=== PATIENT | female | born 1945 | race African-American/Black ===

== ENCOUNTER 2016-12-17 15:52 | Inpatient (IN) | payer OTHER ==
--- NOTE | 2016-12-17 16:46 | PDOC ---
[id number] Illness Initial Comments: 12/17/16 18:00 Ms. Valentine is a 71-year-old female with a PMH of RA, TIA, COPD, right kidney cyst, hypertension, ascending aortic aneruysm (4.5cm)and depression presenting to the ED today with altered mental status 1 week. Patient is a poor historian information from this exam is given by her daughter. Daughter states patient fell on her right hip/side. She was not examined at the time of the fall as daughter believes she did not hit her head or lose consciousness. Fall was unwitnessed. It is unclear as to why she fell. Daughter states that since the fall the patients mental status has been declining. She is unable to give an accurate account of events over the past week. Pt. has no history of dementia. According to the daughter, pt has been vomiting the past two days and is unable to keep solids or fluids down. She also appears to be more short of breath than usual. Daughter reports the patient has an unexplained 30 pound weight loss and is currently being followed by GI. Denies diarrhea or constipation. Denies fever chills, chest pain, palpitations, abdominal pain, dyspnea, and cough. Daughter believes that pt. had a flu shot this year. 12/17/16 18:13 12/17/16 18:39 <Sarita Shields - Last Filed: 12/17/16 18:58> <Neela Burns - Last Filed: 12/17/16 21:29> <Esmer Hyde - Last Filed: 12/20/16 09:51> - General Chief Complaint: Altered Mental Status Stated Complaint: ALTERED MENTAL STATUS Time Seen by Provider: 12/17/16 16:39 Past History - Travel Traveled outside of the country in the last 30 days: No - Past Medical History Cardiac Disorders: No CVA: Yes (TIAs) COPD: Yes (PNEUMONIA) CHF: No Dementia: No Diabetes: Yes (NIDDM) GI Disorders: Yes (Rectal bleed 2013) Disorders: No HTN: Yes Hypercholesterolemia: Yes Liver Disease: No Seizures: No Thyroid Disease: No Other medical history: thoracic aneurysm - Surgical History Abdominal Surgery: Yes Appendectomy: No Cardiac Surgery: No Cholecystectomy: Yes GI Surgery: Yes (bleeding ulcers) Lung Surgery: No Neurologic Surgery: No Orthopedic Surgery: Yes (ACL repair) - Psycho/Social/Smoking Cessation Hx Anxiety: No Suicidal Ideation: No Smoking Status: Yes Smoking History: Current every day smoker Have you smoked in the past 12 months: Yes Number of Cigarettes Smoked Daily: 10 If you are a former smoker, when did you quit?: 6 months Information on smoking cessation initiated: Yes 'Breaking Loose' booklet given: 12/17/14 Hx Alcohol Use: No Drug/Substance Use Hx: No Substance Use Type: None Hx Substance Use Treatment: No <Sarita Shields - Last Filed: 12/17/16 18:58> <Neela Burns - Last Filed: 12/17/16 21:29> <Esmer Hyde - Last Filed: 12/20/16 09:51> - Past Medical History Allergies/Adverse Reactions: Allergies Allergy/AdvReac Type Severity Reaction Status Date / Time No Known Allergies Allergy Verified 12/17/16 15:54 Home Medications: Ambulatory Orders Amlodipine Besylate [Norvasc -] 10 mg PO HS 04/30/15 Aspirin [ASA -] 81 mg PO Q2D 04/30/15 Glipizide [Glipizide ER] 5 mg PO DAILY 04/30/15 Metformin HCl [Metformin HCl ER] 500 mg PO DAILY 04/30/15 Metoprolol Tartrate 100 mg PO DAILY 04/30/15 Morphine Sulfate 30 mg PO DAILY 04/30/15 Multivitamins [Multivit ([facility] Formulary)] 1 tab PO DAILY 04/30/15 Omeprazole [Prilosec (RX)] 40 mg PO DAILY 04/30/15 Oxycodone HCl/Acetaminophen [Percocet 7.5-325 mg Tablet] 1 tab PO Q6H PRN Losartan/Hydrochlorothiazide [Hyzaar 50-12.5 Tablet] 1 each PO DAILY #0 tablet 05/05/15 Albuterol Sulfate Inhaler - [Ventolin Hfa Inhaler -] 2 inh PO Q6H 04/01/16 Fluticasone Prop 0.05% Nasal [Flonase -] 1 - 2 spray NS DAILY 04/01/16 Ipratropium/Albuterol Sulfate [Combivent Respimat Inhal [place]] 4 gm IH BID 04/01 Paroxetine HCl [Paxil] 10 mg PO HS 04/01/16 Ranolazine [Ranexa -] 500 mg PO DAILY 04/01/16 Salmeterol/Fluticasone [Advair 100Mcg/50Mcg -] 1 inh PO BID 04/01/16 Simethicone [Mylicon -] 80 mg PO DAILY PRN 04/01/16 Lipase/Protease/Amylase [[place] 36,000 Units Capsule] 1 each PO TID 12/17/16 *Physical Exam - Vital Signs Last Vital Signs Temp Pulse Resp BP Pulse Ox 98.0 F 100 H 20 130/64 90 L 12/17/16 15:57 12/17/16 15:57 12/17/16 15:57 12/17/16 15:57 12/17/16 15:57 - Physical Exam Comments: 12/17/16 18:39 Head: Normocephalic, atraumatic. No step offs or crepitic felt. Neuro: Pt. is AAOx2. Cannot remember day or month. Aware of person and place. Failed 3 word recall test, 0/3. Sensation and motor is grossly intact b/l. Arm strength B/L 5/5, Leg strength 5/5. no obvious focal neurologic defects. Cranial nerves II-XII grossly intact. HEENT: positive: EOMI, MEHUL, Normal ENT Inspection Neck: positive: Supple. negative: Lymphadenopathy (R), Lymphadenopathy (L) Respiratory/Chest: positive: Wheezing (Expiratory wheeze biliaterally). negative: Respiratory Distress, Accessory Muscle Use Cardiovascular: positive: Regular Rhythm, Regular Rate, S1, S2. negative: Murmur Gastrointestinal/Abdominal: positive: Normal Bowel Sounds, Flat, Soft Integumentary: positive: Bruising (Right hip s/p hfall) Neurologic: positive: preparer samples and repairs II-XII NML intact, Responsive, Disoriented (AAOx2 unaware of date and month) <Sarita Shields - Last Filed: 12/17/16 18:58> - Vital Signs Last Vital Signs Temp Pulse Resp BP Pulse Ox 98.0 F 100 H 20 130/64 90 L 12/17/16 15:57 12/17/16 15:57 12/17/16 15:57 12/17/16 15:57 12/17/16 15:57 <Neela Burns - Last Filed: 12/17/16 21:29> - Vital Signs Last Vital Signs Temp Pulse Resp BP Pulse Ox 98.2 F 99 H 20 138/71 95 12/20/16 06:05 12/20/16 06:05 12/20/16 06:05 12/20/16 06:05 12/20/16 01:00 <Esmer Hyde - Last Filed: 12/20/16 09:51> ED Treatment Course - LABORATORY CBC & Chemistry Diagram: 12/17/16 17:50 12/17/16 17:50 <Sarita Shields - Last Filed: 12/17/16 18:58> - LABORATORY CBC & Chemistry Diagram: 12/17/16 17:50 12/17/16 17:50 - ADDITIONAL ORDERS Additional order review: Laboratory Results 12/17/16 12/17/16 12/17/16 17:50 17:50 17:50 Sodium 145 Potassium 4.3 D Chloride 100 Carbon Dioxide 31 Anion Gap 14 BUN 18 D Creatinine 0.9 Creat Clearance w eGFR > 60 Random Glucose 124 H Lactic Acid 1.446 Calcium 10.7 H Total Bilirubin 0.6 D AST 17 D ALT 21 D Alkaline Phosphatase 65 Creatine Kinase 56 Troponin I < 0.02 Total Protein 7.7 Albumin 3.7 12/17/16 17:50 RBC 5.18 MCV 92.5 MCHC 33.0 RDW 14.1 MPV 8.0 Neutrophils % 46.8 D Lymphocytes % 41.7 H D Monocytes % 8.1 Eosinophils % 1.0 D Basophils % 2.4 H D - Medications Given in the ED: ED Medications Discontinued Medications Generic Name Dose Route Start Last Admin Trade Name Freq PRN Reason Stop Dose Admin Sodium Chloride 500 mls @ 500 mls/hr 12/17/16 17:24 12/17/16 18:01 Normal Saline - IV 12/17/16 18:23 500 mls/hr ASDIR STA Administration Ondansetron HCl 4 mg 12/17/16 20:01 12/17/16 20:08 Zofran Injection IVPUSH 12/17/16 20:02 4 mg ONCE ONE Administration - Consult/PCP Time Called: 09:30 (Dr. Hill/admit to hospitalist) <Neela Burns - Last Filed: 12/17/16 21:29> - LABORATORY CBC & Chemistry Diagram: 12/17/16 17:50 12/18/16 06:00 - ADDITIONAL ORDERS Additional order review: 12/17/16 17:50 RBC 5.18 MCV 92.5 MCHC 33.0 RDW 14.1 MPV 8.0 Neutrophils % 46.8 D Lymphocytes % 41.7 H D Monocytes % 8.1 Eosinophils % 1.0 D Basophils % 2.4 H D - Medications Given in the ED: ED Medications Discontinued Medications Generic Name Dose Route Start Last Admin Trade Name Dylan PRN Reason Stop Dose Admin Sodium Chloride 500 mls @ 500 mls/hr 12/17/16 17:24 12/17/16 18:01 Normal Saline - IV 12/17/16 18:23 500 mls/hr ASDIR STA Administration Sodium Chloride 1,000 mls @ 75 mls/hr 12/17/16 23:45 12/18/16 01:31 Normal Saline - IV 75 mls/hr ASDIR IVANIA Administration Sodium Chloride 1,000 mls @ 75 mls/hr 12/18/16 20:30 12/18/16 21:00 1/2 Normal Saline IV 12/19/16 09:49 75 mls/hr ASDIR IVANIA Administration Ondansetron HCl 4 mg 12/17/16 20:01 12/17/16 20:08 Zofran Injection IVPUSH 12/17/16 20:02 4 mg ONCE ONE Administration <Esmer Hyde - Last Filed: 12/20/16 09:51> Medical Decision Making - Medical Decision Making 12/17/16 18:43 Pt. is a 71 y/o female with a complex medical hx presenting to the ED with altered mental status x1 week. Because of unwitnessed fall with no treatment, we will obtain a head CT to r/o any trauma. EKG, Cardiac labs ordered to r/o a cardiac origin CBC, CMP, lactic acid, CXR ordered to r/o infection as source Will gently hydrate. Re-evaluate. EKG appears unchanged from last visit on Apr [address]-T changes. <Sarita Shields - Last Filed: 12/17/16 18:58> *DC/Admit/Observation/Transfer <Sarita Shields - Last Filed: 12/17/16 18:58> - Discharge Dispostion Admit: Yes <Neela Burns - Last Filed: 12/17/16 21:29> - Attestations Physician Attestion: I reviewed the case with the mid-level practitioner and agree with the mid- level practitioner's assessment, diagnosis and disposition. <Esmer Hyde - Last Filed: 12/20/16 09:51> Diagnosis at time of Disposition: Altered mental state Qualifiers: Altered mental status type: unspecified Qualified Code(s): R41.82 - Altered mental status, unspecified - Discharge Dispostion Condition at time of disposition: Guarded - Referrals
[2016-12-17] MEDS ORDERED: SODIUM CHLORIDE 500 ML IV STA (17:24)
[2016-12-17 18:24] LABS: BASOPHIL 2.4 % (0-2.0); MCH 30.6 pg (25.7-33.7); MEAN CELL VOLUME 92.5 fl (80-96); NEUTROPHILS 46.8 % (42.8-82.8); PLATELET COUNT 325 K/MM3 (134-434); RDW 14.1 % (11.6-15.6); WHITE BLOOD COUNT 4.2 K/mm3 (4.0-10.0)
[2016-12-17 18:49] LABS: ALBUMIN 3.7 g/dl (3.4-5.0); ANION GAP 14 (8-16); CALCIUM 10.7 mg/dL (8.5-10.1); CO2 31 mmol/L (21-32); CREATININE 0.9 mg/dL (0.55-1.02); GLUCOSE,RANDOM 124 mg/dL (74-106); SGOT/AST 17 U/L (15-37); SGPT/ALT 21 U/L (12-78)
[2016-12-17 18:51] LABS: ALK PHOS 65 U/L (45-117); BILIRUBIN,TOTAL 0.6 mg/dL (0.2-1.0); TOT PROT 7.7 g/dl (6.4-8.2)
[2016-12-17 18:53] LABS: TROPONIN I < 0.02 ng/ml (0.00-0.05)
[2016-12-17] MEDS ORDERED: ONDANSETRON 4 MG/2 ML VIAL IVPUSH ONE (20:01)
[2016-12-17] MEDS ORDERED: ONDANSETRON 4 MG/2 ML VIAL ONE (20:05)
--- NOTE | 2016-12-17 23:29 | HP ---
<Nena Manzano - Last Filed: 12/18/16 00:04> CHIEF COMPLAINT: AMS PCP: N/A HISTORY OF PRESENT ILLNESS: The patient is a 71 yo F, with daughter at bedside with a PMHx of depression with AMS for the past 3 days. The patients daughter states that 2 days ago, she was found outside her apartment unaware where her apartment was. Neighbors contacted the daughter and since then has noticed altered mental status, confusion and unsteady gait. The patients daughter also reports decreased appetite and unexplained weight loss and excessive vomiting. It is also noted that, the patient fell a week ago however denies any current pain. The patient was recently treated for URI and finished course of Augmentin. Recent Travel: None PAST MEDICAL HISTORY: RA TIA R Kidney cyst HTN Infarct (head) Ascending aortic aneurysm (4.5 cm) NIDD Type 2 Depression GI Bleed PAST SURGICAL HISTORY: Cardiac Catheterization L knee Arthroscopic Surgery Social History: Smoking: Current everyday tobacco smoker Alcohol: None Drugs: None Family History: Father- [place] Allergies No Known Allergies Allergy (Verified 12/17/16 15:54) HOME MEDICATIONS: Medication Instructions Recorded Amlodipine Besylate [Norvasc -] 10 mg PO HS 04/30/15 Aspirin [ASA -] 81 mg PO Q2D 04/30/15 Glipizide [Glipizide ER] 5 mg PO DAILY 04/30/15 Metformin HCl [Metformin HCl ER] 500 mg PO DAILY 04/30/15 Metoprolol Tartrate 100 mg PO DAILY 04/30/15 Morphine Sulfate 30 mg PO DAILY 04/30/15 Multivitamins [Multivit ([facility] 1 tab PO DAILY 04/30/15 Formulary)] Omeprazole [Prilosec (RX)] 40 mg PO DAILY 04/30/15 Oxycodone HCl/Acetaminophen 1 tab PO Q6H PRN 04/30/15 [Percocet 7.5-325 mg Tablet] Losartan/Hydrochlorothiazide 1 each PO DAILY #0 tablet 05/05/15 [Hyzaar 50-12.5 Tablet] Albuterol Sulfate Inhaler - 2 inh PO Q6H 04/01/16 [Ventolin Hfa Inhaler -] Fluticasone Prop 0.05% Nasal 1 - 2 spray NS DAILY 04/01/16 [Flonase -] Ipratropium/Albuterol Sulfate 4 gm IH BID 04/01/16 [Combivent Respimat Inhal [place]] Paroxetine HCl [Paxil] 10 mg PO HS 04/01/16 Ranolazine [Ranexa -] 500 mg PO DAILY 04/01/16 Salmeterol/Fluticasone [Advair 1 inh PO BID 04/01/16 100Mcg/50Mcg -] Simethicone [Mylicon -] 80 mg PO DAILY PRN 04/01/16 Lipase/Protease/Amylase [Creon Dr 1 each PO TID 12/17/16 36,000 Units Capsule] REVIEW OF SYSTEMS CONSTITUTIONAL: Absent: fever, chills, diaphoresis, generalized weakness, malaise, loss of appetite, weight change HEENT: Absent: rhinorrhea, nasal congestion, throat pain, throat swelling, difficulty swallowing, mouth swelling, ear pain, eye pain, visual changes CARDIOVASCULAR: Absent: chest pain, syncope, palpitations, irregular heart rate, lightheadedness , peripheral edema RESPIRATORY: Absent: cough, shortness of breath, dyspnea with exertion, orthopnea, wheezing, stridor, hemoptysis GASTROINTESTINAL: Absent: abdominal pain, abdominal distension, nausea, vomiting, diarrhea, constipation, melena, hematochezia GENITOURINARY: Absent: dysuria, frequency, urgency, hesitancy, hematuria, flank pain, genital pain MUSCULOSKELETAL: Absent: myalgia, arthralgia, joint swelling, back pain, neck pain SKIN: Absent: rash, itching, pallor HEMATOLOGIC/IMMUNOLOGIC: Absent: easy bleeding, easy bruising, lymphadenopathy, frequent infections ENDOCRINE: Absent: unexplained weight gain, unexplained weight loss, heat intolerance, cold intolerance NEUROLOGIC: +mental status change. + unsteady gait. Absent: headache, focal weakness or paresthesias, dizziness, seizure, bladder or bowel incontinence PSYCHIATRIC: Absent: anxiety, depression, suicidal or homicidal ideation, hallucinations. PHYSICAL EXAMINATION Vital Signs - 24 hr 12/17/16 23:17 Pulse Rate [ 88 Right Radial] Respiratory 20 Rate Blood Pressure 126/65 [Left Arm] O2 Sat by Pulse 97 Oximetry (%) GENERAL: +Confusion. +Disoriented to time. Awake, alert and in no acute distress. HEAD: Normal with no signs of trauma. EYES: Pupils equal, round and reactive to light, extraocular movements intact, sclera anicteric, conjunctiva clear. No lid lag. EARS, NOSE, THROAT: Ears normal, nares patent, oropharynx clear without exudates. Moist mucous membranes. NECK: Normal range of motion, supple without lymphadenopathy, JVD, or masses. LUNGS: + Bilateral bibasilar scattered wheezing. Breath sounds equal. No crackles. No accessory muscle use. HEART: Regular rate and rhythm, normal S1 and S2 without murmur, rub or gallop. ABDOMEN: Soft, nontender, not distended, normoactive bowel sounds, no guarding, no rebound, no masses. No hepatomegaly or splenomegaly. MUSCULOSKELETAL: Normal range of motion at all joints. No bony deformities or tenderness. No CVA tenderness. UPPER EXTREMITIES: 2+ pulses, warm, well-perfused. No cyanosis. No clubbing. Cap refill <2 seconds. No peripheral edema. LOWER EXTREMITIES: 2+ pulses, warm, well-perfused. No calf tenderness. No peripheral edema. NEUROLOGICAL: Cranial nerves II-XII intact. Normal speech. PSYCHIATRIC: Cooperative. Good eye contact. Appropriate mood and affect. SKIN: Warm, dry, normal turgor, no rashes or lesions noted. Imaging: Cranial CT without contrast Chronic left basal ganglia infarct (involving the head of the caudate nucleus). Mild to moderate periventricular and subcortical chronic microvascular ischemic changes. No gross mass lesion is identified. No extra axial fluid collections. The ventricles and cisterns appear unremarkable. Impression: No CT evidence of acute intracranial pathology. Chronic findings as discussed. ASSESSMENT/PLAN: 1.) AMS- acute metabolic encephalopathy vs CVA vs new onset dementia. As per daughter, abrupt onset of symptoms. Nonfocal exam however is confused and disoriented. CT Scan suggestive of chronic microvascular ischemic changes and L basal ganglia infarct. Patient noted to have decreased PO intake. - r/o infectious processes - Obtain urine analysis - IVF hydration - Avoid narcotics (taking percocet at home) - B12 Levels - Neurology Evaluation - Physical therapy assessment 2.) HTN stable - Continue home meds 3.) Hx of vomiting, decreased oral intake and unexplained weight loss over the past year. - Nutritional consult - Zofran PRN - IVF hydration 4.) COPD- Stable( no signs of exacerbation) Chronic smoker - Nebulizers PRN 5.) Diabetes Management - Continue current medications and Accuchecks with Sliding scale coverage 6.) DVT PPx - SCDs Admit to observation. Documentation prepared by Nena Manzano, acting as medical transport specialist for Otoniel Trujillo MD. <Otoniel Trujillo - Last Filed: 12/18/16 00:36> Visit type - Emergency Visit Emergency Visit: Yes ED Registration Date: 12/17/16 Care time: The patient presented to the Emergency Department on the above date and was hospitalized for further evaluation of their emergent condition. - New Patient This patient is new to me today: Yes Date on this admission: 12/17/16 - Critical Care Critical Care patient: No
[2016-12-17] MEDS ORDERED: SODIUM CHLORIDE 1,000 ML IV SCH (23:45)
[2016-12-17] MEDS ORDERED: ALBUTEROL SO4 6.7 GM HFA INHALER IH PRN (23:45)
[2016-12-18 02:27] VITALS: BMI 23.3
[2016-12-18] MEDS: glipiZIDE-XL 5 MG TAB.ER.24 PO SCH (06:10)
[2016-12-18] MEDS: INSULIN SLIDING SCALE (NOVOLOG) 1 VIAL SQ SCH ×4 (06:11→22:13)
[2016-12-18 07:54] LABS: CALCIUM 9.9 mg/dL (8.5-10.1); CREATININE 0.8 mg/dL (0.55-1.02)
[2016-12-18 09:15] LABS: URINE APPEARANCE CLEAR; URINE BILIRUBIN NEGATIVE (NEGATIVE); URINE BLOOD NEGATIVE (NEGATIVE); URINE COLOR AMBER; URINE GLUCOSE (UA) NEGATIVE (NEGATIVE); URINE KETONE NEGATIVE (NEGATIVE); URINE LEUK ESTERASE NEGATIVE (NEGATIVE); URINE NITRITE NEGATIVE (NEGATIVE); URINE UROBILINOGEN NEGATIVE E.U./dl (0.2-1.0)
[2016-12-18 09:21] LABS: URINE PROTEIN 1+ (NEGATIVE)
[2016-12-18 09:23] LABS: GRANULAR CASTS 17 /lpf; URINE BACTERIA MODERATE /hpf (NONE SEEN); URINE HYALINE CAST 8 /lpf; URINE MUCUS MANY; URINE RBC 1 /hpf (0-3); URINE WBC 9 /hpf (3-5)
[2016-12-18] MEDS ORDERED: FLUTICASONE PROP 0.05% 16 GM NASAL SPRAY NS SCH (10:00)
[2016-12-18] MEDS ORDERED: PATIENT'S OWN MEDICATION (NON-FORMULARY) (Ipratropium/Albuterol Sulfate [Combivent Respima IH SCH (10:00)
[2016-12-18] MEDS: PANTOPRAZOLE 40 MG TABLET (FP) PO SCH (12:37)
[2016-12-18] MEDS: SIMETHICONE 80 MG TAB.CHEW (FP) PO PRN (12:38)
[2016-12-18] MEDS: RANOLAZINE E.R. 500 MG TABLET (FP) PO SCH (12:38)
[2016-12-18] MEDS: FLUTICASONE PROP 0.05% 16 GM NASAL SPRAY NS SCH ×2 (12:38→12:39)
[2016-12-18] MEDS: FLUTICASONE/SALMETEROL 100 MCG/50 MCG DISKUS IH SCH ×2 (12:38→22:08)
--- NOTE | 2016-12-18 13:40 | CON.NEURO ---
Consult Consult Specialty:: Aisha neurology Referred by:: ER Reason for Consultation:: AMS - History of Present Illness History of Present Illness: 71 man with ams Seen on the floor Head Ct reviewed I saw the patient on the floor patient was confused agitated patient was in the cord or Exam was limited basically to the nursing report of any seizure like activity Patient's on IV fluid confused combative at time PAST MEDICAL HISTORY: RA TIA R Kidney cyst HTN Infarct (head) Ascending aortic aneurysm (4.5 cm) NIDD Type 2 Depression GI Bleed - History Source History Provided By: Patient Limitations to Obtaining History: Clinical Condition - Past Medical History Cardio/Vascular: Yes: HTN Pulmonary: Yes: COPD Rheumatology: Yes: Rheumatoid Arthritis Endocrine: Yes: Diabetes Mellitus - Past Surgical History Past Surgical History: Yes: Hysterectomy, Appendectomy, Cholecystectomy - Alcohol/Substance Use Hx Alcohol Use: No - Smoking History Smoking history: Current every day smoker Have you smoked in the past 12 months: Yes Aproximately how many cigarettes per day: 10 If you are a former smoker, when did you quit?: 6 months Home Medications - Allergies Allergies/Adverse Reactions: Allergies Allergy/AdvReac Type Severity Reaction Status Date / Time No Known Allergies Allergy Verified 12/17/16 15:54 - Home Medications Home Medications: Ambulatory Orders Amlodipine Besylate [Norvasc -] 10 mg PO HS 04/30/15 Aspirin [ASA -] 81 mg PO Q2D 04/30/15 Glipizide [Glipizide ER] 5 mg PO DAILY 04/30/15 Metformin HCl [Metformin HCl ER] 500 mg PO DAILY 04/30/15 Metoprolol Tartrate 100 mg PO DAILY 04/30/15 Morphine Sulfate 30 mg PO DAILY 04/30/15 Multivitamins [Multivit ([facility] Formulary)] 1 tab PO DAILY 04/30/15 Omeprazole [Prilosec (RX)] 40 mg PO DAILY 04/30/15 Oxycodone HCl/Acetaminophen [Percocet 7.5-325 mg Tablet] 1 tab PO Q6H PRN Losartan/Hydrochlorothiazide [Hyzaar 50-12.5 Tablet] 1 each PO DAILY #0 tablet 05/05/15 Albuterol Sulfate Inhaler - [Ventolin Hfa Inhaler -] 2 inh PO Q6H 04/01/16 Fluticasone Prop 0.05% Nasal [Flonase -] 1 - 2 spray NS DAILY 04/01/16 Ipratropium/Albuterol Sulfate [Combivent Respimat Inhal [place]] 4 gm IH BID 04/01 Paroxetine HCl [Paxil] 10 mg PO HS 04/01/16 Ranolazine [Ranexa -] 500 mg PO DAILY 04/01/16 Salmeterol/Fluticasone [Advair 100Mcg/50Mcg -] 1 inh PO BID 04/01/16 Simethicone [Mylicon -] 80 mg PO DAILY PRN 04/01/16 Lipase/Protease/Amylase [[place] 36,000 Units Capsule] 1 each PO TID 12/17/16 Family Disease History - Family Disease History Family History: Unable to Obtain Family Disease History: Heart Disease: Father, Brother, Sister Review of Systems - Review of Systems Constitutional: reports: No Symptoms Eyes: reports: No Symptoms Physical Exam-Neuro Vital Signs: Vital Signs Temperature 98.8 F 12/18/16 06:00 Pulse Rate 107 H 12/18/16 06:00 Respiratory Rate 18 12/18/16 06:00 Blood Pressure 135/86 12/18/16 06:00 O2 Sat by Pulse Oximetry (%) 97 12/17/16 23:17 Constitutional: Yes: Well Nourished Neck: Yes: WNL Labs: CBC, BMP 12/18/16 06:00 - Neuro Exam Level Of Consciousness: Yes: Oriented to Person, Oriented to Place Eyes: Yes: PERRLA Speech: WNL Dominant Hand: Right Mini Mental Exam: 22 Gag: Present DTR's: 1+ Left Bicep, 1+ Right Bicep, 1+ Right Tricep, 1+ Left Brachioradialis, 1+ Left Achilles, 1+ Right Achilles Response to light touch: Abnormal Response to pain prick: Abnormal Response to temperature: Abnormal Motor Strength: 3/5: Left Arm, Right Arm, Left Leg, Right Leg Imaging - Results Cat Scan: Image Reviewed Problem List - Problems (1) Altered mental state Code(s): R41.82 - ALTERED MENTAL STATUS, UNSPECIFIED Qualifiers: Altered mental status type: unspecified Qualified Code(s): R41.82 - Altered mental status, unspecified (2) CVA (cerebral vascular accident) Code(s): I63.9 - CEREBRAL INFARCTION, UNSPECIFIED Assessment/Plan Head Ct with ?? age caudate left CVA 1. Neuro checks' 2. MRI brain with no Rohan 3. EEG 4. Blood work 5. Two baby ASA Thank you fro [facility] referral
[2016-12-18] MEDS: LOSARTAN 50MG/HCTZ 12.5MG 1 TAB (FP) PO SCH (17:46)
--- NOTE | 2016-12-18 19:09 | PN ---
Physical Exam: SUBJECTIVE: Patient seen and examined This patient is a 71 yo female with a PMHx of depression with AMS for the past 3 days. As per daughter patient has dementia for the past one year with worsening dementia for the past 4 days, also patient was found in her neighbor' s house as per Daughter .Patient is confused , disoriented x2, except oriented to her daughter. Patient lives with her daughter who is a nurse. It is also noted that, the patient fell a week ago however denies any current pain. The patient was recently treated for URI and finished course of Augmentin. OBJECTIVE: Vital Signs Period Temp Pulse Resp BP Sys/Cox Pulse Ox Last 24 Hr 98.0 F-99 F 88-107 18-20 125-136/65-86 97-97 GENERAL: The patient is awake, alert, and disoriented x 2 , place and time but in no acute distress. HEAD: Normal with no signs of trauma. EYES: PERRL, extraocular movements intact, sclera anicteric, conjunctiva clear. ENT: Ears normal, nares patent, oropharynx clear without exudates, moist mucous membranes. NECK: Trachea midline, full range of motion, supple. LUNGS: Breath sounds equal, clear to auscultation bilaterally, no wheezes, no crackles, no accessory muscle use. HEART: Regular rate and rhythm, S1, S2 positive, DARCIE 2/6 , no rub or gallop. ABDOMEN: Soft, nontender, nondistended, normoactive bowel sounds, no guarding, no rebound, no hepatosplenomegaly, no masses. EXTREMITIES: 2+ pulses, warm, well-perfused, no edema. NEUROLOGICAL: Cranial nerves II through XII grossly intact. Normal speech, gait is normal PSYCH: Normal mood, normal affect. SKIN: Warm, dry, normal turgor, no rashes or lesions noted Laboratory Results - last 24 hr 12/18/16 12/18/16 12/18/16 05:57 06:00 06:00 Sodium 141 Potassium 3.8 Chloride 101 Carbon Dioxide 30 Anion Gap 10 BUN 16 Creatinine 0.8 POC Glucometer 115 Random Glucose 128 H Calcium 9.9 Ammonia Vitamin B12 Urine Color Wendy Urine Appearance Clear Urine pH 5.0 Ur Specific [place] 1.023 Urine Protein 1+ H Urine Glucose (UA) Negative Urine Ketones Negative Urine Blood Negative Urine Nitrite Negative Urine Bilirubin Negative Urine Urobilinogen Negative Ur Leukocyte Esterase Negative Urine RBC 1 Urine WBC 9 Ur Epithelial Cells Rare Urine Bacteria Moderate Hyaline Casts 8 Granular Casts 17 Urine Mucus Many 12/18/16 12/18/16 12/18/16 11:44 13:45 13:45 Sodium Potassium Chloride Carbon Dioxide Anion Gap BUN Creatinine POC Glucometer 67 Random Glucose Calcium Ammonia 23.3 Vitamin B12 1508 H Urine Color Urine Appearance Urine pH Ur Specific [place] Urine Protein Urine Glucose (UA) Urine Ketones Urine Blood Urine Nitrite Urine Bilirubin Urine Urobilinogen Ur Leukocyte Esterase Urine RBC Urine WBC Ur Epithelial Cells Urine Bacteria Hyaline Casts Granular Casts Urine Mucus 12/18/16 17:51 Sodium Potassium Chloride Carbon Dioxide Anion Gap BUN Creatinine POC Glucometer 141 Random Glucose Calcium Ammonia Vitamin B12 Urine Color Urine Appearance Urine pH Ur Specific [place] Urine Protein Urine Glucose (UA) Urine Ketones Urine Blood Urine Nitrite Urine Bilirubin Urine Urobilinogen Ur Leukocyte Esterase Urine RBC Urine WBC Ur Epithelial Cells Urine Bacteria Hyaline Casts Granular Casts Urine Mucus Active Medications Generic Name Dose Route Start Last Admin Trade Name Freq PRN Reason Stop Dose Admin Acetaminophen 650 mg 12/18/16 18:34 Tylenol - PO Q4H PRN FEVER OR PAIN Albuterol Sulfate 2 puff 12/17/16 23:45 Ventolin Hfa Inhaler - IH Q6H PRN Amlodipine Besylate 10 mg 12/18/16 22:00 Norvasc - PO HS IVANIA Aspirin 81 mg 12/19/16 10:00 Asa - PO Q2D IVANIA Fluticasone Propionate 1 spray 12/18/16 10:00 12/18/16 12:39 Flonase - NS 1 spray DAILY IVANIA Administration Fluticasone Propionate 2 spray 12/18/16 10:00 12/18/16 12:38 Flonase - NS 2 spray DAILY IVANIA Administration Glipizide 5 mg 12/18/16 07:00 12/18/16 06:10 Glucotrol Xl - PO 5 mg DAILY@0700 IVANIA Administration HCTZ/Losartan Potassium 1 tab 12/18/16 10:00 12/18/16 17:46 Hyzaar - PO Not Given DAILY IVANIA Sodium Chloride 1,000 mls @ 75 mls/hr 12/17/16 23:45 12/18/16 01:31 Normal Saline - IV 75 mls/hr ASDIR IVANIA Administration Insulin Aspart 1 vial 12/18/16 07:00 12/18/16 17:52 Novolog Vial Sliding Scale - SQ Not Given ACHS IVANIA Protocol Metformin HCl 500 mg 12/18/16 07:00 12/18/16 06:10 Glucophage Xr - PO 500 mg AM IVANIA Administration Non-Formulary Medication 4 gm 12/18/16 10:00 Ipratropium/Albuterol Sulfate [Combivent Respimat Inhal [place]] IH BID IVANIA Pantoprazole Sodium 40 mg 12/18/16 10:00 12/18/16 12:37 Protonix - PO 40 mg DAILY IVANIA Administration Paroxetine HCl 10 mg 12/18/16 22:00 Paxil Oral Suspension - PO HS IVANIA Ranolazine 500 mg 12/18/16 10:00 12/18/16 12:38 Ranexa - PO 500 mg DAILY IVANIA Administration Fluticasone/Salmeterol 1 puff 12/18/16 10:00 12/18/16 12:38 Advair 100mcg/50mcg - IH 1 puff BID IVANIA Administration Simethicone 80 mg 12/17/16 23:36 12/18/16 12:38 Mylicon - PO 80 mg DAILY PRN Administration DYSPEPSIA Cranial CT without contrast Chronic left basal ganglia infarct (involving the head of the caudate nucleus). Mild to moderate periventricular and subcortical chronic microvascular ischemic changes. No gross mass lesion is identified. No extra axial fluid collections. The ventricles and cisterns appear unremarkable. Impression: No CT evidence of acute intracranial pathology. Chronic findings as discussed. ASSESSMENT/PLAN: This patient is a 71 yo female with a PMHx of depression with AMS for the past 3 days. was brought in for further w/u by her daughter. # AMS- acute metabolic encephalopathy vs CVA vs progressive dementia. CT Scan suggestive of chronic microvascular ischemic changes and L basal ganglia infarct. Patient noted to have decreased PO intake. Avoid narcotics (taking percocet at home), IVF, B12 Levels ordered pending, Neurology Evaluation appreciated, MRI of the brain ordered - Physical therapy assessment # HTN stable Continue home meds # Hx of COPD- Stable, Chronic smoker , Nebulizers PRN # T2DM , continue metformin, Diabetic Management, SS with coverage with Sliding scale DVT PPx SCDs Visit type - Emergency Visit Emergency Visit: Yes ED Registration Date: 12/17/16 Care time: The patient presented to the Emergency Department on the above date and was hospitalized for further evaluation of their emergent condition. - New Patient This patient is new to me today: Yes Date on this admission: 12/18/16 - Critical Care Critical Care patient: No
[2016-12-18] MEDS ORDERED: SODIUM CHLORIDE 0.45% 1,000 ML IV SCH ×2 (20:30)
[2016-12-18] MEDS ORDERED: PT OWN MED DRAWER 7, Y5N ONE ×2 (21:00→22:30)
[2016-12-18] MEDS: amLODIPine BESYLATE 10 MG TABLET (FP) PO SCH (22:08)
[2016-12-18] MEDS: PAROXETINE HCL PO SCH (22:08)
[2016-12-19] MEDS: glipiZIDE-XL 5 MG TAB.ER.24 PO SCH (06:42)
[2016-12-19] MEDS: INSULIN SLIDING SCALE (NOVOLOG) 1 VIAL SQ SCH ×4 (06:46→22:19)
[2016-12-19] MEDS: ASPIRIN 81 MG CHEWABLE TABLETS PO SCH (10:00)
[2016-12-19] MEDS: LOSARTAN 50MG/HCTZ 12.5MG 1 TAB (FP) PO SCH (10:00)
[2016-12-19] MEDS: FLUTICASONE PROP 0.05% 16 GM NASAL SPRAY NS SCH ×2 (15:38→15:39)
[2016-12-19] MEDS: FLUTICASONE/SALMETEROL 100 MCG/50 MCG DISKUS IH SCH ×2 (15:38→22:57)
[2016-12-19] MEDS: PANTOPRAZOLE 40 MG TABLET (FP) PO SCH (15:40)
[2016-12-19] MEDS: RANOLAZINE E.R. 500 MG TABLET (FP) PO SCH (15:40)
[2016-12-19] MEDS: ACETAMINOPHEN 325 MG TABLET (FP) PO PRN (18:04)
--- NOTE | 2016-12-19 19:15 | PN ---
Physical Exam: SUBJECTIVE: Patient seen and examined Patient is slightly better but still confused, daughter at bedside. OBJECTIVE: Vital Signs Period Temp Pulse Resp BP Sys/Cox Pulse Ox Last 24 Hr 97.2 F-98.1 F 82-93 18-20 121-145/59-97 97 GENERAL: The patient is awake, alert, and disoriented x 2 , place and time but in no acute distress. HEAD: Normal with no signs of trauma. EYES: PERRL, extraocular movements intact, sclera anicteric, conjunctiva clear. ENT: Ears normal, nares patent, oropharynx clear without exudates, moist mucous membranes. NECK: Trachea midline, full range of motion, supple. LUNGS: Breath sounds equal, clear to auscultation bilaterally, no wheezes, no crackles, no accessory muscle use. HEART: Regular rate and rhythm, S1, S2 positive, DARCIE 2/6 , no rub or gallop. ABDOMEN: Soft, nontender, nondistended, normoactive bowel sounds, no guarding, no rebound, no hepatosplenomegaly, no masses. EXTREMITIES: 2+ pulses, warm, well-perfused, no edema. NEUROLOGICAL: Cranial nerves II through XII grossly intact. Normal speech, gait is normal PSYCH: Normal mood, normal affect. SKIN: Warm, dry, normal turgor, no rashes or lesions noted Laboratory Results - last 24 hr 12/18/16 12/19/16 12/19/16 22:12 06:00 06:00 ESR > 130 H POC Glucometer 103 RPR Titer Nonreactive 12/19/16 12/19/16 06:44 11:57 ESR POC Glucometer 116 119 RPR Titer Active Medications Generic Name Dose Route Start Last Admin Trade Name Freq PRN Reason Stop Dose Admin Acetaminophen 650 mg 12/18/16 18:34 12/19/16 18:04 Tylenol - PO 650 mg Q4H PRN Administration FEVER OR PAIN Albuterol Sulfate 2 puff 12/17/16 23:45 Ventolin Hfa Inhaler - IH Q6H PRN Amlodipine Besylate 10 mg 12/18/16 22:00 12/18/16 22:08 Norvasc - PO 10 mg HS IVANIA Administration Aspirin 81 mg 12/19/16 10:00 12/19/16 10:00 Asa - PO 81 mg Q2D IVANIA Administration Fluticasone Propionate 1 spray 12/18/16 10:00 12/19/16 15:38 Flonase - NS 1 spray DAILY VIANIA Administration Fluticasone Propionate 2 spray 12/18/16 10:00 12/19/16 15:39 Flonase - NS 2 spray DAILY IVANIA Administration Glipizide 5 mg 12/18/16 07:00 12/19/16 06:42 Glucotrol Xl - PO 5 mg DAILY@0700 IVANIA Administration HCTZ/Losartan Potassium 1 tab 12/18/16 10:00 12/19/16 10:00 Hyzaar - PO 1 tab DAILY IVANIA Administration Insulin Aspart 1 vial 12/18/16 07:00 12/19/16 18:01 Novolog Vial Sliding Scale - SQ Not Given ACHS [facility] Protocol Metformin HCl 500 mg 12/18/16 07:00 12/19/16 06:42 Glucophage Xr - PO 500 mg AM IVANIA Administration Non-Formulary Medication 4 gm 12/18/16 10:00 Ipratropium/Albuterol Sulfate [Combivent Respimat Inhal [place]] IH BID IVANIA Pantoprazole Sodium 40 mg 12/18/16 10:00 12/19/16 15:40 Protonix - PO 40 mg DAILY IVANIA Administration Paroxetine HCl 10 mg 12/18/16 22:00 12/18/16 22:08 Paxil Oral Suspension - PO 10 mg HS [facility] Administration Ranolazine 500 mg 12/18/16 10:00 12/19/16 15:40 Ranexa - PO 500 mg DAILY IVANIA Administration Fluticasone/Salmeterol 1 puff 12/18/16 10:00 12/19/16 15:38 Advair 100mcg/50mcg - IH 1 puff BID IVANIA Administration Simethicone 80 mg 12/17/16 23:36 12/18/16 12:38 Mylicon - PO 80 mg DAILY PRN Administration DYSPEPSIA Medication Instructions Recorded Amlodipine Besylate [Norvasc -] 10 mg PO HS 04/30/15 Aspirin [ASA -] 81 mg PO Q2D 04/30/15 Glipizide [Glipizide ER] 5 mg PO DAILY 04/30/15 Metformin HCl [Metformin HCl ER] 500 mg PO DAILY 04/30/15 Metoprolol Tartrate 100 mg PO DAILY 04/30/15 Morphine Sulfate 30 mg PO DAILY 04/30/15 Multivitamins [Multivit ([facility] 1 tab PO DAILY 04/30/15 Formulary)] Omeprazole [Prilosec (RX)] 40 mg PO DAILY 04/30/15 Oxycodone HCl/Acetaminophen 1 tab PO Q6H PRN 04/30/15 [Percocet 7.5-325 mg Tablet] Losartan/Hydrochlorothiazide 1 each PO DAILY #0 tablet 05/05/15 [Hyzaar 50-12.5 Tablet] Albuterol Sulfate Inhaler - 2 inh PO Q6H 04/01/16 [Ventolin Hfa Inhaler -] Fluticasone Prop 0.05% Nasal 1 - 2 spray NS DAILY 04/01/16 [Flonase -] Ipratropium/Albuterol Sulfate 4 gm IH BID 04/01/16 [Combivent Respimat Inhal [place]] Paroxetine HCl [Paxil] 10 mg PO HS 04/01/16 Ranolazine [Ranexa -] 500 mg PO DAILY 04/01/16 Salmeterol/Fluticasone [Advair 1 inh PO BID 04/01/16 100Mcg/50Mcg -] Simethicone [Mylicon -] 80 mg PO DAILY PRN 04/01/16 Lipase/Protease/Amylase [Creon Dr 1 each PO TID 12/17/16 36,000 Units Capsule] Cranial CT without contrast :Chronic left basal ganglia infarct (involving the head of the caudate nucleus). Mild to moderate periventricular and subcortical chronic microvascular ischemic changes. No gross mass lesion is identified. No extra axial fluid collections. The ventricles and cisterns appear unremarkable. Impression: No CT evidence of acute intracranial pathology. Chronic findings as discussed. ASSESSMENT/PLAN: This patient is a 71 yo female with a PMHx of depression with AMS for the past 3 days. was brought in for further w/u by her daughter. # AMS- most likely due to progressive , worsening dementia. MRI attempted yesterday, patient unable to tolerate. Avoid narcotics (taking percocet at home), IVF, B12 Levels within normal limits , Neurology Evaluation appreciated. Discussed with neurologist regarding MRI of brain without constrast not done yet ,Neurologist will add mild dose of ativan for the patient to tolerate the test. EEG as per neurology , Dementia w/u, will get Psych to evaluate the patient. # HTN stable Continue home meds # Hx of COPD- Stable, Chronic smoker , Nebulizers PRN # T2DM , continue metformin, Diabetic Management, SS with coverage with Sliding scale DVT PPx SCDs Visit type - Emergency Visit Emergency Visit: Yes ED Registration Date: 12/17/16 Care time: The patient presented to the Emergency Department on the above date and was hospitalized for further evaluation of their emergent condition. - New Patient This patient is new to me today: No - Critical Care Critical Care patient: No
[2016-12-19] MEDS: PAROXETINE HCL PO SCH (22:23)
[2016-12-19] MEDS: amLODIPine BESYLATE 10 MG TABLET (FP) PO SCH (22:23)
[2016-12-19] MEDS ORDERED: INSULIN (NOVOLOG) ASPART 100 UNITS/ML 10ML VIAL ONE (23:09)
[2016-12-20] MEDS: SIMETHICONE 80 MG TAB.CHEW (FP) PO PRN (04:11)
[2016-12-20] MEDS: INSULIN SLIDING SCALE (NOVOLOG) 1 VIAL SQ SCH ×4 (06:41→22:30)
[2016-12-20] MEDS: glipiZIDE-XL 5 MG TAB.ER.24 PO SCH (06:43)
[2016-12-20] MEDS: FLUTICASONE PROP 0.05% 16 GM NASAL SPRAY NS SCH ×2 (10:00→11:10)
[2016-12-20] MEDS ORDERED: LORAZEPAM CARPU-JECT 2 MG/ML DISP.SYRIN IM ONE (10:58)
[2016-12-20] MEDS ORDERED: PT OWN MED DRAWER 7, Y5N ONE (11:00)
[2016-12-20] MEDS: FLUTICASONE/SALMETEROL 100 MCG/50 MCG DISKUS IH SCH ×2 (11:07→22:56)
[2016-12-20] MEDS: PANTOPRAZOLE 40 MG TABLET (FP) PO SCH (11:08)
[2016-12-20] MEDS: RANOLAZINE E.R. 500 MG TABLET (FP) PO SCH (11:09)
[2016-12-20] MEDS: LOSARTAN 50MG/HCTZ 12.5MG 1 TAB (FP) PO SCH (11:09)
[2016-12-20] MEDS: ACETAMINOPHEN 325 MG TABLET (FP) PO PRN (11:10)
--- NOTE | 2016-12-20 12:26 | PN ---
Progress Note, Physician History of Present Illness: 71 year old woman, history of depression, presents to hospital with increasing confusion. The patient's daughter is at bedside and provides history. She reports several weeks of confusion and two days ago was unaware of where her apartment is. Her daughter also reports decreased appetite and vomiting prior to admission. Since admission slight improvement but still remains confused MRI attempted yesterday, patient unable to tolerate. - Current Medication List Current Medications: Active Medications Acetaminophen (Tylenol -) 650 mg PO Q4H PRN PRN Reason: FEVER OR PAIN Last Admin: 12/20/16 11:10 Dose: 650 mg Albuterol Sulfate (Ventolin Hfa Inhaler -) 2 puff IH Q6H PRN Amlodipine Besylate (Norvasc -) 10 mg PO HS [facility] Last Admin: 12/19/16 22:23 Dose: 10 mg Aspirin (Asa -) 81 mg PO Q2D [facility] Last Admin: 12/19/16 10:00 Dose: 81 mg Fluticasone Propionate (Flonase -) 1 spray NS DAILY [facility] Last Admin: 12/20/16 11:10 Dose: 1 spray Fluticasone Propionate (Flonase -) 2 spray NS DAILY [facility] Last Admin: 12/19/16 15:39 Dose: 2 spray Glipizide (Glucotrol Xl -) 5 mg PO DAILY@0700 [facility] Last Admin: 12/20/16 06:43 Dose: 5 mg HCTZ/Losartan Potassium (Hyzaar -) 1 tab PO DAILY [facility] Last Admin: 12/20/16 11:09 Dose: 1 tab Insulin Aspart (Novolog Vial Sliding Scale -) 1 vial SQ ACHS [facility] PRN Reason: Protocol Last Admin: 12/20/16 06:41 Dose: 2 units Lorazepam (Ativan -) 0.5 mg PO ONCE ONE Stop: 12/20/16 11:02 Metformin HCl (Glucophage Xr -) 500 mg PO AM [facility] Last Admin: 12/20/16 06:43 Dose: 500 mg Non-Formulary Medication (Ipratropium/Albuterol Sulfate [Combivent Respimat Inhal [place]]) 4 gm IH BID [facility] Pantoprazole Sodium (Protonix -) 40 mg PO DAILY [facility] Last Admin: 12/20/16 11:08 Dose: 40 mg Paroxetine HCl (Paxil Oral Suspension -) 10 mg PO HS [facility] Last Admin: 12/19/16 22:23 Dose: 10 mg Ranolazine (Ranexa -) 500 mg PO DAILY [facility] Last Admin: 12/20/16 11:09 Dose: 500 mg Fluticasone/Salmeterol (Advair 100mcg/50mcg -) 1 puff IH BID IVANIA Last Admin: 12/20/16 11:07 Dose: 1 puff Simethicone (Mylicon -) 80 mg PO DAILY PRN PRN Reason: DYSPEPSIA Last Admin: 12/20/16 04:11 Dose: 80 mg - Objective Vital Signs: Vital Signs Temperature 98.8 F 12/20/16 10:00 Pulse Rate 94 H 12/20/16 10:00 Respiratory Rate 20 12/20/16 10:00 Blood Pressure 132/71 12/20/16 10:00 O2 Sat by Pulse Oximetry (%) 95 12/20/16 01:00 Constitutional: Yes: Well Nourished Eyes: Yes: WNL HENT: Yes: Atraumatic, Normocephalic Neck: Yes: WNL Respiratory: Yes: Regular Musculoskeletal: Yes: WNL Extremities: Yes: WNL Neurological: Yes: Alert (knows name, month, place, does not know year), Cran Nerves II-XII Intact ...Motor Strength: WNL Labs: CBC, BMP 12/18/16 06:00 Problem List - Problems (1) Altered mental state Code(s): R41.82 - ALTERED MENTAL STATUS, UNSPECIFIED Qualifiers: Altered mental status type: unspecified Qualified Code(s): R41.82 - Altered mental status, unspecified Assessment/Plan 71 year old woman, history of depression, presents to hospital with increasing confusion. The patient's daughter is at bedside and provides history. She reports several weeks of confusion and two days ago was unaware of where her apartment is. Her daughter also reports decreased appetite and vomiting prior to admission. Since admission slight improvement but still remains confused MRI attempted yesterday, patient unable to tolerate. Mental status awake, alert, oriented to name, place, month, not year can follow two step commands Recommend MRI brain without contrast EEG Dementia lab workup Will follow
--- NOTE | 2016-12-20 12:47 | EKG ---
Test Reason : Blood Pressure : / mmHG Vent. Rate : 097 BPM Atrial Rate : 097 BPM P-R Int : 134 ms QRS Dur : 136 ms QT Int : 378 ms P-R-T Axes : 000 -33 008 degrees QTc Int : 480 ms NORMAL SINUS RHYTHM LEFT AXIS DEVIATION RIGHT BUNDLE BRANCH BLOCK MODERATE VOLTAGE CRITERIA FOR LVH, MAY BE NORMAL VARIANT ABNORMAL ECG WHEN COMPARED WITH ECG OF 01-APR-2016 22:28, NO SIGNIFICANT CHANGE WAS FOUND Confirmed by AMY KRISHNAMURTHY, MANDA ([id number]) on 12/20/2016 12:46:57 PM Referred By: Confirmed By:MANDA REYES MD
[2016-12-20] MEDS ORDERED: LORazepam 0.5 MG TABLET PO ONE (14:30)
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
--- NOTE | 2016-12-20 16:07 | PN ---
Teaching Attending Note Name of Resident: Dano Clark ATTENDING PHYSICIAN STATEMENT I saw and evaluated the patient. I reviewed the resident's note and discussed the case with the resident. I agree with the resident's findings and plan as documented. SUBJECTIVE: Patient continues to be confused, daughter at bedside, would like to go home. OBJECTIVE: Vital Signs Temperature 98.8 F 12/20/16 10:00 Pulse Rate 94 H 12/20/16 10:00 Respiratory Rate 20 12/20/16 10:00 Blood Pressure 132/71 12/20/16 10:00 O2 Sat by Pulse Oximetry (%) 96 12/20/16 09:00 GENERAL: The patient is awake, alert, and disoriented x 2 , place and time but in no acute distress. HEAD: Normal with no signs of trauma. EYES: PERRL, extraocular movements intact, sclera anicteric, conjunctiva clear. ENT: Ears normal, nares patent, oropharynx clear without exudates, moist mucous membranes. NECK: Trachea midline, full range of motion, supple. LUNGS: Breath sounds equal, clear to auscultation bilaterally, no wheezes, no crackles, no accessory muscle use. HEART: Regular rate and rhythm, S1, S2 positive, DARCIE 2/6 , no rub or gallop. ABDOMEN: Soft, nontender, nondistended, normoactive bowel sounds, no guarding, no rebound, no hepatosplenomegaly, no masses. EXTREMITIES: 2+ pulses, warm, well-perfused, no edema. NEUROLOGICAL: Cranial nerves II through XII grossly intact. Normal speech, gait is normal PSYCH: Normal mood, normal affect. SKIN: Warm, dry, normal turgor, no rashes or lesions noted CBCD WBC 4.2 K/mm3 (4.0-10.0) D 12/17/16 17:50 RBC 5.18 M/mm3 (3.60-5.2) 12/17/16 17:50 Hgb 15.8 GM/dL (10.7-15.3) H 12/17/16 17:50 Hct 47.9 % (32.4-45.2) H 12/17/16 17:50 MCV 92.5 fl (80-96) 12/17/16 17:50 MCHC 33.0 g/dl (32.0-36.0) 12/17/16 17:50 RDW 14.1 % (11.6-15.6) 12/17/16 17:50 Plt Count 325 K/MM3 (134-434) 12/17/16 17:50 MPV 8.0 fl (7.5-11.1) 12/17/16 17:50 CMP Sodium 141 mmol/L (136-145) 12/18/16 06:00 Potassium 3.8 mmol/L (3.5-5.1) 12/18/16 06:00 Chloride 101 mmol/L (98-107) 12/18/16 06:00 Carbon Dioxide 30 mmol/L (21-32) 12/18/16 06:00 Anion Gap 10 (8-16) 12/18/16 06:00 BUN 16 mg/dL (7-18) 12/18/16 06:00 Creatinine 0.8 mg/dL (0.55-1.02) 12/18/16 06:00 Creat Clearance w eGFR > 60 (>60) 12/17/16 17:50 Random Glucose 128 mg/dL (74-106) H 12/18/16 06:00 Calcium 9.9 mg/dL (8.5-10.1) 12/18/16 06:00 Total Bilirubin 0.6 mg/dL (0.2-1.0) D 12/17/16 17:50 AST 17 U/L (15-37) D 12/17/16 17:50 ALT 21 U/L (12-78) D 12/17/16 17:50 Alkaline Phosphatase 65 U/L (45-117) 12/17/16 17:50 Total Protein 7.7 g/dl (6.4-8.2) 12/17/16 17:50 Albumin 3.7 g/dl (3.4-5.0) 12/17/16 17:50 CARDIAC ENZYMES Creatine Kinase 56 IU/L (26-192) 12/17/16 17:50 Troponin I < 0.02 ng/ml (0.00-0.05) 12/17/16 17:50 Current Medications Generic Name Dose Route Start Last Admin Trade Name Freq PRN Reason Stop Dose Admin Acetaminophen 650 mg 12/18/16 18:34 12/20/16 11:10 Tylenol - PO 650 mg Q4H PRN Administration FEVER OR PAIN Albuterol Sulfate 2 puff 12/17/16 23:45 Ventolin Hfa Inhaler - IH Q6H PRN Amlodipine Besylate 10 mg 12/18/16 22:00 12/19/16 22:23 Norvasc - PO 10 mg HS IVANIA Administration Aspirin 81 mg 12/19/16 10:00 12/19/16 10:00 Asa - PO 81 mg Q2D IVANIA Administration Fluticasone Propionate 1 spray 12/18/16 10:00 12/20/16 11:10 Flonase - NS 1 spray DAILY IVANIA Administration Fluticasone Propionate 2 spray 12/18/16 10:00 12/20/16 10:00 Flonase - NS 2 spray DAILY IVANIA Administration Glipizide 5 mg 12/18/16 07:00 12/20/16 06:43 Glucotrol Xl - PO 5 mg DAILY@0700 IVANIA Administration HCTZ/Losartan Potassium 1 tab 12/18/16 10:00 12/20/16 11:09 Hyzaar - PO 1 tab DAILY IVANIA Administration Insulin Aspart 1 vial 12/18/16 07:00 12/20/16 12:00 Novolog Vial Sliding Scale - SQ Not Given ACHS [facility] Protocol Metformin HCl 500 mg 12/18/16 07:00 12/20/16 06:43 Glucophage Xr - PO 500 mg AM IVANIA Administration Non-Formulary Medication 4 gm 12/18/16 10:00 Ipratropium/Albuterol Sulfate [Combivent Respimat Inhal [place]] IH BID [facility] Pantoprazole Sodium 40 mg 12/18/16 10:00 12/20/16 11:08 Protonix - PO 40 mg DAILY IVANIA Administration Paroxetine HCl 10 mg 12/18/16 22:00 12/19/16 22:23 Paxil Oral Suspension - PO 10 mg HS IVANIA Administration Ranolazine 500 mg 12/18/16 10:00 12/20/16 11:09 Ranexa - PO 500 mg DAILY IVANIA Administration Fluticasone/Salmeterol 1 puff 12/18/16 10:00 12/20/16 11:07 Advair 100mcg/50mcg - IH 1 puff BID IVANIA Administration Simethicone 80 mg 12/17/16 23:36 12/20/16 04:11 Mylicon - PO 80 mg DAILY PRN Administration DYSPEPSIA Medication Instructions Recorded Amlodipine Besylate [Norvasc -] 10 mg PO HS 04/30/15 Aspirin [ASA -] 81 mg PO Q2D 04/30/15 Glipizide [Glipizide ER] 5 mg PO DAILY 04/30/15 Metformin HCl [Metformin HCl ER] 500 mg PO DAILY 04/30/15 Metoprolol Tartrate 100 mg PO DAILY 04/30/15 Morphine Sulfate 30 mg PO DAILY 04/30/15 Multivitamins [Multivit ([facility] 1 tab PO DAILY 04/30/15 Formulary)] Omeprazole [Prilosec (RX)] 40 mg PO DAILY 04/30/15 Oxycodone HCl/Acetaminophen 1 tab PO Q6H PRN 04/30/15 [Percocet 7.5-325 mg Tablet] Losartan/Hydrochlorothiazide 1 each PO DAILY #0 tablet 05/05/15 [Hyzaar 50-12.5 Tablet] Albuterol Sulfate Inhaler - 2 inh PO Q6H 04/01/16 [Ventolin Hfa Inhaler -] Fluticasone Prop 0.05% Nasal 1 - 2 spray NS DAILY 04/01/16 [Flonase -] Ipratropium/Albuterol Sulfate 4 gm IH BID 04/01/16 [Combivent Respimat Inhal [place]] Paroxetine HCl [Paxil] 10 mg PO HS 04/01/16 Ranolazine [Ranexa -] 500 mg PO DAILY 04/01/16 Salmeterol/Fluticasone [Advair 1 inh PO BID 04/01/16 100Mcg/50Mcg -] Simethicone [Mylicon -] 80 mg PO DAILY PRN 04/01/16 Lipase/Protease/Amylase [Creon Dr 1 each PO TID 12/17/16 36,000 Units Capsule] MRI of the brain without intravenous contrast A noncontrast MRI of the brain was performed with multiplanar T1 and T2-weighted images obtained. Compared to prior CT scan of the head dated 12/17/2016 Motion artifacts are limiting this exam. There remains moderate atrophy, ventricular dilatation and periventricular chronic microvascular ischemic changes. A left anterior periventricular small focal old infarct that appears to be involving superior aspect of the left caudate head. Another tiny left periventricular likely late subacute lacunar infarct is present. No mass lesion, acute infarct or intracranial hemorrhage is seen. There is no shift of the midline structures. The craniocervical junction appears unremarkable. Flow voids are present within the central intracranial arterial circulation. Mild mucosal thickening in the ethmoid air cells. No suspicious bone marrow abnormal signal is identified. IMPRESSION: Moderate atrophy and chronic microvascular ischemic changes. Left anterior periventricular old focal infarct likely involving the left caudate head. Another tiny left periventricular likely late subacute/chronic lacunar infarct is present. No mass lesion, gross acute infarct or intracranial hemorrhage is seen. Correlate clinically for follow-up. Cranial CT without contrast :Chronic left basal ganglia infarct (involving the head of the caudate nucleus). Mild to moderate periventricular and subcortical chronic microvascular ischemic changes. No gross mass lesion is identified. No extra axial fluid collections. The ventricles and cisterns appear unremarkable. Impression: No CT evidence of acute intracranial pathology. Chronic findings as discussed. ASSESSMENT/PLAN: This patient is a 71 yo female with a PMHx of depression with AMS for the past 3 days. was brought in for further w/u by her daughter. # AMS- due to most likely to progressive/worsening dementia. Carotid doppler negative. MRI result as above; Moderate atrophy with microvascular ischemic changes. Left anterior periventricular old focal infarct likely involving left caudate head. No mass lesion or hemorrhage. continue to Avoid narcotics (taking percocet at home), B12 Levels within normal limits , Neurology Evaluation ppreciated. Discussed with neurologist regarding MRI of brain without contrast not done yet ,Neurologist will add mild dose of ativan for the patient to tolerate the test. EEG as per neurology , Dementia w/u so far negative, Psych appreciated . # HTN stable Continue home meds # Hx of COPD- Stable, Chronic smoker , Nebulizers PRN # T2DM , continue metformin, Diabetic Management, SS with coverage with Sliding scale DVT PPx SCDs
--- NOTE | 2016-12-20 17:38 | CONSULT ---
Consult - text type - Consultation Consultation Note: 71 year old lady admitted with memory impairment t and visual hallucinations. Patient is a poor historian. Sp[ford to patients SOn. She apparantly has been developing cognitive impairment over the past several months. He also reports on going decline of ADLs. No history of any ongoing psych illness or treatment. MS: Alert, oriented to time appears to be aware of her surroundings but confused. She is not displaying any acute agitation or delf damaging behaviour. Visual hallucinations present. NO auditory hallucinations. Cognition Impaired.
[2016-12-20] MEDS ORDERED: risperiDONE 0.5 MG TABLET (FP) PO SCH (22:00)
[2016-12-20] MEDS: amLODIPine BESYLATE 10 MG TABLET (FP) PO SCH (22:33)
[2016-12-21 00:09] LABS: ALDOLASE 12.9 U/L (3.3-10.3)
[2016-12-21] MEDS: SIMETHICONE 80 MG TAB.CHEW (FP) PO PRN (03:08)
[2016-12-21] MEDS: ACETAMINOPHEN 325 MG TABLET (FP) PO PRN ×2 (03:25→16:37)
[2016-12-21 06:35] VITALS: TEMP 98
[2016-12-21] MEDS: INSULIN SLIDING SCALE (NOVOLOG) 1 VIAL SQ SCH ×3 (06:47→17:52)
--- NOTE | 2016-12-21 07:06 | PN ---
Physical Exam: SUBJECTIVE: Patient seen and examined. no complaints. confused, thinks that she is at home. oriented to person and place not time, thinks it is 1920's or 1989's. unsure of month and date. Discussed smoking cessation, able to give hx about her smoking and said she quit few months ago and does not want NRT. denies SOB, chest pain, abdominal pain, headache. OBJECTIVE: Vital Signs Period Temp Pulse Resp BP Sys/Cox Pulse Ox Last 24 Hr 98 F-99 F 93-99 18-20 131-143/71-87 96-98 GENERAL: The patient is awake, alert, in no acute distress. tired appearing. HEAD: Normal with no signs of trauma. EYES: extraocular movements intact, sclera anicteric, conjunctiva clear. No ptosis. NECK: Trachea midline, full range of motion, supple. LUNGS: Breath sounds quiet, poor inspiratory effort. not in respiratory distress , no accessory muscle use. HEART: Regular rate and rhythm, S1, S2 without murmur, rub or gallop. ABDOMEN: Soft, nontender, nondistended EXTREMITIES: warm, well-perfused, no edema. NEUROLOGICAL: Normal speech, gait not observed. PSYCH: Normal mood, normal affect. calm, cooperative. Laboratory Results - last 24 hr 12/19/16 12/19/16 12/19/16 06:00 18:00 18:07 POC Glucometer 100 245 Aldolase 12.9 H BRI Screen Negative 12/20/16 12/20/16 12/20/16 06:39 12:05 17:06 POC Glucometer 152 138 68 Aldolase BRI Screen 12/20/16 22:30 POC Glucometer 122 Aldolase BRI Screen Active Medications Generic Name Dose Route Start Last Admin Trade Name Freq PRN Reason Stop Dose Admin Acetaminophen 650 mg 12/18/16 18:34 12/21/16 03:25 Tylenol - PO 650 mg Q4H PRN Administration FEVER OR PAIN Albuterol Sulfate 2 puff 12/17/16 23:45 Ventolin Hfa Inhaler - IH Q6H PRN Amlodipine Besylate 10 mg 12/18/16 22:00 12/20/16 22:33 Norvasc - PO 10 mg HS IVANIA Administration Aspirin 81 mg 12/19/16 10:00 12/19/16 10:00 Asa - PO 81 mg Q2D IVANIA Administration Fluticasone Propionate 1 spray 12/18/16 10:00 12/20/16 11:10 Flonase - NS 1 spray DAILY IVANIA Administration Fluticasone Propionate 2 spray 12/18/16 10:00 12/20/16 10:00 Flonase - NS 2 spray DAILY IVANIA Administration Glipizide 5 mg 12/18/16 07:00 12/20/16 06:43 Glucotrol Xl - PO 5 mg DAILY@0700 IVANIA Administration HCTZ/Losartan Potassium 1 tab 12/18/16 10:00 12/20/16 11:09 Hyzaar - PO 1 tab DAILY IVANIA Administration Insulin Aspart 1 vial 12/18/16 07:00 12/21/16 06:47 Novolog Vial Sliding Scale - SQ Not Given ACHS [facility] Protocol Metformin HCl 500 mg 12/18/16 07:00 12/21/16 06:47 Glucophage Xr - PO 500 mg AM IVANIA Administration Non-Formulary Medication 4 gm 12/18/16 10:00 Ipratropium/Albuterol Sulfate [Combivent Respimat Inhal [place]] IH BID IVANIA Pantoprazole Sodium 40 mg 12/18/16 10:00 12/20/16 11:08 Protonix - PO 40 mg DAILY IVANIA Administration Ranolazine 500 mg 12/18/16 10:00 12/20/16 11:09 Ranexa - PO 500 mg DAILY IVANIA Administration Risperidone 0.5 mg 12/20/16 22:00 12/20/16 22:33 Risperdal - PO 0.5 mg HS IVANIA Administration Fluticasone/Salmeterol 1 puff 12/18/16 10:00 12/20/16 22:56 Advair 100mcg/50mcg - IH 1 puff BID IVANIA Administration Simethicone 80 mg 12/17/16 23:36 12/21/16 03:08 Mylicon - PO 80 mg DAILY PRN Administration DYSPEPSIA ASSESSMENT/PLAN: 71 yr old woman with RA, hx of TIA, HTN, Ascending aortic aneurysm (4.5 cm), NIDD Type 2, Depression, GI Bleed brought in by daughter for AMS and confusion. Discussed MRI and lab findings with daughter, she will take her mother home and f/u with PCP and Dr. Leonard as outpatient for furthre evaluation. #Memory impairment, likley dementia from chronic microvascular ischemic changes and left basal ganglia infarct seen on CT - r/o reversible causes: RPR neg, vit B wnl, u/a without signs of infection - Avoid narcotics (taking percocet at home) - MRI without sana showing moderate atrophy, chronic microvascular changes and old infarcts, no acute infarct or hemorrhage - patient will need further evaluation of memory impairment and ability to complete ADLs as outpatient #DM - controlled - NISS - metformin xr 500mg po AM - glipizide 5mg daily #HTN - controlled - continue home medications #COPD/Chronic smoker - Nebulizers PRN - will provide cessation information upon discharge, currently does not want NRT #Depression - paxil 10mg po - dc'ed y Dr. Wills, started on risperdal 0.5mg HS #DVT - SCDs Visit type - Emergency Visit Emergency Visit: No - New Patient This patient is new to me today: No - Critical Care Critical Care patient: No - Discharge Referral Referred to [facility] Med P.C.: No
[2016-12-21] MEDS ORDERED: PT OWN MED DRAWER 7, Y5N ONE (11:23)
[2016-12-21] MEDS: FLUTICASONE/SALMETEROL 100 MCG/50 MCG DISKUS IH SCH (11:51)
[2016-12-21] MEDS: ASPIRIN 81 MG CHEWABLE TABLETS PO SCH (11:51)
[2016-12-21] MEDS: glipiZIDE-XL 5 MG TAB.ER.24 PO SCH (11:51)
[2016-12-21] MEDS: FLUTICASONE PROP 0.05% 16 GM NASAL SPRAY NS SCH ×2 (11:52)
[2016-12-21] MEDS: LOSARTAN 50MG/HCTZ 12.5MG 1 TAB (FP) PO SCH (11:52)
[2016-12-21] MEDS: RANOLAZINE E.R. 500 MG TABLET (FP) PO SCH (11:53)
[2016-12-21] MEDS: PANTOPRAZOLE 40 MG TABLET (FP) PO SCH (11:53)
--- NOTE | 2016-12-21 14:08 | PN ---
Progress Note, Physician History of Present Illness: 71 year old woman, history of depression, presents to hospital with increasing confusion. The patient's daughter is at bedside and provides history. She reports several weeks of confusion and two days ago was unaware of where her apartment is. Her daughter also reports decreased appetite and vomiting prior to admission. Since admission slight improvement but still remains confused MRI brain moderate atrophy no acute changes EEG slowing - Current Medication List Current Medications: Active Medications Acetaminophen (Tylenol -) 650 mg PO Q4H PRN PRN Reason: FEVER OR PAIN Last Admin: 12/21/16 03:25 Dose: 650 mg Albuterol Sulfate (Ventolin Hfa Inhaler -) 2 puff IH Q6H PRN Amlodipine Besylate (Norvasc -) 10 mg PO HS [facility] Last Admin: 12/20/16 22:33 Dose: 10 mg Aspirin (Asa -) 81 mg PO Q2D [facility] Last Admin: 12/21/16 11:51 Dose: 81 mg Fluticasone Propionate (Flonase -) 1 spray NS DAILY [facility] Last Admin: 12/21/16 11:52 Dose: 1 spray Fluticasone Propionate (Flonase -) 2 spray NS DAILY [facility] Last Admin: 12/21/16 11:52 Dose: Not Given Glipizide (Glucotrol Xl -) 5 mg PO DAILY@0700 [facility] Last Admin: 12/21/16 11:51 Dose: 5 mg HCTZ/Losartan Potassium (Hyzaar -) 1 tab PO DAILY [facility] Last Admin: 12/21/16 11:52 Dose: 1 tab Insulin Aspart (Novolog Vial Sliding Scale -) 1 vial SQ ACHS [facility] PRN Reason: Protocol Last Admin: 12/21/16 14:04 Dose: Not Given Metformin HCl (Glucophage Xr -) 500 mg PO AM [facility] Last Admin: 12/21/16 06:47 Dose: 500 mg Non-Formulary Medication (Ipratropium/Albuterol Sulfate [Combivent Respimat Inhal [place]]) 4 gm IH BID [facility] Pantoprazole Sodium (Protonix -) 40 mg PO DAILY [facility] Last Admin: 12/21/16 11:53 Dose: 40 mg Ranolazine (Ranexa -) 500 mg PO DAILY [facility] Last Admin: 12/21/16 11:53 Dose: 500 mg Risperidone (Risperdal -) 0.5 mg PO HS [facility] Last Admin: 12/20/16 22:33 Dose: 0.5 mg Fluticasone/Salmeterol (Advair 100mcg/50mcg -) 1 puff IH BID IVANIA Last Admin: 12/21/16 11:51 Dose: 1 puff Simethicone (Mylicon -) 80 mg PO DAILY PRN PRN Reason: DYSPEPSIA Last Admin: 12/21/16 03:08 Dose: 80 mg - Objective Vital Signs: Vital Signs Temperature 98 F 12/21/16 06:00 Pulse Rate 96 H 12/21/16 06:00 Respiratory Rate 20 12/21/16 06:00 Blood Pressure 131/76 12/21/16 06:00 O2 Sat by Pulse Oximetry (%) 98 12/20/16 21:00 Constitutional: Yes: No Distress Eyes: Yes: EOM Intact HENT: Yes: Atraumatic, Normocephalic Neurological: Yes: Other (Ms awake, alert, knows name and age [id number] EOMI, visua louie full, face symmetric Motor 5/5x4) Labs: CBC, BMP 12/18/16 06:00 Problem List - Problems (1) Altered mental state Code(s): R41.82 - ALTERED MENTAL STATUS, UNSPECIFIED Qualifiers: Altered mental status type: unspecified Qualified Code(s): R41.82 - Altered mental status, unspecified Assessment/Plan 71 year old woman, history of depression, presents to hospital with increasing confusion. The patient's daughter is at bedside and provides history. She reports several weeks of confusion and two days ago was unaware of where her apartment is. Her daughter also reports decreased appetite and vomiting prior to admission. Since admission slight improvement but still remains confused Mental status awake, alert, oriented to name, place, month, not year can follow two step commands MRI brain without contrast- generalized atrophy EEG- slowing Follow up with neuro as outpatient for continued dementia assessment
[2016-12-21 14:24] VITALS: BP 134/74; PULSE 100
--- NOTE | 2016-12-21 15:12 | PN ---
Teaching Attending Note Name of Resident: Dano Clark ATTENDING PHYSICIAN STATEMENT I saw and evaluated the patient. I reviewed the resident's note and discussed the case with the resident. I agree with the resident's findings and plan as documented. SUBJECTIVE: Patient is still confused with no acute distress, would like to go home. OBJECTIVE: Vital Signs Temperature 98 F 12/21/16 14:21 Pulse Rate 100 H 12/21/16 14:21 Respiratory Rate 20 12/21/16 14:21 Blood Pressure 134/74 12/21/16 14:21 O2 Sat by Pulse Oximetry (%) 98 12/20/16 21:00 GENERAL: The patient is awake, alert, and disoriented x 2 , place and time but in no acute distress. HEAD: Normal with no signs of trauma. EYES: PERRL, extraocular movements intact, sclera anicteric, conjunctiva clear. ENT: Ears normal, nares patent, oropharynx clear without exudates, moist mucous membranes. NECK: Trachea midline, full range of motion, supple. LUNGS: Breath sounds equal, clear to auscultation bilaterally, no wheezes, no crackles, no accessory muscle use. HEART: Regular rate and rhythm, S1, S2 positive, DARCIE 2/6 , no rub or gallop. ABDOMEN: Soft, nontender, nondistended, normoactive bowel sounds, no guarding, no rebound, no hepatosplenomegaly, no masses. EXTREMITIES: 2+ pulses, warm, well-perfused, no edema. NEUROLOGICAL: Cranial nerves II through XII grossly intact. Normal speech, gait is normal PSYCH: Normal mood, normal affect. SKIN: Warm, dry, normal turgor, no rashes or lesions noted CBCD WBC 4.2 K/mm3 (4.0-10.0) D 12/17/16 17:50 RBC 5.18 M/mm3 (3.60-5.2) 12/17/16 17:50 Hgb 15.8 GM/dL (10.7-15.3) H 12/17/16 17:50 Hct 47.9 % (32.4-45.2) H 12/17/16 17:50 MCV 92.5 fl (80-96) 12/17/16 17:50 MCHC 33.0 g/dl (32.0-36.0) 12/17/16 17:50 RDW 14.1 % (11.6-15.6) 12/17/16 17:50 Plt Count 325 K/MM3 (134-434) 12/17/16 17:50 MPV 8.0 fl (7.5-11.1) 12/17/16 17:50 CMP Sodium 141 mmol/L (136-145) 12/18/16 06:00 Potassium 3.8 mmol/L (3.5-5.1) 12/18/16 06:00 Chloride 101 mmol/L (98-107) 12/18/16 06:00 Carbon Dioxide 30 mmol/L (21-32) 12/18/16 06:00 Anion Gap 10 (8-16) 12/18/16 06:00 BUN 16 mg/dL (7-18) 12/18/16 06:00 Creatinine 0.8 mg/dL (0.55-1.02) 12/18/16 06:00 Creat Clearance w eGFR > 60 (>60) 12/17/16 17:50 Random Glucose 128 mg/dL (74-106) H 12/18/16 06:00 Calcium 9.9 mg/dL (8.5-10.1) 12/18/16 06:00 Total Bilirubin 0.6 mg/dL (0.2-1.0) D 12/17/16 17:50 AST 17 U/L (15-37) D 12/17/16 17:50 ALT 21 U/L (12-78) D 12/17/16 17:50 Alkaline Phosphatase 65 U/L (45-117) 12/17/16 17:50 Total Protein 7.7 g/dl (6.4-8.2) 12/17/16 17:50 Albumin 3.7 g/dl (3.4-5.0) 12/17/16 17:50 CARDIAC ENZYMES Creatine Kinase 56 IU/L (26-192) 12/17/16 17:50 Troponin I < 0.02 ng/ml (0.00-0.05) 12/17/16 17:50 Medication Instructions Recorded Amlodipine Besylate [Norvasc -] 10 mg PO HS 04/30/15 Aspirin [ASA -] 81 mg PO Q2D 04/30/15 Glipizide [Glipizide ER] 5 mg PO DAILY 04/30/15 Metformin HCl [Metformin HCl ER] 500 mg PO DAILY 04/30/15 Metoprolol Tartrate 100 mg PO DAILY 04/30/15 Morphine Sulfate 30 mg PO DAILY 04/30/15 Multivitamins [Multivit ([facility] 1 tab PO DAILY 04/30/15 Formulary)] Omeprazole [Prilosec (RX)] 40 mg PO DAILY 04/30/15 Oxycodone HCl/Acetaminophen 1 tab PO Q6H PRN 04/30/15 [Percocet 7.5-325 mg Tablet] Losartan/Hydrochlorothiazide 1 each PO DAILY #0 tablet 05/05/15 [Hyzaar 50-12.5 Tablet] Albuterol Sulfate Inhaler - 2 inh PO Q6H 04/01/16 [Ventolin Hfa Inhaler -] Fluticasone Prop 0.05% Nasal 1 - 2 spray NS DAILY 04/01/16 [Flonase -] Ipratropium/Albuterol Sulfate 4 gm IH BID 04/01/16 [Combivent Respimat Inhal [place]] Paroxetine HCl [Paxil] 10 mg PO HS 04/01/16 Ranolazine [Ranexa -] 500 mg PO DAILY 04/01/16 Salmeterol/Fluticasone [Advair 1 inh PO BID 04/01/16 100Mcg/50Mcg -] Simethicone [Mylicon -] 80 mg PO DAILY PRN 04/01/16 Lipase/Protease/Amylase [Creon Dr 1 each PO TID 12/17/16 36,000 Units Capsule] MRI of the brain without intravenous contrast A noncontrast MRI of the brain was performed with multiplanar T1 and T2-weighted images obtained. Compared to prior CT scan of the head dated 12/17/2016 Motion artifacts are limiting this exam. There remains moderate atrophy, ventricular dilatation and periventricular chronic microvascular ischemic changes. A left anterior periventricular small focal old infarct that appears to be involving superior aspect of the left caudate head. Another tiny left periventricular likely late subacute lacunar infarct is present. No mass lesion, acute infarct or intracranial hemorrhage is seen. There is no shift of the midline structures. The craniocervical junction appears unremarkable. Flow voids are present within the central intracranial arterial circulation. Mild mucosal thickening in the ethmoid air cells. No suspicious bone marrow abnormal signal is identified. IMPRESSION: Moderate atrophy and chronic microvascular ischemic changes. Left anterior periventricular old focal infarct likely involving the left caudate head. Another tiny left periventricular likely late subacute/chronic lacunar infarct is present. No mass lesion, gross acute infarct or intracranial hemorrhage is seen. Correlate clinically for follow-up. Cranial CT without contrast :Chronic left basal ganglia infarct (involving the head of the caudate nucleus). Mild to moderate periventricular and subcortical chronic microvascular ischemic changes. No gross mass lesion is identified. No extra axial fluid collections. The ventricles and cisterns appear unremarkable. Impression: No CT evidence of acute intracranial pathology. Chronic findings as discussed. ASSESSMENT/PLAN: This patient is a 71 yo female with a PMHx of depression with AMS for the past 3 days. was brought in for further w/u by her daughter. # AMS- due to most likely to progressive/worsening dementia. Further w/u as an outpatient with . Carotid doppler negative. MRI result as above; Moderate atrophy with microvascular ischemic changes. Left anterior periventricular old focal infarct likely involving left caudate head. No mass lesion or hemorrhage. continue to Avoid narcotics (taking percocet at home), B12 Levels within normal limits , Neurology Evaluation ppreciated. Discussed with neurologist regarding MRI of brain without contrast not done yet , Neurologist will add mild dose of ativan for the patient to tolerate the test. EEG as per neurology , Dementia w/u so far negative, Psych appreciated added respiradone for dementia # HTN stable Continue home meds # Hx of COPD- Stable, Chronic smoker , Nebulizers PRN # T2DM , continue metformin, Diabetic Management, SS with coverage with Sliding scale DVT PPx SCDs will discharge patient home
--- NOTE | 2016-12-21 15:33 | DS ---
Physical Exam: SUBJECTIVE: Patient seen and examined. Patient is confused, oriented to person and place. No complaints. Daughter will follow-up as outpatient with PCP and Dr. Leonard for further assessment. OBJECTIVE: Vital Signs Period Temp Pulse Resp BP Sys/Cox Pulse Ox Last 24 Hr 98 F-99 F 93-100 18-20 131-143/74-87 98 PHYSICAL EXAM GENERAL: The patient is awake, alert, in no acute distress. tired appearing. HEAD: Normal with no signs of trauma. EYES: extraocular movements intact, sclera anicteric, conjunctiva clear. No ptosis. NECK: Trachea midline, full range of motion, supple. LUNGS: Breath sounds quiet, poor inspiratory effort. not in respiratory distress , no accessory muscle use. HEART: Regular rate and rhythm, S1, S2 without murmur, rub or gallop. ABDOMEN: Soft, nontender, nondistended EXTREMITIES: warm, well-perfused, no edema. NEUROLOGICAL: Normal speech, gait not observed. PSYCH: Normal mood, normal affect. calm, cooperative. LABS Microbiology 12/18/16 06:00 Urine - Urine Clean Catch Urine Culture - Final NO GROWTH OBTAINED Laboratory Tests 12/18/16 12/18/16 12/19/16 06:00 13:45 06:00 ESR > 130 H Vitamin B12 1508 H Urine Appearance Clear Urine Nitrite Negative Ur Leukocyte Esterase Negative Urine WBC 9 Ur Epithelial Cells Rare Urine Bacteria Moderate Hyaline Casts 8 Granular Casts 17 12/19/16 12/19/16 06:00 06:00 Prot Electrophoresis Pending Serum Total Protein Pending Albumin Pending Globulin Pending Albumin/Globulin Ratio Pending [id number] Pending [id number] Pending Beta Globulins Pending Gamma Globulins Pending Aldolase 12.9 H Homocysteine Pending ERIBERTO M-Chano Pending BRI Screen Negative RPR Titer Nonreactive Laboratory Results - last 24 hr 12/19/16 06:00 Aldolase 12.9 H BRI Screen Negative 12/21/16 12/21/16 06:46 12:12 POC Glucometer 112 109 IMAGING EEG: This EEG is abnormal due to generalized diffuse slowing of the background, which is suggestive of a diffuse encephalopathy of metabolic, toxic, degenerative or vascular origin. Brain MRI without Rohan: Moderate atrophy and chronic microvascular ischemic changes. Left anterior periventricular old focal infarct likely involving the left caudate head. Another tiny left periventricular likely late subacute/ chronic lacunar infarct is present. No mass lesion, gross acute infarct or intracranial hemorrhage is seen. Correlate clinically for follow-up. Carotid dopplers: Minimal atherosclerotic disease with no evidence of hemodynamically significant stenoses. Hip and pelvis xray: An AP view the pelvis and images of the right hip reveal no sign of fracture, subluxation or bone destruction. The hips appear symmetrical. If symptoms persist or there is decreased range of motion then further imaging and orthopedic consultation may be of help. Head CT without contrast: No definite interval change is identified in comparison to a previous CT exam of 04/30/2015. Chronic left basal ganglia infarct (involving the head of the caudate nucleus). Mild to moderate periventricular and subcortical chronic microvascular ischemic changes. No gross mass lesion is identified. No extra axial fluid collections. The ventricles and cisterns appear unremarkable Chest xray: Since 10/14/2016 at 1649 hours, there is some new increased markings at the right base which could represent some atelectasis or early infiltrate. Again noted is a large heart, unfolded aorta and prominent nicole. Follow-up recommended HOSPITAL COURSE: Date of Admission:12/17/16 - Date of Discharge: 12/21/16 71 yr old woman with RA, TIA, right kidney cyst, HTN, ascending aortic aneurysm (4.5cm), NIDD type 2, depression, and hx of GI bleed was was brought in by her daughter for AMS for past three days. Patient had been experiencing problems with her memory for the past year but acutely in the past three days she appeared more confused, attempting to enter her neighbor's apartment and as noted by her neighbor's she was unsteady on her feet. She was evaluated by Dr. Leonadr and Dr. Jj. Imaging did not reveal any acute pathology, dementia lab work for syphilis, vitamin B12 deficiency, or UTI was unremarkable and listed above. Her agitation and confusion improved during this admission and she was stable for follow-up as outpatient for continued dementia assessment. She was afebrile, without leucocytosis and asymptomatic for UTI and urine culture was negative for growth. During assessment with psychiatrist Dr. Wills , she was aware of her surroundings but confused, not displaying any acute agitations or self-damaging behavior. Visual hallucinations were present but no auditory hallucinations. She was started on risperdal 0.5 mg daily. Follow up is recommended for pending labs, elevated ESR and further evaluation of cognitive impairment. Home medications were resumed expect for paxil. Minutes to complete discharge: 45 Discharge Summary Reason For Visit: AMS Current Active Problems Altered mental state (Acute) CVA (cerebral vascular accident) (Acute) Chest pain (Acute) Headache (Acute) Condition: Stable - Instructions Diet, Activity, Other Instructions: Resume your home medications. Dr. Wills started you on Risperdal 0.5mg, take one tablet every night until you see him in his office. Follow-up with Dr. Leonard and Dr. Sosa in one week for further evaluation and management of your care. If you develop chest pain, headache, difficulty breathing or develop any new symptoms return to the hospital. Referrals: Ramona Hill MD [Primary Care Provider] - Rashaun Leonard MD [Staff Physician] - 1 Week Nick Wills MD [Staff Physician] - Disposition: HOME - Home Medications Comprehensive Discharge Medication List: Ambulatory Orders Amlodipine Besylate [Norvasc -] 10 mg PO HS 04/30/15 Aspirin [ASA -] 81 mg PO Q2D 04/30/15 Glipizide [Glipizide ER] 5 mg PO DAILY 04/30/15 Metformin HCl [Metformin HCl ER] 500 mg PO DAILY 04/30/15 Metoprolol Tartrate 100 mg PO DAILY 04/30/15 Morphine Sulfate 30 mg PO DAILY 04/30/15 Multivitamins [Multivit ([facility] Formulary)] 1 tab PO DAILY 04/30/15 Omeprazole [Prilosec (RX)] 40 mg PO DAILY 04/30/15 Oxycodone HCl/Acetaminophen [Percocet 7.5-325 mg Tablet] 1 tab PO Q6H PRN Losartan/Hydrochlorothiazide [Hyzaar 50-12.5 Tablet] 1 each PO DAILY #0 tablet 05/05/15 Albuterol Sulfate Inhaler - [Ventolin HFA Inhaler -] 2 inh PO Q6H 04/01/16 Fluticasone Prop 0.05% Nasal [Flonase -] 1 - 2 spray NS DAILY 04/01/16 Ipratropium/Albuterol Sulfate [Combivent Respimat Inhal [place]] 4 gm IH BID 04/01 Paroxetine HCl [Paxil] 10 mg PO HS 04/01/16 Ranolazine [Ranexa -] 500 mg PO DAILY 04/01/16 Salmeterol/Fluticasone [Advair 100Mcg/50Mcg -] 1 inh PO BID 04/01/16 Simethicone [Mylicon -] 80 mg PO DAILY PRN 04/01/16 Lipase/Protease/Amylase [[place] 36,000 Units Capsule] 1 each PO TID 12/17/16 Risperidone [Risperdal -] 0.5 mg PO HS #20 tablet 12/21/16 This patient is new to me today: No Emergency Visit: No Critical Care patient: No - Discharge Referral Referred to [facility] No
[2016-12-22 00:07] LABS: A/G RATIO 0.9 (0.7-1.7); GLOBULIN, TOTAL 3.2 g/dL (2.2-3.9); HOMOCYSTEINE (CARDIO) 8.4 umol/L (0.0-15.0); M-SPIKE Not Observed g/dL (Not Observed); TOTAL PROTEIN 6.2 g/dL (6.0-8.5)
== END 2016-12-21 18:56 | disposition home or self-care (01) | DRG 884 ==
LOC: JER 15:52 → JERBED 22:27 → J7W 12-18 00:53
PROVIDERS: ADMIT Internal Medicine; ATTEND Internal Medicine
PROC: 4A00X4Z Measurement of Central Nervous Electrical Activity, External Approach (ICD-10-PCS; principal; 2016-12-20)
DX: F01.51 Vascular dementia, unspecified severity, with behavioral disturbance (principal); G93.40 Encephalopathy, unspecified; R41.82 Altered mental status, unspecified; M06.9 Rheumatoid arthritis, unspecified; J44.9 Chronic obstructive pulmonary disease, unspecified; I10 Essential (primary) hypertension; I71.4 Abdominal aortic aneurysm, without rupture; R44.1 Visual hallucinations; Z72.0 Tobacco use; E11.9 Type 2 diabetes mellitus without complications; Z86.73 Personal history of transient ischemic attack (TIA), and cerebral infarction without residual deficits; F32.9 Major depressive disorder, single episode, unspecified; R63.4 Abnormal weight loss; Z68.23 Body mass index [BMI] 23.0-23.9, adult; Z79.84 Long term (current) use of oral hypoglycemic drugs
CPT/HCPCS: 36415; 70450-TC; 70551-TC; 71010-TC; 73523-TC; 80048; 80053; 81003; 81015; 82085; 82140; 82550; 82607; 83090; 83605; 84155; 84165; 84484; 85025; 85651; 86038; 86593; 87086; 93005; 93010; 93880-TC; 95816; 97116-GP; 97161-GP; 99284-25

== ENCOUNTER 2017-06-13 16:54 | Inpatient (IN) | payer OTHER ==
[2017-06-13 17:15] VITALS: BMI 25.2
[2017-06-13] MEDS ORDERED: ALBUTEROL SO4 2.5/IPRATROPIUM 0.5 INH SOL 3 ML VIAL.NEB. NEB SCH (18:00)
[2017-06-13] MEDS ORDERED: ALBUTEROL SO4 2.5/IPRATROPIUM 0.5 INH SOL 3 ML VIAL.NEB. NEB ONE (18:03)
[2017-06-13] MEDS ORDERED: methylPREDNISolone NA SUCC 125 MG/2 ML VIAL IVPB ONE (18:21)
--- NOTE | 2017-06-13 18:25 | PDOC ---
Attending Attestation - Resident Resident Name: Lawrence Herrera - HPI HPI: 06/13/17 18:24 71-year-old female comes in respiratory distress. Pulse ox of 71%, using accessory muscles with a junky productive cough. According to the family she's had several days of this. PCPs Dr. Hill, entry analyst, Dr. Key and language assistant is Dr. Neto Valdez. Patient complains of chest pain, shortness of breath. - Physicial Exam PE: 06/13/17 18:25 71-year-old female, slightly diaphoretic. Productive cough, using accessory muscles with scattered wheezing. HEENT within normal limits Neck minimal JVD Lungs diffuse wheezing bilaterally cvs [id number] Abdomen protuberant, soft, nontender, no guarding Extremities b/l extremity pitting edema neuro alert,conversant - Medical Decision Making 06/13/17 18:28 71-year-old female with history of COPD, NIDDM, TIAs, hypertension, AAA 4.5 cm and COPD presents in moderate respiratory distress plan resp tx,steroids,cardiac ,ekg,admission,cbc,comp IMp copd excaerbation, r/o heart failure,pneumonia
[2017-06-13 18:33] LABS: EOSINOPHIL 2.6 % (0-4.5); MCH 31.1 pg (25.7-33.7); MCHC 32.2 g/dl (32.0-36.0); MEAN CELL VOLUME 96.4 fl (80-96); MEAN PLT VOLUME 8.3 fl (7.5-11.1); NEUTROPHILS 65.4 % (42.8-82.8); PLATELET COUNT 226 K/MM3 (134-434); RDW 15.3 % (11.6-15.6); WHITE BLOOD COUNT 4.9 K/mm3 (4.0-10.0)
[2017-06-13 19:08] LABS: ALBUMIN 3.4 g/dl (3.4-5.0); ALK PHOS 74 U/L (45-117); ANION GAP 5 (8-16); BILIRUBIN,TOTAL 0.4 mg/dL (0.2-1.0); CALCIUM 10.6 mg/dL (8.5-10.1); CO2 33 mmol/L (21-32); CREATININE 0.9 mg/dL (0.55-1.02); GLUCOSE,RANDOM 58 mg/dL (74-106); SGOT/AST 16 U/L (15-37); SGPT/ALT 13 U/L (12-78); TOT PROT 6.9 g/dl (6.4-8.2)
[2017-06-13 19:09] LABS: TROPONIN I < 0.02 ng/ml (0.00-0.05)
[2017-06-13 19:20] LABS: VENOUS BLOOD GAS HCO3 32.4 meq/L (19-25); VENOUS PH 7.33 (7.32-7.42)
[2017-06-13] MEDS ORDERED: methylPREDNISolone NA SUCC 125 MG/2 ML VIAL ONE (19:27)
[2017-06-13 19:30] LABS: ARTERIAL BLOOD GAS BASE EXCESS 3.9 meq/l (-2-2); ARTERIAL BLOOD GAS HCO3 30.9 meq/L (22-26); ARTERIAL BLOOD GAS PO2 52.4 mmHg (70-100); ARTERIAL BLOOD GAS pH 7.34 (7.35-7.45)
[2017-06-13 19:33] LABS: ALLENS TEST POSITIVE; ART PUNCT SITE LEFT RADIAL; ARTERIAL BLD GAS O2 SATURATION 83.8 % (90-98.9); LPM/O2% 2L; PT. ON O2? YES; TYPE OF O2 NASAL
--- NOTE | 2017-06-13 19:38 | PN ---
Teaching Attending Note Name of Resident: Kayla Romo ATTENDING PHYSICIAN STATEMENT I saw and evaluated the patient. I reviewed the resident's note and discussed the case with the resident. I agree with the resident's findings and plan as documented. SUBJECTIVE: 71 yo F with pmhx of TIA, HTN, R. Kidney Cyst, Ascending AA-4.5cm, depression, GIB, DM II, COPD who presented with shortness of breath. States that this is happening one day in duration. Also notes chest pain with deep inspiration only. Notes no chest pressure. Notes increased sputum production. OBJECTIVE: Physical: VS: Vital Signs Period Temp Pulse Resp BP Sys/Cox Pulse Ox Last 24 Hr 99.2 F 85 18 128/76 71 Pulse ox 95% on 2L GEN: NAD, Resting in bed HEENT: NCAT, PERRL CARD: RRR S1, S2 RESP: Diffuse bilateral expiratory wheezing, crackles ABD: BS X4, NTD to palpation EXT: Trace pitting edema, bilateral LE CBCD WBC 4.9 K/mm3 (4.0-10.0) 06/13/17 17:59 RBC 4.47 M/mm3 (3.60-5.2) 06/13/17 17:59 Hgb 13.9 GM/dL (10.7-15.3) D 06/13/17 17:59 Hct 43.1 % (32.4-45.2) 06/13/17 17:59 MCV 96.4 fl (80-96) H 06/13/17 17:59 MCHC 32.2 g/dl (32.0-36.0) 06/13/17 17:59 RDW 15.3 % (11.6-15.6) 06/13/17 17:59 Plt Count 226 K/MM3 (134-434) D 06/13/17 17:59 MPV 8.3 fl (7.5-11.1) 06/13/17 17:59 CMP Sodium 140 mmol/L (136-145) 06/13/17 17:59 Potassium 4.4 mmol/L (3.5-5.1) 06/13/17 17:59 Chloride 102 mmol/L (98-107) 06/13/17 17:59 Carbon Dioxide 33 mmol/L (21-32) H 06/13/17 17:59 Anion Gap 5 (8-16) L 06/13/17 17:59 BUN 17 mg/dL (7-18) 06/13/17 17:59 Creatinine 0.9 mg/dL (0.55-1.02) 06/13/17 17:59 Creat Clearance w eGFR > 60 (>60) 06/13/17 17:59 Random Glucose 58 mg/dL (74-106) L D 06/13/17 17:59 Calcium 10.6 mg/dL (8.5-10.1) H 06/13/17 17:59 Total Bilirubin 0.4 mg/dL (0.2-1.0) D 06/13/17 17:59 AST 16 U/L (15-37) 06/13/17 17:59 ALT 13 U/L (12-78) D 06/13/17 17:59 Alkaline Phosphatase 74 U/L (45-117) 06/13/17 17:59 Total Protein 6.9 g/dl (6.4-8.2) 06/13/17 17:59 Albumin 3.4 g/dl (3.4-5.0) 06/13/17 17:59 CARDIAC ENZYMES Creatine Kinase 50 IU/L (26-192) 06/13/17 18:20 Troponin I ng/ml (0.00-0.05) 06/13/17 18:20 CXR: Vascular congestion EKG: Home Medications Medication Instructions Recorded Amlodipine Besylate [Norvasc -] 10 mg PO HS 04/30/15 Aspirin [ASA -] 81 mg PO Q2D 04/30/15 Glipizide [Glipizide ER] 5 mg PO DAILY 04/30/15 Metformin HCl [Metformin HCl ER] 500 mg PO DAILY 04/30/15 Metoprolol Tartrate 100 mg PO DAILY 04/30/15 Multivitamins [Multivit ([facility] 1 tab PO DAILY 04/30/15 Formulary)] Omeprazole [Prilosec (RX)] 40 mg PO DAILY 04/30/15 Losartan/Hydrochlorothiazide 1 each PO DAILY #0 tablet 05/05/15 [Hyzaar 50-12.5 Tablet] Albuterol Sulfate Inhaler - 2 inh PO Q6H 04/01/16 [Ventolin HFA Inhaler -] Fluticasone Prop 0.05% Nasal 1 - 2 spray NS DAILY 04/01/16 [Flonase -] Ipratropium/Albuterol Sulfate 4 gm IH BID 04/01/16 [Combivent Respimat Inhal [place]] Ranolazine [Ranexa -] 500 mg PO DAILY 04/01/16 Lipase/Protease/Amylase [Creon Dr 1 each PO TID 12/17/16 36,000 Units Capsule] Acetaminophen [Tylenol] 650 mg PO TID PRN 06/13/17 Gabapentin [Neurontin] 300 mg PO DAILY 06/13/17 Polyethylene Glycol 3350 [Miralax 17 gm PO DAILY 06/13/17 (For Daily Use) -] Risperidone [Risperdal] 1 mg PO HS 06/13/17 ASSESSMENT AND PLAN: 71 yo M pmhx of COPD, HTN, HLD, DM II, with shortness of breath who presents with acute exacerbation of COPD 1.) Acute Exacerbation of COPD - Duonebs ATC/PRN - Solumedrol - levaquin - Keep 02 >90% - Can c/w Combivent in am - Pulm. Consult 2.) CHF? - Echo - Trop/EKG - lasix - Strict I/O - Daily Weight - Fluid/Na restrict 3.) DM II - FS Q4H - RAISS 4.) HTN - C/W home meds 5.) Rheumatoid Arthritis - C/W Home meds 5.) Dvt Ppx - Mod risk - Heparin [address] in Med- Sx
--- NOTE | 2017-06-13 19:38 | PDOC ---
History of Present Illness - General Chief Complaint: Chest Pain Stated Complaint: CHEST PAIN Time Seen by Provider: 06/13/17 17:21 - History of Present Illness Initial Comments: 06/13/17 19:24 71 yo F with h/o TIA, HTN, DMII, AAA, and COPD who presents with SOB. Pt. reports increased SOB and wheezing over the last 24 hours. SOB is accompanied with chest pain, and palpatations. Chest pain is pleuritic in nature and aggravated with deep inhalation. Also complains of productive cough with yellow- green sputum, sore throat, and bilateral leg swelling. Per pt. daughter she reports increased confusion. Denies fevers/chills, abdominal pain or GI complaints, urinary complaints, flank pain, or back pain. Currently not on home oxygen, but daughter states that pt. has been sent home with oxygen in the past and she refuses to use home O2 d/t discomfort. Pt. has increased duoneb use over past 24 hours. Continues tobacco use of 1/2 ppd over past 50 years. Currently lives in senior citizen housing alone in apartment. Past History - Past Medical History Allergies/Adverse Reactions: Allergies Allergy/AdvReac Type Severity Reaction Status Date / Time No Known Allergies Allergy Verified 12/17/16 15:54 Home Medications: Ambulatory Orders Amlodipine Besylate [Norvasc -] 10 mg PO HS 04/30/15 Aspirin [ASA -] 81 mg PO Q2D 04/30/15 Glipizide [Glipizide ER] 5 mg PO DAILY 04/30/15 Metformin HCl [Metformin HCl ER] 500 mg PO DAILY 04/30/15 Metoprolol Tartrate 100 mg PO DAILY 04/30/15 Multivitamins [Multivit ([facility] Formulary)] 1 tab PO DAILY 04/30/15 Omeprazole [Prilosec (RX)] 40 mg PO DAILY 04/30/15 Losartan/Hydrochlorothiazide [Hyzaar 50-12.5 Tablet] 1 each PO DAILY #0 tablet 05/05/15 Albuterol Sulfate Inhaler - [Ventolin HFA Inhaler -] 2 inh PO Q6H 04/01/16 Fluticasone Prop 0.05% Nasal [Flonase -] 1 - 2 spray NS DAILY 04/01/16 Ipratropium/Albuterol Sulfate [Combivent Respimat Inhal [place]] 4 gm IH BID 04/01 Ranolazine [Ranexa -] 500 mg PO DAILY 04/01/16 Lipase/Protease/Amylase [Creon Dr 36,000 Units Capsule] 1 each PO TID 12/17/16 Acetaminophen [Tylenol] 650 mg PO TID PRN 06/13/17 Gabapentin [Neurontin] 300 mg PO DAILY 06/13/17 Polyethylene Glycol 3350 [Miralax (For Daily Use) -] 17 gm PO DAILY 06/13/17 Risperidone [Risperdal] 1 mg PO HS 06/13/17 Anemia: No Cardiac Disorders: No CVA: Yes (TIAs) COPD: Yes (PNEUMONIA) CHF: No Dementia: No Diabetes: Yes (NIDDM) GI Disorders: Yes (Rectal bleed 2013) Disorders: No HTN: Yes Hypercholesterolemia: Yes Liver Disease: No Seizures: No Thyroid Disease: No - Surgical History Abdominal Surgery: Yes Appendectomy: No Cardiac Surgery: No Cholecystectomy: Yes GI Surgery: Yes (bleeding ulcers) Lung Surgery: No Neurologic Surgery: No Orthopedic Surgery: Yes (ACL repair) - Psycho/Social/Smoking Cessation Hx Anxiety: No Suicidal Ideation: No Smoking Status: Yes Smoking History: Current every day smoker Have you smoked in the past 12 months: Yes Number of Cigarettes Smoked Daily: 10 If you are a former smoker, when did you quit?: 6 months Information on smoking cessation initiated: No 'Breaking Loose' booklet given: 12/17/14 Hx Alcohol Use: No Drug/Substance Use Hx: No Substance Use Type: None Hx Substance Use Treatment: No Review of Systems - Review of Systems Comments:: 06/13/17 20:14 GENERAL/CONSTITUTIONAL: No fever or chills. No weakness. HEAD, EYES, EARS, NOSE AND THROAT: + sore throat. No change in vision. No ear pain or discharge. CARDIOVASCULAR: + chest pain and shortness of breath RESPIRATORY: + cough, +wheezing. No hemoptysis. GASTROINTESTINAL: No nausea, vomiting, diarrhea or constipation. GENITOURINARY: No dysuria, frequency, or change in urination. MUSCULOSKELETAL: No joint or muscle swelling or pain. No neck or back pain. SKIN: No rash NEUROLOGIC: No headache, vertigo, loss of consciousness, or change in strength/ sensation. ENDOCRINE: No increased thirst. No abnormal weight change HEMATOLOGIC/LYMPHATIC: No anemia, easy bleeding, or history of blood clots. ALLERGIC/IMMUNOLOGIC: No hives or skin allergy. *Physical Exam - Vital Signs Last Vital Signs Temp Pulse Resp BP Pulse Ox 99.2 F 85 18 128/76 71 L 06/13/17 17:12 06/13/17 17:12 06/13/17 17:12 06/13/17 17:12 06/13/17 17:12 - Physical Exam Comments: 06/13/17 20:15 GENERAL: Awake, alert, and fully oriented, in no acute distress HEAD: No signs of trauma, normocephalic, atraumatic EYES: PERRLA, EOMI, sclera anicteric, conjunctiva clear ENT: Auricles normal inspection, hearing grossly normal, nares patent, oropharynx clear without exudates. Moist mucosa NECK: Normal ROM, supple, no lymphadenopathy, JVD, or masses LUNGS: + distress,+ accessory muscle use. Diffuse rales and rhonic present over upper and lower lung louie. HEART: Regular rate and rhythm, normal S1 and S2, no murmurs, rubs or gallops, peripheral pulses normal and equal bilaterally. ABDOMEN: Soft, nontender, normoactive bowel sounds. No guarding, no rebound. No masses EXTREMITIES:+ Pitting edema in BL LE. Normal inspection, Normal range of motion. No clubbing or cyanosis. NEUROLOGICAL: Cranial nerves II through XII grossly intact. Normal speech, normal gait, no focal sensorimotor deficits SKIN: Warm, Dry, normal turgor, no rashes or lesions noted. ED Treatment Course - LABORATORY CBC & Chemistry Diagram: 06/13/17 17:59 06/13/17 17:59 - ADDITIONAL ORDERS Additional order review: Laboratory Results 06/13/17 06/13/17 19:11 17:59 VBG pH 7.33 POC VBG pCO2 63.1 H* POC VBG pO2 37.0 Mixed VBG HCO3 32.4 H Sodium 140 Potassium 4.4 Chloride 102 Carbon Dioxide 33 H Anion Gap 5 L BUN 17 Creatinine 0.9 Creat Clearance w eGFR > 60 Random Glucose 58 L D Calcium 10.6 H Total Bilirubin 0.4 D AST 16 ALT 13 D Alkaline Phosphatase 74 Troponin I < 0.02 Total Protein 6.9 Albumin 3.4 06/13/17 17:59 RBC 4.47 MCV 96.4 H MCHC 32.2 RDW 15.3 MPV 8.3 Neutrophils % 65.4 D Lymphocytes % 26.4 D Monocytes % 4.6 Eosinophils % 2.6 D Basophils % 1.0 - RADIOLOGY Radiology Studies Ordered: Category Date Time Status CHEST X-RAY PORTABLE* [RAD] Stat Radiology 06/13/17 17:51 Taken Medical Decision Making - Medical Decision Making 06/13/17 20:17 71 yo female with h/o TIA, HTN, DMII, AAA, and COPD who presents in respiratory distress with with pleuritic chest pain and O2 saturation 71 % RA and accessory muscle use. Pt. afebrile with 0/4 SIRS criteria on presentation. Pt. with productive cough and increased confusion over 24 hours. Most likely 2/2 acute COPD exacerbation vs. acute CHF exacerbation. Pt. with BL LE edema, cough, and crackles concerning for fluid overload. ED course: CBC,CMP, BNP, Trop UA CXR EKG Albuterol/Ipratropium Methylprednisolone *DC/Admit/Observation/Transfer Diagnosis at time of Disposition: COPD exacerbation - Discharge Dispostion Condition at time of disposition: Improved Admit: Yes - Referrals Referrals: Ramona Hill MD [Primary Care Provider] - - Attestations Physician Attestion: 06/13/17 19:39 I, Dr. Lawrence Herrera, attest that this document has been prepared under my direction and personally reviewed by me in its entirety. I further attest, that it accurately reflects all work, treatment, procedures and medical decision -making performed by me.
--- NOTE | 2017-06-13 20:13 | HP ---
History obtained from Pt, daughter Roque, and chart CHIEF COMPLAINT: SOB PCP: Dr. Hill Paver: Dr. Key fish roe processor: Dr. Neto Valdez HISTORY OF PRESENT ILLNESS: 71yo actively smoking woman with PMH of TIA, NIDDM, HTN, HLD, COPD, ascending AA (4.5cm), GI bleed (2013), and rheumatoid arthritis who presents today with increasing shortness of breath for the past 3 days. According to the patient, and endorsed by daughter (Roque) who is at bedside , she was at her USOH approximately 3 days ago when she started noticing increasing shortness of breath while walking short distances around her house. The patient lives independently in a [facility], is independent in her ADLs, but reports becoming dyspneic when walking a few feet between her bed and bathroom. She endorses non-radiating chest pain on deep inhalation, but no palpitations, chest pressure or tightness. Patient states she's been having increased productive cough for the last day. The daughter (who works in [employer]) also notes that pt has had increased L>R pedal edema for the past day. No fever, chills, n/v, changes in BM, including melena or hematochezia. No dysuria, frequency, or urgency. ER course was notable for: (1) received Duonebs 1amp (2) received stress dose steroids - methylprednisolone 120mg IV Recent Travel: none PAST MEDICAL HISTORY: #COPD #Ascending aortic aneurysm (4.5 cm) #NIDDM #HTN #HLD #GI bleed in 2013 PAST SURGICAL HISTORY: #cardiac cath in 06/2015 #cholecystectomy #appendectomy #hysterectomy #ACL repair Social History: Smoking: current smoker, approx 10/day for 50y Alcohol: no Drugs: no Family History: Heart disease: father, brother, sister Allergies: NKDA HOME MEDICATIONS: Home Medications Medication Instructions Recorded Amlodipine Besylate [Norvasc -] 10 mg PO HS 04/30/15 Aspirin [ASA -] 81 mg PO Q2D 04/30/15 Glipizide [Glipizide ER] 5 mg PO DAILY 04/30/15 Metformin HCl [Metformin HCl ER] 500 mg PO DAILY 04/30/15 Metoprolol Tartrate 100 mg PO DAILY 04/30/15 Multivitamins [Multivit ([facility] 1 tab PO DAILY 04/30/15 Formulary)] Omeprazole [Prilosec (RX)] 40 mg PO DAILY 04/30/15 Losartan/Hydrochlorothiazide 1 each PO DAILY #0 tablet 05/05/15 [Hyzaar 50-12.5 Tablet] Albuterol Sulfate Inhaler - 2 inh PO Q6H 04/01/16 [Ventolin HFA Inhaler -] Fluticasone Prop 0.05% Nasal 1 - 2 spray NS DAILY 04/01/16 [Flonase -] Ipratropium/Albuterol Sulfate 4 gm IH BID 04/01/16 [Combivent Respimat Inhal [place]] Ranolazine [Ranexa -] 500 mg PO DAILY 04/01/16 Lipase/Protease/Amylase [Creon Dr 1 each PO TID 12/17/16 36,000 Units Capsule] Acetaminophen [Tylenol] 650 mg PO TID PRN 06/13/17 Gabapentin [Neurontin] 300 mg PO DAILY 06/13/17 Polyethylene Glycol 3350 [Miralax 17 gm PO DAILY 06/13/17 (For Daily Use) -] Risperidone [Risperdal] 1 mg PO HS 06/13/17 REVIEW OF SYSTEMS CONSTITUTIONAL: +chills (5-6 days ago, BGM at that time was in 40's), ~70lb weight loss over past 6mo (pt says intentional, daughter reports unintentional) Absent: fever, diaphoresis, generalized weakness, malaise, loss of appetite HEENT: Absent: rhinorrhea, nasal congestion, throat pain, throat swelling, difficulty swallowing, mouth swelling, ear pain, eye pain, visual changes CARDIOVASCULAR: +pedal edema (L>R) Absent: chest pain, syncope, palpitations, irregular heart rate, lightheadedness , peripheral edema RESPIRATORY: +SOB, cough, dyspnea with exertion, wheezing, orthopnea GASTROINTESTINAL: Absent: abdominal pain, abdominal distension, nausea, vomiting , diarrhea, constipation, melena, hematochezia GENITOURINARY: Absent: dysuria, frequency, urgency, hesitancy, hematuria, flank pain, genital pain MUSCULOSKELETAL: +arthralgia (h/o RA) SKIN: Absent: rash, itching, pallor HEMATOLOGIC/IMMUNOLOGIC: Absent: easy bleeding, easy bruising, lymphadenopathy, frequent infections ENDOCRINE: Absent: unexplained weight gain, unexplained weight loss, heat intolerance, cold intolerance NEUROLOGIC: Absent: headache, focal weakness or paresthesias, dizziness, unsteady gait, seizure, mental status changes, bladder or bowel incontinence PSYCHIATRIC: Absent: anxiety, depression, suicidal or homicidal ideation, hallucinations. PHYSICAL EXAMINATION GENERAL: Awake, alert, and fully oriented, in no acute distress. Speaking in full sentences. HEAD: Normal with no signs of trauma. EYES: Arcus senilis, PERRLA, EOMI, sclera anicteric, conjunctiva clear EARS, NOSE, THROAT: Oropharynx clear without exudates. moist mucous membranes NECK: supple, no cervical LAD LUNGS: bibasilar rhonchi and crackles, b/l inspiratory wheezing. no accessory muscle use. HEART: Regular rate and rhythm, normal S1 and S2 without murmur, rub or gallop. ABDOMEN: Soft, obese, nontender, not distended, normoactive bowel sounds, no guarding, no rebound, no masses. No hepatomegaly or splenomegaly. LOWER EXTREMITIES: 2+ pulses, warm, well-perfused. 1+ pedal edema. NEUROLOGICAL: Grossly intact, not formally tested PSYCHIATRIC: Cooperative. Good eye contact. Appropriate mood and affect. SKIN: Warm, dry, normal turgor, no rashes or lesions noted Laboratory Results - last 24 hr 06/13/17 06/13/17 06/13/17 17:59 17:59 18:20 WBC 4.9 RBC 4.47 Hgb 13.9 D Hct 43.1 MCV 96.4 H MCH 31.1 MCHC 32.2 RDW 15.3 Plt Count 226 D MPV 8.3 Neutrophils % 65.4 D Lymphocytes % 26.4 D Monocytes % 4.6 Eosinophils % 2.6 D Basophils % 1.0 Puncture Site ABG pH ABG pCO2 at Pt Temp ABG pO2 at Pt Temp ABG HCO3 ABG O2 Sat (Measured) ABG O2 Content ABG Base Excess Reji Test VBG pH POC VBG pCO2 POC VBG pO2 Mixed VBG HCO3 O2 Delivery Device Oxygen Flow Rate PEEP Sodium 140 Potassium 4.4 Chloride 102 Carbon Dioxide 33 H Anion Gap 5 L BUN 17 Creatinine 0.9 Creat Clearance w eGFR > 60 POC Glucometer Random Glucose 58 L D Calcium 10.6 H Total Bilirubin 0.4 D AST 16 ALT 13 D Alkaline Phosphatase 74 Creatine Kinase 50 Troponin I < 0.02 B-Natriuretic Peptide Total Protein 6.9 Albumin 3.4 06/13/17 06/13/17 06/13/17 18:21 19:11 19:25 WBC RBC Hgb Hct MCV MCH MCHC RDW Plt Count MPV Neutrophils % Lymphocytes % Monocytes % Eosinophils % Basophils % Puncture Site Left radial ABG pH 7.34 L ABG pCO2 at Pt Temp 59.3 H D ABG pO2 at Pt Temp 52.4 L ABG HCO3 30.9 H ABG O2 Sat (Measured) 83.8 L ABG O2 Content 15.6 ABG Base Excess 3.9 H Reji Test Positive VBG pH 7.33 POC VBG pCO2 63.1 H* POC VBG pO2 37.0 Mixed VBG HCO3 32.4 H O2 Delivery Device Nasal Oxygen Flow Rate 2l PEEP 0.0 Sodium Potassium Chloride Carbon Dioxide Anion Gap BUN Creatinine Creat Clearance w eGFR POC Glucometer Random Glucose Calcium Total Bilirubin AST ALT Alkaline Phosphatase Creatine Kinase Troponin I B-Natriuretic Peptide 482.61 H Total Protein Albumin 06/13/17 06/14/17 06/14/17 21:57 01:58 02:45 WBC RBC Hgb Hct MCV MCH MCHC RDW Plt Count MPV Neutrophils % Lymphocytes % Monocytes % Eosinophils % Basophils % Puncture Site ABG pH ABG pCO2 at Pt Temp ABG pO2 at Pt Temp ABG HCO3 ABG O2 Sat (Measured) ABG O2 Content ABG Base Excess Reji Test VBG pH POC VBG pCO2 POC VBG pO2 Mixed VBG HCO3 O2 Delivery Device Oxygen Flow Rate PEEP Sodium Potassium Chloride Carbon Dioxide Anion Gap BUN Creatinine Creat Clearance w eGFR POC Glucometer 126 173 Random Glucose Calcium Total Bilirubin AST ALT Alkaline Phosphatase Creatine Kinase Troponin I < 0.02 B-Natriuretic Peptide Total Protein Albumin EKG 06/13/17: NSR, VR 87 bpm, QTc 478, possible LAE, RBBB CXR 06/13/17: cardiomegaly, bibasilar atelectasis, no pneumothorax or focal consolidations ASSESSMENT/PLAN: 71yo woman who is an active smoker with PMH of COPD, HTN, HLD, TIA, GI Bleed, NIDDM, presents today with moderate hypoxic respiratory distress who is admitted for acute COPD exacerbation monitoring and management. #COPD exacerbation -Continue O2 therapy, SpO2 goal >90% -Standing Duoneb 1 amp NEB Q6h -PRN Duoneb 1 amp NEB Q4H -Methylprednisolone 40mg IV Q8H -Levofloxacin 750mg PO daily -Pulmonology (Dr. Benz) consulted #CHF r/o: last TTE in 2013 (EF 72%, mild concentric LVH); BNP elevated (482.61) -ECHO ordered for tomorrow -Trend troponin: 1st negative -Strict I&Os -Daily weights -Lasix 40mg IVPUSH ONCE for diuresis -Continue home Ranexa 500mg PO BID #NIDDM -Hold home diabetes medications -BGM Q4h -ISS Q4h -Continue home Gabapentin 300mg PO HS for diabetic foot neuropathy #HTN -Continue home medications: Amlodipine 10mg PO daily Metoprolol 100mg PO daily Losartan/HCTZ 50/12.5mg 1 tab PO daily #F/E/N -No IVF needed -Electrolytes wnl -Diabetic and Na controlled diet #DVT prophylaxis: moderate risk -b/l SCD's -Heparin 5000U SQ TIB #GI prophylaxis -Continue home Omeprazole 40mg PO daily #Dispo -Admit to Med/Surg -FULL code d/w team Kayla Romo MD PGY1 Visit type - Emergency Visit Emergency Visit: Yes ED Registration Date: 06/13/17 Care time: The patient presented to the Emergency Department on the above date and was hospitalized for further evaluation of their emergent condition. - New Patient This patient is new to me today: Yes Date on this admission: 06/15/17 - Critical Care Critical Care patient: No
--- NOTE | 2017-06-13 21:21 | HP ---
HISTORY OF PRESENT ILLNESS: Patient is a 71 year old female with a PMHx of HTN, NIDDMII, TIA, COPD, depression who presented for increasing shortness of breath for the last 24 hours associated with wheezing and productive cough with green sputum. She has been using her nebulizer more frequently in the last 24 hours and as per daughter, patient is more confused, which prompted this ED visit. Patient was prescribed home oxygen but has refused to take it due to discomfort, as per daughter. Otherwise, patient denies fever, chills, nausea, vomiting, abdominal pain, dysuria, hematuria, frequency. PHYSICAL EXAMINATION Vital Signs - 24 hr 06/13/17 20:15 Temperature 98.2 F Pulse Rate [ 86 Right Radial] Respiratory 28 H Rate Blood Pressure 164/112 [Right Arm] O2 Sat by Pulse 94 L Oximetry (%) GENERAL: Awake, alert, and fully oriented, in no acute distress. NECK: (-) JVD LUNGS: Bibasilar rhonchi and crackles throughout lung louie bilaterally with inspiratory and expiratory wheezing throughout lung bases and anteriorly. HEART: Regular rate and rhythm, normal S1 and S2 without murmur, rub or gallop. ABDOMEN: Soft, nontender, not distended, normoactive bowel sounds, no guarding, no rebound, no masses. LOWER EXTREMITIES: 1+ Pitting edema bilaterally with no calf tenderness. Abnormal Lab Results 06/13/17 06/13/17 06/13/17 17:59 17:59 18:21 MCV 96.4 H ABG pH ABG pCO2 at Pt Temp ABG pO2 at Pt Temp ABG HCO3 ABG O2 Sat (Measured) ABG Base Excess POC VBG pCO2 Mixed VBG HCO3 Carbon Dioxide 33 H Anion Gap 5 L Random Glucose 58 L D Calcium 10.6 H B-Natriuretic Peptide 482.61 H 06/13/17 06/13/17 19:11 19:25 MCV ABG pH 7.34 L ABG pCO2 at Pt Temp 59.3 H D ABG pO2 at Pt Temp 52.4 L ABG HCO3 30.9 H ABG O2 Sat (Measured) 83.8 L ABG Base Excess 3.9 H POC VBG pCO2 63.1 H* Mixed VBG HCO3 32.4 H Carbon Dioxide Anion Gap Random Glucose Calcium B-Natriuretic Peptide ASSESSMENT/PLAN: Patient is a 71 year old female with a PMHx of HTN, NIDDMII, TIA, COPD, depression who presented for shortness of breath associated with a productive cough. Patient was found to have COPD exacerbation and admitted for further monitoring and management. COPD Exacerbation -DuoNeb standing Q4H and PRN Q2H -Continue home med Ventolin -Levaquin IV started -Solumedrol 60mg Q12H -Continue 02 and maintain >90% saturation -Pulmonology consult placed -Continue to monitor 02 saturation Possible CHF -Patient history shows she is on Ranexa? -Last ECHO in 2013 shows LV hypertrophy. Will repeat -BNP >400 -Lasix one dose, Strict I&O's and daily weight -Continue home medication Ranexa HTN-Continue home medications Norvasc, Losartan, Metoprolol NIDDMII- BGM and ISS Depression- Continue home medication Risperidone Rheumatoid Arthritis- Patient's daughter reports she takes 1 percocet at night. One dose ordered Prophylaxis- Heparin SQ Disposition- Full code. Admit to med/surg Visit type - Emergency Visit Emergency Visit: Yes ED Registration Date: 06/13/17 Care time: The patient presented to the Emergency Department on the above date and was hospitalized for further evaluation of their emergent condition. - New Patient This patient is new to me today: Yes Date on this admission: 06/14/17 - Critical Care Critical Care patient: No
[2017-06-13] MEDS ORDERED: FUROSEMIDE 40 MG/4 ML INJECTABLE VIAL IVPUSH ONE (21:59)
[2017-06-13] MEDS ORDERED: HEPARIN NA (PORCINE) 5,000 UNITS/ML 1ML VIAL SQ SCH (22:00)
[2017-06-13] MEDS ORDERED: ALBUTEROL SO4 2.5/IPRATROPIUM 0.5 INH SOL 3 ML VIAL.NEB. NEB PRN (22:05)
[2017-06-13] MEDS: INSULIN SLIDING SCALE (NOVOLOG) 1 VIAL SQ SCH (22:07)
[2017-06-13] MEDS ORDERED: OXYCODONE/APAP 5/325MG COMBO TABLET PO ONE (22:07)
[2017-06-13] MEDS ORDERED: LIPASE/PROTEASE/AMYLASE 36,000 UNIT CAPSULE PO SCH (22:15)
[2017-06-13] MEDS ORDERED: oxyCODONE HCL 5 MG TABLET PO ONE (22:15)
[2017-06-13] MEDS: HEPARIN NA (PORCINE) 5,000 UNITS/ML 1ML VIAL SQ SCH (22:24)
[2017-06-13] MEDS: ACETAMINOPHEN 325 MG TABLET (FP) PO ONE ×2 (22:42→22:43)
[2017-06-13] MEDS: amLODIPine BESYLATE 10 MG TABLET (FP) PO SCH (22:44)
[2017-06-13] MEDS: risperiDONE 1 MG TABLET (FP) PO SCH (22:56)
[2017-06-13] MEDS: GABAPENTIN 300 MG CAPSULE (FP) PO SCH (23:23)
[2017-06-14] MEDS: MELATONIN 5 MG TABLETS PO SCH ×2 (00:04→21:09)
[2017-06-14] MEDS: ALBUTEROL SO4 2.5/IPRATROPIUM 0.5 INH SOL 3 ML VIAL.NEB. NEB SCH ×4 (00:09→17:41)
[2017-06-14] MEDS: INSULIN SLIDING SCALE (NOVOLOG) 1 VIAL SQ SCH ×6 (01:59→21:08)
[2017-06-14] MEDS ORDERED: methylPREDNISolone NA SUCC 40 MG/1 ML VIAL IVPB SCH (02:00)
[2017-06-14] MEDS: HEPARIN NA (PORCINE) 5,000 UNITS/ML 1ML VIAL SQ SCH ×3 (05:50→21:09)
[2017-06-14] MEDS ORDERED: LEVOFLOXACIN 750 MG TABLET PO SCH (06:00)
[2017-06-14 07:25] LABS: MCHC 32.6 g/dl (32.0-36.0); MEAN PLT VOLUME 8.2 fl (7.5-11.1); PLATELET COUNT 198 K/MM3 (134-434); WHITE BLOOD COUNT 2.9 K/mm3 (4.0-10.0)
[2017-06-14 07:50] LABS: ANION GAP 5 (8-16); CALCIUM 10.3 mg/dL (8.5-10.1); CO2 33 mmol/L (21-32); GLUCOSE,RANDOM 152 mg/dL (74-106)
[2017-06-14] MEDS: METOPROLOL TARTRATE 50 MG TABLET (FP) PO SCH (09:55)
[2017-06-14] MEDS: MULTIVITAMINS (DAILY MVI) TABLET (FP) PO SCH (09:55)
[2017-06-14] MEDS: RANOLAZINE E.R. 500 MG TABLET (FP) PO SCH (09:55)
[2017-06-14] MEDS: LOSARTAN 50MG/HCTZ 12.5MG 1 TAB (FP) PO SCH (09:55)
[2017-06-14] MEDS: PANTOPRAZOLE 40 MG TABLET (FP) PO SCH (09:55)
[2017-06-14] MEDS: methylPREDNISolone NA SUCC 40 MG/1 ML VIAL IVPB SCH ×2 (09:57→17:54)
[2017-06-14] MEDS: POLYETHYLENE GLYCOL 3350 119 GM BTL PO SCH (09:59)
[2017-06-14] MEDS ORDERED: GABAPENTIN 300 MG CAPSULE (FP) PO SCH ×2 (10:00→22:00)
--- NOTE | 2017-06-14 11:04 | CON.PULM ---
Consult Consult Specialty:: PULMONARY Referred by:: Dr. Barnett Reason for Consultation:: COPD exacerbation - History of Present Illness Chief Complaint: shortness of breath History of Present Illness: 71yo female with h/o HTN, DM, hyperlipidemia, COPD, rheumatoid arthritis, ascending aortic aneurysm who was admitted with worsening shortness of breath x 3 days. She reports cough productive of clear/white sputum and wheezing. No fevers or chills. No sick contacts or recent travel. Denies being on home O2. Per chart pt with some pedal edema but pt denies. Maintained on "asthma pump" but does not know which one. - History Source History Provided By: Patient, Medical Record Limitations to Obtaining History: Poor Historian - Past Medical History Cardio/Vascular: Yes: HTN Pulmonary: Yes: COPD ...: No Rheumatology: Yes: Rheumatoid Arthritis Endocrine: Yes: Diabetes Mellitus - Past Surgical History Past Surgical History: Yes: Hysterectomy, Appendectomy, Cholecystectomy - Alcohol/Substance Use Hx Alcohol Use: No - Smoking History Smoking history: Current every day smoker Have you smoked in the past 12 months: Yes Aproximately how many cigarettes per day: 10 If you are a former smoker, when did you quit?: 6 months Home Medications - Allergies Allergies/Adverse Reactions: Allergies Allergy/AdvReac Type Severity Reaction Status Date / Time No Known Allergies Allergy Verified 12/17/16 15:54 - Home Medications Home Medications: Ambulatory Orders Amlodipine Besylate [Norvasc -] 10 mg PO HS 04/30/15 Aspirin [ASA -] 81 mg PO Q2D 04/30/15 Glipizide [Glipizide ER] 5 mg PO DAILY 04/30/15 Metformin HCl [Metformin HCl ER] 500 mg PO DAILY 04/30/15 Metoprolol Tartrate 100 mg PO DAILY 04/30/15 Multivitamins [Multivit ([facility] Formulary)] 1 tab PO DAILY 04/30/15 Omeprazole [Prilosec (RX)] 40 mg PO DAILY 04/30/15 Losartan/Hydrochlorothiazide [Hyzaar 50-12.5 Tablet] 1 each PO DAILY #0 tablet 05/05/15 Albuterol Sulfate Inhaler - [Ventolin HFA Inhaler -] 2 inh PO Q6H 04/01/16 Fluticasone Prop 0.05% Nasal [Flonase -] 1 - 2 spray NS DAILY 04/01/16 Ipratropium/Albuterol Sulfate [Combivent Respimat Inhal [place]] 4 gm IH BID 04/01 Ranolazine [Ranexa -] 500 mg PO DAILY 04/01/16 Acetaminophen [Tylenol] 650 mg PO TID PRN 06/13/17 Gabapentin [Neurontin] 300 mg PO HS 06/13/17 Polyethylene Glycol 3350 [Miralax (For Daily Use) -] 17 gm PO DAILY 06/13/17 Risperidone [Risperdal] 1 mg PO HS 06/13/17 Melatonin 10 mg Tablet 10 mg PO HS 06/14/17 Family Disease History - Family Disease History Family Disease History: Heart Disease: Father, Brother, Sister Review of Systems - Review of Systems Constitutional: denies: Chills, Fever Eyes: denies: Recent Change in Vision HENT: denies: Nasal Congestion, Throat Pain Neck: denies: Stiffness, Tenderness Cardiovascular: reports: Shortness of Breath. denies: Chest Pain, Edema, Palpitations Respiratory: reports: Cough, SOB, Wheezing. denies: Hemoptysis Gastrointestinal: denies: Abdominal Pain, Nausea, Vomiting Genitourinary: denies: Dysuria, Hematuria Neurological: denies: Dizziness, Headache Endocrine: denies: Unexplained Weight Gain, Unexplained Weight Loss Physical Exam Vital Sings: Vital Signs Temperature 98.4 F 06/14/17 02:00 Pulse Rate 93 H 06/14/17 02:00 Respiratory Rate 20 06/14/17 02:00 Blood Pressure 127/73 06/14/17 02:00 O2 Sat by Pulse Oximetry (%) 98 06/14/17 00:22 Constitutional: Yes: Calm Eyes: Yes: Conjunctiva Clear, EOM Intact HENT: Yes: Atraumatic, Normocephalic Neck: Yes: Supple, Trachea Midline Cardiovascular: Yes: Regular Rate and Rhythm Respiratory: Yes: Rhonchi (scattered), Wheezes (scattered) ...Clubbing: No Gastrointestinal: Yes: Normal Bowel Sounds, Soft. No: Tenderness Edema: No Peripheral Pulses WNL: Yes Neurological: Yes: Alert, Oriented Labs: CBC, BMP 06/14/17 05:35 06/14/17 05:35 ABG Results ABG pH 7.34 (7.35-7.45) L 06/13/17 19:25 ABG pCO2 at Pt Temp 59.3 mmHg (35-45) H D 06/13/17 19:25 ABG pO2 at Pt Temp 52.4 mmHg (70-100) L 06/13/17 19:25 ABG HCO3 30.9 meq/L (22-26) H 06/13/17 19:25 ABG O2 Sat (Measured) 83.8 % (90-98.9) L 06/13/17 19:25 ABG O2 Content 15.6 % vol (15-22) 06/13/17 19:25 ABG Base Excess 3.9 meq/l (-2-2) H 06/13/17 19:25 Imaging - Results Chest X-ray: Report Reviewed, Image Reviewed (no infiltrates) Problem List - Problems (1) COPD exacerbation Code(s): J44.1 - CHRONIC OBSTRUCTIVE PULMONARY DISEASE W (ACUTE) EXACERBATION (2) Diabetes mellitus Code(s): E11.9 - TYPE 2 DIABETES MELLITUS WITHOUT COMPLICATIONS (3) Hypertension Code(s): I10 - ESSENTIAL (PRIMARY) HYPERTENSION Assessment/Plan Acute COPD Exacerbation Acute Hypoxic Respiratory Failure improving Likely Chronic Hypercapneic Respiratory Failure HTN DM - agree with IV medrol - inhaled bronchodilators standing and PRN - will change PRN nebs to albuterol to avoid overdosing anticholinergics - O2 to keep SpO2 >90%, room air SpO2 currently 85% likely due to V/Q mismatching from bronchospasm/obstructive airways - will need to check ambulatory SpO2 on room air when ready for discharge to assess for home O2 - on empiric antibiotics, can decrease dose of levaquin as no infiltrate seen - outpt PFTs and PSG to evaluate etiology of chronic hypercapnea - DVT prophylaxis Thank you for this consult Jayden James MD
[2017-06-14] MEDS ORDERED: ALBUTEROL SO4 0.083% IH SOL 2.5 MG/3 ML VIAL.NEB. NEB PRN (11:13)
[2017-06-14] MEDS ORDERED: guaiFENesin 200 MG/10 ML 10 ML UNIT-DOSE CUPS PO ONE (13:45)
--- NOTE | 2017-06-14 13:57 | PN ---
Teaching Attending Note Name of Resident: Enio Martinez ATTENDING PHYSICIAN STATEMENT I saw and evaluated the patient. I reviewed the resident's note and discussed the case with the resident. I agree with the resident's findings and plan as documented. SUBJECTIVE:currently improved. continues to have productive cough of yellow sputum. denies CP, fever, chills, night sweats. unclear if she has orthopnea as she states she sleeps on 1-7 pillows depedning on the night and can not ascertain if this is worsening. OBJECTIVE: Last Vital Signs Temp Pulse Resp BP Pulse Ox 97.9 F 94 H 24 123/66 89 L 06/14/17 10:00 06/14/17 10:00 06/14/17 10:00 06/14/17 10:00 06/14/17 09:00 General NAD CV S1 S2 RRR no murmur/rub/gallop no JVD lungs poor inspiratory effort. diffuse wheezing. extremities trace pitting edema ASSESSMENT AND PLAN: 71yo F wtih PMH TIA, HTN, AAA, DM, COPD presented to the ER with SOB and productive cough 1. Acute hypoxic respiratory failure due to COPD exacerbation- not much improvement since yesterday. will continue current medrol dosing. levaquin day 1. supplemental oxygen to maintain spO2>90%. nebs prn 2. concern for CHF- has some pedal edema, unable to appreciate crackles. echo pending. will f/u. received lasix yesterday. hold lasix at this time 3. DM-unclear if controlled. confirm home medications. A1c pending. hold oral agents. iss 4. HTN- controlled. cont current management 5. DVT ppx- start hep sq
--- NOTE | 2017-06-14 14:01 | MSN ---
Progress Note (short form) - Note Progress Note: Subjective: Patient is a 71 year old female smoker with a past medical history of COPD, HTN , HLD, TIA, GI bleed, and type II diabetes. The patient was at her assisted living facility three days prior when she began having SOB, pleuritic chest pain , productive cough with yellow sputum and leg swelling. Patient was seen by me today at the bedside. She stated that she felt better today than previous days. Patient is alert and oriented to place but has difficulty remembering current events. she stated that she still has cough but it is less frequent and she is no longer have sputum productions. Patient also stated that she has been feeling lightheaded when she uses the bathroom that subsides when she sits down. Patient is having regular bowels movements and is urinating without problem. Patient is tolerating her diet. Otherwise, the patient denies any chest pain, palpations, headache, fever, chills, abdominal pain, or diarrhea. Vital Signs Period Temp Pulse Resp BP Sys/Cox Pulse Ox Last 24 Hr 97.9 F-99.2 F 85-94 18-28 123-164/66-112 71-98 Exam: General: Patient was laying comfortably in her bed, alert and oriented in no acute distress. Neuro: No focal neurological deficit, CN III-XII were tested and intact. Patient had normal sensation on the face bilaterally, able to smile, winkles forehead and shrug shoulders against resistance. Eyes: PERRLA, sensitivity to light. Heart: Regular rate and rhythm with normal S1 and S2 with no murmurs rubs or gallops Lungs: wheezes auscultated bilaterally in all lung louie with bi-baslar crackles noted bilaterally in the posterior lower lung louie. Abdomen: No guarding, no distention, no rebounding. normoactive bowel sounds, no tenderness to palpation in any of the four quadrants to light or deep palpations. Extremities: 5/5 muscle strength, 2/4 pulses in all extremities with intact sensation. Non-pitting edema noted bilaterally in the feet with L>R. Skin: Warm and dry with normal turgor noted. Laboratory Results - last 24 hr 06/13/17 06/13/17 06/13/17 17:59 17:59 18:20 WBC 4.9 RBC 4.47 Hgb 13.9 D Hct 43.1 MCV 96.4 H MCH 31.1 MCHC 32.2 RDW 15.3 Plt Count 226 D MPV 8.3 Neutrophils % 65.4 D Lymphocytes % 26.4 D Monocytes % 4.6 Eosinophils % 2.6 D Basophils % 1.0 Puncture Site ABG pH ABG pCO2 at Pt Temp ABG pO2 at Pt Temp ABG HCO3 ABG O2 Sat (Measured) ABG O2 Content ABG Base Excess Reji Test VBG pH POC VBG pCO2 POC VBG pO2 Mixed VBG HCO3 O2 Delivery Device Oxygen Flow Rate PEEP Sodium 140 Potassium 4.4 Chloride 102 Carbon Dioxide 33 H Anion Gap 5 L BUN 17 Creatinine 0.9 Creat Clearance w eGFR > 60 POC Glucometer Random Glucose 58 L D Calcium 10.6 H Total Bilirubin 0.4 D AST 16 ALT 13 D Alkaline Phosphatase 74 Creatine Kinase 50 Troponin I < 0.02 B-Natriuretic Peptide Total Protein 6.9 Albumin 3.4 06/13/17 06/13/17 06/13/17 18:21 19:11 19:25 WBC RBC Hgb Hct MCV MCH MCHC RDW Plt Count MPV Neutrophils % Lymphocytes % Monocytes % Eosinophils % Basophils % Puncture Site Left radial ABG pH 7.34 L ABG pCO2 at Pt Temp 59.3 H D ABG pO2 at Pt Temp 52.4 L ABG HCO3 30.9 H ABG O2 Sat (Measured) 83.8 L ABG O2 Content 15.6 ABG Base Excess 3.9 H Reji Test Positive VBG pH 7.33 POC VBG pCO2 63.1 H* POC VBG pO2 37.0 Mixed VBG HCO3 32.4 H O2 Delivery Device Nasal Oxygen Flow Rate 2l PEEP 0.0 Sodium Potassium Chloride Carbon Dioxide Anion Gap BUN Creatinine Creat Clearance w eGFR POC Glucometer Random Glucose Calcium Total Bilirubin AST ALT Alkaline Phosphatase Creatine Kinase Troponin I B-Natriuretic Peptide 482.61 H Total Protein Albumin 06/13/17 06/14/17 06/14/17 21:57 01:58 02:45 WBC RBC Hgb Hct MCV MCH MCHC RDW Plt Count MPV Neutrophils % Lymphocytes % Monocytes % Eosinophils % Basophils % Puncture Site ABG pH ABG pCO2 at Pt Temp ABG pO2 at Pt Temp ABG HCO3 ABG O2 Sat (Measured) ABG O2 Content ABG Base Excess Reji Test VBG pH POC VBG pCO2 POC VBG pO2 Mixed VBG HCO3 O2 Delivery Device Oxygen Flow Rate PEEP Sodium Potassium Chloride Carbon Dioxide Anion Gap BUN Creatinine Creat Clearance w eGFR POC Glucometer 126 173 Random Glucose Calcium Total Bilirubin AST ALT Alkaline Phosphatase Creatine Kinase Troponin I < 0.02 B-Natriuretic Peptide Total Protein Albumin 06/14/17 06/14/17 06/14/17 05:35 05:35 05:48 WBC 2.9 L D RBC 4.23 Hgb 13.5 Hct 41.4 MCV 98.0 H MCH 32.0 MCHC 32.6 RDW 15.0 Plt Count 198 MPV 8.2 Neutrophils % Lymphocytes % Monocytes % Eosinophils % Basophils % Puncture Site ABG pH ABG pCO2 at Pt Temp ABG pO2 at Pt Temp ABG HCO3 ABG O2 Sat (Measured) ABG O2 Content ABG Base Excess Reji Test VBG pH POC VBG pCO2 POC VBG pO2 Mixed VBG HCO3 O2 Delivery Device Oxygen Flow Rate PEEP Sodium 139 Potassium 4.2 Chloride 101 Carbon Dioxide 33 H Anion Gap 5 L BUN 17 Creatinine 1.0 Creat Clearance w eGFR POC Glucometer 136 Random Glucose 152 H D Calcium 10.3 H Total Bilirubin AST ALT Alkaline Phosphatase Creatine Kinase Troponin I B-Natriuretic Peptide Total Protein Albumin 06/14/17 11:26 WBC RBC Hgb Hct MCV MCH MCHC RDW Plt Count MPV Neutrophils % Lymphocytes % Monocytes % Eosinophils % Basophils % Puncture Site ABG pH ABG pCO2 at Pt Temp ABG pO2 at Pt Temp ABG HCO3 ABG O2 Sat (Measured) ABG O2 Content ABG Base Excess Reji Test VBG pH POC VBG pCO2 POC VBG pO2 Mixed VBG HCO3 O2 Delivery Device Oxygen Flow Rate PEEP Sodium Potassium Chloride Carbon Dioxide Anion Gap BUN Creatinine Creat Clearance w eGFR POC Glucometer 243 Random Glucose Calcium Total Bilirubin AST ALT Alkaline Phosphatase Creatine Kinase Troponin I B-Natriuretic Peptide Total Protein Albumin Current Medications Generic Name Dose Route Start Last Admin Trade Name Freq PRN Reason Stop Dose Admin Acetaminophen 650 mg 06/14/17 13:39 Tylenol - PO Q6H PRN FEVER OR PAIN Albuterol Sulfate 1 amp 06/14/17 11:13 Ventolin 0.083% Nebulizer Soln - NEB Q4H PRN SHORT OF BREATH/WHEEZING Albuterol/Ipratropium 1 amp 06/14/17 00:00 06/14/17 11:00 Duoneb - NEB 1 amp QIDR IVANIA Administration Amlodipine Besylate 10 mg 06/13/17 22:45 06/13/17 22:44 Norvasc - PO 10 mg HS IVANIA Administration Aspirin 81 mg 06/15/17 10:00 Asa - PO Q2D@10 IVANIA Gabapentin 300 mg 06/13/17 23:30 06/13/17 23:23 Neurontin - PO 300 mg HS IVANIA Administration HCTZ/Losartan Potassium 1 tab 06/14/17 10:00 06/14/17 09:55 Hyzaar - PO 1 tab DAILY IVANIA Administration Heparin Sodium (Porcine) 5,000 unit 06/13/17 22:15 06/14/17 05:50 Heparin - SQ 5,000 unit TID IVANIA Administration Insulin Aspart 1 vial 06/13/17 22:00 06/14/17 05:50 Novolog Vial Sliding Scale - SQ Not Given Q4HPO PENDING SALE TO [facility] Protocol Levofloxacin 750 mg 06/14/17 06:00 06/14/17 06:06 Levaquin PO 750 mg DAILY@06 IVANIA Administration Melatonin 10 mg 06/13/17 23:30 06/14/17 00:04 Melatonin PO 10 mg HS IVANIA Administration Methylprednisolone Sodium Succinate 40 mg 06/14/17 10:00 06/14/17 09:57 Solu-Medrol - IVPB 40 mg Q8H-IV IVANIA Administration Metoprolol Tartrate 100 mg 06/14/17 10:00 06/14/17 09:55 Lopressor - PO 100 mg DAILY IVANIA Administration Multivitamins/Minerals/Vitamin C 1 tab 06/14/17 10:00 06/14/17 09:55 Tab-A-Vit - PO 1 tab DAILY IVANIA Administration Pantoprazole Sodium 40 mg 06/14/17 10:00 06/14/17 09:55 Protonix - PO 40 mg DAILY IVANIA Administration Polyethylene Glycol 17 gm 06/14/17 10:00 06/14/17 09:59 Miralax (For Daily Use) - PO 17 grams DAILY IVANIA Administration Ranolazine 500 mg 06/14/17 10:00 06/14/17 09:55 Ranexa - PO 500 mg DAILY IVANIA Administration Risperidone 1 mg 06/13/17 23:00 06/13/17 22:56 Risperdal - PO 1 mg HS IVANIA Administration Imaging: EKG (06/13/17)- Right bundle branch block, left ventricular enlargement noted. Chest X-ray (06/13/17)- No evidence of active pulmonary disease. Previous Echocardiogram (2013)- Left ventricular hypertrophy, Normal Ejection Fraction. Repeat Echocardiogram (06/14/17)- Awaiting interpretation. Comfirmed at home medication list: - Losartan/HTC 50/12.5 once daily - Toprolol 100mg once daily - Metformin 500mg once daily - Glipazide xl 5mg once per day - renexa 500mg twice a day - respiridone 1 mg once per day - omeprazole 40mg once per day - Gabapentin 300 mg at night *previously taking, ventolin 2 puffs q4, Incruse 1 per day, and flonase, is no longer being taken. Assessment and Plan: Patient is a 71 year old female smoker with a past medical history of COPD, HTN , HLD, TIA, GI bleed, Type II diabetes, who was admitted to the hospital for treatment for COPD exacerbation. # COPD exacerbation - improving - signs of fluid overload including lung crackles, and non pitting edema - continue oxygen through Nasal cannula at 3 L /m - Duenebs q6, and albuterol PRN. Changed from Duenebs PRN per Dr. James. - change Levofloxacin at 750 mg to a lower dose as per Dr. James - continue methylprednisone 40 mg IV q8 until resolution of symptoms then begin taper. - Dr. James consulted and on the case # Rule out CHF - Echo order awaiting completion - BNP elevated upon admission at 482 - Troponins negative X2 - Lasix 40 mg IV Push once was given in the ED - continuing at home renexa 500 mg PO BID - Dr. 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 - continue gabapentin 300 mg PO hs for prevention of diabetic foot ulcer. - HgA1C order not completed # HTN - continue at home medication - amlodipine 10 mg PO daily - Metoprolol 100mg PO daily - Losartan/ HTZ 50/12.5 mg 1 Tab PO daily # GI prophylaxis - omeprazole 40mg PO daily # DVT prophylaxis - continue heparin 5000 sq TID
--- NOTE | 2017-06-14 14:03 | CON.CARD ---
Consult Consult Specialty:: Cardiology Referred by:: Hospitalist Reason for Consultation:: Cardiac evaluation - History of Present Illness Chief Complaint: Shortness of breath History of Present Illness: Patient is a 71 year old female well known to me with underlying history of coronary artery disease, angina pectoris, hypertension, type 2 diabetes mellitus , COPD with history of exacerbation and rheumatoid arthritis, ascending aortic aneurysm who presents with worsening shortness of breath for past 3 days. She has had cardiac catheterization in 2014 after an abnormal nuclear perfusion imaging and it revealed moderately obstructed RCA (50%) and 80% RPDA. Patient was continued on medical therapy. She was seen in the office on 02/16/17. Last ascending aorta was measured at 4.3 cm. Currently she denies chest pain or palpitations. She complains of productive cough clear/white sputum and some wheezing. She denies fever or chills. She denies paroxysmal nocturnal dyspnea or orthopnea. She denies headache or lightheadedness. Cardiology consultation was called for further evaluation. - History Source History Provided By: Patient, Medical Record Limitations to Obtaining History: No Limitations - Past Medical History Cardio/Vascular: Yes: CAD, HTN Pulmonary: Yes: COPD ...: No Rheumatology: Yes: Rheumatoid Arthritis Endocrine: Yes: Diabetes Mellitus - Past Surgical History Past Surgical History: Yes: Hysterectomy, Appendectomy, Cholecystectomy - Alcohol/Substance Use Hx Alcohol Use: No - Smoking History Smoking history: Current every day smoker Have you smoked in the past 12 months: Yes Aproximately how many cigarettes per day: 10 If you are a former smoker, when did you quit?: 6 months Home Medications - Allergies Allergies/Adverse Reactions: Allergies Allergy/AdvReac Type Severity Reaction Status Date / Time No Known Allergies Allergy Verified 12/17/16 15:54 - Home Medications Home Medications: Ambulatory Orders Glipizide [Glipizide ER] 5 mg PO DAILY 04/30/15 Metformin HCl [Metformin HCl ER] 500 mg PO DAILY 04/30/15 Metoprolol Tartrate 100 mg PO DAILY 04/30/15 Omeprazole [Prilosec (RX)] 40 mg PO DAILY 04/30/15 Losartan/Hydrochlorothiazide [Hyzaar 50-12.5 Tablet] 1 each PO DAILY #0 tablet 05/05/15 Ranolazine [Ranexa -] 500 mg PO BID 04/01/16 Gabapentin [Neurontin] 300 mg PO HS 06/13/17 Risperidone [Risperdal] 1 mg PO HS 06/13/17 Family Disease History - Family Disease History Family Disease History: Heart Disease: Father, Brother, Sister Review of Systems - Review of Systems Constitutional: denies: Chills, Fever Cardiovascular: reports: Shortness of Breath. denies: Chest Pain, Palpitations Respiratory: reports: Cough, SOB. denies: Hemoptysis, Orthopnea, PND Gastrointestinal: denies: Abdominal Pain, Constipation, Diarrhea, Melena, Nausea , Rectal Bleeding, Vomiting Genitourinary: denies: Dysuria Musculoskeletal: denies: Joint Pain Neurological: denies: Dizziness, Headache, Seizure, Syncope, Weakness Vital Signs: Vital Signs Temperature 97.9 F 06/14/17 10:00 Pulse Rate 94 H 06/14/17 10:00 Respiratory Rate 24 06/14/17 10:00 Blood Pressure 123/66 06/14/17 10:00 O2 Sat by Pulse Oximetry (%) 89 L 06/14/17 09:00 Neck: Yes: Supple Respiratory: Yes: Cough, Diminished Gastrointestinal: Yes: Normal Bowel Sounds, Soft. No: Tenderness Cardiovascular: Yes: Regular Rate and Rhythm JVD: No Carotid Bruit: No PMI: Non-Displaced Heart Sounds: Yes: S1, S2 Murmur: No: Systolic Murmur Edema: No - Other Data Labs, Other Data: CBC, BMP 06/14/17 05:35 06/14/17 05:35 Troponin, BNP 06/14/17 02:45 Troponin I < 0.02 Laboratory Results - last 24 hr 06/13/17 06/13/17 06/13/17 17:59 17:59 18:20 WBC 4.9 RBC 4.47 Hgb 13.9 D Hct 43.1 MCV 96.4 H MCH 31.1 MCHC 32.2 RDW 15.3 Plt Count 226 D MPV 8.3 Neutrophils % 65.4 D Lymphocytes % 26.4 D Monocytes % 4.6 Eosinophils % 2.6 D Basophils % 1.0 Puncture Site ABG pH ABG pCO2 at Pt Temp ABG pO2 at Pt Temp ABG HCO3 ABG O2 Sat (Measured) ABG O2 Content ABG Base Excess Reji Test VBG pH POC VBG pCO2 POC VBG pO2 Mixed VBG HCO3 O2 Delivery Device Oxygen Flow Rate PEEP Sodium 140 Potassium 4.4 Chloride 102 Carbon Dioxide 33 H Anion Gap 5 L BUN 17 Creatinine 0.9 Creat Clearance w eGFR > 60 POC Glucometer Random Glucose 58 L D Calcium 10.6 H Total Bilirubin 0.4 D AST 16 ALT 13 D Alkaline Phosphatase 74 Creatine Kinase 50 Troponin I < 0.02 B-Natriuretic Peptide Total Protein 6.9 Albumin 3.4 06/13/17 06/13/17 06/13/17 18:21 19:11 19:25 WBC RBC Hgb Hct MCV MCH MCHC RDW Plt Count MPV Neutrophils % Lymphocytes % Monocytes % Eosinophils % Basophils % Puncture Site Left radial ABG pH 7.34 L ABG pCO2 at Pt Temp 59.3 H D ABG pO2 at Pt Temp 52.4 L ABG HCO3 30.9 H ABG O2 Sat (Measured) 83.8 L ABG O2 Content 15.6 ABG Base Excess 3.9 H Reji Test Positive VBG pH 7.33 POC VBG pCO2 63.1 H* POC VBG pO2 37.0 Mixed VBG HCO3 32.4 H O2 Delivery Device Nasal Oxygen Flow Rate 2l PEEP 0.0 Sodium Potassium Chloride Carbon Dioxide Anion Gap BUN Creatinine Creat Clearance w eGFR POC Glucometer Random Glucose Calcium Total Bilirubin AST ALT Alkaline Phosphatase Creatine Kinase Troponin I B-Natriuretic Peptide 482.61 H Total Protein Albumin 06/14/17 06/14/17 06/14/17 05:35 05:35 05:48 WBC 2.9 L D RBC 4.23 Hgb 13.5 Hct 41.4 MCV 98.0 H MCH 32.0 MCHC 32.6 RDW 15.0 Plt Count 198 MPV 8.2 Neutrophils % Lymphocytes % Monocytes % Eosinophils % Basophils % Puncture Site ABG pH ABG pCO2 at Pt Temp ABG pO2 at Pt Temp ABG HCO3 ABG O2 Sat (Measured) ABG O2 Content ABG Base Excess Reji Test VBG pH POC VBG pCO2 POC VBG pO2 Mixed VBG HCO3 O2 Delivery Device Oxygen Flow Rate PEEP Sodium 139 Potassium 4.2 Chloride 101 Carbon Dioxide 33 H Anion Gap 5 L BUN 17 Creatinine 1.0 Creat Clearance w eGFR POC Glucometer 136 Random Glucose 152 H D Calcium 10.3 H Total Bilirubin AST ALT Alkaline Phosphatase Creatine Kinase Troponin I B-Natriuretic Peptide Total Protein Albumin Sinus rhythm with RBBB and inferior infarct, old Echo: Pending Imaging - Results Chest X-ray: Report Reviewed (Unremarkable) EKG: Report Reviewed Problem List - Problems (1) COPD exacerbation Code(s): J44.1 - CHRONIC OBSTRUCTIVE PULMONARY DISEASE W (ACUTE) EXACERBATION (2) Chest pain Code(s): R07.9 - CHEST PAIN, UNSPECIFIED Qualifiers: Chest pain type: unspecified Qualified Code(s): R07.9 - Chest pain, unspecified (3) Diabetes mellitus Code(s): E11.9 - TYPE 2 DIABETES MELLITUS WITHOUT COMPLICATIONS Qualifiers: Diabetes mellitus type: type 2 Diabetes mellitus complication status: without complication Diabetes mellitus jail insulin use: without jail use Qualified Code(s): E11.9 - Type 2 diabetes mellitus without complications (4) Hypertension Code(s): I10 - ESSENTIAL (PRIMARY) HYPERTENSION Qualifiers: Hypertension type: essential hypertension Qualified Code(s): I10 - Essential (primary) hypertension (5) CAD (coronary artery disease) Code(s): I25.10 - ATHSCL HEART DISEASE OF [place] CORONARY ARTERY W/O ANG PCTRS Qualifiers: Coronary Disease-Associated Artery/Lesion type: [place] artery [place] vs. transplanted heart: [place] heart Associated angina: without angina Qualified Code(s): I25.10 - Atherosclerotic heart disease of [place] coronary artery without angina pectoris (6) Rheumatoid arthritis Code(s): M06.9 - RHEUMATOID ARTHRITIS, UNSPECIFIED Qualifiers: Rheumatoid arthritis location: unspecified site Rheumatoid factor presence: unspecified presence Qualified Code(s): M06.9 - Rheumatoid arthritis, unspecified (7) Right bundle branch block (RBBB) Code(s): I45.10 - UNSPECIFIED RIGHT BUNDLE-BRANCH BLOCK Assessment/Plan 1. Shortness of breath and productive cough suggests COPD exacerbation - no prior history of LV failure 2. Coronary artery disease with obstructive RCA and RPDA, angina pectoris 3. Hypertension/hypertensive cardiovascular disease 4. Type 2 diabetes mellitus 5. Ascending thoracic aortic aneurysm 6. History of rheumatoid arthritis 7. Right bundle branch block 8. Previous history of GI bleed 9. Neutropenia PLAN: 1. Continue empiric antibiotic coverage 2. Continue bronchodilator, nebulizer and steroid taper 3. Continue Metoprolol, Hyzaar, Amlodipine and Ranexa as tolerated 4. Continue ASA 5. Continue GI prophylaxis Further plans are to follow Neto Valdez MD
[2017-06-14] MEDS ORDERED: OXYCODONE/APAP 5/325MG COMBO TABLET PO PRN (15:13)
[2017-06-14] MEDS ORDERED: oxyCODONE HCL 5 MG TABLET PO PRN ×2 (15:22→16:47)
[2017-06-14] MEDS ORDERED: ACETAMINOPHEN 325 MG TABLET (FP) PO PRN (15:22)
--- NOTE | 2017-06-14 16:52 | PN ---
Physical Exam: SUBJECTIVE: Patient seen and examined OBJECTIVE: Vital Signs Period Temp Pulse Resp BP Sys/Cxo Pulse Ox Last 24 Hr 97.9 F-98.9 F 86-94 20-28 123-164/66-112 89-98 GENERAL: The patient is awake, alert, and fully oriented, in no acute distress. HEAD: Normal with no signs of trauma. EYES: PERRL, extraocular movements intact, sclera anicteric, conjunctiva clear. No ptosis. ENT: Ears normal, nares patent, oropharynx clear without exudates, moist mucous membranes. NECK: Trachea midline, full range of motion, supple. LUNGS: Breath sounds equal, clear to auscultation bilaterally, no wheezes, no crackles, no accessory muscle use. HEART: Regular rate and rhythm, S1, S2 without murmur, rub or gallop. ABDOMEN: Soft, nontender, nondistended, normoactive bowel sounds, no guarding, no rebound, no hepatosplenomegaly, no masses. EXTREMITIES: 2+ pulses, warm, well-perfused, no edema. NEUROLOGICAL: Cranial nerves II through XII grossly intact. Normal speech, gait not observed. PSYCH: Normal mood, normal affect. SKIN: Warm, dry, normal turgor, no rashes or lesions noted Laboratory Results - last 24 hr 06/13/17 06/14/17 06/14/17 21:57 01:58 02:45 WBC RBC Hgb Hct MCV MCH MCHC RDW Plt Count MPV Sodium Potassium Chloride Carbon Dioxide Anion Gap BUN Creatinine POC Glucometer 126 173 Random Glucose Calcium Troponin I < 0.02 06/14/17 06/14/17 06/14/17 05:35 05:35 05:48 WBC 2.9 L D RBC 4.23 Hgb 13.5 Hct 41.4 MCV 98.0 H MCH 32.0 MCHC 32.6 RDW 15.0 Plt Count 198 MPV 8.2 Sodium 139 Potassium 4.2 Chloride 101 Carbon Dioxide 33 H Anion Gap 5 L BUN 17 Creatinine 1.0 POC Glucometer 136 Random Glucose 152 H D Calcium 10.3 H Troponin I 06/14/17 06/14/17 11:26 13:40 WBC RBC Hgb Hct MCV MCH MCHC RDW Plt Count MPV Sodium Potassium Chloride Carbon Dioxide Anion Gap BUN Creatinine POC Glucometer 243 250 Random Glucose Calcium Troponin I Active Medications Generic Name Dose Route Start Last Admin Trade Name Freq PRN Reason Stop Dose Admin Acetaminophen 650 mg 06/14/17 13:39 Tylenol - PO Q6H PRN FEVER OR PAIN Acetaminophen 325 mg 06/14/17 15:22 Tylenol - PO Q6H PRN PAIN Albuterol Sulfate 1 amp 06/14/17 11:13 Ventolin 0.083% Nebulizer Soln - NEB Q4H PRN SHORT OF BREATH/WHEEZING Albuterol/Ipratropium 1 amp 06/14/17 00:00 06/14/17 11:00 Duoneb - NEB 1 amp QIDR IVANIA Administration Amlodipine Besylate 10 mg 06/13/17 22:45 06/13/17 22:44 Norvasc - PO 10 mg HS IVANIA Administration Aspirin 81 mg 06/15/17 10:00 Asa - PO Q2D@10 IVANIA Gabapentin 300 mg 06/13/17 23:30 06/13/17 23:23 Neurontin - PO 300 mg HS IVANIA Administration HCTZ/Losartan Potassium 1 tab 06/14/17 10:00 06/14/17 09:55 Hyzaar - PO 1 tab DAILY IVANIA Administration Heparin Sodium (Porcine) 5,000 unit 06/13/17 22:15 06/14/17 13:48 Heparin - SQ 5,000 unit TID IVANIA Administration Insulin Aspart 1 vial 06/14/17 16:30 Novolog Vial Sliding Scale - SQ ACHS [facility] Protocol Levofloxacin 750 mg 06/14/17 06:00 06/14/17 06:06 Levaquin PO 750 mg DAILY@06 IVANIA Administration Melatonin 10 mg 06/13/17 23:30 06/14/17 00:04 Melatonin PO 10 mg HS IVANIA Administration Methylprednisolone Sodium Succinate 40 mg 06/14/17 10:00 06/14/17 09:57 Solu-Medrol - IVPB 40 mg Q8H-IV IVANIA Administration Metoprolol Tartrate 100 mg 06/14/17 10:00 06/14/17 09:55 Lopressor - PO 100 mg DAILY IVANIA Administration Multivitamins/Minerals/Vitamin C 1 tab 06/14/17 10:00 06/14/17 09:55 Tab-A-Vit - PO 1 tab DAILY IVANIA Administration Oxycodone HCl 5 mg 06/14/17 15:22 Roxicodone - PO Q6H PRN PAIN Pantoprazole Sodium 40 mg 06/14/17 10:00 06/14/17 09:55 Protonix - PO 40 mg DAILY IVANIA Administration Polyethylene Glycol 17 gm 06/14/17 10:00 06/14/17 09:59 Miralax (For Daily Use) - PO 17 grams DAILY IVANIA Administration Ranolazine 500 mg 06/14/17 10:00 06/14/17 09:55 Ranexa - PO 500 mg DAILY IVANIA Administration Risperidone 1 mg 06/13/17 23:00 06/13/17 22:56 Risperdal - PO 1 mg HS IVANIA Administration ASSESSMENT/PLAN: 71yo woman who is an active smoker with PMH of COPD, HTN, HLD, TIA, GI Bleed, NIDDM, presents today with moderate hypoxic respiratory distress who is admitted for acute COPD exacerbation monitoring and management. #COPD exacerbation -O2, SpO2 goal >90% -Standing Duoneb 1 amp NEB Q6h -PRN Duoneb 1 amp NEB Q4H -Methylprednisolone 40mg IV Q8H -Levofloxacin decreased to 500mg PO daily -Pulmonology (Dr. Benz) consulted #CHF r/o: last TTE in 2013 (EF 72%, mild concentric LVH); BNP elevated (482.61) -Echo : report pending -troponin: neg X2 -Strict I&Os -Daily weights -Continue home Ranexa 500mg PO BID -Cardiology consult (Dr. Valdez) appreciated. f/u recs #NIDDM -Hold PO diabetes medications -BGM ACHS -ISS ACHS -Continue home Gabapentin 300mg PO HS for diabetic foot neuropathy #HTN -Continue home medications: Amlodipine 10mg PO daily Metoprolol 100mg PO daily Losartan/HCTZ 50/12.5mg 1 tab PO daily #Pain -Oxycodone 5mg PO daily -Acetaminophen 650 PO Q6H PRN #F/E/N -No IVF needed -Electrolytes wnl -Diabetic and Na controlled diet #DVT prophylaxis: moderate risk -b/l SCD's -Heparin 5000U SQ TIB #GI prophylaxis -Continue home Omeprazole 40mg PO daily #Dispo -Admit to Med/Surg -FULL code Comfirmed at home medication list: - Losartan/HTC 50/12.5 once daily - Toprolol 100mg once daily - Metformin 500mg once daily - Glipazide xl 5mg once per day - renexa 500mg twice a day - respiridone 1 mg once per day - omeprazole 40mg once per day - Gabapentin 300 mg at night *previously taking, ventolin 2 puffs q4, Incruse 1 per day, and flonase, is no longer being taken. Visit type - Emergency Visit Emergency Visit: No - New Patient This patient is new to me today: No - Critical Care Critical Care patient: No
[2017-06-14] MEDS: oxyCODONE HCL 5 MG TABLET PO PRN (17:00)
[2017-06-14] MEDS ORDERED: PT OWN MED DRAWER 7, Y5N ONE (21:02)
[2017-06-14] MEDS ORDERED: INSULIN (NOVOLOG) ASPART 100 UNITS/ML 10ML VIAL ONE (21:02)
[2017-06-14] MEDS: amLODIPine BESYLATE 10 MG TABLET (FP) PO SCH (21:09)
[2017-06-14] MEDS: GABAPENTIN 300 MG CAPSULE (FP) PO SCH (21:09)
[2017-06-14] MEDS: risperiDONE 1 MG TABLET (FP) PO SCH (21:09)
[2017-06-15] MEDS: oxyCODONE HCL 5 MG TABLET PO PRN (00:22)
[2017-06-15] MEDS: ALBUTEROL SO4 2.5/IPRATROPIUM 0.5 INH SOL 3 ML VIAL.NEB. NEB SCH ×5 (00:45→17:28)
[2017-06-15] MEDS: methylPREDNISolone NA SUCC 40 MG/1 ML VIAL IVPB SCH ×3 (00:59→17:56)
[2017-06-15] MEDS: HEPARIN NA (PORCINE) 5,000 UNITS/ML 1ML VIAL SQ SCH ×3 (05:23→21:03)
[2017-06-15] MEDS: LEVOFLOXACIN 500 MG TABLET (FP) PO SCH (05:23)
[2017-06-15] MEDS: INSULIN SLIDING SCALE (NOVOLOG) 1 VIAL SQ SCH ×4 (06:25→21:04)
[2017-06-15 07:13] LABS: ANION GAP 8 (8-16); CALCIUM 10.8 mg/dL (8.5-10.1); CO2 33 mmol/L (21-32); CREATININE 1.4 mg/dL (0.55-1.02); GLUCOSE,RANDOM 229 mg/dL (74-106)
[2017-06-15] MEDS ORDERED: PT OWN MED DRAWER 7, Y5N ONE ×2 (09:09→20:49)
--- NOTE | 2017-06-15 09:31 | PN ---
Teaching Attending Note Name of Resident: Enio Martinez ATTENDING PHYSICIAN STATEMENT I saw and evaluated the patient. I reviewed the resident's note and discussed the case with the resident. I agree with the resident's findings and plan as documented. SUBJECTIVE: Patient is comfortable, Alert awake, oriented to place and time. Daughter at bedside. As per daughter one episode of sun downing yesterday. OBJECTIVE: Vital Signs Temperature 98.6 F 06/15/17 08:53 Pulse Rate 110 H 06/15/17 08:53 Respiratory Rate 21 06/15/17 08:53 Blood Pressure 120/61 06/15/17 08:53 O2 Sat by Pulse Oximetry (%) 90 L 06/14/17 21:00 CBCD WBC 2.9 K/mm3 (4.0-10.0) L D 06/14/17 05:35 RBC 4.23 M/mm3 (3.60-5.2) 06/14/17 05:35 Hgb 13.5 GM/dL (10.7-15.3) 06/14/17 05:35 Hct 41.4 % (32.4-45.2) 06/14/17 05:35 MCV 98.0 fl (80-96) H 06/14/17 05:35 MCHC 32.6 g/dl (32.0-36.0) 06/14/17 05:35 RDW 15.0 % (11.6-15.6) 06/14/17 05:35 Plt Count 198 K/MM3 (134-434) 06/14/17 05:35 MPV 8.2 fl (7.5-11.1) 06/14/17 05:35 CMP Sodium 138 mmol/L (136-145) 06/15/17 05:45 Potassium 4.3 mmol/L (3.5-5.1) 06/15/17 05:45 Chloride 97 mmol/L (98-107) L 06/15/17 05:45 Carbon Dioxide 33 mmol/L (21-32) H 06/15/17 05:45 Anion Gap 8 (8-16) 06/15/17 05:45 BUN 35 mg/dL (7-18) H D 06/15/17 05:45 Creatinine 1.4 mg/dL (0.55-1.02) H D 06/15/17 05:45 Creat Clearance w eGFR > 60 (>60) 06/13/17 17:59 Random Glucose 229 mg/dL (74-106) H D 06/15/17 05:45 Calcium 10.8 mg/dL (8.5-10.1) H 06/15/17 05:45 Total Bilirubin 0.4 mg/dL (0.2-1.0) D 06/13/17 17:59 AST 16 U/L (15-37) 06/13/17 17:59 ALT 13 U/L (12-78) D 06/13/17 17:59 Alkaline Phosphatase 74 U/L (45-117) 06/13/17 17:59 Total Protein 6.9 g/dl (6.4-8.2) 06/13/17 17:59 Albumin 3.4 g/dl (3.4-5.0) 06/13/17 17:59 CARDIAC ENZYMES Creatine Kinase 50 IU/L (26-192) 06/13/17 18:20 Troponin I < 0.02 ng/ml (0.00-0.05) 06/14/17 02:45 Current Medications Generic Name Dose Route Start Last Admin Trade Name Freq PRN Reason Stop Dose Admin Acetaminophen 650 mg 06/14/17 13:39 Tylenol - PO Q6H PRN FEVER OR PAIN Acetaminophen 325 mg 06/14/17 15:22 06/15/17 00:22 Tylenol - PO 325 mg Q6H PRN Administration PAIN Albuterol Sulfate 1 amp 06/14/17 11:13 Ventolin 0.083% Nebulizer Soln - NEB Q4H PRN SHORT OF BREATH/WHEEZING Albuterol/Ipratropium 1 amp 06/14/17 00:00 06/15/17 06:42 Duoneb - NEB 1 amp QIDR IVANIA Administration Amlodipine Besylate 10 mg 06/13/17 22:45 06/14/17 21:09 Norvasc - PO 10 mg HS IVANIA Administration Aspirin 81 mg 06/15/17 10:00 Asa - PO Q2D@10 IVANIA Gabapentin 300 mg 06/13/17 23:30 06/14/17 21:09 Neurontin - PO 300 mg HS IVANIA Administration HCTZ/Losartan Potassium 1 tab 06/14/17 10:00 06/14/17 09:55 Hyzaar - PO 1 tab DAILY IVANIA Administration Heparin Sodium (Porcine) 5,000 unit 06/13/17 22:15 06/15/17 05:23 Heparin - SQ 5,000 unit TID IVANIA Administration Insulin Aspart 1 vial 06/14/17 16:30 06/15/17 06:25 Novolog Vial Sliding Scale - SQ 2 units ACHS IVANIA Administration Protocol Levofloxacin 500 mg 06/15/17 06:00 06/15/17 05:23 Levaquin - PO 500 mg DAILY@06 IVANIA Administration Melatonin 10 mg 06/13/17 23:30 06/14/17 21:09 Melatonin PO 10 mg HS IVANIA Administration Methylprednisolone Sodium Succinate 40 mg 06/14/17 10:00 06/15/17 00:59 Solu-Medrol - IVPB 40 mg Q8H-IV IVANIA Administration Metoprolol Tartrate 100 mg 06/14/17 10:00 06/14/17 09:55 Lopressor - PO 100 mg DAILY IVANIA Administration Multivitamins/Minerals/Vitamin C 1 tab 06/14/17 10:00 06/14/17 09:55 Tab-A-Vit - PO 1 tab DAILY IVANIA Administration Oxycodone HCl 5 mg 06/14/17 17:00 06/15/17 00:22 Roxicodone - PO 5 mg Q6HPO PRN Administration PAIN Pantoprazole Sodium 40 mg 06/14/17 10:00 06/14/17 09:55 Protonix - PO 40 mg DAILY IVANIA Administration Polyethylene Glycol 17 gm 06/14/17 10:00 06/14/17 09:59 Miralax (For Daily Use) - PO 17 grams DAILY IVANIA Administration Ranolazine 500 mg 06/14/17 10:00 06/14/17 09:55 Ranexa - PO 500 mg DAILY IVANIA Administration Risperidone 1 mg 06/13/17 23:00 06/14/17 21:09 Risperdal - PO 1 mg HS IVANIA Administration Home Medications Medication Instructions Recorded Glipizide [Glipizide ER] 5 mg PO DAILY 04/30/15 Metformin HCl [Metformin HCl ER] 500 mg PO DAILY 04/30/15 Metoprolol Tartrate 100 mg PO DAILY 04/30/15 Omeprazole [Prilosec (RX)] 40 mg PO DAILY 04/30/15 Losartan/Hydrochlorothiazide 1 each PO DAILY #0 tablet 05/05/15 [Hyzaar 50-12.5 Tablet] Ranolazine [Ranexa -] 500 mg PO BID 04/01/16 Gabapentin [Neurontin] 300 mg PO HS 06/13/17 Risperidone [Risperdal] 1 mg PO HS 06/13/17 PE: per resident's note ASSESSMENT AND PLAN: 71yo F wtih PMHx TIA, HTN, AAA, DM, COPD presented to the ER with SOB and productive cough. # s/p Acute hypoxic respiratory failure due to COPD exacerbation- ON Solu medrol IV, levaquin day 2 . supplemental oxygen to maintain spO2>90%. nebs prn # Possible CHF- has some pedal edema, unable to appreciate crackles. echo is pending. will f/u. received lasix yesterday. will continue lasix IV x total of 3 doses # T2DM on sliding scale continue # HTN- controlled. cont current management # Sun downing as per daughter, as per resident after taking a pain medication( Percocet) . therefore will discontinue Percocet for now. Will get Psych. consult DVT ppx- hep sq
[2017-06-15] MEDS: METOPROLOL TARTRATE 50 MG TABLET (FP) PO SCH (09:43)
[2017-06-15] MEDS: LOSARTAN 50MG/HCTZ 12.5MG 1 TAB (FP) PO SCH (09:43)
[2017-06-15] MEDS: MULTIVITAMINS (DAILY MVI) TABLET (FP) PO SCH (09:43)
[2017-06-15] MEDS: PANTOPRAZOLE 40 MG TABLET (FP) PO SCH (09:44)
[2017-06-15] MEDS: POLYETHYLENE GLYCOL 3350 119 GM BTL PO SCH (09:44)
[2017-06-15] MEDS: RANOLAZINE E.R. 500 MG TABLET (FP) PO SCH (09:44)
[2017-06-15] MEDS ORDERED: ASPIRIN 81 MG CHEWABLE TABLETS PO SCH (10:00)
[2017-06-15] MEDS ORDERED: SODIUM CHLORIDE 1,000 ML IV SCH (11:30)
[2017-06-15] MEDS: ACETAMINOPHEN 325 MG TABLET (FP) PO PRN (12:43)
--- NOTE | 2017-06-15 14:49 | EKG ---
Test Reason : Blood Pressure : / mmHG Vent. Rate : 087 BPM Atrial Rate : 087 BPM P-R Int : 166 ms QRS Dur : 136 ms QT Int : 398 ms P-R-T Axes : 067 -85 -10 degrees QTc Int : 478 ms NORMAL SINUS RHYTHM POSSIBLE LEFT ATRIAL ENLARGEMENT RIGHT BUNDLE BRANCH BLOCK LEFT ANTERIOR FASCICULAR BLOCK BIFASCICULAR BLOCK INFERIOR INFARCT , AGE UNDETERMINED ABNORMAL ECG WHEN COMPARED WITH ECG OF 17-DEC-2016 16:41, INFERIOR INFARCT IS NOW PRESENT Confirmed by MARISSA KRISHNAMURTHY, NEVIN ([id number]) on 06/15/2017 2:48:48 PM Referred By: Confirmed By:NEVIN ANN MD
--- NOTE | 2017-06-15 15:41 | PN ---
Progress Note, Physician History of Present Illness: Sundowned overnight, dyspnea and cough improving. - Current Medication List Current Medications: Active Medications Acetaminophen (Tylenol -) 650 mg PO Q6H PRN PRN Reason: FEVER OR PAIN Last Admin: 06/15/17 12:43 Dose: 650 mg Acetaminophen (Tylenol -) 325 mg PO Q6H PRN PRN Reason: PAIN Last Admin: 06/15/17 00:22 Dose: 325 mg Albuterol Sulfate (Ventolin 0.083% Nebulizer Soln -) 1 amp NEB Q4H PRN PRN Reason: SHORT OF BREATH/WHEEZING Albuterol/Ipratropium (Duoneb -) 1 amp NEB QIDR [facility] Last Admin: 06/15/17 11:01 Dose: 1 amp Amlodipine Besylate (Norvasc -) 10 mg PO [facility] Last Admin: 06/14/17 21:09 Dose: 10 mg Aspirin (Asa -) 81 mg PO Q2D@10 [facility] Last Admin: 06/15/17 09:44 Dose: 81 mg Gabapentin (Neurontin -) 300 mg PO [facility] Last Admin: 06/14/17 21:09 Dose: 300 mg HCTZ/Losartan Potassium (Hyzaar -) 1 tab PO DAILY [facility] Last Admin: 06/15/17 09:43 Dose: 1 tab Heparin Sodium (Porcine) (Heparin -) 5,000 unit SQ TID [facility] Last Admin: 06/15/17 05:23 Dose: 5,000 unit Sodium Chloride (Normal Saline -) 1,000 mls @ 75 mls/hr IV ASDIR [facility] Last Admin: 06/15/17 14:12 Dose: 75 mls/hr Insulin Aspart (Novolog Vial Sliding Scale -) 1 vial SQ ACHS [facility] PRN Reason: Protocol Last Admin: 06/15/17 11:30 Dose: 2 units Levofloxacin (Levaquin -) 500 mg PO DAILY@06 [facility] Last Admin: 06/15/17 05:23 Dose: 500 mg Melatonin (Melatonin) 10 mg PO [facility] Last Admin: 06/14/17 21:09 Dose: 10 mg Methylprednisolone Sodium Succinate (Solu-Medrol -) 40 mg IVPB Q8H-IV [facility] Last Admin: 06/15/17 09:43 Dose: 40 mg Metoprolol Tartrate (Lopressor -) 100 mg PO DAILY [facility] Last Admin: 06/15/17 09:43 Dose: 100 mg Multivitamins/Minerals/Vitamin C (Tab-A-Vit -) 1 tab PO DAILY [facility] Last Admin: 06/15/17 09:43 Dose: 1 tab Pantoprazole Sodium (Protonix -) 40 mg PO DAILY [facility] Last Admin: 06/15/17 09:44 Dose: 40 mg Polyethylene Glycol (Miralax (For Daily Use) -) 17 gm PO DAILY [facility] Last Admin: 06/15/17 09:44 Dose: 17 grams Ranolazine (Ranexa -) 500 mg PO DAILY [facility] Last Admin: 06/15/17 09:44 Dose: 500 mg Risperidone (Risperdal -) 1 mg PO HS [facility] Last Admin: 06/14/17 21:09 Dose: 1 mg - Objective Vital Signs: Vital Signs Temperature 97.9 F 06/15/17 14:36 Pulse Rate 86 06/15/17 14:36 Respiratory Rate 21 06/15/17 08:53 Blood Pressure 122/66 06/15/17 14:36 O2 Sat by Pulse Oximetry (%) 90 L 06/14/17 21:00 Constitutional: Yes: No Distress, Calm Neck: Yes: Supple Cardiovascular: Yes: Regular Rate and Rhythm Respiratory: Yes: Regular, Diminished, On Nasal O2 Gastrointestinal: Yes: Normal Bowel Sounds, Soft Edema: No Labs: CBC, BMP 06/14/17 05:35 06/15/17 05:45 Problem List - Problems (1) CAD (coronary artery disease) Code(s): I25.10 - ATHSCL HEART DISEASE OF [place] CORONARY ARTERY W/O ANG PCTRS Qualifiers: Coronary Disease-Associated Artery/Lesion type: [place] artery [place] vs. transplanted heart: [place] heart Associated angina: without angina Qualified Code(s): I25.10 - Atherosclerotic heart disease of [place] coronary artery without angina pectoris (2) COPD exacerbation Code(s): J44.1 - CHRONIC OBSTRUCTIVE PULMONARY DISEASE W (ACUTE) EXACERBATION (3) Rheumatoid arthritis Code(s): M06.9 - RHEUMATOID ARTHRITIS, UNSPECIFIED Qualifiers: Rheumatoid arthritis location: unspecified site Rheumatoid factor presence: unspecified presence Qualified Code(s): M06.9 - Rheumatoid arthritis, unspecified (4) Right bundle branch block (RBBB) Code(s): I45.10 - UNSPECIFIED RIGHT BUNDLE-BRANCH BLOCK (5) CVA (cerebral vascular accident) Code(s): I63.9 - CEREBRAL INFARCTION, UNSPECIFIED (6) Diabetes mellitus Code(s): E11.9 - TYPE 2 DIABETES MELLITUS WITHOUT COMPLICATIONS Qualifiers: Diabetes mellitus type: type 2 Diabetes mellitus complication status: without complication Diabetes mellitus correction insulin use: without correction use Qualified Code(s): E11.9 - Type 2 diabetes mellitus without complications (7) Hypertension Code(s): I10 - ESSENTIAL (PRIMARY) HYPERTENSION Qualifiers: Hypertension type: essential hypertension Qualified Code(s): I10 - Essential (primary) hypertension (8) Acute kidney injury Code(s): N17.9 - ACUTE KIDNEY FAILURE, UNSPECIFIED (9) Acute on chronic respiratory failure with hypoxia and hypercapnia Code(s): J96.21 - ACUTE AND CHRONIC RESPIRATORY FAILURE WITH HYPOXIA J96.22 - ACUTE AND CHRONIC RESPIRATORY FAILURE WITH HYPERCAPNIA Assessment/Plan 06/14/2017 Echo: Normal LV size and fxn, abnl LV compliance, mild ao dilatation, no sig valve abnl 1. Post acute on chronic hypercapneic, hypoxemic respiratory failure with improving COPD exacerbation 2. Coronary artery disease with obstructive RCA and RPDA, angina pectoris 3. Hypertension/hypertensive cardiovascular disease 4. Type 2 diabetes mellitus 5. Ascending thoracic aortic aneurysm 6. History of rheumatoid arthritis 7. Right bundle branch block 8. Previous history of GI bleed 9. Neutropenia 10 PLACIDO PLAN: 1. Continue empiric antibiotic coverage 2. Continue bronchodilator, nebulizer, IV steroid taper, O2 as needed 3. Continue ASA 81 qd, Metoprolol 100 qd, Hyzaar 1 qd, Amlodipine 10 qd and Ranexa 500 qd as tolerated 4. Continue DVT and GI prophylaxis
--- NOTE | 2017-06-15 16:06 | PN ---
Physical Exam: SUBJECTIVE: Patient seen and examined at bedside. Per the nurse, yesterday evening, pt was slightly disoriented. Pt states she vomited once overnight, but denies nausea at this time. There was no blood. No other complaints. Pt denies headache, cp, sob, abd pain, diarrhea, dysuria. OBJECTIVE: Vital Signs Period Temp Pulse Resp BP Sys/Cox Pulse Ox Last 24 Hr 97.7 F-99.1 F 86-110 20-22 120-154/61-82 90 GENERAL: The patient is awake, alert, and fully oriented, in no acute distress. AAOx3 HEAD: Normal with no signs of trauma. EYES: sclera anicteric, conjunctiva clear. No ptosis. ENT: oropharynx clear without exudates, moist mucous membranes. NECK: Trachea midline, full range of motion, supple. LUNGS: diffuse wheezes, no crackles, no accessory muscle use. HEART: Regular rate and rhythm, normal S1, S2 without murmur, rub or gallop. ABDOMEN: Soft, nontender, nondistended, normoactive bowel sounds, no guarding, no rebound, no hepatosplenomegaly, no masses. EXTREMITIES: 2+ pulses, warm, well-perfused, no edema. NEUROLOGICAL: Cranial nerves II through XII grossly intact. Normal speech, gait not observed. PSYCH: Normal mood, normal affect. SKIN: Warm, dry, normal turgor, no rashes or lesions noted Laboratory Results - last 24 hr 06/14/17 06/14/17 06/15/17 16:58 21:05 05:45 Sodium Potassium Chloride Carbon Dioxide Anion Gap BUN Creatinine POC Glucometer 181 244 Random Glucose Hemoglobin A1c % 5.5 Calcium 06/15/17 06/15/17 06/15/17 05:45 06:23 11:02 Sodium 138 Potassium 4.3 Chloride 97 L Carbon Dioxide 33 H Anion Gap 8 BUN 35 H D Creatinine 1.4 H D POC Glucometer 247 214 Random Glucose 229 H D Hemoglobin A1c % Calcium 10.8 H Active Medications Generic Name Dose Route Start Last Admin Trade Name Freq PRN Reason Stop Dose Admin Acetaminophen 650 mg 06/14/17 13:39 06/15/17 12:43 Tylenol - PO 650 mg Q6H PRN Administration FEVER OR PAIN Acetaminophen 325 mg 06/14/17 15:22 06/15/17 00:22 Tylenol - PO 325 mg Q6H PRN Administration PAIN Albuterol Sulfate 1 amp 06/14/17 11:13 Ventolin 0.083% Nebulizer Soln - NEB Q4H PRN SHORT OF BREATH/WHEEZING Albuterol/Ipratropium 1 amp 06/14/17 00:00 06/15/17 11:01 Duoneb - NEB 1 amp QIDR IVANIA Administration Amlodipine Besylate 10 mg 06/13/17 22:45 06/14/17 21:09 Norvasc - PO 10 mg HS IVANIA Administration Aspirin 81 mg 06/15/17 10:00 06/15/17 09:44 Asa - PO 81 mg Q2D@10 IVANIA Administration Gabapentin 300 mg 06/13/17 23:30 06/14/17 21:09 Neurontin - PO 300 mg HS IVANIA Administration HCTZ/Losartan Potassium 1 tab 06/14/17 10:00 06/15/17 09:43 Hyzaar - PO 1 tab DAILY IVANIA Administration Heparin Sodium (Porcine) 5,000 unit 06/13/17 22:15 06/15/17 05:23 Heparin - SQ 5,000 unit TID IVANIA Administration Sodium Chloride 1,000 mls @ 75 mls/hr 06/15/17 11:30 06/15/17 14:12 Normal Saline - IV 75 mls/hr ASDIR IVANIA Administration Insulin Aspart 1 vial 06/14/17 16:30 06/15/17 11:30 Novolog Vial Sliding Scale - SQ 2 units ACHS IVANIA Administration Protocol Levofloxacin 500 mg 06/15/17 06:00 06/15/17 05:23 Levaquin - PO 500 mg DAILY@06 IVANIA Administration Melatonin 10 mg 06/13/17 23:30 06/14/17 21:09 Melatonin PO 10 mg HS IVANIA Administration Methylprednisolone Sodium Succinate 40 mg 06/14/17 10:00 06/15/17 09:43 Solu-Medrol - IVPB 40 mg Q8H-IV IVANIA Administration Metoprolol Tartrate 100 mg 06/14/17 10:00 06/15/17 09:43 Lopressor - PO 100 mg DAILY IVANIA Administration Multivitamins/Minerals/Vitamin C 1 tab 06/14/17 10:00 06/15/17 09:43 Tab-A-Vit - PO 1 tab DAILY IVANIA Administration Pantoprazole Sodium 40 mg 06/14/17 10:00 06/15/17 09:44 Protonix - PO 40 mg DAILY IVANIA Administration Polyethylene Glycol 17 gm 06/14/17 10:00 06/15/17 09:44 Miralax (For Daily Use) - PO 17 grams DAILY IVANIA Administration Ranolazine 500 mg 06/14/17 10:00 06/15/17 09:44 Ranexa - PO 500 mg DAILY IVANIA Administration Risperidone 1 mg 06/13/17 23:00 06/14/17 21:09 Risperdal - PO 1 mg HS IVANIA Administration ASSESSMENT/PLAN: 71yo woman who is an active smoker with PMH of COPD, HTN, HLD, TIA, GI Bleed, NIDDM, presents today with moderate hypoxic respiratory distress who is admitted for acute COPD exacerbation monitoring and management. #COPD exacerbation -O2, SpO2 goal >90% -Standing Duoneb 1 amp NEB Q6h -PRN Duoneb 1 amp NEB Q4H -Methylprednisolone 40mg IV Q8H -Levofloxacin decreased to 500mg PO daily -Pulmonology (Dr. James) recs appreciated #CHF r/o: last TTE in 2013 (EF 72%, mild concentric LVH); BNP elevated (482.61) -Echo: impaired LV relaxation -troponin: neg X2 -Strict I&Os -Daily weights -Continue home Ranexa 500mg PO BID -Cardiology (Dr. Valdez) appreciated #PLACIDO -Sample Worker increased from 1.0 to 1.4 -NS @75 started #Confusion -Psych (Dr. Wills) consult appreciated #NIDDM -Hold PO diabetes medications -BGM ACHS -ISS ACHS -Continue home Gabapentin 300mg PO HS for diabetic foot neuropathy #HTN -Continue home medications: Amlodipine 10mg PO daily Metoprolol 100mg PO daily Losartan/HCTZ 50/12.5mg 1 tab PO daily #Pain -Acetaminophen 650 PO Q6H PRN -D/C'ed Oxycodone 5mg PO daily due to confusion #F/E/N -gentle hydration, NS @ 75 -Electrolytes wnl -Diabetic and Na controlled diet #DVT prophylaxis: moderate risk -b/l SCD's -Heparin 5000U SQ TIB #GI prophylaxis -Continue home Omeprazole 40mg PO daily #Dispo -Admit to Med/Surg -FULL code Visit type - Emergency Visit Emergency Visit: No - New Patient This patient is new to me today: No - Critical Care Critical Care patient: No - Discharge Referral Referred to [facility] Med P.C[facility] No
[2017-06-15] MEDS ORDERED: INSULIN (NOVOLOG) ASPART 100 UNITS/ML 10ML VIAL ONE ×2 (17:09→21:25)
[2017-06-15] MEDS ORDERED: traMADol HCL 50 MG TABLET PO ONE (17:40)
[2017-06-15] MEDS: risperiDONE 1 MG TABLET (FP) PO SCH (21:03)
[2017-06-15] MEDS: MELATONIN 5 MG TABLETS PO SCH (21:03)
[2017-06-15] MEDS: GABAPENTIN 300 MG CAPSULE (FP) PO SCH (21:03)
[2017-06-15] MEDS: amLODIPine BESYLATE 10 MG TABLET (FP) PO SCH (21:03)
[2017-06-16] MEDS: ALBUTEROL SO4 2.5/IPRATROPIUM 0.5 INH SOL 3 ML VIAL.NEB. NEB SCH ×3 (00:15→11:43)
[2017-06-16] MEDS: methylPREDNISolone NA SUCC 40 MG/1 ML VIAL IVPB SCH ×2 (01:32→09:16)
[2017-06-16] MEDS: ACETAMINOPHEN 325 MG TABLET (FP) PO PRN ×2 (01:39→07:43)
[2017-06-16] MEDS: HEPARIN NA (PORCINE) 5,000 UNITS/ML 1ML VIAL SQ SCH (05:59)
[2017-06-16] MEDS: LEVOFLOXACIN 500 MG TABLET (FP) PO SCH (06:00)
[2017-06-16] MEDS: INSULIN SLIDING SCALE (NOVOLOG) 1 VIAL SQ SCH ×2 (06:01→11:35)
[2017-06-16 07:16] LABS: ANION GAP 6 (8-16); CO2 32 mmol/L (21-32); CREATININE 0.9 mg/dL (0.55-1.02); GLUCOSE,RANDOM 172 mg/dL (74-106)
[2017-06-16 07:24] LABS: BASOPHIL 0.1 % (0-2.0); MCH 31.9 pg (25.7-33.7); MCHC 32.5 g/dl (32.0-36.0); MEAN PLT VOLUME 8.5 fl (7.5-11.1); NEUTROPHILS 92.2 % (42.8-82.8); PLATELET COUNT 211 K/MM3 (134-434); RDW 15.3 % (11.6-15.6); WHITE BLOOD COUNT 5.6 K/mm3 (4.0-10.0)
[2017-06-16 07:25] LABS: THYROID STIMULATING HORMONE 0.91 uIU/ml (0.358-3.74)
[2017-06-16 07:56] VITALS: BP 125/75; TEMP 97.7
[2017-06-16] MEDS: LOSARTAN 50MG/HCTZ 12.5MG 1 TAB (FP) PO SCH (09:15)
[2017-06-16] MEDS: METOPROLOL TARTRATE 50 MG TABLET (FP) PO SCH (09:15)
[2017-06-16] MEDS: PANTOPRAZOLE 40 MG TABLET (FP) PO SCH (09:15)
[2017-06-16] MEDS: MULTIVITAMINS (DAILY MVI) TABLET (FP) PO SCH (09:15)
[2017-06-16] MEDS: RANOLAZINE E.R. 500 MG TABLET (FP) PO SCH (09:15)
[2017-06-16] MEDS: POLYETHYLENE GLYCOL 3350 119 GM BTL PO SCH (09:16)
--- NOTE | 2017-06-16 10:24 | PN ---
Progress Note, Physician Chief Complaint: Not in distress Less SOB Ambulating History of Present Illness: Patient was seen and examined. Awake and alert. Chart was reviewed Denies chest pain or palpitations Receiving physical therapy and ambulating Intermittent cough but less SOB - Current Medication List Current Medications: Active Medications Acetaminophen (Tylenol -) 650 mg PO Q6H PRN PRN Reason: FEVER OR PAIN Last Admin: 06/16/17 07:43 Dose: 650 mg Acetaminophen (Tylenol -) 325 mg PO Q6H PRN PRN Reason: PAIN Last Admin: 06/15/17 00:22 Dose: 325 mg Albuterol Sulfate (Ventolin 0.083% Nebulizer Soln -) 1 amp NEB Q4H PRN PRN Reason: SHORT OF BREATH/WHEEZING Albuterol/Ipratropium (Duoneb -) 1 amp NEB QIDR [facility] Last Admin: 06/16/17 06:27 Dose: 1 amp Amlodipine Besylate (Norvasc -) 10 mg PO HS [facility] Last Admin: 06/15/17 21:03 Dose: 10 mg Aspirin (Asa -) 81 mg PO Q2D@10 [facility] Last Admin: 06/15/17 09:44 Dose: 81 mg Gabapentin (Neurontin -) 300 mg PO HS [facility] Last Admin: 06/15/17 21:03 Dose: 300 mg HCTZ/Losartan Potassium (Hyzaar -) 1 tab PO DAILY [facility] Last Admin: 06/16/17 09:15 Dose: 1 tab Heparin Sodium (Porcine) (Heparin -) 5,000 unit SQ TID [facility] Last Admin: 06/16/17 05:59 Dose: 5,000 unit Sodium Chloride (Normal Saline -) 1,000 mls @ 75 mls/hr IV ASDIR [facility] Last Admin: 06/15/17 14:12 Dose: 75 mls/hr Insulin Aspart (Novolog Vial Sliding Scale -) 1 vial SQ ACHS [facility] PRN Reason: Protocol Last Admin: 06/16/17 06:01 Dose: Not Given Levofloxacin (Levaquin -) 500 mg PO DAILY@06 [facility] Last Admin: 06/16/17 06:00 Dose: 500 mg Melatonin (Melatonin) 10 mg PO HS [facility] Last Admin: 06/15/17 21:03 Dose: 10 mg Methylprednisolone Sodium Succinate (Solu-Medrol -) 40 mg IVPB Q8H-IV [facility] Last Admin: 06/16/17 09:16 Dose: 40 mg Metoprolol Tartrate (Lopressor -) 100 mg PO DAILY [facility] Last Admin: 06/16/17 09:15 Dose: 100 mg Multivitamins/Minerals/Vitamin C (Tab-A-Vit -) 1 tab PO DAILY [facility] Last Admin: 06/16/17 09:15 Dose: 1 tab Pantoprazole Sodium (Protonix -) 40 mg PO DAILY [facility] Last Admin: 06/16/17 09:15 Dose: 40 mg Polyethylene Glycol (Miralax (For Daily Use) -) 17 gm PO DAILY [facility] Last Admin: 06/16/17 09:16 Dose: 17 grams Ranolazine (Ranexa -) 500 mg PO DAILY [facility] Last Admin: 06/16/17 09:15 Dose: 500 mg Risperidone (Risperdal -) 1 mg PO HS [facility] Last Admin: 06/15/17 21:03 Dose: 1 mg - Objective Vital Signs: Vital Signs Temperature 97.7 F 06/16/17 07:55 Pulse Rate 95 H 06/16/17 07:55 Respiratory Rate 20 06/16/17 07:55 Blood Pressure 125/75 06/16/17 07:55 O2 Sat by Pulse Oximetry (%) 100 06/15/17 21:00 Neck: Yes: Supple Cardiovascular: Yes: Regular Rate and Rhythm, S1, S2. No: Murmur Respiratory: Yes: Diminished Gastrointestinal: Yes: Normal Bowel Sounds, Soft. No: Tenderness Edema: No Additional Findings/Remarks: - Review of Systems Constitutional: denies: Chills, Fever Cardiovascular: reports: Shortness of Breath. denies: Chest Pain, Palpitations Respiratory: reports: Cough, SOB. denies: Hemoptysis, Orthopnea, PND Gastrointestinal: denies: Abdominal Pain, Constipation, Diarrhea, Melena, Nausea , Rectal Bleeding, Vomiting Genitourinary: denies: Dysuria Musculoskeletal: denies: Joint Pain Neurological: denies: Dizziness, Headache, Seizure, Syncope, Weakness Labs: CBC, BMP 06/16/17 06:05 06/16/17 06:05 Problem List - Problems (1) COPD exacerbation Code(s): J44.1 - CHRONIC OBSTRUCTIVE PULMONARY DISEASE W (ACUTE) EXACERBATION (2) Chest pain Code(s): R07.9 - CHEST PAIN, UNSPECIFIED Qualifiers: Chest pain type: unspecified Qualified Code(s): R07.9 - Chest pain, unspecified (3) Diabetes mellitus Code(s): E11.9 - TYPE 2 DIABETES MELLITUS WITHOUT COMPLICATIONS Qualifiers: Diabetes mellitus type: type 2 Diabetes mellitus complication status: without complication Diabetes mellitus intermission coordinator insulin use: without correction use Qualified Code(s): E11.9 - Type 2 diabetes mellitus without complications (4) Hypertension Code(s): I10 - ESSENTIAL (PRIMARY) HYPERTENSION Qualifiers: Hypertension type: essential hypertension Qualified Code(s): I10 - Essential (primary) hypertension (5) CAD (coronary artery disease) Code(s): I25.10 - ATHSCL HEART DISEASE OF [place] CORONARY ARTERY W/O ANG PCTRS Qualifiers: Coronary Disease-Associated Artery/Lesion type: [place] artery [place] vs. transplanted heart: [place] heart Associated angina: without angina Qualified Code(s): I25.10 - Atherosclerotic heart disease of [place] coronary artery without angina pectoris (6) Rheumatoid arthritis Code(s): M06.9 - RHEUMATOID ARTHRITIS, UNSPECIFIED Qualifiers: Rheumatoid arthritis location: unspecified site Rheumatoid factor presence: unspecified presence Qualified Code(s): M06.9 - Rheumatoid arthritis, unspecified (7) Right bundle branch block (RBBB) Code(s): I45.10 - UNSPECIFIED RIGHT BUNDLE-BRANCH BLOCK Assessment/Plan 1. Shortness of breath and productive cough suggests COPD exacerbation - no prior history of LV failure 2. Coronary artery disease with obstructive RCA and RPDA, angina pectoris 3. Hypertension/hypertensive cardiovascular disease 4. Type 2 diabetes mellitus 5. Ascending thoracic aortic aneurysm 6. History of rheumatoid arthritis 7. Right bundle branch block 8. Previous history of GI bleed 9. Neutropenia PLAN: 1. Continue empiric antibiotic coverage 2. Continue bronchodilator, nebulizer and steroid taper 3. Continue Metoprolol, Hyzaar, Amlodipine and Ranexa as tolerated 4. Continue ASA 5. Continue GI prophylaxis 6. Echocardiography revealed normal left ventricular systolic function, mild [place] , probable LV diastolic dysfunction with impaired relaxation Further plans are to follow Neto Valdez MD
--- NOTE | 2017-06-16 10:36 | PN ---
Progress Note (short form) - Note Progress Note: PULMONARY States breathing much improved. Denies cough or wheezing. Walking with physical therapy. Last Vital Signs Temp Pulse Resp BP Pulse Ox 97.7 F 95 H 20 125/75 100 06/16/17 07:55 06/16/17 07:55 06/16/17 07:55 06/16/17 07:55 06/15/17 21:00 Gen: NAD at rest Heart: RRR Lung: distant breath sounds but no wheezes appreciated Abd: soft, nontender Ext: no edema CBC, BMP 06/16/17 06:05 06/16/17 06:05 Active Medications Acetaminophen (Tylenol -) 650 mg PO Q6H PRN PRN Reason: FEVER OR PAIN Last Admin: 06/16/17 07:43 Dose: 650 mg Acetaminophen (Tylenol -) 325 mg PO Q6H PRN PRN Reason: PAIN Last Admin: 06/15/17 00:22 Dose: 325 mg Albuterol Sulfate (Ventolin 0.083% Nebulizer Soln -) 1 amp NEB Q4H PRN PRN Reason: SHORT OF BREATH/WHEEZING Albuterol/Ipratropium (Duoneb -) 1 amp NEB QIDR IVANIA Last Admin: 06/16/17 06:27 Dose: 1 amp Amlodipine Besylate (Norvasc -) 10 mg PO HS [facility] Last Admin: 06/15/17 21:03 Dose: 10 mg Aspirin (Asa -) 81 mg PO Q2D@10 IVANIA Last Admin: 06/15/17 09:44 Dose: 81 mg Gabapentin (Neurontin -) 300 mg PO HS [facility] Last Admin: 06/15/17 21:03 Dose: 300 mg HCTZ/Losartan Potassium (Hyzaar -) 1 tab PO DAILY [facility] Last Admin: 06/16/17 09:15 Dose: 1 tab Heparin Sodium (Porcine) (Heparin -) 5,000 unit SQ TID IVANIA Last Admin: 06/16/17 05:59 Dose: 5,000 unit Sodium Chloride (Normal Saline -) 1,000 mls @ 75 mls/hr IV ASDIR [facility] Last Admin: 06/15/17 14:12 Dose: 75 mls/hr Insulin Aspart (Novolog Vial Sliding Scale -) 1 vial SQ ACHS IVANIA PRN Reason: Protocol Last Admin: 06/16/17 06:01 Dose: Not Given Levofloxacin (Levaquin -) 500 mg PO DAILY@06 [facility] Last Admin: 06/16/17 06:00 Dose: 500 mg Melatonin (Melatonin) 10 mg PO HS [facility] Last Admin: 06/15/17 21:03 Dose: 10 mg Methylprednisolone Sodium Succinate (Solu-Medrol -) 40 mg IVPB Q8H-IV [facility] Last Admin: 06/16/17 09:16 Dose: 40 mg Metoprolol Tartrate (Lopressor -) 100 mg PO DAILY [facility] Last Admin: 06/16/17 09:15 Dose: 100 mg Multivitamins/Minerals/Vitamin C (Tab-A-Vit -) 1 tab PO DAILY [facility] Last Admin: 06/16/17 09:15 Dose: 1 tab Pantoprazole Sodium (Protonix -) 40 mg PO DAILY [facility] Last Admin: 06/16/17 09:15 Dose: 40 mg Polyethylene Glycol (Miralax (For Daily Use) -) 17 gm PO DAILY [facility] Last Admin: 06/16/17 09:16 Dose: 17 grams Ranolazine (Ranexa -) 500 mg PO DAILY [facility] Last Admin: 06/16/17 09:15 Dose: 500 mg Risperidone (Risperdal -) 1 mg PO HS [facility] Last Admin: 06/15/17 21:03 Dose: 1 mg A/P Acute COPD Exacerbation Acute Hypoxic Respiratory Failure improving Likely Chronic Hypercapneic Respiratory Failure HTN DM - can change steroids to PO and taper as outpt - inhaled bronchodilators standing and PRN - O2 to keep SpO2 >90% - ordered ambulatory SpO2 on room air to assess for home O2 - on empiric antibiotics - outpt PFTs and PSG to evaluate etiology of chronic hypercapnea - DVT prophylaxis - can be discharged from pulmonary standpoint, will need to check room air SpO2 prior to discharge Problem List - Problems (1) COPD exacerbation Code(s): J44.1 - CHRONIC OBSTRUCTIVE PULMONARY DISEASE W (ACUTE) EXACERBATION (2) Diabetes mellitus Code(s): E11.9 - TYPE 2 DIABETES MELLITUS WITHOUT COMPLICATIONS Qualifiers: Diabetes mellitus type: type 2 Diabetes mellitus complication status: without complication Diabetes mellitus intermediate manager insulin use: without intermediate manager use Qualified Code(s): E11.9 - Type 2 diabetes mellitus without complications (3) Hypertension Code(s): I10 - ESSENTIAL (PRIMARY) HYPERTENSION Qualifiers: Hypertension type: essential hypertension Qualified Code(s): I10 - Essential (primary) hypertension
[2017-06-16 11:44] VITALS: PULSE 102
--- NOTE | 2017-06-16 14:46 | PN ---
Teaching Attending Note Name of Resident: Enio Martinez ATTENDING PHYSICIAN STATEMENT I saw and evaluated the patient. I reviewed the resident's note and discussed the case with the resident. I agree with the resident's findings and plan as documented. SUBJECTIVE: Feeling better, no shortness of breath, patient stated that is not smoking anymore. Daughter at bedside. OBJECTIVE: Vital Signs Temperature 97.7 F 06/16/17 07:55 Pulse Rate 102 H 06/16/17 11:43 Respiratory Rate 06/16/17 07:55 Blood Pressure 125/75 06/16/17 07:55 O2 Sat by Pulse Oximetry (%) 90 L 06/16/17 11:43 CBCD WBC 5.6 K/mm3 (4.0-10.0) D 06/16/17 06:05 RBC 4.16 M/mm3 (3.60-5.2) 06/16/17 06:05 Hgb 13.3 GM/dL (10.7-15.3) 06/16/17 06:05 Hct 40.8 % (32.4-45.2) 06/16/17 06:05 MCV 98.0 fl (80-96) H 06/16/17 06:05 MCHC 32.5 g/dl (32.0-36.0) 06/16/17 06:05 RDW 15.3 % (11.6-15.6) 06/16/17 06:05 Plt Count 211 K/MM3 (134-434) 06/16/17 06:05 MPV 8.5 fl (7.5-11.1) 06/16/17 06:05 CMP Sodium 140 mmol/L (136-145) 06/16/17 06:05 Potassium 4.3 mmol/L (3.5-5.1) 06/16/17 06:05 Chloride 102 mmol/L (98-107) 06/16/17 06:05 Carbon Dioxide 32 mmol/L (21-32) 06/16/17 06:05 Anion Gap 6 (8-16) L 06/16/17 06:05 BUN 28 mg/dL (7-18) H 06/16/17 06:05 Creatinine 0.9 mg/dL (0.55-1.02) D 06/16/17 06:05 Creat Clearance w eGFR > 60 (>60) 06/13/17 17:59 Random Glucose 172 mg/dL (74-106) H D 06/16/17 06:05 Calcium 11.0 mg/dL (8.5-10.1) H 06/16/17 06:05 Total Bilirubin 0.4 mg/dL (0.2-1.0) D 06/13/17 17:59 AST 16 U/L (15-37) 06/13/17 17:59 ALT 13 U/L (12-78) D 06/13/17 17:59 Alkaline Phosphatase 74 U/L (45-117) 06/13/17 17:59 Total Protein 6.9 g/dl (6.4-8.2) 06/13/17 17:59 Albumin 3.4 g/dl (3.4-5.0) 06/13/17 17:59 CARDIAC ENZYMES Creatine Kinase 50 IU/L (26-192) 06/13/17 18:20 Troponin I < 0.02 ng/ml (0.00-0.05) 06/14/17 02:45 Home Medications Medication Instructions Recorded Glipizide [Glipizide ER] 5 mg PO DAILY 04/30/15 Metformin HCl [Metformin HCl ER] 500 mg PO DAILY 04/30/15 Metoprolol Tartrate 100 mg PO DAILY 04/30/15 Omeprazole [Prilosec (RX)] 40 mg PO DAILY 04/30/15 Losartan/Hydrochlorothiazide 1 each PO DAILY #0 tablet 05/05/15 [Hyzaar 50-12.5 Tablet] Ranolazine [Ranexa -] 500 mg PO BID 04/01/16 Gabapentin [Neurontin] 300 mg PO HS 06/13/17 Risperidone [Risperdal] 1 mg PO HS 06/13/17 Amlodipine Besylate [Norvasc -] 10 mg PO DAILY #20 tablet 06/16/17 Levofloxacin [Levaquin -] 500 mg PO DAILY #4 tablet 06/16/17 Prednisone [Deltasone] See Taper PO DAILY 12 Days 06/16/17 Tramadol HCl 25 mg PO DAILY 3 Days MDD 1 06/16/17 PE: per resident's note ASSESSMENT AND PLAN: 71yo F wtih PMHx TIA, HTN, AAA, DM, COPD presented to the ER with SOB and productive cough. # s/p Acute hypoxic respiratory failure due to COPD exacerbation improved , patient is being discharged home with home oxygen , prednisone tapered dose and levaquin for 4 more days. supplemental oxygen to maintain spO2>90%. Oxygen is being arranged by the medical social worker. # T2DM continue home meds # HTN- controlled. cont current management # Sun downing due to pain medication (percocet) most likely as reported by her daughter 2 days ago, but was ok with Tramadol so will give her 25mg po qhs for pain prn. DVT ppx- hep sq
--- NOTE | 2017-06-16 15:12 | DS ---
Physical Exam: SUBJECTIVE: Patient seen and examined at bedside. Pt is much improved. No complaints at this time. OBJECTIVE: Vital Signs Period Temp Pulse Resp BP Sys/Cox Pulse Ox Last 24 Hr 97.7 F-98.7 F 89-114 18-20 125-155/68-86 90-100 PHYSICAL EXAM GENERAL: The patient is awake, alert, and fully oriented, in no acute distress. HEAD: Normal with no signs of trauma. EYES: sclera anicteric, conjunctiva clear. ENT: oropharynx clear without exudates, moist mucous membranes. NECK: Trachea midline, full range of motion, supple. LUNGS: Breath sounds equal, clear to auscultation bilaterally, no wheezes, no crackles, no accessory muscle use. HEART: Regular rate and rhythm, normal S1, S2 without murmur, rub or gallop. ABDOMEN: Soft, nontender, nondistended, normoactive bowel sounds, no guarding, no rebound, no hepatosplenomegaly, no masses. EXTREMITIES: 2+ pulses, warm, well-perfused, no edema. NEUROLOGICAL: Cranial nerves II through XII grossly intact. Normal speech, gait not observed. PSYCH: Normal mood, normal affect. SKIN: Warm, dry, normal turgor, no rashes or lesions noted. LABS Laboratory Results - last 24 hr 06/15/17 06/15/17 06/16/17 16:31 21:02 05:38 WBC RBC Hgb Hct MCV MCH MCHC RDW Plt Count MPV Neutrophils % Lymphocytes % Monocytes % Eosinophils % Basophils % Sodium Potassium Chloride Carbon Dioxide Anion Gap BUN Creatinine POC Glucometer 264 171 167 Random Glucose Calcium TSH Free T4 06/16/17 06/16/17 06/16/17 06:05 06:05 11:35 WBC 5.6 D RBC 4.16 Hgb 13.3 Hct 40.8 MCV 98.0 H MCH 31.9 MCHC 32.5 RDW 15.3 Plt Count 211 MPV 8.5 Neutrophils % 92.2 H D Lymphocytes % 4.8 L D Monocytes % 2.9 L Eosinophils % 0.0 D Basophils % 0.1 Sodium 140 Potassium 4.3 Chloride 102 Carbon Dioxide 32 Anion Gap 6 L BUN 28 H Creatinine 0.9 D POC Glucometer 175 Random Glucose 172 H D Calcium 11.0 H TSH 0.91 Free T4 1.20 HOSPITAL COURSE: Date of Admission:06/13/17 Date of Discharge: 06/16/17 71yo woman who is an active smoker with PMH of COPD, HTN, HLD, TIA, GI Bleed, NIDDM, presents today with moderate hypoxic respiratory distress who is admitted for acute COPD exacerbation monitoring and management. The patient's COPD was treated with O2, Duonebs, Methylprednisolone, and Levofloxacin with the help of pulmonology. There was concern for CHF, so an echo was done, which revealed mild concentric LVH and impaired relaxation. Cardiology's recommendations were appreciated. During her stay, the patient had minor PLACIDO which resolved with gentle hydration. The patient had an episode of confusion one evening after receiving percocet. The medication was withdrawn, and symptoms resolved. Her DM was managed with ISS, and she received Gabapentin for foot neuropathy. Her HTN was effectively treated with home medications. The patient was counseled on smoking cessation. The patient is stable for discharge. Minutes to complete discharge: 45 Discharge Summary Reason For Visit: OBSTRUCTIVE CHRONIC BRONCHITIS W/EXACERBATION Current Active Problems Acute kidney injury (Acute) Acute on chronic respiratory failure with hypoxia and hypercapnia (Acute) COPD exacerbation (Acute) Headache (Chronic) Rheumatoid arthritis (Chronic) Right bundle branch block (RBBB) (Chronic) Condition: Improved - Instructions Diet, Activity, Other Instructions: You were admitted to the hospital for diagnosis and treatment of your difficulty breathing (COPD exacerbation). You were seen by the internal medicine team as well as the pulmonlogist. You had some imaging studies done, which aided in your treatment. You are being sent home with home oxygen therapy. You are being sent home with pain medication (Tramadol), which you should take: 25mg in the evening for 3 days. You have an appointment with your PCP in 1 week. It is very important that you take all your prescribed medications as directed. You cannot smoke with home oxygen. Please make sure you follow up with your out patient doctor. If you develop new symptoms or if your symptoms worsen, please come back to the emergency department. Referrals: Ramona Hill MD [Primary Care Provider] - 1 Week Dylan Arias MD [Staff Physician] - 1 Week (Optional appointment if you wish) Disposition: VNS/HOME HEALTH CARE - Home Medications Comprehensive Discharge Medication List: Ambulatory Orders Glipizide [Glipizide ER] 5 mg PO DAILY 04/30/15 Metformin HCl [Metformin HCl ER] 500 mg PO DAILY 04/30/15 Metoprolol Tartrate 100 mg PO DAILY 04/30/15 Omeprazole [Prilosec (RX)] 40 mg PO DAILY 04/30/15 Losartan/Hydrochlorothiazide [Hyzaar 50-12.5 Tablet] 1 each PO DAILY #0 tablet 05/05/15 Ranolazine [Ranexa -] 500 mg PO BID 04/01/16 Gabapentin [Neurontin] 300 mg PO HS 06/13/17 Risperidone [Risperdal] 1 mg PO HS 06/13/17 Amlodipine Besylate [Norvasc -] 10 mg PO DAILY #20 tablet 06/16/17 Levofloxacin [Levaquin -] 500 mg PO DAILY #4 tablet 06/16/17 Prednisone [Deltasone] See Taper PO DAILY 12 Days 06/16/17 Tramadol HCl 25 mg PO DAILY 3 Days MDD 1 06/16/17 This patient is new to me today: No Emergency Visit: No Critical Care patient: No - Discharge Referral Referred to [facility] No
== END 2017-06-16 13:34 | disposition home health service (06) | DRG 189 ==
LOC: JER 16:54 → JERBED 19:40 → J6S 21:51
PROVIDERS: ADMIT Internal Medicine; ATTEND Internal Medicine
PROC: 3E0F7GC Introduction of Other Therapeutic Substance into Respiratory Tract, Via Natural or Artificial Opening (ICD-10-PCS; principal; 2017-06-13)
DX: J96.01 Acute respiratory failure with hypoxia (principal); J44.1 Chronic obstructive pulmonary disease with (acute) exacerbation; N17.9 Acute kidney failure, unspecified; J98.11 Atelectasis; F17.210 Nicotine dependence, cigarettes, uncomplicated; N28.1 Cyst of kidney, acquired; F32.9 Major depressive disorder, single episode, unspecified; M06.9 Rheumatoid arthritis, unspecified; I71.4 Abdominal aortic aneurysm, without rupture; E11.40 Type 2 diabetes mellitus with diabetic neuropathy, unspecified; Z79.84 Long term (current) use of oral hypoglycemic drugs; Z99.81 Dependence on supplemental oxygen; J96.12 Chronic respiratory failure with hypercapnia; I45.10 Unspecified right bundle-branch block; I25.119 Atherosclerotic heart disease of native coronary artery with unspecified angina pectoris; I11.0 Hypertensive heart disease with heart failure; I50.9 Heart failure, unspecified; D70.9 Neutropenia, unspecified; R41.0 Disorientation, unspecified; T39.1X5A Adverse effect of 4-Aminophenol derivatives, initial encounter
CPT/HCPCS: 36415; 36600; 71010-TC; 80048; 80053; 82550; 82803; 83036; 83880; 84439; 84443; 84481; 84484; 85025; 85027; 93005; 93010; 93306-TC; 94640; 94761; 97116-GP; 97161-GP; 99285-25; J1644; J2794

== ENCOUNTER 2017-07-18 10:36 | Inpatient (IN) | payer OTHER ==
[2017-07-18 10:44] VITALS: BMI 25.8
--- NOTE | 2017-07-18 11:19 | PDOC ---
History of Present Illness - General Chief Complaint: Pain Stated Complaint: ABD PAIN/MASS AT CT Time Seen by Provider: 07/18/17 11:18 Past History - Past Medical History Allergies/Adverse Reactions: Allergies Allergy/AdvReac Type Severity Reaction Status Date / Time No Known Allergies Allergy Verified 07/18/17 10:38 Home Medications: Ambulatory Orders Albuterol Sulfate Inhaler - [Ventolin Hfa Inhaler -] 2 inh PO Q4H 07/18/17 Amlodipine Besylate 10 mg PO DAILY 07/18/17 Aspirin [Aspirin EC] 81 mg PO DAILY 07/18/17 Fluticasone Propionate [Flovent Diskus] 50 mcg IH BID 07/18/17 Gabapentin [Neurontin] 300 mg PO DAILY 07/18/17 Glipizide 5 mg PO DAILY 07/18/17 Ipratropium/Albuterol Sulfate [Combivent Respimat Inhal [place]] 4 gm IH BID 07/18 Losartan/Hydrochlorothiazide [Losartan-Hctz 50-12.5 mg Tab] 1 each PO DAILY Melatonin 10 mg PO HS 07/18/17 Metformin HCl 500 mg PO DAILY 07/18/17 Metoprolol Succinate [Toprol Xl -] 100 mg PO DAILY 07/18/17 Omeprazole 40 mg PO DAILY 07/18/17 Polyethylene Glycol 3350 [Miralax (For Daily Use) -] 17 gm PO DAILY 07/18/17 Ranolazine [Ranexa] 500 mg PO BID 07/18/17 Risperidone [Risperdal -] 1 mg PO HS 07/18/17 Anemia: No Cardiac Disorders: No CVA: Yes (TIAs) COPD: Yes (PNEUMONIA) CHF: No Dementia: No Diabetes: Yes (NIDDM) GI Disorders: Yes (Rectal bleed 2013) Disorders: No HTN: Yes Hypercholesterolemia: Yes Liver Disease: No Seizures: No Thyroid Disease: No - Surgical History Abdominal Surgery: Yes Appendectomy: No Cardiac Surgery: No Cholecystectomy: Yes GI Surgery: Yes (bleeding ulcers) Lung Surgery: No Neurologic Surgery: No Orthopedic Surgery: Yes (ACL repair) - Psycho/Social/Smoking Cessation Hx Anxiety: No Suicidal Ideation: No Smoking Status: Yes Smoking History: Former smoker Have you smoked in the past 12 months: Yes Number of Cigarettes Smoked Daily: 10 If you are a former smoker, when did you quit?: 6 months Information on smoking cessation initiated: No 'Breaking Loose' booklet given: 12/17/14 Hx Alcohol Use: No Drug/Substance Use Hx: No Substance Use Type: None Hx Substance Use Treatment: No *Physical Exam - Vital Signs Last Vital Signs Temp Pulse Resp BP Pulse Ox 97.9 F 89 18 138/88 100 07/18/17 10:39 07/18/17 10:39 07/18/17 10:39 07/18/17 10:39 07/18/17 10:39 ED Treatment Course - LABORATORY CBC & Chemistry Diagram: 07/18/17 13:35 07/18/17 13:35 *DC/Admit/Observation/Transfer Diagnosis at time of Disposition: Confusion - Discharge Dispostion Condition at time of disposition: Unchanged/Unknown Admit: Yes - Referrals Referrals: Ramona Hill MD [Primary Care Provider] - - Attestations Physician Attestion: 07/18/17 11:19 I, Dr. Trell Bell, attest that this document has been prepared under my direction and personally reviewed by me in its entirety. I further attest, that it accurately reflects all work, treatment, procedures and medical decision -making performed by me.
--- NOTE | 2017-07-18 12:25 | PDOC ---
History of Present Illness - General Chief Complaint: Pain Stated Complaint: ABD PAIN/MASS AT CT Time Seen by Provider: 07/18/17 11:18 History Source: Patient, Family (daughter) Exam Limitations: No Limitations - History of Present Illness Initial Comments: 07/18/17 12:13 Patient is a 71 yo female with history of COPD (on 2L O2), HTN, NIDDM, HLD, Aortic aneurysm, GI bleed (2013) and a recently diagnosed abdominal mass by CT presenting with 1 day of diffuse abdominal pain and 1-2 weeks of increasing fatigue and exertional dyspnea. Patient is a poor historian with constantly changing chief complaint that also includes, weight loss, constipation, blood in stool, increased urination. According to daughter, the patient has been reporting vague complaints since the abdominal mass was found on 06/29. Patient is scheduled to see her PCP tomorrow and a followup EGD next week but brought her to the emergency department for evaluation because she is not acting like her normal self. PCP: Jluis GI: Jarrod Past History - Past Medical History Allergies/Adverse Reactions: Allergies Allergy/AdvReac Type Severity Reaction Status Date / Time No Known Allergies Allergy Verified 07/18/17 22:34 Home Medications: Ambulatory Orders Albuterol Sulfate Inhaler - [Ventolin HFA Inhaler -] 2 inh PO Q4H 07/18/17 Amlodipine Besylate 10 mg PO DAILY 07/18/17 Aspirin [Aspirin EC] 81 mg PO DAILY 07/18/17 Fluticasone Propionate [Flovent Diskus] 50 mcg IH BID 07/18/17 Gabapentin [Neurontin] 300 mg PO DAILY 07/18/17 Glipizide 5 mg PO DAILY 07/18/17 Ipratropium/Albuterol Sulfate [Combivent Respimat Inhal [place]] 4 gm IH BID 07/18 Losartan/Hydrochlorothiazide [Losartan-Hctz 50-12.5 mg Tab] 1 each PO DAILY Melatonin 10 mg PO HS 07/18/17 Metformin HCl 500 mg PO DAILY 07/18/17 Metoprolol Succinate [Toprol XL -] 100 mg PO DAILY 07/18/17 Omeprazole 40 mg PO DAILY 07/18/17 Polyethylene Glycol 3350 [Miralax 119 gm Btl -] 17 gm PO DAILY 07/18/17 Ranolazine [Ranexa] 500 mg PO BID 07/18/17 Risperidone [Risperdal -] 1 mg PO HS 07/18/17 Acetaminophen [Tylenol .Regular Strength -] 650 mg PO Q6H PRN #0 tablet Anemia: No Cardiac Disorders: No CVA: Yes (TIAs) COPD: Yes (PNEUMONIA) CHF: No Dementia: No Diabetes: Yes (NIDDM) GI Disorders: Yes (Rectal bleed 2013) Disorders: No HTN: Yes Hypercholesterolemia: Yes Liver Disease: No Seizures: No Thyroid Disease: No - Surgical History Abdominal Surgery: Yes Appendectomy: No Cardiac Surgery: No Cholecystectomy: Yes GI Surgery: Yes (bleeding ulcers) Lung Surgery: No Neurologic Surgery: No Orthopedic Surgery: Yes (ACL repair) - Psycho/Social/Smoking Cessation Hx Anxiety: No Suicidal Ideation: No Smoking Status: Yes Smoking History: Former smoker Have you smoked in the past 12 months: Yes Number of Cigarettes Smoked Daily: 10 If you are a former smoker, when did you quit?: 6 months Information on smoking cessation initiated: No 'Breaking Loose' booklet given: 12/17/14 Hx Alcohol Use: No Drug/Substance Use Hx: No Substance Use Type: None Hx Substance Use Treatment: No Review of Systems - Review of Systems Able to Perform ROS?: Yes Comments:: GEN: Endorses a 60 lb unintentional weight over the last few months, fatigue, malaise HEENTM: Endorses Sore Throat; Denies Changes in Vision, Changes in Hearing Respiratory: Endorses Cough, Shortness of Breath Cardiac: Denies Chest Pain, Syncope ABD/GI: Endorses Abdominal Pain, Constipation; Denies Nausea, Vomiting, Diarrhea : Endorses Increased Urination; Denies Dysuria, Burning on urination, Hematuria, Vaginal bleeding Musculoskeletal: Endorses joint pain Integumentary: Denies diaphoresis, rashes, bruises Neurological: Endorses weakness; Denies OLIVO All Other Systems Reviewed and Negative Is the patient limited Indonesian proficient: Yes *Physical Exam - Vital Signs Last Vital Signs Temp Pulse Resp BP Pulse Ox 97.9 F 89 18 138/88 100 07/18/17 10:39 07/18/17 10:39 07/18/17 10:39 07/18/17 10:39 07/18/17 10:39 - Physical Exam Comments: GENERAL: AAOx3, morbidly obese, appropriately dressed, NAD HEAD: NCAT EYES: EOMI, PERRLA, sclera anicteric, conjunctiva clear ENT: hearing grossly normal, nares patent, no congestion NECK: Supple, Normal ROM, no LAD, no JVD, no masses RESP: Diffuse coarse rales in all lung louie, R>L, symmetrical chest expansion , speaking in full sentences, requiring 3L O2, no respiratory distress HEART: RRR, normal S1-S2, no MRG ABDOMEN: Soft, Protuberant, mildly tender diffusely, moderate LLQ tenderness, ND , no guarding, no rebound. EXTREMITIES: Normal inspection, Normal ROM NEUROLOGICAL: CN II-XII grossly intact. Normal speech, normal gait, no focal sensorimotor deficits SKIN: Warm, Dry, normal turgor, no rashes or lesions noted. ED Treatment Course - LABORATORY CBC & Chemistry Diagram: 07/21/17 06:50 07/21/17 06:50 Medical Decision Making - Medical Decision Making 07/18/17 13:21 71 yo obese female with extensive smoking history, copd, aortic aneurysm, GI bleed, NSAID use and abdominal mass with LLQ abdominal pain, increasing weakness , exertional dyspnea and vague associated symptoms. Ddx is broad and includes but not limited to Cancer, COPD exacerbation, CHF, PNA , Silent CA, GI bleed, anemia, UTI, PE, CVA Plan EKG CBC, CMP UA CXR Fecal Occult Blood ABG Cardiac enzymes US Chest/Abdomen Consider CT Abdomen Monitor and reassess 07/18/17 13:21 Abnormal EKG but no significant change from 13-Jun-201707/18/17 14:54 CBC WBC 5.9 K/mm3 (4.0-10.0) 07/18/17 13:35 RBC 4.64 M/mm3 (3.60-5.2) 07/18/17 13:35 Hgb 15.0 GM/dL (10.7-15.3) D 07/18/17 13:35 Hct 45.1 % (32.4-45.2) 07/18/17 13:35 MCV 97.2 fl (80-96) H 07/18/17 13:35 MCH 32.3 pg (25.7-33.7) 07/18/17 13:35 MCHC 33.2 g/dl (32.0-36.0) 07/18/17 13:35 RDW 14.4 % (11.6-15.6) 07/18/17 13:35 Plt Count 306 K/MM3 (134-434) D 07/18/17 13:35 MPV 8.5 fl (7.5-11.1) 07/18/17 13:35 Neutrophils % 62.6 % (42.8-82.8) D 07/18/17 13:35 Lymphocytes % 28.9 % (8-40) D 07/18/17 13:35 Monocytes % 6.6 % (3.8-10.2) D 07/18/17 13:35 Eosinophils % 1.2 % (0-4.5) D 07/18/17 13:35 Basophils % 0.7 % (0-2.0) D 07/18/17 13:35 Grossly within normal limits, no anemia, no leukocytosis CMP Sodium 140 mmol/L (136-145) 07/18/17 13:35 Potassium 4.5 mmol/L (3.5-5.1) 07/18/17 13:35 Chloride 101 mmol/L (98-107) 07/18/17 13:35 Carbon Dioxide 32 mmol/L (21-32) 07/18/17 13:35 Anion Gap 7 (8-16) L 07/18/17 13:35 BUN 13 mg/dL (7-18) D 07/18/17 13:35 Creatinine 0.7 mg/dL (0.55-1.02) D 07/18/17 13:35 Creat Clearance w eGFR > 60 (>60) 07/18/17 13:35 Random Glucose 83 mg/dL (74-106) D 07/18/17 13:35 Calcium 11.3 mg/dL (8.5-10.1) H 07/18/17 13:35 Total Bilirubin 0.6 mg/dL (0.2-1.0) D 07/18/17 13:35 AST 17 U/L (15-37) 07/18/17 13:35 ALT 18 U/L (12-78) D 07/18/17 13:35 Alkaline Phosphatase 85 U/L (45-117) 07/18/17 13:35 Creatine Kinase 86 IU/L (26-192) 07/18/17 13:35 Troponin I < 0.02 ng/ml (0.00-0.05) 07/18/17 13:35 Total Protein 7.5 g/dl (6.4-8.2) 07/18/17 13:35 Albumin 3.8 g/dl (3.4-5.0) 07/18/17 13:35 Grossly within normal limits Cardiac enzymes reassuring 07/18/17 15:04 ABG does not support CO2 retention, pH wnl 07/18/17 15:05 CXR shows no evidence of active pulmonary disease 07/18/17 15:17 Occult blood negative, reduced suspicion for GI bleed Workup shows no signs of any acute pathology Patient asking to go home. If results of UA negative, consider discharging patient Patient having a difficult time providing urine sample, twice she has gone to the bathroom to provide a sample and returned having urinated and stating she forgot to collect the sample. One time, she provided a colorless sample and, when asked, stated it was water because she didn't need to go and wanted to provide a sample so she could go home. Patient seems confused about the purpose of the urine sample. 07/18/17 17:23 Urine Test Results Urine Color Yellow 07/18/17 13:10 Urine Appearance Clear 07/18/17 13:10 Urine pH 6.0 (5.0-8.0) 07/18/17 13:10 Urine Protein Negative (NEGATIVE) 07/18/17 13:10 Urine Glucose (UA) Negative (NEGATIVE) 07/18/17 13:10 Urine Ketones Negative (NEGATIVE) 07/18/17 13:10 Urine Blood Negative (NEGATIVE) 07/18/17 13:10 Urine Nitrite Negative (NEGATIVE) 07/18/17 13:10 Urine Bilirubin Negative (NEGATIVE) 07/18/17 13:10 Ur Leukocyte Esterase Negative (NEGATIVE) 07/18/17 13:10 Within normal limits, non concerning 07/18/17 18:29 Spoke with the daughter who is expressing concern that, in her opinion, her mother is not at baseline neurologically despite the negative workup. She has an appointment with her PCP tomorrow but does not feel comfortable taking her mother home at this time. Dr. Bell discussed the possibility of having the patient admitted for observation and monitoring of her confusion with a neurological check in the morning. The daughter was in agreement with this course, if possible. Daughter requested that her mother not receive any narcotics due to her history of having an exaggerated reaction to them. In the past she become very confused and disoriented when given percocet. 07/18/17 18:53 Patient to be admitted to [facility] for confusion CT Head ordered *DC/Admit/Observation/Transfer Diagnosis at time of Disposition: Confusion - Discharge Dispostion Disposition: HOME Condition at time of disposition: Stable - Referrals - Attestations Physician Attestion: 07/18/17 18:48 I, Dr. Aron Avila, attest that this document has been prepared under my direction and personally reviewed by me in its entirety. I further attest, that it accurately reflects all work, treatment, procedures and medical decision -making performed by me.
[2017-07-18 13:29] LABS: STOOL FOR OCCULT BLOOD NEGATIVE (NEGATIVE)
[2017-07-18 13:46] LABS: BASOPHIL 0.7 % (0-2.0); EOSINOPHIL 1.2 % (0-4.5); MCH 32.3 pg (25.7-33.7); MCHC 33.2 g/dl (32.0-36.0); MEAN CELL VOLUME 97.2 fl (80-96); MEAN PLT VOLUME 8.5 fl (7.5-11.1); NEUTROPHILS 62.6 % (42.8-82.8); PLATELET COUNT 306 K/MM3 (134-434); RDW 14.4 % (11.6-15.6); WHITE BLOOD COUNT 5.9 K/mm3 (4.0-10.0)
[2017-07-18 14:04] LABS: ARTERIAL BLD GAS O2 SATURATION 88.6 % (90-98.9); ARTERIAL BLOOD GAS BASE EXCESS 4.1 meq/l (-2-2); ARTERIAL BLOOD GAS HCO3 28.8 meq/L (22-26); ARTERIAL BLOOD GAS pH 7.42 (7.35-7.45)
[2017-07-18 14:05] LABS: ALLENS TEST POSITIVE; ART PUNCT SITE RIGHT RADIAL; LPM/O2% 2L; PT. ON O2? YES; TYPE OF O2 N/C
[2017-07-18 14:19] LABS: ALBUMIN 3.8 g/dl (3.4-5.0); ALK PHOS 85 U/L (45-117); ANION GAP 7 (8-16); BILIRUBIN,TOTAL 0.6 mg/dL (0.2-1.0); CALCIUM 11.3 mg/dL (8.5-10.1); CO2 32 mmol/L (21-32); CREATININE 0.7 mg/dL (0.55-1.02); GLUCOSE,RANDOM 83 mg/dL (74-106); SGOT/AST 17 U/L (15-37); SGPT/ALT 18 U/L (12-78); TOT PROT 7.5 g/dl (6.4-8.2)
[2017-07-18 14:21] LABS: CPK 86 IU/L (26-192); TROPONIN I < 0.02 ng/ml (0.00-0.05)
--- NOTE | 2017-07-18 17:16 | EKG ---
Test Reason : Blood Pressure : / mmHG Vent. Rate : 088 BPM Atrial Rate : 088 BPM P-R Int : 156 ms QRS Dur : 140 ms QT Int : 388 ms P-R-T Axes : 059 268 005 degrees QTc Int : 469 ms NORMAL SINUS RHYTHM POSSIBLE LEFT ATRIAL ENLARGEMENT RIGHT BUNDLE BRANCH BLOCK ABNORMAL ECG WHEN COMPARED WITH ECG OF 18-JUL-2017 11:10, NO SIGNIFICANT CHANGE WAS FOUND Confirmed by MANDA REYES MD ([id number]) on 07/18/2017 5:16:00 PM Referred By: Confirmed By:MANDA REYES MD
[2017-07-18 17:40] LABS: URINE APPEARANCE CLEAR; URINE BILIRUBIN NEGATIVE (NEGATIVE); URINE BLOOD NEGATIVE (NEGATIVE); URINE COLOR YELLOW; URINE GLUCOSE (UA) NEGATIVE (NEGATIVE); URINE KETONE NEGATIVE (NEGATIVE); URINE LEUK ESTERASE NEGATIVE (NEGATIVE); URINE NITRITE NEGATIVE (NEGATIVE); URINE PROTEIN NEGATIVE (NEGATIVE); URINE UROBILINOGEN NEGATIVE mg/dL (0.2-1.0)
[2017-07-18] MEDS ORDERED: LORazepam 2 MG/ML SDV VIAL ONE (18:41)
--- NOTE | 2017-07-18 18:47 | HP ---
CHIEF COMPLAINT: AMS and lower abdominal pain PCP: Dr. Hill GI: Dr. Lemus Cardio: Pulm: Dr. Key HISTORY OF PRESENT ILLNESS: 71 yr old woman with COPD(2L o2 dependent), abdominal mass in the distal stomach , recently found to have elevated CEA, dementia brought to the ED by daughter for worsening AMS for past week and lower abdominal pain since last night. History was provided by daughter as patient was a poor historian and recently received ativan. Last tuesday pt was at a baby shower and as per daughter was calling long-time known family and friend by different names. She has been asking for her son (Deyanira) who 6-7 yrs ago. daugher says since then she has been having intermittent episodes of having a "distant gaze" and not responding for 5-10 minutes. she has not been her usual self all week, typically is alert, oriented x3. daughter notes abnormal b/l hand tremors with movement during the last week which is abnormal to the patient. Pt was told on that her CEA level was elevated by Dr. Malone and is planned to have an outpatient endoscopy next week. Abdominal started last night b/l lower abdominal quadrants, daughter attributed to constipation and gave her more miralax. This morning the [employer] said the patient had continued to c.o abdominal pain and was crying so daughter brought her in. she also complained of bitemporal pressure-like headache, nonradiating, intermitted for past 2 days, as per daughter. Patient was oriented to person, not birthday (said it was "august 20 1949"), not place, knows the president(Manuel). When asked what brought her to the ED/how her day was, she started to talk about "Peeky needing to come to the dining room table." Started talking about seeing a man, first it was her son , but then denied hallucinations. denies facial droop, difficulty swallowing. Pt finished her steriod taper as prescribed, has not had any new medications/ foods, exposures, travel, or new people recently. ER course was notable for: (1) Head CT (2) consulted Dr. Blount (3) as per ED, when asked for urine sample, pt went into the bathroom and brought back a cup of water Recent Travel: none Past Medical History Cardio/Vascular: cardiac cath 07/10/2015, CAD, HTN, ascending AA 4.5cm Pulmonary: COPD, 02 dependent on 2L, current everyday smoker Rheumatology: Rheumatoid Arthritis Endocrine: NIDDM II GI: hx of GI bleed, abdominal mass, Neuro: dementia, hx of infarct, TIA Psych: depression PAST SURGICAL HISTORY: arthoscopy left knee surgery 2x Years ago: - total abdominal hysterectomy - appendectomy - cholecystectomy Social History: Smoking: current everyday Alcohol: denies Drugs: denies Family History: NC Allergies No Known Allergies Allergy (Verified 07/18/17 10:38) HOME MEDICATIONS: Home Medications Medication Instructions Recorded Albuterol Sulfate Inhaler - 2 inh PO Q4H 07/18/17 [Ventolin Hfa Inhaler -] Amlodipine Besylate 10 mg PO DAILY 07/18/17 Aspirin [Aspirin EC] 81 mg PO DAILY 07/18/17 Fluticasone Propionate [Flovent 50 mcg IH BID 07/18/17 Diskus] Gabapentin [Neurontin] 300 mg PO DAILY 07/18/17 Glipizide 5 mg PO DAILY 07/18/17 Ipratropium/Albuterol Sulfate 4 gm IH BID 07/18/17 [Combivent Respimat Inhal [place]] Losartan/Hydrochlorothiazide 1 each PO DAILY 07/18/17 [Losartan-Hctz 50-12.5 mg Tab] Melatonin 10 mg PO HS 07/18/17 Metformin HCl 500 mg PO DAILY 07/18/17 Metoprolol Succinate [Toprol Xl -] 100 mg PO DAILY 07/18/17 Omeprazole 40 mg PO DAILY 07/18/17 Polyethylene Glycol 3350 [Miralax 17 gm PO DAILY 07/18/17 (For Daily Use) -] Ranolazine [Ranexa] 500 mg PO BID 07/18/17 Risperidone [Risperdal -] 1 mg PO HS 07/18/17 REVIEW OF SYSTEMS CONSTITUTIONAL: Absent: fever, chills, diaphoresis, generalized weakness, malaise, loss of appetite, weight change HEENT: Absent: rhinorrhea, nasal congestion, throat pain, throat swelling, difficulty swallowing, mouth swelling, visual changes CARDIOVASCULAR: Absent: chest pain, syncope, palpitations, irregular heart rate, lightheadedness , peripheral edema RESPIRATORY: Absent: cough, shortness of breath, dyspnea with exertion, orthopnea, wheezing, stridor, hemoptysis GASTROINTESTINAL: Present: abdominal pain,constipation Absent: abdominal distension, nausea, vomiting, diarrhea, melena, hematochezia GENITOURINARY: Absent: dysuria, frequency, urgency, hesitancy, hematuria, flank pain, genital pain MUSCULOSKELETAL: Absent: myalgia, arthralgia, joint swelling, back pain, neck pain SKIN: Absent: rash, itching, pallor ENDOCRINE: Absent: unexplained weight gain, unexplained weight loss, heat intolerance, cold intolerance NEUROLOGIC: Present: headache, unsteady gait, mental status changes, Absent: focal weakness or paresthesias, dizziness, seizure,bladder or bowel incontinence PHYSICAL EXAMINATION Vital Signs - 24 hr 07/18/17 07/18/17 10:39 12:32 Temperature 97.9 F Pulse Rate 89 Respiratory 18 Rate Blood Pressure 138/88 O2 Sat by Pulse 100 96 Oximetry (%) GENERAL: Awake, alert, and oriented to person and president, in no acute distress. HEAD: Normal with no signs of trauma. EYES: Pupils equal, round and reactive to light, extraocular movements intact, sclera anicteric, conjunctiva clear. No lid lag. EARS, NOSE, THROAT: upper palate with thrush, Moist mucous membranes. no erythema NECK: Normal range of motion, supple without lymphadenopathy, JVD, or masses. LUNGS: mild b/l wheezes, and no crackles. No accessory muscle use. HEART: Regular rate and rhythm, normal S1 and S2 without murmur, rub or gallop. ABDOMEN: Soft, nontender, not distended, normoactive bowel sounds, no guarding, no rebound, no masses. No hepatomegaly or splenomegaly. MUSCULOSKELETAL: Normal range of motion at all joints. No bony deformities or tenderness. No CVA tenderness. UPPER EXTREMITIES: 2+ radial pulses, warm, well-perfused. No cyanosis. No clubbing. No peripheral edema. LOWER EXTREMITIES:1+ DP pulses, warm, well-perfused. No calf tenderness. trace left ankle edema NEUROLOGICAL: Cranial nerves II-XII intact. Normal speech. 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 3/5 hip extension b/l. 4/5 dorsia/plantar flexion. sensation intact and equal b/l face, arms and legs. no limb drift. does not follow commands for [id number] testing or heel to noyola testing. no resting tremor or intention tremor noted. PSYCHIATRIC: Cooperative. Good eye contact. Appropriate mood and affect. SKIN: Warm, dry, normal turgor, no rashes or lesions noted, normal capillary refill. Laboratory Results - last 24 hr 07/18/17 07/18/17 07/18/17 13:10 13:35 13:35 WBC 5.9 RBC 4.64 Hgb 15.0 D Hct 45.1 MCV 97.2 H MCH 32.3 MCHC 33.2 RDW 14.4 Plt Count 306 D MPV 8.5 Neutrophils % 62.6 D Lymphocytes % 28.9 D Monocytes % 6.6 D Eosinophils % 1.2 D Basophils % 0.7 D Puncture Site ABG pH ABG pCO2 at Pt Temp ABG pO2 at Pt Temp ABG HCO3 ABG O2 Sat (Measured) ABG O2 Content ABG Base Excess Reji Test O2 Delivery Device Oxygen Flow Rate PEEP Sodium 140 Potassium 4.5 Chloride 101 Carbon Dioxide 32 Anion Gap 7 L BUN 13 D Creatinine 0.7 D Creat Clearance w eGFR > 60 Random Glucose 83 D Calcium 11.3 H Total Bilirubin 0.6 D AST 17 ALT 18 D Alkaline Phosphatase 85 Creatine Kinase Troponin I Total Protein 7.5 Albumin 3.8 Urine Color Yellow Urine Appearance Clear Urine pH 6.0 Urine Protein Negative Urine Glucose (UA) Negative Urine Ketones Negative Urine Blood Negative Urine Nitrite Negative Urine Bilirubin Negative Urine Urobilinogen Negative Ur Leukocyte Esterase Negative Stool Occult Blood Negative 07/18/17 07/18/17 13:35 14:05 WBC RBC Hgb Hct MCV MCH MCHC RDW Plt Count MPV Neutrophils % Lymphocytes % Monocytes % Eosinophils % Basophils % Puncture Site Right radial ABG pH 7.42 ABG pCO2 at Pt Temp 44.9 D ABG pO2 at Pt Temp 55.0 L ABG HCO3 28.8 H ABG O2 Sat (Measured) 88.6 L ABG O2 Content 17.1 ABG Base Excess 4.1 H Reji Test Positive O2 Delivery Device N/c Oxygen Flow Rate 2l PEEP 0.0 Sodium Potassium Chloride Carbon Dioxide Anion Gap BUN Creatinine Creat Clearance w eGFR Random Glucose Calcium Total Bilirubin AST ALT Alkaline Phosphatase Creatine Kinase 86 Troponin I < 0.02 Total Protein Albumin Urine Color Urine Appearance Urine pH Urine Protein Urine Glucose (UA) Urine Ketones Urine Blood Urine Nitrite Urine Bilirubin Urine Urobilinogen Ur Leukocyte Esterase Stool Occult Blood Active Medications Albuterol Sulfate (Ventolin Hfa Inhaler -) 2 puff IH Q4H PRN Albuterol/Ipratropium (Duoneb -) 1 amp NEB Q6H PRN PRN Reason: SHORTNESS OF BREATH Amlodipine Besylate (Norvasc -) 10 mg PO DAILY [facility] Enoxaparin Sodium (Lovenox -) 30 mg SQ DAILY IVANIA Gabapentin (Neurontin -) 300 mg PO HS IVANIA HCTZ/Losartan Potassium (Hyzaar -) 1 tab PO DAILY [facility] Insulin Aspart (Novolog Vial Sliding Scale -) 1 vial SQ ACHS IVANIA PRN Reason: Protocol Metoprolol Succinate (Toprol Xl -) 100 mg PO DAILY [facility] Non-Formulary Medication (Fluticasone Propionate [Flovent Diskus]) 50 mcg IH BID [facility] Non-Formulary Medication (Melatonin [Melatonin]) 10 mg PO HS [facility] Pantoprazole Sodium (Protonix -) 40 mg PO DAILY [facility] Polyethylene Glycol (Miralax (For Daily Use) -) 17 gm PO DAILY IVANIA Ranolazine (Ranexa -) 500 mg PO BID IVANIA Risperidone (Risperdal -) 1 mg PO HS IVANIA ASSESSMENT/PLAN: 71 yr old woman with dementia and abdominal mass placed on observation for AMS. - avoid any narcotics in the patient: no percocet, no morphine, she does not react well, becomes acutely delirious, use tylenol for pain #AMS - unclear etiology - no metabolic derangements, no hypercapnea, no infectious source(cxy clear, u/ a clear) - check TSH, vitamin b12, folate, ammonia for reversable causes - neuro consult - concern for mets given elevated CEA level, possible GI malignancy vs worsening dementia - will order CT scan to r/o hemorrhage and MRI w/contrast to eval for mass - pt consult for unsteady gait #NIDM II - hold metformin and glipizide - NISS, BGM ACHS #HTN - Metoprolol Succinate (Toprol Xl -) 100 mg PO DAILY - HCTZ/Losartan Potassium (Hyzaar) 50/12.5 po daily - ranexa 500mg po bid - norvasc 10mg po daily #Depression/dementia - risperdal 1mg po hs #RA - neurontin 300mg po HS #constipation - miralax daily #COPD - not in exacerbation -2L nasal cannula - ventolin, duonebs prn #Hx of GIB - omeprazole 40mg po daily #DVT: lovenox 30unis sq #diet: diabetic, low sodium #activity: OOB with assistance #F/E: none/no repletion needed currently Visit type - Emergency Visit Emergency Visit: Yes ED Registration Date: 07/18/17 Care time: The patient presented to the Emergency Department on the above date and was hospitalized for further evaluation of their emergent condition. - New Patient This patient is new to me today: Yes Date on this admission: 07/18/17 - Critical Care Critical Care patient: No
--- NOTE | 2017-07-18 19:32 | PN ---
Teaching Attending Note Name of Resident: Dano Clark ATTENDING PHYSICIAN STATEMENT I saw and evaluated the patient. I reviewed the resident's note and discussed the case with the resident. I agree with the resident's findings and plan as documented. SUBJECTIVE: 71 yo F with pmhx of TIA, HTN, R. Kidney cyst, Ascending AA 4.5 cm, depression, GIB, DM II, COPD who presented w. AMS and Abdominal pain, recently found tohave abdominal mass and increased CEA. No colonoscopy done yet, to be done out pt. with OBJECTIVE: Physical: VS: Vital Signs Period Temp Pulse Resp BP Sys/Cox Pulse Ox Last 24 Hr 97.9 F 89 18 138/88 96-100 GEN: NAD, Resting in bed, AAoX1 (person) HEENT: NCAT, PERRL, pt. refused to open mouth CARD: RRR S1, S2 RESP: Mild expiratory wheeze bilaterally ABD: BSX4, NTD to palpation EXT: - C/C/E CXR:No acute process EKG: CT HEAD: CBCD WBC 5.9 K/mm3 (4.0-10.0) 07/18/17 13:35 RBC 4.64 M/mm3 (3.60-5.2) 07/18/17 13:35 Hgb 15.0 GM/dL (10.7-15.3) D 07/18/17 13:35 Hct 45.1 % (32.4-45.2) 07/18/17 13:35 MCV 97.2 fl (80-96) H 07/18/17 13:35 MCHC 33.2 g/dl (32.0-36.0) 07/18/17 13:35 RDW 14.4 % (11.6-15.6) 07/18/17 13:35 Plt Count 306 K/MM3 (134-434) D 07/18/17 13:35 MPV 8.5 fl (7.5-11.1) 07/18/17 13:35 CMP Sodium 140 mmol/L (136-145) 07/18/17 13:35 Potassium 4.5 mmol/L (3.5-5.1) 07/18/17 13:35 Chloride 101 mmol/L (98-107) 07/18/17 13:35 Carbon Dioxide 32 mmol/L (21-32) 07/18/17 13:35 Anion Gap 7 (8-16) L 07/18/17 13:35 BUN 13 mg/dL (7-18) D 07/18/17 13:35 Creatinine 0.7 mg/dL (0.55-1.02) D 07/18/17 13:35 Creat Clearance w eGFR > 60 (>60) 07/18/17 13:35 Random Glucose 83 mg/dL (74-106) D 07/18/17 13:35 Calcium 11.3 mg/dL (8.5-10.1) H 07/18/17 13:35 Total Bilirubin 0.6 mg/dL (0.2-1.0) D 07/18/17 13:35 AST 17 U/L (15-37) 07/18/17 13:35 ALT 18 U/L (12-78) D 07/18/17 13:35 Alkaline Phosphatase 85 U/L (45-117) 07/18/17 13:35 Total Protein 7.5 g/dl (6.4-8.2) 07/18/17 13:35 Albumin 3.8 g/dl (3.4-5.0) 07/18/17 13:35 CARDIAC ENZYMES Creatine Kinase 86 IU/L (26-192) 07/18/17 13:35 Troponin I < 0.02 ng/ml (0.00-0.05) 07/18/17 13:35 Home Medications Medication Instructions Recorded Albuterol Sulfate Inhaler - 2 inh PO Q4H 07/18/17 [Ventolin Hfa Inhaler -] Amlodipine Besylate 10 mg PO DAILY 07/18/17 Aspirin [Aspirin EC] 81 mg PO DAILY 07/18/17 Fluticasone Propionate [Flovent 50 mcg IH BID 07/18/17 Diskus] Gabapentin [Neurontin] 300 mg PO DAILY 07/18/17 Glipizide 5 mg PO DAILY 07/18/17 Ipratropium/Albuterol Sulfate 4 gm IH BID 07/18/17 [Combivent Respimat Inhal Shubuta] Losartan/Hydrochlorothiazide 1 each PO DAILY 07/18/17 [Losartan-Hctz 50-12.5 mg Tab] Melatonin 10 mg PO HS 07/18/17 Metformin HCl 500 mg PO DAILY 07/18/17 Metoprolol Succinate [Toprol Xl -] 100 mg PO DAILY 07/18/17 Omeprazole 40 mg PO DAILY 07/18/17 Polyethylene Glycol 3350 [Miralax 17 gm PO DAILY 07/18/17 (For Daily Use) -] Ranolazine [Ranexa] 500 mg PO BID 07/18/17 Risperidone [Risperdal -] 1 mg PO HS 07/18/17 ASSESSMENT AND PLAN: 71 F with pmhx 1.) AMS DDX: Delerium acute vs. mass brain vs. less likely infection - UA, UCx, UA negative - MRI Brain W contrast - CT HEAD Pending - TSH - RPR- Negative last visti - B12/Folate - Ammonia Level - ABG reviewed - Neuro consult 2.) DMII - FS - RAISS - Hold Metformin/Glipizide 3.) Dementia/Depression -Risperadol 4.) COPD - Alb Nebs 5.) HTN - C/W Home meds Place in Med-Obs
[2017-07-18] MEDS ORDERED: ALBUTEROL SO4 6.7 GM HFA INHALER IH SCH (20:15)
[2017-07-18] MEDS ORDERED: ALBUTEROL SO4 6.7 GM HFA INHALER IH PRN (20:48)
[2017-07-18] MEDS ORDERED: MELATONIN 5 MG TABLETS PO PRN (22:37)
[2017-07-18] MEDS: INSULIN SLIDING SCALE (NOVOLOG) 1 VIAL SQ SCH (22:52)
[2017-07-18] MEDS: MOMETASONE FUROATE 220 MCG/IH INHALER IH SCH (22:52)
[2017-07-18] MEDS: RANOLAZINE E.R. 500 MG TABLET (FP) PO SCH (22:56)
[2017-07-18] MEDS: GABAPENTIN 300 MG CAPSULE (FP) PO SCH (22:56)
[2017-07-18] MEDS: risperiDONE 1 MG TABLET (FP) PO SCH (23:00)
[2017-07-19] MEDS: INSULIN SLIDING SCALE (NOVOLOG) 1 VIAL SQ SCH ×4 (06:08→23:19)
[2017-07-19] MEDS: ALBUTEROL SO4 2.5/IPRATROPIUM 0.5 INH SOL 3 ML VIAL.NEB. NEB PRN ×2 (06:35→21:40)
--- NOTE | 2017-07-19 07:54 | CON.NEURO ---
Consult - History of Present Illness History of Present Illness: 71 yr old woman with COPD(2L o2 dependent), abdominal mass in the distal stomach , recently found to have elevated CEA, dementia brought to the ED by daughter for worsening AMS for past week and lower abdominal pain since last night. Last week, was at a baby shower and as per daughter was calling long-time known family and friend by different names. She has been asking for her son (Deyanira) who 6-7 yrs ago. daughter says since then she has been having intermittent episodes of having a "distant gaze" and not responding for 5-10 minutes. he has not been her usual self all week, typically is alert, oriented x3. daughter notes abnormal b/l hand tremors with movement during the last week which is abnormal to the patient. Pt was told on that her CEA level was elevated by Dr. Malone and is planned to have an outpatient endoscopy next week. This AM, she is quite sleepy, wakes up then falls back to sleep; states yr 1972 , the corrects herself and states sorry 1973; talks about getting mangoes out of a tree. States R arm pain --very poor HX. denies ETOH. Studies: CT HD left caudate infarct and mod white matter changes - History Source History Provided By: Medical Record - Past Medical History Cardio/Vascular: Yes: CAD, HTN Pulmonary: Yes: COPD ...: No Rheumatology: Yes: Rheumatoid Arthritis Endocrine: Yes: Diabetes Mellitus - Past Surgical History Past Surgical History: Yes: Hysterectomy, Appendectomy, Cholecystectomy - Alcohol/Substance Use Hx Alcohol Use: No - Smoking History Smoking history: Former smoker Have you smoked in the past 12 months: Yes Aproximately how many cigarettes per day: 10 If you are a former smoker, when did you quit?: 6 months Home Medications - Allergies Allergies/Adverse Reactions: Allergies Allergy/AdvReac Type Severity Reaction Status Date / Time No Known Allergies Allergy Verified 07/18/17 22:34 - Home Medications Home Medications: Ambulatory Orders Albuterol Sulfate Inhaler - [Ventolin Hfa Inhaler -] 2 inh PO Q4H 07/18/17 Amlodipine Besylate 10 mg PO DAILY 07/18/17 Aspirin [Aspirin EC] 81 mg PO DAILY 07/18/17 Fluticasone Propionate [Flovent Diskus] 50 mcg IH BID 07/18/17 Gabapentin [Neurontin] 300 mg PO DAILY 07/18/17 Glipizide 5 mg PO DAILY 07/18/17 Ipratropium/Albuterol Sulfate [Combivent Respimat Inhal Deport] 4 gm IH BID 07/18 Losartan/Hydrochlorothiazide [Losartan-Hctz 50-12.5 mg Tab] 1 each PO DAILY Melatonin 10 mg PO HS 07/18/17 Metformin HCl 500 mg PO DAILY 07/18/17 Metoprolol Succinate [Toprol Xl -] 100 mg PO DAILY 07/18/17 Omeprazole 40 mg PO DAILY 07/18/17 Polyethylene Glycol 3350 [Miralax (For Daily Use) -] 17 gm PO DAILY 07/18/17 Ranolazine [Ranexa] 500 mg PO BID 07/18/17 Risperidone [Risperdal -] 1 mg PO HS 07/18/17 Family Disease History - Family Disease History Family Disease History: Heart Disease: Father, Brother, Sister Physical Exam-Neuro Vital Signs: Vital Signs Temperature 98.5 F 07/19/17 05:56 Pulse Rate 95 H 07/19/17 05:56 Respiratory Rate 20 07/19/17 05:56 Blood Pressure 149/87 07/19/17 05:56 O2 Sat by Pulse Oximetry (%) 95 07/19/17 03:09 Constitutional: Yes: Well Nourished (well kept, sleepy arpouasble but falls back asleep,+ confusion see HPI, no facial, ? R UE weakness though poorly complies with exam,no LE weakness distally, plantars dwon ) Labs: CBCD WBC 5.9 K/mm3 (4.0-10.0) 07/18/17 13:35 RBC 4.64 M/mm3 (3.60-5.2) 07/18/17 13:35 Hgb 15.0 GM/dL (10.7-15.3) D 07/18/17 13:35 Hct 45.1 % (32.4-45.2) 07/18/17 13:35 MCV 97.2 fl (80-96) H 07/18/17 13:35 MCHC 33.2 g/dl (32.0-36.0) 07/18/17 13:35 RDW 14.4 % (11.6-15.6) 07/18/17 13:35 Plt Count 306 K/MM3 (134-434) D 07/18/17 13:35 MPV 8.5 fl (7.5-11.1) 07/18/17 13:35 CMP Sodium 140 mmol/L (136-145) 07/18/17 13:35 Potassium 4.5 mmol/L (3.5-5.1) 07/18/17 13:35 Chloride 101 mmol/L (98-107) 07/18/17 13:35 Carbon Dioxide 32 mmol/L (21-32) 07/18/17 13:35 Anion Gap 7 (8-16) L 07/18/17 13:35 BUN 13 mg/dL (7-18) D 07/18/17 13:35 Creatinine 0.7 mg/dL (0.55-1.02) D 07/18/17 13:35 Creat Clearance w eGFR > 60 (>60) 07/18/17 13:35 Calcium 11.3 mg/dL (8.5-10.1) H 07/18/17 13:35 Total Bilirubin 0.6 mg/dL (0.2-1.0) D 07/18/17 13:35 AST 17 U/L (15-37) 07/18/17 13:35 ALT 18 U/L (12-78) D 07/18/17 13:35 Alkaline Phosphatase 85 U/L (45-117) 07/18/17 13:35 Total Protein 7.5 g/dl (6.4-8.2) 07/18/17 13:35 Albumin 3.8 g/dl (3.4-5.0) 07/18/17 13:35 Problem List - Problems (1) Abdominal pain Code(s): R10.9 - UNSPECIFIED ABDOMINAL PAIN Qualifiers: Abdominal location: left lower quadrant Qualified Code(s): R10.32 - Left lower quadrant pain (2) Altered mental state Code(s): R41.82 - ALTERED MENTAL STATUS, UNSPECIFIED Qualifiers: Altered mental status type: unspecified Qualified Code(s): R41.82 - Altered mental status, unspecified (3) COPD (chronic obstructive pulmonary disease) Code(s): J44.9 - CHRONIC OBSTRUCTIVE PULMONARY DISEASE, UNSPECIFIED Assessment/Plan 71 yr old woman with COPD(2L o2 dependent), abdominal mass in the distal stomach , recently found to have elevated CEA, dementia brought to the ED by daughter for worsening AMS for past week and lower abdominal pain since last night. Dementia at her age would be unusual and she appears to be fairly well kept and discordant with current confusion --suspect ? delirium-though cause unclear, underlying neoplasm; vascular events typically does not present like this either. meningitis less likely, though occult encephalitis is possible. paraneoplastic DAVIDSON is also in consideration. daughter not present during this exam. check MRI BRAIN FU TSH, B12, will consider LP arm pain -shoulder xray, consider further malignancy DAVIDSON. thanks Dr Blount [phone]
[2017-07-19 09:11] LABS: BASOPHIL 0.6 % (0-2.0); EOSINOPHIL 1.6 % (0-4.5); MCH 31.2 pg (25.7-33.7); MCHC 31.9 g/dl (32.0-36.0); MEAN CELL VOLUME 97.8 fl (80-96); MEAN PLT VOLUME 8.6 fl (7.5-11.1); PLATELET COUNT 243 K/MM3 (134-434); RDW 14.1 % (11.6-15.6); WHITE BLOOD COUNT 3.8 K/mm3 (4.0-10.0)
[2017-07-19 09:12] LABS: ALBUMIN 2.8 g/dl (3.4-5.0); ANION GAP 9 (8-16); BILIRUBIN,TOTAL 0.4 mg/dL (0.2-1.0); CALCIUM 10.2 mg/dL (8.5-10.1); CO2 30 mmol/L (21-32); CREATININE 0.7 mg/dL (0.55-1.02); GLUCOSE,RANDOM 84 mg/dL (74-106); SGOT/AST 9 U/L (15-37); SGPT/ALT 13 U/L (12-78); TOT PROT 5.8 g/dl (6.4-8.2)
[2017-07-19 09:21] LABS: ALK PHOS 66 U/L (45-117)
[2017-07-19] MEDS ORDERED: PATIENT'S OWN MEDICATION (NON-FORMULARY) (Omeprazole [Omeprazole] 40 MG) PO SCH (10:00)
[2017-07-19] MEDS ORDERED: ENOXAPARIN NA (PORCINE) 30 MG/0.3 ML DISP.SYRIN SQ ONE (10:00)
[2017-07-19] MEDS ORDERED: amLODIPine BESYLATE 10 MG TABLET (FP) PO SCH (10:00)
[2017-07-19] MEDS: METOPROLOL SUCCINATE 100 MG TAB.SR.24H (FP) PO SCH (11:22)
[2017-07-19] MEDS: POLYETHYLENE GLYCOL 3350 119 GM BTL PO SCH (11:22)
[2017-07-19] MEDS: PANTOPRAZOLE 40 MG TABLET (FP) PO SCH (11:22)
[2017-07-19] MEDS: RANOLAZINE E.R. 500 MG TABLET (FP) PO SCH ×2 (11:22→23:08)
[2017-07-19] MEDS: LOSARTAN 50MG/HCTZ 12.5MG 1 TAB (FP) PO SCH (13:14)
[2017-07-19] MEDS ORDERED: LORazepam 1 MG TABLET PO ONE (13:20)
--- NOTE | 2017-07-19 17:29 | PN ---
Teaching Attending Note Name of Resident: Malinda Camacho ATTENDING PHYSICIAN STATEMENT I saw and evaluated the patient. I reviewed the resident's note and discussed the case with the resident. I agree with the resident's findings and plan as documented. SUBJECTIVE:currently asymptomatic. states she came to the ER due to abdominal pain which has since resolved. states that her daughter has been dragging her to all these doctor appointments but that shes fine. was started on a medication for her abdominal pain recently which helped a lot. does not recall name. does not admit to having increasing confusion or forgetfulness. denies CP , SOB, fever, chills, photophobia, N/V/C/D, neck stiffness, hallucinations ( visual or tactile) OBJECTIVE: Last Vital Signs Temp Pulse Resp BP Pulse Ox 98.7 F 98 H 20 130/72 96 07/19/17 09:46 07/19/17 09:46 07/19/17 09:46 07/19/17 09:46 07/19/17 10:00 General NAD A&O x2 (self and location) did not know month or date but was aware of president PAULINE EOAK PERRL, no photophobia, neck supple, negative brudniki,kernig sign CV S1 S2 RRR no murmur/rub/gallop Lungs CTA B/L no wheezing or crackles ABodmen soft NT/ND no suprapubic tenderness or distention Extremities no pedal edema no asterixsis ASSESSMENT AND PLAN: 69yo F wtih PMH dementia, TIA, HTN, DM, COPD, GI bleed, and recently discovered stomach mass with elevated CEA presented for AMS 1. Acute metabolic encephalopathy- concern for brain mets vs seizure vs medication induced vs progression of dementia. pt appears to be more oriented then first presented. no reports of bowel/bladder incontinence or tonic/clonic movements for possible seizure like activity. MRI and EEG ordered. TSH, Vitb12, ammonia and folate wnl. Mg level pending. no signs of infection or hypercarbia to be contributing to mental status. no events of hypotension. reported that pt was recently started on risperdone although this is uncommon started for dementia. will call PMD for collateral information. Neuro on board. will cont to monitor 2. HTN- controlled. cont home medications 3. Macrocutic anemia- likely dilutional. no signs or reports of bleeding. will repeat in AM 4. abdominal pain- now resolved. likely due to mass vs intermittent constipation. last BM was 2 days ago. will monitor 5. DM- hold oral agents. bgm, iss 6. COPD- no signs of exacerbation. on home O2, saturating at 97% on 2L NC 7. DVT ppx- lovenox 8. PT eval. will need to d/w daughter baseline mental status
[2017-07-19] MEDS ORDERED: INSULIN (NOVOLOG) ASPART 100 UNITS/ML 10ML VIAL ONE (17:47)
--- NOTE | 2017-07-19 18:08 | PN ---
Physical Exam: SUBJECTIVE: Patient seen and examined at bedside. Pt AAOx2. Pt confused when spoken to. Spoke to daughter at length, stated that mother has become increasingly forgetful over the past few years. She has started to forget her words mid sentence and has called out for relatives who have . OBJECTIVE: Vital Signs Period Temp Pulse Resp BP Sys/Cox Pulse Ox Last 24 Hr 98.5 F-98.7 F 80-98 18-20 130-149/72-87 95-97 GENERAL: The patient is AAOx2, in no acute distress, on 2L NC 02 HEAD: Normal with no signs of trauma. EYES: PERRL, extraocular movements intact, sclera anicteric, conjunctiva clear. NECK: Trachea midline, full range of motion, supple. LUNGS: Breath sounds equal, clear to auscultation bilaterally, no wheezes, no crackles, no accessory muscle use. HEART: Regular rate and rhythm, S1, S2 without murmur, rub or gallop. ABDOMEN: Soft, nontender, nondistended, normoactive bowel sounds, no guarding, no rebound, no hepatosplenomegaly, no masses. EXTREMITIES: 2+ posterior tibial pulses, warm, well-perfused, no edema. NEUROLOGICAL: Cranial nerves difficult to assess d/t pt's confusion PSYCH: confused, AAOx2 Laboratory Results - last 24 hr 07/18/17 07/18/17 07/19/17 19:55 22:51 05:57 WBC RBC Hgb Hct MCV MCH MCHC RDW Plt Count MPV Neutrophils % Lymphocytes % Monocytes % Eosinophils % Basophils % Sodium Potassium Chloride Carbon Dioxide Anion Gap BUN Creatinine Creat Clearance w eGFR POC Glucometer [id number] 80 89 Random Glucose Calcium Total Bilirubin AST ALT Alkaline Phosphatase Ammonia Total Protein Albumin Vitamin B12 Serum Folate TSH 07/19/17 07/19/17 07/19/17 06:00 06:00 06:00 WBC 3.8 L D RBC 4.30 Hgb 13.4 D Hct 42.1 MCV 97.8 H MCH 31.2 MCHC 31.9 L RDW 14.1 Plt Count 243 D MPV 8.6 Neutrophils % 59.0 Lymphocytes % 29.2 Monocytes % 9.6 Eosinophils % 1.6 Basophils % 0.6 Sodium 142 Potassium 3.8 Chloride 103 Carbon Dioxide 30 Anion Gap 9 BUN 14 Creatinine 0.7 Creat Clearance w eGFR > 60 POC Glucometer Random Glucose 84 Calcium 10.2 H Total Bilirubin 0.4 D AST 9 L D ALT 13 D Alkaline Phosphatase 66 D Ammonia 19 Total Protein 5.8 L D Albumin 2.8 L D Vitamin B12 Serum Folate 40 H TSH 0.60 D 07/19/17 07/19/17 07/19/17 06:00 11:34 16:53 WBC RBC Hgb Hct MCV MCH MCHC RDW Plt Count MPV Neutrophils % Lymphocytes % Monocytes % Eosinophils % Basophils % Sodium Potassium Chloride Carbon Dioxide Anion Gap BUN Creatinine Creat Clearance w eGFR POC Glucometer 157 164 Random Glucose Calcium Total Bilirubin AST ALT Alkaline Phosphatase Ammonia Total Protein Albumin Vitamin B12 672 Serum Folate TSH Active Medications Generic Name Dose Route Start Last Admin Trade Name Freq PRN Reason Stop Dose Admin Acetaminophen 650 mg 07/18/17 21:39 Tylenol - PO Q6H PRN FEVER OR PAIN Albuterol Sulfate 2 puff 07/18/17 20:48 Ventolin Hfa Inhaler - IH Q4H PRN Albuterol/Ipratropium 1 amp 07/18/17 21:34 07/19/17 06:35 Duoneb - NEB 1 amp Q6H PRN Administration SHORTNESS OF BREATH Amlodipine Besylate 10 mg 07/19/17 22:00 Norvasc - PO HS IVANIA Enoxaparin Sodium 30 mg 07/19/17 10:00 Lovenox - SQ DAILY IVANIA Gabapentin 300 mg 07/18/17 22:00 07/18/17 22:56 Neurontin - PO 300 mg HS IVANIA Administration HCTZ/Losartan Potassium 1 tab 07/19/17 10:00 07/19/17 13:14 Hyzaar - PO 1 tab DAILY IVANIA Administration Insulin Aspart 1 vial 07/18/17 22:00 07/19/17 17:48 Novolog Vial Sliding Scale - SQ 2 units ACHS IVANIA Administration Protocol Melatonin 10 mg 07/18/17 22:37 Melatonin PO HS PRN Metoprolol Succinate 100 mg 07/19/17 10:00 07/19/17 11:22 Toprol Xl - PO 100 mg DAILY IVANIA Administration Mometasone Furoate 1 puff 07/18/17 22:45 07/18/17 22:52 Asmanex 220mcg - IH 1 puff HS IVANIA Administration Pantoprazole Sodium 40 mg 07/19/17 10:00 07/19/17 11:22 Protonix - PO 40 mg DAILY IVANIA Administration Polyethylene Glycol 17 gm 07/19/17 10:00 07/19/17 11:22 Miralax (For Daily Use) - PO 17 gm DAILY IVANIA Administration Ranolazine 500 mg 07/18/17 22:00 07/19/17 11:22 Ranexa - PO 500 mg BID IVANIA Administration Risperidone 1 mg 07/18/17 22:00 07/18/17 23:00 Risperdal - PO 1 mg HS IVANIA Administration ASSESSMENT/PLAN: 71 y/o F with PMH dementia, TIA, HTN, abdominal mass with recently elevated CEA level, who was placed in obs for AMS. #Metabolic encephalopathy possibly secondary to brain mets (from breast CA) vs. dementia/delirium -AAOx2 -As per daughter, mother has become increasingly forgetful and confused over past few yrs -Pt history breast CA, possible brain mets causing sx, altered mentation -CA spread also possible with Ca 11.5 (corrected value) -TSH, Vitamin B12, Folate, ammonia levels all WNL -F/u MRI -F/u EEG -F/u PT for pt's baseline activity status # HTN -Continue toprol xl 100mg PO daily Hyzaar 50/12.5mg PO daily Ranexa 500mg PO BID Norvasc 10mg PO daily #DM -holding glipizide and metformin -ISS, BGM #COPD -pt currently on 2L NC - sat 95% this AM #DVT prophylaxis -Lovenox 30 mg SQ daily F/E/N -monitor electrolytes -diabetic/low sodium diet Visit type - Emergency Visit Emergency Visit: No - New Patient This patient is new to me today: Yes Date on this admission: 07/19/17 - Critical Care Critical Care patient: No
[2017-07-19] MEDS ORDERED: LORazepam 2 MG/ML SDV VIAL IVPUSH ONE (20:00)
[2017-07-19] MEDS ORDERED: PT OWN MED DRAWER 7, Y5N ONE (23:05)
[2017-07-19] MEDS: amLODIPine BESYLATE 10 MG TABLET (FP) PO SCH (23:08)
[2017-07-19] MEDS: MOMETASONE FUROATE 220 MCG/IH INHALER IH SCH (23:08)
[2017-07-19] MEDS: risperiDONE 1 MG TABLET (FP) PO SCH (23:08)
[2017-07-19] MEDS: GABAPENTIN 300 MG CAPSULE (FP) PO SCH (23:08)
[2017-07-20 07:28] LABS: MCH 31.3 pg (25.7-33.7); MEAN CELL VOLUME 97.7 fl (80-96); MEAN PLT VOLUME 8.5 fl (7.5-11.1); PLATELET COUNT 252 K/MM3 (134-434); RDW 14.4 % (11.6-15.6); WHITE BLOOD COUNT 4.2 K/mm3 (4.0-10.0)
[2017-07-20 07:39] LABS: ANION GAP 7 (8-16); CALCIUM 10.2 mg/dL (8.5-10.1); CO2 33 mmol/L (21-32); CREATININE 0.7 mg/dL (0.55-1.02); GLUCOSE,RANDOM 122 mg/dL (74-106); MAGNESIUM 2.1 mg/dL (1.8-2.4)
[2017-07-20] MEDS: ACETAMINOPHEN 325 MG TABLET (FP) PO PRN ×3 (08:24→22:31)
[2017-07-20] MEDS ORDERED: PT OWN MED DRAWER 7, Y5N ONE ×3 (08:58→21:02)
[2017-07-20] MEDS: RANOLAZINE E.R. 500 MG TABLET (FP) PO SCH ×2 (09:06→21:34)
[2017-07-20] MEDS: METOPROLOL SUCCINATE 100 MG TAB.SR.24H (FP) PO SCH (09:06)
[2017-07-20] MEDS: LOSARTAN 50MG/HCTZ 12.5MG 1 TAB (FP) PO SCH (09:06)
[2017-07-20] MEDS: PANTOPRAZOLE 40 MG TABLET (FP) PO SCH (09:06)
[2017-07-20] MEDS: POLYETHYLENE GLYCOL 3350 119 GM BTL PO SCH (09:06)
[2017-07-20] MEDS: INSULIN SLIDING SCALE (NOVOLOG) 1 VIAL SQ SCH ×4 (11:40→21:47)
[2017-07-20] MEDS ORDERED: INSULIN (NOVOLOG) ASPART 100 UNITS/ML 10ML VIAL ONE (11:46)
[2017-07-20] MEDS: ENOXAPARIN NA (PORCINE) 30 MG/0.3 ML DISP.SYRIN SQ SCH (11:52)
[2017-07-20] MEDS: ALBUTEROL SO4 2.5/IPRATROPIUM 0.5 INH SOL 3 ML VIAL.NEB. NEB SCH ×4 (12:38→21:58)
--- NOTE | 2017-07-20 14:28 | PN ---
Teaching Attending Note Name of Resident: Malinda Camacho ATTENDING PHYSICIAN STATEMENT I saw and evaluated the patient. I reviewed the resident's note and discussed the case with the resident. I agree with the resident's findings and plan as documented. SUBJECTIVE:currently asymptomatic. denies Cp, SOB, fever, chills, N/V/C/D, confusion or agitation OBJECTIVE: Last Vital Signs Temp Pulse Resp BP Pulse Ox 98.7 F 85 20 104/59 97 07/20/17 13:57 07/20/17 13:57 07/20/17 13:57 07/20/17 13:57 07/20/17 10:00 General NAD A&O x2 (self and location) ASSESSMENT AND PLAN: 69yo F wtih PMH dementia, TIA, HTN, DM, COPD, GI bleed, and recently discovered stomach mass with elevated CEA presented for AMS 1. Acute metabolic encephalopathy- concern for brain mets vs seizure vs medication induced vs progression of dementia. as per daughter who is present at bedside she is at her baseline mental status. appears that this has been a stepwise progression over the past year of her increasing forgetfulness. concerned she is no longer able to live at home alone. MRI done yesterday however appears it was a poor study as pt was unable to lay still, even with ativan given. EEG done but not read. lab workup negative. evaluated by neuro. i do not think that repeating MRI is necessary at this time as pt is back to baseline mental status and this can be further pursued as outpatient if symptoms reoccur and/or after stomach mass bx. as per daughter was placed on risperdone in [facility] for agitation and that it has improved since starting this medication. no recent adjustment in medications 2. HTN- controlled. cont home medications 3. Macrocutic anemia- likely dilutional. no signs or reports of bleeding. Hgb stable. iron studies pending 4. abdominal pain- now resolved. likely due to mass vs intermittent constipation. last BM was 2 days ago. will monitor 5. DM- hold oral agents. bgm, iss 6. COPD- no signs of exacerbation. on home O2, saturating at 97% on 2L NC 7. DVT ppx- lovenox 8. PT eval to see if qualifies for [facility]. if not will need to d/w daughter about placement for [facility] vs home with [facility]. pt does not seem agreeable to placement at this time.
--- NOTE | 2017-07-20 19:54 | PN ---
Physical Exam: SUBJECTIVE: Patient seen and examined at bedside. Still AAOx2 (doesn't know the year), however seems less confused than yesterday. OBJECTIVE: Vital Signs Period Temp Pulse Resp BP Sys/Cox Pulse Ox Last 24 Hr 97.7 F-99.0 F 80-89 20-20 104-134/59-79 97-97 GENERAL: The patient is awake, alert, and AAOx2, in no acute distress. HEAD: Normal with no signs of trauma. EYES: PERRL, extraocular movements intact, sclera anicteric, conjunctiva clear. No ptosis. NECK: Trachea midline, supple. LUNGS: mild wheezing appreciated b/l HEART: Regular rate and rhythm, S1, S2 without murmur, rub or gallop. ABDOMEN: tender to palpation in LLQ, non-distended, normoactive bowel sounds, no guarding, no rebound, no hepatosplenomegaly, no masses. EXTREMITIES: 2+ posterior tibial pulses, warm, well-perfused, no edema. NEUROLOGICAL: Cranial nerves II through XII grossly intact. Laboratory Results - last 24 hr 07/19/17 07/20/17 07/20/17 23:18 06:00 06:00 WBC 4.2 RBC 4.27 Hgb 13.3 Hct 41.7 MCV 97.7 H MCH 31.3 MCHC 32.0 RDW 14.4 Plt Count 252 MPV 8.5 Sodium 143 Potassium 3.8 Chloride 103 Carbon Dioxide 33 H Anion Gap 7 L BUN 18 D Creatinine 0.7 POC Glucometer 150 Random Glucose 122 H D Calcium 10.2 H Magnesium 2.1 07/20/17 07/20/17 07/20/17 06:44 11:24 17:42 WBC RBC Hgb Hct MCV MCH MCHC RDW Plt Count MPV Sodium Potassium Chloride Carbon Dioxide Anion Gap BUN Creatinine POC Glucometer 126 270 158 Random Glucose Calcium Magnesium Active Medications Generic Name Dose Route Start Last Admin Trade Name Freq PRN Reason Stop Dose Admin Acetaminophen 650 mg 07/18/17 21:39 07/20/17 15:59 Tylenol - PO 650 mg Q6H PRN Administration FEVER OR PAIN Albuterol Sulfate 2 puff 07/18/17 20:48 Ventolin Hfa Inhaler - IH Q4H PRN Albuterol/Ipratropium 1 amp 07/20/17 10:00 07/20/17 14:43 Duoneb - NEB 1 amp Q4HWA IVANIA Administration Amlodipine Besylate 10 mg 07/19/17 22:00 07/19/17 23:08 Norvasc - PO 10 mg HS IVANIA Administration Enoxaparin Sodium 30 mg 07/20/17 11:00 07/20/17 11:52 Lovenox - SQ 30 mg DAILY IVANIA Administration Gabapentin 300 mg 07/18/17 22:00 07/19/17 23:08 Neurontin - PO 300 mg HS IVANIA Administration HCTZ/Losartan Potassium 1 tab 07/19/17 10:00 07/20/17 09:06 Hyzaar - PO 1 tab DAILY IVANIA Administration Insulin Aspart 1 vial 07/18/17 22:00 07/20/17 17:43 Novolog Vial Sliding Scale - SQ 2 units ACHS IVANIA Administration Protocol Melatonin 10 mg 07/18/17 22:37 Melatonin PO HS PRN Metoprolol Succinate 100 mg 07/19/17 10:00 07/20/17 09:06 Toprol Xl - PO 100 mg DAILY IVANIA Administration Mometasone Furoate 1 puff 07/18/17 22:45 07/19/17 23:08 Asmanex 220mcg - IH 1 puff HS IVANIA Administration Pantoprazole Sodium 40 mg 07/19/17 10:00 07/20/17 09:06 Protonix - PO 40 mg DAILY IVANIA Administration Polyethylene Glycol 17 gm 07/19/17 10:00 07/20/17 09:06 Miralax (For Daily Use) - PO 17 gm DAILY IVANIA Administration Ranolazine 500 mg 07/18/17 22:00 07/20/17 09:06 Ranexa - PO 500 mg BID IVANIA Administration Risperidone 1 mg 07/18/17 22:00 07/19/17 23:08 Risperdal - PO 1 mg HS IVANIA Administration ASSESSMENT/PLAN: 71 y/o F with PMH dementia, TIA, HTN, abdominal mass with recently elevated CEA level, who was placed in obs for AMS. #Metabolic encephalopathy possibly secondary to brain mets (from breast CA) vs. dementia/delirium -Pt back at baseline mentation as per daughter -MRI: moderate atrophy, ventricular dilation, chronic microvascular changes and old lacunar infarct, but poor study -F/u EEG -pending report -PT: full weight bearing with walker, 100 feet # HTN -Continue toprol xl 100mg PO daily Hyzaar 50/12.5mg PO daily Ranexa 500mg PO BID Norvasc 10mg PO daily #DM -holding glipizide and metformin -ISS, BGM #COPD -pt currently on 2L NC sat 97% this AM #DVT prophylaxis -Lovenox 30 mg SQ daily F/E/N -monitor electrolytes -diabetic/low sodium diet Disposition -pt does not want to go to a rehab facility, uses home [facility] services Visit type - Emergency Visit Emergency Visit: No - New Patient This patient is new to me today: No - Critical Care Critical Care patient: No
[2017-07-20] MEDS: GABAPENTIN 300 MG CAPSULE (FP) PO SCH (21:33)
[2017-07-20] MEDS: amLODIPine BESYLATE 10 MG TABLET (FP) PO SCH (21:33)
[2017-07-20] MEDS: risperiDONE 1 MG TABLET (FP) PO SCH (21:34)
[2017-07-20] MEDS: MOMETASONE FUROATE 220 MCG/IH INHALER IH SCH (21:35)
[2017-07-21] MEDS: ACETAMINOPHEN 325 MG TABLET (FP) PO PRN (05:49)
[2017-07-21] MEDS: INSULIN SLIDING SCALE (NOVOLOG) 1 VIAL SQ SCH ×2 (06:28→12:02)
[2017-07-21] MEDS: ALBUTEROL SO4 2.5/IPRATROPIUM 0.5 INH SOL 3 ML VIAL.NEB. NEB SCH ×3 (06:38→16:57)
[2017-07-21 07:35] LABS: MCH 31.5 pg (25.7-33.7); MCHC 32.1 g/dl (32.0-36.0); MEAN CELL VOLUME 98.1 fl (80-96); MEAN PLT VOLUME 8.2 fl (7.5-11.1); PLATELET COUNT 247 K/MM3 (134-434); RDW 14.1 % (11.6-15.6)
[2017-07-21 07:57] LABS: ANION GAP 5 (8-16); CALCIUM 10.4 mg/dL (8.5-10.1); CO2 31 mmol/L (21-32); CREATININE 0.9 mg/dL (0.55-1.02); GLUCOSE,RANDOM 129 mg/dL (74-106)
[2017-07-21 08:58] VITALS: BP 126/75; PULSE 85; TEMP 98.4
[2017-07-21] MEDS: METOPROLOL SUCCINATE 100 MG TAB.SR.24H (FP) PO SCH (10:29)
[2017-07-21] MEDS: RANOLAZINE E.R. 500 MG TABLET (FP) PO SCH (10:29)
[2017-07-21] MEDS: PANTOPRAZOLE 40 MG TABLET (FP) PO SCH (10:29)
[2017-07-21] MEDS: ENOXAPARIN NA (PORCINE) 30 MG/0.3 ML DISP.SYRIN SQ SCH (10:29)
[2017-07-21] MEDS: LOSARTAN 50MG/HCTZ 12.5MG 1 TAB (FP) PO SCH (10:29)
[2017-07-21] MEDS: POLYETHYLENE GLYCOL 3350 119 GM BTL PO SCH (10:32)
[2017-07-21] MEDS ORDERED: INSULIN (NOVOLOG) ASPART 100 UNITS/ML 10ML VIAL ONE (11:57)
[2017-07-21] MEDS ORDERED: guaiFENesin 200 MG/10 ML 10 ML UNIT-DOSE CUPS PO ONE (12:15)
--- NOTE | 2017-07-21 15:52 | DS ---
Physical Exam: SUBJECTIVE: Patient seen and examined at bedside. Pt still AAOx2 (does not know the year). Denies headache, fever, chills, dysuria. States that she does not want to attend subacute rehab, daughter in agreement. OBJECTIVE: Vital Signs Period Temp Pulse Resp BP Sys/Cox Pulse Ox Last 24 Hr 98.4 F-99.0 F 75-85 16-20 94-126/63-75 97-98 PHYSICAL EXAM GENERAL: The patient is awake, AAOx2, in no acute distress. Not on NC HEAD: Normal with no signs of trauma. EYES: PERRL, extraocular movements intact, sclera anicteric, conjunctiva clear. ENT: Ears normal, nares patent, oropharynx clear without exudates, moist mucous membranes. NECK: Trachea midline, supple. LUNGS: Breath sounds equal, clear to auscultation bilaterally, no wheezes, no crackles, no accessory muscle use. HEART: Regular rate and rhythm, S1, S2 without murmur, rub or gallop. ABDOMEN: Soft, nontender, nondistended, normoactive bowel sounds, no guarding, no rebound, no hepatosplenomegaly, no masses. EXTREMITIES: 2+ posterior tibial pulses, warm, well-perfused, no edema. NEUROLOGICAL: Cranial nerves II through XII grossly intact. VITALS TREND/LABS Vitals Trend 07/18/17 07/18/17 07/18/17 10:39 12:32 15:57 Temperature 97.9 F 98.7 F Pulse Rate 89 Blood Pressure 138/88 O2 Sat by Pulse 100 96 96 Oximetry (%) 07/18/17 07/19/17 07/19/17 19:58 03:00 03:09 Temperature 98.5 F Pulse Rate 97 H Blood Pressure 147/81 O2 Sat by Pulse 97 95 Oximetry (%) 07/19/17 07/19/17 07/19/17 05:56 09:46 10:00 Temperature 98.5 F 98.7 F Pulse Rate 95 H 98 H Blood Pressure 149/87 130/72 O2 Sat by Pulse 96 Oximetry (%) 07/19/17 07/19/17 07/19/17 13:45 18:00 18:41 Temperature 98.8 F Pulse Rate 92 H 86 Blood Pressure 143/76 O2 Sat by Pulse 95 95 Oximetry (%) 07/20/17 07/20/17 07/20/17 01:03 09:00 09:08 Temperature 97.7 F 98.2 F Pulse Rate 89 88 Blood Pressure 134/79 110/71 O2 Sat by Pulse 97 Oximetry (%) 07/20/17 07/20/17 07/20/17 10:00 13:57 18:00 Temperature 98.7 F Pulse Rate 85 Blood Pressure 104/59 O2 Sat by Pulse 97 97 Oximetry (%) 07/20/17 07/20/17 07/20/17 18:09 21:00 22:00 Temperature 99.0 F 98.4 F Pulse Rate 80 82 Blood Pressure 119/63 107/75 O2 Sat by Pulse 98 Oximetry (%) 07/21/17 07/21/17 07/21/17 01:29 06:08 08:57 Temperature 98.5 F 98.4 F Pulse Rate 75 85 Blood Pressure 94/66 126/75 O2 Sat by Pulse 98 Oximetry (%) 07/21/17 10:00 Temperature Pulse Rate Blood Pressure O2 Sat by Pulse 98 Oximetry (%) Laboratory Tests 07/18/17 07/18/17 07/18/17 13:35 13:35 14:05 WBC 5.9 Hgb 15.0 D Hct 45.1 Plt Count 306 D Puncture Site Right radial ABG pH 7.42 ABG pCO2 at Pt Temp 44.9 D ABG pO2 at Pt Temp 55.0 L ABG HCO3 28.8 H ABG O2 Sat (Measured) 88.6 L ABG O2 Content 17.1 ABG Base Excess 4.1 H Sodium 140 Potassium 4.5 Carbon Dioxide 32 BUN 13 D Creatinine 0.7 D Calcium 11.3 H Total Bilirubin 0.6 D AST 17 ALT 18 D Alkaline Phosphatase 85 Total Protein 7.5 Albumin 3.8 07/19/17 07/19/17 07/20/17 06:00 06:00 06:00 WBC 3.8 L D 4.2 Hgb 13.4 D 13.3 Hct 42.1 41.7 Plt Count 243 D 252 Puncture Site ABG pH ABG pCO2 at Pt Temp ABG pO2 at Pt Temp ABG HCO3 ABG O2 Sat (Measured) ABG O2 Content ABG Base Excess Sodium 142 Potassium 3.8 Carbon Dioxide 30 BUN 14 Creatinine 0.7 Calcium 10.2 H Total Bilirubin 0.4 D AST ALT 13 D Alkaline Phosphatase 66 D Total Protein 5.8 L D Albumin 2.8 L D 07/20/17 07/21/17 07/21/17 06:00 06:50 06:50 WBC 5.0 Hgb 12.6 Hct 39.3 Plt Count 247 Puncture Site ABG pH ABG pCO2 at Pt Temp ABG pO2 at Pt Temp ABG HCO3 ABG O2 Sat (Measured) ABG O2 Content ABG Base Excess Sodium 143 144 Potassium 3.8 4.0 Carbon Dioxide 33 H 31 BUN 18 D 25 H D Creatinine 0.7 0.9 D Calcium 10.2 H 10.4 H Total Bilirubin AST ALT Alkaline Phosphatase Total Protein Albumin IMAGING 07/18/17: CXR: no evidence of acute pulmonary disease 07/18/17: EKG: normal sinus rhythm, RBBB, possible LA enlargement 07/18/17: Head CT: mild volume loss, moderate chronic microvascular ischemic changes. L caudate head focal old infarct again seen. No gross acute intracranial pathology identified. 07/19/17: Brain MRI: poor study, confirmed L caudate old lacunar infarct, no mass lesion or gross acute infarct identified 07/19/17: EEG: within normal limits HOSPITAL COURSE: Date of Admission:07/18/17 Date of Discharge: 07/21/17 Admit diagnosis: altered mental status Pre-admission course 71 yr old F with COPD(2L O2 dependent), abdominal mass in the distal stomach ( with recent elevation in CEA), and dementia, who was brought to the ED by daughter for worsening AMS for past week and lower abdominal pain since last night. History was provided by daughter as patient was a poor historian. For the past week, daughter states that pt was calling long-time known family and friend by different names. Since then, she has had intermittent episodes of gazing into the distance, without responding for 5-10 minutes, as well as b/l upper extremity tremors. Pt is AAOx3 at baseline. She was also told that her CEA level was elevated by Dr. Malone and is planned to have an outpatient endoscopy next week. Pt's abdominal started last night b/l in RLQ and LLQ, which daughter attributed to constipation, and decided to give her more miralax. This morning, [employer] stated that the patient had continued to c/o severe abdominal pain so daughter brought her in. Pt also had a bitemporal pressure-like headache, non-radiating, which was intermittent for the past 2 days. Denied facial droop, dysphagia, use of any new medications, or sick contacts. ER course was notable for: (1) Head CT (2) Neuro consult, Dr. Blount Hospital course Pt managed for metabolic encephalopathy possibly secondary to dementia. Initial workup included TSH, Vitamin B12, folate, and ammonia, which all returned WNL. Head CT showed mild volume loss, moderate chronic microvascular ischemic changes , without any new result of an acute infarct. EEG also returned WNL. No further testing was recommended, as pt returned to her baseline mentation by end of her stay. Pt was also seen by PT and was recommended to follow with subacute rehab. She is to follow up with neurologist upon d/c. Minutes to complete discharge: 32 Discharge Summary Reason For Visit: CONFUSION Current Active Problems Headache (Chronic) Condition: Stable - Instructions Diet, Activity, Other Instructions: You were recently in the hospital for a change in your mental status. You may resume activity as tolerated. We recommend that you complete subacute rehab for your condition. Please follow up with your primary care physician, and a neurologist, Dr. Blount in 1 week. You can discuss the results of the EEG that was done at the hospital during this visit. He can also decide whether you will need another MRI. You may continue your home medications. If you develop shortness of breath, chest pain, or any new symptoms, please go to the hospital. We hope you feel better soon! Referrals: Ramona Hill MD [Primary Care Provider] - Evin Blount DO [Staff Physician] - Disposition: HOME - Home Medications Comprehensive Discharge Medication List: Ambulatory Orders Albuterol Sulfate Inhaler - [Ventolin HFA Inhaler -] 2 inh PO Q4H 07/18/17 Amlodipine Besylate 10 mg PO DAILY 07/18/17 Aspirin [Aspirin EC] 81 mg PO DAILY 07/18/17 Fluticasone Propionate [Flovent Diskus] 50 mcg IH BID 07/18/17 Gabapentin [Neurontin] 300 mg PO DAILY 07/18/17 Glipizide 5 mg PO DAILY 07/18/17 Ipratropium/Albuterol Sulfate [Combivent Respimat Inhal [place]] 4 gm IH BID 07/18 Losartan/Hydrochlorothiazide [Losartan-Hctz 50-12.5 mg Tab] 1 each PO DAILY Melatonin 10 mg PO HS 07/18/17 Metformin HCl 500 mg PO DAILY 07/18/17 Metoprolol Succinate [Toprol XL -] 100 mg PO DAILY 07/18/17 Omeprazole 40 mg PO DAILY 07/18/17 Polyethylene Glycol 3350 [Miralax 119 gm Btl -] 17 gm PO DAILY 07/18/17 Ranolazine [Ranexa] 500 mg PO BID 07/18/17 Risperidone [Risperdal -] 1 mg PO HS 07/18/17 Acetaminophen [Tylenol .Regular Strength -] 650 mg PO Q6H PRN #0 tablet This patient is new to me today: No Emergency Visit: No Critical Care patient: No - Discharge Referral Referred to [facility] No
--- NOTE | 2017-07-21 16:10 | PN ---
Teaching Attending Note Name of Resident: Malinda Camacho ATTENDING PHYSICIAN STATEMENT I saw and evaluated the patient. I reviewed the resident's note and discussed the case with the resident. I agree with the resident's findings and plan as documented. SUBJECTIVE:asymptomatic. denies CP, SOB, fever, chills, N/V/C/D OBJECTIVE: Last Vital Signs Temp Pulse Resp BP Pulse Ox 98.4 F 85 16 126/75 98 07/21/17 08:57 07/21/17 08:57 07/21/17 08:57 07/21/17 08:57 07/21/17 10:00 General NAD A&O x2 (self and location) ASSESSMENT AND PLAN: 69yo F wtih PMH dementia, TIA, HTN, DM, COPD, GI bleed, and recently discovered stomach mass with elevated CEA presented for AMS 1. Acute metabolic encephalopathy- concern for brain mets vs seizure vs medication induced vs progression of dementia. continues to be at baseline. no reports of agitation overnight. EEG not read. will need to f/u with neuro for results and further monitoring. consider repeating MRI if there is change in mental status. 2. HTN- controlled. cont home medications 3. Macrocutic anemia- likely dilutional. no signs or reports of bleeding. Hgb stable. iron studies pending 4. abdominal pain- now resolved. likely due to mass vs intermittent constipation. last BM was 2 days ago. will monitor 5. DM- hold oral agents. bgm, iss 6. COPD- no signs of exacerbation. on home O2, saturating at 97% on 2L NC 7. DVT ppx- lovenox 8. plan was for d/c to [facility] and possible transition to assisted living. daughter arrived today and changed her mind and decided wanted to take pt home.
--- NOTE | 2017-07-24 21:54 | EKG ---
Test Reason : Blood Pressure : / mmHG Vent. Rate : 087 BPM Atrial Rate : 087 BPM P-R Int : 122 ms QRS Dur : 148 ms QT Int : 408 ms P-R-T Axes : 048 -86 017 degrees QTc Int : 490 ms POOR DATA QUALITY, INTERPRETATION MAY BE ADVERSELY AFFECTED NORMAL SINUS RHYTHM POSSIBLE LEFT ATRIAL ENLARGEMENT LEFT AXIS DEVIATION RIGHT BUNDLE BRANCH BLOCK ABNORMAL ECG WHEN COMPARED WITH ECG OF 13-JUN-2017 17:12, NO SIGNIFICANT CHANGE WAS FOUND Confirmed by CECI CORDERO MD ([id number]) on 07/24/2017 9:53:43 PM Referred By: Confirmed By:CECI CORDERO MD
== END 2017-07-21 14:20 | disposition home or self-care (01) | DRG 884 ==
LOC: JER 10:36 → JERBED 18:30 → J7W 21:47
PROVIDERS: ADMIT Internal Medicine; ATTEND Internal Medicine
PROC: 4A00X4Z Measurement of Central Nervous Electrical Activity, External Approach (ICD-10-PCS; principal; 2017-07-19)
DX: F03.90 Unspecified dementia, unspecified severity, without behavioral disturbance, psychotic disturbance, mood disturbance, and anxiety (principal); G93.41 Metabolic encephalopathy; E78.5 Hyperlipidemia, unspecified; I10 Essential (primary) hypertension; J44.9 Chronic obstructive pulmonary disease, unspecified; E11.9 Type 2 diabetes mellitus without complications; I71.9 Aortic aneurysm of unspecified site, without rupture; R19.09 Other intra-abdominal and pelvic swelling, mass and lump; E66.8 Other obesity; Z68.25 Body mass index [BMI] 25.0-25.9, adult; R10.32 Left lower quadrant pain; F32.9 Major depressive disorder, single episode, unspecified; K59.09 Other constipation; M06.80 Other specified rheumatoid arthritis, unspecified site; N28.1 Cyst of kidney, acquired; R41.0 Disorientation, unspecified; I25.10 Atherosclerotic heart disease of native coronary artery without angina pectoris; D64.9 Anemia, unspecified; Z87.891 Personal history of nicotine dependence; Z86.73 Personal history of transient ischemic attack (TIA), and cerebral infarction without residual deficits; Z99.81 Dependence on supplemental oxygen
CPT/HCPCS: 36415; 36600; 70450-TC; 70551-TC; 71010-TC; 80048; 80053; 81003; 82140; 82272; 82607; 82746; 82803; 83735; 84443; 84484; 85025; 85027; 93005; 93010; 94640; 95816; 97116-GP; 97161-GP; 99284-25; J2794

== ENCOUNTER 2017-07-26 10:52 | Day surgery (SDC) | payer OTHER ==
[2017-07-25 12:41] VITALS: BMI 28.7
[2017-07-26] MEDS ORDERED: ALBUTEROL SO4 6.7 GM HFA INHALER IH ONE (13:10)
[2017-07-26] MEDS ORDERED: ALBUTEROL SO4 2.5/IPRATROPIUM 0.5 INH SOL 3 ML VIAL.NEB. NEB ONE (13:38)
[2017-07-26 15:02] VITALS: BP 148/97; PULSE 89; TEMP 98.2
--- NOTE | 2017-08-02 08:31 | PATH ---
Surgical Pathology Report Patient Name: CHARLY RIVAS [facility]. Rec. #: [id number] /Age/Gender: 1945 (Age: 71) / F Account: [id number] Location: U-ENDOSCOPY Taken: 07/26/2017 Received: 07/27/2017 Reported: 08/02/2017 Physicians: Armaan Lemus M.D. Specimen(s) Received BX SUBMUCOSAL MASS PYLORUS Clinical History Abnormal CT scan Undiagnosed submucosal mass pylorus Final Diagnosis PYLORUS, SUBMUCOSAL MASS, BIOPSY: GASTRIC ANTRAL MUCOSA WITH MODERATE CHRONIC GASTRITIS, REACTIVE GASTROPATHY AND FOCALLY PROMINENT BLAND APPEARING SMOOTH MUSCLE (SEE COMMENT). IMMUNOSTAIN FOR H. PYLORI IS NEGATIVE FOR ORGANISMS. Comment: Immunohistochemical stains performed and interpreted at [facility] show the following: SMM-HC immunostains highlight smooth muscle fibers, S100 shows weak non-specific reactivity. Additional immunohistochemical stains performed at [place], [place] ([id number]) and interpreted as [facility] show the following: DOG1 and CD117 (c-kit) immunostains and negative; CD34 shows nonspecific reactivity. The morphologic findings in the immunoprofile are consistent with prominent smooth muscle and may represent smooth muscle hyperplasia or leiomyoma in proper endoscopic settings. Endoscopic correlation and followup are suggested. Electronically Signed Gilbert Reynolds M.D. Gross Description Received in formalin, labeled "biopsy submucosal mass pylorus" are 2 myers, irregular portions of soft tissue measuring 0.2 and 0.3 cm. in greatest dimension. The specimens are submitted in toto in one cassette. 07/27/201707/27/2017
== END 2017-07-26 15:03 | disposition home or self-care (01) ==
LOC: JASU-ENDO 10:52
PROVIDERS: ATTEND Internal Medicine Gastroenterology
PROC: 0DJ08ZZ Inspection of Upper Intestinal Tract, Via Natural or Artificial Opening Endoscopic (ICD-10-PCS; principal; 2017-07-26 11:30)
DX: K29.50 Unspecified chronic gastritis without bleeding (principal); D13.1 Benign neoplasm of stomach
CPT/HCPCS: 88305-TC; 88341-TC; 88342-TC

== ENCOUNTER 2017-08-23 13:28 | Inpatient (IN) | payer OTHER ==
[2017-08-23] MEDS ORDERED: methylPREDNISolone NA SUCC 125 MG/2 ML VIAL ONE (14:15)
[2017-08-23] MEDS ORDERED: ALBUTEROL SO4 2.5/IPRATROPIUM 0.5 INH SOL 3 ML VIAL.NEB. NEB ONE ×3 (14:15→14:26)
[2017-08-23] MEDS ORDERED: MAGNESIUM SULF 50% (8.12 MEQ/2 ML-1 GM VIAL) ONE (14:15)
--- NOTE | 2017-08-23 14:17 | PDOC ---
History of Present Illness - General Chief Complaint: Shortness of Breath Stated Complaint: SOB Time Seen by Provider: 08/23/17 14:17 Past History - Past Medical History Allergies/Adverse Reactions: Allergies Allergy/AdvReac Type Severity Reaction Status Date / Time No Known Allergies Allergy Verified 07/18/17 22:34 Home Medications: Ambulatory Orders Albuterol Sulfate Inhaler - [Ventolin HFA Inhaler -] 2 inh PO Q4H PRN 07/18/17 Amlodipine Besylate 10 mg PO HS 07/18/17 Aspirin [Aspirin EC] 81 mg PO DAILY 07/18/17 Gabapentin [Neurontin] 300 mg PO HS 07/18/17 Glipizide 5 mg PO DAILY 07/18/17 Losartan/Hydrochlorothiazide [Losartan-Hctz 50-12.5 mg Tab] 1 each PO DAILY Metformin HCl 500 mg PO DAILY 07/18/17 Metoprolol Succinate [Toprol XL -] 100 mg PO DAILY 07/18/17 Omeprazole 40 mg PO DAILY 07/18/17 Polyethylene Glycol 3350 [Miralax 119 gm Btl -] 17 gm PO DAILY 07/18/17 Ranolazine [Ranexa] 500 mg PO BID 07/18/17 Risperidone [Risperdal -] 1 mg PO HS 07/18/17 Acetaminophen [Tylenol Arthritis] 650 mg PO DAILY 07/25/17 Melatonin 10 mg PO HS 07/25/17 Fluticasone Propionate [Flovent Diskus] 50 mcg IH DAILY 07/26/17 Naproxen Sodium [Aleve] 220 mg PO DAILY 07/26/17 Anemia: No Asthma: No Cancer: No Cardiac Disorders: No CVA: Yes (TIAs) COPD: Yes (PNEUMONIA) CHF: No Dementia: Yes (?? H[facility]PITALIZED FOR [facility] 07/14) Diabetes: Yes (NIDDM) GI Disorders: Yes (Rectal bleed 2013) Disorders: No HTN: Yes Hypercholesterolemia: Yes Liver Disease: Yes (FATTY) Seizures: No Thyroid Disease: No - Surgical History Abdominal Surgery: Yes (ASCENDING AORTIC ANEURYSM) Appendectomy: No Cardiac Surgery: No Cholecystectomy: Yes GI Surgery: Yes (bleeding ulcers) Lung Surgery: No Neurologic Surgery: No Orthopedic Surgery: Yes (ACL repair) - Suicide/Smoking/Psychosocial Hx Smoking Status: Yes Smoking History: Current some day smoker Have you smoked in the past 12 months: Yes Number of Cigarettes Smoked Daily: 3 If you are a former smoker, when did you quit?: 6 months Cigars Per Day: 0 'Breaking Loose' booklet given: 12/17/14 Hx Alcohol Use: No Drug/Substance Use Hx: No Substance Use Type: None Hx Substance Use Treatment: No
[2017-08-23] MEDS ORDERED: methylPREDNISolone NA SUCC 125 MG/2 ML VIAL IVPB ONE (14:26)
[2017-08-23 14:42] LABS: BASOPHIL 0.8 % (0-2.0); EOSINOPHIL 1.4 % (0-4.5); MCH 32.6 pg (25.7-33.7); MCHC 32.6 g/dl (32.0-36.0); MEAN PLT VOLUME 8.1 fl (7.5-11.1); NEUTROPHILS 67.4 % (42.8-82.8); PLATELET COUNT 272 K/MM3 (134-434); RDW 17.8 % (11.6-15.6); WHITE BLOOD COUNT 5.5 K/mm3 (4.0-10.0)
[2017-08-23 14:54] LABS: INR 1.06 (0.82-1.09); PROTHROMBIN TIME (PATIENT) 11.7 SEC (9.98-11.88)
[2017-08-23 14:57] LABS: ACTIVATED PTT 31.9 SECONDS (26.9-34.4)
[2017-08-23 15:08] LABS: ALBUMIN 3.8 g/dl (3.4-5.0); ANION GAP 8 (8-16); BILIRUBIN,TOTAL 0.4 mg/dL (0.2-1.0); CALCIUM 10.8 mg/dL (8.5-10.1); CO2 31 mmol/L (21-32); GLUCOSE,RANDOM 78 mg/dL (74-106); MAGNESIUM 2.3 mg/dL (1.8-2.4); SGOT/AST 10 U/L (15-37); SGPT/ALT 14 U/L (12-78); TOT PROT 7.4 g/dl (6.4-8.2)
[2017-08-23 15:10] LABS: ALK PHOS 73 U/L (45-117); CPK 43 IU/L (26-192); TROPONIN I 0.02 ng/ml (0.00-0.05)
--- NOTE | 2017-08-23 15:13 | CON.PULM ---
Consult Consult Specialty:: PULMONARY Referred by:: Dr. Ledesma Reason for Consultation:: respiratory failure - History of Present Illness Chief Complaint: shortness of breath History of Present Illness: 71yo female with h/o HTN, DM, hyperlipidemia, ascending aortic aneurysm, COPD, chronic hypoxic respiratory failure on home O2, LV diastolic dysfunction, rheumatoid arthritis who presents with worsening shortness of breath. Reports a cough productive of yellow sputum which is changed from her chronic clear/white sputum. Does report some subjective fevers and chills. No sick contacts or recent travel. Daughter at bedside reports left leg swelling as well. Pt denies any leg pain or tenderness. Has been sleeping on 5 pillows and experiences paroxysmal nocturnal dyspnea. Pt states she quit smoking but daughter states she saw her smoking last night. Noted to be hypoxic to 62% on presentation, being placed on BiPAP support. - History Source History Provided By: Patient, Family Member, Medical Record Limitations to Obtaining History: Clinical Condition - Past Medical History Cardio/Vascular: Yes: CAD, HTN Pulmonary: Yes: COPD Rheumatology: Yes: Rheumatoid Arthritis Endocrine: Yes: Diabetes Mellitus - Past Surgical History Past Surgical History: Yes: Hysterectomy, Appendectomy, Cholecystectomy - Alcohol/Substance Use Hx Alcohol Use: No - Smoking History Smoking history: Current some day smoker Have you smoked in the past 12 months: Yes Aproximately how many cigarettes per day: 3 If you are a former smoker, when did you quit?: 6 months Home Medications - Allergies Allergies/Adverse Reactions: Allergies Allergy/AdvReac Type Severity Reaction Status Date / Time No Known Allergies Allergy Verified 07/18/17 22:34 - Home Medications Home Medications: Ambulatory Orders Albuterol Sulfate Inhaler - [Ventolin HFA Inhaler -] 2 inh PO Q4H PRN 07/18/17 Amlodipine Besylate 10 mg PO HS 07/18/17 Aspirin [Aspirin EC] 81 mg PO DAILY 07/18/17 Gabapentin [Neurontin] 300 mg PO HS 07/18/17 Glipizide 5 mg PO DAILY 07/18/17 Losartan/Hydrochlorothiazide [Losartan-Hctz 50-12.5 mg Tab] 1 each PO DAILY Metformin HCl 500 mg PO DAILY 07/18/17 Metoprolol Succinate [Toprol XL -] 100 mg PO DAILY 07/18/17 Omeprazole 40 mg PO DAILY 07/18/17 Polyethylene Glycol 3350 [Miralax 119 gm Btl -] 17 gm PO DAILY 07/18/17 Ranolazine [Ranexa] 500 mg PO BID 07/18/17 Risperidone [Risperdal -] 1 mg PO HS 07/18/17 Acetaminophen [Tylenol Arthritis] 650 mg PO DAILY 07/25/17 Melatonin 10 mg PO HS 07/25/17 Fluticasone Propionate [Flovent Diskus] 50 mcg IH DAILY 07/26/17 Naproxen Sodium [Aleve] 220 mg PO DAILY 07/26/17 Family Disease History - Family Disease History Family Disease History: Heart Disease: Father, Brother, Sister Review of Systems - Review of Systems Constitutional: reports: Chills, Fever Eyes: denies: Recent Change in Vision HENT: denies: Nasal Congestion, Throat Pain Neck: denies: Stiffness, Tenderness Cardiovascular: reports: Edema, Shortness of Breath. denies: Chest Pain, Palpitations Respiratory: reports: Cough, Exercise Intolerance, Orthopnea, PND, SOB, SOB on Exertion, Wheezing. denies: Hemoptysis Gastrointestinal: denies: Abdominal Pain, Nausea, Vomiting Genitourinary: denies: Dysuria, Hematuria Neurological: denies: Dizziness, Headache Physical Exam Vital Sings: Vital Signs Temperature Pulse Rate 88 08/23/17 14:16 Respiratory Rate 30 H 08/23/17 14:16 Blood Pressure 128/99 08/23/17 14:16 O2 Sat by Pulse Oximetry (%) 95 08/23/17 14:52 Constitutional: Yes: Moderate Distress Eyes: Yes: Conjunctiva Clear, EOM Intact HENT: Yes: Atraumatic, Normocephalic Neck: Yes: Supple, Trachea Midline Cardiovascular: Yes: Regular Rate and Rhythm Respiratory: Yes: Rhonchi, Wheezes ...Clubbing: No Gastrointestinal: Yes: Normal Bowel Sounds, Soft. No: Tenderness Edema: Yes (LLE) Neurological: Yes: Alert, Oriented Labs: CBC, BMP 08/23/17 14:30 Imaging - Results Chest X-ray: Report Reviewed, Image Reviewed (pulmonary vascular congestion, bilateral effusions, cannot r/o RLL infiltrate) Problem List - Problems (1) Acute on chronic respiratory failure with hypoxia Code(s): J96.21 - ACUTE AND CHRONIC RESPIRATORY FAILURE WITH HYPOXIA (2) Acute on chronic diastolic (congestive) heart failure Code(s): I50.33 - ACUTE ON CHRONIC DIASTOLIC (CONGESTIVE) HEART FAILURE (3) COPD exacerbation Code(s): J44.1 - CHRONIC OBSTRUCTIVE PULMONARY DISEASE W (ACUTE) EXACERBATION (4) Diabetes mellitus Code(s): E11.9 - TYPE 2 DIABETES MELLITUS WITHOUT COMPLICATIONS Qualifiers: Diabetes mellitus type: type 2 Diabetes mellitus complication status: without complication Diabetes mellitus terminal operations supervisor insulin use: without terminal operations supervisor use Qualified Code(s): E11.9 - Type 2 diabetes mellitus without complications (5) Hypertension Code(s): I10 - ESSENTIAL (PRIMARY) HYPERTENSION Qualifiers: Hypertension type: essential hypertension Qualified Code(s): I10 - Essential (primary) hypertension Assessment/Plan Acute on Chronic Hypoxic Respiratory Failure Acute on Chronic Diastolic Heart Failure Acute COPD Exacerbation r/o Pneumonia HTN DM Smoker - IV lasix - monitor urine output, creatinine - daily weights, I/Os - IV medrol - inhaled bronchodilators standing and PRN - O2 to keep SpO2 >90% - BiPAP to assist in work of breathing - no fevers or WBC, CXR more likely consistent with CHF but cannot rule out RLL infiltrate, low threshold for antibiotics - smoking cessation - if remains dependent on BiPAP, will need ICU monitoring - DVT prophylaxis Thank you for this consult Jayden James MD
[2017-08-23] MEDS ORDERED: FUROSEMIDE 40 MG/4 ML INJECTABLE VIAL IVPUSH ONE (15:20)
[2017-08-23] MEDS ORDERED: ALBUTEROL SO4 0.083% IH SOL 2.5 MG/3 ML VIAL.NEB. NEB PRN (15:21)
[2017-08-23 15:37] LABS: ARTERIAL BLD GAS O2 SATURATION 89.5 % (90-98.9); ARTERIAL BLOOD GAS BASE EXCESS 2.8 meq/l (-2-2); ARTERIAL BLOOD GAS HCO3 29.3 meq/L (22-26); ARTERIAL BLOOD GAS pH 7.34 (7.35-7.45)
[2017-08-23 15:40] LABS: VENT RATE 14
[2017-08-23 15:41] LABS: MECH. VENT. NO; TYPE OF O2 BIPAP
[2017-08-23 15:42] LABS: ALLENS TEST POSITIVE; ART PUNCT SITE RIGHT RADIAL; METHEMOGLOBIN 0.4 % (0.4-1.5); PT. ON O2? YES
[2017-08-23 15:43] LABS: ARTERIAL BLOOD GAS PO2 63.9 mmHg (70-100); LPM/O2% 60
--- NOTE | 2017-08-23 15:43 | PDOC ---
History of Present Illness - History of Present Illness Initial Comments: 08/23/17 15:47 71 y/o F with a PMHx of COPD (on 2L O2), HTN, NIDDM, HLD, Aortic aneurysm presents to the ED with daughter sent by PCP for SOB and wheezing for 2 days. Daughter reports worsening left pedal edema and productive cough. Patient denies fever, chills. Denies nausea, vomiting, diarrhea. PCP: Dr. Ramona Hill Pottery Decoration Designer: Dr. Tee Key Financial Services Agent: Dr. Neto Valdez <Malka Miner - Last Filed: 08/23/17 16:10> <Swathi Ledesma - Last Filed: 08/23/17 17:29> - General Chief Complaint: Shortness of Breath Stated Complaint: SOB Time Seen by Provider: 08/23/17 14:17 Past History <Malka Miner - Last Filed: 08/23/17 16:10> - Past Medical History Anemia: No Asthma: No Cancer: No Cardiac Disorders: No CVA: Yes (TIAs) COPD: Yes (PNEUMONIA) CHF: No Dementia: Yes (?? HOSPITALIZED FOR [facility] 07/14) Diabetes: Yes (NIDDM) GI Disorders: Yes (Rectal bleed 2013) Disorders: No HTN: Yes Hypercholesterolemia: Yes Liver Disease: Yes (FATTY) Seizures: No Thyroid Disease: No - Surgical History Abdominal Surgery: Yes (ASCENDING AORTIC ANEURYSM) Appendectomy: No Cardiac Surgery: No Cholecystectomy: Yes GI Surgery: Yes (bleeding ulcers) Lung Surgery: No Neurologic Surgery: No Orthopedic Surgery: Yes (ACL repair) - Immunization History Immunization Up to Date: Yes - Suicide/Smoking/Psychosocial Hx Smoking Status: Yes Smoking History: Current some day smoker Have you smoked in the past 12 months: Yes Number of Cigarettes Smoked Daily: 3 If you are a former smoker, when did you quit?: 6 months Cigars Per Day: 0 Information on smoking cessation initiated: No 'Breaking Loose' booklet given: 12/17/14 Hx Alcohol Use: No Drug/Substance Use Hx: No Substance Use Type: None Hx Substance Use Treatment: No <Swathi Ledesma - Last Filed: 08/23/17 17:29> - Past Medical History Allergies/Adverse Reactions: Allergies Allergy/AdvReac Type Severity Reaction Status Date / Time No Known Allergies Allergy Verified 07/18/17 22:34 Home Medications: Ambulatory Orders Albuterol Sulfate Inhaler - [Ventolin HFA Inhaler -] 2 inh PO Q4H PRN 07/18/17 Amlodipine Besylate 10 mg PO HS 07/18/17 Aspirin [Aspirin EC] 81 mg PO DAILY 07/18/17 Gabapentin [Neurontin] 300 mg PO HS 07/18/17 Glipizide 5 mg PO DAILY 07/18/17 Losartan/Hydrochlorothiazide [Losartan-Hctz 50-12.5 mg Tab] 1 each PO DAILY Metformin HCl 500 mg PO DAILY 07/18/17 Metoprolol Succinate [Toprol XL -] 100 mg PO DAILY 07/18/17 Omeprazole 40 mg PO DAILY 07/18/17 Polyethylene Glycol 3350 [Miralax 119 gm Btl -] 17 gm PO DAILY 07/18/17 Ranolazine [Ranexa] 500 mg PO BID 07/18/17 Risperidone [Risperdal -] 1 mg PO HS 07/18/17 Acetaminophen [Tylenol Arthritis] 650 mg PO DAILY 07/25/17 Melatonin 10 mg PO HS 07/25/17 Fluticasone Propionate [Flovent Diskus] 50 mcg IH DAILY 07/26/17 Naproxen Sodium [Aleve] 220 mg PO DAILY 07/26/17 Review of Systems - Review of Systems Comments:: 08/23/17 15:47 GENERAL/CONSTITUTIONAL: No fever or chills. No weakness. HEAD, EYES, EARS, NOSE AND THROAT: No change in vision. No ear pain or discharge. No sore throat. CARDIOVASCULAR: (+) SOB, pedal edema. No chest pain RESPIRATORY: (+) cough, wheezing, No hemoptysis. GASTROINTESTINAL: No nausea, vomiting, diarrhea or constipation. GENITOURINARY: No dysuria, frequency, or change in urination. MUSCULOSKELETAL: No joint or muscle swelling or pain. No neck or back pain. SKIN: No rash NEUROLOGIC: No headache, vertigo, loss of consciousness, or change in strength/ sensation. ENDOCRINE: No increased thirst. No abnormal weight change. HEMATOLOGIC/LYMPHATIC: No anemia, easy bleeding, or history of blood clots. ALLERGIC/IMMUNOLOGIC: No hives or skin allergy. <Malka Miner - Last Filed: 08/23/17 16:10> *Physical Exam - Vital Signs Last Vital Signs Temp Pulse Resp BP Pulse Ox 89 30 H 128/99 88 L 08/23/17 15:15 08/23/17 14:16 08/23/17 14:16 08/23/17 15:15 - Physical Exam Comments: 08/23/17 16:10 GENERAL: Awake, alert, and fully oriented. Respiratory distress, conversational dyspnea. HEAD: No signs of trauma EYES: PERRLA, EOMI, sclera anicteric, conjunctiva clear ENT: Auricles normal inspection, hearing grossly normal, nares patent, oropharynx clear without exudates. Moist mucosa NECK: Normal ROM, supple, no lymphadenopathy, JVD, or masses LUNGS: Diminished breath sound and expiratory wheezing diffusely. HEART: Tachycardic rate and regular rhythm, normal S1 and S2, no murmurs, rubs or gallops ABDOMEN: Soft, nontender, normoactive bowel sounds. No guarding, no rebound. No masses EXTREMITIES: Trace edema in LLE greater than on the right. No clubbing or cyanosis. No cords, erythema, tenderness. NEUROLOGICAL: Cranial nerves II through XII grossly intact. Normal speech, normal gait SKIN: Warm, Dry, normal turgor, no rashes or lesions noted. <Malka Miner - Last Filed: 08/23/17 16:10> - Vital Signs Last Vital Signs Temp Pulse Resp BP Pulse Ox 89 30 H 128/99 88 L 08/23/17 15:15 08/23/17 14:16 08/23/17 14:16 08/23/17 15:15 <Swathi Ledesma - Last Filed: 08/23/17 17:29> Heart Score/ECG Review - ECG Intrepretation Comment:: 08/23/17 17:26 sinus at 81 w rbbb, mild st depression v3-4 <Swathi Ledesma - Last Filed: 08/23/17 17:29> ED Treatment Course - LABORATORY CBC & Chemistry Diagram: 08/23/17 14:30 08/23/17 14:34 - ADDITIONAL ORDERS Additional order review: Laboratory Results 08/23/17 08/23/17 08/23/17 15:30 14:34 14:34 PT with INR 11.70 INR 1.06 PTT (Actin FS) 31.9 Puncture Site Right radial ABG pH 7.34 L ABG pCO2 at Pt Temp 55.8 H D ABG pO2 at Pt Temp 63.9 L ABG HCO3 29.3 H ABG O2 Sat (Measured) 89.5 L ABG O2 Content 16.2 ABG Base Excess 2.8 H Reji Test Positive Carboxyhemoglobin 3.4 H Methemoglobin 0.4 O2 Delivery Device Bipap Oxygen Flow Rate [address] Vent Rate 14 Mechanical Rate No PEEP 0.0 Pressure Support Vent 12/5 Sodium 142 Potassium 4.6 Chloride 103 Carbon Dioxide 31 Anion Gap 8 BUN 19 H D Creatinine 1.0 Creat Clearance w eGFR 54.35 Random Glucose 78 D Calcium 10.8 H Magnesium 2.3 Total Bilirubin 0.4 AST 10 L ALT 14 Alkaline Phosphatase 73 Creatine Kinase 43 Troponin I 0.02 B-Natriuretic Peptide Total Protein 7.4 D Albumin 3.8 D 08/23/17 14:30 PT with INR INR PTT (Actin FS) Puncture Site ABG pH ABG pCO2 at Pt Temp ABG pO2 at Pt Temp ABG HCO3 ABG O2 Sat (Measured) ABG O2 Content ABG Base Excess Reji Test Carboxyhemoglobin Methemoglobin O2 Delivery Device Oxygen Flow Rate Vent Mode Vent Rate Mechanical Rate PEEP Pressure Support Vent Sodium Potassium Chloride Carbon Dioxide Anion Gap BUN Creatinine Creat Clearance w eGFR Random Glucose Calcium Magnesium Total Bilirubin AST ALT Alkaline Phosphatase Creatine Kinase Troponin I B-Natriuretic Peptide 3945.88 H Total Protein Albumin 08/23/17 14:30 RBC 4.47 MCV 100.0 H MCHC 32.6 RDW 17.8 H D MPV 8.1 Neutrophils % 67.4 Lymphocytes % 22.4 D Monocytes % 8.0 Eosinophils % 1.4 Basophils % 0.8 - Medications Given in the ED: ED Medications Discontinued Medications Generic Name Dose Route Start Last Admin Trade Name Freq PRN Reason Stop Dose Admin Albuterol/Ipratropium 1 amp 08/23/17 14:26 08/23/17 14:26 Duoneb - NEB 08/23/17 14:27 1 amp ONCE ONE Administration Albuterol/Ipratropium 1 amp 08/23/17 14:26 08/23/17 14:35 Duoneb - NEB 08/23/17 14:27 1 amp ONCE ONE Administration Methylprednisolone Sodium Succinate 125 mg 08/23/17 14:26 08/23/17 14:35 Solu-Medrol - IVPB 08/23/17 14:27 125 mg ONCE ONE Administration <Malka Miner - Last Filed: 08/23/17 16:10> - LABORATORY CBC & Chemistry Diagram: 08/23/17 14:30 08/23/17 14:34 - ADDITIONAL ORDERS Additional order review: Laboratory Results 08/23/17 08/23/17 14:34 14:34 PT with INR 11.70 INR 1.06 PTT (Actin FS) 31.9 Sodium 142 Potassium 4.6 Chloride 103 Carbon Dioxide 31 Anion Gap 8 BUN 19 H D Creatinine 1.0 Creat Clearance w eGFR 54.35 Random Glucose 78 D Calcium 10.8 H Magnesium 2.3 Total Bilirubin 0.4 AST 10 L ALT 14 Alkaline Phosphatase 73 Creatine Kinase 43 Troponin I 0.02 Total Protein 7.4 D Albumin 3.8 D 08/23/17 14:30 RBC 4.47 MCV 100.0 H MCHC 32.6 RDW 17.8 H D MPV 8.1 Neutrophils % 67.4 Lymphocytes % 22.4 D Monocytes % 8.0 Eosinophils % 1.4 Basophils % 0.8 - RADIOLOGY Radiology Studies Ordered: Category Date Time Status CHEST X-RAY PORTABLE* [RAD] Stat Radiology 08/23/17 14:25 Completed - Medications Given in the ED: ED Medications Discontinued Medications Generic Name Dose Route Start Last Admin Trade Name Freq PRN Reason Stop Dose Admin Albuterol/Ipratropium 1 amp 08/23/17 14:26 08/23/17 14:26 Duoneb - NEB 08/23/17 14:27 1 amp ONCE ONE Administration Albuterol/Ipratropium 1 amp 08/23/17 14:26 08/23/17 14:35 Duoneb - NEB 08/23/17 14:27 1 amp ONCE ONE Administration Methylprednisolone Sodium Succinate 125 mg 08/23/17 14:26 08/23/17 14:35 Solu-Medrol - IVPB 08/23/17 14:27 125 mg ONCE ONE Administration <Swathi Ledesma - Last Filed: 08/23/17 17:29> Medical Decision Making - Critical Care Time Total Critical Care Time (minutes): 30 Critical Care Statement: The care of this patient involved high complexity decision making to prevent further life threatening deterioration of the patient 's condition and/or to evaluate & treat vital organ system(s) failure or risk of failure. - Medical Decision Making 08/23/17 17:27 a/p: 71yo female with resp distress -bipap -concern for chf vs copd exacerbation 08/23/17 17:[address] anthony, who is at the bedside to see the patietn 08/23/17 17:[address] ponce who accepts pt to service under darmiento 08/23/17 17:28 CHF on xray - will give lasix 08/23/17 17:28 icu level of care, requiring bipap 08/23/17 17:29 labs, ekg, cxr <Swathi Ledesma - Last Filed: 08/23/17 17:29> *DC/Admit/Observation/Transfer - Attestations Scribe Attestion: 08/23/17 15:48 Documentation prepared by Malka Miner, acting as medical case worker for Swathi Ledesma DO. <Malka Miner - Last Filed: 08/23/17 16:10> - Discharge Dispostion Admit: Yes - Attestations Physician Attestion: 08/23/17 15:45 I, Dr. Swathi Ledesma DO, attest that this document has been prepared under my direction and personally reviewed by me in its entirety. I further attest, that it accurately reflects all work, treatment, procedures and medical decision -making performed by me. <Swathi Ledesma - Last Filed: 08/23/17 17:29> Diagnosis at time of Disposition: Respiration abnormal, CHF (congestive heart failure) - Discharge Dispostion Condition at time of disposition: Critical
--- NOTE | 2017-08-23 17:04 | HP ---
CHIEF COMPLAINT: worsening shortness of breath, even with home oxygen PCP: Dr. Ramona Hill GI: Dr. Lemus Body And Frame Man: Dr. Tee Key Clicking Machine Operator: Dr. Neto Valdez HISTORY OF PRESENT ILLNESS: Patient is a 71 year old female with a significant past medical history of COPD (home oxygen dependent on 2 liters), abdominal mass in the distal stomach, recently found to have elevated CEA on last admission, hypertension, HLD, ascending aortic aneurysm, chronic hypoxic respiratory failure, diabetes mellitus, TIAs, depression and dementia. She was brought into the ED (sent by PCP) for worsening shortness of breath and wheezing for approximately 2 days. Patient reports a productive cough with worsening shortness of breath. She reports a productive cough with yellow sputum and reports subjective fever and chills. She denies any sick contact or recent travel. She denies any leg pain or tenderness. She has been having worsening shortness of breath when laying in bed and needs to be propped up on a number of pillows. On arrival to the ED she was noted to be 62% on room air. She was placed on bipap and was seen by a foreign broadcast specialist. Patient denies any recent travel. She denies fever, chills, nausea, vomiting or diarrhea. ER course was notable for: (1) shortness of breath with bipap support at rest (2) Trop negative x 1 (3) Chest xray: heart size enlarged with increased interstitial markings consistent with pulmonary vascular congestion. Hazing at lung base suspicious for small pleural effusion. Recent Travel: PAST SURGICAL HISTORY: Social History: Smoking: current smoker Alcohol: denies Drugs: denies PAST MEDICAL HISTORY: COPD (home oxygen dependent on 2 liters), abdominal mass in the distal stomach, recently found to have elevated CEA on last admission, hypertension, HLD, ascending aortic aneurysm, chronic hypoxic respiratory failure. diabetes mellitus,TIAs, depression and dementia. PAST SURGICAL HISTORY: Arthoscopy left knee surgery x 2, total abdominal hysterectomy, appendectomy, cholecystectomy Social History: Smoking: current everyday Alcohol: denies Drugs: denies Family History: Allergies No Known Allergies Allergy (Verified 07/18/17 22:34) HOME MEDICATIONS: Home Medications Medication Instructions Recorded Albuterol Sulfate Inhaler - 2 inh PO Q4H PRN 07/18/17 [Ventolin HFA Inhaler -] Amlodipine Besylate 10 mg PO HS 07/18/17 Aspirin [Aspirin EC] 81 mg PO DAILY 07/18/17 Gabapentin [Neurontin] 300 mg PO HS 07/18/17 Glipizide 5 mg PO DAILY 07/18/17 Losartan/Hydrochlorothiazide 1 each PO DAILY 07/18/17 [Losartan-Hctz 50-12.5 mg Tab] Metformin HCl 500 mg PO DAILY 07/18/17 Metoprolol Succinate [Toprol XL -] 100 mg PO DAILY 07/18/17 Omeprazole 40 mg PO DAILY 07/18/17 Polyethylene Glycol 3350 [Miralax 17 gm PO DAILY 07/18/17 119 gm Btl -] Ranolazine [Ranexa] 500 mg PO BID 07/18/17 Risperidone [Risperdal -] 1 mg PO HS 07/18/17 Acetaminophen [Tylenol Arthritis] 650 mg PO DAILY 07/25/17 Melatonin 10 mg PO HS 07/25/17 Fluticasone Propionate [Flovent 50 mcg IH DAILY 07/26/17 Diskus] Naproxen Sodium [Aleve] 220 mg PO DAILY 07/26/17 REVIEW OF SYSTEMS CONSTITUTIONAL: Absent: fever, chills, diaphoresis, generalized weakness, malaise, loss of appetite, weight change HEENT: Absent: rhinorrhea, nasal congestion, throat pain, throat swelling, difficulty swallowing, mouth swelling, ear pain, eye pain, visual changes CARDIOVASCULAR: Absent: chest pain, syncope, palpitations, irregular heart rate, lightheadedness , peripheral edema RESPIRATORY: Absent: stridor, hemoptysis GASTROINTESTINAL: Absent: abdominal pain, abdominal distension, nausea, vomiting, diarrhea, constipation, melena, hematochezia GENITOURINARY: Absent: dysuria, frequency, urgency, hesitancy, hematuria, flank pain, genital pain MUSCULOSKELETAL: Absent: myalgia, arthralgia, joint swelling, back pain, neck pain SKIN: Absent: rash, itching, pallor HEMATOLOGIC/IMMUNOLOGIC: Absent: easy bleeding, easy bruising, lymphadenopathy, frequent infections ENDOCRINE: Absent: unexplained weight gain, unexplained weight loss, heat intolerance, cold intolerance NEUROLOGIC: Absent: headache, focal weakness or paresthesias, dizziness, unsteady gait, seizure, mental status changes, bladder or bowel incontinence PSYCHIATRIC: Absent: anxiety, depression, suicidal or homicidal ideation, hallucinations. PHYSICAL EXAMINATION Vital Signs - 24 hr 08/23/17 08/23/17 15:52 16:45 Pulse Rate [ 80 81 Left Apical] Respiratory 16 22 Rate Blood Pressure 129/85 125/95 [Right Arm] O2 Sat by Pulse 94 L 97 Oximetry (%) GENERAL: Awake, alert, and fully oriented, in no acute distress. HEAD: Normal with no signs of trauma. EYES: Pupils equal, round and reactive to light, extraocular movements intact, sclera anicteric, conjunctiva clear. No lid lag. EARS, NOSE, THROAT: Ears normal, nares patent, oropharynx clear without exudates. Moist mucous membranes. NECK: Normal range of motion, supple without lymphadenopathy, JVD, or masses. LUNGS: Diminished breath sounds to auscultation, scattered fine wheezes HEART: Regular rate and rhythm ABDOMEN: Soft, nontender, not distended, normoactive bowel sounds, no guarding, no rebound, no masses. No hepatomegaly or splenomegaly. MUSCULOSKELETAL: Normal range of motion at all joints. No bony deformities or tenderness. No CVA tenderness. UPPER EXTREMITIES: 2+ pulses, warm, well-perfused. No cyanosis. No clubbing. No peripheral edema. LOWER EXTREMITIES: No peripheral edema. NEUROLOGICAL: Speech limited secondary to bipap mask, calm, cooperative PSYCHIATRIC: Cooperative. Good eye contact. Appropriate mood and affect. SKIN: Warm, dry, normal turgor, no rashes or lesions noted, normal capillary refill. ASSESSMENT/PLAN: Patient is a 71 year old female with a significant past medical history of COPD (home oxygen dependent on 2 liters), abdominal mass in the distal stomach, recently found to have elevated CEA on last admission, hypertension, HLD, ascending aortic aneurysm, chronic hypoxic respiratory failure, diabetes mellitus, TIAs, depression, rheumatoid arthritis and dementia. . She was brought into the ED (sent by PCP) for worsening shortness of breath and wheezing for approximately 2 days. Patient reports a productive cough with worsening shortness of breath. She reports a productive cough with yellow sputum and reports subjective fever and chills. She denies any sick contact or recent travel. She denies any leg pain or tenderness. She has been having worsening shortness of breath when laying in bed and needs to be propped up on a number of pillows. On arrival to the ED she was noted to be 62% on room air. She was placed on bipap and was seen by a foreign broadcast specialist. Patient denies any recent travel. She denies fever, chills, nausea, vomiting or diarrhea. Pulmonary: Shortness of breath - acute on chronic COPD excacerbation vs. CHF exac., vs. PE A/P: Patient is home oxygen dependent Chest xray: heart size enlarged with increased interstitial markings consistent with pulmonary vascular congestion. Hazing at lung base suspicious for small pleural effusion. Poor oxygen saturation on room air on admission, now on bipap Given Solumedrol 125mg IV x 1, placed on bipap Duonebs, Solumedrol 40mg q8 Levaquin 500mg iv x 1 Sputum culture Lasix 40mg x 1 given for worsening congestion on chest xray Will doppler lower extremities to rule out DVT CTA as per pulmonary to rule out PE Pulmonary following Endocrine: NIDM II A/P: Hold metformin , start on Novolog Monitor blood sugars Cardiology: Rule out ACS as cause of acute shortness of breath A/P: trend troponins, consult patient's instructional design consultant Monitor on cardiac monitoring Hypertension: A/P: On Metoprolol, Hyzaar, Ranexa, Norvasc Also on ASA Patient reports taking all her home meds this morning Psyche: Depression/Dementia A/P: Continue Risperdal 1mg PO Endocrine: Rheumatoid Arthritis A/P: On neurontin 300mg DVT: Lovenox 40mg daily GI: Protonix F.E.N. Fluids: PO as tolerated, congestion on xray, hold IVF Electrolytes: monitor Nutrition: as tolerated, diabetic diet Disposition: Full code. t
[2017-08-23] MEDS: ALBUTEROL SO4 2.5/IPRATROPIUM 0.5 INH SOL 3 ML VIAL.NEB. NEB SCH (17:05)
[2017-08-23] MEDS ORDERED: LEVOFLOXACIN 500 MG IVPB 100 ML IVPB ONE ×2 (18:38→18:51)
[2017-08-23 19:13] LABS: ARTERIAL BLD GAS O2 SATURATION 86.3 % (90-98.9); ARTERIAL BLOOD GAS BASE EXCESS 2.6 meq/l (-2-2); ARTERIAL BLOOD GAS HCO3 29.3 meq/L (22-26); ARTERIAL BLOOD GAS PO2 57.1 mmHg (70-100); ARTERIAL BLOOD GAS pH 7.34 (7.35-7.45)
[2017-08-23 19:14] LABS: ALLENS TEST POSITIVE; ART PUNCT SITE LEFT RADIAL; PT. ON O2? YES
[2017-08-23 19:38] LABS: LPM/O2% 60%
[2017-08-23 19:39] LABS: VENT RATE 14
--- NOTE | 2017-08-23 19:46 | EKG ---
Test Reason : Blood Pressure : / mmHG Vent. Rate : 081 BPM Atrial Rate : 081 BPM P-R Int : 150 ms QRS Dur : 144 ms QT Int : 406 ms P-R-T Axes : 059 266 -16 degrees QTc Int : 471 ms NORMAL SINUS RHYTHM (RBBB AND LEFT ANTERIOR FASCICULAR BLOCK) T WAVE ABNORMALITY, CONSIDER LATERAL ISCHEMIA ABNORMAL ECG WHEN COMPARED WITH ECG OF 18-JUL-2017 14:23, T WAVE INVERSION IN V4-V5. REPEAT EKG IF CLINICALLY INDICATED Confirmed by SALVADOR KRISHNAMURTHY MD ([id number]) on 08/23/2017 7:45:52 PM Referred By: Confirmed By:SALVADOR KRISHNAMURTHY MD
[2017-08-23 19:51] VITALS: BMI 29.5
[2017-08-23 21:20] LABS: URINE APPEARANCE CLEAR; URINE BILIRUBIN NEGATIVE (NEGATIVE); URINE BLOOD 1+ (NEGATIVE); URINE COLOR LTYELLOW; URINE GLUCOSE (UA) NEGATIVE (NEGATIVE); URINE KETONE NEGATIVE (NEGATIVE); URINE LEUK ESTERASE NEGATIVE (NEGATIVE); URINE NITRITE NEGATIVE (NEGATIVE); URINE PROTEIN NEGATIVE (NEGATIVE); URINE UROBILINOGEN NEGATIVE mg/dL (0.2-1.0)
[2017-08-23] MEDS: RANOLAZINE E.R. 500 MG TABLET (FP) PO SCH (21:24)
[2017-08-23] MEDS: CHLORHEXIDINE GLUCONATE 4% CLEANSER FOR DECOLONIZATION TP SCH (21:24)
[2017-08-23] MEDS: GABAPENTIN 300 MG CAPSULE (FP) PO SCH (21:24)
[2017-08-23] MEDS: methylPREDNISolone NA SUCC 40 MG/1 ML VIAL IVPB SCH (21:24)
[2017-08-23] MEDS: amLODIPine BESYLATE 10 MG TABLET (FP) PO SCH (21:24)
[2017-08-23] MEDS: MUPIROCIN 2% TOPICAL OINTMENT FOR DECOLONIZATION NS SCH (21:32)
[2017-08-23 22:02] LABS: URINE HYALINE CAST 4 /lpf; URINE MUCUS RARE; URINE RBC 11 /hpf (0-3); URINE WBC 1 /hpf (3-5)
[2017-08-23] MEDS: ACETAMINOPHEN 325 MG TABLET (FP) PO PRN (23:14)
[2017-08-23] MEDS: MELATONIN 5 MG TABLETS PO SCH (23:15)
[2017-08-23] MEDS: risperiDONE 1 MG TABLET (FP) PO SCH (23:15)
[2017-08-23] MEDS: INSULIN SLIDING SCALE (NOVOLOG) 1 VIAL SQ SCH (23:26)
[2017-08-24] MEDS: ALBUTEROL SO4 2.5/IPRATROPIUM 0.5 INH SOL 3 ML VIAL.NEB. NEB SCH ×4 (00:25→18:00)
[2017-08-24] MEDS: methylPREDNISolone NA SUCC 40 MG/1 ML VIAL IVPB SCH ×3 (03:22→18:44)
[2017-08-24] MEDS: INSULIN SLIDING SCALE (NOVOLOG) 1 VIAL SQ SCH ×4 (06:23→21:42)
[2017-08-24 06:33] LABS: BASOPHIL 0.1 % (0-2.0); MCHC 32.6 g/dl (32.0-36.0); MEAN CELL VOLUME 101.1 fl (80-96); MEAN PLT VOLUME 8.4 fl (7.5-11.1); NEUTROPHILS 84.2 % (42.8-82.8); PLATELET COUNT 261 K/MM3 (134-434); WHITE BLOOD COUNT 2.9 K/mm3 (4.0-10.0)
[2017-08-24] MEDS: glipiZIDE 5 MG TABLET (FP) PO SCH (06:48)
[2017-08-24 07:00] LABS: ALBUMIN 3.1 g/dl (3.4-5.0); ALK PHOS 57 U/L (45-117); ANION GAP 7 (8-16); BILIRUBIN,TOTAL 0.6 mg/dL (0.2-1.0); CALCIUM 10.2 mg/dL (8.5-10.1); CO2 34 mmol/L (21-32); CREATININE 1.2 mg/dL (0.55-1.02); GLUCOSE,RANDOM 154 mg/dL (74-106); MAGNESIUM 2.3 mg/dL (1.8-2.4); SGOT/AST 6 U/L (15-37); SGPT/ALT 11 U/L (12-78); TOT PROT 6.1 g/dl (6.4-8.2)
[2017-08-24 08:38] LABS: TROPONIN I < 0.02 ng/ml (0.00-0.05)
--- NOTE | 2017-08-24 09:59 | PN ---
Physical Exam: SUBJECTIVE: Patient seen and examined. States she feels better. OBJECTIVE: Vascular study negative for DVT Vital Signs Period Temp Pulse Resp BP Sys/Cox Pulse Ox Last 24 Hr 98.0 F-98.4 F 80-92 16-32 90-147/56-95 90-97 GENERAL: Awake, alert, and fully oriented, in moderate respiratory distress HEAD: Normal with no signs of trauma. EYES: Pupils equal, round and reactive to light, extraocular movements intact, sclera anicteric, conjunctiva clear. No lid lag. EARS, NOSE, THROAT: Ears normal, nares patent, oropharynx clear without exudates. Moist mucous membranes. NECK: Normal range of motion, supple without lymphadenopathy, JVD, or masses. LUNGS: Diminished breath sounds to auscultation, scattered fine wheezes HEART: Regular rate and rhythm ABDOMEN: Soft, nontender, not distended, normoactive bowel sounds, no guarding, no rebound, no masses. No hepatomegaly or splenomegaly. MUSCULOSKELETAL: Normal range of motion at all joints. No bony deformities or tenderness. No CVA tenderness. UPPER EXTREMITIES: 2+ pulses, warm, well-perfused. No cyanosis. No clubbing. No peripheral edema. LOWER EXTREMITIES: No peripheral edema. NEUROLOGICAL: Speech limited secondary to bipap mask, calm, cooperative PSYCHIATRIC: Cooperative. Good eye contact. Appropriate mood and affect. SKIN: Warm, dry, normal turgor, no rashes or lesions noted, normal capillary refill. Laboratory Results - last 24 hr 08/23/17 08/23/17 08/23/17 19:05 20:07 20:45 WBC RBC Hgb Hct MCV MCH MCHC RDW Plt Count MPV Neutrophils % Lymphocytes % Monocytes % Eosinophils % Basophils % Puncture Site Left radial ABG pH 7.34 L ABG pCO2 at Pt Temp 56.6 H ABG pO2 at Pt Temp 57.1 L ABG HCO3 29.3 H ABG O2 Sat (Measured) 86.3 L ABG O2 Content 16.5 ABG Base Excess 2.6 H Reji Test Positive O2 Delivery Device Bipap 12/5 Oxygen Flow Rate 60% Vent Rate 14 PEEP 0.0 Sodium Potassium Chloride Carbon Dioxide Anion Gap BUN Creatinine Creat Clearance w eGFR POC Glucometer [phone] Random Glucose Hemoglobin A1c % Calcium Magnesium Total Bilirubin AST ALT Alkaline Phosphatase Troponin I Total Protein Albumin Urine Color Ltyellow Urine Appearance Clear Urine pH 5.0 Ur Specific [place] 1.010 Urine Protein Negative Urine Glucose (UA) Negative Urine Ketones Negative Urine Blood 1+ H Urine Nitrite Negative Urine Bilirubin Negative Urine Urobilinogen Negative Urine RBC 11 Urine WBC 1 Ur Epithelial Cells Rare Hyaline Casts 4 Urine Mucus Rare 08/23/17 08/24/17 08/24/17 23:25 05:10 05:10 WBC 2.9 L D RBC 4.05 Hgb 13.4 Hct 41.0 MCV 101.1 H MCH 33.0 MCHC 32.6 RDW 17.0 H Plt Count 261 MPV 8.4 Neutrophils % 84.2 H D Lymphocytes % 13.5 D Monocytes % 2.2 L Eosinophils % 0.0 D Basophils % 0.1 Puncture Site ABG pH ABG pCO2 at Pt Temp ABG pO2 at Pt Temp ABG HCO3 ABG O2 Sat (Measured) ABG O2 Content ABG Base Excess Reji Test O2 Delivery Device Oxygen Flow Rate Vent Rate PEEP Sodium 141 Potassium 4.6 Chloride 100 Carbon Dioxide 34 H Anion Gap 7 L BUN 25 H D Creatinine 1.2 H Creat Clearance w eGFR 44.04 POC Glucometer [phone] Random Glucose 154 H D Hemoglobin A1c % Calcium 10.2 H Magnesium 2.3 Total Bilirubin 0.6 D AST 6 L D ALT 11 L D Alkaline Phosphatase 57 D Troponin I < 0.02 Total Protein 6.1 L Albumin 3.1 L Urine Color Urine Appearance Urine pH Ur Specific [place] Urine Protein Urine Glucose (UA) Urine Ketones Urine Blood Urine Nitrite Urine Bilirubin Urine Urobilinogen Urine RBC Urine WBC Ur Epithelial Cells Hyaline Casts Urine Mucus 08/24/17 08/24/17 05:10 05:10 WBC RBC Hgb Hct MCV MCH MCHC RDW Plt Count MPV Neutrophils % Lymphocytes % Monocytes % Eosinophils % Basophils % Puncture Site ABG pH ABG pCO2 at Pt Temp ABG pO2 at Pt Temp ABG HCO3 ABG O2 Sat (Measured) ABG O2 Content ABG Base Excess Reji Test O2 Delivery Device Oxygen Flow Rate Vent Rate PEEP Sodium Potassium Chloride Carbon Dioxide Anion Gap BUN Creatinine Creat Clearance w eGFR POC Glucometer Random Glucose Hemoglobin A1c % 5.8 D Calcium Magnesium Total Bilirubin AST ALT Alkaline Phosphatase Troponin I Cancelled Total Protein Albumin Urine Color Urine Appearance Urine pH Ur Specific [place] Urine Protein Urine Glucose (UA) Urine Ketones Urine Blood Urine Nitrite Urine Bilirubin Urine Urobilinogen Urine RBC Urine WBC Ur Epithelial Cells Hyaline Casts Urine Mucus Active Medications Generic Name Dose Route Start Last Admin Trade Name Freq PRN Reason Stop Dose Admin Acetaminophen 650 mg 08/23/17 18:26 08/23/17 23:14 Tylenol - PO 650 mg Q8H PRN Administration PAIN Albuterol Sulfate 1 amp 08/23/17 15:21 Ventolin 0.083% Nebulizer Soln - NEB Q4H PRN SHORT OF BREATH/WHEEZING Albuterol/Ipratropium 1 amp 08/23/17 18:00 08/24/17 07:20 Duoneb - NEB 1 amp QIDR IVANIA Administration Amlodipine Besylate 10 mg 08/23/17 22:00 08/23/17 21:24 Norvasc - PO 10 mg HS IVANIA Administration Aspirin 81 mg 08/24/17 10:00 Ecotrin - PO DAILY IVANIA Chlorhexidine Gluconate 1 applic 08/23/17 22:00 08/23/17 21:24 Hibiclens For Decolonization - TP 1 applic HS IVANIA Administration Furosemide 40 mg 08/24/17 10:00 Lasix Injection - IVPUSH DAILY IVANIA Gabapentin 300 mg 08/23/17 22:00 08/23/17 21:24 Neurontin - PO 300 mg HS IVANIA Administration Glipizide 5 mg 08/24/17 07:00 08/24/17 06:48 Glucotrol - PO 5 mg ACBK IVANIA Administration HCTZ/Losartan Potassium 1 tab 08/24/17 10:00 Hyzaar - PO DAILY IVANIA Insulin Aspart 1 vial 08/23/17 22:00 08/24/17 06:23 Novolog Vial Sliding Scale - SQ 2 units ACHS IVANIA Administration Protocol Melatonin 10 mg 08/23/17 22:00 08/23/17 23:15 Melatonin PO 10 mg HS IVANIA Administration Methylprednisolone Sodium Succinate 40 mg 08/23/17 22:00 08/24/17 03:22 Solu-Medrol - IVPB 40 mg Q8H-IV IVANIA Administration Metoprolol Succinate 100 mg 08/24/17 10:00 Toprol Xl - PO DAILY IVANIA Multivitamins/Minerals/Vitamin C 1 tab 08/24/17 10:00 Tab-A-Vit - PO DAILY IVANIA Mupirocin 1 applic 08/23/17 22:00 08/23/17 21:32 Bactroban Ointment (For Decolonization) - NS 08/28/17 21:59 1 appful BID IVANIA Administration Ranolazine 500 mg 08/23/17 22:00 08/23/17 21:24 Ranexa - PO 500 mg BID IVANIA Administration Risperidone 1 mg 08/23/17 22:00 08/23/17 23:15 Risperdal - PO 1 mg HS IVANIA Administration ASSESSMENT/PLAN: Patient is a 71 year old female with a significant past medical history of COPD (home oxygen dependent on 2 liters), abdominal mass in the distal stomach, recently found to have elevated CEA on last admission, hypertension, HLD, ascending aortic aneurysm, chronic hypoxic respiratory failure, diabetes mellitus, TIAs, depression, rheumatoid arthritis and dementia. . She was brought into the ED (sent by PCP) for worsening shortness of breath and wheezing for approximately 2 days. Patient reports a productive cough with worsening shortness of breath. She reports a productive cough with yellow sputum and reports subjective fever and chills. She denies any sick contact or recent travel. She denies any leg pain or tenderness. She has been having worsening shortness of breath when laying in bed and needs to be propped up on a number of pillows. On arrival to the ED she was noted to be 62% on room air. She was placed on bipap and was seen by a commission specialist. Patient denies any recent travel. She denies fever, chills, nausea, vomiting or diarrhea. Pulmonary: Shortness of breath - acute on chronic COPD excacerbation vs. CHF exac., vs. PE A/P: Patient is home oxygen dependent Chest xray: heart size enlarged with increased interstitial markings consistent with pulmonary vascular congestion. Hazing at lung base suspicious for small pleural effusion. On bipap, Duonebs, Solumedrol 40mg q8 Levaquin 500mg iv daily Sputum culture Lasix 40mg IV daily CTA as per pulmonary to rule out PE Pulmonary following Maintain oxygen saturations above 90% Endocrine: NIDM II A/P: Hold metformin , start on Novolog Monitor blood sugars Cardiology: Rule out ACS as cause of acute shortness of breath A/P: trend troponins Monitor on cardiac monitoring Hypertension: A/P: On Metoprolol, Hyzaar, Ranexa, Norvasc Also on ASA Patient reports compliance with her home meds Psyche: Depression/Dementia A/P: Continue Risperdal 1mg PO Endocrine: Rheumatoid Arthritis A/P: On neurontin 300mg DVT: Lovenox 40mg daily GI: Protonix F.E.N. Fluids: PO as tolerated, congestion on xray, hold IVF Electrolytes: monitor Nutrition: as tolerated, diabetic diet Disposition: Full code.
[2017-08-24] MEDS ORDERED: PT OWN MED DRAWER 7, Y5N ONE ×3 (10:07→21:20)
[2017-08-24] MEDS ORDERED: LEVOFLOXACIN 500 MG IVPB 100 ML IVPB ONE (10:15)
[2017-08-24] MEDS: RANOLAZINE E.R. 500 MG TABLET (FP) PO SCH ×2 (10:19→21:39)
[2017-08-24] MEDS: ASPIRIN COATED 81 MG TABLET.EC PO SCH (10:19)
[2017-08-24] MEDS: METOPROLOL SUCCINATE 100 MG TAB.SR.24H (FP) PO SCH (10:19)
[2017-08-24] MEDS: FUROSEMIDE 40 MG/4 ML INJECTABLE VIAL IVPUSH SCH (10:20)
[2017-08-24] MEDS: MULTIVITAMINS (DAILY MVI) TABLET (FP) PO SCH (10:20)
[2017-08-24] MEDS: MUPIROCIN 2% TOPICAL OINTMENT FOR DECOLONIZATION NS SCH ×2 (10:52→21:39)
[2017-08-24] MEDS: LOSARTAN 50MG/HCTZ 12.5MG 1 TAB (FP) PO SCH (11:00)
--- NOTE | 2017-08-24 12:02 | PN ---
Teaching Attending Note Name of Resident: Zahra Rico ATTENDING PHYSICIAN STATEMENT I saw and evaluated the patient. I reviewed the resident's note and discussed the case with the resident. I agree with the resident's findings and plan as documented. SUBJECTIVE: Pt seen and examined in the ICU. States breathing better but still hypoxic even on 50% FiO2. +cough and wheezing. No fevers or chills. OBJECTIVE: Last Vital Signs Temp Pulse Resp BP Pulse Ox 98.6 F 87 21 103/57 88 L 08/24/17 10:00 08/24/17 10:00 08/24/17 10:00 08/24/17 10:00 08/24/17 10:38 Intake & Output 08/21/17 08/22/17 08/23/17 08/24/17 23:59 23:59 23:59 23:59 Intake Total 200 Output Total 600 250 Balance -600 -50 Weight 177 lb 4.026 oz 179 lb 3.773 oz Gen: less tachypneic Heart: RRR Lung: bilateral rhonchi, wheezes Abd: soft, nontender Ext: less edema CBC, BMP 08/24/17 05:10 08/24/17 05:10 Active Medications Acetaminophen (Tylenol -) 650 mg PO Q8H PRN PRN Reason: PAIN Last Admin: 08/23/17 23:14 Dose: 650 mg Albuterol Sulfate (Ventolin 0.083% Nebulizer Soln -) 1 amp NEB Q4H PRN PRN Reason: SHORT OF BREATH/WHEEZING Albuterol/Ipratropium (Duoneb -) 1 amp NEB QIDR [facility] Last Admin: 08/24/17 11:50 Dose: 1 amp Amlodipine Besylate (Norvasc -) 10 mg PO [facility] Last Admin: 08/23/17 21:24 Dose: 10 mg Aspirin (Ecotrin -) 81 mg PO DAILY [facility] Last Admin: 08/24/17 10:19 Dose: 81 mg Chlorhexidine Gluconate (Hibiclens For Decolonization -) 1 applic TP [facility] Last Admin: 08/23/17 21:24 Dose: 1 applic Furosemide (Lasix Injection -) 40 mg IVPUSH DAILY [facility] Last Admin: 08/24/17 10:20 Dose: 40 mg Gabapentin (Neurontin -) 300 mg PO [facility] Last Admin: 08/23/17 21:24 Dose: 300 mg Glipizide (Glucotrol -) 5 mg PO ACBK [facility] Last Admin: 08/24/17 06:48 Dose: 5 mg HCTZ/Losartan Potassium (Hyzaar -) 1 tab PO DAILY [facility] Insulin Aspart (Novolog Vial Sliding Scale -) 1 vial SQ ACHS [facility] PRN Reason: Protocol Last Admin: 08/24/17 06:23 Dose: 2 units Melatonin (Melatonin) 10 mg PO HS [facility] Last Admin: 08/23/17 23:15 Dose: 10 mg Methylprednisolone Sodium Succinate (Solu-Medrol -) 40 mg IVPB Q8H-IV [facility] Last Admin: 08/24/17 10:19 Dose: 40 mg Metoprolol Succinate (Toprol Xl -) 100 mg PO DAILY [facility] Last Admin: 08/24/17 10:19 Dose: 100 mg Multivitamins/Minerals/Vitamin C (Tab-A-Vit -) 1 tab PO DAILY [facility] Last Admin: 08/24/17 10:20 Dose: 1 tab Mupirocin (Bactroban Ointment (For Decolonization) -) 1 applic NS BID [facility] Stop: 08/28/17 21:59 Last Admin: 08/24/17 10:52 Dose: 1 appful Ranolazine (Ranexa -) 500 mg PO BID [facility] Last Admin: 08/24/17 10:19 Dose: 500 mg Risperidone (Risperdal -) 1 mg PO HS [facility] Last Admin: 08/23/17 23:15 Dose: 1 mg ASSESSMENT AND PLAN: Acute on Chronic Hypoxic Respiratory Failure Acute on Chronic Diastolic Heart Failure Acute COPD Exacerbation r/o Pneumonia HTN DM Smoker - continue lasix - monitor urine output, creatinine - daily weights, I/Os - continue medrol at current dose - inhaled bronchodilators standing and PRN - O2 to keep SpO2 >90% - BiPAP to assist in work of breathing - no fevers or WBC, CXR more likely consistent with CHF but cannot rule out RLL infiltrate, low threshold for antibiotics - repeat CXR in AM - smoking cessation - DVT prophylaxis - continue ICU monitoring critical care time spent in reviewing chart, evaluating patient and formulating plan 35min Problem List - Problems (1) Acute on chronic respiratory failure with hypoxia Code(s): J96.21 - ACUTE AND CHRONIC RESPIRATORY FAILURE WITH HYPOXIA (2) Acute on chronic diastolic (congestive) heart failure Code(s): I50.33 - ACUTE ON CHRONIC DIASTOLIC (CONGESTIVE) HEART FAILURE (3) COPD exacerbation Code(s): J44.1 - CHRONIC OBSTRUCTIVE PULMONARY DISEASE W (ACUTE) EXACERBATION (4) Diabetes mellitus Code(s): E11.9 - TYPE 2 DIABETES MELLITUS WITHOUT COMPLICATIONS Qualifiers: Diabetes mellitus type: type 2 Diabetes mellitus complication status: without complication Diabetes mellitus long term care phlebotomist insulin use: without residential use Qualified Code(s): E11.9 - Type 2 diabetes mellitus without complications (5) Hypertension Code(s): I10 - ESSENTIAL (PRIMARY) HYPERTENSION Qualifiers: Hypertension type: essential hypertension Qualified Code(s): I10 - Essential (primary) hypertension
[2017-08-24] MEDS ORDERED: INSULIN (NOVOLOG) ASPART 100 UNITS/ML 10ML VIAL ONE ×2 (13:03→21:42)
--- NOTE | 2017-08-24 13:19 | PN ---
Physical Exam: SUBJECTIVE: Patient seen and examined patient resting in bed afebrile hemodynamically stable NAD. On NC 10 L while eating breakfast satting 86%, was on BIPAP immediately prior and all throughout the night. States she feels better (less dyspneic and less cough) and is close to her baseline. Admits URI prior to exacerbation onset. deneis f/c, chest pain , n/a, h/a, and pain, diarreha, constipation, dysuria. OBJECTIVE: Vital Signs Period Temp Pulse Resp BP Sys/Cox Pulse Ox Last 24 Hr 98.0 F-98.6 F 80-92 16-32 90-147/47-95 88-97 GENERAL: The patient is awake, alert, and fully oriented, in no acute distress. HEAD: Normal with no signs of trauma. EYES: PERRL, extraocular movements intact, sclera anicteric, conjunctiva clear. ENT: moist mucous membranes. NECK: supple no JVD LUNGS: diffusely restricted breath sounds HEART: Regular rate and rhythm, S1, S2 ABDOMEN: Soft, nontender, nondistended, normoactive bowel sounds, no guarding EXTREMITIES: 2+ pulses, warm, well-perfused, trace pedal edema. NEUROLOGICAL: Cranial nerves II through XII grossly intact. slightly labored speech PSYCH: Normal mood, normal affect. SKIN: Warm, dry Laboratory Results - last 24 hr 08/23/17 08/23/17 08/23/17 19:05 20:07 20:45 WBC RBC Hgb Hct MCV MCH MCHC RDW Plt Count MPV Neutrophils % Lymphocytes % Monocytes % Eosinophils % Basophils % Puncture Site Left radial ABG pH 7.34 L ABG pCO2 at Pt Temp 56.6 H ABG pO2 at Pt Temp 57.1 L ABG HCO3 29.3 H ABG O2 Sat (Measured) 86.3 L ABG O2 Content 16.5 ABG Base Excess 2.6 H Reji Test Positive O2 Delivery Device Bipap 12/5 Oxygen Flow Rate 60% Vent Rate 14 PEEP 0.0 Sodium Potassium Chloride Carbon Dioxide Anion Gap BUN Creatinine Creat Clearance w eGFR POC Glucometer [phone] Random Glucose Hemoglobin A1c % Calcium Magnesium Total Bilirubin AST ALT Alkaline Phosphatase Troponin I Total Protein Albumin Urine Color Ltyellow Urine Appearance Clear Urine pH 5.0 Ur Specific [place] 1.010 Urine Protein Negative Urine Glucose (UA) Negative Urine Ketones Negative Urine Blood 1+ H Urine Nitrite Negative Urine Bilirubin Negative Urine Urobilinogen Negative Urine RBC 11 Urine WBC 1 Ur Epithelial Cells Rare Hyaline Casts 4 Urine Mucus Rare 08/23/17 08/24/17 08/24/17 23:25 05:10 05:10 WBC 2.9 L D RBC 4.05 Hgb 13.4 Hct 41.0 MCV 101.1 H MCH 33.0 MCHC 32.6 RDW 17.0 H Plt Count 261 MPV 8.4 Neutrophils % 84.2 H D Lymphocytes % 13.5 D Monocytes % 2.2 L Eosinophils % 0.0 D Basophils % 0.1 Puncture Site ABG pH ABG pCO2 at Pt Temp ABG pO2 at Pt Temp ABG HCO3 ABG O2 Sat (Measured) ABG O2 Content ABG Base Excess Reji Test O2 Delivery Device Oxygen Flow Rate Vent Rate PEEP Sodium 141 Potassium 4.6 Chloride 100 Carbon Dioxide 34 H Anion Gap 7 L BUN 25 H D Creatinine 1.2 H Creat Clearance w eGFR 44.04 POC Glucometer [phone] Random Glucose 154 H D Hemoglobin A1c % Calcium 10.2 H Magnesium 2.3 Total Bilirubin 0.6 D AST 6 L D ALT 11 L D Alkaline Phosphatase 57 D Troponin I < 0.02 Total Protein 6.1 L Albumin 3.1 L Urine Color Urine Appearance Urine pH Ur Specific [place] Urine Protein Urine Glucose (UA) Urine Ketones Urine Blood Urine Nitrite Urine Bilirubin Urine Urobilinogen Urine RBC Urine WBC Ur Epithelial Cells Hyaline Casts Urine Mucus 08/24/17 08/24/17 05:10 05:10 WBC RBC Hgb Hct MCV MCH MCHC RDW Plt Count MPV Neutrophils % Lymphocytes % Monocytes % Eosinophils % Basophils % Puncture Site ABG pH ABG pCO2 at Pt Temp ABG pO2 at Pt Temp ABG HCO3 ABG O2 Sat (Measured) ABG O2 Content ABG Base Excess Reji Test O2 Delivery Device Oxygen Flow Rate Vent Rate PEEP Sodium Potassium Chloride Carbon Dioxide Anion Gap BUN Creatinine Creat Clearance w eGFR POC Glucometer Random Glucose Hemoglobin A1c % 5.8 D Calcium Magnesium Total Bilirubin AST ALT Alkaline Phosphatase Troponin I Cancelled Total Protein Albumin Urine Color Urine Appearance Urine pH Ur Specific [place] Urine Protein Urine Glucose (UA) Urine Ketones Urine Blood Urine Nitrite Urine Bilirubin Urine Urobilinogen Urine RBC Urine WBC Ur Epithelial Cells Hyaline Casts Urine Mucus Active Medications Generic Name Dose Route Start Last Admin Trade Name Dylan PRN Reason Stop Dose Admin Acetaminophen 650 mg 08/23/17 18:26 08/23/17 23:14 Tylenol - PO 650 mg Q8H PRN Administration PAIN Albuterol Sulfate 1 amp 08/23/17 15:21 Ventolin 0.083% Nebulizer Soln - NEB Q4H PRN SHORT OF BREATH/WHEEZING Albuterol/Ipratropium 1 amp 08/23/17 18:00 08/24/17 11:50 Duoneb - NEB 1 amp QIDR COLIN Administration Amlodipine Besylate 10 mg 08/23/17 22:00 08/23/17 21:24 Norvasc - PO 10 mg HS COLIN Administration Aspirin 81 mg 08/24/17 10:00 08/24/17 10:19 Ecotrin - PO 81 mg DAILY [facility] Administration Chlorhexidine Gluconate 1 applic 08/23/17 22:00 08/23/17 21:24 Hibiclens For Decolonization - TP 1 applic HS COLIN Administration Furosemide 40 mg 08/24/17 10:00 08/24/17 10:20 Lasix Injection - IVPUSH 40 mg DAILY [facility] Administration Gabapentin 300 mg 08/23/17 22:00 08/23/17 21:24 Neurontin - PO 300 mg HS [facility] Administration Glipizide 5 mg 08/24/17 07:00 08/24/17 06:48 Glucotrol - PO 5 mg ACBK [facility] Administration HCTZ/Losartan Potassium 1 tab 08/24/17 10:00 08/24/17 11:00 Hyzaar - PO 1 tab DAILY [facility] Administration Levofloxacin 100 mls @ 100 mls/hr 08/25/17 09:00 Levaquin 500 Mg Premixed Ivpb - IVPB 08/25/17 09:59 ONCE ONE Insulin Aspart 1 vial 08/23/17 22:00 08/24/17 13:02 Novolog Vial Sliding Scale - SQ 6 units ACHS [facility]IN Administration Protocol Melatonin 10 mg 08/23/17 22:00 08/23/17 23:15 Melatonin PO 10 mg HS [facility] Administration Methylprednisolone Sodium Succinate 40 mg 08/23/17 22:00 08/24/17 10:19 Solu-Medrol - IVPB 40 mg Q8H-IV [facility] Administration Metoprolol Succinate 100 mg 08/24/17 10:00 08/24/17 10:19 Toprol Xl - PO 100 mg DAILY [facility] Administration Multivitamins/Minerals/Vitamin C 1 tab 08/24/17 10:00 08/24/17 10:20 Tab-A-Vit - PO 1 tab DAILY [facility] Administration Mupirocin 1 applic 08/23/17 22:00 08/24/17 10:52 Bactroban Ointment (For Decolonization) - NS 08/28/17 21:59 1 appful BID [facility] Administration Ranolazine 500 mg 08/23/17 22:00 08/24/17 10:19 Ranexa - PO 500 mg BID [facility] Administration Risperidone 1 mg 08/23/17 22:00 08/23/17 23:15 Risperdal - PO 1 mg HS [facility] Administration ASSESSMENT/PLAN: 71 yo F with PMH of COPD (home O2 2L), distal gastric mass, elevated CEA, HTN, HLD, ascending aortic aneurysm, chronic hypoxic respiratory failure, DM, TIAs, depression and dementia. Neuro -AAOx3 Pulm *Acute on Chronic COPD Exacerbation with hypoxin hypercarbic respiratory failure -possibly precipitated by URI r/o PNA RLL infiltrate -duonebs QID colin -albuterol q4h prn -Medrol 40 q 8 -ABX levaquin d 1 -f/u sputum, blood cultures -BIPAP PRN for SpO2 >90% *current smoker Smoking cessation counseling at bedside CV *Possible HFPEF component contributing to resp failure (Congestion on CXR and clinical volume overload) -EKG RBBB new anterior ischemia (inverted t v4-5) -lasix 40 IV d -AM CXR -daily weights -cardio on case *HTN -losartan, toprol xl, norvasc -asa 81 d Endocrine *DM -sliding scale -BGM ACHS PLACIDO -creat 1.2 -monitor I/O, creat FEN No IVF lytes stable diabetic diet Michael, ppi Dispo: ICU monitoring Problem List - Problems (1) Acute on chronic diastolic (congestive) heart failure Code(s): I50.33 - ACUTE ON CHRONIC DIASTOLIC (CONGESTIVE) HEART FAILURE (2) Acute on chronic respiratory failure with hypoxia Code(s): J96.21 - ACUTE AND CHRONIC RESPIRATORY FAILURE WITH HYPOXIA (3) CHF (congestive heart failure) Code(s): I50.9 - HEART FAILURE, UNSPECIFIED (4) COPD exacerbation Code(s): J44.1 - CHRONIC OBSTRUCTIVE PULMONARY DISEASE W (ACUTE) EXACERBATION (5) Respiration abnormal Code(s): J98.9 - RESPIRATORY DISORDER, UNSPECIFIED (6) Acute kidney injury Code(s): N17.9 - ACUTE KIDNEY FAILURE, UNSPECIFIED (7) Acute on chronic respiratory failure with hypoxia and hypercapnia Code(s): J96.21 - ACUTE AND CHRONIC RESPIRATORY FAILURE WITH HYPOXIA J96.22 - ACUTE AND CHRONIC RESPIRATORY FAILURE WITH HYPERCAPNIA (8) COPD (chronic obstructive pulmonary disease) Code(s): J44.9 - CHRONIC OBSTRUCTIVE PULMONARY DISEASE, UNSPECIFIED (9) Diabetes mellitus Code(s): E11.9 - TYPE 2 DIABETES MELLITUS WITHOUT COMPLICATIONS Qualifiers: Diabetes mellitus type: type 2 Diabetes mellitus complication status: without complication Diabetes mellitus oil heaterman insulin use: without oil heaterman use Qualified Code(s): E11.9 - Type 2 diabetes mellitus without complications (10) Hypertension Code(s): I10 - ESSENTIAL (PRIMARY) HYPERTENSION Qualifiers: Hypertension type: essential hypertension Qualified Code(s): I10 - Essential (primary) hypertension (11) Right bundle branch block (RBBB) Code(s): I45.10 - UNSPECIFIED RIGHT BUNDLE-BRANCH BLOCK Visit type - Emergency Visit Emergency Visit: Yes ED Registration Date: 08/23/17 Care time: The patient presented to the Emergency Department on the above date and was hospitalized for further evaluation of their emergent condition. - New Patient This patient is new to me today: Yes Date on this admission: 08/24/17 - Critical Care Critical Care patient: Yes Total Critical Care Time (in minutes): 35 Critical Care Statement: The care of this patient involved high complexity decision making to prevent further life threatening deterioration of the patient 's condition and/or to evaluate & treat vital organ system(s) failure or risk of failure. - Discharge Referral Referred to [facility] Med P.C.: No
[2017-08-24] MEDS: ACETAMINOPHEN 325 MG TABLET (FP) PO PRN (14:17)
--- NOTE | 2017-08-24 14:24 | CON.CARD ---
Consult Consult Specialty:: Cardiology Referred by:: Hospitalist Reason for Consultation:: CHF - History of Present Illness Chief Complaint: Dyspnea History of Present Illness: Patient is a 71 year old female with underlying history of coronary artery disease, angina pectoris, hypertension, type 2 diabetes mellitus, COPD with history of exacerbation and rheumatoid arthritis, ascending aortic aneurysm who presents with worsening shortness of breath, cough productive of yellow sputum which is changed from her chronic clear/white sputum, orthopnea, and PND. Does report some subjective fevers and chills. She has had cardiac catheterization in 2014 after an abnormal nuclear perfusion imaging and it revealed moderately obstructed RCA (50%) and 80% RPDA. Patient was continued on medical therapy. She was seen in the office on 02/16/17. Last ascending aorta was measured at 4.3 cm. Currently she denies chest pain or palpitations, near or true symcope, noted to be hypoxic to 62% on presentation, previously placed on BiPAP support, now declining. - History Source History Provided By: Patient Limitations to Obtaining History: No Limitations - Past Medical History Cardio/Vascular: Yes: CAD, HTN Pulmonary: Yes: COPD ...: No Rheumatology: Yes: Rheumatoid Arthritis Endocrine: Yes: Diabetes Mellitus - Past Surgical History Past Surgical History: Yes: Hysterectomy, Appendectomy, Cholecystectomy - Alcohol/Substance Use Hx Alcohol Use: No - Smoking History Smoking history: Current some day smoker Have you smoked in the past 12 months: Yes Aproximately how many cigarettes per day: 3 If you are a former smoker, when did you quit?: 6 months Home Medications - Allergies Allergies/Adverse Reactions: Allergies Allergy/AdvReac Type Severity Reaction Status Date / Time No Known Allergies Allergy Verified 07/18/17 22:34 - Home Medications Home Medications: Ambulatory Orders Albuterol Sulfate Inhaler - [Ventolin HFA Inhaler -] 2 inh PO Q4H PRN 07/18/17 Amlodipine Besylate 10 mg PO HS 07/18/17 Aspirin [Aspirin EC] 81 mg PO DAILY 07/18/17 Gabapentin [Neurontin] 300 mg PO HS 07/18/17 Glipizide 5 mg PO DAILY 07/18/17 Losartan/Hydrochlorothiazide [Losartan-Hctz 50-12.5 mg Tab] 1 each PO DAILY Metformin HCl 500 mg PO DAILY 07/18/17 Metoprolol Succinate [Toprol XL -] 100 mg PO DAILY 07/18/17 Omeprazole 40 mg PO DAILY 07/18/17 Polyethylene Glycol 3350 [Miralax 119 gm Btl -] 17 gm PO DAILY 07/18/17 Ranolazine [Ranexa] 500 mg PO BID 07/18/17 Risperidone [Risperdal -] 1 mg PO HS 07/18/17 Acetaminophen [Tylenol Arthritis] 650 mg PO Q8H PRN 07/25/17 Melatonin 10 mg PO HS 07/25/17 Fluticasone Propionate [Flovent Diskus] 2 inh IH DAILY 07/26/17 Naproxen Sodium [Aleve] 2 tab PO DAILY 07/26/17 Ipratropium/Albuterol Sulfate [Combivent Respimat Inhal Alpine] 2 puff IH BID Multivitamins [Tab-A-Vit -] 1 tab PO DAILY 08/23/17 Family Disease History - Family Disease History Family Disease History: Heart Disease: Father, Brother, Sister Review of Systems - Review of Systems Respiratory: reports: Cough, Orthopnea, PND, SOB Vital Signs: Vital Signs Temperature 98.6 F 08/24/17 10:00 Pulse Rate 92 H 08/24/17 12:00 Respiratory Rate 23 08/24/17 12:00 Blood Pressure 108/47 08/24/17 12:00 O2 Sat by Pulse Oximetry (%) 88 L 08/24/17 10:38 Constitutional: Yes: No Distress, Calm Neck: Yes: Supple Respiratory: Yes: Regular, Cough, On Nasal O2, SOB Gastrointestinal: Yes: Normal Bowel Sounds, Soft, Abdomen, Obese Cardiovascular: Yes: Regular Rate and Rhythm JVD: No Carotid Bruit: No Heart Sounds: Yes: S1, S2 Murmur: Yes: Systolic Murmur, Grade 1 Edema: No - Other Data Labs, Other Data: CBC, BMP 08/24/17 05:10 08/24/17 05:10 INR, PTT INR 1.06 (0.82-1.09) 08/23/17 14:34 Troponin, BNP 08/24/17 08/24/17 05:10 05:10 Troponin I < 0.02 Cancelled Troponin, BNP 08/24/17 08/24/17 05:10 05:10 Troponin I < 0.02 Cancelled NSR @ 81 RBBB similar to previous Problem List - Problems (1) Acute on chronic diastolic (congestive) heart failure Code(s): I50.33 - ACUTE ON CHRONIC DIASTOLIC (CONGESTIVE) HEART FAILURE (2) Acute on chronic respiratory failure with hypoxia Code(s): J96.21 - ACUTE AND CHRONIC RESPIRATORY FAILURE WITH HYPOXIA (3) Acute kidney injury Code(s): N17.9 - ACUTE KIDNEY FAILURE, UNSPECIFIED (4) COPD (chronic obstructive pulmonary disease) Code(s): J44.9 - CHRONIC OBSTRUCTIVE PULMONARY DISEASE, UNSPECIFIED (5) Diabetes mellitus Code(s): E11.9 - TYPE 2 DIABETES MELLITUS WITHOUT COMPLICATIONS Qualifiers: Diabetes mellitus type: type 2 Diabetes mellitus complication status: without complication Diabetes mellitus manager intermediate insulin use: without assisted use Qualified Code(s): E11.9 - Type 2 diabetes mellitus without complications (6) Hypertension Code(s): I10 - ESSENTIAL (PRIMARY) HYPERTENSION Qualifiers: Hypertension type: essential hypertension Qualified Code(s): I10 - Essential (primary) hypertension (7) Right bundle branch block (RBBB) Code(s): I45.10 - UNSPECIFIED RIGHT BUNDLE-BRANCH BLOCK Assessment/Plan 06/14/2017 Echo: Normal LV size and fxn, abnl LV compliance, mild ao dilatation, no sig valve abnl 1. Acute on chronic hypoxic respiratory failure 2. Acute on Chronic Diastolic Heart Failure 3. Acute COPD Exacerbation 4. Coronary artery disease with obstructive RCA and RPDA, angina pectoris 5. Hypertension/hypertensive cardiovascular disease 6. Type 2 diabetes mellitus 7. Ascending thoracic aortic aneurysm 8. History of rheumatoid arthritis 9. Right bundle branch block 10. Previous history of GI bleed 11. Neutropenia 12 PLACIDO 13. Tobacco abuse PLAN: 1. IV diuresis with monitor diuretic response, renal fxn and electrolytes 2. Continue bronchodilator, nebulizer, IV steroid taper, O2 as needed to keep SpO2 >90%, BiPAP to assist in work of breathing 3. Continue ASA 81 qd, Metoprolol XL 100 qd, Hyzaar 1 qd, Amlodipine 10 qd and Ranexa 500 bid as tolerated 4. Continue DVT and GI prophylaxis 5. Thank you for consultative opportunity
[2017-08-24] MEDS ORDERED: FUROSEMIDE 40 MG/4 ML INJECTABLE VIAL IVPUSH ONE (21:30)
[2017-08-24] MEDS ORDERED: FUROSEMIDE 40 MG/4 ML INJECTABLE VIAL ONE (21:31)
[2017-08-24] MEDS ORDERED: morphine CARPU-JECT 2 MG/1 ML DISP.SYRIN IVPUSH ONE (21:34)
[2017-08-24] MEDS ORDERED: METOLAZONE 5 MG TABLET PO ONE (21:35)
[2017-08-24] MEDS: CHLORHEXIDINE GLUCONATE 4% CLEANSER FOR DECOLONIZATION TP SCH (21:39)
[2017-08-24] MEDS: GABAPENTIN 300 MG CAPSULE (FP) PO SCH (21:39)
[2017-08-24] MEDS: MELATONIN 5 MG TABLETS PO SCH (21:39)
[2017-08-24] MEDS: risperiDONE 1 MG TABLET (FP) PO SCH (21:39)
[2017-08-24] MEDS: amLODIPine BESYLATE 10 MG TABLET (FP) PO SCH (21:39)
[2017-08-24] MEDS ORDERED: FUROSEMIDE INJECTION 100 MG in DEXTROSE 5%-WATER - 90 ML IVPB SCH (21:45)
[2017-08-24] MEDS: LORazepam 2 MG/ML SDV VIAL IVPUSH PRN (23:50)
[2017-08-25] MEDS: ALBUTEROL SO4 2.5/IPRATROPIUM 0.5 INH SOL 3 ML VIAL.NEB. NEB SCH ×5 (00:05→23:13)
[2017-08-25] MEDS: methylPREDNISolone NA SUCC 40 MG/1 ML VIAL IVPB SCH ×2 (01:17→09:09)
[2017-08-25 06:20] LABS: BASOPHIL 0.2 % (0-2.0); MCH 32.3 pg (25.7-33.7); MEAN PLT VOLUME 8.4 fl (7.5-11.1); NEUTROPHILS 94.4 % (42.8-82.8); PLATELET COUNT 266 K/MM3 (134-434); RDW 17.2 % (11.6-15.6); WHITE BLOOD COUNT 7.3 K/mm3 (4.0-10.0)
[2017-08-25] MEDS ORDERED: INSULIN (NOVOLOG) ASPART 100 UNITS/ML 10ML VIAL ONE ×2 (06:45→12:05)
[2017-08-25] MEDS: glipiZIDE 5 MG TABLET (FP) PO SCH (06:50)
[2017-08-25] MEDS: INSULIN SLIDING SCALE (NOVOLOG) 1 VIAL SQ SCH ×4 (06:50→21:21)
[2017-08-25 06:56] LABS: ALBUMIN 3.1 g/dl (3.4-5.0); ALK PHOS 57 U/L (45-117); ANION GAP 9 (8-16); BILIRUBIN,TOTAL 0.3 mg/dL (0.2-1.0); CALCIUM 10.5 mg/dL (8.5-10.1); CO2 35 mmol/L (21-32); CREATININE 1.4 mg/dL (0.55-1.02); GLUCOSE,RANDOM 155 mg/dL (74-106); MAGNESIUM 2.4 mg/dL (1.8-2.4); PHOSPHOROUS 4.2 mg/dL (2.5-4.9); SGOT/AST 5 U/L (15-37); SGPT/ALT 13 U/L (12-78); TOT PROT 6.1 g/dl (6.4-8.2)
[2017-08-25] MEDS ORDERED: PT OWN MED DRAWER 7, Y5N ONE ×3 (08:55→19:54)
[2017-08-25] MEDS ORDERED: LEVOFLOXACIN 500 MG IVPB 100 ML IVPB ONE (09:00)
[2017-08-25] MEDS: METOPROLOL SUCCINATE 100 MG TAB.SR.24H (FP) PO SCH (09:09)
[2017-08-25] MEDS: RANOLAZINE E.R. 500 MG TABLET (FP) PO SCH ×2 (09:10→21:18)
[2017-08-25] MEDS: ASPIRIN COATED 81 MG TABLET.EC PO SCH (09:10)
[2017-08-25] MEDS: MULTIVITAMINS (DAILY MVI) TABLET (FP) PO SCH (09:10)
[2017-08-25] MEDS: MUPIROCIN 2% TOPICAL OINTMENT FOR DECOLONIZATION NS SCH ×2 (11:00→21:21)
[2017-08-25] MEDS: FUROSEMIDE 40 MG/4 ML INJECTABLE VIAL IVPUSH SCH (11:43)
--- NOTE | 2017-08-25 11:43 | PN ---
Progress Note, Physician History of Present Illness: Dyspnea, cough, subjective fevers resolved, weaned to NC. - Current Medication List Current Medications: Active Medications Acetaminophen (Tylenol -) 650 mg PO Q8H PRN PRN Reason: PAIN Last Admin: 08/24/17 14:17 Dose: 650 mg Albuterol Sulfate (Ventolin 0.083% Nebulizer Soln -) 1 amp NEB Q4H PRN PRN Reason: SHORT OF BREATH/WHEEZING Albuterol/Ipratropium (Duoneb -) 1 amp NEB QIDR [facility] Last Admin: 08/25/17 11:20 Dose: 1 amp Amlodipine Besylate (Norvasc -) 10 mg PO HS [facility] Last Admin: 08/24/17 21:39 Dose: 10 mg Aspirin (Ecotrin -) 81 mg PO DAILY [facility] Last Admin: 08/25/17 09:10 Dose: 81 mg Chlorhexidine Gluconate (Hibiclens For Decolonization -) 1 applic TP HS [facility] Last Admin: 08/24/17 21:39 Dose: 1 applic Furosemide (Lasix Injection -) 40 mg IVPUSH DAILY [facility] Last Admin: 08/25/17 11:43 Dose: 40 mg Gabapentin (Neurontin -) 300 mg PO HS [facility] Last Admin: 08/24/17 21:39 Dose: 300 mg Glipizide (Glucotrol -) 5 mg PO ACBK [facility] Last Admin: 08/25/17 06:50 Dose: 5 mg HCTZ/Losartan Potassium (Hyzaar -) 1 tab PO DAILY [facility] Last Admin: 08/24/17 11:00 Dose: 1 tab Insulin Aspart (Novolog Vial Sliding Scale -) 1 vial SQ ACHS [facility] PRN Reason: Protocol Last Admin: 08/25/17 06:50 Dose: 2 units Lorazepam (Ativan Injection -) 1 mg IVPUSH BID PRN PRN Reason: ANXIETY Last Admin: 08/24/17 23:50 Dose: 1 mg Melatonin (Melatonin) 10 mg PO HS [facility] Last Admin: 08/24/17 21:39 Dose: 10 mg Methylprednisolone Sodium Succinate (Solu-Medrol -) 40 mg IVPB DAILY [facility] Metoprolol Succinate (Toprol Xl -) 100 mg PO DAILY [facility] Last Admin: 08/25/17 09:09 Dose: 100 mg Multivitamins/Minerals/Vitamin C (Tab-A-Vit -) 1 tab PO DAILY [facility] Last Admin: 08/25/17 09:10 Dose: 1 tab Mupirocin (Bactroban Ointment (For Decolonization) -) 1 applic NS BID [facility] Stop: 08/28/17 21:59 Last Admin: 08/24/17 21:39 Dose: 1 appful Ranolazine (Ranexa -) 500 mg PO BID [facility] Last Admin: 08/25/17 09:10 Dose: 500 mg Risperidone (Risperdal -) 1 mg PO HS [facility] Last Admin: 08/24/17 21:39 Dose: 1 mg - Objective Vital Signs: Vital Signs Temperature 98.5 F 08/25/17 10:00 Pulse Rate 91 H 08/25/17 11:20 Respiratory Rate 25 H 08/25/17 10:00 Blood Pressure 95/64 08/25/17 10:00 O2 Sat by Pulse Oximetry (%) 92 L 08/25/17 11:20 Constitutional: Yes: No Distress, Calm Neck: Yes: Supple Cardiovascular: Yes: Regular Rate and Rhythm Respiratory: Yes: Regular, Diminished, On Nasal O2 Gastrointestinal: Yes: Normal Bowel Sounds, Soft, Abdomen, Obese Edema: No Labs: CBC, BMP 08/25/17 05:10 08/25/17 05:10 INR, PTT INR 1.06 (0.82-1.09) 08/23/17 14:34 - ....Imaging Chest X-ray: Report Reviewed (Congestion) Problem List - Problems (1) Acute on chronic diastolic (congestive) heart failure Code(s): I50.33 - ACUTE ON CHRONIC DIASTOLIC (CONGESTIVE) HEART FAILURE (2) Acute on chronic respiratory failure with hypoxia Code(s): J96.21 - ACUTE AND CHRONIC RESPIRATORY FAILURE WITH HYPOXIA (3) Acute kidney injury Code(s): N17.9 - ACUTE KIDNEY FAILURE, UNSPECIFIED (4) COPD (chronic obstructive pulmonary disease) Code(s): J44.9 - CHRONIC OBSTRUCTIVE PULMONARY DISEASE, UNSPECIFIED (5) Diabetes mellitus Code(s): E11.9 - TYPE 2 DIABETES MELLITUS WITHOUT COMPLICATIONS Qualifiers: Diabetes mellitus type: type 2 Diabetes mellitus complication status: without complication Diabetes mellitus longterm insulin use: without longterm use Qualified Code(s): E11.9 - Type 2 diabetes mellitus without complications (6) Hypertension Code(s): I10 - ESSENTIAL (PRIMARY) HYPERTENSION Qualifiers: Hypertension type: essential hypertension Qualified Code(s): I10 - Essential (primary) hypertension (7) Right bundle branch block (RBBB) Code(s): I45.10 - UNSPECIFIED RIGHT BUNDLE-BRANCH BLOCK Assessment/Plan 06/14/2017 Echo: Normal LV size and fxn, abnl LV compliance, mild ao dilatation, no sig valve abnl 1. Acute on chronic hypoxic respiratory failure 2. Acute on Chronic Diastolic Heart Failure 3. Acute COPD Exacerbation 4. Coronary artery disease with obstructive RCA and RPDA, angina pectoris 5. Hypertension/hypertensive cardiovascular disease 6. Type 2 diabetes mellitus 7. Ascending thoracic aortic aneurysm 8. History of rheumatoid arthritis 9. Right bundle branch block 10. Previous history of GI bleed 11. Neutropenia 12 PLACIDO 13. Tobacco abuse PLAN: 1. Decrease diuresis with monitor diuretic response, renal fxn and electrolytes 2. Continue bronchodilator, IV steroid taper, O2 as needed to keep SpO2 >90%, BiPAP to assist in work of breathing 3. Continue ASA 81 qd, Metoprolol XL 100 qd, Hyzaar 1 qd, Amlodipine 10 qd and Ranexa 500 bid as tolerated 4. Continue DVT and GI prophylaxis
[2017-08-25] MEDS: LOSARTAN 50MG/HCTZ 12.5MG 1 TAB (FP) PO SCH (12:00)
--- NOTE | 2017-08-25 12:07 | PN ---
Teaching Attending Note Name of Resident: Lawrence Herrera ATTENDING PHYSICIAN STATEMENT I saw and evaluated the patient. I reviewed the resident's note and discussed the case with the resident. I agree with the resident's findings and plan as documented. SUBJECTIVE: Pt seen and examined in the ICU. Breathing continues to improve. Still with cough and wheezing. No fevers or chills. CXR more congested today. OBJECTIVE: Last Vital Signs Temp Pulse Resp BP Pulse Ox 98.5 F 91 H 25 H 95/64 92 L 08/25/17 10:00 08/25/17 11:20 08/25/17 10:00 08/25/17 10:00 08/25/17 11:20 Intake & Output 08/22/17 08/23/17 08/24/17 08/25/17 23:59 23:59 23:59 23:59 Intake Total 940 165 Output Total 600 1550 1000 Balance -600 -610 -835 Weight 177 lb 4.026 oz 179 lb 3.773 oz 181 lb 1.6 oz Gen: less tachypneic Heart: RRR Lung: scattered rhonchi, wheezes Abd: soft, nontender Ext: no edema CBC, BMP 08/25/17 05:10 08/25/17 05:10 Active Medications Acetaminophen (Tylenol -) 650 mg PO Q8H PRN PRN Reason: PAIN Last Admin: 08/24/17 14:17 Dose: 650 mg Albuterol Sulfate (Ventolin 0.083% Nebulizer Soln -) 1 amp NEB Q4H PRN PRN Reason: SHORT OF BREATH/WHEEZING Albuterol/Ipratropium (Duoneb -) 1 amp NEB QIDR [facility] Last Admin: 08/25/17 11:20 Dose: 1 amp Amlodipine Besylate (Norvasc -) 10 mg PO HS [facility] Last Admin: 08/24/17 21:39 Dose: 10 mg Aspirin (Ecotrin -) 81 mg PO DAILY [facility] Last Admin: 08/25/17 09:10 Dose: 81 mg Chlorhexidine Gluconate (Hibiclens For Decolonization -) 1 applic TP HS [facility] Last Admin: 08/24/17 21:39 Dose: 1 applic Furosemide (Lasix Injection -) 40 mg IVPUSH DAILY [facility] Last Admin: 08/25/17 11:43 Dose: 40 mg Gabapentin (Neurontin -) 300 mg PO [facility] Last Admin: 08/24/17 21:39 Dose: 300 mg Glipizide (Glucotrol -) 5 mg PO ACBK [facility] Last Admin: 08/25/17 06:50 Dose: 5 mg HCTZ/Losartan Potassium (Hyzaar -) 1 tab PO DAILY [facility] Last Admin: 08/24/17 11:00 Dose: 1 tab Insulin Aspart (Novolog Vial Sliding Scale -) 1 vial SQ ACHS [facility] PRN Reason: Protocol Last Admin: 08/25/17 11:54 Dose: 4 units Lorazepam (Ativan Injection -) 1 mg IVPUSH BID PRN PRN Reason: ANXIETY Last Admin: 08/24/17 23:50 Dose: 1 mg Melatonin (Melatonin) 10 mg PO [facility] Last Admin: 08/24/17 21:39 Dose: 10 mg Methylprednisolone Sodium Succinate (Solu-Medrol -) 40 mg IVPB DAILY [facility] Metoprolol Succinate (Toprol Xl -) 100 mg PO DAILY [facility] Last Admin: 08/25/17 09:09 Dose: 100 mg Multivitamins/Minerals/Vitamin C (Tab-A-Vit -) 1 tab PO DAILY [facility] Last Admin: 08/25/17 09:10 Dose: 1 tab Mupirocin (Bactroban Ointment (For Decolonization) -) 1 applic NS BID [facility] Stop: 08/28/17 21:59 Last Admin: 08/25/17 11:00 Dose: 1 appful Ranolazine (Ranexa -) 500 mg PO BID [facility] Last Admin: 08/25/17 09:10 Dose: 500 mg Risperidone (Risperdal -) 1 mg PO [facility] Last Admin: 08/24/17 21:39 Dose: 1 mg ASSESSMENT AND PLAN: Acute on Chronic Hypoxic Respiratory Failure Acute on Chronic Diastolic Heart Failure Acute COPD Exacerbation r/o Pneumonia HTN DM Smoker - continue lasix - monitor urine output, creatinine - daily weights, I/Os - decrease medrol to daily dosing - inhaled bronchodilators standing and PRN - O2 to keep SpO2 >90% - BiPAP as needed to assist in work of breathing - no fevers or WBC, CXR more likely consistent with CHF but cannot rule out RLL infiltrate, low threshold for antibiotics - monitor CXr - smoking cessation - DVT prophylaxis - continue ICU monitoring critical care time spent in reviewing chart, evaluating patient and formulating plan 35min Problem List - Problems (1) Acute on chronic respiratory failure with hypoxia Code(s): J96.21 - ACUTE AND CHRONIC RESPIRATORY FAILURE WITH HYPOXIA (2) Acute on chronic diastolic (congestive) heart failure Code(s): I50.33 - ACUTE ON CHRONIC DIASTOLIC (CONGESTIVE) HEART FAILURE (3) COPD exacerbation Code(s): J44.1 - CHRONIC OBSTRUCTIVE PULMONARY DISEASE W (ACUTE) EXACERBATION (4) Diabetes mellitus Code(s): E11.9 - TYPE 2 DIABETES MELLITUS WITHOUT COMPLICATIONS Qualifiers: Diabetes mellitus type: type 2 Diabetes mellitus complication status: without complication Diabetes mellitus retirement insulin use: without intermediate card tender use Qualified Code(s): E11.9 - Type 2 diabetes mellitus without complications (5) Hypertension Code(s): I10 - ESSENTIAL (PRIMARY) HYPERTENSION Qualifiers: Hypertension type: essential hypertension Qualified Code(s): I10 - Essential (primary) hypertension
--- NOTE | 2017-08-25 12:13 | PN ---
Physical Exam: SUBJECTIVE: 71 yo F with h/o COPD, HTN, aortic aneurysm, chronic hypoxic respiratory failure who presented to ICU following ED encounter for acute respiratory distress in setting of heart failure with persevered ejection fraction. Overnight patient placed on BIPAP for increased respiratory effort. Up this AM on 5 L NC for breakfast with O2 sat high 80s to 90s. Patient will resume venti mask following breakfast. She endorses worsening wheezing and cough with sputum production. Denies fevers/chills, chest pain, constipation/diarrhea, dysuria. OBJECTIVE: Vital Signs Period Temp Pulse Resp BP Sys/Cox Pulse Ox Last 24 Hr 98.0 F-98.9 F 81-99 19-28 85-129/51-70 90-93 GENERAL: The patient is awake, alert, and fully oriented, in no acute distress. HEAD: Normal with no signs of trauma. EYES: PERRL, extraocular movements intact, sclera anicteric, conjunctiva clear. No ptosis. ENT: Absent evidence of nasal flaring. Ears normal, nares patent, oropharynx clear without exudates, moist mucous membranes. NECK: Trachea midline, full range of motion, supple. LUNGS: Patient with diffuse rales and rhonci through all lung louie with predominance in lung bases. HEART: Regular rate and rhythm, S1, S2 without murmur, rub or gallop. ABDOMEN: Soft, nontender, nondistended, normoactive bowel sounds, no guarding, no rebound, no hepatosplenomegaly, no masses. EXTREMITIES: 2+ pulses, warm, well-perfused, no edema. PSYCH: Normal mood, normal affect. SKIN: Warm, dry, normal turgor, no rashes or lesions noted Laboratory Results - last 24 hr 08/24/17 08/24/17 08/24/17 06:07 11:05 17:34 WBC RBC Hgb Hct MCV MCH MCHC RDW Plt Count MPV Neutrophils % Lymphocytes % Monocytes % Eosinophils % Basophils % Sodium Potassium Chloride Carbon Dioxide Anion Gap BUN Creatinine Creat Clearance w eGFR POC Glucometer [phone] [phone] Random Glucose Calcium Phosphorus Magnesium Total Bilirubin AST ALT Alkaline Phosphatase Total Protein Albumin 08/24/17 08/25/17 08/25/17 21:37 05:10 05:10 WBC 7.3 D RBC 4.13 Hgb 13.3 Hct 41.7 MCV 101.0 H MCH 32.3 MCHC 32.0 RDW 17.2 H Plt Count 266 MPV 8.4 Neutrophils % 94.4 H Lymphocytes % 3.3 L D Monocytes % 2.1 L Eosinophils % 0.0 Basophils % 0.2 Sodium 142 Potassium 4.3 Chloride 98 Carbon Dioxide 35 H Anion Gap 9 BUN 38 H D Creatinine 1.4 H Creat Clearance w eGFR 36.76 POC Glucometer [phone] Random Glucose 155 H Calcium 10.5 H Phosphorus 4.2 Magnesium 2.4 Total Bilirubin 0.3 D AST 5 L ALT 13 Alkaline Phosphatase 57 Total Protein 6.1 L Albumin 3.1 L Active Medications Generic Name Dose Route Start Last Admin Trade Name Freq PRN Reason Stop Dose Admin Acetaminophen 650 mg 08/23/17 18:26 08/24/17 14:17 Tylenol - PO 650 mg Q8H PRN Administration PAIN Albuterol Sulfate 1 amp 08/23/17 15:21 Ventolin 0.083% Nebulizer Soln - NEB Q4H PRN SHORT OF BREATH/WHEEZING Albuterol/Ipratropium 1 amp 08/23/17 18:00 08/25/17 11:20 Duoneb - NEB 1 amp QIDR [facility] Administration Amlodipine Besylate 10 mg 08/23/17 22:00 08/24/17 21:39 Norvasc - PO 10 mg HS [facility] Administration Aspirin 81 mg 08/24/17 10:00 08/25/17 09:10 Ecotrin - PO 81 mg DAILY [facility] Administration Chlorhexidine Gluconate 1 applic 08/23/17 22:00 08/24/17 21:39 Hibiclens For Decolonization - TP 1 applic HS [facility] Administration Furosemide 40 mg 08/24/17 10:00 08/25/17 11:43 Lasix Injection - IVPUSH 40 mg DAILY [facility] Administration Gabapentin 300 mg 08/23/17 22:00 08/24/17 21:39 Neurontin - PO 300 mg HS [facility] Administration Glipizide 5 mg 08/24/17 07:00 08/25/17 06:50 Glucotrol - PO 5 mg ACBK [facility] Administration HCTZ/Losartan Potassium 1 tab 08/24/17 10:00 08/24/17 11:00 Hyzaar - PO 1 tab DAILY [facility] Administration Insulin Aspart 1 vial 08/23/17 22:00 08/25/17 11:54 Novolog Vial Sliding Scale - SQ 4 units ACHS [facility] Administration Protocol Lorazepam 1 mg 08/24/17 22:20 08/24/17 23:50 Ativan Injection - IVPUSH 1 mg BID PRN Administration ANXIETY Melatonin 10 mg 08/23/17 22:00 08/24/17 21:39 Melatonin PO 10 mg HS [facility] Administration Methylprednisolone Sodium Succinate 40 mg 08/26/17 10:00 Solu-Medrol - IVPB DAILY [facility] Metoprolol Succinate 100 mg 08/24/17 10:00 08/25/17 09:09 Toprol Xl - PO 100 mg DAILY [facility] Administration Multivitamins/Minerals/Vitamin C 1 tab 08/24/17 10:00 08/25/17 09:10 Tab-A-Vit - PO 1 tab DAILY [facility] Administration Mupirocin 1 applic 08/23/17 22:00 08/25/17 11:00 Bactroban Ointment (For Decolonization) - NS 08/28/17 21:59 1 appful BID [facility] Administration Ranolazine 500 mg 08/23/17 22:00 08/25/17 09:10 Ranexa - PO 500 mg BID [facility] Administration Risperidone 1 mg 08/23/17 22:00 08/24/17 21:39 Risperdal - PO 1 mg HS [facility] Administration ASSESSMENT/PLAN: 71 yo F with h/o COPD, HTN, aortic aneurysm, chronic hypoxic respiratory failure who presented to ICU following ED encounter for acute respiratory distress in setting of heart failure with persevered ejection fraction. Cardiac: Decrease Furosemide gtt to 40 mg PO QD Furosemide. Continue ASA 81 mg, Metoprolol 100 QD, Amlodipine 10mg QD, and Ranexa 500 mg BID daily weight and Is/Os Resp: CHF vs. PNA ( less likely ) CXR ( 08/25 ) with worsening pleural effusion and RLL infiltrate. Continue Bipap PRN Continue Pulm hygiene and incentive spirometry Cont Duonebs and decrease salumedrol to QD. Keep O2 over 90% Renal: Continue to monitor Cr/BUN FEN: No IVF, Lytes PRN, Diabetic diet PPx: Lovenox, PPI Dispo: Continue ICU monitoring Visit type - Emergency Visit Emergency Visit: Yes ED Registration Date: 08/23/17 Care time: The patient presented to the Emergency Department on the above date and was hospitalized for further evaluation of their emergent condition. - New Patient This patient is new to me today: Yes Date on this admission: 08/25/17 - Critical Care Critical Care patient: Yes Total Critical Care Time (in minutes): 30 Critical Care Statement: The care of this patient involved high complexity decision making to prevent further life threatening deterioration of the patient 's condition and/or to evaluate & treat vital organ system(s) failure or risk of failure.
[2017-08-25] MEDS: ACETAMINOPHEN 325 MG TABLET (FP) PO PRN (14:49)
--- NOTE | 2017-08-25 18:08 | PN ---
Physical Exam: SUBJECTIVE: Patient seen and examined in the ICU. Daughter at the bedside. OBJECTIVE: On bipap at night, alternating with 4-5 liters of nasal cannula and venti mask Period Temp Pulse Resp BP Sys/Cox Pulse Ox Last 24 Hr 98.0 F-98.9 F 81-101 19-28 85-129/51-70 90-92 GENERAL: Awake, alert, and fully oriented, in moderate respiratory distress, refusing bipap, on 4 liters of nasal cannula HEAD: Normal with no signs of trauma. EYES: Pupils equal, round and reactive to light, extraocular movements intact, sclera anicteric, conjunctiva clear. No lid lag. EARS, NOSE, THROAT: Ears normal, nares patent, oropharynx clear without exudates. Moist mucous membranes. NECK: Normal range of motion, supple without lymphadenopathy, JVD, or masses. LUNGS: Diminished breath sounds to auscultation, scattered fine wheezes HEART: Regular rate and rhythm ABDOMEN: Soft, nontender, not distended, normoactive bowel sounds, no guarding, no rebound, no masses. No hepatomegaly or splenomegaly. MUSCULOSKELETAL: Normal range of motion at all joints. No bony deformities or tenderness. No CVA tenderness. UPPER EXTREMITIES: 2+ pulses, warm, well-perfused. No cyanosis. No clubbing. No peripheral edema. LOWER EXTREMITIES: No peripheral edema. NEUROLOGICAL: Speech limited secondary to bipap mask, calm, cooperative PSYCHIATRIC: Cooperative. Good eye contact. Appropriate mood and affect. SKIN: Warm, dry, normal turgor, no rashes or lesions noted, normal capillary refill. Laboratory Results - last 24 hr 08/24/17 08/24/17 08/24/17 06:07 11:05 17:34 WBC RBC Hgb Hct MCV MCH MCHC RDW Plt Count MPV Neutrophils % Lymphocytes % Monocytes % Eosinophils % Basophils % Sodium Potassium Chloride Carbon Dioxide Anion Gap BUN Creatinine Creat Clearance w eGFR POC Glucometer [phone] Random Glucose Calcium Phosphorus Magnesium Total Bilirubin AST ALT Alkaline Phosphatase Total Protein Albumin 08/24/17 08/25/17 08/25/17 21:37 05:10 05:10 WBC 7.3 D RBC 4.13 Hgb 13.3 Hct 41.7 MCV 101.0 H MCH 32.3 MCHC 32.0 RDW 17.2 H Plt Count 266 MPV 8.4 Neutrophils % 94.4 H Lymphocytes % 3.3 L D Monocytes % 2.1 L Eosinophils % 0.0 Basophils % 0.2 Sodium 142 Potassium 4.3 Chloride 98 Carbon Dioxide 35 H Anion Gap 9 BUN 38 H D Creatinine 1.4 H Creat Clearance w eGFR 36.76 POC Glucometer [phone] Random Glucose 155 H Calcium 10.5 H Phosphorus 4.2 Magnesium 2.4 Total Bilirubin 0.3 D AST 5 L ALT 13 Alkaline Phosphatase 57 Total Protein 6.1 L Albumin 3.1 L Active Medications Generic Name Dose Route Start Last Admin Trade Name Freq PRN Reason Stop Dose Admin Acetaminophen 650 mg 08/23/17 18:26 08/25/17 14:49 Tylenol - PO 650 mg Q8H PRN Administration PAIN Albuterol Sulfate 1 amp 08/23/17 15:21 Ventolin 0.083% Nebulizer Soln - NEB Q4H PRN SHORT OF BREATH/WHEEZING Albuterol/Ipratropium 1 amp 08/23/17 18:00 08/25/17 17:51 Duoneb - NEB 1 amp QIDR IVANIA Administration Amlodipine Besylate 10 mg 08/23/17 22:00 08/24/17 21:39 Norvasc - PO 10 mg HS IVANIA Administration Aspirin 81 mg 08/24/17 10:00 08/25/17 09:10 Ecotrin - PO 81 mg DAILY IVANIA Administration Chlorhexidine Gluconate 1 applic 08/23/17 22:00 08/24/17 21:39 Hibiclens For Decolonization - TP 1 applic HS IVANIA Administration Furosemide 40 mg 08/24/17 10:00 08/25/17 11:43 Lasix Injection - IVPUSH 40 mg DAILY IVANIA Administration Gabapentin 300 mg 08/23/17 22:00 08/24/17 21:39 Neurontin - PO 300 mg HS IVANIA Administration Glipizide 5 mg 08/24/17 07:00 08/25/17 06:50 Glucotrol - PO 5 mg ACBK IVANIA Administration HCTZ/Losartan Potassium 1 tab 08/24/17 10:00 08/25/17 12:00 Hyzaar - PO 1 tab DAILY IVANIA Administration Insulin Aspart 1 vial 08/23/17 22:00 08/25/17 16:45 Novolog Vial Sliding Scale - SQ 6 units ACHS IVANIA Administration Protocol Lorazepam 1 mg 08/24/17 22:20 08/24/17 23:50 Ativan Injection - IVPUSH 1 mg BID PRN Administration ANXIETY Melatonin 10 mg 08/23/17 22:00 08/24/17 21:39 Melatonin PO 10 mg HS IVANIA Administration Methylprednisolone Sodium Succinate 40 mg 08/26/17 10:00 Solu-Medrol - IVPB DAILY IVANIA Metoprolol Succinate 100 mg 08/24/17 10:00 08/25/17 09:09 Toprol Xl - PO 100 mg DAILY IVANIA Administration Multivitamins/Minerals/Vitamin C 1 tab 08/24/17 10:00 08/25/17 09:10 Tab-A-Vit - PO 1 tab DAILY IVANIA Administration Mupirocin 1 applic 08/23/17 22:00 08/25/17 11:00 Bactroban Ointment (For Decolonization) - NS 08/28/17 21:59 1 appful BID IVANIA Administration Nicotine 14 mg 08/25/17 16:15 Nicoderm Patch - TD DAILY IVANIA Ranolazine 500 mg 08/23/17 22:00 08/25/17 09:10 Ranexa - PO 500 mg BID IVANIA Administration Risperidone 1 mg 08/23/17 22:00 08/24/17 21:39 Risperdal - PO 1 mg HS IVANIA Administration ASSESSMENT/PLAN: Patient is a 71 year old female with a significant past medical history of COPD (home oxygen dependent on 2 liters), abdominal mass in the distal stomach, recently found to have elevated CEA on last admission, hypertension, HLD, ascending aortic aneurysm, chronic hypoxic respiratory failure, diabetes mellitus, TIAs, depression, rheumatoid arthritis and dementia. . She was brought into the ED (sent by PCP) for worsening shortness of breath and wheezing for approximately 2 days. Patient reports a productive cough with worsening shortness of breath. She reports a productive cough with yellow sputum and reports subjective fever and chills. She denies any sick contact or recent travel. She denies any leg pain or tenderness. She has been having worsening shortness of breath when laying in bed and needs to be propped up on a number of pillows. On arrival to the ED she was noted to be 62% on room air. She was placed on bipap and was seen by a bioinformatics specialist. Patient denies any recent travel. She denies fever, chills, nausea, vomiting or diarrhea. Pulmonary: Shortness of breath - acute on chronic COPD excacerbation vs. CHF exacerbation A/P: Patient is home oxygen dependent Chest xray: heart size enlarged with increased interstitial markings consistent with pulmonary vascular congestion. Hazing at lung base suspicious for small pleural effusion. On bipap, Duonebs, Solumedrol 40mg Levaquin 500mg iv daily Sputum culture Lasix 40mg IV daily Pulmonary following Maintain oxygen saturations above 90% Endocrine: NIDM II A/P: Hold metformin , start on Novolog Monitor blood sugars Cardiology: Rule out ACS as cause of acute shortness of breath A/P: Troponins negative x 2 Monitor on cardiac monitoring Cardiology following Hypertension: A/P: On Metoprolol, Hyzaar, Ranexa, Norvasc Also on ASA Patient reports compliance with her home meds Monitor BP Psyche: Depression/Dementia A/P: Continue Risperdal 1mg PO Endocrine: Rheumatoid Arthritis A/P: On neurontin 300mg DVT: Lovenox 40mg daily GI: Protonix F.E.N. Fluids: PO as tolerated, congestion on xray, hold IVF Electrolytes: monitor Nutrition: as tolerated, diabetic diet Disposition: Full code. Visit type - Emergency Visit Emergency Visit: Yes ED Registration Date: 08/23/17 Care time: The patient presented to the Emergency Department on the above date and was hospitalized for further evaluation of their emergent condition. - New Patient This patient is new to me today: No - Critical Care Critical Care patient: Yes Total Critical Care Time (in minutes): 60 Critical Care Statement: The care of this patient involved high complexity decision making to prevent further life threatening deterioration of the patient 's condition and/or to evaluate & treat vital organ system(s) failure or risk of failure. - Discharge Referral Referred to [facility] Med P.C.: No
[2017-08-25] MEDS: NICOTINE 14 MG/24 HOURS TOPICAL PATCH TD SCH (18:51)
[2017-08-25] MEDS: ENOXAPARIN NA (PORCINE) 40 MG/0.4 ML DISP.SYRIN SQ SCH (18:52)
[2017-08-25] MEDS: LORazepam 2 MG/ML SDV VIAL IVPUSH PRN (20:45)
[2017-08-25] MEDS: GABAPENTIN 300 MG CAPSULE (FP) PO SCH (21:18)
[2017-08-25] MEDS: MELATONIN 5 MG TABLETS PO SCH (21:18)
[2017-08-25] MEDS: amLODIPine BESYLATE 10 MG TABLET (FP) PO SCH (21:18)
[2017-08-25] MEDS: risperiDONE 1 MG TABLET (FP) PO SCH (21:18)
[2017-08-25] MEDS: CHLORHEXIDINE GLUCONATE 4% CLEANSER FOR DECOLONIZATION TP SCH (21:19)
[2017-08-26] MEDS ORDERED: PT OWN MED DRAWER 7, Y5N ONE ×2 (05:59→20:58)
[2017-08-26] MEDS: INSULIN SLIDING SCALE (NOVOLOG) 1 VIAL SQ SCH ×4 (06:25→21:15)
[2017-08-26] MEDS: glipiZIDE 5 MG TABLET (FP) PO SCH (06:27)
[2017-08-26] MEDS: ALBUTEROL SO4 2.5/IPRATROPIUM 0.5 INH SOL 3 ML VIAL.NEB. NEB SCH ×4 (06:50→23:29)
[2017-08-26] MEDS: RANOLAZINE E.R. 500 MG TABLET (FP) PO SCH ×2 (09:39→21:10)
[2017-08-26] MEDS: MULTIVITAMINS (DAILY MVI) TABLET (FP) PO SCH (09:39)
[2017-08-26] MEDS: NICOTINE 14 MG/24 HOURS TOPICAL PATCH TD SCH (09:40)
[2017-08-26] MEDS: ENOXAPARIN NA (PORCINE) 40 MG/0.4 ML DISP.SYRIN SQ SCH (09:41)
[2017-08-26] MEDS: ASPIRIN COATED 81 MG TABLET.EC PO SCH (09:42)
[2017-08-26] MEDS: FUROSEMIDE 40 MG/4 ML INJECTABLE VIAL IVPUSH SCH (09:42)
[2017-08-26] MEDS: LOSARTAN 50MG/HCTZ 12.5MG 1 TAB (FP) PO SCH (09:43)
[2017-08-26] MEDS: METOPROLOL SUCCINATE 100 MG TAB.SR.24H (FP) PO SCH (09:44)
[2017-08-26] MEDS ORDERED: LEVOFLOXACIN 250 MG IVPB 50 ML IVPB SCH (10:00)
[2017-08-26] MEDS ORDERED: methylPREDNISolone NA SUCC 40 MG/1 ML VIAL IVPB SCH (10:00)
[2017-08-26] MEDS: MUPIROCIN 2% TOPICAL OINTMENT FOR DECOLONIZATION NS SCH (10:17)
--- NOTE | 2017-08-26 12:19 | PN ---
Physical Exam: SUBJECTIVE: Patient seen and examined. She is oob to chair, she says she feels better today. Granddaughter at bedside. OBJECTIVE: Vital Signs Period Temp Pulse Resp BP Sys/Cox Pulse Ox Last 24 Hr 97.5 F-98.6 F 81-101 18-24 90-124/52-77 92-93 PE Neuro: alert, awake, cn 2-12intact Pulm: LLL crackles, diminished, R CV: s1 s2 rrr no mrg Abd: epigastric area of hardening, soft, non tender, nd Ext: warm, no le edema Active Medications Generic Name Dose Route Start Last Admin Trade Name Freq PRN Reason Stop Dose Admin Acetaminophen 650 mg 08/23/17 18:26 08/25/17 14:49 Tylenol - PO 650 mg Q8H PRN Administration PAIN Albuterol Sulfate 1 amp 08/23/17 15:21 Ventolin 0.083% Nebulizer Soln - NEB Q4H PRN SHORT OF BREATH/WHEEZING Albuterol/Ipratropium 1 amp 08/23/17 18:00 08/26/17 11:05 Duoneb - NEB 1 amp QIDR IVANIA Administration Amlodipine Besylate 10 mg 08/23/17 22:00 08/25/17 21:18 Norvasc - PO 10 mg HS IVANIA Administration Aspirin 81 mg 08/24/17 10:00 08/26/17 09:42 Ecotrin - PO 81 mg DAILY IVANIA Administration Chlorhexidine Gluconate 1 applic 08/23/17 22:00 08/25/17 21:19 Hibiclens For Decolonization - TP 1 applic HS IVANIA Administration Enoxaparin Sodium 40 mg 08/25/17 18:15 08/26/17 09:41 Lovenox - SQ 40 mg DAILY IVANIA Administration Furosemide 40 mg 08/24/17 10:00 08/26/17 09:42 Lasix Injection - IVPUSH 40 mg DAILY IVANIA Administration Gabapentin 300 mg 08/23/17 22:00 08/25/17 21:18 Neurontin - PO 300 mg HS IVANIA Administration Glipizide 5 mg 08/24/17 07:00 08/26/17 06:27 Glucotrol - PO 5 mg ACBK IVANIA Administration HCTZ/Losartan Potassium 1 tab 08/24/17 10:00 08/26/17 09:43 Hyzaar - PO 1 tab DAILY IVANIA Administration Levofloxacin 50 mls @ 50 mls/hr 08/26/17 10:00 08/26/17 09:41 Levaquin 250 Mg Premixed Ivpb - IVPB 50 mls/hr DAILY IVANIA Administration Insulin Aspart 1 vial 08/23/17 22:00 08/26/17 12:00 Novolog Vial Sliding Scale - SQ 2 units ACHS IVANIA Administration Protocol Lorazepam 1 mg 08/24/17 22:20 08/25/17 20:45 Ativan Injection - IVPUSH 1 mg BID PRN Administration ANXIETY Melatonin 10 mg 08/23/17 22:00 08/25/17 21:18 Melatonin PO 10 mg HS IVANIA Administration Methylprednisolone Sodium Succinate 40 mg 08/26/17 10:00 08/26/17 09:39 Solu-Medrol - IVPB 40 mg DAILY IVANIA Administration Metoprolol Succinate 100 mg 08/24/17 10:00 08/26/17 09:44 Toprol Xl - PO 100 mg DAILY IVANIA Administration Multivitamins/Minerals/Vitamin C 1 tab 08/24/17 10:00 08/26/17 09:39 Tab-A-Vit - PO 1 tab DAILY IVANIA Administration Mupirocin 1 applic 08/23/17 22:00 08/26/17 10:17 Bactroban Ointment (For Decolonization) - NS 08/28/17 21:59 1 applic BID IVANIA Administration Nicotine 14 mg 08/25/17 16:15 08/26/17 09:40 Nicoderm Patch - TD 14 mg DAILY IVANIA Administration Ranolazine 500 mg 08/23/17 22:00 08/26/17 09:39 Ranexa - PO 500 mg BID IVANIA Administration Risperidone 1 mg 08/23/17 22:00 08/25/17 21:18 Risperdal - PO 1 mg HS IVANIA Administration Imaging: - ECHO:06/14/17: Normal LV size and fxn, abnl LV compliance, mild ao dilatation, no sig valve abnl Assessment: 71 year old female with pmhx of COPD (home oxygen dependent on 2 liters), abdominal mass in the distal stomach, recently found to have elevated CEA on last admission s/p EGD 08/26, HTN, HLD, ascending aortic aneurysm, chronic hypoxic respiratory failure, diabetes mellitus, TIAs, depression, rheumatoid arthritis and dementia admitted with acute respiratory failure. Plan: 1. Acute on Chronic Hypoxic Respiratory Failure - Refused bipap overnight, spo2 stable - Tolerating nasal cannula - Stop medrol (4 days) - Transition to po Prednisone 40mg daily 2. ?PNA - Empiric Levaquin day 03/02 3. Acute on chronic diastolic HF - Continue lasix 40mg IV daily 4. HTN - BP stable - Metoprolol xl 100mg day - Hold hyzaar (losartan/HCTZ) for placido - Norvasc 10mg day 5. CAD/angina pectoris - ASA - Ranexa 6. Depression/Dementia - Risperdal 1mg PO 7. Rheumatoid Arthritis - Neurontin 300mg 8. PLACIDO - Monitor mild increase in cr - Stop lovenox - Start heparin - Hold hyzaar 9. DM II - Requiring little coverage - ISS, BGM ACHS - Hold PO anti diabetics 10. Hypercalcemia - Corrected ca 11.2 - Holding fluids - Possible due to abdominal malignancy, elevated CEA, pt initial bx inconclusive , will need outpt GI follow up 11. DVT TID - heparin sq Visit type - Emergency Visit Emergency Visit: Yes ED Registration Date: 08/23/17 Care time: The patient presented to the Emergency Department on the above date and was hospitalized for further evaluation of their emergent condition. - New Patient This patient is new to me today: Yes Date on this admission: 08/27/17 - Critical Care Critical Care patient: No
--- NOTE | 2017-08-26 12:29 | PN ---
Teaching Attending Note Name of Resident: Keyanna Alvarenga ATTENDING PHYSICIAN STATEMENT I saw and evaluated the patient. I reviewed the resident's note and discussed the case with the resident. I agree with the resident's findings and plan as documented. SUBJECTIVE: Patient seen and examined in the ICU. Breathing continues to improve. Still with some cough and wheezing. No fevers or chills. OBJECTIVE: Intake & Output 08/23/17 08/24/17 08/25/17 08/26/17 23:59 23:59 23:59 23:59 Intake Total 940 1135 240 Output Total 600 1550 2200 Balance -600 -610 -1065 240 Weight 177 lb 4.026 oz 179 lb 3.773 oz 181 lb 1.6 oz 178 lb 3.2 oz Last Vital Signs Temp Pulse Resp BP Pulse Ox 98.0 F 85 23 106/61 93 L 08/26/17 06:00 08/26/17 09:57 08/26/17 08:18 08/26/17 08:00 08/26/17 09:57 Active Medications Acetaminophen (Tylenol -) 650 mg PO Q8H PRN PRN Reason: PAIN Last Admin: 08/25/17 14:49 Dose: 650 mg Albuterol Sulfate (Ventolin 0.083% Nebulizer Soln -) 1 amp NEB Q4H PRN PRN Reason: SHORT OF BREATH/WHEEZING Albuterol/Ipratropium (Duoneb -) 1 amp NEB QIDR IVANIA Last Admin: 08/26/17 11:05 Dose: 1 amp Amlodipine Besylate (Norvasc -) 10 mg PO HS [facility] Last Admin: 08/25/17 21:18 Dose: 10 mg Aspirin (Ecotrin -) 81 mg PO DAILY [facility] Last Admin: 08/26/17 09:42 Dose: 81 mg Chlorhexidine Gluconate (Hibiclens For Decolonization -) 1 applic TP HS [facility] Last Admin: 08/25/17 21:19 Dose: 1 applic Enoxaparin Sodium (Lovenox -) 40 mg SQ DAILY [facility] Last Admin: 08/26/17 09:41 Dose: 40 mg Furosemide (Lasix Injection -) 40 mg IVPUSH DAILY [facility] Last Admin: 08/26/17 09:42 Dose: 40 mg Gabapentin (Neurontin -) 300 mg PO HS [facility] Last Admin: 08/25/17 21:18 Dose: 300 mg Glipizide (Glucotrol -) 5 mg PO ACBK [facility] Last Admin: 08/26/17 06:27 Dose: 5 mg HCTZ/Losartan Potassium (Hyzaar -) 1 tab PO DAILY [facility] Last Admin: 08/26/17 09:43 Dose: 1 tab Levofloxacin (Levaquin 250 Mg Premixed Ivpb -) 50 mls @ 50 mls/hr IVPB DAILY [facility] Last Admin: 08/26/17 09:41 Dose: 50 mls/hr Insulin Aspart (Novolog Vial Sliding Scale -) 1 vial SQ ACHS IVANIA PRN Reason: Protocol Last Admin: 08/26/17 12:00 Dose: 2 units Lorazepam (Ativan Injection -) 1 mg IVPUSH BID PRN PRN Reason: ANXIETY Last Admin: 08/25/17 20:45 Dose: 1 mg Melatonin (Melatonin) 10 mg PO HS [facility] Last Admin: 08/25/17 21:18 Dose: 10 mg Methylprednisolone Sodium Succinate (Solu-Medrol -) 40 mg IVPB DAILY [facility] Last Admin: 08/26/17 09:39 Dose: 40 mg Metoprolol Succinate (Toprol Xl -) 100 mg PO DAILY [facility] Last Admin: 08/26/17 09:44 Dose: 100 mg Multivitamins/Minerals/Vitamin C (Tab-A-Vit -) 1 tab PO DAILY [facility] Last Admin: 08/26/17 09:39 Dose: 1 tab Mupirocin (Bactroban Ointment (For Decolonization) -) 1 applic NS BID [facility] Stop: 08/28/17 21:59 Last Admin: 08/26/17 10:17 Dose: 1 applic Nicotine (Nicoderm Patch -) 14 mg TD DAILY [facility] Last Admin: 08/26/17 09:40 Dose: 14 mg Ranolazine (Ranexa -) 500 mg PO BID [facility] Last Admin: 08/26/17 09:39 Dose: 500 mg Risperidone (Risperdal -) 1 mg PO HS [facility] Last Admin: 08/25/17 21:18 Dose: 1 mg Gen: Awake and alert, less tachypneic Heart: RRR Lung: scattered rhonchi, Mild expiratory wheeze Abd: soft, nontender Ext: no edema Problem List - Problems (1) Acute on chronic respiratory failure with hypoxia Code(s): J96.21 - ACUTE AND CHRONIC RESPIRATORY FAILURE WITH HYPOXIA (2) Acute on chronic diastolic (congestive) heart failure Code(s): I50.33 - ACUTE ON CHRONIC DIASTOLIC (CONGESTIVE) HEART FAILURE (3) COPD exacerbation Code(s): J44.1 - CHRONIC OBSTRUCTIVE PULMONARY DISEASE W (ACUTE) EXACERBATION (4) Diabetes mellitus Code(s): E11.9 - TYPE 2 DIABETES MELLITUS WITHOUT COMPLICATIONS Qualifiers: Diabetes mellitus type: type 2 Diabetes mellitus complication status: without complication Diabetes mellitus operations expert insulin use: without operations expert use Qualified Code(s): E11.9 - Type 2 diabetes mellitus without complications (5) Hypertension Code(s): I10 - ESSENTIAL (PRIMARY) HYPERTENSION Qualifiers: Hypertension type: essential hypertension Qualified Code(s): I10 - Essential (primary) hypertension ASSESSMENT AND PLAN: Acute on Chronic Hypoxic Respiratory Failure Acute on Chronic Diastolic Heart Failure Acute COPD Exacerbation r/o Pneumonia HTN DM Smoker - Lasix - monitor urine output, creatinine - daily weights, I/Os - Can change to Prednisone - Inhaled bronchodilators standing and PRN - O2 to keep SpO2 >90% - BiPAP as needed to assist in work of breathing - Smoking cessation - DVT prophylaxis - Telemetry monitoring Dr Ponce critical care time spent in reviewing chart, evaluating patient and formulating plan 35 minutes
--- NOTE | 2017-08-26 14:53 | PN ---
Progress Note, Physician History of Present Illness: Dyspnea, cough, subjective fevers resolved, weaned to NC. - Current Medication List Current Medications: Active Medications Acetaminophen (Tylenol -) 650 mg PO Q8H PRN PRN Reason: PAIN Last Admin: 08/25/17 14:49 Dose: 650 mg Albuterol Sulfate (Ventolin 0.083% Nebulizer Soln -) 1 amp NEB Q4H PRN PRN Reason: SHORT OF BREATH/WHEEZING Albuterol/Ipratropium (Duoneb -) 1 amp NEB QIDR [facility] Last Admin: 08/26/17 11:05 Dose: 1 amp Amlodipine Besylate (Norvasc -) 10 mg PO HS [facility] Last Admin: 08/25/17 21:18 Dose: 10 mg Aspirin (Ecotrin -) 81 mg PO DAILY [facility] Last Admin: 08/26/17 09:42 Dose: 81 mg Chlorhexidine Gluconate (Hibiclens For Decolonization -) 1 applic TP [facility] Last Admin: 08/25/17 21:19 Dose: 1 applic Furosemide (Lasix Injection -) 40 mg IVPUSH DAILY [facility] Last Admin: 08/26/17 09:42 Dose: 40 mg Gabapentin (Neurontin -) 300 mg PO HS [facility] Last Admin: 08/25/17 21:18 Dose: 300 mg Heparin Sodium (Porcine) (Heparin -) 5,000 unit SQ TID IVANIA Levofloxacin (Levaquin 250 Mg Premixed Ivpb -) 50 mls @ 50 mls/hr IVPB DAILY [facility] Last Admin: 08/26/17 09:41 Dose: 50 mls/hr Insulin Aspart (Novolog Vial Sliding Scale -) 1 vial SQ ACHS [facility] PRN Reason: Protocol Last Admin: 08/26/17 12:00 Dose: 2 units Lorazepam (Ativan Injection -) 1 mg IVPUSH BID PRN PRN Reason: ANXIETY Last Admin: 08/25/17 20:45 Dose: 1 mg Melatonin (Melatonin) 10 mg PO HS [facility] Last Admin: 08/25/17 21:18 Dose: 10 mg Metoprolol Succinate (Toprol Xl -) 100 mg PO DAILY [facility] Last Admin: 08/26/17 09:44 Dose: 100 mg Multivitamins/Minerals/Vitamin C (Tab-A-Vit -) 1 tab PO DAILY [facility] Last Admin: 08/26/17 09:39 Dose: 1 tab Mupirocin (Bactroban Ointment (For Decolonization) -) 1 applic NS BID [facility] Stop: 08/28/17 21:59 Last Admin: 08/26/17 10:17 Dose: 1 applic Nicotine (Nicoderm Patch -) 14 mg TD DAILY [facility] Last Admin: 08/26/17 09:40 Dose: 14 mg Prednisone (Deltasone -) 40 mg PO DAILY [facility] Ranolazine (Ranexa -) 500 mg PO BID [facility] Last Admin: 08/26/17 09:39 Dose: 500 mg Risperidone (Risperdal -) 1 mg PO HS [facility] Last Admin: 08/25/17 21:18 Dose: 1 mg - Objective Vital Signs: Vital Signs Temperature 97.8 F 08/26/17 10:00 Pulse Rate 86 08/26/17 10:00 Respiratory Rate 22 08/26/17 10:00 Blood Pressure 118/71 08/26/17 10:00 O2 Sat by Pulse Oximetry (%) 93 L 08/26/17 09:57 Constitutional: Yes: No Distress, Calm Neck: Yes: Supple Cardiovascular: Yes: Regular Rate and Rhythm Respiratory: Yes: Regular, Diminished, On Nasal O2 Gastrointestinal: Yes: Normal Bowel Sounds, Soft, Abdomen, Obese Edema: No Labs: CBC, BMP 08/25/17 05:10 08/25/17 05:10 INR, PTT INR 1.06 (0.82-1.09) 08/23/17 14:34 Problem List - Problems (1) Acute on chronic diastolic (congestive) heart failure Code(s): I50.33 - ACUTE ON CHRONIC DIASTOLIC (CONGESTIVE) HEART FAILURE (2) Acute on chronic respiratory failure with hypoxia Code(s): J96.21 - ACUTE AND CHRONIC RESPIRATORY FAILURE WITH HYPOXIA (3) Acute kidney injury Code(s): N17.9 - ACUTE KIDNEY FAILURE, UNSPECIFIED (4) COPD (chronic obstructive pulmonary disease) Code(s): J44.9 - CHRONIC OBSTRUCTIVE PULMONARY DISEASE, UNSPECIFIED (5) Diabetes mellitus Code(s): E11.9 - TYPE 2 DIABETES MELLITUS WITHOUT COMPLICATIONS Qualifiers: Diabetes mellitus type: type 2 Diabetes mellitus complication status: without complication Diabetes mellitus mcc insulin use: without mcc use Qualified Code(s): E11.9 - Type 2 diabetes mellitus without complications (6) Hypertension Code(s): I10 - ESSENTIAL (PRIMARY) HYPERTENSION Qualifiers: Hypertension type: essential hypertension Qualified Code(s): I10 - Essential (primary) hypertension (7) Right bundle branch block (RBBB) Code(s): I45.10 - UNSPECIFIED RIGHT BUNDLE-BRANCH BLOCK Assessment/Plan 06/14/2017 Echo: Normal LV size and fxn, abnl LV compliance, mild ao dilatation, no sig valve abnl 1. Acute on chronic hypoxic respiratory failure 2. Acute on Chronic Diastolic Heart Failure 3. Acute COPD Exacerbation 4. Coronary artery disease with obstructive RCA and RPDA, angina pectoris 5. Hypertension/hypertensive cardiovascular disease 6. Type 2 diabetes mellitus 7. Ascending thoracic aortic aneurysm 8. History of rheumatoid arthritis 9. Right bundle branch block 10. Previous history of GI bleed 11. Neutropenia 12 PLACIDO 13. Tobacco abuse PLAN: 1. Decrease diuresis with monitor diuretic response, renal fxn and electrolytes 2. Continue bronchodilator, oral steroid taper, empiric abx course, O2 as needed to keep SpO2 >90%, BiPAP to assist in work of breathing 3. Continue ASA 81 qd, Metoprolol XL 100 qd, Hyzaar 1 qd, Amlodipine 10 qd and Ranexa 500 bid as tolerated 4. Continue DVT and GI prophylaxis
[2017-08-26] MEDS ORDERED: ALBUTEROL SO4 0.083% IH SOL 2.5 MG/3 ML VIAL.NEB. NEB PRN (15:07)
[2017-08-26] MEDS ORDERED: LORazepam 2 MG/ML SDV VIAL IVPUSH PRN (15:07)
[2017-08-26] MEDS: HEPARIN NA (PORCINE) 5,000 UNITS/ML 1ML VIAL SQ SCH ×2 (16:00→21:10)
--- NOTE | 2017-08-26 16:08 | PN ---
Physical Exam: SUBJECTIVE: Patient seen and examined by me at bedside. No overnight events noted. Patient continues to depend on ventimask but is saturating well in high 90's. Otherwise, patient denies fever, chills, nausea, vomiting, abdominal pain , chest pain, headache. OBJECTIVE: Vital Signs Period Temp Pulse Resp BP Sys/Cox Pulse Ox Last 24 Hr 97.5 F-98.6 F 81-99 18-24 90-122/52-78 92-93 GENERAL: The patient is awake, alert, confused and in no acute distress. LUNGS: bilateral wheezing throughout lung bases currently on 4L of 02, no crackles, no accessory muscle use. HEART: Regular rate and rhythm, S1, S2 without murmur, rub or gallop. ABDOMEN: Soft, nontender, nondistended, normoactive bowel sounds, no guarding, no rebound EXTREMITIES: No peripheral edema. NEUROLOGICAL: Normal speech. PSYCH: Confused Active Medications Generic Name Dose Route Start Last Admin Trade Name Freq PRN Reason Stop Dose Admin Acetaminophen 650 mg 08/26/17 15:07 Tylenol - PO Q8H PRN PAIN Albuterol Sulfate 1 amp 08/26/17 15:07 Ventolin 0.083% Nebulizer Soln - NEB Q4H PRN SHORT OF BREATH/WHEEZING Albuterol/Ipratropium 1 amp 08/26/17 18:00 Duoneb - NEB QIDR IVANIA Amlodipine Besylate 10 mg 08/26/17 22:00 Norvasc - PO HS IVANIA Aspirin 81 mg 08/27/17 10:00 Ecotrin - PO DAILY IVANIA Chlorhexidine Gluconate 1 applic 08/26/17 22:00 Hibiclens For Decolonization - TP HS IVANIA Furosemide 20 mg 08/27/17 10:00 Lasix - PO DAILY IVANIA Gabapentin 300 mg 08/26/17 22:00 Neurontin - PO HS IVANIA Heparin Sodium (Porcine) 5,000 unit 08/26/17 15:00 Heparin - SQ TID IVANIA Levofloxacin 50 mls @ 50 mls/hr 08/27/17 10:00 Levaquin 250 Mg Premixed Ivpb - IVPB DAILY IVANIA Insulin Aspart 1 vial 08/26/17 16:30 Novolog Vial Sliding Scale - SQ ACHS IVANIA Protocol Lorazepam 1 mg 08/26/17 15:07 Ativan Injection - IVPUSH BID PRN ANXIETY Melatonin 10 mg 08/26/17 22:00 Melatonin PO HS [facility] Metoprolol Succinate 100 mg 08/27/17 10:00 Toprol Xl - PO DAILY [facility] Multivitamins/Minerals/Vitamin C 1 tab 08/27/17 10:00 Tab-A-Vit - PO DAILY [facility] Mupirocin 1 applic 08/26/17 22:00 Bactroban Ointment (For Decolonization) - NS 08/28/17 21:59 BID [facility] Nicotine 14 mg 08/27/17 10:00 Nicoderm Patch - TD DAILY [facility] Prednisone 40 mg 08/27/17 10:00 Deltasone - PO DAILY [facility] Ranolazine 500 mg 08/26/17 22:00 Ranexa - PO BID [facility] Risperidone 1 mg 08/26/17 22:00 Risperdal - PO HS [facility] ASSESSMENT/PLAN: 71 yo F with h/o COPD, HTN, aortic aneurysm, chronic hypoxic respiratory failure who presented for shortness of breath and admitted to ICU for further monitoring and management. Pulmonology #Acute on chronic hypoxic respiratory failure -Likely secondary to CHF exacerbation vs. COPD exacerbation -Tolerating 4L NC and saturating in mid 90's -Methylprednisone stopped and now swtiched to Prednisone 40mg daily -Continue Albuterol -Incentive Spirometer Cardiology #Acute on Chronic Diastolic Heart Failure -Continue Lasix 40mg IV Daily -Monitor I&O's -Daily weights #HTN -BP controlled -Continue Metoprolol 100mg daily -Continue Norvasc 10mg daily -Hold Hyzaar due to PLACIDO #CAD -Continue ASA 81 mg daily -Continue Ranexa 500mg BID Nephrology #Acute Kidney Injury secondary to hypovolemia -Continue to hold nephrotoxic medications -Lovenox stopped and switched to heparin -Continue to monitor BMP Neurology/Psychology -Continue Risperdal 1mg PO daily Rheumatology #Rheumatoid Arthritis -Controlled and currently on Neurontin 300mg daily Endocrinology #NIDDMII -BGM -ISS F/E/N -On no fluids -electrolytes wnl -Diabetic diet Prophylaxis -Heparin SQ for DVT -No GI needed Disposition -Deconditioning: PT -Patient's daughter is health proxy and spoke to the primary team that she would like her mother to be DNR/DNI. -Transfer to telemetry Visit type - Emergency Visit Emergency Visit: Yes ED Registration Date: 09/26/17 Care time: The patient presented to the Emergency Department on the above date and was hospitalized for further evaluation of their emergent condition. - New Patient This patient is new to me today: Yes Date on this admission: 08/26/17 - Critical Care Critical Care patient: Yes Total Critical Care Time (in minutes): 45 Critical Care Statement: The care of this patient involved high complexity decision making to prevent further life threatening deterioration of the patient 's condition and/or to evaluate & treat vital organ system(s) failure or risk of failure.
[2017-08-26] MEDS ORDERED: HEMOQUE TEST 1 EACH EACH ONE (18:25)
[2017-08-26] MEDS: MELATONIN 5 MG TABLETS PO SCH (21:09)
[2017-08-26] MEDS: risperiDONE 1 MG TABLET (FP) PO SCH (21:10)
[2017-08-26] MEDS: GABAPENTIN 300 MG CAPSULE (FP) PO SCH (21:10)
[2017-08-26] MEDS: amLODIPine BESYLATE 10 MG TABLET (FP) PO SCH (21:10)
[2017-08-26] MEDS ORDERED: CHLORHEXIDINE GLUCONATE 4% CLEANSER FOR DECOLONIZATION TP SCH (22:00)
[2017-08-26] MEDS ORDERED: MUPIROCIN 2% TOPICAL OINTMENT FOR DECOLONIZATION NS SCH (22:00)
--- NOTE | 2017-08-27 02:55 | FALL ---
Fall Exam - Event Witnessed fall: No Location of Fall: Patient Room Fall from: While ambulating - Pre-Fall Fall Risk: High Risk Mental Status: Alert Current Medications: Current Medications Generic Name Dose Route Start Last Admin Trade Name Freq PRN Reason Stop Dose Admin Acetaminophen 650 mg 08/26/17 15:07 Tylenol - PO Q8H PRN PAIN Albuterol Sulfate 1 amp 08/26/17 15:07 Ventolin 0.083% Nebulizer Soln - NEB Q4H PRN SHORT OF BREATH/WHEEZING Albuterol/Ipratropium 1 amp 08/26/17 18:00 08/26/17 23:29 Duoneb - NEB 1 amp QIDR IVANIA Administration Amlodipine Besylate 10 mg 08/26/17 22:00 08/26/17 21:10 Norvasc - PO 10 mg HS IVANIA Administration Aspirin 81 mg 08/27/17 10:00 Ecotrin - PO DAILY IVANIA Furosemide 20 mg 08/27/17 10:00 Lasix - PO DAILY IVANIA Gabapentin 300 mg 08/26/17 22:00 08/26/17 21:10 Neurontin - PO 300 mg HS IVANIA Administration Heparin Sodium (Porcine) 5,000 unit 08/26/17 15:00 08/26/17 21:10 Heparin - SQ 5,000 unit TID IVANIA Administration Levofloxacin 50 mls @ 50 mls/hr 08/27/17 10:00 Levaquin 250 Mg Premixed Ivpb - IVPB DAILY [facility] Insulin Aspart 1 vial 08/26/17 16:30 08/26/17 21:15 Novolog Vial Sliding Scale - SQ 6 units ACHS IVANIA Administration Protocol Lorazepam 1 mg 08/26/17 15:07 08/26/17 21:15 Ativan Injection - IVPUSH 1 mg Q12H PRN Administration ANXIETY Melatonin 10 mg 08/26/17 22:00 08/26/17 21:09 Melatonin PO 10 mg HS IVANIA Administration Metoprolol Succinate 100 mg 08/27/17 10:00 Toprol Xl - PO DAILY [facility] Multivitamins/Minerals/Vitamin C 1 tab 08/27/17 10:00 Tab-A-Vit - PO DAILY [facility] Nicotine 14 mg 08/27/17 10:00 Nicoderm Patch - TD DAILY [facility] Prednisone 40 mg 08/27/17 10:00 Deltasone - PO DAILY [facility] Ranolazine 500 mg 08/26/17 22:00 08/26/17 21:10 Ranexa - PO 500 mg BID IVANIA Administration Risperidone 1 mg 08/26/17 22:00 08/26/17 21:10 Risperdal - PO 1 mg HS IVANIA Administration - Post-Fall Patient Outcome: Pain Only (L- posterior olecranon) Exam Findings: Patient received supine at bedside. AAOx2. HEENT: Atraumatic, normocephalic, PERRL, +EOMs, Nares, Oral Pharynx patent. Neck: Supple, no Lymphadenopathy. Lungs: CTAB, Heart: S1, S2, RRR, no MRG. Abdomen: Soft, non- distended, non-tender, BS present. Musculoskeletal: No spinal process tenderness , FROM of all extremities. No obvious deformity. Pelvis: No TN to palpation. Treatment: Ice Pack Vital Signs: Vital Signs Temperature 98.6 F 08/26/17 14:00 Pulse Rate 89 08/26/17 18:00 Respiratory Rate 20 08/26/17 18:00 Blood Pressure 120/65 08/26/17 18:00 O2 Sat by Pulse Oximetry (%) 93 L 08/26/17 09:57 LOC Post-Fall: Unchanged Identify factors for HIGH RISK for Head Injury: None of the above
[2017-08-27] MEDS: ACETAMINOPHEN 325 MG TABLET (FP) PO PRN ×3 (03:59→20:14)
[2017-08-27] MEDS: HEPARIN NA (PORCINE) 5,000 UNITS/ML 1ML VIAL SQ SCH ×3 (06:18→21:20)
[2017-08-27] MEDS: INSULIN SLIDING SCALE (NOVOLOG) 1 VIAL SQ SCH ×2 (06:18→12:04)
[2017-08-27] MEDS: ALBUTEROL SO4 2.5/IPRATROPIUM 0.5 INH SOL 3 ML VIAL.NEB. NEB SCH ×4 (06:57→23:21)
[2017-08-27 07:57] LABS: BASOPHIL 0.2 % (0-2.0); EOSINOPHIL 0.2 % (0-4.5); MCH 31.5 pg (25.7-33.7); MCHC 31.6 g/dl (32.0-36.0); MEAN CELL VOLUME 99.7 fl (80-96); PLATELET COUNT 214 K/MM3 (134-434); RDW 16.5 % (11.6-15.6); WHITE BLOOD COUNT 5.6 K/mm3 (4.0-10.0)
[2017-08-27 08:17] LABS: ANION GAP 6 (8-16); CALCIUM 10.4 mg/dL (8.5-10.1); CO2 40 mmol/L (21-32); GLUCOSE,RANDOM 99 mg/dL (74-106)
[2017-08-27] MEDS ORDERED: PT OWN MED DRAWER 7, Y5N ONE (08:18)
[2017-08-27] MEDS: predniSONE 20 MG TABLET (UD) PO SCH (09:03)
[2017-08-27] MEDS: FUROSEMIDE 20 MG TABLET (FP) PO SCH (09:04)
[2017-08-27] MEDS: NICOTINE 14 MG/24 HOURS TOPICAL PATCH TD SCH (09:04)
[2017-08-27] MEDS: RANOLAZINE E.R. 500 MG TABLET (FP) PO SCH ×2 (09:04→21:20)
[2017-08-27] MEDS: METOPROLOL SUCCINATE 100 MG TAB.SR.24H (FP) PO SCH (09:04)
[2017-08-27] MEDS: ASPIRIN COATED 81 MG TABLET.EC PO SCH (09:04)
[2017-08-27] MEDS: MULTIVITAMINS (DAILY MVI) TABLET (FP) PO SCH (09:04)
[2017-08-27] MEDS ORDERED: LEVOFLOXACIN 250 MG TABLET (FP) PO ONE (10:00)
[2017-08-27] MEDS ORDERED: LEVOFLOXACIN 250 MG IVPB 50 ML IVPB SCH (10:00)
--- NOTE | 2017-08-27 11:53 | PN ---
Progress Note, Physician Chief Complaint: Events noted Appears a little lethargic History of Present Illness: Patient was seen and examined. Awake and alert. Chart was reviewed Denies chest pain, SOB or palpitations Episode of fall last night - Current Medication List Current Medications: Active Medications Acetaminophen (Tylenol -) 650 mg PO Q8H PRN PRN Reason: PAIN Last Admin: 08/27/17 03:59 Dose: 650 mg Albuterol Sulfate (Ventolin 0.083% Nebulizer Soln -) 1 amp NEB Q4H PRN PRN Reason: SHORT OF BREATH/WHEEZING Albuterol/Ipratropium (Duoneb -) 1 amp NEB QIDR [facility] Last Admin: 08/27/17 06:57 Dose: Not Given Amlodipine Besylate (Norvasc -) 10 mg PO HS [facility] Last Admin: 08/26/17 21:10 Dose: 10 mg Aspirin (Ecotrin -) 81 mg PO DAILY [facility] Last Admin: 08/27/17 09:04 Dose: 81 mg Furosemide (Lasix -) 20 mg PO DAILY [facility] Last Admin: 08/27/17 09:04 Dose: 20 mg Gabapentin (Neurontin -) 300 mg PO HS [facility] Last Admin: 08/26/17 21:10 Dose: 300 mg Heparin Sodium (Porcine) (Heparin -) 5,000 unit SQ TID [facility] Last Admin: 08/27/17 06:18 Dose: 5,000 unit Insulin Aspart (Novolog Vial Sliding Scale -) 1 vial SQ ACHS IVANIA PRN Reason: Protocol Last Admin: 08/27/17 06:18 Dose: Not Given Lorazepam (Ativan Injection -) 1 mg IVPUSH Q12H PRN PRN Reason: ANXIETY Last Admin: 08/26/17 21:15 Dose: 1 mg Melatonin (Melatonin) 10 mg PO HS [facility] Last Admin: 08/26/17 21:09 Dose: 10 mg Metoprolol Succinate (Toprol Xl -) 100 mg PO DAILY [facility] Last Admin: 08/27/17 09:04 Dose: 100 mg Multivitamins/Minerals/Vitamin C (Tab-A-Vit -) 1 tab PO DAILY [facility] Last Admin: 08/27/17 09:04 Dose: 1 tab Nicotine (Nicoderm Patch -) 14 mg TD DAILY [facility] Last Admin: 08/27/17 09:04 Dose: 14 mg Prednisone (Deltasone -) 40 mg PO DAILY [facility] Last Admin: 08/27/17 09:03 Dose: 40 mg Ranolazine (Ranexa -) 500 mg PO BID [facility] Last Admin: 08/27/17 09:04 Dose: 500 mg Risperidone (Risperdal -) 1 mg PO HS [facility] Last Admin: 08/26/17 21:10 Dose: 1 mg - Objective Vital Signs: Vital Signs Temperature 98.7 F 08/27/17 10:00 Pulse Rate 87 08/27/17 10:00 Respiratory Rate 20 08/27/17 10:00 Blood Pressure 131/72 08/27/17 10:00 O2 Sat by Pulse Oximetry (%) 98 08/27/17 10:00 Neck: Yes: Supple Cardiovascular: Yes: Regular Rate and Rhythm, S1, S2 Respiratory: Yes: Diminished Gastrointestinal: Yes: Normal Bowel Sounds, Soft. No: Tenderness Edema: No Labs: CBC, BMP 08/27/17 05:30 08/27/17 05:30 Problem List - Problems (1) Acute on chronic diastolic (congestive) heart failure Code(s): I50.33 - ACUTE ON CHRONIC DIASTOLIC (CONGESTIVE) HEART FAILURE (2) Acute on chronic respiratory failure with hypoxia Code(s): J96.21 - ACUTE AND CHRONIC RESPIRATORY FAILURE WITH HYPOXIA (3) COPD exacerbation Code(s): J44.1 - CHRONIC OBSTRUCTIVE PULMONARY DISEASE W (ACUTE) EXACERBATION (4) Headache Code(s): R51 - HEADACHE (5) Acute kidney injury Code(s): N17.9 - ACUTE KIDNEY FAILURE, UNSPECIFIED (6) Confusion Code(s): R41.0 - DISORIENTATION, UNSPECIFIED (7) COPD (chronic obstructive pulmonary disease) Code(s): J44.9 - CHRONIC OBSTRUCTIVE PULMONARY DISEASE, UNSPECIFIED (8) Diabetes mellitus Code(s): E11.9 - TYPE 2 DIABETES MELLITUS WITHOUT COMPLICATIONS Qualifiers: Diabetes mellitus type: type 2 Diabetes mellitus complication status: without complication Diabetes mellitus telegraph repeater technician insulin use: without telegraph repeater technician use Qualified Code(s): E11.9 - Type 2 diabetes mellitus without complications (9) Hypertension Code(s): I10 - ESSENTIAL (PRIMARY) HYPERTENSION Qualifiers: Hypertension type: essential hypertension Qualified Code(s): I10 - Essential (primary) hypertension (10) Right bundle branch block (RBBB) Code(s): I45.10 - UNSPECIFIED RIGHT BUNDLE-BRANCH BLOCK Assessment/Plan 1. Acute on chronic hypoxic respiratory failure 2. Acute on chronic diastolic heart failure 3. Acute COPD exacerbation 4. Coronary artery disease with obstructive RCA and RPDA, angina pectoris 5. Hypertension/hypertensive cardiovascular disease 6. Type 2 diabetes mellitus 7. Ascending thoracic aortic aneurysm 8. History of rheumatoid arthritis 9. Right bundle branch block 10. Previous history of GI bleed 11. Neutropenia 12 PLACIDO PLAN: 1. Diuresis with monitoring renal function and electrolytes 2. Continue bronchodilator, oral steroid taper, empiric antibiotic course, O2 as needed to keep SpO2 >90% and BIPAP 3. Continue ASA, Metoprolol XL, Hyzaar, Amlodipine and Ranexa as tolerated 4. Continue DVT and GI prophylaxis 5. Head CT Further plans are to follow Neto Valdez MD
--- NOTE | 2017-08-27 15:48 | PN ---
Physical Exam: SUBJECTIVE: Patient seen and examined. Ms. Walls says she was embarrassed she wet the bed last night and tried to get out bed when she fell. Today she feels alright. Events: - s/p fall overnight, head ct negative this AM OBJECTIVE: Vital Signs Period Temp Pulse Resp BP Sys/Cox Pulse Ox Last 24 Hr 98.1 F-98.7 F 80-100 16-20 106-141/56-76 98 PE Neuro: alert, awake, cn 2-12intact Pulm: LLL crackles, diminished, +nc CV: s1 s2 rrr no mrg Abd: epigastric area of hardening, soft, non tender, nd Ext: warm, no le edema skin: left elbow skin tear Laboratory Results - last 24 hr 08/26/17 08/27/17 08/27/17 21:14 05:30 05:30 WBC 5.6 RBC 4.18 Hgb 13.2 Hct 41.7 MCV 99.7 H MCH 31.5 MCHC 31.6 L RDW 16.5 H Plt Count 214 MPV 8.0 Neutrophils % 72.0 D Lymphocytes % 17.9 D Monocytes % 9.7 D Eosinophils % 0.2 D Basophils % 0.2 Sodium 143 Potassium 3.6 Chloride 97 L Carbon Dioxide 40 H Anion Gap 6 L BUN 49 H D Creatinine 1.0 D POC Glucometer 261 Random Glucose 99 D Calcium 10.4 H Active Medications Generic Name Dose Route Start Last Admin Trade Name Freq PRN Reason Stop Dose Admin Acetaminophen 650 mg 08/26/17 15:07 08/27/17 03:59 Tylenol - PO 650 mg Q8H PRN Administration PAIN Albuterol Sulfate 1 amp 08/26/17 15:07 Ventolin 0.083% Nebulizer Soln - NEB Q4H PRN SHORT OF BREATH/WHEEZING Albuterol/Ipratropium 1 amp 08/26/17 18:00 08/27/17 11:56 Duoneb - NEB 1 amp QIDR IVANIA Administration Amlodipine Besylate 10 mg 08/26/17 22:00 08/26/17 21:10 Norvasc - PO 10 mg HS IVANIA Administration Aspirin 81 mg 08/27/17 10:00 08/27/17 09:04 Ecotrin - PO 81 mg DAILY IVANIA Administration Furosemide 20 mg 08/27/17 10:00 08/27/17 09:04 Lasix - PO 20 mg DAILY IVANIA Administration Gabapentin 300 mg 08/26/17 22:00 08/26/17 21:10 Neurontin - PO 300 mg HS IVANIA Administration Heparin Sodium (Porcine) 5,000 unit 08/26/17 15:00 08/27/17 06:18 Heparin - SQ 5,000 unit TID IVANIA Administration Insulin Aspart 1 vial 08/26/17 16:30 08/27/17 12:04 Novolog Vial Sliding Scale - SQ Not Given ACHS [facility] Protocol Lorazepam 1 mg 08/26/17 15:07 08/26/17 21:15 Ativan Injection - IVPUSH 1 mg Q12H PRN Administration ANXIETY Melatonin 10 mg 08/26/17 22:00 08/26/17 21:09 Melatonin PO 10 mg HS IVANIA Administration Metoprolol Succinate 100 mg 08/27/17 10:00 08/27/17 09:04 Toprol Xl - PO 100 mg DAILY [facility]IA Administration Multivitamins/Minerals/Vitamin C 1 tab 08/27/17 10:00 08/27/17 09:04 Tab-A-Vit - PO 1 tab DAILY [facility]IA Administration Nicotine 14 mg 08/27/17 10:00 08/27/17 09:04 Nicoderm Patch - TD 14 mg DAILY [facility] Administration Prednisone 40 mg 08/27/17 10:00 08/27/17 09:03 Deltasone - PO 40 mg DAILY [facility]IA Administration Ranolazine 500 mg 08/26/17 22:00 08/27/17 09:04 Ranexa - PO 500 mg BID IVANIA Administration Risperidone 1 mg 08/26/17 22:00 08/26/17 21:10 Risperdal - PO 1 mg HS IVANIA Administration Imaging: - ECHO:06/14/17: Normal LV size and fxn, abnl LV compliance, mild ao dilatation, no sig valve abnl Assessment: 71 year old female with pmhx of COPD (home oxygen dependent on 2 liters), abdominal mass in the distal stomach, recently found to have elevated CEA on last admission s/p EGD 08/26, HTN, HLD, ascending aortic aneurysm, chronic hypoxic respiratory failure, DM II, TIAs, depression, rheumatoid arthritis and dementia admitted with acute respiratory failure. Plan: 1. Acute on Chronic Hypoxic Respiratory Failure - Tolerating nasal cannula - Prednisone 40mg daily (day 2) 2. ?PNA - Complete Levaquin day 5 3. Acute on chronic diastolic HF - Transition to 20mg daily lasix 4. HTN - BP stable - Resume hyzaar tomorrow - Metoprolol xl 100mg day - Norvasc 10mg day 5. CAD/angina pectoris - ASA daily - Ranexa 6. Depression/Dementia - Risperdal 1mg PO 7. Rheumatoid Arthritis - Neurontin 300mg 8. PLACIDO - Resolved - Resume hyzaar tomorrow 9. DM II - Requiring little coverage, stop sliding scale - Resume Po anti diabetics on discharge 10. Hypercalcemia - Corrected ca 11.2 - Holding fluids - Possible due to abdominal malignancy, elevated CEA, pt initial bx inconclusive , will need outpt GI follow up 11. s/p fall - Head CT negative - PT consult - Will likely need rehab, pt lives alone, de conditioned Visit type - Emergency Visit Emergency Visit: Yes ED Registration Date: 08/23/17 Care time: The patient presented to the Emergency Department on the above date and was hospitalized for further evaluation of their emergent condition. - New Patient This patient is new to me today: No - Critical Care Critical Care patient: No
[2017-08-27] MEDS ORDERED: MAGNESIUM OXIDE 400 MG TABLET (FP) PO ONE (19:30)
[2017-08-27] MEDS: amLODIPine BESYLATE 10 MG TABLET (FP) PO SCH (21:20)
[2017-08-27] MEDS: GABAPENTIN 300 MG CAPSULE (FP) PO SCH (21:20)
[2017-08-27] MEDS: risperiDONE 1 MG TABLET (FP) PO SCH (21:20)
[2017-08-27] MEDS: MELATONIN 5 MG TABLETS PO SCH (21:20)
[2017-08-27] MEDS ORDERED: IBUPROFEN 600 MG TABLET (FP) PO ONE (22:03)
[2017-08-28] MEDS: ALBUTEROL SO4 2.5/IPRATROPIUM 0.5 INH SOL 3 ML VIAL.NEB. NEB SCH ×2 (06:05→11:46)
[2017-08-28] MEDS: HEPARIN NA (PORCINE) 5,000 UNITS/ML 1ML VIAL SQ SCH ×4 (06:28→21:23)
[2017-08-28 07:38] LABS: ANION GAP 4 (8-16); CALCIUM 10.7 mg/dL (8.5-10.1); CO2 43 mmol/L (21-32); CREATININE 0.9 mg/dL (0.55-1.02); GLUCOSE,RANDOM 105 mg/dL (74-106)
[2017-08-28] MEDS: ASPIRIN COATED 81 MG TABLET.EC PO SCH (09:05)
[2017-08-28] MEDS: predniSONE 20 MG TABLET (UD) PO SCH (09:05)
[2017-08-28] MEDS: NICOTINE 14 MG/24 HOURS TOPICAL PATCH TD SCH (09:05)
[2017-08-28] MEDS: FUROSEMIDE 20 MG TABLET (FP) PO SCH (09:05)
[2017-08-28] MEDS: METOPROLOL SUCCINATE 100 MG TAB.SR.24H (FP) PO SCH (09:06)
[2017-08-28] MEDS: MULTIVITAMINS (DAILY MVI) TABLET (FP) PO SCH (09:06)
[2017-08-28] MEDS: RANOLAZINE E.R. 500 MG TABLET (FP) PO SCH ×2 (09:06→21:25)
--- NOTE | 2017-08-28 09:17 | PN ---
Progress Note, Physician Chief Complaint: Events noted Complains of pain in left side of her body due to fall the other day History of Present Illness: Patient was seen and examined. Awake and alert. Chart was reviewed Denies chest pain, SOB or palpitations - Current Medication List Current Medications: Active Medications Acetaminophen (Tylenol -) 650 mg PO Q8H PRN PRN Reason: PAIN Last Admin: 08/27/17 20:14 Dose: 650 mg Albuterol Sulfate (Ventolin 0.083% Nebulizer Soln -) 1 amp NEB Q4H PRN PRN Reason: SHORT OF BREATH/WHEEZING Albuterol/Ipratropium (Duoneb -) 1 amp NEB QIDR [facility] Last Admin: 08/28/17 06:05 Dose: Not Given Amlodipine Besylate (Norvasc -) 10 mg PO HS [facility] Last Admin: 08/27/17 21:20 Dose: 10 mg Aspirin (Ecotrin -) 81 mg PO DAILY [facility] Last Admin: 08/28/17 09:05 Dose: 81 mg Furosemide (Lasix -) 20 mg PO DAILY [facility] Last Admin: 08/28/17 09:05 Dose: 20 mg Gabapentin (Neurontin -) 300 mg PO HS [facility] Last Admin: 08/27/17 21:20 Dose: 300 mg Heparin Sodium (Porcine) (Heparin -) 5,000 unit SQ TID [facility] Last Admin: 08/28/17 06:30 Dose: 5,000 unit Lorazepam (Ativan Injection -) 1 mg IVPUSH Q12H PRN PRN Reason: ANXIETY Last Admin: 08/26/17 21:15 Dose: 1 mg Melatonin (Melatonin) 10 mg PO HS [facility] Last Admin: 08/27/17 21:20 Dose: 10 mg Metoprolol Succinate (Toprol Xl -) 100 mg PO DAILY [facility] Last Admin: 08/28/17 09:06 Dose: 100 mg Multivitamins/Minerals/Vitamin C (Tab-A-Vit -) 1 tab PO DAILY [facility] Last Admin: 08/28/17 09:06 Dose: 1 tab Nicotine (Nicoderm Patch -) 14 mg TD DAILY [facility] Last Admin: 08/28/17 09:05 Dose: 14 mg Prednisone (Deltasone -) 40 mg PO DAILY [facility] Last Admin: 08/28/17 09:05 Dose: 40 mg Ranolazine (Ranexa -) 500 mg PO BID [facility] Last Admin: 08/28/17 09:06 Dose: 500 mg Risperidone (Risperdal -) 1 mg PO HS [facility] Last Admin: 08/27/17 21:20 Dose: 1 mg - Objective Vital Signs: Vital Signs Temperature 98.1 F 08/28/17 06:29 Pulse Rate 86 08/28/17 06:29 Respiratory Rate 20 08/28/17 06:29 Blood Pressure 128/76 08/28/17 06:29 O2 Sat by Pulse Oximetry (%) 98 08/27/17 21:00 Neck: Yes: Supple Cardiovascular: Yes: Regular Rate and Rhythm, S1, S2 Respiratory: Yes: CTA Bilaterally Gastrointestinal: Yes: Normal Bowel Sounds, Soft. No: Tenderness Edema: No Additional Findings/Remarks: - Review of Systems Constitutional: no symptoms reported Respiratory: denies: Cough or Sputum Production Cardiovascular: as noted above Gastrointestinal: denies Nausea, Vomiting, Diarrhea, Constipation or Abdominal Pain Genitourinary: No symptoms reported Musculoskeletal: Weakness Endocrine: No symptoms reported Labs: CBC, BMP 08/27/17 05:30 08/28/17 05:25 Problem List - Problems (1) Acute on chronic diastolic (congestive) heart failure Code(s): I50.33 - ACUTE ON CHRONIC DIASTOLIC (CONGESTIVE) HEART FAILURE (2) Acute on chronic respiratory failure with hypoxia Code(s): J96.21 - ACUTE AND CHRONIC RESPIRATORY FAILURE WITH HYPOXIA (3) COPD exacerbation Code(s): J44.1 - CHRONIC OBSTRUCTIVE PULMONARY DISEASE W (ACUTE) EXACERBATION (4) Headache Code(s): R51 - HEADACHE (5) Acute kidney injury Code(s): N17.9 - ACUTE KIDNEY FAILURE, UNSPECIFIED (6) Confusion Code(s): R41.0 - DISORIENTATION, UNSPECIFIED (7) COPD (chronic obstructive pulmonary disease) Code(s): J44.9 - CHRONIC OBSTRUCTIVE PULMONARY DISEASE, UNSPECIFIED (8) Diabetes mellitus Code(s): E11.9 - TYPE 2 DIABETES MELLITUS WITHOUT COMPLICATIONS Qualifiers: Diabetes mellitus type: type 2 Diabetes mellitus complication status: without complication Diabetes mellitus long term care pharmacist insulin use: without long term care pharmacist use Qualified Code(s): E11.9 - Type 2 diabetes mellitus without complications; E11.9 - Type 2 diabetes mellitus without complications; E11.9 - Type 2 diabetes mellitus without complications; E11.9 - Type 2 diabetes mellitus without complications (9) Hypertension Code(s): I10 - ESSENTIAL (PRIMARY) HYPERTENSION Qualifiers: Hypertension type: essential hypertension Qualified Code(s): I10 - Essential (primary) hypertension; I10 - Essential (primary) hypertension; I10 - Essential (primary) hypertension (10) Right bundle branch block (RBBB) Code(s): I45.10 - UNSPECIFIED RIGHT BUNDLE-BRANCH BLOCK Assessment/Plan 1. Acute on chronic hypoxic respiratory failure 2. Acute on chronic diastolic heart failure 3. Acute COPD exacerbation 4. Coronary artery disease with obstructive RCA and RPDA, angina pectoris 5. Hypertension/hypertensive cardiovascular disease 6. Type 2 diabetes mellitus 7. Ascending thoracic aortic aneurysm 8. History of rheumatoid arthritis 9. Right bundle branch block 10. Previous history of GI bleed 11. Neutropenia 12 PLACIDO PLAN: 1. Diuresis with monitoring renal function and electrolytes 2. Continue bronchodilator, oral steroid taper, empiric antibiotic course, O2 as needed to keep SpO2 >90% and BIPAP 3. Continue ASA, Metoprolol XL, Hyzaar (restart), Amlodipine and Ranexa as tolerated 4. Continue DVT and GI prophylaxis 5. Head CT noted unremarkable 6. PT evaluation prior to deciding discharge - fall precaution Further plans are to follow. She may be transferred off telemetry Neto Valdez MD
[2017-08-28] MEDS ORDERED: LOSARTAN 50MG/HCTZ 12.5MG 1 TAB (FP) PO SCH (10:00)
--- NOTE | 2017-08-28 11:06 | PN ---
Progress Note (short form) - Note Progress Note: PULMONARY RESTING COMFORTABLY VSS/AFEBRILE ANICTERIC RHONCHI SCATTERED S1S2 BS+ OBESE NO EDEMA LABS/MEDS/NOTES/IMAGING REVIEWED Acute on Chronic Hypoxic Respiratory Failure Acute on Chronic Diastolic Heart Failure Acute COPD Exacerbation r/o Pneumonia HTN DM Active Smoker - Lasix - monitor urine output, creatinine - daily weights, I/Os - Prednisone - Inhaled bronchodilators standing and PRN - O2 to keep SpO2 >90% - BiPAP as needed to assist in work of breathing - Smoking cessation - DVT prophylaxis - Telemetry monitoring Jessica FRANKLIN MD
[2017-08-28] MEDS ORDERED: ACETAMINOPHEN 325 MG TABLET (FP) PO PRN (14:28)
--- NOTE | 2017-08-28 15:23 | PN ---
Physical Exam: SUBJECTIVE: Patient seen and examined. She has left sided body pain from her fall. She wants to go home. Discussed care with daughter OBJECTIVE: Vital Signs Period Temp Pulse Resp BP Sys/Cox Pulse Ox Last 24 Hr 98 F-99.1 F 83-94 16-20 117-131/63-76 93-98 PE Neuro: alert, awake, cn 2-12intact Pulm: LLL crackles +nc CV: s1 s2 rrr no mrg Abd: s nt + bs Ext: warm, no le edema skin: left elbow skin tear, + l elbow tenderness able to extend Laboratory Results - last 24 hr 08/28/17 05:25 Sodium 144 Potassium 3.6 Chloride 97 L Carbon Dioxide 43 H Anion Gap 4 L BUN 37 H D Creatinine 0.9 Random Glucose 105 Calcium 10.7 H Active Medications Generic Name Dose Route Start Last Admin Trade Name Freq PRN Reason Stop Dose Admin Acetaminophen 650 mg 08/28/17 14:28 Tylenol - PO Q6H PRN PAIN Albuterol Sulfate 1 amp 08/26/17 15:07 Ventolin 0.083% Nebulizer Soln - NEB Q4H PRN SHORT OF BREATH/WHEEZING Albuterol/Ipratropium 1 amp 08/26/17 18:00 08/28/17 11:46 Duoneb - NEB 1 amp QIDR IVANIA Administration Amlodipine Besylate 10 mg 08/26/17 22:00 08/27/17 21:20 Norvasc - PO 10 mg HS IVANIA Administration Aspirin 81 mg 08/27/17 10:00 08/28/17 09:05 Ecotrin - PO 81 mg DAILY IVANIA Administration Furosemide 20 mg 08/27/17 10:00 08/28/17 09:05 Lasix - PO 20 mg DAILY IVANIA Administration Gabapentin 300 mg 08/26/17 22:00 08/27/17 21:20 Neurontin - PO 300 mg HS IVANIA Administration Heparin Sodium (Porcine) 5,000 unit 08/26/17 15:00 08/28/17 14:40 Heparin - SQ 5,000 unit TID IVANIA Administration Lorazepam 1 mg 08/26/17 15:07 08/26/17 21:15 Ativan Injection - IVPUSH 1 mg Q12H PRN Administration ANXIETY Melatonin 10 mg 08/26/17 22:00 08/27/17 21:20 Melatonin PO 10 mg HS IVANIA Administration Metoprolol Succinate 100 mg 08/27/17 10:00 08/28/17 09:06 Toprol Xl - PO 100 mg DAILY IVANIA Administration Multivitamins/Minerals/Vitamin C 1 tab 08/27/17 10:00 08/28/17 09:06 Tab-A-Vit - PO 1 tab DAILY IVANIA Administration Nicotine 14 mg 08/27/17 10:00 08/28/17 09:05 Nicoderm Patch - TD 14 mg DAILY IVANIA Administration Prednisone 40 mg 08/27/17 10:00 08/28/17 09:05 Deltasone - PO 40 mg DAILY IVANIA Administration Ranolazine 500 mg 08/26/17 22:00 08/28/17 09:06 Ranexa - PO 500 mg BID IVANIA Administration Risperidone 1 mg 08/26/17 22:00 08/27/17 21:20 Risperdal - PO 1 mg HS IVANIA Administration Imaging: - ECHO:06/14/17: Normal LV size and fxn, abnl LV compliance, mild ao dilatation, no sig valve abnl Assessment: 71 year old female with pmhx of COPD (home oxygen dependent on 2 liters), abdominal mass in the distal stomach, recently found to have elevated CEA on last admission s/p EGD 08/26, HTN, HLD, ascending aortic aneurysm, chronic hypoxic respiratory failure, DM II, TIAs, depression, rheumatoid arthritis and dementia admitted with acute respiratory failure. Plan: 1. Acute on Chronic Hypoxic Respiratory Failure - Encourage Bipap overnight - Tolerating nasal cannula - Prednisone 40mg daily (day 2) 2. ?PNA - Completed Levaquin 5 days 3. Acute on chronic diastolic HF - Lasix 20mg daily 4. HTN - BP stable - Resume hyzaar tomorrow - Metoprolol xl 100mg day - Norvasc 10mg day 5. CAD/angina pectoris - ASA daily - Ranexa 6. Depression/Dementia - Risperdal 1mg PO 7. Rheumatoid Arthritis - Neurontin 300mg 8. PLACIDO - Resolved - Will restart hyzaar if bp elevated 9. DM II - BGM ACBID - Resume Po anti diabetics on discharge 10. Hypercalcemia - Corrected ca ~12 - Holding fluids due to CHF - Possible due to abdominal malignancy, elevated CEA, pt initial bx inconclusive , will need outpt GI follow up 11. s/p fall - Head CT negative - PT daily - Will likely need rehab, pt lives alone, de conditioned Visit type - Emergency Visit Emergency Visit: Yes ED Registration Date: 08/23/17 Care time: The patient presented to the Emergency Department on the above date and was hospitalized for further evaluation of their emergent condition. - New Patient This patient is new to me today: No - Critical Care Critical Care patient: No
[2017-08-28] MEDS ORDERED: INSULIN (NOVOLOG) ASPART 100 UNITS/ML 10ML VIAL ONE (16:47)
[2017-08-28] MEDS: INSULIN SLIDING SCALE (NOVOLOG) 1 VIAL SQ SCH (16:48)
[2017-08-28] MEDS: ALBUTEROL SO4 2.5/IPRATROPIUM 0.5 INH SOL 3 ML VIAL.NEB. NEB PRN (17:13)
[2017-08-28] MEDS: LORazepam 1 MG TABLET PO PRN (20:18)
[2017-08-28] MEDS ORDERED: PT OWN MED DRAWER 7, Y5N ONE (21:15)
[2017-08-28] MEDS: GABAPENTIN 300 MG CAPSULE (FP) PO SCH (21:24)
[2017-08-28] MEDS: risperiDONE 1 MG TABLET (FP) PO SCH (21:24)
[2017-08-28] MEDS: amLODIPine BESYLATE 10 MG TABLET (FP) PO SCH (21:25)
[2017-08-28] MEDS: MELATONIN 5 MG TABLETS PO SCH (22:54)
[2017-08-29] MEDS: HEPARIN NA (PORCINE) 5,000 UNITS/ML 1ML VIAL SQ SCH ×2 (06:08→14:45)
[2017-08-29] MEDS: INSULIN SLIDING SCALE (NOVOLOG) 1 VIAL SQ SCH (06:22)
[2017-08-29 07:12] LABS: ALBUMIN 2.7 g/dl (3.4-5.0); ANION GAP 1 (8-16); BILIRUBIN,TOTAL 0.7 mg/dL (0.2-1.0); CALCIUM 10.5 mg/dL (8.5-10.1); CO2 43 mmol/L (21-32); CREATININE 0.8 mg/dL (0.55-1.02); GLUCOSE,RANDOM 97 mg/dL (74-106); SGOT/AST 10 U/L (15-37); SGPT/ALT 16 U/L (12-78); TOT PROT 5.8 g/dl (6.4-8.2)
[2017-08-29 07:13] LABS: ALK PHOS 53 U/L (45-117)
[2017-08-29] MEDS: ASPIRIN COATED 81 MG TABLET.EC PO SCH (09:38)
[2017-08-29] MEDS: LORazepam 1 MG TABLET PO PRN (09:38)
[2017-08-29] MEDS: RANOLAZINE E.R. 500 MG TABLET (FP) PO SCH (09:38)
[2017-08-29] MEDS: FUROSEMIDE 20 MG TABLET (FP) PO SCH (09:39)
[2017-08-29] MEDS: NICOTINE 14 MG/24 HOURS TOPICAL PATCH TD SCH (09:39)
[2017-08-29] MEDS: predniSONE 20 MG TABLET (UD) PO SCH (09:39)
[2017-08-29] MEDS: METOPROLOL SUCCINATE 100 MG TAB.SR.24H (FP) PO SCH (09:39)
[2017-08-29] MEDS: MULTIVITAMINS (DAILY MVI) TABLET (FP) PO SCH (09:39)
[2017-08-29 09:53] VITALS: BP 136/78; TEMP 97.9
--- NOTE | 2017-08-29 11:13 | PN ---
Progress Note, Physician History of Present Illness: Dyspnea, cough, subjective fevers resolved, comfortable on NC. - Current Medication List Current Medications: Active Medications Acetaminophen (Tylenol -) 650 mg PO Q6H PRN PRN Reason: PAIN Last Admin: 08/28/17 17:45 Dose: 650 mg Albuterol Sulfate (Ventolin 0.083% Nebulizer Soln -) 1 amp NEB Q4H PRN PRN Reason: SHORT OF BREATH/WHEEZING Albuterol/Ipratropium (Duoneb -) 1 amp NEB QIDR PRN PRN Reason: SHORTNESS OF BREATH Last Admin: 08/28/17 17:13 Dose: 1 amp Amlodipine Besylate (Norvasc -) 10 mg PO HS [facility] Last Admin: 08/28/17 21:25 Dose: 10 mg Aspirin (Ecotrin -) 81 mg PO DAILY [facility] Last Admin: 08/29/17 09:38 Dose: 81 mg Furosemide (Lasix -) 20 mg PO DAILY [facility] Last Admin: 08/29/17 09:39 Dose: 20 mg Gabapentin (Neurontin -) 300 mg PO HS [facility] Last Admin: 08/28/17 21:24 Dose: 300 mg Heparin Sodium (Porcine) (Heparin -) 5,000 unit SQ TID IVANIA Last Admin: 08/29/17 06:08 Dose: 5,000 unit Insulin Aspart (Novolog Vial Sliding Scale -) 1 vial SQ BIDAC IVANIA PRN Reason: Protocol Last Admin: 08/29/17 06:22 Dose: Not Given Lorazepam (Ativan -) 1 mg PO BID PRN PRN Reason: ANXIETY Last Admin: 08/29/17 09:38 Dose: 1 mg Melatonin (Melatonin) 10 mg PO HS [facility] Last Admin: 08/28/17 22:54 Dose: 10 mg Metoprolol Succinate (Toprol Xl -) 100 mg PO DAILY [facility] Last Admin: 08/29/17 09:39 Dose: 100 mg Multivitamins/Minerals/Vitamin C (Tab-A-Vit -) 1 tab PO DAILY [facility] Last Admin: 08/29/17 09:39 Dose: 1 tab Nicotine (Nicoderm Patch -) 14 mg TD DAILY [facility] Last Admin: 08/29/17 09:39 Dose: 14 mg Prednisone (Deltasone -) 40 mg PO DAILY [facility] Last Admin: 08/29/17 09:39 Dose: 40 mg Ranolazine (Ranexa -) 500 mg PO BID [facility] Last Admin: 08/29/17 09:38 Dose: 500 mg Risperidone (Risperdal -) 1 mg PO HS [facility] Last Admin: 08/28/17 21:24 Dose: 1 mg - Objective Vital Signs: Vital Signs Temperature 97.9 F 08/29/17 09:00 Pulse Rate 87 08/29/17 09:00 Respiratory Rate 20 08/29/17 09:00 Blood Pressure 136/78 08/29/17 09:00 O2 Sat by Pulse Oximetry (%) 92 L 08/29/17 09:00 Constitutional: Yes: No Distress, Calm Neck: Yes: Supple Cardiovascular: Yes: Regular Rate and Rhythm Respiratory: Yes: Regular, Diminished, On Nasal O2 Gastrointestinal: Yes: Normal Bowel Sounds, Soft, Abdomen, Obese Edema: No Labs: CBC, BMP 08/27/17 05:30 08/29/17 06:25 INR, PTT INR 1.06 (0.82-1.09) 08/23/17 14:34 Problem List - Problems (1) Acute on chronic diastolic (congestive) heart failure Code(s): I50.33 - ACUTE ON CHRONIC DIASTOLIC (CONGESTIVE) HEART FAILURE (2) Acute on chronic respiratory failure with hypoxia Code(s): J96.21 - ACUTE AND CHRONIC RESPIRATORY FAILURE WITH HYPOXIA (3) Acute kidney injury Code(s): N17.9 - ACUTE KIDNEY FAILURE, UNSPECIFIED (4) COPD (chronic obstructive pulmonary disease) Code(s): J44.9 - CHRONIC OBSTRUCTIVE PULMONARY DISEASE, UNSPECIFIED (5) Diabetes mellitus Code(s): E11.9 - TYPE 2 DIABETES MELLITUS WITHOUT COMPLICATIONS Qualifiers: Diabetes mellitus type: type 2 Diabetes mellitus complication status: without complication Diabetes mellitus exterminator helper termite insulin use: without exterminator helper termite use Qualified Code(s): E11.9 - Type 2 diabetes mellitus without complications; E11.9 - Type 2 diabetes mellitus without complications; E11.9 - Type 2 diabetes mellitus without complications; E11.9 - Type 2 diabetes mellitus without complications (6) Hypertension Code(s): I10 - ESSENTIAL (PRIMARY) HYPERTENSION Qualifiers: Hypertension type: essential hypertension Qualified Code(s): I10 - Essential (primary) hypertension; I10 - Essential (primary) hypertension; I10 - Essential (primary) hypertension (7) Right bundle branch block (RBBB) Code(s): I45.10 - UNSPECIFIED RIGHT BUNDLE-BRANCH BLOCK Assessment/Plan 06/14/2017 Echo: Normal LV size and fxn, abnl LV compliance, mild ao dilatation, no sig valve abnl 1. Acute on chronic hypoxic respiratory failure resolved 2. Acute on Chronic Diastolic Heart Failure resolved 3. Acute COPD Exacerbation 4. Coronary artery disease with obstructive RCA and RPDA, angina pectoris 5. Hypertension/hypertensive cardiovascular disease 6. Type 2 diabetes mellitus 7. Ascending thoracic aortic aneurysm 8. History of rheumatoid arthritis 9. Right bundle branch block 10. Previous history of GI bleed 11. Neutropenia 12 PLACIDO 13. Tobacco abuse PLAN: 1. Lasix 20 qd with monitor diuretic response, renal fxn and electrolytes 2. Continue bronchodilator, oral steroid taper, empiric abx course, O2 as needed to keep SpO2 >90%, BiPAP to assist in work of breathing 3. Continue ASA 81 qd, Metoprolol XL 100 qd, Hyzaar 1 qd, Amlodipine 10 qd and Ranexa 500 bid as tolerated 4. Continue DVT and GI prophylaxis 5. D/c planning in progress
[2017-08-29] MEDS: ALBUTEROL SO4 2.5/IPRATROPIUM 0.5 INH SOL 3 ML VIAL.NEB. NEB PRN (11:20)
[2017-08-29 11:31] VITALS: PULSE 83
--- NOTE | 2017-08-29 12:31 | DS ---
Physical Exam: SUBJECTIVE: Patient seen and examined. She says she feels saved today, she is oob to chair, ready for rehab. OBJECTIVE: Vital Signs Period Temp Pulse Resp BP Sys/Cox Pulse Ox Last 24 Hr 97.9 F-99.1 F 79-89 17-20 119-136/63-78 92-95 PE Neuro: alert, awake, cn 2-12intact Pulm: LLL crackles +nc CV: s1 s2 rrr no mrg Abd: s nt + bs Ext: warm, no le edema skin: left elbow skin tear-dried , + l elbow tenderness able to extend Laboratory Results - last 24 hr 08/28/17 08/29/17 08/29/17 15:58 06:07 06:25 Sodium 142 Potassium 3.7 Chloride 98 Carbon Dioxide 43 H Anion Gap 1 L BUN 30 H Creatinine 0.8 Creat Clearance w eGFR > 60 POC Glucometer 323 109 Random Glucose 97 Calcium 10.5 H Total Bilirubin 0.7 D AST 10 L D ALT 16 D Alkaline Phosphatase 53 Total Protein 5.8 L Albumin 2.7 L HOSPITAL COURSE: Date of Admission:08/23/17 Date of Discharge: 08/29/17 Minutes to complete discharge: 37 Discharge Summary Reason For Visit: CHF Current Active Problems Acute on chronic diastolic (congestive) heart failure (Acute) Acute on chronic respiratory failure with hypoxia (Acute) CHF (congestive heart failure) (Acute) COPD exacerbation (Acute) Respiration abnormal (Acute) Headache (Chronic) Hospital Course: Initial Hospital Course: Briefly, this 71 year old female with a significant past medical history of COPD (home oxygen dependent on 2 liters), abdominal mass in the distal stomach, recently found to have elevated CEA on last admission, HTN, HLD, ascending aortic aneurysm, chronic hypoxic respiratory failure, diabetes mellitus, TIAs, depression and dementia was sent by her PCP for worsening shortness of breath and wheezing for approximately 2 days with a productive cough and yellow sputum , subjective fever and chills. She sleeps on "a number" of pillows. In ED she was 62% on RA and placed on Bipap Imaging: - ECHO:06/14/17: Normal LV size and fxn, abnl LV compliance, mild ao dilatation, no sig valve abnormality Subsequent Hospital Course/Progress Note/Discharge Summary by a/p: Assessment: 71 year old female with pmhx of COPD (home oxygen dependent on 2 liters), abdominal mass in the distal stomach, recently found to have elevated CEA on last admission s/p EGD 08/26, HTN, HLD, ascending aortic aneurysm, chronic hypoxic respiratory failure, DM II, TIAs, depression, rheumatoid arthritis and dementia admitted with acute respiratory failure. Plan: 1. Acute on Chronic Hypoxic Respiratory Failure - s/p Bipap, however refuses overnight once on floors - Tolerating nasal cannula, dependent - Taper Prednisone 40mg x4 days, 30mg x4days, 20mg 4 days, 10mg x4days 2. ?PNA - Completed empiric Levaquin 5 days 3. Acute on chronic diastolic HF exacerbation - S/p IV diuresis - Continue Lasix 20mg daily x1 month 4. HTN - Hyzaar 1tab day - Metoprolol xl 100mg day - Norvasc 10mg day 5. CAD/angina pectoris - ASA daily - Ranexa 500mg BID 6. Depression/Dementia - Risperdal 1mg PO 7. Rheumatoid Arthritis - Neurontin 300mg 8. PLACIDO - Resolved 9. DM II - Resume Po anti diabetics on discharge 10. Hypercalcemia - Corrected ca ~11.4 - Holding fluids due to CHF - Possible due to abdominal malignancy, elevated CEA, pt initial bx inconclusive , will need outpt GI follow up 11. s/p fall - Head CT negative Dispo: - DC [facility], daughter aware of plan pt agrees as well - Meds as above - PCP, GI and cardiology follow up once DC from rehab Condition: Stable - Instructions Diet, Activity, Other Instructions: Please return to the ED for any new, persistent, or worsening symptoms. Follow up with your PCP when discharged from rehab facility Continue home medications as directed on home medication list Follow up with Pulmonary and cardiology in 1-2 weeks Continue steroid taper as directed Referrals: Tee Key MD [Staff Physician] - Ander Velasco MD [Staff Physician] - 3 Weeks Armaan Lemus MD [Staff Physician] - 3 Weeks (Follow up elevated CEA levels, continued mgmt after biopsy ) Disposition: LONG TERM FACILITY - Home Medications Comprehensive Discharge Medication List: Ambulatory Orders Albuterol Sulfate Inhaler - [Ventolin HFA Inhaler -] 2 inh PO Q4H PRN 07/18/17 Amlodipine Besylate 10 mg PO HS 07/18/17 Aspirin [Aspirin EC] 81 mg PO DAILY 07/18/17 Gabapentin [Neurontin] 300 mg PO HS 07/18/17 Glipizide 5 mg PO DAILY 07/18/17 Losartan/Hydrochlorothiazide [Losartan-Hctz 50-12.5 mg Tab] 1 each PO DAILY Metformin HCl 500 mg PO DAILY 07/18/17 Metoprolol Succinate [Toprol XL -] 100 mg PO DAILY 07/18/17 Omeprazole 40 mg PO DAILY 07/18/17 Polyethylene Glycol 3350 [Miralax 119 gm Btl -] 17 gm PO DAILY 07/18/17 Ranolazine [Ranexa] 500 mg PO BID 07/18/17 Risperidone [Risperdal -] 1 mg PO HS 07/18/17 Acetaminophen [Tylenol Arthritis] 650 mg PO Q8H PRN 07/25/17 Melatonin 10 mg PO HS 07/25/17 Fluticasone Propionate [Flovent Diskus] 2 inh IH DAILY 07/26/17 Ipratropium/Albuterol Sulfate [Combivent Respimat Inhal [place]] 2 puff IH BID Multivitamins [Multivit ([facility] Formulary)] 1 tab PO DAILY 08/23/17 Furosemide [Lasix -] 20 mg PO DAILY #30 tablet 08/29/17 Nicotine Patch [Nicoderm Patch -] 14 mg TD DAILY patch 08/29/17 Prednisone 10 mg PO DAILY #28 tablet 08/29/17 This patient is new to me today: No Emergency Visit: Yes ED Registration Date: 08/23/17 Care time: The patient presented to the Emergency Department on the above date and was hospitalized for further evaluation of their emergent condition. Critical Care patient: No - Discharge Referral Referred to [facility] Med [facility] No
== END 2017-08-29 15:53 | DRG 291 ==
LOC: JER 13:28 → JERBED 15:46 → JICU 19:15 → J4W 08-26 19:34 → J6S 08-28 11:03 → J4W 08-28 11:17 → J6S 08-28 12:08
PROVIDERS: ADMIT Internal Medicine; ATTEND Nurse Practitioner Acute Care
DX: I11.0 Hypertensive heart disease with heart failure (principal); J96.21 Acute and chronic respiratory failure with hypoxia; J96.22 Acute and chronic respiratory failure with hypercapnia; J18.9 Pneumonia, unspecified organism; J44.1 Chronic obstructive pulmonary disease with (acute) exacerbation; N17.9 Acute kidney failure, unspecified; I50.33 Acute on chronic diastolic (congestive) heart failure; E11.9 Type 2 diabetes mellitus without complications; I71.2 Thoracic aortic aneurysm, without rupture; E78.5 Hyperlipidemia, unspecified; Z99.81 Dependence on supplemental oxygen; M06.9 Rheumatoid arthritis, unspecified; Z79.84 Long term (current) use of oral hypoglycemic drugs; F17.210 Nicotine dependence, cigarettes, uncomplicated; F32.9 Major depressive disorder, single episode, unspecified; F03.90 Unspecified dementia, unspecified severity, without behavioral disturbance, psychotic disturbance, mood disturbance, and anxiety; Z86.73 Personal history of transient ischemic attack (TIA), and cerebral infarction without residual deficits; I45.10 Unspecified right bundle-branch block; I25.10 Atherosclerotic heart disease of native coronary artery without angina pectoris; E83.52 Hypercalcemia; E86.1 Hypovolemia; W18.30XA Fall on same level, unspecified, initial encounter; Y93.9 Activity, unspecified; Y92.230 Patient room in hospital as the place of occurrence of the external cause; Y99.8 Other external cause status
CPT/HCPCS: 36415; 36600; 70450-TC; 71010-TC; 80048; 80053; 81003; 81015; 82375; 82803; 83036; 83050; 83735; 83880; 84100; 84484; 85025; 85610; 85730; 87040; 87086; 93005; 93010; 93970-TC; 94640; 94660; 97116-GP; 97161-GP; 99284-25; J1644; J2794

== ENCOUNTER 2017-10-25 17:10 | Inpatient (IN) | payer OTHER ==
[2017-10-25 17:20] VITALS: BMI 29.9
--- NOTE | 2017-10-25 17:52 | PDOC ---
History of Present Illness - General Chief Complaint: Respiratory Stated Complaint: DIFFICULTY BREATHING - History of Present Illness Initial Comments: 72yo woman with PMH of COPD (2L O2 dependent), CAD (Stent placed 2012), chronic diastolic heart failure, CAD, DM, dementia, gastric mass with elevated CEA (no bx or tx currently), HTN, HLD, TIAs, depression, and dementia who presents with several days of rapidly worsening SOB in the context of gradual decline since her last discharge on 09/30. Since being home, the patient has had worsening dyspnea with dry cough. Per the daughter, who is the healthcare proxy and a nurse, the patient was desatting to low 80's despite increasing home O2 and minimal improvement with home duo nebulizer treatment. She beleives this was exacerbated by her cessation of home steroid taper. Admitted here 08/23 for COPD exacerbation and discharged to rehab on 08/29. She had a similar decline after rehab and was then readmitted from 09/28/17-09/30/17 presenting for acute on chronic hypoxic hypercapneic respiratory failure thought to be 2/2 COPD exacerbation in the setting of smoking. Discharged with steroid taper but started to decline as taper was resolving. Denies fevers, chills, nausea, vomiting, chest pain/pressure, urinary symptoms, or gi symptoms. 10/25/17 17:53 Past History - Past Medical History Allergies/Adverse Reactions: Allergies Allergy/AdvReac Type Severity Reaction Status Date / Time No Known Allergies Allergy Verified 10/25/17 17:15 Home Medications: Ambulatory Orders Albuterol Sulfate Inhaler - [Ventolin Hfa Inhaler -] 2 puff IH PRN PRN 10/25/17 Amlodipine Besylate [Norvasc -] 10 mg PO HS 10/25/17 Aspirin [ASA -] 81 mg PO DAILY 10/25/17 Fluticasone Propionate 32 gm NS DAILY 10/25/17 Gabapentin [Neurontin] 300 mg PO HS 10/25/17 Glipizide [Glipizide ER] 5 mg PO DAILY 10/25/17 Ipratropium/Albuterol Sulfate [Combivent Respimat Inhal [place]] 4 gm IH BID 10/25 Metformin HCl 500 mg PO DAILY 10/25/17 Metoprolol Succinate [Toprol Xl] 100 mg PO DAILY 10/25/17 Multivitamin [One Daily] 1 each PO DAILY 10/25/17 Omeprazole 40 mg PO DAILY 10/25/17 Ranolazine [Ranexa] 500 mg PO BID 10/25/17 Risperidone [Risperdal] 1 mg PO HS 10/25/17 Salmeterol/Fluticasone [Advair 100Mcg/50Mcg -] 1 inh PO BID 10/25/17 Anemia: No Asthma: No Cancer: No Cardiac Disorders: No CVA: Yes (TIAs) COPD: Yes (PNEUMONIA) CHF: No Dementia: Yes (?? [facility]ED FOR [facility] 07/14) Diabetes: Yes (NIDDM) GI Disorders: Yes (Rectal bleed 2013) Disorders: No HTN: Yes Hypercholesterolemia: Yes Liver Disease: Yes (FATTY) Seizures: No Thyroid Disease: No - Surgical History Abdominal Surgery: Yes (ASCENDING AORTIC ANEURYSM) Appendectomy: No Cardiac Surgery: No Cholecystectomy: Yes GI Surgery: Yes (bleeding ulcers) Lung Surgery: No Neurologic Surgery: No Orthopedic Surgery: Yes (ACL repair) - Immunization History Immunization Up to Date: Yes - Suicide/Smoking/Psychosocial Hx Smoking Status: Yes Smoking History: Current some day smoker Have you smoked in the past 12 months: Yes Number of Cigarettes Smoked Daily: 1 If you are a former smoker, when did you quit?: 6 months Cigars Per Day: 0 Information on smoking cessation initiated: No 'Breaking Loose' booklet given: 12/17/14 Hx Alcohol Use: No Drug/Substance Use Hx: No Substance Use Type: None Hx Substance Use Treatment: No Review of Systems - Review of Systems Constitutional: No: Chills, Fever, Loss of Appetite HEENTM: No: Blurred Vision Respiratory: Yes: Cough, Shortness of Breath. No: Wheezing, Productive cough, Hemoptysis Cardiac (ROS): Yes: Edema (1+ pitting edema bilateral LEs to the knees). No: Chest Pain ABD/GI: No: Constipated, Diarrhea, Nausea, Vomiting : No: Burning, Dysuria *Physical Exam - Vital Signs Last Vital Signs Temp Pulse Resp BP Pulse Ox 98.7 F 84 26 H 150/85 95 10/25/17 17:12 10/25/17 17:12 10/25/17 17:12 10/25/17 17:12 10/25/17 17:12 - Physical Exam General Appearance: Yes: Nourished, Appropriately Dressed, Apparent Distress, Mild Distress HEENT: positive: EOMI, MEHUL, Normal ENT Inspection, Pharynx Normal. negative: Muffled/Hoarse voice, Pharyngeal Erythema Neck: positive: Trachea midline, Normal Thyroid, Supple. negative: Tender, Rigid Respiratory/Chest: positive: Respiratory Distress, Labored Respiration (Mildly labored respirations), Rapid RR (Slightly elevated RR), Crackles (Bilateral lung louie from mid lung to bases.), Rales, Other (Moving air adequately but delayed expiratory phase). negative: Chest Tender, Lungs Clear, Normal Breath Sounds, Accessory Muscle Use Cardiovascular: positive: Regular Rhythm, Regular Rate, Edema (Bilateral 1+ pitting edema to the knees) Gastrointestinal/Abdominal: positive: Normal Bowel Sounds, Flat, Soft. negative : Tender Extremity: positive: Swelling. negative: Normal Inspection Integumentary: positive: Normal Color, Dry, Warm Neurologic: positive: Alert. negative: Fully Oriented (AOx1) ED Treatment Course - LABORATORY CBC & Chemistry Diagram: 10/29/17 06:00 10/29/17 06:00 Medical Decision Making - Medical Decision Making 72 year old female with PMH of COPD and CHF with recent admissions for both within the last two months presenting with hypoxic respiratory failure with either of these aforementioned pathologies as the acutely exacerbated driving mechanisms. Her daughter at bedside (registered nurse) believes that this is related to her steroid taper and that she started to decline as her steroids were tapered. Although her pulmonary exam is significant for crackles she did improve with a dose of nebs in the ED . We deferred steroids and Lasix to the medicine team as labs were pending and it wasn't a definitive COPD exacerbation.. 10/28/17 12:55 *DC/Admit/Observation/Transfer Diagnosis at time of Disposition: CHF (congestive heart failure), Respiration abnormal - Discharge Dispostion Condition at time of disposition: Stable - Referrals - Patient Instructions - Post Discharge Activity
--- NOTE | 2017-10-25 18:34 | PDOC ---
Attending Attestation - Resident Resident Name: FrediChifitzcristiane - ED Attending Attestation I have performed the following: I have examined & evaluated the patient, The case was reviewed & discussed with the resident, I agree w/resident's findings & plan, Exceptions are as noted - HPI HPI: 10/25/17 18:32 72y hx of cad (stent in 13), dm, htn, chf, copd (2L of O2 at home), presents with a complaint of sob and facial an LE edema. Pt had recent admission for COPD exacerbation, since being home she has had worsening sob, cough, gallo w/o fever/chills. on exam pt in no acute distress +edema - Physicial Exam PE: 10/25/17 20:33 pulm: +wheezing/rales b/l general: +facial edema, +b/l pitting edma +1 card: no murmers, rrr abd: soft/nontender - Medical Decision Making 10/25/17 20:38 chf vs copd awaiting lab work, cxr pt given nebs, steroids will reassess, if +increasd o2 requirement or persistent dyspneic will admit Heart Score/ECG Review - ECG Impressions Comment:: 10/25/17 20:39 ekg performed at 17:46 NSR RBBB LAD rate of 83
[2017-10-25] MEDS ORDERED: ALBUTEROL SO4 2.5/IPRATROPIUM 0.5 INH SOL 3 ML VIAL.NEB. NEB ONE ×2 (18:38→19:16)
[2017-10-25 19:43] LABS: BASOPHIL 0.6 % (0-2.0); EOSINOPHIL 1.6 % (0-4.5); MCH 31.2 pg (25.7-33.7); MCHC 32.4 g/dl (32.0-36.0); MEAN CELL VOLUME 96.4 fl (80-96); MEAN PLT VOLUME 9.4 fl (7.5-11.1); NEUTROPHILS 71.3 % (42.8-82.8); PLATELET COUNT 226 K/MM3 (134-434)
[2017-10-25] MEDS: RANOLAZINE E.R. 500 MG TABLET (FP) PO SCH (21:00)
[2017-10-25] MEDS: MELATONIN 5 MG TABLETS PO SCH (21:00)
[2017-10-25 21:29] LABS: VENOUS BLOOD GAS HCO3 35.9 meq/L (19-25); VENOUS PH 7.36 (7.32-7.42)
[2017-10-25] MEDS ORDERED: methylPREDNISolone NA SUCC 125 MG/2 ML VIAL IVPUSH ONE (21:44)
[2017-10-25] MEDS ORDERED: amLODIPine BESYLATE 10 MG TABLET (FP) PO ONE (22:06)
[2017-10-25] MEDS ORDERED: risperiDONE 1 MG TABLET (FP) PO ONE (22:07)
[2017-10-25] MEDS ORDERED: GABAPENTIN 300 MG CAPSULE (FP) PO ONE (22:07)
[2017-10-25] MEDS ORDERED: methylPREDNISolone NA SUCC 125 MG/2 ML VIAL ONE (22:10)
[2017-10-25] MEDS ORDERED: amLODIPine BESYLATE 5 MG TABLET (FP) ONE (22:10)
[2017-10-25] MEDS ORDERED: risperiDONE 0.5 MG TABLET (FP) ONE (22:10)
[2017-10-25] MEDS ORDERED: GABAPENTIN 100 MG CAPSULE (FP) ONE ×2 (22:10→22:11)
[2017-10-25 22:21] LABS: ALBUMIN 3.1 g/dl (3.4-5.0); ALK PHOS 91 U/L (45-117); ANION GAP 5 (8-16); BILIRUBIN,TOTAL 0.4 mg/dL (0.2-1.0); CALCIUM 10.1 mg/dL (8.5-10.1); CO2 33 mmol/L (21-32); CPK 37 IU/L (26-192); CREATININE 0.8 mg/dL (0.55-1.02); GLUCOSE,RANDOM 113 mg/dL (74-106); MAGNESIUM 2.1 mg/dL (1.8-2.4); SGOT/AST 9 U/L (15-37); SGPT/ALT 19 U/L (12-78); TOT PROT 6.7 g/dl (6.4-8.2); TROPONIN I < 0.02 ng/ml (0.00-0.05)
--- NOTE | 2017-10-25 23:03 | PDOC ---
History of Present Illness - General Chief Complaint: Respiratory Stated Complaint: DIFFICULTY BREATHING Time Seen by Provider: 10/25/17 18:06 Past History - Past Medical History Allergies/Adverse Reactions: Allergies Allergy/AdvReac Type Severity Reaction Status Date / Time No Known Allergies Allergy Verified 10/25/17 17:15 Home Medications: Ambulatory Orders Albuterol Sulfate Inhaler - [Ventolin Hfa Inhaler -] 2 puff IH PRN PRN 10/25/17 Amlodipine Besylate [Norvasc -] 10 mg PO DAILY 10/25/17 Aspirin [ASA -] 81 mg PO DAILY 10/25/17 Fluticasone Propionate 32 gm NS DAILY 10/25/17 Gabapentin [Neurontin] 300 mg PO DAILY 10/25/17 Glipizide [Glipizide ER] 5 mg PO DAILY 10/25/17 Ipratropium/Albuterol Sulfate [Combivent Respimat Inhal [place]] 4 gm IH BID 10/25 Metformin HCl 500 mg PO DAILY 10/25/17 Metoprolol Succinate [Toprol Xl] 100 mg PO DAILY 10/25/17 Multivitamin [One Daily] 1 each PO DAILY 10/25/17 Omeprazole 40 mg PO DAILY 10/25/17 Ranolazine [Ranexa] 500 mg PO BID 10/25/17 Risperidone [Risperdal] 1 mg PO HS 10/25/17 Salmeterol/Fluticasone [Advair 100Mcg/50Mcg -] 1 inh PO BID 10/25/17 Anemia: No Asthma: No Cancer: No Cardiac Disorders: No CVA: Yes (TIAs) COPD: Yes (PNEUMONIA) CHF: No Dementia: Yes (?? [facility] 07/14) Diabetes: Yes (NIDDM) GI Disorders: Yes (Rectal bleed 2013) Disorders: No HTN: Yes Hypercholesterolemia: Yes Liver Disease: Yes (FATTY) Seizures: No Thyroid Disease: No - Surgical History Abdominal Surgery: Yes (ASCENDING AORTIC ANEURYSM) Appendectomy: No Cardiac Surgery: No Cholecystectomy: Yes GI Surgery: Yes (bleeding ulcers) Lung Surgery: No Neurologic Surgery: No Orthopedic Surgery: Yes (ACL repair) - Immunization History Immunization Up to Date: Yes - Suicide/Smoking/Psychosocial Hx Smoking Status: Yes Smoking History: Current some day smoker Have you smoked in the past 12 months: Yes Number of Cigarettes Smoked Daily: 1 If you are a former smoker, when did you quit?: 6 months Cigars Per Day: 0 Information on smoking cessation initiated: No 'Breaking Loose' booklet given: 12/17/14 Hx Alcohol Use: No Drug/Substance Use Hx: No Substance Use Type: None Hx Substance Use Treatment: No *Physical Exam - Vital Signs Last Vital Signs Temp Pulse Resp BP Pulse Ox 98.7 F 89 28 H 165/81 92 L 10/25/17 17:12 10/25/17 20:58 10/25/17 20:58 10/25/17 20:58 10/25/17 20:58 ED Treatment Course - LABORATORY CBC & Chemistry Diagram: 10/25/17 18:53 10/25/17 20:28 - ADDITIONAL ORDERS Additional order review: Laboratory Results 10/25/17 10/25/17 10/25/17 20:43 20:28 18:53 VBG pH 7.36 POC VBG pCO2 65.2 H* POC VBG pO2 49.2 H D Mixed VBG HCO3 35.9 H Sodium 141 Potassium 4.3 D Chloride 103 Carbon Dioxide 33 H Anion Gap 5 L BUN 16 D Creatinine 0.8 D Creat Clearance w eGFR > 60 Random Glucose 113 H D Calcium 10.1 Magnesium 2.1 D Total Bilirubin 0.4 D AST 9 L D ALT 19 D Alkaline Phosphatase 91 Creatine Kinase 37 Cancelled Troponin I < 0.02 Cancelled B-Natriuretic Peptide 467.85 H Total Protein 6.7 Albumin 3.1 L 10/25/17 18:53 VBG pH POC VBG pCO2 POC VBG pO2 Mixed VBG HCO3 Sodium Cancelled Potassium Cancelled Chloride Cancelled Carbon Dioxide Cancelled Anion Gap Cancelled BUN Cancelled Creatinine Cancelled Creat Clearance w eGFR Cancelled Random Glucose Cancelled Calcium Cancelled Magnesium Cancelled Total Bilirubin Cancelled AST Cancelled ALT Cancelled Alkaline Phosphatase Cancelled Creatine Kinase Troponin I B-Natriuretic Peptide Cancelled Total Protein Cancelled Albumin Cancelled 10/25/17 18:53 RBC 3.92 MCV 96.4 H MCHC 32.4 RDW 15.0 MPV 9.4 D Neutrophils % 71.3 D Lymphocytes % 20.1 D Monocytes % 6.4 D Eosinophils % 1.6 D Basophils % 0.6 - Medications Given in the ED: ED Medications Discontinued Medications Generic Name Dose Route Start Last Admin Trade Name Freq PRN Reason Stop Dose Admin Albuterol/Ipratropium 1 amp 10/25/17 18:38 10/25/17 19:18 Duoneb - NEB 10/25/17 18:39 1 amp ONCE ONE Administration Amlodipine Besylate 10 mg 10/25/17 22:06 10/25/17 22:29 Norvasc - PO 10/25/17 22:07 10 mg ONCE ONE Administration Gabapentin 300 mg 10/25/17 22:07 10/25/17 22:29 Neurontin - PO 10/25/17 22:08 300 mg ONCE ONE Administration Methylprednisolone Sodium Succinate 125 mg 10/25/17 21:44 10/25/17 22:29 Solu-Medrol - IVPUSH 10/25/17 21:45 125 mg ONCE ONE Administration Risperidone 1 mg 10/25/17 22:07 10/25/17 22:29 Risperdal - PO 10/25/17 22:08 1 mg ONCE ONE Administration *DC/Admit/Observation/Transfer Diagnosis at time of Disposition: CHF (congestive heart failure), Respiration abnormal - Discharge Dispostion Condition at time of disposition: Stable Admit: Yes - Referrals Referrals: Ramona Hill MD [Primary Care Provider] - - Patient Instructions - Post Discharge Activity
[2017-10-25] MEDS ORDERED: FUROSEMIDE 40 MG/4 ML INJECTABLE VIAL IVPUSH ONE (23:12)
--- NOTE | 2017-10-25 23:25 | HP ---
CHIEF COMPLAINT: Increasing shortness of breath PCP: Dr. Hill HISTORY OF PRESENT ILLNESS: 72yo F with history of COPD (on 2LNC baseline), CAD s/p stenting in 2012, chronic diastolic CHF, DM, HTN, dementia, HLD, previous TIA, and gastric mass with elevated CEA (not being treated/biopsied) and multiple recent hospitalization with most recent (09/28/17 - 09/30/17) for chronic hypoxic hypercapnic respiratory distress who is presenting to the ER with about for worsening SOB and facial edema for 2-3 days. Pt was noted to have increased work of breathing as her steroid taper finished from last admission. She admits to continued smoking, and will take off her home oxygen prior to smoking. Pt reports having a home duoneb treatment with no resolution of her increased SOB. Pt currently denies fever/chills, rhinorrhea, sinus pressure, sputum production , CP/discomfort, palpitations, dysuria, polyuria, and n/v/d/c. Pt notes having abdominal pain currently only because of receiving injections, but otherwise denies abdominal pain leading up to her ER course. ER course was notable for: (1) 4LNC placed on patient, Duoneb x1 administered, Solumedrol dose initiated, (2) BNP 467 (3) CXR - official read pending; by my read: left rotated patient with slight deviation of trachea to pt right, vascular congestion noted; in comparison to decreased blurring of the costophrenic angles, cardiomegaly noted. (4) Risperidol x1 given (5) Lasix 40mg IVP x1 administered Recent Travel: Denies Sick contacts: Denies PAST MEDICAL HISTORY: COPD (on 2LNC baseline) CAD s/p stenting in 2013 Chronic diastolic CHF DM HTN/HLD Dementia Previous TIA Gastric mass with elevated CEA (not being treated/biopsied) PAST SURGICAL HISTORY: Cholecystectomy, ACL repair, ascending thoracic aneurysm repair Social History: Smoking: Current smoker Alcohol: Denies Drugs: Denies Family History: Heart Disease noted in father, sister, and brother Allergies No Known Allergies Allergy (Verified 10/25/17 17:15) HOME MEDICATIONS: Home Medications Medication Instructions Recorded Albuterol Sulfate Inhaler - 2 puff IH PRN PRN 10/25/17 [Ventolin Hfa Inhaler -] Amlodipine Besylate [Norvasc -] 10 mg PO DAILY 10/25/17 Aspirin [ASA -] 81 mg PO DAILY 10/25/17 Fluticasone Propionate 32 gm NS DAILY 10/25/17 Gabapentin [Neurontin] 300 mg PO DAILY 10/25/17 Glipizide [Glipizide ER] 5 mg PO DAILY 10/25/17 Ipratropium/Albuterol Sulfate 4 gm IH BID 10/25/17 [Combivent Respimat Inhal [place]] Metformin HCl 500 mg PO DAILY 10/25/17 Metoprolol Succinate [Toprol Xl] 100 mg PO DAILY 10/25/17 Multivitamin [One Daily] 1 each PO DAILY 10/25/17 Omeprazole 40 mg PO DAILY 10/25/17 Ranolazine [Ranexa] 500 mg PO BID 10/25/17 Risperidone [Risperdal] 1 mg PO HS 10/25/17 Salmeterol/Fluticasone [Advair 1 inh PO BID 10/25/17 100Mcg/50Mcg -] REVIEW OF SYSTEMS CONSTITUTIONAL: Absent: fever, chills, diaphoresis, generalized weakness, malaise, loss of appetite, weight change HEENT: Absent: rhinorrhea, nasal congestion, throat pain, throat swelling, difficulty swallowing, mouth swelling, ear pain, eye pain, visual changes CARDIOVASCULAR: Absent: chest pain, syncope, palpitations, irregular heart rate, lightheadedness , peripheral edema RESPIRATORY: Present: Shortness of breath, increased dyspnea with exertion, wheezing Absent: cough, stridor, hemoptysis GASTROINTESTINAL: Absent: abdominal pain, abdominal distension, nausea, vomiting, diarrhea, constipation, melena, hematochezia GENITOURINARY: Absent: dysuria, frequency, urgency, hesitancy, hematuria, flank pain, genital pain MUSCULOSKELETAL: Absent: myalgia, arthralgia, joint swelling, back pain, neck pain SKIN: Absent: rash, itching, pallor HEMATOLOGIC/IMMUNOLOGIC: Absent: easy bleeding, easy bruising, lymphadenopathy, frequent infections ENDOCRINE: Absent: unexplained weight gain, unexplained weight loss, heat intolerance, cold intolerance NEUROLOGIC: Absent: headache, focal weakness or paresthesias, dizziness, unsteady gait, seizure, mental status changes, bladder or bowel incontinence PSYCHIATRIC: Absent: anxiety, depression, suicidal or homicidal ideation, hallucinations. PHYSICAL EXAMINATION Vital Signs - 24 hr 10/25/17 10/25/17 10/25/17 17:12 20:29 20:58 Temperature 98.7 F Pulse Rate 84 Pulse Rate [ 89 Apical] Respiratory 26 H 28 H Rate Blood Pressure 150/85 Blood Pressure 165/81 [Right Arm] O2 Sat by Pulse 95 95 92 L Oximetry (%) GENERAL: NAD, awake, alert, HEENT: Facial edema noted, EOMI, CANDY, no exudates or erythema noted in posterior oropharynx, moist mucous membranes, no JVD noted, no lymphadenopathy LUNGS: Tachypneic @28 RR. Increased expiratory phase with end-expiratory wheezes noted throughout. Slight bibasillar rales with R>L noted. No accessory muscle use. HEART: RRR, normal S1 with S2 splitting noted. 2/6 systolic ejection murmur noted ABDOMEN: Soft, nontender, nondistended, normoactive bowel sounds. No hepatomegaly. MUSCULOSKELETAL: No CVA tenderness. EXTREMITIES: 2+ DP pulses, trace non-pitting edema noted in ankles, no lesions noted on feet. NEUROLOGICAL: Cranial nerves II-XII intact. Alert PSYCHIATRIC: Cooperative. Good eye contact. Appropriate mood and affect. SKIN: Warm, no rashes or lesions noted Laboratory Results - last 24 hr 10/25/17 10/25/17 10/25/17 18:53 18:53 18:53 WBC 5.0 D RBC 3.92 Hgb 12.3 Hct 37.9 MCV 96.4 H MCH 31.2 MCHC 32.4 RDW 15.0 Plt Count 226 MPV 9.4 D Neutrophils % 71.3 D Lymphocytes % 20.1 D Monocytes % 6.4 D Eosinophils % 1.6 D Basophils % 0.6 VBG pH POC VBG pCO2 POC VBG pO2 Mixed VBG HCO3 Sodium Cancelled Potassium Cancelled Chloride Cancelled Carbon Dioxide Cancelled Anion Gap Cancelled BUN Cancelled Creatinine Cancelled Creat Clearance w eGFR Cancelled Random Glucose Cancelled Calcium Cancelled Magnesium Cancelled Total Bilirubin Cancelled AST Cancelled ALT Cancelled Alkaline Phosphatase Cancelled Creatine Kinase Cancelled Troponin I Cancelled B-Natriuretic Peptide Cancelled Total Protein Cancelled Albumin Cancelled 10/25/17 10/25/17 20:28 20:43 WBC RBC Hgb Hct MCV MCH MCHC RDW Plt Count MPV Neutrophils % Lymphocytes % Monocytes % Eosinophils % Basophils % VBG pH 7.36 POC VBG pCO2 65.2 H* POC VBG pO2 49.2 H D Mixed VBG HCO3 35.9 H Sodium 141 Potassium 4.3 D Chloride 103 Carbon Dioxide 33 H Anion Gap 5 L BUN 16 D Creatinine 0.8 D Creat Clearance w eGFR > 60 Random Glucose 113 H D Calcium 10.1 Magnesium 2.1 D Total Bilirubin 0.4 D AST 9 L D ALT 19 D Alkaline Phosphatase 91 Creatine Kinase 37 Troponin I < 0.02 B-Natriuretic Peptide 467.85 H Total Protein 6.7 Albumin 3.1 L ASSESSMENT/PLAN: 72yo F with recent hospitalizations and history of COPD, CAD s/p stenting, chronic diastolic chf, dementia, DM, and multiple comorbid conditions seen for increased difficulty breathing. Pt reported down to 80% sat at home with no response to increase in O2 and home duoneb. Per medical records pt has smoked since being home from last discharge. 1) Acute hypercapnic respiratory distress 2/2 COPD exacerbation --Not likely infectious process, but cannot r/o; most likely secondary to recent smoking once again --Duonebs q6h colin --Albuterol inh q4h prn for SOB inbetween duoneb treatments if needed --Continue 4LNc maintain o2>90 --ABG ordered; if worsening CO2 retention will place on BiPap --Solumedrol 60mg BID --Zithromax 500mg one-time dose --Will repeat CXR in AM --Pulmonology consulted 2) CAD/chronic diastolic CHF --Repeat ekg showing NSR@88bpm with a complete RBBB, T-wave inversions noted V2-V5, and left atrial enlargement; QTc 445 --Continue ASA 81mg --Hlding beta-blockade due to respiratory status for tonight; will sign-out to day team for reassessment --Continue Ranexa BID --Cardiology consulted --Troponin negative x1 3) DM --ISS coverage ACHS --BGM ACHS --Most likely will need more coverage, however want to see baseline with ISS coverage 4) Gastric Mass --Previous charting shows elevated CEA --Per chart pt does not want treatment or biopsy as of now --GI was consulted in ED 5) HTN --Home Norvasc 10mg qDaily continued 6) GERD --Home omeprazole continued FEN: Fluids: AVOID Electrolyte abnormalities: None currently Nutrition: Will make NPO for no due to respiratory distress and may need BiPap PPX DVT - Heparin 5000U SQ TID GI - Home omeprazole continued as is Dispo: Admit tele Case discussed with Dr. Ericka Linder, DO - Internal Medicine PGY-1 Visit type - Emergency Visit Emergency Visit: Yes ED Registration Date: 10/25/17 Care time: The patient presented to the Emergency Department on the above date and was hospitalized for further evaluation of their emergent condition. - New Patient This patient is new to me today: Yes Date on this admission: 10/26/17 - Critical Care Critical Care patient: No
[2017-10-25] MEDS ORDERED: FUROSEMIDE 40 MG/4 ML INJECTABLE VIAL ONE (23:41)
[2017-10-25] MEDS ORDERED: ALBUTEROL SO4 2.5/IPRATROPIUM 0.5 INH SOL 3 ML VIAL.NEB. NEB SCH (23:53)
[2017-10-25] MEDS ORDERED: ALBUTEROL SO4 0.083% IH SOL 2.5 MG/3 ML VIAL.NEB. NEB PRN (23:54)
[2017-10-26] MEDS ORDERED: ALBUTEROL SO4 2.5/IPRATROPIUM 0.5 INH SOL 3 ML VIAL.NEB. NEB SCH
[2017-10-26] MEDS ORDERED: AZITHROMYCIN 250 MG TABLET PO ONE (00:02)
[2017-10-26] MEDS: HEPARIN NA (PORCINE) 5,000 UNITS/ML 1ML VIAL SQ SCH ×3 (00:10→22:11)
[2017-10-26] MEDS ORDERED: HEPARIN NA (PORCINE) 5,000 UNITS/ML 1ML VIAL ONE (00:13)
[2017-10-26] MEDS ORDERED: INSULIN SLIDING SCALE (NOVOLOG) 1 VIAL SQ SCH (00:30)
--- NOTE | 2017-10-26 01:09 | PN ---
Teaching Attending Note Name of Resident: Jone Mejia ATTENDING PHYSICIAN STATEMENT I saw and evaluated the patient. I reviewed the resident's note and discussed the case with the resident. I agree with the resident's findings and plan as documented. SUBJECTIVE: 72 M with pmhx of COPD( 2 L NC) CAD s/p stents, Chronic Diastolic HF, HTN, Dementia, TIA, stomach mass, ascending AA, DM II,, with recent hospitalization for COPD Exacerbation, who presents with shortness of breath. Mild cough or sputum production. No fevers or chills. She is a current smoker. No cp or pressure. OBJECTIVE: Physical: VS: Vital Signs Period Temp Pulse Resp BP Sys/Cox Pulse Ox Last 24 Hr 98.7 F 79-89 18-28 131-165/71-85 92-99 GEN: Elderly lady in resting in bed, able to speak full sentences HEENT: NCAT, PERRL, throat without erythema or exudates CARD: RRR S1, S2 RESP: Bilateral Exp. Wheeze ABD: BSx4, NTD to palpation EXT: - C/C/E CBCD WBC 5.0 K/mm3 (4.0-10.0) D 10/25/17 18:53 RBC 3.92 M/mm3 (3.60-5.2) 10/25/17 18:53 Hgb 12.3 GM/dL (10.7-15.3) 10/25/17 18:53 Hct 37.9 % (32.4-45.2) 10/25/17 18:53 MCV 96.4 fl (80-96) H 10/25/17 18:53 MCHC 32.4 g/dl (32.0-36.0) 10/25/17 18:53 RDW 15.0 % (11.6-15.6) 10/25/17 18:53 Plt Count 226 K/MM3 (134-434) 10/25/17 18:53 MPV 9.4 fl (7.5-11.1) D 10/25/17 18:53 CMP Sodium 141 mmol/L (136-145) 10/25/17 20:28 Potassium 4.3 mmol/L (3.5-5.1) D 10/25/17 20:28 Chloride 103 mmol/L (98-107) 10/25/17 20:28 Carbon Dioxide 33 mmol/L (21-32) H 10/25/17 20:28 Anion Gap 5 (8-16) L 10/25/17 20:28 BUN 16 mg/dL (7-18) D 10/25/17 20:28 Creatinine 0.8 mg/dL (0.55-1.02) D 10/25/17 20:28 Creat Clearance w eGFR > 60 (>60) 10/25/17 20: Random Glucose 113 mg/dL (74-106) H D 10/25/17 20:28 Calcium 10.1 mg/dL (8.5-10.1) 10/25/17 20: Total Bilirubin 0.4 mg/dL (0.2-1.0) D 10/25/17 20: AST 9 U/L (15-37) L D 10/25/17 20: ALT 19 U/L (12-78) D 10/25/17 20: Alkaline Phosphatase 91 U/L (45-117) 10/25/17 20:28 Total Protein 6.7 g/dl (6.4-8.2) 10/25/17 20: Albumin 3.1 g/dl (3.4-5.0) L 10/25/17 20:28 CARDIAC ENZYMES Creatine Kinase 37 IU/L (26-192) 10/25/17 20:28 Troponin I < 0.02 ng/ml (0.00-0.05) 10/25/17 20:28 EKG: NSR, RBBB, TWI lateral leads CXR- Midl congestion, small bilateral plueral effusions. ASSESSMENT AND PLAN: 72 M with pmhx of COPD( 2 L NC) CAD s/p stents, Chronic Diastolic HF, HTN, Dementia, TIA, stomach mass, with shortness of breath being admitted for COPD Exacerbation. 1.) Acute Hypercapnic Respiratory Failure - BIPAP - Repeat ABG in Am 2.) Acute COPD Excarbation - Duo nebs - Solumedrol - 02>90% - Advised smoking cessation 3.) Diastolic CHF - Does not look clinically overloaded - Cxr with mild congestion/effusions - C/W lasix - Trend Trop/Ekg 4.) CAD - C/W home meds 5.) DM - FS - RAISS 6.) Dvt Ppx - Heparin 5000 q8 7.) Duodenal Mass - GI consult placed in ED Place in Med-sx Rest as per resident note
[2017-10-26 03:34] LABS: ARTERIAL BLOOD GAS pH 7.36 (7.35-7.45)
[2017-10-26 03:35] LABS: ALLENS TEST POSITIVE; ART PUNCT SITE LEFT RADIAL; ARTERIAL BLD GAS O2 SATURATION 86.3 % (90-98.9); ARTERIAL BLOOD GAS BASE EXCESS 9.2 meq/l (-2-2); LPM/O2% 3L; PT. ON O2? YES; TYPE OF O2 NASAL
[2017-10-26 03:36] LABS: ARTERIAL BLOOD GAS HCO3 36.6 meq/L (22-26); ARTERIAL BLOOD GAS PO2 55.1 mmHg (70-100)
[2017-10-26] MEDS: ALBUTEROL SO4 2.5/IPRATROPIUM 0.5 INH SOL 3 ML VIAL.NEB. NEB SCH ×3 (06:41→19:04)
[2017-10-26] MEDS: INSULIN SLIDING SCALE (NOVOLOG) 1 VIAL SQ SCH ×5 (07:42→22:19)
[2017-10-26 07:49] LABS: ARTERIAL BLD GAS O2 SATURATION 90.4 % (90-98.9); ARTERIAL BLOOD GAS BASE EXCESS 9.7 meq/l (-2-2); ARTERIAL BLOOD GAS PO2 61.5 mmHg (70-100); ARTERIAL BLOOD GAS pH 7.36 (7.35-7.45)
[2017-10-26 07:56] LABS: ALLENS TEST POSITIVE
[2017-10-26 07:57] LABS: ART PUNCT SITE RIGHT RADIAL; LPM/O2% 5; PT. ON O2? YES; TYPE OF O2 NASAL CANNULA
--- NOTE | 2017-10-26 08:25 | PN ---
Physical Exam: SUBJECTIVE: Patient seen and examined by me this AM. - Endorses improved breathing, resting comfortably with daughter at bedside. Per daughter, patient has been progressively declining in functional status since finishing steroid taper from last admission. Still continues to smoke, even while on home O2. - Pt denies any OLIVO/dizziness, fever/chills, CP, palpitations, N/V, dysuria, diarrhea, productive cough. Endorses mild chronic cough at baseline, mild SOB OBJECTIVE: Vital Signs Intake & Output 10/23/17 10/24/17 10/25/17 10/26/17 23:59 23:59 23:59 23:59 Weight 81.647 kg Period Temp Pulse Resp BP Sys/Cox Pulse Ox Last 24 Hr 97.2 F-98.7 F 79-89 18-28 125-165/71-85 92-99 GENERAL: A&Ox3, in no acute distress. HEAD: NCAT EYES: PERRL, extraocular movements intact, sclera anicteric, conjunctiva clear. No ptosis. ENT: Ears normal, nares patent, oropharynx clear without exudates, moist mucous membranes. NECK: Trachea midline, supple. JVD noted. LUNGS: Bibasilar crackles, more prominent at R lung base. Trace wheezing noted in upper lung louie. No accessory muscle use. HEART: 3/6 systolic ejection murmur heard best at RUSb and LUSB. Regular rate and rhythm, S1, S2 without murmur, rub or gallop. ABDOMEN: Soft, nontender, nondistended, normoactive bowel sounds, no guarding, no rebound Upper EXTREMITIES: 2+ pulses, warm, well-perfused, no edema. Lower extremities: 2+ DP, PT pulses BL. 2+ pitting edema bilaterally. NEUROLOGICAL: Cranial nerves II through XII grossly intact. Normal speech, gait not observed. Psych: Tangential speech, pleasant, normal affect Laboratory Results - last 24 hr CBC, BMP 10/25/17 18:53 10/25/17 20:28 10/25/17 10/25/17 10/25/17 18:53 18:53 18:53 WBC 5.0 D RBC 3.92 Hgb 12.3 Hct 37.9 MCV 96.4 H MCH 31.2 MCHC 32.4 RDW 15.0 Plt Count 226 MPV 9.4 D Neutrophils % 71.3 D Lymphocytes % 20.1 D Monocytes % 6.4 D Eosinophils % 1.6 D Basophils % 0.6 Puncture Site ABG pH ABG pCO2 at Pt Temp ABG pO2 at Pt Temp ABG HCO3 ABG O2 Sat (Measured) ABG O2 Content ABG Base Excess Reji Test VBG pH POC VBG pCO2 POC VBG pO2 Mixed VBG HCO3 O2 Delivery Device Oxygen Flow Rate PEEP Sodium Cancelled Potassium Cancelled Chloride Cancelled Carbon Dioxide Cancelled Anion Gap Cancelled BUN Cancelled Creatinine Cancelled Creat Clearance w eGFR Cancelled Random Glucose Cancelled Calcium Cancelled Magnesium Cancelled Total Bilirubin Cancelled AST Cancelled ALT Cancelled Alkaline Phosphatase Cancelled Creatine Kinase Cancelled Troponin I Cancelled B-Natriuretic Peptide Cancelled Total Protein Cancelled Albumin Cancelled 10/25/17 10/25/17 10/26/17 20:28 20:43 03:30 WBC RBC Hgb Hct MCV MCH MCHC RDW Plt Count MPV Neutrophils % Lymphocytes % Monocytes % Eosinophils % Basophils % Puncture Site Left radial ABG pH 7.36 ABG pCO2 at Pt Temp 67.1 H* D ABG pO2 at Pt Temp 55.1 L ABG HCO3 36.6 H ABG O2 Sat (Measured) 86.3 L ABG O2 Content 14.3 L ABG Base Excess 9.2 H Reji Test Positive VBG pH 7.36 POC VBG pCO2 65.2 H* POC VBG pO2 49.2 H D Mixed VBG HCO3 35.9 H O2 Delivery Device Nasal Oxygen Flow Rate 3l PEEP 0.0 Sodium 141 Potassium 4.3 D Chloride 103 Carbon Dioxide 33 H Anion Gap 5 L BUN 16 D Creatinine 0.8 D Creat Clearance w eGFR > 60 Random Glucose 113 H D Calcium 10.1 Magnesium 2.1 D Total Bilirubin 0.4 D AST 9 L D ALT 19 D Alkaline Phosphatase 91 Creatine Kinase 37 Troponin I < 0.02 B-Natriuretic Peptide 467.85 H Total Protein 6.7 Albumin 3.1 L 10/26/17 07:33 WBC RBC Hgb Hct MCV MCH MCHC RDW Plt Count MPV Neutrophils % Lymphocytes % Monocytes % Eosinophils % Basophils % Puncture Site Right radial ABG pH 7.36 ABG pCO2 at Pt Temp 67.0 H* ABG pO2 at Pt Temp 61.5 L ABG HCO3 37.0 H ABG O2 Sat (Measured) 90.4 ABG O2 Content 14.6 L ABG Base Excess 9.7 H Reji Test Positive VBG pH POC VBG pCO2 POC VBG pO2 Mixed VBG HCO3 O2 Delivery Device Nasal cannula Oxygen Flow Rate 5 PEEP Sodium Potassium Chloride Carbon Dioxide Anion Gap BUN Creatinine Creat Clearance w eGFR Random Glucose Calcium Magnesium Total Bilirubin AST ALT Alkaline Phosphatase Creatine Kinase Troponin I B-Natriuretic Peptide Total Protein Albumin Active Medications Generic Name Dose Route Start Last Admin Trade Name Freq PRN Reason Stop Dose Admin Albuterol Sulfate 1 amp 10/25/17 23:54 Ventolin 0.083% Nebulizer Soln - NEB Q4H PRN SHORT OF BREATH/WHEEZING Albuterol/Ipratropium 1 amp 10/26/17 05:28 10/26/17 06:41 Duoneb - NEB Not Given QIDR IVANIA Amlodipine Besylate 10 mg 10/26/17 10:00 Norvasc - PO DAILY IVANIA Aspirin 81 mg 10/26/17 10:00 Asa - PO DAILY IVANIA Gabapentin 300 mg 10/26/17 10:00 Neurontin - PO DAILY IVANIA Heparin Sodium (Porcine) 5,000 unit 10/25/17 23:45 10/26/17 00:10 Heparin - SQ 5,000 unit BID IVANIA Administration Insulin Aspart 1 vial 10/26/17 06:00 10/26/17 07:42 Novolog Vial Sliding Scale - SQ 4 units Q4HPO IVANIA Administration Protocol Melatonin 10 mg 10/25/17 22:15 10/25/17 21:00 Melatonin PO 10 mg HS IVANIA Administration Methylprednisolone Sodium Succinate 60 mg 10/26/17 10:00 Solu-Medrol - IVPUSH BID IVANIA Nicotine 7 mg 10/26/17 10:00 Nicoderm Patch - TD DAILY IVANIA Pantoprazole Sodium 40 mg 10/26/17 10:00 Protonix - PO DAILY IVANIA Ranolazine 500 mg 10/25/17 22:15 10/25/17 21:00 Ranexa - PO 500 mg BID IVANIA Administration No pending micro CXR 10/26 - BL Pleural effusions. L compressive ateclectasis EKG 10/25 - RBBB. Extreme R axis deviation. TWI in v1-v3, v6. ASSESSMENT/PLAN: 72 yo woman w/ pmh of COPD, CAD (stents in 2012), diastolic CHF, HTN, DM,, dementia, who presented to ED with progressive increased WOB/SOB after >1 week of finishing steroid taper, unresponsive to home O2/duoneb tx, satting in low 80s at home with hx of multiple admissions for COPD/CHF exacerbations. #Acute hypoxic hypercapneic respiratory failure - AM ABG 7.36/67/61/37, minimal change on 5L O2. SOB improved since admission - O2 Tx. Maintain O2 >88%. Bipap at night. - If increasingly somnolent, hypoxic during day, escalate to BiPap and send ABG - Decreased Solumedrol 60 mg to 40mg BID - Duonebs q6h, q4h PRN - Symbicort BID - Zithromax 500mg daily for 3 days - Pulmonology consulted. Recs appreciated - No cultures sent - Smoking cessation #Diastolic CHF - BNP 467 on admission. ECHO 06/14/2017 - grossly normal, EF 70%. - Resume Toprol xl 100mg daily, Hyzaar 1 tab daily per cards - Lasix 20mg PO daily per cardiology - Ranexa BID - Cardiology consulted. Recs appreciated. - Strict Is and Os #CAD - EKG w/ RBBB, TWIs V1-3,V6, NSR. Prior stents in 2012 - ASA 81mg - Continue BB, hyzaar - Trop neg x1 (0.02) - cardiology following #DM - BGM ACHS - ISS - Gabapentin 300mg for diabetic neuropathy #HTN -Continue home norvasc 10mg daily. Possible switch to MARIN/ARB tomorrow - Check Cr in AM #Gastric mass - Pt refusing treatment/biopsy. - GI consulted. Per Dr. Malone, daughter wishes for comfort care only. No procedures - Prior elevated CEA #GERD -PPI #nicotine dependence - Nicoderm patch - Cement Block Maker on smoking cessation #PPX Heparin subQ FEN: Fluids: Limit PO intake Electrolytes: Daily BMPs, monitor BUN/Cr Nutrition: Diabetic diet Plan discussed with attending, Dr. Fred Gil, PGY1 Visit type - Emergency Visit Emergency Visit: Yes ED Registration Date: 10/25/17 Care time: The patient presented to the Emergency Department on the above date and was hospitalized for further evaluation of their emergent condition. - New Patient This patient is new to me today: Yes Date on this admission: 10/26/17 - Critical Care Critical Care patient: No
[2017-10-26] MEDS ORDERED: RANOLAZINE E.R. 500 MG TABLET (FP) PO SCH (10:00)
[2017-10-26] MEDS ORDERED: amLODIPine BESYLATE 10 MG TABLET (FP) PO SCH (10:00)
[2017-10-26] MEDS ORDERED: GABAPENTIN 300 MG CAPSULE (FP) PO SCH (10:00)
[2017-10-26] MEDS ORDERED: methylPREDNISolone NA SUCC 40 MG/1 ML VIAL IVPUSH SCH ×2 (10:00)
[2017-10-26] MEDS: RANOLAZINE E.R. 500 MG TABLET (FP) PO SCH ×2 (12:22→22:09)
[2017-10-26] MEDS: PANTOPRAZOLE 40 MG TABLET (FP) PO SCH (12:22)
[2017-10-26] MEDS: ASPIRIN 81 MG CHEWABLE TABLETS PO SCH (12:23)
--- NOTE | 2017-10-26 13:01 | EKG ---
Test Reason : Blood Pressure : / mmHG Vent. Rate : 088 BPM Atrial Rate : 088 BPM P-R Int : 142 ms QRS Dur : 138 ms QT Int : 368 ms P-R-T Axes : 069 234 023 degrees QTc Int : 445 ms NORMAL SINUS RHYTHM POSSIBLE LEFT ATRIAL ENLARGEMENT RIGHT BUNDLE BRANCH BLOCK ABNORMAL ECG WHEN COMPARED WITH ECG OF 25-OCT-2017 17:46, PREVIOUS ECG HAS UNDETERMINED RHYTHM, NEEDS REVIEW CRITERIA FOR INFERIOR INFARCT ARE NO LONGER PRESENT QT HAS SHORTENED Confirmed by NEVIN ANN MD ([id number]) on 10/26/2017 1:01:34 PM Referred By: Confirmed By:NEVIN ANN MD
--- NOTE | 2017-10-26 13:16 | CON.CARD ---
Consult Consult Specialty:: Cardiology Referred by:: Ramona Hill MD Reason for Consultation:: Dyspnea - History of Present Illness Chief Complaint: Dyspnea History of Present Illness: Patient is a 72 year old female with underlying history of coronary artery disease, angina pectoris, hypertension, type 2 diabetes mellitus, COPD with history of exacerbation and rheumatoid arthritis, ascending aortic aneurysm, tobacco abuse who presents with increase in shortness of breath. She was recently hospitalized with COPD exacerbation and acute on chronic diastolic heart failure. She continues to smoke which exacerbated shortness of breath. She denies chest pain or palpitations. She denies paroxysmal nocturnal dyspnea or orthopnea. She denies fever or chills. She denies headache or lightheadedness. 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: Yes: Dementia Cardio/Vascular: Yes: CAD, CHF, HTN Pulmonary: Yes: COPD, Sleep Apnea Renal/: Yes: Renal Inusuff ...: No Rheumatology: Yes: Rheumatoid Arthritis Endocrine: Yes: Diabetes Mellitus - Past Surgical History Past Surgical History: Yes: Hysterectomy, Appendectomy, Cholecystectomy - Alcohol/Substance Use Hx Alcohol Use: No History of Substance Use: reports: None - Smoking History Smoking history: Former smoker Have you smoked in the past 12 months: Yes Aproximately how many cigarettes per day: 1 If you are a former smoker, when did you quit?: 1 month ago - Social History Usual Living Arrangement: With Child ADL: Family Assistance History of Recent Travel: No Home Medications - Allergies Allergies/Adverse Reactions: Allergies Allergy/AdvReac Type Severity Reaction Status Date / Time No Known Allergies Allergy Verified 10/25/17 17:15 - Home Medications Home Medications: Ambulatory Orders Albuterol Sulfate Inhaler - [Ventolin Hfa Inhaler -] 2 puff IH PRN PRN 10/25/17 Amlodipine Besylate [Norvasc -] 10 mg PO DAILY 10/25/17 Aspirin [ASA -] 81 mg PO DAILY 10/25/17 Fluticasone Propionate 32 gm NS DAILY 10/25/17 Gabapentin [Neurontin] 300 mg PO DAILY 10/25/17 Glipizide [Glipizide ER] 5 mg PO DAILY 10/25/17 Ipratropium/Albuterol Sulfate [Combivent Respimat Inhal [place]] 4 gm IH BID 10/25 Metformin HCl 500 mg PO DAILY 10/25/17 Metoprolol Succinate [Toprol Xl] 100 mg PO DAILY 10/25/17 Multivitamin [One Daily] 1 each PO DAILY 10/25/17 Omeprazole 40 mg PO DAILY 10/25/17 Ranolazine [Ranexa] 500 mg PO BID 10/25/17 Risperidone [Risperdal] 1 mg PO HS 10/25/17 Salmeterol/Fluticasone [Advair 100Mcg/50Mcg -] 1 inh PO BID 10/25/17 Family Disease History - Family Disease History Family Disease History: Heart Disease: Father, Brother, Sister Review of Systems - Review of Systems Respiratory: reports: SOB, SOB on Exertion Vital Signs: Vital Signs Temperature 98.3 F 10/26/17 09:59 Pulse Rate 91 H 10/26/17 10:08 Respiratory Rate 22 10/26/17 09:59 Blood Pressure 139/73 10/26/17 09:59 O2 Sat by Pulse Oximetry (%) 93 L 10/26/17 10:08 Constitutional: Yes: No Distress, Calm Neck: Yes: Supple Respiratory: Yes: Regular, Diminished, On Nasal O2 Gastrointestinal: Yes: Normal Bowel Sounds, Soft, Abdomen, Obese Cardiovascular: Yes: Regular Rate and Rhythm JVD: No Carotid Bruit: No Heart Sounds: Yes: S1, S2 Murmur: Yes: Systolic Murmur, Grade 1 Edema: No - Other Data Labs, Other Data: CBC, BMP 10/25/17 18:53 10/25/17 20:28 Troponin, BNP 10/25/17 10/25/17 10/25/17 18:53 18:53 20:28 Troponin I Cancelled < 0.02 B-Natriuretic Peptide Cancelled 467.85 H Troponin, BNP 10/25/17 10/25/17 10/25/17 18:53 18:53 20:28 Troponin I Cancelled < 0.02 B-Natriuretic Peptide Cancelled 467.85 H NSR @ 88 RBBB Imaging - Results Chest X-ray: Report Reviewed (CHF bilateral effusions) Problem List - Problems (1) Acute on chronic diastolic (congestive) heart failure Code(s): I50.33 - ACUTE ON CHRONIC DIASTOLIC (CONGESTIVE) HEART FAILURE (2) Acute on chronic respiratory failure with hypoxia and hypercapnia Code(s): J96.21 - ACUTE AND CHRONIC RESPIRATORY FAILURE WITH HYPOXIA; J96.22 - ACUTE AND CHRONIC RESPIRATORY FAILURE WITH HYPERCAPNIA (3) COPD exacerbation Code(s): J44.1 - CHRONIC OBSTRUCTIVE PULMONARY DISEASE W (ACUTE) EXACERBATION (4) Diabetes mellitus Code(s): E11.9 - TYPE 2 DIABETES MELLITUS WITHOUT COMPLICATIONS Qualifiers: Diabetes mellitus type: type 2 Diabetes mellitus complication status: without complication Diabetes mellitus joint terminal attack controller insulin use: without joint terminal attack controller use Qualified Code(s): E11.9 - Type 2 diabetes mellitus without complications (5) Hypertension Code(s): I10 - ESSENTIAL (PRIMARY) HYPERTENSION Qualifiers: Hypertension type: essential hypertension Qualified Code(s): I10 - Essential (primary) hypertension (6) Right bundle branch block (RBBB) Code(s): I45.10 - UNSPECIFIED RIGHT BUNDLE-BRANCH BLOCK (7) Tobacco abuse Code(s): Z72.0 - TOBACCO USE Assessment/Plan 06/14/2017 Echo: Normal LV size and fxn, abnl LV compliance, mild ao dilatation, no sig valve abnl 1. Acute on chronic hypercapenic, hypoxemic respiratory failure improving 2. Acute on Chronic Diastolic Heart Failure improving 3. Acute COPD Exacerbation improving 4. Coronary artery disease with obstructive RCA and RPDA, angina pectoris 5. Hypertension/hypertensive cardiovascular disease 6. Type 2 diabetes mellitus 7. Ascending thoracic aortic aneurysm 8. History of rheumatoid arthritis 9. Right bundle branch block 10. Previous history of GI bleed 11. Tobacco abuse PLAN: 1. Lasix 20 qd with monitor diuretic response, renal fxn and electrolytes 2. Continue bronchodilator, oral steroid taper, empiric abx course, O2 as needed to keep SpO2 >90%, BiPAP to assist in work of breathing 3. Continue ASA 81 qd, resume Metoprolol XL 100 qd and Hyzaar 1 qd, Amlodipine 10 qd and Ranexa 500 bid as tolerated 4. Continue DVT and GI prophylaxis, tobacco cessation
[2017-10-26] MEDS ORDERED: FUROSEMIDE 20 MG TABLET (FP) PO SCH (13:30)
[2017-10-26] MEDS ORDERED: FUROSEMIDE 40 MG/4 ML INJECTABLE VIAL IVPUSH ONE (13:45)
[2017-10-26] MEDS ORDERED: ALBUTEROL SO4 2.5/IPRATROPIUM 0.5 INH SOL 3 ML VIAL.NEB. NEB PRN (14:27)
[2017-10-26] MEDS ORDERED: FLUTICASONE/SALMETEROL 100 MCG/50 MCG DISKUS IH SCH (14:30)
[2017-10-26] MEDS: methylPREDNISolone NA SUCC 40 MG/1 ML VIAL IVPUSH SCH ×2 (15:18→22:11)
[2017-10-26] MEDS: LOSARTAN 50MG/HCTZ 12.5MG 1 TAB (FP) PO SCH (15:20)
[2017-10-26] MEDS: METOPROLOL SUCCINATE 100 MG TAB.SR.24H (FP) PO SCH (15:20)
--- NOTE | 2017-10-26 15:49 | PN ---
Progress Note (short form) - Note Progress Note: PULMONARY CONSULTATION DICTATED 10/26/17 IMP ACUTE ON CHRONIC HYPOXEMIC/HYPERCAPNEIC RESPIRATORY FAILURE COPD EXACERBATION ACUTE ON CHRONIC DIASTOLIC HF HTN DM MORBID OBESITY OSAS TOBACCO ABUSE PLAN IV STEROIDS INHALED BRONCHODILATORS DIURETICS O2 BIPAP AT NIGHT AND PRN F/U CHEST X-RAY SMOKING CESSATION DR CHRIS Problem List - Problems (1) CHF (congestive heart failure) Code(s): I50.9 - HEART FAILURE, UNSPECIFIED (2) Tobacco abuse Code(s): Z72.0 - TOBACCO USE (3) Acute on chronic diastolic (congestive) heart failure Code(s): I50.33 - ACUTE ON CHRONIC DIASTOLIC (CONGESTIVE) HEART FAILURE (4) Acute on chronic respiratory failure with hypoxia and hypercapnia Code(s): J96.21 - ACUTE AND CHRONIC RESPIRATORY FAILURE WITH HYPOXIA; J96.22 - ACUTE AND CHRONIC RESPIRATORY FAILURE WITH HYPERCAPNIA (5) COPD exacerbation Code(s): J44.1 - CHRONIC OBSTRUCTIVE PULMONARY DISEASE W (ACUTE) EXACERBATION (6) Diabetes mellitus Code(s): E11.9 - TYPE 2 DIABETES MELLITUS WITHOUT COMPLICATIONS Qualifiers: Diabetes mellitus type: type 2 Diabetes mellitus complication status: without complication Diabetes mellitus care home insulin use: without technician terminal and repeater use Qualified Code(s): E11.9 - Type 2 diabetes mellitus without complications (7) Hypertension Code(s): I10 - ESSENTIAL (PRIMARY) HYPERTENSION Qualifiers: Hypertension type: essential hypertension Qualified Code(s): I10 - Essential (primary) hypertension (8) Sleep apnea Code(s): G47.30 - SLEEP APNEA, UNSPECIFIED (9) Morbid obesity Code(s): E66.01 - MORBID (SEVERE) OBESITY DUE TO EXCESS CALORIES
--- NOTE | 2017-10-26 16:07 | CON.PULM ---
Consult Reason for Consultation:: We were called to assess the patient for SOB - History of Present Illness Chief Complaint: Shortness of breath History of Present Illness: The patient is a 72 yo f w/PMH of COPD (2L O2 dependent), CAD (s/p Stent 2012) , chronic diastolic heart failure, CAD, DM, dementia, HTN and dementia who presented to the ER c/o worsening SOB over the past several days. Patient is pleasantly confused on exam and the majority of her history is obtained from the EMR and from her daughter at bedside. The patient has had progressively worsening dyspnea which is associated with a dry cough. Patient admits to smoking tobacco cigarettes at home. Patient denied fever, chills, chest pain, chest tightness. Patient was admitted for CHF/COPD exacerbation. 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 Cardio/Vascular: Yes: CAD, CHF, HTN Pulmonary: Yes: COPD, Sleep Apnea Renal/: Yes: Renal Inusuff ...: No Rheumatology: Yes: Rheumatoid Arthritis Endocrine: Yes: Diabetes Mellitus - Past Surgical History Past Surgical History: Yes: Hysterectomy, Appendectomy, Cholecystectomy - Alcohol/Substance Use Hx Alcohol Use: No History of Substance Use: reports: None - Smoking History Smoking history: Former smoker Have you smoked in the past 12 months: Yes Aproximately how many cigarettes per day: 1 If you are a former smoker, when did you quit?: 1 month ago - Social History Usual Living Arrangement: With Child ADL: Family Assistance History of Recent Travel: No Home Medications - Allergies Allergies/Adverse Reactions: Allergies Allergy/AdvReac Type Severity Reaction Status Date / Time No Known Allergies Allergy Verified 10/25/17 17:15 - Home Medications Home Medications: Ambulatory Orders Albuterol Sulfate Inhaler - [Ventolin Hfa Inhaler -] 2 puff IH PRN PRN 10/25/17 Amlodipine Besylate [Norvasc -] 10 mg PO DAILY 10/25/17 Aspirin [ASA -] 81 mg PO DAILY 10/25/17 Fluticasone Propionate 32 gm NS DAILY 10/25/17 Gabapentin [Neurontin] 300 mg PO DAILY 10/25/17 Glipizide [Glipizide ER] 5 mg PO DAILY 10/25/17 Ipratropium/Albuterol Sulfate [Combivent Respimat Inhal [place]] 4 gm IH BID 10/25 Metformin HCl 500 mg PO DAILY 10/25/17 Metoprolol Succinate [Toprol Xl] 100 mg PO DAILY 10/25/17 Multivitamin [One Daily] 1 each PO DAILY 10/25/17 Omeprazole 40 mg PO DAILY 10/25/17 Ranolazine [Ranexa] 500 mg PO BID 10/25/17 Risperidone [Risperdal] 1 mg PO HS 10/25/17 Salmeterol/Fluticasone [Advair 100Mcg/50Mcg -] 1 inh PO BID 10/25/17 Family Disease History - Family Disease History Family Disease History: Heart Disease: Father, Brother, Sister Review of Systems - Review of Systems Constitutional: denies: Chills, Fever, Weakness Cardiovascular: reports: Shortness of Breath. denies: Chest Pain, Edema, Palpitations Respiratory: reports: Cough, Orthopnea, SOB. denies: Hemoptysis Physical Exam Vital Sings: Vital Signs Temperature 97.7 F 10/26/17 15:28 Pulse Rate 103 H 10/26/17 15:28 Respiratory Rate 18 10/26/17 15:28 Blood Pressure 144/68 10/26/17 15:28 O2 Sat by Pulse Oximetry (%) 93 L 10/26/17 10:08 Constitutional: Yes: Well Nourished, No Distress, Other (pleasantly confused) HENT: Yes: Atraumatic, Normocephalic Cardiovascular: Yes: Regular Rate and Rhythm, S1, S2. No: Bruit, JVD, Gallop, Murmur, Rub, S3, S4 Respiratory: Yes: Regular, Other (Patient saturating 88-90% on 5L NC) ...Breath Sounds: LLL Diminished, RLL Diminished Labs: CBC, BMP 10/25/17 18:53 10/25/17 20:28 ABG Results ABG pH 7.36 (7.35-7.45) 10/26/17 07:33 ABG pCO2 at Pt Temp 67.0 mmHg (35-45) H* 10/26/17 07:33 ABG pO2 at Pt Temp 61.5 mmHg (70-100) L 10/26/17 07:33 ABG HCO3 37.0 meq/L (22-26) H 10/26/17 07:33 ABG O2 Sat (Measured) 90.4 % (90-98.9) 10/26/17 07:33 ABG O2 Content 14.6 % vol (15-22) L 10/26/17 07:33 ABG Base Excess 9.7 meq/l (-2-2) H 10/26/17 07:33 Assessment/Plan The patient is a 72 yo f w/ PMH COPD, DM, TIAs
[2017-10-26] MEDS: BUDESONIDE/FORMETEROL FUMARATE 80/4.5 mcg INHALER IH SCH ×2 (17:50→22:12)
[2017-10-26] MEDS: NICOTINE 7 MG/24 HOURS TOPICAL PATCH TD SCH (17:50)
--- NOTE | 2017-10-26 18:33 | PN ---
Teaching Attending Note Name of Resident: Renzo Gil ATTENDING PHYSICIAN STATEMENT I saw and evaluated the patient. I reviewed the resident's note and discussed the case with the resident. I agree with the resident's findings and plan as documented. SUBJECTIVE:seen at noon. feels much better than yesterday. ahs no fever or chills. cont to smoke . has LE edema OBJECTIVE: NAD CV: RRR, 3/6 SM at RUSB and LLSB . JVD Lungs: crackles at R base. Abd: soft, TTP ( minimal ) in all quadrants. NL BS , no rebound tenderness or guarding Ext: 2+ pitting edema on legs A/P : 72 y/o lady with h/o COPD exacerbation , active smoking, CAD, s/p stneting , D CHF, GAstric mass, DM , HL, GI bleed , and other medical problems who presented with SOB and was found to have acute hypoxic hypercapnic resp failure 1- acute hypoxic hypercapnic resp failure 2/2 acute COPD exacerbation and possible acute Diastolic CHF . - cont steroids 40 BID - cont NEbs , add PRN - cont symbicort - O2 as needed . BIpap at night - No evidence of PNA . Azithro for antiinflammatory effect x 3 days only - lasix starting tomorrow 2- H/o CAD, HTN, HLP: cont BB , ARB/HCTZ, norvasc. 3- DM : hold oral agents . cont SSI 4- GI and DVT PX HLOC
--- NOTE | 2017-10-26 18:51 | CONS ---
DATE OF CONSULTATION: 10/26/2017 PULMONARY CONSULTATION REFERRING PHYSICIAN: Macey Ibarra M.D. HISTORY OF PRESENT ILLNESS: The patient is a 72-year-old black female known to me from previous hospitalization with a past history of ASHD, angina pectoris, hypertension, advanced COPD on home O2, rheumatoid arthritis, obstructive sleep apnea, type 2 diabetes, ascending aortic aneurysm, longstanding history of tobacco use, unknown whether or not she still smokes, admitted to [facility] on October 25 with complaint of increasing shortness of breath. Patient denied any complaint of chest pain, nausea, vomiting, or diaphoresis. Patient stated was recently hospitalized with COPD exacerbation and [id number] diastolic heart failure. She is treated with inhaled bronchodilators and diuretics with good response. She apparently as stated before, patient is admitted with the above. She denied any fevers or chills. States that she has sleep apnea but uses BiPAP. As stated before, she has history of tobacco abuse and currently still smokes, is unsure exactly what quantity. She denies any fevers, chills, weight loss, or night sweats. There is no history of previous travel. There is no history of DVT or PE in the past. PAST MEDICAL HISTORY: Again includes ASHD, congestive heart failure, angina, diabetes type 2, advanced COPD on home O2 with chronic hypoxemic hypercapnic respiratory failure, rheumatoid arthritis, ascending aortic aneurysm, sleep apnea, chronic kidney disease. SOCIAL HISTORY: Denies history of tobacco abuse, no occupational exposures. CURRENT MEDICATIONS: Include Solu-Medrol 40 b.i.d., Advair, Hyzaar, Zithromax, heparin, Neurontin, Nicoderm, DuoNeb, Toprol, Ranexa, Norvasc, aspirin, melatonin. REVIEW OF SYSTEMS: Positive dyspnea. No chest pain. No palpitations. No cough. No hemoptysis. No abdominal pain. PHYSICAL EXAMINATION: General: The patient is an obese female, awake, alert, in no acute distress. Vital signs: She is currently afebrile, blood pressure 144/68, respiratory rate 18, and O2 saturation is 93% on 4 L. HEENT: Head is normocephalic, atraumatic. Neck: Supple. Heart: Regular. S1, S2. Chest: Bilateral crackles with a few scattered bilateral wheezes. Abdomen: Soft. Bowel sounds positive. Extremities: No cyanosis, edema. LABORATORY: WBC is 5, hemoglobin 12.3, hematocrit 37.9, platelet count of 226,000. Blood gas: pH 7.36, pCO2 of 67, pO2 of 61, bicarbonate 37, saturation of 90.4. BUN 16, creatinine 0.8. Chest x-ray reveals cardiomegaly, pulmonary vascular congestion. BNP is 467. IMPRESSION: 1. [id number] hypoxemic hypercapnic respiratory failure secondary to chronic obstructive pulmonary disease exacerbation. 2. Congestive heart failure. 3. Hypertension. 4. Morbid obesity. 5. Obstructive sleep apnea. 6. Diabetes. PLAN: IV steroids. Inhaled bronchodilators. Supplemental O2. Compliance with BiPAP at night, if patient complies. Smoking cessation. Obtain followup chest x-rays. POORNIMA CHRIS M.D. SARA/[id number]
--- NOTE | 2017-10-26 19:45 | CON.GI ---
Consult Consult Specialty:: GI Referred by:: Dr Ibarra Reason for Consultation:: gastric mass - History of Present Illness Chief Complaint: Patient is here for cardiopulmonary issues History of Present Illness: 72 F with severe CAD and COPD requiring home O2 admitted with dyspnea. I am called to evaluate gastric mass seen on EGD done June,. As well, her CEA is elevated at 13 She is a current smoker and daughter is a nurse and at the bedside. Biopsies taken at time of EGD were negative for malignancy. (gastric mucosa and bland smooth muscle) There was some thought about sending for EUS but daughter deferred. 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 Cardio/Vascular: Yes: CAD, CHF, HTN Pulmonary: Yes: COPD, Sleep Apnea Renal/: Yes: Renal Inusuff ...: No Rheumatology: Yes: Rheumatoid Arthritis Endocrine: Yes: Diabetes Mellitus - Past Surgical History Past Surgical History: Yes: Hysterectomy, Appendectomy, Cholecystectomy - Alcohol/Substance Use Hx Alcohol Use: No History of Substance Use: reports: None - Smoking History Smoking history: Former smoker Have you smoked in the past 12 months: Yes Aproximately how many cigarettes per day: 1 If you are a former smoker, when did you quit?: 1 month ago - Social History Usual Living Arrangement: With Child ADL: Family Assistance History of Recent Travel: No Home Medications - Allergies Allergies/Adverse Reactions: Allergies Allergy/AdvReac Type Severity Reaction Status Date / Time No Known Allergies Allergy Verified 10/25/17 17:15 - Home Medications Home Medications: Ambulatory Orders Albuterol Sulfate Inhaler - [Ventolin Hfa Inhaler -] 2 puff IH PRN PRN 10/25/17 Amlodipine Besylate [Norvasc -] 10 mg PO HS 10/25/17 Aspirin [ASA -] 81 mg PO DAILY 10/25/17 Fluticasone Propionate 32 gm NS DAILY 10/25/17 Gabapentin [Neurontin] 300 mg PO HS 10/25/17 Glipizide [Glipizide ER] 5 mg PO DAILY 10/25/17 Ipratropium/Albuterol Sulfate [Combivent Respimat Inhal [place]] 4 gm IH BID 10/25 Metformin HCl 500 mg PO DAILY 10/25/17 Metoprolol Succinate [Toprol Xl] 100 mg PO DAILY 10/25/17 Multivitamin [One Daily] 1 each PO DAILY 10/25/17 Omeprazole 40 mg PO DAILY 10/25/17 Ranolazine [Ranexa] 500 mg PO BID 10/25/17 Risperidone [Risperdal] 1 mg PO HS 10/25/17 Salmeterol/Fluticasone [Advair 100Mcg/50Mcg -] 1 inh PO BID 10/25/17 Family Disease History - Family Disease History Family Disease History: Heart Disease: Father, Brother, Sister Physical Exam-GI Vital Signs: Vital Signs Temperature 97.7 F 10/26/17 15:28 Pulse Rate 103 H 10/26/17 15:28 Respiratory Rate 18 10/26/17 15:28 Blood Pressure 144/68 10/26/17 15:28 O2 Sat by Pulse Oximetry (%) 90 L 10/26/17 19:04 Constitutional: Yes: Well Nourished, Obese Neck: Yes: Supple Cardiovascular: Yes: S1, S2 Respiratory: Yes: On Nasal O2, Poor Air Entry Gastrointestinal Inspection: Yes: WNL ...Auscultate: Yes: Hypoactive Bowel Sounds ...Palpate: Yes: Soft. No: Tenderness Labs: CBC, BMP 10/25/17 18:53 10/25/17 20:28 Hepatic Panel Total Bilirubin 0.4 mg/dL (0.2-1.0) D 10/25/17 20:28 AST 9 U/L (15-37) L D 10/25/17 20:28 ALT 19 U/L (12-78) D 10/25/17 20:28 Alkaline Phosphatase 91 U/L (45-117) 10/25/17 20:28 Albumin 3.1 g/dl (3.4-5.0) L 10/25/17 20:28 Assessment/Plan I spoke with the daughter at length. She expressed the desire for comfort care only There is no need to do procedures and she is DNR/DNI Gastric lesion likely benign. Elevated CEA secondary to tobacco use. Management of respiratory and cardiac symptoms only
[2017-10-26] MEDS: risperiDONE 1 MG TABLET (FP) PO SCH (22:10)
[2017-10-26] MEDS: MELATONIN 5 MG TABLETS PO SCH (22:10)
[2017-10-26] MEDS ORDERED: INSULIN (NOVOLOG) ASPART 100 UNITS/ML 10ML VIAL ONE (22:18)
[2017-10-27] MEDS ORDERED: LORazepam 2 MG/ML SDV VIAL IVPUSH ONE (02:56)
[2017-10-27] MEDS: risperiDONE 1 MG TABLET (FP) PO SCH ×2 (06:14→21:38)
[2017-10-27] MEDS: INSULIN SLIDING SCALE (NOVOLOG) 1 VIAL SQ SCH ×4 (06:18→23:24)
[2017-10-27] MEDS ORDERED: INSULIN (NOVOLOG) ASPART 100 UNITS/ML 10ML VIAL ONE (06:43)
[2017-10-27] MEDS: ALBUTEROL SO4 2.5/IPRATROPIUM 0.5 INH SOL 3 ML VIAL.NEB. NEB SCH ×5 (07:00→23:03)
--- NOTE | 2017-10-27 08:31 | PN ---
Physical Exam: SUBJECTIVE: Patient seen and examined - Mild somnolent, delirious when seen this AM. Received ativan overnight due to agitation, combativeness with nursing staff - Daughter at bedside. States that pt tends to , usually receives risperdal in PM to help with insomnia. Endorses pt seems better - Pt endorses improving SOB. Complaining of issues with nursing staff. Tangential speech. Worried about falling, frustrated that she has not received adequate assistance by staff. - Denies any fever/chills, OLIVO/dizzines, CP/palpitations, cough, N/V, dysuria, peripheral numbness/weakness PM - Pt refusing treatment with RT. Ordered for standing haldol for agitation. Pt continues to be agitated, combative with nursing/refusing tx OBJECTIVE: Vital Signs Intake & Output 10/24/17 10/25/17 10/26/17 10/27/17 23:59 23:59 23:59 23:59 Intake Total 300 200 Output Total 500 Balance -200 200 Weight 81.647 kg 88.451 kg 88.451 kg Period Temp Pulse Resp BP Sys/Cox Pulse Ox Last 24 Hr 97.4 F-98.8 F 84-104 18-22 126-162/60-84 90-97 GENERAL: A&Ox2, does not know date. Somnolent, in no acute distress. HEAD: NCAT EYES: PERRL, extraocular movements intact, sclera anicteric, conjunctiva clear. No ptosis. ENT: Ears normal, nares patent, oropharynx clear without exudates, moist mucous membranes. NECK: Trachea midline, supple. JVD noted. LUNGS: Much improved. Decreased bibasilar breath sounds. No longer wheezing. No accessory muscle use. HEART: 3/6 systolic ejection murmur heard best at RUSB and LUSB. Regular rate and rhythm, S1, S2 without murmur, rub or gallop. ABDOMEN: Soft, nontender, nondistended, normoactive bowel sounds, no guarding, no rebound. No suprapubic tenderness Upper EXTREMITIES: 2+ pulses, warm, well-perfused, no edema. Lower extremities: 2+ DP, PT pulses BL. 1+ pitting edema bilaterally, improved. NEUROLOGICAL: Cranial nerves II through XII grossly intact. Normal speech, gait not observed. Psych: Still with tangential speech, pleasant, normal affect Laboratory Results - last 24 hr 10/26/17 10/26/17 10/26/17 00:39 12:08 14:42 POC Glucometer 148.07062 368 266 10/26/17 10/26/17 10/27/17 17:58 22:08 06:10 POC Glucometer 236 296 225 Active Medications Generic Name Dose Route Start Last Admin Trade Name Freq PRN Reason Stop Dose Admin Albuterol/Ipratropium 1 amp 10/26/17 05:28 10/27/17 07:00 Duoneb - NEB 1 amp QIDR [facility] Administration Albuterol/Ipratropium 1 amp 10/26/17 14:27 Duoneb - NEB Q4H PRN SHORTNESS OF BREATH Amlodipine Besylate 10 mg 10/27/17 22:00 Norvasc - PO HS [facility] Aspirin 81 mg 10/26/17 10:00 10/26/17 12:23 Asa - PO 81 mg DAILY [facility] Administration Azithromycin 500 mg 10/27/17 10:00 Zithromax - PO DAILY [facility] Budesonide/Formoterol Fumarate 2 puff 10/26/17 16:30 10/26/17 22:12 Symbicort 80/4.5mcg - IH 2 inh BID [facility] Administration Furosemide 20 mg 10/27/17 10:00 Lasix - PO DAILY IV[facility] Gabapentin 300 mg 10/27/17 22:00 Neurontin - PO HS [facility] HCTZ/Losartan Potassium 1 tab 10/26/17 13:30 10/26/17 15:20 Hyzaar - PO 1 tab DAILY [facility] Administration Heparin Sodium (Porcine) 5,000 unit 10/25/17 23:45 10/26/17 22:11 Heparin - SQ 5,000 unit BID [facility] Administration Insulin Aspart 1 vial 10/26/17 22:00 10/27/17 06:18 Novolog Vial Sliding Scale - SQ 4 units ACHS [facility] Administration Protocol Melatonin 10 mg 10/25/17 22:15 10/26/17 22:10 Melatonin PO 10 mg HS [facility] Administration Methylprednisolone Sodium Succinate 40 mg 10/26/17 15:00 10/26/17 22:11 Solu-Medrol - IVPUSH 40 mg BID [facility] Administration Metoprolol Succinate 100 mg 10/26/17 13:30 10/26/17 15:20 Toprol Xl - PO 100 mg DAILY [facility] Administration Nicotine 7 mg 10/26/17 10:00 10/26/17 17:50 Nicoderm Patch - TD 7 mg DAILY [facility] Administration Pantoprazole Sodium 40 mg 10/26/17 10:00 10/26/17 12:22 Protonix - PO 40 mg DAILY [facility] Administration Ranolazine 500 mg 10/25/17 22:15 10/26/17 22:09 Ranexa - PO 500 mg BID [facility] Administration Risperidone 1 mg 10/26/17 20:00 10/27/17 06:14 Risperdal - PO Not Given HS IVANIA No micro pending CXR 10/26 - BL Pleural effusions. L compressive ateclectasis EKG 10/25 - RBBB. Extreme R axis deviation. TWI in v1-v3, v6. ASSESSMENT/PLAN: 72 yo woman w/ pmh of COPD, CAD (stents in 2012), diastolic CHF, HTN, DM,, dementia, who presented to ED with progressive increased WOB/SOB after >1 week of finishing steroid taper, unresponsive to home O2/duoneb tx, satting in low 80s at home with hx of multiple admissions for COPD/CHF exacerbations. #Acute hypoxic hypercapneic respiratory failure - AM ABG 7.36/67/61/37, minimal change on 5L O2. SOB improved since admission - O2 Tx. Maintain O2 >88%. Bipap at night. - If increasingly somnolent, hypoxic during day, escalate to BiPap and send ABG - Solumedrol 40mg BID. Taper tomorrow. - Duonebs q6h, q4h PRN - Symbicort BID - Zithromax 500mg day 2/3 for anti-inflammatory effects - Pulmonology consulted. Recs appreciated - No cultures sent - Smoking cessation #Diastolic CHF - BNP 467 on admission. ECHO 06/14/2017 - grossly normal, EF 70%. - Toprol xl 100mg daily, Hyzaar 1 tab, amlodipine 10 qd per cards - Lasix 20mg PO daily per cardiology. Trend Cr - Ranexa BID - Cardiology consulted. Recs appreciated. - Strict Is and Os #CAD - EKG w/ RBBB, TWIs V1-3,V6, NSR. Prior stents in 2012 - ASA 81mg - Continue BB, hyzaar - Trop neg x1 (0.02) - cardiology following #Agitation/dementia - pt with worsening dementia per daughter, hostile with staff, declining tx - Continue home risperdal qHS - Haldol PRN for acute agitation #DM - BGM ACHS - ISS - Gabapentin 300mg qhs for diabetic neuropathy #HTN - Continue home norvasc 10mg daily. Hold MARIN/ARB in setting of increased Cr - Trend Cr. Up from 0.8 to 1.1 #Gastric mass - Pt/family no wish for treatment/biopsy - GI consulted. Per Dr. Malone, daughter wishes for comfort care only. 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 Fred Gil, PGY1 Visit type - Emergency Visit Emergency Visit: Yes ED Registration Date: 10/25/17 Care time: The patient presented to the Emergency Department on the above date and was hospitalized for further evaluation of their emergent condition. - New Patient This patient is new to me today: No - Critical Care Critical Care patient: No
[2017-10-27 08:41] LABS: BASOPHIL 0.2 % (0-2.0); MCH 30.6 pg (25.7-33.7); MCHC 31.8 g/dl (32.0-36.0); MEAN CELL VOLUME 96.1 fl (80-96); MEAN PLT VOLUME 8.7 fl (7.5-11.1); NEUTROPHILS 91.7 % (42.8-82.8); PLATELET COUNT 229 K/MM3 (134-434); RDW 14.7 % (11.6-15.6); WHITE BLOOD COUNT 8.4 K/mm3 (4.0-10.0)
[2017-10-27 08:44] LABS: CALCIUM 10.7 mg/dL (8.5-10.1)
[2017-10-27 08:47] LABS: ANION GAP 6 (8-16); CO2 33 mmol/L (21-32); CREATININE 1.1 mg/dL (0.55-1.02); GLUCOSE,RANDOM 227 mg/dL (74-106)
[2017-10-27] MEDS ORDERED: PT OWN MED DRAWER 7, Y5N ONE ×3 (10:22→19:37)
[2017-10-27] MEDS: RANOLAZINE E.R. 500 MG TABLET (FP) PO SCH ×2 (10:23→21:38)
[2017-10-27] MEDS: PANTOPRAZOLE 40 MG TABLET (FP) PO SCH (10:24)
[2017-10-27] MEDS: HEPARIN NA (PORCINE) 5,000 UNITS/ML 1ML VIAL SQ SCH ×2 (10:24→21:38)
[2017-10-27] MEDS: FUROSEMIDE 20 MG TABLET (FP) PO SCH (10:24)
[2017-10-27] MEDS: AZITHROMYCIN 250 MG TABLET PO SCH (10:24)
[2017-10-27] MEDS: LOSARTAN 50MG/HCTZ 12.5MG 1 TAB (FP) PO SCH (10:24)
[2017-10-27] MEDS: NICOTINE 7 MG/24 HOURS TOPICAL PATCH TD SCH (10:24)
[2017-10-27] MEDS: METOPROLOL SUCCINATE 100 MG TAB.SR.24H (FP) PO SCH (10:25)
[2017-10-27] MEDS: BUDESONIDE/FORMETEROL FUMARATE 80/4.5 mcg INHALER IH SCH ×2 (10:25→23:27)
[2017-10-27] MEDS: ASPIRIN 81 MG CHEWABLE TABLETS PO SCH (10:25)
[2017-10-27] MEDS: methylPREDNISolone NA SUCC 40 MG/1 ML VIAL IVPUSH SCH ×2 (10:25→21:38)
--- NOTE | 2017-10-27 11:01 | PN ---
Progress Note, Physician History of Present Illness: Still with dyspnea on exertion, episode of agitation overnight with h/o sundowning. - Current Medication List Current Medications: Active Medications Albuterol/Ipratropium (Duoneb -) 1 amp NEB QIDR [facility] Last Admin: 10/27/17 07:00 Dose: 1 amp Albuterol/Ipratropium (Duoneb -) 1 amp NEB Q4H PRN PRN Reason: SHORTNESS OF BREATH Amlodipine Besylate (Norvasc -) 10 mg PO HS [facility] Aspirin (Asa -) 81 mg PO DAILY [facility] Last Admin: 10/27/17 10:25 Dose: 81 mg Azithromycin (Zithromax -) 500 mg PO DAILY [facility] Last Admin: 10/27/17 10:24 Dose: 500 mg Budesonide/Formoterol Fumarate (Symbicort 80/4.5mcg -) 2 puff IH BID [facility] Last Admin: 10/27/17 10:25 Dose: 2 inh Furosemide (Lasix -) 20 mg PO DAILY [facility] Last Admin: 10/27/17 10:24 Dose: 20 mg Gabapentin (Neurontin -) 300 mg PO [facility] HCTZ/Losartan Potassium (Hyzaar -) 1 tab PO DAILY [facility] Last Admin: 10/27/17 10:24 Dose: 1 tab Heparin Sodium (Porcine) (Heparin -) 5,000 unit SQ BID [facility] Last Admin: 10/27/17 10:24 Dose: 5,000 unit Insulin Aspart (Novolog Vial Sliding Scale -) 1 vial SQ ACHS [facility] PRN Reason: Protocol Last Admin: 10/27/17 06:18 Dose: 4 units Melatonin (Melatonin) 10 mg PO HS [facility] Last Admin: 10/26/17 22:10 Dose: 10 mg Methylprednisolone Sodium Succinate (Solu-Medrol -) 40 mg IVPUSH BID [facility] Last Admin: 10/27/17 10:25 Dose: 40 mg Metoprolol Succinate (Toprol Xl -) 100 mg PO DAILY [facility] Last Admin: 10/27/17 10:25 Dose: 100 mg Nicotine (Nicoderm Patch -) 7 mg TD DAILY [facility] Last Admin: 10/27/17 10:24 Dose: 7 mg Pantoprazole Sodium (Protonix -) 40 mg PO DAILY [facility] Last Admin: 10/27/17 10:24 Dose: 40 mg Ranolazine (Ranexa -) 500 mg PO BID [facility] Last Admin: 10/27/17 10:23 Dose: 500 mg Risperidone (Risperdal -) 1 mg PO HS [facility] Last Admin: 10/27/17 06:14 Dose: Not Given - Objective Vital Signs: Vital Signs Temperature 97.5 F L 10/27/17 07:14 Pulse Rate 93 H 10/27/17 07:14 Respiratory Rate 20 10/27/17 07:14 Blood Pressure 162/84 10/27/17 07:14 O2 Sat by Pulse Oximetry (%) 92 L 10/26/17 21:00 Constitutional: Yes: No Distress, Calm Neck: Yes: Supple Cardiovascular: Yes: Regular Rate and Rhythm Respiratory: Yes: Regular, Diminished, On Nasal O2 Gastrointestinal: Yes: Normal Bowel Sounds, Soft, Abdomen, Obese Edema: No Labs: CBC, BMP 10/27/17 06:00 10/27/17 06:00 Problem List - Problems (1) Acute on chronic diastolic (congestive) heart failure Code(s): I50.33 - ACUTE ON CHRONIC DIASTOLIC (CONGESTIVE) HEART FAILURE (2) Acute on chronic respiratory failure with hypoxia and hypercapnia Code(s): J96.21 - ACUTE AND CHRONIC RESPIRATORY FAILURE WITH HYPOXIA; J96.22 - ACUTE AND CHRONIC RESPIRATORY FAILURE WITH HYPERCAPNIA (3) COPD exacerbation Code(s): J44.1 - CHRONIC OBSTRUCTIVE PULMONARY DISEASE W (ACUTE) EXACERBATION (4) Diabetes mellitus Code(s): E11.9 - TYPE 2 DIABETES MELLITUS WITHOUT COMPLICATIONS Qualifiers: Diabetes mellitus type: type 2 Diabetes mellitus complication status: without complication Diabetes mellitus product safety head insulin use: without mcc use Qualified Code(s): E11.9 - Type 2 diabetes mellitus without complications (5) Hypertension Code(s): I10 - ESSENTIAL (PRIMARY) HYPERTENSION Qualifiers: Hypertension type: essential hypertension Qualified Code(s): I10 - Essential (primary) hypertension (6) Right bundle branch block (RBBB) Code(s): I45.10 - UNSPECIFIED RIGHT BUNDLE-BRANCH BLOCK (7) Tobacco abuse Code(s): Z72.0 - TOBACCO USE Assessment/Plan 06/14/2017 Echo: Normal LV size and fxn, abnl LV compliance, mild ao dilatation, no sig valve abnl 1. Acute on chronic hypercapenic, hypoxemic respiratory failure slowly improving 2. Acute on Chronic Diastolic Heart Failure improving 3. Acute COPD Exacerbation improving 4. Coronary artery disease with obstructive RCA and RPDA, angina pectoris 5. Hypertension/hypertensive cardiovascular disease 6. Type 2 diabetes mellitus 7. Ascending thoracic aortic aneurysm 8. History of rheumatoid arthritis 9. Right bundle branch block 10. Previous history of GI bleed 11. Tobacco abuse 12. OSAS PLAN: 1. Lasix 20 qd with monitor diuretic response, renal fxn and electrolytes 2. Continue bronchodilator, IV steroid taper, empiric abx course, O2 as needed to keep SpO2 >90%, BiPAP to assist in work of breathing 3. Continue ASA 81 qd, Metoprolol XL 100 qd, Hyzaar 1 qd, Amlodipine 10 qd and Ranexa 500 bid as tolerated 4. Continue DVT and GI prophylaxis, tobacco cessation
[2017-10-27] MEDS ORDERED: HALOPERIDOL LACTATE 5 MG/ML IVPUSH ONE (11:27)
--- NOTE | 2017-10-27 11:53 | PN ---
Progress Note (short form) - Note Progress Note: PULMONARY Episodes of agitation. States breathing is better but visibly tachypneic. Last Vital Signs Temp Pulse Resp BP Pulse Ox 99.4 F 92 H 20 133/69 92 L 10/27/17 09:00 10/27/17 09:00 10/27/17 09:00 10/27/17 09:00 10/26/17 21:00 Gen: tachypneic at rest Heart: RRR Lung: basilar rhonchi Abd: soft, nontender Ext: no edema CBC, BMP 10/27/17 06:00 10/27/17 06:00 Active Medications Albuterol/Ipratropium (Duoneb -) 1 amp NEB QIDR [facility] Last Admin: 10/27/17 07:00 Dose: 1 amp Albuterol/Ipratropium (Duoneb -) 1 amp NEB Q4H PRN PRN Reason: SHORTNESS OF BREATH Amlodipine Besylate (Norvasc -) 10 mg PO HS [facility] Aspirin (Asa -) 81 mg PO DAILY [facility] Last Admin: 10/27/17 10:25 Dose: 81 mg Azithromycin (Zithromax -) 500 mg PO DAILY [facility] Last Admin: 10/27/17 10:24 Dose: 500 mg Budesonide/Formoterol Fumarate (Symbicort 80/4.5mcg -) 2 puff IH BID [facility] Last Admin: 10/27/17 10:25 Dose: 2 inh Furosemide (Lasix -) 20 mg PO DAILY [facility] Last Admin: 10/27/17 10:24 Dose: 20 mg Gabapentin (Neurontin -) 300 mg PO HS [facility] HCTZ/Losartan Potassium (Hyzaar -) 1 tab PO DAILY [facility] Last Admin: 10/27/17 10:24 Dose: 1 tab Heparin Sodium (Porcine) (Heparin -) 5,000 unit SQ BID [facility] Last Admin: 10/27/17 10:24 Dose: 5,000 unit Insulin Aspart (Novolog Vial Sliding Scale -) 1 vial SQ ACHS [facility] PRN Reason: Protocol Last Admin: 10/27/17 06:18 Dose: 4 units Melatonin (Melatonin) 10 mg PO HS [facility] Last Admin: 10/26/17 22:10 Dose: 10 mg Methylprednisolone Sodium Succinate (Solu-Medrol -) 40 mg IVPUSH BID [facility] Last Admin: 11/30/17 10:25 Dose: 40 mg Metoprolol Succinate (Toprol Xl -) 100 mg PO DAILY [facility] Last Admin: 10/27/17 10:25 Dose: 100 mg Nicotine (Nicoderm Patch -) 7 mg TD DAILY [facility] Last Admin: 10/27/17 10:24 Dose: 7 mg Pantoprazole Sodium (Protonix -) 40 mg PO DAILY [facility] Last Admin: 10/27/17 10:24 Dose: 40 mg Ranolazine (Ranexa -) 500 mg PO BID [facility] Last Admin: 10/27/17 10:23 Dose: 500 mg Risperidone (Risperdal -) 1 mg PO HS [facility] Last Admin: 10/27/17 06:14 Dose: Not Given A/P Acute on Chronic Hypoxic and Hypercapneic Respiratory Failure improving Acute COPD Exacerbation Acute on Chronic Diastolic Heart Failure CAD HTN DM BENJAMIN Smoker - continue medrol at current dose - inhaled bronchodilators - O2 to keep SpO2 >90% - azithromycin - enforced smoking cessation - DVT prophylaxis
[2017-10-27] MEDS ORDERED: HALOPERIDOL LACTATE 5 MG/ML IM ONE ×2 (12:12→16:30)
--- NOTE | 2017-10-27 12:58 | EKG ---
Test Reason : Blood Pressure : / mmHG Vent. Rate : 083 BPM Atrial Rate : 082 BPM P-R Int : 148 ms QRS Dur : 120 ms QT Int : 572 ms P-R-T Axes : 046 -74 021 degrees QTc Int : 672 ms POOR DATA QUALITY, INTERPRETATION MAY BE ADVERSELY AFFECTED SINUS RHYTHM LEFT AXIS DEVIATION RIGHT BUNDLE BRANCH BLOCK INFERIOR INFARCT (CITED ON OR BEFORE 28-SEP-2017) ABNORMAL ECG WHEN COMPARED WITH ECG OF 28-SEP-2017 11:03, CURRENT UNDETERMINED RHYTHM PRECLUDES RHYTHM COMPARISON, NEEDS REVIEW ST NOW DEPRESSED IN ANTERIOR LEADS QT HAS LENGTHENED Confirmed by ESSIE ARIAS MD ([id number]) on 10/27/2017 12:57:36 PM Referred By: Confirmed By:ESSIE ARIAS MD
--- NOTE | 2017-10-27 16:10 | PN ---
Teaching Attending Note Name of Resident: Renzo Gil ATTENDING PHYSICIAN STATEMENT I saw and evaluated the patient. I reviewed the resident's note and discussed the case with the resident. I agree with the resident's findings and plan as documented. SUBJECTIVE: No fever or chills. has no abd pain . no SOB . events last night notable for agitation requiring ativan OBJECTIVE: NAD CV: RRR, 3/6 SM at RUSB and LLSB . JVD Lungs: CTAB . good air entry . minimal wheezing heard Abd: soft, No tenderness . NL BS Ext: 2+ pitting edema on legs A/P : 72 y/o lady with h/o COPD exacerbation , active smoking, CAD, s/p stneting , D CHF, GAstric mass, DM , HL, GI bleed , and other medical problems who presented with SOB and was found to have acute hypoxic hypercapnic resp failure 1- Acute hypoxic hypercapnic resp failure 2/2 acute COPD exacerbation and possible acute Diastolic CHF . - cont steroids 40 BID . might be able to decrease to daily tomorrow - cont NEbs - cont symbicort - O2 as needed . BIpap at night was not used , will reorder - No evidence of PNA . Azithro for antiinflammatory effect day 2/3 2- Acute D CHF: crackles improved but Cr slightly improved ( BUN elevated probably due to steroids) - Cont lasix po daily , if cr cont to increase will stop 2- H/o CAD, HTN, HLP: cont BB , ARB/HCTZ, norvasc. 3- DM : hold oral agents. cont SSI 4- GI and DVT PX HLOC ASSESSMENT AND PLAN:
[2017-10-27] MEDS ORDERED: ACETAMINOPHEN 325 MG TABLET (FP) ONE (19:40)
[2017-10-27] MEDS ORDERED: ACETAMINOPHEN 325 MG TABLET (FP) PO ONE (19:45)
[2017-10-27] MEDS: MELATONIN 5 MG TABLETS PO SCH (21:38)
[2017-10-27] MEDS: GABAPENTIN 300 MG CAPSULE (FP) PO SCH (21:38)
[2017-10-27] MEDS ORDERED: amLODIPine BESYLATE 10 MG TABLET (FP) PO SCH (22:00)
[2017-10-28] MEDS: ALBUTEROL SO4 2.5/IPRATROPIUM 0.5 INH SOL 3 ML VIAL.NEB. NEB SCH ×3 (06:09→18:08)
[2017-10-28] MEDS: INSULIN SLIDING SCALE (NOVOLOG) 1 VIAL SQ SCH ×4 (06:27→21:06)
[2017-10-28 08:09] LABS: BASOPHIL 0.1 % (0-2.0); MCH 30.8 pg (25.7-33.7); MCHC 31.9 g/dl (32.0-36.0); MEAN CELL VOLUME 96.4 fl (80-96); NEUTROPHILS 86.5 % (42.8-82.8); PLATELET COUNT 236 K/MM3 (134-434); RDW 14.7 % (11.6-15.6); WHITE BLOOD COUNT 6.2 K/mm3 (4.0-10.0)
[2017-10-28 08:39] LABS: CALCIUM 10.2 mg/dL (8.5-10.1); CO2 36 mmol/L (21-32); CREATININE 0.9 mg/dL (0.55-1.02); GLUCOSE,RANDOM 197 mg/dL (74-106)
[2017-10-28 08:44] LABS: ANION GAP 4 (8-16)
--- NOTE | 2017-10-28 08:51 | PN ---
Physical Exam: SUBJECTIVE: Patient seen and examined by me this AM - Endorses improved breathing, cough, SOB. Denies fevers/chills, CP/palpitations , N/V, abdominal pain. Still with LE edema. More alert today. - No major overnight events per nursing. - Per attending, pt w/ some nonsensical speech, neologisms and tangentiality. - Complaining of HAs. Ordered for tylenol OBJECTIVE: Vital Signs Intake & Output 10/25/17 10/26/17 10/27/17 10/28/17 23:59 23:59 23:59 23:59 Intake Total 300 940 Output Total 500 Balance -200 940 Weight 81.647 kg 88.451 kg 88.451 kg 89.358 kg Period Temp Pulse Resp BP Sys/Cox Pulse Ox Last 24 Hr 98.1 F-99.4 F 70-104 19-20 110-147/66-86 95-95 GENERAL: A&Ox2. More alert today, in no acute distress. HEAD: NCAT EYES: PERRL, extraocular movements intact, sclera anicteric, conjunctiva clear. No ptosis. ENT: Ears normal, nares patent, oropharynx clear without exudates, moist mucous membranes. NECK: Trachea midline, supple. JVD noted. LUNGS: Decreased bibasilar breath sounds. Trace expiratory wheeze in upper lung louie. No accessory muscle use. HEART: 3/6 systolic ejection murmur heard best at RUSB and LUSB. Regular rate and rhythm, S1, S2 without murmur, rub or gallop. ABDOMEN: Soft, nontender, nondistended, normoactive bowel sounds, no guarding, no rebound. No suprapubic tenderness Upper EXTREMITIES: 2+ pulses, warm, well-perfused, no edema. Lower extremities: 2+ DP, PT pulses BL. 2+ pitting edema bilaterally, worse than yesterday. NEUROLOGICAL: Cranial nerves II through XII grossly intact. Normal speech, gait not observed. Psych: Pleasant, full affect. Neologisms, tangentiality intermittently Laboratory Results - last 24 hr CBC, BMP 10/28/17 06:00 10/28/17 06:00 10/26/17 10/27/17 10/27/17 06:53 12:11 18:09 WBC RBC Hgb Hct MCV MCH MCHC RDW Plt Count MPV Neutrophils % Lymphocytes % Monocytes % Eosinophils % Basophils % Sodium Potassium Chloride Carbon Dioxide Anion Gap BUN Creatinine POC Glucometer 212.34778 279 194 Random Glucose Calcium 10/27/17 10/28/17 10/28/17 21:45 05:11 06:00 WBC 6.2 RBC 3.74 Hgb 11.5 Hct 36.1 MCV 96.4 H MCH 30.8 MCHC 31.9 L RDW 14.7 Plt Count 236 MPV 9.0 Neutrophils % 86.5 H Lymphocytes % 9.4 D Monocytes % 4.0 Eosinophils % 0.0 Basophils % 0.1 Sodium Potassium Chloride Carbon Dioxide Anion Gap BUN Creatinine POC Glucometer 293 145 Random Glucose Calcium 10/28/17 06:00 WBC RBC Hgb Hct MCV MCH MCHC RDW Plt Count MPV Neutrophils % Lymphocytes % Monocytes % Eosinophils % Basophils % Sodium 138 Potassium 4.3 Chloride 98 Carbon Dioxide 36 H Anion Gap 4 L BUN 29 H Creatinine 0.9 POC Glucometer Random Glucose 197 H Calcium 10.2 H Active Medications Generic Name Dose Route Start Last Admin Trade Name Freq PRN Reason Stop Dose Admin Albuterol/Ipratropium 1 amp 10/26/17 05:28 10/28/17 06:09 Duoneb - NEB 1 amp QIDR [facility] Administration Albuterol/Ipratropium 1 amp 10/26/17 14:27 Duoneb - NEB Q4H PRN SHORTNESS OF BREATH Amlodipine Besylate 10 mg 10/27/17 22:00 10/27/17 23:25 Norvasc - PO 10 mg HS [facility] Administration Aspirin 81 mg 10/26/17 10:00 10/27/17 10:25 Asa - PO 81 mg DAILY [facility] Administration Azithromycin 500 mg 10/27/17 10:00 10/27/17 10:24 Zithromax - PO 500 mg DAILY [facility] Administration Budesonide/Formoterol Fumarate 2 puff 10/26/17 16:30 10/27/17 23:27 Symbicort 80/4.5mcg - IH 2 inh BID [facility] Administration Furosemide 20 mg 10/27/17 10:00 10/27/17 10:24 Lasix - PO 20 mg DAILY [facility] Administration Gabapentin 300 mg 10/27/17 22:00 10/27/17 21:38 Neurontin - PO 300 mg HS [facility] Administration HCTZ/Losartan Potassium 1 tab 10/26/17 13:30 10/27/17 10:24 Hyzaar - PO 1 tab DAILY [facility] Administration Heparin Sodium (Porcine) 5,000 unit 10/25/17 23:45 10/27/17 21:38 Heparin - SQ 5,000 unit BID [facility] Administration Insulin Aspart 1 vial 10/26/17 22:00 10/28/17 06:27 Novolog Vial Sliding Scale - SQ Not Given ACHS [facility] Protocol Melatonin 10 mg 10/25/17 22:15 10/27/17 21:38 Melatonin PO 10 mg HS [facility] Administration Methylprednisolone Sodium Succinate 40 mg 10/26/17 15:00 10/27/17 21:38 Solu-Medrol - IVPUSH 40 mg BID [facility] Administration Metoprolol Succinate 100 mg 10/26/17 13:30 10/27/17 10:25 Toprol Xl - PO 100 mg DAILY [facility] Administration Nicotine 7 mg 10/26/17 10:00 10/27/17 10:24 Nicoderm Patch - TD 7 mg DAILY [facility] Administration Pantoprazole Sodium 40 mg 10/26/17 10:00 10/27/17 10:24 Protonix - PO 40 mg DAILY [facility] Administration Ranolazine 500 mg 10/25/17 22:15 10/27/17 21:38 Ranexa - PO 500 mg BID [facility] Administration Risperidone 1 mg 10/26/17 20:00 10/27/17 21:38 Risperdal - PO 1 mg HS [facility] Administration No micro pending CXR 10/29 - ordered for tomorrow by pulm CXR 10/26 - BL Pleural effusions. L compressive ateclectasis EKG 10/25 - RBBB. Extreme R axis deviation. TWI in v1-v3, v6. ASSESSMENT/PLAN: 72 yo woman w/ pmh of COPD, CAD (stents in 2012), diastolic CHF, HTN, DM,, dementia, who presented to ED with progressive increased WOB/SOB after >1 week of finishing steroid taper, unresponsive to home O2/duoneb tx, satting in low 80s at home with hx of multiple admissions for COPD/CHF exacerbations. Improving on current respiratory regimen. #Acute hypoxic hypercapneic respiratory failure - AM ABG 7.36/67/61/37, minimal change on 5L O2. SOB improved since admission - O2 Tx. Maintain O2 >88%. Bipap at night. - If increasingly somnolent, hypoxic during day, escalate to BiPap and send ABG - Solumedrol 40mg BID. One more day per pulm team - F/u repeat CXR tomorrow. - Duonebs q6h, q4h PRN - Symbicort BID - Last dose of zithromax today - Pulmonology consulted. Recs appreciated - Smoking cessation #Diastolic CHF - BNP 467 on admission. ECHO 06/14/2017 - grossly normal, EF 70%. weights slowly uptrending. - Toprol xl 100mg daily, Hyzaar 1 tab. Amlodipine d/c'ed - Lasix 20mg PO daily per cardiology. Trend Cr - Ranexa BID - Cardiology consulted. Awaiting recs. - Strict Is and Os #CAD - EKG w/ RBBB, TWIs V1-3,V6, NSR. Prior stents in 2012 - ASA 81mg - Continue BB, hyzaar - Trop neg x1 (0.02) - cardiology following #Agitation/dementia - pt improved MS today, no further agitation - Continue home risperdal qHS - Haldol PRN for acute agitation #DM - BGM ACHS - ISS - Gabapentin 300mg qhs for diabetic neuropathy #HTN - Cr 1.1 -> 0.9 today. Htn to 147 sys overnight. - D/c norvasc today. Started on lisinopril 20mg given improving cr - Trend Cr #Gastric mass - Pt/family no wish for treatment/biopsy - GI consulted. Per Dr. Malone, daughter wishes for comfort care only. 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 Nutrition: Diabetic diet Plan discussed with attending, Dr. Fred Gil, PGY1 Visit type - Emergency Visit Emergency Visit: Yes ED Registration Date: 10/25/17 Care time: The patient presented to the Emergency Department on the above date and was hospitalized for further evaluation of their emergent condition. - New Patient This patient is new to me today: No - Critical Care Critical Care patient: No
[2017-10-28] MEDS ORDERED: PT OWN MED DRAWER 7, Y5N ONE (10:35)
[2017-10-28] MEDS: NICOTINE 7 MG/24 HOURS TOPICAL PATCH TD SCH (10:39)
[2017-10-28] MEDS: AZITHROMYCIN 250 MG TABLET PO SCH (10:40)
[2017-10-28] MEDS: HEPARIN NA (PORCINE) 5,000 UNITS/ML 1ML VIAL SQ SCH ×2 (10:40→21:06)
[2017-10-28] MEDS: FUROSEMIDE 20 MG TABLET (FP) PO SCH (10:40)
[2017-10-28] MEDS: METOPROLOL SUCCINATE 100 MG TAB.SR.24H (FP) PO SCH (10:40)
[2017-10-28] MEDS: LOSARTAN 50MG/HCTZ 12.5MG 1 TAB (FP) PO SCH (10:41)
[2017-10-28] MEDS: RANOLAZINE E.R. 500 MG TABLET (FP) PO SCH ×2 (10:41→21:05)
[2017-10-28] MEDS: methylPREDNISolone NA SUCC 40 MG/1 ML VIAL IVPUSH SCH ×2 (10:42→21:06)
[2017-10-28] MEDS: BUDESONIDE/FORMETEROL FUMARATE 80/4.5 mcg INHALER IH SCH ×2 (10:42→21:05)
[2017-10-28] MEDS: PANTOPRAZOLE 40 MG TABLET (FP) PO SCH (10:42)
[2017-10-28] MEDS: ASPIRIN 81 MG CHEWABLE TABLETS PO SCH (10:43)
--- NOTE | 2017-10-28 11:24 | PN ---
Progress Note, Physician History of Present Illness: Dyspnea on exertion slowly improving. - Current Medication List Current Medications: Active Medications Albuterol/Ipratropium (Duoneb -) 1 amp NEB QIDR [facility] Last Admin: 10/28/17 06:09 Dose: 1 amp Albuterol/Ipratropium (Duoneb -) 1 amp NEB Q4H PRN PRN Reason: SHORTNESS OF BREATH Amlodipine Besylate (Norvasc -) 10 mg PO HS [facility] Last Admin: 10/27/17 23:25 Dose: 10 mg Aspirin (Asa -) 81 mg PO DAILY [facility] Last Admin: 10/28/17 10:43 Dose: 81 mg Azithromycin (Zithromax -) 500 mg PO DAILY [facility] Last Admin: 10/28/17 10:40 Dose: 500 mg Budesonide/Formoterol Fumarate (Symbicort 80/4.5mcg -) 2 puff IH BID [facility] Last Admin: 10/28/17 10:42 Dose: 2 inh Furosemide (Lasix -) 20 mg PO DAILY [facility] Last Admin: 10/28/17 10:40 Dose: 20 mg Gabapentin (Neurontin -) 300 mg PO HS [facility] Last Admin: 10/27/17 21:38 Dose: 300 mg HCTZ/Losartan Potassium (Hyzaar -) 1 tab PO DAILY [facility] Last Admin: 10/28/17 10:41 Dose: 1 tab Heparin Sodium (Porcine) (Heparin -) 5,000 unit SQ BID [facility] Last Admin: 10/28/17 10:40 Dose: 5,000 unit Insulin Aspart (Novolog Vial Sliding Scale -) 1 vial SQ ACHS [facility] PRN Reason: Protocol Last Admin: 10/28/17 10:45 Dose: 6 units Melatonin (Melatonin) 10 mg PO HS [facility] Last Admin: 10/27/17 21:38 Dose: 10 mg Methylprednisolone Sodium Succinate (Solu-Medrol -) 40 mg IVPUSH BID [facility] Last Admin: 10/28/17 10:42 Dose: 40 mg Metoprolol Succinate (Toprol Xl -) 100 mg PO DAILY [facility] Last Admin: 10/28/17 10:40 Dose: 100 mg Nicotine (Nicoderm Patch -) 7 mg TD DAILY [facility] Last Admin: 10/28/17 10:39 Dose: 7 mg Pantoprazole Sodium (Protonix -) 40 mg PO DAILY [facility] Last Admin: 10/28/17 10:42 Dose: 40 mg Ranolazine (Ranexa -) 500 mg PO BID [facility] Last Admin: 10/28/17 10:41 Dose: 500 mg Risperidone (Risperdal -) 1 mg PO HS [facility] Last Admin: 10/27/17 21:38 Dose: 1 mg - Objective Vital Signs: Vital Signs Temperature 98.4 F 10/28/17 06:00 Pulse Rate 92 H 10/28/17 10:42 Respiratory Rate 20 10/28/17 06:00 Blood Pressure 110/72 10/28/17 06:00 O2 Sat by Pulse Oximetry (%) 91 L 10/28/17 10:42 Constitutional: Yes: No Distress, Calm Neck: Yes: Supple Cardiovascular: Yes: Regular Rate and Rhythm Respiratory: Yes: Regular, Diminished, On Nasal O2 Gastrointestinal: Yes: Normal Bowel Sounds, Soft, Abdomen, Obese Edema: No Labs: CBC, BMP 10/28/17 06:00 10/28/17 06:00 Problem List - Problems (1) Acute on chronic diastolic (congestive) heart failure Code(s): I50.33 - ACUTE ON CHRONIC DIASTOLIC (CONGESTIVE) HEART FAILURE (2) Acute on chronic respiratory failure with hypoxia and hypercapnia Code(s): J96.21 - ACUTE AND CHRONIC RESPIRATORY FAILURE WITH HYPOXIA; J96.22 - ACUTE AND CHRONIC RESPIRATORY FAILURE WITH HYPERCAPNIA (3) COPD exacerbation Code(s): J44.1 - CHRONIC OBSTRUCTIVE PULMONARY DISEASE W (ACUTE) EXACERBATION (4) Diabetes mellitus Code(s): E11.9 - TYPE 2 DIABETES MELLITUS WITHOUT COMPLICATIONS Qualifiers: Diabetes mellitus type: type 2 Diabetes mellitus complication status: without complication Diabetes mellitus terminal manager insulin use: without terminal manager use Qualified Code(s): E11.9 - Type 2 diabetes mellitus without complications (5) Hypertension Code(s): I10 - ESSENTIAL (PRIMARY) HYPERTENSION Qualifiers: Hypertension type: essential hypertension Qualified Code(s): I10 - Essential (primary) hypertension (6) Right bundle branch block (RBBB) Code(s): I45.10 - UNSPECIFIED RIGHT BUNDLE-BRANCH BLOCK (7) Tobacco abuse Code(s): Z72.0 - TOBACCO USE Assessment/Plan 06/14/2017 Echo: Normal LV size and fxn, abnl LV compliance, mild ao dilatation, no sig valve abnl 1. Acute on chronic hypercapenic, hypoxemic respiratory failure slowly improving 2. Acute on Chronic Diastolic Heart Failure improving 3. Acute COPD Exacerbation improving 4. Coronary artery disease with obstructive RCA and RPDA, angina pectoris 5. Hypertension/hypertensive cardiovascular disease 6. Type 2 diabetes mellitus 7. Ascending thoracic aortic aneurysm 8. History of rheumatoid arthritis 9. Right bundle branch block 10. Previous history of GI bleed 11. Tobacco abuse 12. OSAS PLAN: 1. Lasix 20 qd with monitor diuretic response, renal fxn and electrolytes 2. Continue bronchodilator, IV steroid taper, empiric abx course, O2 as needed to keep SpO2 >90%, BiPAP to assist in work of breathing 3. Continue ASA 81 qd, Metoprolol XL 100 qd, Hyzaar 1 qd, Amlodipine 10 qd and Ranexa 500 bid as tolerated 4. Continue DVT and GI prophylaxis, tobacco cessation
[2017-10-28] MEDS: ACETAMINOPHEN 325 MG TABLET (FP) PO PRN (13:50)
[2017-10-28] MEDS ORDERED: LISINOPRIL 20 MG TABLET (FP) PO ONE ×2 (14:00→16:30)
--- NOTE | 2017-10-28 15:00 | PN ---
Progress Note, Physician History of Present Illness: pulmonary alert,nad,-sob,-cp + c/o headache - Current Medication List Current Medications: Active Medications Acetaminophen (Tylenol -) 650 mg PO Q6H PRN PRN Reason: FEVER OR PAIN Last Admin: 10/28/17 13:50 Dose: 650 mg Albuterol/Ipratropium (Duoneb -) 1 amp NEB QIDR [facility] Last Admin: 10/28/17 11:36 Dose: 1 amp Albuterol/Ipratropium (Duoneb -) 1 amp NEB Q4H PRN PRN Reason: SHORTNESS OF BREATH Aspirin (Asa -) 81 mg PO DAILY [facility] Last Admin: 10/28/17 10:43 Dose: 81 mg Azithromycin (Zithromax -) 500 mg PO DAILY [facility] Last Admin: 10/28/17 10:40 Dose: 500 mg Budesonide/Formoterol Fumarate (Symbicort 80/4.5mcg -) 2 puff IH BID [facility] Last Admin: 10/28/17 10:42 Dose: 2 inh Furosemide (Lasix -) 20 mg PO DAILY [facility] Last Admin: 10/28/17 10:40 Dose: 20 mg Gabapentin (Neurontin -) 300 mg PO HS [facility] Last Admin: 10/27/17 21:38 Dose: 300 mg HCTZ/Losartan Potassium (Hyzaar -) 1 tab PO DAILY [facility] Last Admin: 10/28/17 10:41 Dose: 1 tab Heparin Sodium (Porcine) (Heparin -) 5,000 unit SQ BID [facility] Last Admin: 10/28/17 10:40 Dose: 5,000 unit Insulin Aspart (Novolog Vial Sliding Scale -) 1 vial SQ ACHS [facility] PRN Reason: Protocol Last Admin: 10/28/17 10:45 Dose: 6 units Melatonin (Melatonin) 10 mg PO HS [facility] Last Admin: 10/27/17 21:38 Dose: 10 mg Methylprednisolone Sodium Succinate (Solu-Medrol -) 40 mg IVPUSH BID [facility] Last Admin: 10/28/17 10:42 Dose: 40 mg Metoprolol Succinate (Toprol Xl -) 100 mg PO DAILY [facility] Last Admin: 10/28/17 10:40 Dose: 100 mg Nicotine (Nicoderm Patch -) 7 mg TD DAILY [facility] Last Admin: 10/28/17 10:39 Dose: 7 mg Pantoprazole Sodium (Protonix -) 40 mg PO DAILY [facility] Last Admin: 10/28/17 10:42 Dose: 40 mg Ranolazine (Ranexa -) 500 mg PO BID [facility] Last Admin: 10/28/17 10:41 Dose: 500 mg Risperidone (Risperdal -) 1 mg PO HS [facility] Last Admin: 10/27/17 21:38 Dose: 1 mg - Objective Vital Signs: Vital Signs Temperature 98.4 F 10/28/17 06:00 Pulse Rate 92 H 10/28/17 10:42 Respiratory Rate 20 10/28/17 06:00 Blood Pressure 110/72 10/28/17 06:00 O2 Sat by Pulse Oximetry (%) 91 L 10/28/17 10:42 Constitutional: Yes: Well Nourished, Calm Eyes: Yes: WNL HENT: Yes: WNL Neck: Yes: WNL Cardiovascular: Yes: Regular Rate and Rhythm, S1, S2 Respiratory: Yes: Diminished Gastrointestinal: Yes: Normal Bowel Sounds, Soft Extremities: Yes: WNL Edema: No Labs: CBC, BMP 10/28/17 06:00 10/28/17 06:00 Problem List - Problems (1) CHF (congestive heart failure) Code(s): I50.9 - HEART FAILURE, UNSPECIFIED (2) Tobacco abuse Code(s): Z72.0 - TOBACCO USE (3) Acute on chronic diastolic (congestive) heart failure Code(s): I50.33 - ACUTE ON CHRONIC DIASTOLIC (CONGESTIVE) HEART FAILURE (4) Acute on chronic respiratory failure with hypoxia and hypercapnia Code(s): J96.21 - ACUTE AND CHRONIC RESPIRATORY FAILURE WITH HYPOXIA; J96.22 - ACUTE AND CHRONIC RESPIRATORY FAILURE WITH HYPERCAPNIA (5) COPD exacerbation Code(s): J44.1 - CHRONIC OBSTRUCTIVE PULMONARY DISEASE W (ACUTE) EXACERBATION (6) Diabetes mellitus Code(s): E11.9 - TYPE 2 DIABETES MELLITUS WITHOUT COMPLICATIONS Qualifiers: Diabetes mellitus type: type 2 Diabetes mellitus complication status: without complication Diabetes mellitus custodial insulin use: without terminal supervisor use Qualified Code(s): E11.9 - Type 2 diabetes mellitus without complications (7) Hypertension Code(s): I10 - ESSENTIAL (PRIMARY) HYPERTENSION Qualifiers: Hypertension type: essential hypertension Qualified Code(s): I10 - Essential (primary) hypertension (8) Sleep apnea Code(s): G47.30 - SLEEP APNEA, UNSPECIFIED (9) Morbid obesity Code(s): E66.01 - MORBID (SEVERE) OBESITY DUE TO EXCESS CALORIES Assessment/Plan IMP ACUTE ON CHRONIC HYPOXEMIC/HYPERCAPNEIC RESPIRATORY FAILURE COPD EXACERBATION ACUTE ON CHRONIC DIASTOLIC HF HTN DM MORBID OBESITY OSAS TOBACCO ABUSE PLAN IV STEROIDS SAME DOSE INHALED BRONCHODILATORS DIURETICS O2 BIPAP AT NIGHT AND PRN F/U CHEST X-RAY ZIJORDANX DR CHRIS
[2017-10-28] MEDS: POLYETHYLENE GLYCOL 3350 119 GM BTL PO SCH (18:31)
--- NOTE | 2017-10-28 19:02 | PN ---
Teaching Attending Note Name of Resident: Renzo Gil ATTENDING PHYSICIAN STATEMENT I saw and evaluated the patient. I reviewed the resident's note and discussed the case with the resident. I agree with the resident's findings and plan as documented. SUBJECTIVE: No fever or chills. has no abd apin , SOB has improved OBJECTIVE: NAD , awake alert and cooperative CV: RRR, 3/6 SM at RUSB and LLSB. JVD Lungs: CTAB. good air entry . minimal wheezing heard Abd: soft, No tenderness . NL BS Ext: 2+ pitting edema on legs A/P : 72 y/o lady with h/o COPD exacerbation , active smoking, CAD, s/p stneting , D CHF, GAstric mass, DM , HL, GI bleed , and other medical problems who presented with SOB and was found to have acute hypoxic hypercapnic resp failure 1- Acute hypoxic hypercapnic resp failure 2/2 acute COPD exacerbation and possible acute Diastolic CHF . - cont steroids 40 BID . - cont NEbs - cont symbicort - O2 as needed . BIpap at night - last day of azithro 2- Acute D CHF: - Cont lasix po daily 2- H/o CAD, HTN, HLP: cont BB , ARB/HCTZ, change norvasc to lisinopril as she is diabetic 3- DM : hold oral agents. cont SSI 4- GI and DVT PX HLOC
[2017-10-28] MEDS: MELATONIN 5 MG TABLETS PO SCH (21:04)
[2017-10-28] MEDS: GABAPENTIN 300 MG CAPSULE (FP) PO SCH (21:05)
[2017-10-28] MEDS: risperiDONE 1 MG TABLET (FP) PO SCH (21:05)
[2017-10-29] MEDS: ALBUTEROL SO4 2.5/IPRATROPIUM 0.5 INH SOL 3 ML VIAL.NEB. NEB SCH ×4 (00:12→18:05)
[2017-10-29] MEDS: INSULIN SLIDING SCALE (NOVOLOG) 1 VIAL SQ SCH ×4 (06:30→21:14)
[2017-10-29 08:10] LABS: MCH 30.6 pg (25.7-33.7); MCHC 31.6 g/dl (32.0-36.0); MEAN CELL VOLUME 96.9 fl (80-96); MEAN PLT VOLUME 9.1 fl (7.5-11.1); PLATELET COUNT 242 K/MM3 (134-434); RDW 14.1 % (11.6-15.6); WHITE BLOOD COUNT 5.6 K/mm3 (4.0-10.0)
[2017-10-29 08:22] LABS: ANION GAP 5 (8-16); CALCIUM 10.8 mg/dL (8.5-10.1); CO2 37 mmol/L (21-32); CREATININE 0.8 mg/dL (0.55-1.02); GLUCOSE,RANDOM 215 mg/dL (74-106)
[2017-10-29] MEDS: ACETAMINOPHEN 325 MG TABLET (FP) PO PRN ×3 (08:39→22:55)
--- NOTE | 2017-10-29 09:37 | PN ---
Physical Exam: SUBJECTIVE: Patient seen and examined by me - No major overnight events. Pt amicable with staff, improved MS. - Daughter counseled yesterday about plan for discharge soon. States she is able to take her home if needed, given her improved MS - Denies any fevers/chills. Endorses improved breathing and mildly improved cough. Feels better OBJECTIVE: Vital Signs Intake & Output 10/26/17 10/27/17 10/28/17 10/29/17 23:59 23:59 23:59 23:59 Intake Total 300 940 300 Output Total 500 Balance -200 940 300 Weight 88.451 kg 88.451 kg 89.358 kg 90.378 kg Period Temp Pulse Resp BP Sys/Cox Pulse Ox Last 24 Hr 97.7 F-98.6 F 80-96 18-20 113-144/69-84 91-96 GENERAL: A&Ox2. More alert today, in no acute distress. HEAD: NCAT EYES: PERRL, extraocular movements intact, conjunctiva clear. No ptosis. ENT: Ears normal, nares patent, oropharynx clear without exudates, moist mucous membranes. NECK: Trachea midline, supple. JVD noted. LUNGS: CTAB. Trace expiratory wheeze in upper lung louie. No accessory muscle use. HEART: 3/6 systolic ejection murmur heard best at RUSB and LUSB. Regular rate and rhythm, S1, S2 without murmur, rub or gallop. ABDOMEN: Soft, nontender, nondistended, normoactive bowel sounds, no guarding, no rebound. No suprapubic tenderness Upper EXTREMITIES: 2+ pulses, warm, well-perfused, no edema. Lower extremities: 2+ DP, PT pulses BL. 2+ pitting edema bilaterally, worse than yesterday. NEUROLOGICAL: Cranial nerves II through XII grossly intact. Normal speech, gait not observed. Psych: Pleasant, mildly tangential Laboratory Results - last 24 hr CBC, BMP 10/29/17 06:00 10/29/17 06:00 10/28/17 10/28/17 10/28/17 10:37 16:41 20:50 WBC RBC Hgb Hct MCV MCH MCHC RDW Plt Count MPV Sodium Potassium Chloride Carbon Dioxide Anion Gap BUN Creatinine POC Glucometer 266 303 336 Random Glucose Calcium 10/29/17 10/29/17 10/29/17 06:00 06:00 06:25 WBC 5.6 RBC 3.74 Hgb 11.4 Hct 36.2 MCV 96.9 H MCH 30.6 MCHC 31.6 L RDW 14.1 Plt Count 242 MPV 9.1 Sodium 141 Potassium 4.4 Chloride 99 Carbon Dioxide 37 H Anion Gap 5 L BUN 23 H D Creatinine 0.8 POC Glucometer 210 Random Glucose 215 H Calcium 10.8 H Active Medications Generic Name Dose Route Start Last Admin Trade Name Freq PRN Reason Stop Dose Admin Acetaminophen 650 mg 10/28/17 11:56 10/29/17 08:39 Tylenol - PO 650 mg Q6H PRN Administration FEVER OR PAIN Albuterol/Ipratropium 1 amp 10/26/17 05:28 10/29/17 07:00 Duoneb - NEB Not Given QIDR IV[facility] Albuterol/Ipratropium 1 amp 10/26/17 14:27 Duoneb - NEB Q4H PRN SHORTNESS OF BREATH Aspirin 81 mg 10/26/17 10:00 10/28/17 10:43 Asa - PO 81 mg DAILY [facility] Administration Budesonide/Formoterol Fumarate 2 puff 10/26/17 16:30 10/28/17 21:05 Symbicort 80/4.5mcg - IH 2 inh BID [facility] Administration Furosemide 20 mg 10/27/17 10:00 10/28/17 10:40 Lasix - PO 20 mg DAILY [facility] Administration Gabapentin 300 mg 10/27/17 22:00 10/28/17 21:05 Neurontin - PO 300 mg HS [facility] Administration HCTZ/Losartan Potassium 1 tab 10/26/17 13:30 10/28/17 10:41 Hyzaar - PO 1 tab DAILY [facility] Administration Heparin Sodium (Porcine) 5,000 unit 10/25/17 23:45 10/28/17 21:06 Heparin - SQ 5,000 unit BID [facility] Administration Insulin Aspart 1 vial 10/26/17 22:00 10/29/17 06:30 Novolog Vial Sliding Scale - SQ 4 units ACHS [facility] Administration Protocol Melatonin 10 mg 10/25/17 22:15 10/28/17 21:04 Melatonin PO 10 mg HS [facility] Administration Methylprednisolone Sodium Succinate 40 mg 10/26/17 15:00 10/28/17 21:06 Solu-Medrol - IVPUSH 40 mg BID [facility] Administration Metoprolol Succinate 100 mg 10/26/17 13:30 10/28/17 10:40 Toprol Xl - PO 100 mg DAILY [facility] Administration Nicotine 7 mg 10/26/17 10:00 10/28/17 10:39 Nicoderm Patch - TD 7 mg DAILY [facility] Administration Pantoprazole Sodium 40 mg 10/26/17 10:00 10/28/17 10:42 Protonix - PO 40 mg DAILY [facility] Administration Polyethylene Glycol 17 gm 10/28/17 18:00 10/28/17 18:31 Miralax (For Daily Use) - PO 17 grams DAILY [facility] Administration Ranolazine 500 mg 10/25/17 22:15 10/28/17 21:05 Ranexa - PO 500 mg BID [facility] Administration Risperidone 1 mg 10/26/17 20:00 10/28/17 21:05 Risperdal - PO 1 mg HS [facility] Administration No micro pending CXR 10/29 - Decreased congestion. Improved. CXR 10/26 - BL Pleural effusions. L compressive ateclectasis EKG 10/25 - RBBB. Extreme R axis deviation. TWI in v1-v3, v6. ASSESSMENT/PLAN: 72 yo woman w/ pmh of COPD, CAD (stents in 2012), diastolic CHF, HTN, DM,, dementia, who presented to ED with progressive increased WOB/SOB after >1 week of finishing steroid taper, unresponsive to home O2/duoneb tx, satting in low 80s at home with hx of multiple admissions for COPD/CHF exacerbations. Continues to improve. Likely d/c home with daughter tomorrow. #Acute hypoxic hypercapneic respiratory failure - AM ABG 7.36/67/61/37, minimal change on 4L O2 on admission. SOB improved significantly - O2 Tx. Maintain O2 >88%. Bipap at night. - If increasingly somnolent, hypoxic during day, escalate to BiPap and send ABG - Medrol decreased to 40mg daily - CXR improved - Duonebs q6h, q4h PRN - Symbicort BID - Finished course of zitrhomax 10/28 - Pulmonology consulted. Recs appreciated - Smoking cessation #Diastolic CHF - BNP 467 on admission. ECHO 06/14/2017 - grossly normal, EF 70%. weights slowly uptrending. - Toprol xl 100mg daily, Hyzaar 1 tab. Amlodipine d/c'ed - Lasix 20mg PO daily per cardiology. Trend Cr - Ranexa BID - Cardiology consulted. Awaiting recs. - Strict Is and Os #CAD - EKG w/ RBBB, TWIs V1-3,V6, NSR. Prior stents in 2012 - ASA 81mg - Continue BB, hyzaar - Trop neg x1 (0.02) - cardiology following #Agitation/dementia - pt improved MS today, no further agitation - Continue home risperdal qHS - Haldol PRN for acute agitation #DM - BGM ACHS - ISS - Gabapentin 300mg qhs for diabetic neuropathy #HTN - Cr 0.9 -> 0.8 today. BP moderate well controlled, BP 140s systolic overnight -lisinopril 20mg daily. Cr 0.8 today - Trend Cr #Gastric mass - Pt/family no wish for treatment/biopsy - GI consulted. Per Dr. Malone, daughter wishes for comfort care only. No procedures - Prior elevated CEA #GERD -PPI #OLIVO - Tylenol 650 Q6h PRN #nicotine dependence - Nicoderm patch - Picture Enlarger on smoking cessation #PPX Heparin subQ FEN: Fluids: Limit PO intake Electrolytes: Daily BMPs, monitor BUN/Cr. Nutrition: Diabetic diet Plan discussed with attending, Dr. Fred Gil, PGY1 Visit type - Emergency Visit Emergency Visit: Yes ED Registration Date: 10/25/17 Care time: The patient presented to the Emergency Department on the above date and was hospitalized for further evaluation of their emergent condition. - New Patient This patient is new to me today: No - Critical Care Critical Care patient: No
[2017-10-29] MEDS ORDERED: PT OWN MED DRAWER 7, Y5N ONE (09:48)
[2017-10-29] MEDS: ASPIRIN 81 MG CHEWABLE TABLETS PO SCH (09:52)
[2017-10-29] MEDS: LOSARTAN 50MG/HCTZ 12.5MG 1 TAB (FP) PO SCH (09:52)
[2017-10-29] MEDS: HEPARIN NA (PORCINE) 5,000 UNITS/ML 1ML VIAL SQ SCH ×2 (09:52→21:13)
[2017-10-29] MEDS: FUROSEMIDE 20 MG TABLET (FP) PO SCH (09:52)
[2017-10-29] MEDS: NICOTINE 7 MG/24 HOURS TOPICAL PATCH TD SCH (09:53)
[2017-10-29] MEDS: PANTOPRAZOLE 40 MG TABLET (FP) PO SCH (09:53)
[2017-10-29] MEDS: RANOLAZINE E.R. 500 MG TABLET (FP) PO SCH ×2 (09:53→21:12)
[2017-10-29] MEDS: METOPROLOL SUCCINATE 100 MG TAB.SR.24H (FP) PO SCH (09:54)
[2017-10-29] MEDS: methylPREDNISolone NA SUCC 40 MG/1 ML VIAL IVPUSH SCH ×2 (09:54→21:13)
[2017-10-29] MEDS: BUDESONIDE/FORMETEROL FUMARATE 80/4.5 mcg INHALER IH SCH ×2 (09:54→21:13)
[2017-10-29] MEDS: POLYETHYLENE GLYCOL 3350 119 GM BTL PO SCH (09:55)
[2017-10-29] MEDS ORDERED: INSULIN (NOVOLOG) ASPART 100 UNITS/ML 10ML VIAL ONE ×3 (12:48→20:17)
--- NOTE | 2017-10-29 14:29 | PN ---
Progress Note, Physician History of Present Illness: pulmonary alert,nad,-c/o sob,-cp,-cough - Current Medication List Current Medications: Active Medications Acetaminophen (Tylenol -) 650 mg PO Q6H PRN PRN Reason: FEVER OR PAIN Last Admin: 10/29/17 08:39 Dose: 650 mg Albuterol/Ipratropium (Duoneb -) 1 amp NEB QIDR [facility] Last Admin: 10/29/17 11:30 Dose: 1 amp Albuterol/Ipratropium (Duoneb -) 1 amp NEB Q4H PRN PRN Reason: SHORTNESS OF BREATH Aspirin (Asa -) 81 mg PO DAILY [facility] Last Admin: 10/29/17 09:52 Dose: 81 mg Budesonide/Formoterol Fumarate (Symbicort 80/4.5mcg -) 2 puff IH BID [facility] Last Admin: 10/29/17 09:54 Dose: 2 inh Furosemide (Lasix -) 20 mg PO DAILY [facility] Last Admin: 10/29/17 09:52 Dose: 20 mg Gabapentin (Neurontin -) 300 mg PO HS [facility] Last Admin: 10/28/17 21:05 Dose: 300 mg HCTZ/Losartan Potassium (Hyzaar -) 1 tab PO DAILY [facility] Last Admin: 10/29/17 09:52 Dose: 1 tab Heparin Sodium (Porcine) (Heparin -) 5,000 unit SQ BID [facility] Last Admin: 10/29/17 09:52 Dose: 5,000 unit Insulin Aspart (Novolog Vial Sliding Scale -) 1 vial SQ ACHS [facility] PRN Reason: Protocol Last Admin: 10/29/17 12:52 Dose: 4 units Melatonin (Melatonin) 10 mg PO HS [facility] Last Admin: 10/28/17 21:04 Dose: 10 mg Methylprednisolone Sodium Succinate (Solu-Medrol -) 40 mg IVPUSH BID [facility] Last Admin: 10/29/17 09:54 Dose: 40 mg Metoprolol Succinate (Toprol Xl -) 100 mg PO DAILY [facility] Last Admin: 10/29/17 09:54 Dose: 100 mg Nicotine (Nicoderm Patch -) 7 mg TD DAILY [facility] Last Admin: 10/29/17 09:53 Dose: 7 mg Pantoprazole Sodium (Protonix -) 40 mg PO DAILY [facility] Last Admin: 10/29/17 09:53 Dose: 40 mg Polyethylene Glycol (Miralax (For Daily Use) -) 17 gm PO DAILY [facility] Last Admin: 10/29/17 09:55 Dose: 17 grams Ranolazine (Ranexa -) 500 mg PO BID [facility] Last Admin: 10/29/17 09:53 Dose: 500 mg Risperidone (Risperdal -) 1 mg PO HS [facility] Last Admin: 10/28/17 21:05 Dose: 1 mg - Objective Vital Signs: Vital Signs Temperature 98.3 F 10/29/17 08:00 Pulse Rate 82 10/29/17 11:30 Respiratory Rate 22 10/29/17 08:00 Blood Pressure 136/74 10/29/17 08:00 O2 Sat by Pulse Oximetry (%) 93 L 10/29/17 11:30 Constitutional: Yes: Well Nourished, Calm Eyes: Yes: WNL HENT: Yes: WNL Neck: Yes: WNL Cardiovascular: Yes: Regular Rate and Rhythm, S1, S2 Respiratory: Yes: Diminished Gastrointestinal: Yes: Normal Bowel Sounds, Soft Extremities: Yes: WNL Edema: No Labs: CBC, BMP 10/29/17 06:00 10/29/17 06:00 Problem List - Problems (1) CHF (congestive heart failure) Code(s): I50.9 - HEART FAILURE, UNSPECIFIED (2) Tobacco abuse Code(s): Z72.0 - TOBACCO USE (3) Acute on chronic diastolic (congestive) heart failure Code(s): I50.33 - ACUTE ON CHRONIC DIASTOLIC (CONGESTIVE) HEART FAILURE (4) Acute on chronic respiratory failure with hypoxia and hypercapnia Code(s): J96.21 - ACUTE AND CHRONIC RESPIRATORY FAILURE WITH HYPOXIA; J96.22 - ACUTE AND CHRONIC RESPIRATORY FAILURE WITH HYPERCAPNIA (5) COPD exacerbation Code(s): J44.1 - CHRONIC OBSTRUCTIVE PULMONARY DISEASE W (ACUTE) EXACERBATION (6) Diabetes mellitus Code(s): E11.9 - TYPE 2 DIABETES MELLITUS WITHOUT COMPLICATIONS Qualifiers: Diabetes mellitus type: type 2 Diabetes mellitus complication status: without complication Diabetes mellitus terminal block assembler insulin use: without terminal block assembler use Qualified Code(s): E11.9 - Type 2 diabetes mellitus without complications (7) Hypertension Code(s): I10 - ESSENTIAL (PRIMARY) HYPERTENSION Qualifiers: Hypertension type: essential hypertension Qualified Code(s): I10 - Essential (primary) hypertension (8) Sleep apnea Code(s): G47.30 - SLEEP APNEA, UNSPECIFIED (9) Morbid obesity Code(s): E66.01 - MORBID (SEVERE) OBESITY DUE TO EXCESS CALORIES Assessment/Plan IMP ACUTE ON CHRONIC HYPOXEMIC/HYPERCAPNEIC RESPIRATORY FAILURE IMPROVING COPD EXACERBATION IMPROVING ACUTE ON CHRONIC DIASTOLIC HF HTN DM MORBID OBESITY OSAS TOBACCO ABUSE PLAN STEROID TAPER LASIX PO INHALED BRONCHODILATORS O2 BIPAP AT NIGHT AND PRN DR CHRIS
--- NOTE | 2017-10-29 16:15 | PN ---
Progress Note (short form) - Note Progress Note: Chief Complaint: Events noted, noted reviewed. denies any chest discomfort, dyspnea improved but not resolved History of Present Illness: Seen and examined. Events noted, noted reviewed. denies any chest discomfort, dyspnea improved but not resolved Echocardiography performed 06/14/2017 revealed Normal LV size and function, abnormal left ventricular compliance, mild aortic dilatation And no significant valve abnormality - Current Medication List Current Medications Acetaminophen (Tylenol -) 650 mg PO Q6H PRN PRN Reason: FEVER OR PAIN Last Admin: 10/29/17 15:50 Dose: 650 mg Albuterol/Ipratropium (Duoneb -) 1 amp NEB QIDR [facility] Last Admin: 10/29/17 11:30 Dose: 1 amp Albuterol/Ipratropium (Duoneb -) 1 amp NEB Q4H PRN PRN Reason: SHORTNESS OF BREATH Aspirin (Asa -) 81 mg PO DAILY [facility] Last Admin: 10/29/17 09:52 Dose: 81 mg Budesonide/Formoterol Fumarate (Symbicort 80/4.5mcg -) 2 puff IH BID [facility] Last Admin: 10/29/17 09:54 Dose: 2 inh Furosemide (Lasix -) 20 mg PO DAILY [facility] Last Admin: 10/29/17 09:52 Dose: 20 mg Gabapentin (Neurontin -) 300 mg PO HS [facility] Last Admin: 10/28/17 21:05 Dose: 300 mg HCTZ/Losartan Potassium (Hyzaar -) 1 tab PO DAILY [facility] Last Admin: 10/29/17 09:52 Dose: 1 tab Heparin Sodium (Porcine) (Heparin -) 5,000 unit SQ BID [facility] Last Admin: 10/29/17 09:52 Dose: 5,000 unit Insulin Aspart (Novolog Vial Sliding Scale -) 1 vial SQ ACHS [facility] PRN Reason: Protocol Last Admin: 10/29/17 12:52 Dose: 4 units Melatonin (Melatonin) 10 mg PO HS [facility] Last Admin: 10/28/17 21:04 Dose: 10 mg Methylprednisolone Sodium Succinate (Solu-Medrol -) 40 mg IVPUSH BID [facility] Stop: 10/29/17 22:00 Last Admin: 10/29/17 09:54 Dose: 40 mg Methylprednisolone Sodium Succinate (Solu-Medrol -) 40 mg IVPUSH DAILY [facility] Metoprolol Succinate (Toprol Xl -) 100 mg PO DAILY [facility] Last Admin: 10/29/17 09:54 Dose: 100 mg Nicotine (Nicoderm Patch -) 7 mg TD DAILY [facility] Last Admin: 10/29/17 09:53 Dose: 7 mg Pantoprazole Sodium (Protonix -) 40 mg PO DAILY [facility] Last Admin: 10/29/17 09:53 Dose: 40 mg Polyethylene Glycol (Miralax (For Daily Use) -) 17 gm PO DAILY [facility] Last Admin: 10/29/17 09:55 Dose: 17 grams Ranolazine (Ranexa -) 500 mg PO BID [facility] Last Admin: 10/29/17 09:53 Dose: 500 mg Risperidone (Risperdal -) 1 mg PO HS [facility] Last Admin: 10/28/17 21:05 Dose: 1 mg - Objective Vital Signs: Last Vital Signs Temp Pulse Resp BP Pulse Ox 98.6 F 85 20 144/76 93 L 10/29/17 15:09 10/29/17 15:09 10/29/17 15:09 10/29/17 15:09 10/29/17 11:30 Intake & Output 10/26/17 10/27/17 10/28/17 10/29/17 23:59 23:59 23:59 23:59 Intake Total 300 940 300 200 Output Total 500 Balance -200 940 300 200 Weight 195 lb 195 lb 197 lb 199 lb 4 oz Constitutional: No Distress, Calm, Thin Neck: Supple Negative JVD Respiratory: Diminished Breath Sounds at the Bases Cardiovascular: S1 S2 Regular Rate and Rhythm Grade 1-2/6 systolic ejection murmur Gastrointestinal: Soft Benign Normal Bowel Sounds Ext: No Edema Labs: CBC, BMP 10/29/17 06:00 10/29/17 06:00 Hepatic Panel Total Bilirubin 0.4 mg/dL (0.2-1.0) D 10/25/17 20:28 AST 9 U/L (15-37) L D 10/25/17 20:28 ALT 19 U/L (12-78) D 10/25/17 20:28 Alkaline Phosphatase 91 U/L (45-117) 10/25/17 20:28 Albumin 3.1 g/dl (3.4-5.0) L 10/25/17 20:28 Assessment/Plan ASSESSMENT: 1. Acute on chronic hypercapenic, hypoxemic respiratory failure related to acute COPD exacerbation, resolving 2. Acute on Chronic Class I-II [place] [employer] classification left ventricular failure related to diastolic left ventricular dysfunction, resolving 3. Coronary artery disease angina pectoris 4. Hypertension/hypertensive cardiovascular disease 5. Diabetes mellitus 6. Hypercholesterolemia 7. Ascending thoracic aortic aneurysm 8. Complete right bundle branch block 9. History of obstructive sleep apnea 10. History of rheumatoid arthritis 11. Previous history of GI bleed 12. Tobacco abuse PLAN: 1. Continue Lasix therapy with close monitoring of renal function 2. Continue Hyzaar therapy 3. Continue Toprol-XL therapy 4. Continue Ranexa therapy 5. Continue Aspirin therapy 6. Continue bronchodilator and steroid therapy as per pulmonary service 7. Patient was strongly counseled tobacco abuse cessation Karina Krishnan M.D.
--- NOTE | 2017-10-29 17:48 | PN ---
Teaching Attending Note Name of Resident: Renzo Gil ATTENDING PHYSICIAN STATEMENT I saw and evaluated the patient. I reviewed the resident's note and discussed the case with the resident. I agree with the resident's findings and plan as documented. SUBJECTIVE: no fever or chills. has no abd apin. no SOB OBJECTIVE: NAD , awake alert and cooperative CV: RRR, 3/6 SM at RUSB and LLSB. JVD Lungs: CTAB. good air entry . minimal wheezing heard Abd: soft, No tenderness . NL BS Ext: 2+ pitting edema on legs A/P : 72 y/o lady with h/o COPD exacerbation , active smoking, CAD, s/p stneting , D CHF, GAstric mass, DM , HL, GI bleed , and other medical problems who presented with SOB and was found to have acute hypoxic hypercapnic resp failure 1- Acute hypoxic hypercapnic resp failure 2/2 acute COPD exacerbation and possible acute Diastolic CHF . - decrease steroids to 40 daily - cont NEbs - cont symbicort - O2 as needed . did not use BIPAP at night 2- Acute D CHF: - Cont lasix po daily 2- H/o CAD, HTN, HLP: cont BB , ARB/HCTZ, and lisinopril 3- DM : hold oral agents. cont SSI 4- GI and DVT PX HLOC
[2017-10-29] MEDS: MELATONIN 5 MG TABLETS PO SCH (21:11)
[2017-10-29] MEDS: GABAPENTIN 300 MG CAPSULE (FP) PO SCH (21:12)
[2017-10-29] MEDS: risperiDONE 1 MG TABLET (FP) PO SCH (21:12)
[2017-10-30] MEDS: ALBUTEROL SO4 2.5/IPRATROPIUM 0.5 INH SOL 3 ML VIAL.NEB. NEB SCH ×5 (00:10→23:53)
[2017-10-30] MEDS: INSULIN SLIDING SCALE (NOVOLOG) 1 VIAL SQ SCH ×4 (07:59→21:52)
[2017-10-30] MEDS: ACETAMINOPHEN 325 MG TABLET (FP) PO PRN ×2 (08:09→20:03)
[2017-10-30 08:32] LABS: MCH 30.9 pg (25.7-33.7); MCHC 32.4 g/dl (32.0-36.0); MEAN CELL VOLUME 95.4 fl (80-96); MEAN PLT VOLUME 8.9 fl (7.5-11.1); PLATELET COUNT 273 K/MM3 (134-434); RDW 14.1 % (11.6-15.6); WHITE BLOOD COUNT 6.1 K/mm3 (4.0-10.0)
[2017-10-30 08:47] LABS: ANION GAP 5 (8-16); CALCIUM 10.7 mg/dL (8.5-10.1); CO2 34 mmol/L (21-32); GLUCOSE,RANDOM 266 mg/dL (74-106)
[2017-10-30] MEDS ORDERED: PT OWN MED DRAWER 7, Y5N ONE ×5 (09:30→21:55)
[2017-10-30] MEDS: HEPARIN NA (PORCINE) 5,000 UNITS/ML 1ML VIAL SQ SCH ×2 (10:28→21:51)
[2017-10-30] MEDS: ASPIRIN 81 MG CHEWABLE TABLETS PO SCH (10:30)
[2017-10-30] MEDS: methylPREDNISolone NA SUCC 40 MG/1 ML VIAL IVPUSH SCH (10:30)
[2017-10-30] MEDS: FUROSEMIDE 20 MG TABLET (FP) PO SCH (10:30)
[2017-10-30] MEDS: METOPROLOL SUCCINATE 100 MG TAB.SR.24H (FP) PO SCH (10:30)
[2017-10-30] MEDS: PANTOPRAZOLE 40 MG TABLET (FP) PO SCH (10:30)
[2017-10-30] MEDS: RANOLAZINE E.R. 500 MG TABLET (FP) PO SCH ×2 (10:31→21:52)
[2017-10-30] MEDS: LOSARTAN 50MG/HCTZ 12.5MG 1 TAB (FP) PO SCH (10:31)
[2017-10-30] MEDS: POLYETHYLENE GLYCOL 3350 119 GM BTL PO SCH (10:31)
[2017-10-30] MEDS: BUDESONIDE/FORMETEROL FUMARATE 80/4.5 mcg INHALER IH SCH ×2 (10:35→22:12)
[2017-10-30] MEDS: amLODIPine BESYLATE 10 MG TABLET (FP) PO SCH (10:35)
[2017-10-30] MEDS: NICOTINE 7 MG/24 HOURS TOPICAL PATCH TD SCH (10:38)
--- NOTE | 2017-10-30 11:44 | PN ---
Progress Note (short form) - Note Progress Note: Chief Complaint: Events noted, noted reviewed. denies any chest discomfort, dyspnea improved but not resolved, hallucinations reported last night, daughter at the bedside History of Present Illness: Seen and examined. Events noted, noted reviewed. denies any chest discomfort, dyspnea improved but not resolved, hallucinations reported last night, daughter at the bedside Echocardiography performed 06/14/2017 revealed Normal LV size and function, abnormal left ventricular compliance, mild aortic dilatation And no significant valve abnormality - Current Medication List Current Medications Acetaminophen (Tylenol -) 650 mg PO Q6H PRN PRN Reason: FEVER OR PAIN Last Admin: 10/30/17 08:09 Dose: 650 mg Albuterol/Ipratropium (Duoneb -) 1 amp NEB QIDR [facility] Last Admin: 10/30/17 07:05 Dose: 1 amp Albuterol/Ipratropium (Duoneb -) 1 amp NEB Q4H PRN PRN Reason: SHORTNESS OF BREATH Amlodipine Besylate (Norvasc -) 10 mg PO DAILY [facility] Last Admin: 10/30/17 10:35 Dose: 10 mg Aspirin (Asa -) 81 mg PO DAILY [facility] Last Admin: 10/30/17 10:30 Dose: 81 mg Budesonide/Formoterol Fumarate (Symbicort 80/4.5mcg -) 2 puff IH BID [facility] Last Admin: 10/30/17 10:35 Dose: 2 inh Furosemide (Lasix -) 20 mg PO DAILY [facility] Last Admin: 10/30/17 10:30 Dose: 20 mg Gabapentin (Neurontin -) 300 mg PO HS [facility] Last Admin: 10/29/17 21:12 Dose: 300 mg HCTZ/Losartan Potassium (Hyzaar -) 1 tab PO DAILY [facility] Last Admin: 10/30/17 10:31 Dose: 1 tab Heparin Sodium (Porcine) (Heparin -) 5,000 unit SQ BID [facility] Last Admin: 10/30/17 10:28 Dose: 5,000 unit Insulin Aspart (Novolog Vial Sliding Scale -) 1 vial SQ ACHS [facility] PRN Reason: Protocol Last Admin: 10/30/17 11:40 Dose: 6 units Melatonin (Melatonin) 10 mg PO HS [facility] Last Admin: 10/29/17 21:11 Dose: 10 mg Methylprednisolone Sodium Succinate (Solu-Medrol -) 40 mg IVPUSH DAILY [facility] Last Admin: 10/30/17 10:30 Dose: 40 mg Metoprolol Succinate (Toprol Xl -) 100 mg PO DAILY [facility] Last Admin: 10/30/17 10:30 Dose: 100 mg Nicotine (Nicoderm Patch -) 7 mg TD DAILY [facility] Last Admin: 10/30/17 10:38 Dose: 7 mg Pantoprazole Sodium (Protonix -) 40 mg PO DAILY [facility] Last Admin: 10/30/17 10:30 Dose: 40 mg Polyethylene Glycol (Miralax (For Daily Use) -) 17 gm PO DAILY [facility] Last Admin: 10/30/17 10:31 Dose: 17 grams Ranolazine (Ranexa -) 500 mg PO BID [facility] Last Admin: 10/30/17 10:31 Dose: 500 mg Risperidone (Risperdal -) 1 mg PO HS [facility] Last Admin: 10/29/17 21:12 Dose: 1 mg - Objective Vital Signs: Last Vital Signs Temp Pulse Resp BP Pulse Ox 99.0 F 80 18 152/81 93 L 10/30/17 10:00 10/30/17 10:00 10/30/17 10:00 10/30/17 10:00 10/29/17 21:00 Intake & Output 10/27/17 10/28/17 10/29/17 10/30/17 23:59 23:59 23:59 23:59 Intake Total 940 300 350 Balance 940 300 350 Weight 195 lb 197 lb 199 lb 4 oz Constitutional: No Distress, Calm, Thin Neck: Supple Negative JVD Respiratory: Diminished Breath Sounds at the Bases Cardiovascular: S1 S2 Regular Rate and Rhythm Grade 1-2/6 systolic ejection murmur Gastrointestinal: Soft Benign Normal Bowel Sounds Ext: No Edema Labs: CBC, BMP 10/30/17 06:00 10/30/17 06:00 Assessment/Plan ASSESSMENT: 1. Acute on chronic hypercapenic, hypoxemic respiratory failure related to acute COPD exacerbation, resolving 2. Acute on Chronic Class I-II [place] [employer] classification left ventricular failure related to diastolic left ventricular dysfunction, resolving 3. Coronary artery disease angina pectoris 4. Hypertension/hypertensive cardiovascular disease 5. Diabetes mellitus 6. Hypercholesterolemia 7. Ascending thoracic aortic aneurysm 8. Complete right bundle branch block 9. History of obstructive sleep apnea 10. History of rheumatoid arthritis 11. Prior history of GI bleed 12. Prior history of tobacco abuse PLAN: 1. Continue Lasix therapy with close monitoring of renal function 2. Continue Hyzaar therapy 3. Continue Toprol-XL therapy 4. Continue Ranexa therapy 5. Continue Aspirin therapy 6. Continue bronchodilator and steroid therapy as per pulmonary service 7. D/C home as per the primary team and F/U in the office Karina Krishnan M.D.
--- NOTE | 2017-10-30 15:32 | PN ---
Progress Note (short form) - Note Progress Note: Subjective: feels better Objective: Vital Signs: Last Vital Signs Temp Pulse Resp BP Pulse Ox 98.6 F 79 18 144/76 92 L 10/30/17 14:00 10/30/17 14:00 10/30/17 14:00 10/30/17 14:00 10/30/17 11:45 Laboratory Results - last 24 hr 10/29/17 10/29/17 10/30/17 16:43 20:15 05:44 WBC RBC Hgb Hct MCV MCH MCHC RDW Plt Count MPV Sodium Potassium Chloride Carbon Dioxide Anion Gap BUN Creatinine POC Glucometer 261 316 258 Random Glucose Calcium 10/30/17 10/30/17 10/30/17 06:00 06:00 11:36 WBC 6.1 RBC 4.06 Hgb 12.6 D Hct 38.8 MCV 95.4 MCH 30.9 MCHC 32.4 RDW 14.1 Plt Count 273 MPV 8.9 Sodium 138 Potassium 4.2 Chloride 99 Carbon Dioxide 34 H Anion Gap 5 L BUN 23 H Creatinine 1.0 D POC Glucometer 265 Random Glucose 266 H D Calcium 10.7 H Physical Exam: NAD , awake alert and cooperative CV: RRR, 3/6 SM at RUSB and LLSB. JVD Lungs: CTAB. good air entry . minimal wheezing heard Abd: soft, No tenderness . NL BS Ext: 2+ pitting edema on legs A/P : 72 y/o lady with h/o COPD exacerbation , active smoking, CAD, s/p stneting , D CHF, GAstric mass, DM , HL, GI bleed , and other medical problems who presented with SOB and was found to have acute hypoxic hypercapnic resp failure 1- Acute hypoxic hypercapnic resp failure 2/2 acute COPD exacerbation and possible acute Diastolic CHF . - cont steroids . possible switch to po tomorrow - cont NEbs - cont symbicort 2- Acute D CHF: - Cont lasix po daily 2- H/o CAD, HTN, HLP: cont BB , ARB/HCTZ, and Norvasc 3- DM : hold oral agents. cont SSI 4- GI and DVT PX HLOC . possible dc home tomorrow Visit type - Emergency Visit Emergency Visit: Yes ED Registration Date: 10/25/17 Care time: The patient presented to the Emergency Department on the above date and was hospitalized for further evaluation of their emergent condition. - New Patient This patient is new to me today: No - Critical Care Critical Care patient: No
--- NOTE | 2017-10-30 16:08 | PN ---
Progress Note, Physician History of Present Illness: pulmonary alert,nad,-sob,-cough - Current Medication List Current Medications: Active Medications Acetaminophen (Tylenol -) 650 mg PO Q6H PRN PRN Reason: FEVER OR PAIN Last Admin: 10/30/17 08:09 Dose: 650 mg Albuterol/Ipratropium (Duoneb -) 1 amp NEB QIDR [facility] Last Admin: 10/30/17 11:46 Dose: 1 amp Albuterol/Ipratropium (Duoneb -) 1 amp NEB Q4H PRN PRN Reason: SHORTNESS OF BREATH Amlodipine Besylate (Norvasc -) 10 mg PO DAILY [facility] Last Admin: 10/30/17 10:35 Dose: 10 mg Aspirin (Asa -) 81 mg PO DAILY [facility] Last Admin: 10/30/17 10:30 Dose: 81 mg Budesonide/Formoterol Fumarate (Symbicort 80/4.5mcg -) 2 puff IH BID [facility] Last Admin: 10/30/17 10:35 Dose: 2 inh Furosemide (Lasix -) 20 mg PO DAILY [facility] Last Admin: 10/30/17 10:30 Dose: 20 mg Gabapentin (Neurontin -) 300 mg PO HS [facility] Last Admin: 10/29/17 21:12 Dose: 300 mg HCTZ/Losartan Potassium (Hyzaar -) 1 tab PO DAILY [facility] Last Admin: 10/30/17 10:31 Dose: 1 tab Heparin Sodium (Porcine) (Heparin -) 5,000 unit SQ BID [facility] Last Admin: 10/30/17 10:28 Dose: 5,000 unit Insulin Aspart (Novolog Vial Sliding Scale -) 1 vial SQ ACHS [facility] PRN Reason: Protocol Last Admin: 10/30/17 11:40 Dose: 6 units Melatonin (Melatonin) 10 mg PO HS [facility] Last Admin: 10/29/17 21:11 Dose: 10 mg Methylprednisolone Sodium Succinate (Solu-Medrol -) 40 mg IVPUSH DAILY [facility] Last Admin: 10/30/17 10:30 Dose: 40 mg Metoprolol Succinate (Toprol Xl -) 100 mg PO DAILY [facility] Last Admin: 10/30/17 10:30 Dose: 100 mg Nicotine (Nicoderm Patch -) 7 mg TD DAILY [facility] Last Admin: 10/30/17 10:38 Dose: 7 mg Pantoprazole Sodium (Protonix -) 40 mg PO DAILY [facility] Last Admin: 10/30/17 10:30 Dose: 40 mg Polyethylene Glycol (Miralax (For Daily Use) -) 17 gm PO DAILY [facility] Last Admin: 10/30/17 10:31 Dose: 17 grams Ranolazine (Ranexa -) 500 mg PO BID [facility] Last Admin: 10/30/17 10:31 Dose: 500 mg Risperidone (Risperdal -) 1 mg PO HS [facility] Last Admin: 10/29/17 21:12 Dose: 1 mg - Objective Vital Signs: Vital Signs Temperature 98.6 F 10/30/17 14:00 Pulse Rate 79 10/30/17 14:00 Respiratory Rate 18 10/30/17 14:00 Blood Pressure 144/76 10/30/17 14:00 O2 Sat by Pulse Oximetry (%) 92 L 10/30/17 11:45 Constitutional: Yes: Well Nourished, Calm Eyes: Yes: WNL HENT: Yes: WNL Neck: Yes: WNL Cardiovascular: Yes: Regular Rate and Rhythm, S1, S2 Respiratory: Yes: CTA Bilaterally Gastrointestinal: Yes: Normal Bowel Sounds, Soft Extremities: Yes: WNL Edema: No Labs: CBC, BMP 10/30/17 06:00 10/30/17 06:00 Problem List - Problems (1) CHF (congestive heart failure) Code(s): I50.9 - HEART FAILURE, UNSPECIFIED (2) Tobacco abuse Code(s): Z72.0 - TOBACCO USE (3) Acute on chronic diastolic (congestive) heart failure Code(s): I50.33 - ACUTE ON CHRONIC DIASTOLIC (CONGESTIVE) HEART FAILURE (4) Acute on chronic respiratory failure with hypoxia and hypercapnia Code(s): J96.21 - ACUTE AND CHRONIC RESPIRATORY FAILURE WITH HYPOXIA; J96.22 - ACUTE AND CHRONIC RESPIRATORY FAILURE WITH HYPERCAPNIA (5) COPD exacerbation Code(s): J44.1 - CHRONIC OBSTRUCTIVE PULMONARY DISEASE W (ACUTE) EXACERBATION (6) Diabetes mellitus Code(s): E11.9 - TYPE 2 DIABETES MELLITUS WITHOUT COMPLICATIONS Qualifiers: Diabetes mellitus type: type 2 Diabetes mellitus complication status: without complication Diabetes mellitus fci insulin use: without technician terminal and repeater use Qualified Code(s): E11.9 - Type 2 diabetes mellitus without complications (7) Hypertension Code(s): I10 - ESSENTIAL (PRIMARY) HYPERTENSION Qualifiers: Hypertension type: essential hypertension Qualified Code(s): I10 - Essential (primary) hypertension (8) Sleep apnea Code(s): G47.30 - SLEEP APNEA, UNSPECIFIED (9) Morbid obesity Code(s): E66.01 - MORBID (SEVERE) OBESITY DUE TO EXCESS CALORIES Assessment/Plan IMP ACUTE ON CHRONIC HYPOXEMIC/HYPERCAPNEIC RESPIRATORY FAILURE IMPROVED COPD EXACERBATION IMPROVING ACUTE ON CHRONIC DIASTOLIC HF HTN DM MORBID OBESITY OSAS TOBACCO ABUSE PLAN STEROID TAPER LASIX PO INHALED BRONCHODILATORS O2 BIPAP DR CHRIS
[2017-10-30] MEDS: risperiDONE 1 MG TABLET (FP) PO SCH (21:52)
[2017-10-30] MEDS: GABAPENTIN 300 MG CAPSULE (FP) PO SCH (21:53)
[2017-10-30] MEDS: MELATONIN 5 MG TABLETS PO SCH (22:18)
[2017-10-31] MEDS: INSULIN SLIDING SCALE (NOVOLOG) 1 VIAL SQ SCH (06:28)
--- NOTE | 2017-10-31 06:36 | PN ---
Physical Exam: SUBJECTIVE: Patient seen and examined by me this AM - No major overnight events. Pt only complaining of delay in receiving tylenol for chronic lower back pain. States she is "going home today". Endorses much improvement in breathing, SOB. States she will be returning to live with her daughter. - Denies any OLIVO/dizziness, SOB/cough, CP/palpitations, N/V, abdominal pain, diarrhea, dysuria. Minimal ZAMBRANO when ambulating to bathroom. Endorses improvement in LE edema as well. - Will wait to see pulm recommendation for home d/c regimen OBJECTIVE: Vital Signs Intake & Output 10/28/17 10/29/17 10/30/17 10/31/17 23:59 23:59 23:59 23:59 Intake Total 300 350 200 Balance 300 350 200 Weight 89.358 kg 90.378 kg Period Temp Pulse Resp BP Sys/Cox Pulse Ox Last 24 Hr 98.2 F-99.0 F 77-80 18-18 144-152/76-85 92-92 GENERAL: A&Ox3. no acute distress. HEAD: NCAT EYES: PERRL, extraocular movements intact, conjunctiva clear. No ptosis. ENT: Ears normal, nares patent, oropharynx clear without exudates, moist mucous membranes. NECK: Trachea midline, supple. No JVD noted. LUNGS: CTAB. No wheeze or crackles. No accessory muscle use. HEART: 3/6 systolic ejection murmur heard best at RUSB and LUSB. Regular rate and rhythm, S1, S2 without murmur, rub or gallop. ABDOMEN: Soft, nontender, nondistended, normoactive bowel sounds, no guarding, no rebound. No suprapubic tenderness Upper EXTREMITIES: 2+ pulses, warm, well-perfused, no edema. Lower extremities: 2+ DP, PT pulses BL. 1+ pitting edema bilaterally, significantly improved. NEUROLOGICAL: Cranial nerves II through XII grossly intact. Normal speech, gait not observed. Psych: Pleasant, thought process linear, appropriate affect Laboratory Results - last 24 hr 10/30/17 10/30/17 10/30/17 06:00 06:00 11:36 WBC 6.1 RBC 4.06 Hgb 12.6 D Hct 38.8 MCV 95.4 MCH 30.9 MCHC 32.4 RDW 14.1 Plt Count 273 MPV 8.9 Sodium 138 Potassium 4.2 Chloride 99 Carbon Dioxide 34 H Anion Gap 5 L BUN 23 H Creatinine 1.0 D POC Glucometer 265 Random Glucose 266 H D Calcium 10.7 H 10/30/17 10/30/17 16:46 21:49 WBC RBC Hgb Hct MCV MCH MCHC RDW Plt Count MPV Sodium Potassium Chloride Carbon Dioxide Anion Gap BUN Creatinine POC Glucometer 257 209 Random Glucose Calcium Active Medications Generic Name Dose Route Start Last Admin Trade Name Freq PRN Reason Stop Dose Admin Acetaminophen 650 mg 10/28/17 11:56 10/30/17 20:03 Tylenol - PO 650 mg Q6H PRN Administration FEVER OR PAIN Albuterol/Ipratropium 1 amp 10/26/17 14:27 Duoneb - NEB Q4H PRN SHORTNESS OF BREATH Amlodipine Besylate 10 mg 10/30/17 10:00 10/30/17 10:35 Norvasc - PO 10 mg DAILY [facility] Administration Aspirin 81 mg 10/26/17 10:00 10/30/17 10:30 Asa - PO 81 mg DAILY [facility] Administration Budesonide/Formoterol Fumarate 2 puff 10/26/17 16:30 10/30/17 22:12 Symbicort 80/4.5mcg - IH 2 inh BID [facility] Administration Furosemide 20 mg 10/27/17 10:00 10/30/17 10:30 Lasix - PO 20 mg DAILY [facility] Administration Gabapentin 300 mg 10/27/17 22:00 10/30/17 21:53 Neurontin - PO 300 mg HS [facility] Administration HCTZ/Losartan Potassium 1 tab 10/26/17 13:30 10/30/17 10:31 Hyzaar - PO 1 tab DAILY [facility] Administration Heparin Sodium (Porcine) 5,000 unit 10/25/17 23:45 10/30/17 21:51 Heparin - SQ 5,000 unit BID [facility] Administration Insulin Aspart 1 vial 10/26/17 22:00 10/31/17 06:28 Novolog Vial Sliding Scale - SQ 2 units ACHS [facility] Administration Protocol Melatonin 10 mg 10/25/17 22:15 10/30/17 22:18 Melatonin PO 10 mg HS [facility] Administration Methylprednisolone Sodium Succinate 40 mg 10/30/17 10:00 10/30/17 10:30 Solu-Medrol - IVPUSH 40 mg DAILY [facility] Administration Metoprolol Succinate 100 mg 10/26/17 13:30 10/30/17 10:30 Toprol Xl - PO 100 mg DAILY [facility] Administration Nicotine 7 mg 10/26/17 10:00 10/30/17 10:38 Nicoderm Patch - TD 7 mg DAILY [facility] Administration Pantoprazole Sodium 40 mg 10/26/17 10:00 10/30/17 10:30 Protonix - PO 40 mg DAILY [facility] Administration Polyethylene Glycol 17 gm 10/28/17 18:00 10/30/17 10:31 Miralax (For Daily Use) - PO 17 grams DAILY [facility] Administration Ranolazine 500 mg 10/25/17 22:15 10/30/17 21:52 Ranexa - PO 500 mg BID [facility] Administration Risperidone 1 mg 10/26/17 20:00 10/30/17 21:52 Risperdal - PO 1 mg HS [facility] Administration No micro CXR 10/29 - Decreased congestion. Improved. CXR 10/26 - BL Pleural effusions. L compressive ateclectasis EKG 10/25 - RBBB. Extreme R axis deviation. TWI in v1-v3, v6. ASSESSMENT/PLAN: 72 yo woman w/ pmh of COPD, CAD (stents in 2012), diastolic CHF, HTN, DM,, dementia, who presented to ED with progressive increased WOB/SOB after >1 week of finishing steroid taper, unresponsive to home O2/duoneb tx, satting in low 80s at home with hx of multiple admissions for COPD/CHF exacerbations. Continues to improve. Likely d/c home with daughter tomorrow. #Acute hypoxic hypercapneic respiratory failure - AM ABG 7.36/67/61/37, minimal change on 4L O2 on admission. SOB improved significantly - O2 Tx. Maintain O2 >88%. Bipap at night. - If increasingly somnolent, hypoxic during day, escalate to BiPap and send ABG - Medrol decreased to 40mg daily - CXR improved - Duonebs q6h, q4h PRN - Symbicort BID - Finished course of zitrhomax 10/28 - Pulmonology consulted. Recs appreciated - Smoking cessation #Diastolic CHF - BNP 467 on admission. ECHO 06/14/2017 - grossly normal, EF 70%. weights slowly uptrending. - Toprol xl 100mg daily, Hyzaar 1 tab. Amlodipine d/c'ed - Lasix 20mg PO daily per cardiology. Trend Cr - Ranexa BID - Cardiology consulted. Awaiting recs. - Strict Is and Os #CAD - EKG w/ RBBB, TWIs V1-3,V6, NSR. Prior stents in 2012 - ASA 81mg - Continue BB, hyzaar - Trop neg x1 (0.02) - cardiology following #Agitation/dementia - pt improved MS today, no further agitation - Continue home risperdal qHS - Haldol PRN for acute agitation #DM - BGM ACHS - ISS - Gabapentin 300mg qhs for diabetic neuropathy #HTN - Cr 0.9 -> 0.8 today. BP moderate well controlled, BP 140s systolic overnight -lisinopril 20mg daily. Cr 0.8 today - Trend Cr #Gastric mass - Pt/family no wish for treatment/biopsy - GI consulted. Per Dr. Rosaleslester, daughter wishes for comfort care only. No procedures - Prior elevated CEA #GERD -PPI #OLIVO - Tylenol 650 Q6h PRN #nicotine dependence - Nicoderm patch - Nursing Attendant on smoking cessation #PPX Heparin subQ FEN: Fluids: Limit PO intake Electrolytes: Daily BMPs, monitor BUN/Cr. Nutrition: Diabetic diet Plan discussed with attending, Dr. Fred Gil, PGY1
[2017-10-31] MEDS: ACETAMINOPHEN 325 MG TABLET (FP) PO PRN (07:14)
--- NOTE | 2017-10-31 08:59 | PN ---
Teaching Attending Note Name of Resident: Renzo Gil ATTENDING PHYSICIAN STATEMENT I saw and evaluated the patient. I reviewed the resident's note and discussed the case with the resident. I agree with the resident's findings and plan as documented. SUBJECTIVE: no fever or hcills, mils PALLAVI hummel is similar to her chronic OLIVO , no visual changes , no weakness OBJECTIVE: NAD , awake alert and cooperative CV: RRR, 3/6 SM at RUSB and LLSB. JVD Lungs: CTAB. good air entry . minimal wheezing heard Abd: soft, No tenderness . NL BS Ext:trace pitting edema on legs Neuro : EOMI, round equal pupils reactive to light . no facial droop, tongue at mid line . setrength 5/5 in upper and lower ext proximally and distally. sensation to light touch NL. A/P : 72 y/o lady with h/o COPD exacerbation , active smoking, CAD, s/p stneting , D CHF, GAstric mass, DM , HL, GI bleed , and other medical problems who presented with SOB and was found to have acute hypoxic hypercapnic resp failure 1- Acute hypoxic hypercapnic resp failure 2/2 acute COPD exacerbation and possible acute Diastolic CHF . - switch to po steroids and taper as out pt - cont NEbs and inhalers as out pt 2- Acute D CHF: - Cont lasix po daily at dc . 2- H/o CAD, HTN, HLP: cont BB , ARB/HCTZ, and Norvasc 3- DM :resume glipizid as out pt , not metformin due to heart falure . sugars to be followed and regimen adjusted as needed 4- h/o stomach cancer . family opted conservative mgt. follow calcium level as out pt , suspected due to malignancy . w/u as out pt Dc home with VNS today . f/u with card .
[2017-10-31] MEDS ORDERED: predniSONE 20 MG TABLET (UD) PO STA (09:29)
[2017-10-31] MEDS ORDERED: PT OWN MED DRAWER 7, Y5N ONE (10:06)
[2017-10-31] MEDS: amLODIPine BESYLATE 10 MG TABLET (FP) PO SCH (10:08)
[2017-10-31] MEDS: ASPIRIN 81 MG CHEWABLE TABLETS PO SCH (10:08)
[2017-10-31] MEDS: HEPARIN NA (PORCINE) 5,000 UNITS/ML 1ML VIAL SQ SCH (10:09)
[2017-10-31] MEDS: RANOLAZINE E.R. 500 MG TABLET (FP) PO SCH (10:09)
[2017-10-31] MEDS: FUROSEMIDE 20 MG TABLET (FP) PO SCH (10:09)
[2017-10-31] MEDS: METOPROLOL SUCCINATE 100 MG TAB.SR.24H (FP) PO SCH (10:09)
[2017-10-31] MEDS: LOSARTAN 50MG/HCTZ 12.5MG 1 TAB (FP) PO SCH (10:09)
[2017-10-31] MEDS: PANTOPRAZOLE 40 MG TABLET (FP) PO SCH (10:09)
[2017-10-31] MEDS: NICOTINE 7 MG/24 HOURS TOPICAL PATCH TD SCH (10:11)
[2017-10-31] MEDS: POLYETHYLENE GLYCOL 3350 119 GM BTL PO SCH (10:11)
[2017-10-31] MEDS: methylPREDNISolone NA SUCC 40 MG/1 ML VIAL IVPUSH SCH (10:12)
[2017-10-31] MEDS: BUDESONIDE/FORMETEROL FUMARATE 80/4.5 mcg INHALER IH SCH (10:12)
--- NOTE | 2017-10-31 11:19 | PN ---
Progress Note (short form) - Note Progress Note: Breathing feels overall better. No acute events overnight. NAD on 4 L NC O2 (normal 2-3 L) Intake & Output 10/28/17 10/29/17 10/30/17 10/31/17 23:59 23:59 23:59 23:59 Intake Total 300 350 200 100 Balance 300 350 200 100 Weight 197 lb 199 lb 4 oz 194 lb 9.6 oz Last Vital Signs Temp Pulse Resp BP Pulse Ox 98.1 F 85 18 131/70 92 L 10/31/17 06:00 10/31/17 06:00 10/31/17 06:00 10/31/17 06:00 10/30/17 21:00 Active Medications Acetaminophen (Tylenol -) 650 mg PO Q6H PRN PRN Reason: FEVER OR PAIN Last Admin: 10/31/17 07:14 Dose: 650 mg Albuterol/Ipratropium (Duoneb -) 1 amp NEB Q4H PRN PRN Reason: SHORTNESS OF BREATH Amlodipine Besylate (Norvasc -) 10 mg PO DAILY [facility] Last Admin: 10/31/17 10:08 Dose: 10 mg Aspirin (Asa -) 81 mg PO DAILY [facility] Last Admin: 10/31/17 10:08 Dose: 81 mg Budesonide/Formoterol Fumarate (Symbicort 80/4.5mcg -) 2 puff IH BID [facility] Last Admin: 10/31/17 10:12 Dose: 2 inh Furosemide (Lasix -) 20 mg PO DAILY [facility] Last Admin: 10/31/17 10:09 Dose: 20 mg Gabapentin (Neurontin -) 300 mg PO HS [facility] Last Admin: 10/30/17 21:53 Dose: 300 mg HCTZ/Losartan Potassium (Hyzaar -) 1 tab PO DAILY [facility] Last Admin: 10/31/17 10:09 Dose: 1 tab Heparin Sodium (Porcine) (Heparin -) 5,000 unit SQ BID [facility] Last Admin: 10/31/17 10:09 Dose: 5,000 unit Insulin Aspart (Novolog Vial Sliding Scale -) 1 vial SQ ACHS [facility] PRN Reason: Protocol Last Admin: 10/31/17 06:28 Dose: 2 units Melatonin (Melatonin) 10 mg PO HS [facility] Last Admin: 10/30/17 22:18 Dose: 10 mg Methylprednisolone Sodium Succinate (Solu-Medrol -) 40 mg IVPUSH DAILY [facility] Last Admin: 10/31/17 10:12 Dose: Not Given Metoprolol Succinate (Toprol Xl -) 100 mg PO DAILY [facility] Last Admin: 10/31/17 10:09 Dose: 100 mg Nicotine (Nicoderm Patch -) 7 mg TD DAILY [facility] Last Admin: 10/31/17 10:11 Dose: 7 mg Pantoprazole Sodium (Protonix -) 40 mg PO DAILY [facility] Last Admin: 10/31/17 10:09 Dose: 40 mg Polyethylene Glycol (Miralax (For Daily Use) -) 17 gm PO DAILY [facility] Last Admin: 10/31/17 10:11 Dose: 17 grams Ranolazine (Ranexa -) 500 mg PO BID [facility] Last Admin: 10/31/17 10:09 Dose: 500 mg Risperidone (Risperdal -) 1 mg PO HS [facility] Last Admin: 10/30/17 21:52 Dose: 1 mg Constitutional: Yes: Well Nourished, NAD Eyes: Yes: WNL HENT: Yes: WNL Neck: Yes: WNL Cardiovascular: Yes: Regular Rate and Rhythm, S1, S2 Respiratory: Yes: CTA Bilaterally Gastrointestinal: Yes: Normal Bowel Sounds, Soft Extremities: Yes: WNL Edema: No Labs: Laboratory Results - last 24 hr 10/30/17 10/30/17 10/30/17 11:36 16:46 21:49 POC Glucometer 265 257 209 10/31/17 06:26 POC Glucometer 197 Problem List - Problems (1) CHF (congestive heart failure) Code(s): I50.9 - HEART FAILURE, UNSPECIFIED (2) Tobacco abuse Code(s): Z72.0 - TOBACCO USE (3) Acute on chronic diastolic (congestive) heart failure Code(s): I50.33 - ACUTE ON CHRONIC DIASTOLIC (CONGESTIVE) HEART FAILURE (4) Acute on chronic respiratory failure with hypoxia and hypercapnia Code(s): J96.21 - ACUTE AND CHRONIC RESPIRATORY FAILURE WITH HYPOXIA; J96.22 - ACUTE AND CHRONIC RESPIRATORY FAILURE WITH HYPERCAPNIA (5) COPD exacerbation Code(s): J44.1 - CHRONIC OBSTRUCTIVE PULMONARY DISEASE W (ACUTE) EXACERBATION (6) Diabetes mellitus Code(s): E11.9 - TYPE 2 DIABETES MELLITUS WITHOUT COMPLICATIONS Qualifiers: Diabetes mellitus type: type 2 Diabetes mellitus complication status: without complication Diabetes mellitus senior care insulin use: without senior care use Qualified Code(s): E11.9 - Type 2 diabetes mellitus without complications (7) Hypertension Code(s): I10 - ESSENTIAL (PRIMARY) HYPERTENSION Qualifiers: Hypertension type: essential hypertension Qualified Code(s): I10 - Essential (primary) hypertension (8) Sleep apnea Code(s): G47.30 - SLEEP APNEA, UNSPECIFIED (9) Morbid obesity Code(s): E66.01 - MORBID (SEVERE) OBESITY DUE TO EXCESS CALORIES Assessment/Plan IMP ACUTE ON CHRONIC HYPOXEMIC/HYPERCAPNEIC RESPIRATORY FAILURE IMPROVED COPD EXACERBATION IMPROVING ACUTE ON CHRONIC DIASTOLIC HF HTN DM MORBID OBESITY OSAS TOBACCO ABUSE PLAN PREDNISONE TAPER LASIX INHALED BRONCHODILATORS O2: DAUGHTER WILL TITRATE AT HOME TO KEEP SAT 88% TO 92% PATIENT HAS A FOLLOW UP APPOINTMENT WITH DR FRANKLIN IN [address] REYNOSO
[2017-10-31 11:50] VITALS: BP 122/66; PULSE 76; TEMP 98
--- NOTE | 2017-10-31 12:00 | DS ---
Physical Exam: SUBJECTIVE: Patient seen and examined by me this AM - No major overnight events. Pt only complaining of delay in receiving tylenol for chronic lower back pain. States she is "going home today". Endorses much improvement in breathing, SOB. States she will be returning to live with her daughter. - Denies any OLIVO/dizziness, SOB/cough, CP/palpitations, N/V, abdominal pain, diarrhea, dysuria. Minimal ZAMBRANO when ambulating to bathroom. Endorses improvement in LE edema as well. - Will wait to see pulm recommendation for home d/c regimen OBJECTIVE: Vital Signs Period Temp Pulse Resp BP Sys/Cox Pulse Ox Last 24 Hr 98 F-98.6 F 76-85 18-22 122-149/66-85 92 PHYSICAL EXAM GENERAL: A&Ox3. no acute distress. HEAD: NCAT EYES: PERRL, extraocular movements intact, conjunctiva clear. No ptosis. ENT: Ears normal, nares patent, oropharynx clear without exudates, moist mucous membranes. NECK: Trachea midline, supple. No JVD noted. LUNGS: CTAB. No wheeze or crackles. No accessory muscle use. HEART: 3/6 systolic ejection murmur heard best at RUSB and LUSB. Regular rate and rhythm, S1, S2 without murmur, rub or gallop. ABDOMEN: Soft, nontender, nondistended, normoactive bowel sounds, no guarding, no rebound. No suprapubic tenderness Upper EXTREMITIES: 2+ pulses, warm, well-perfused, no edema. Lower extremities: 2+ DP, PT pulses BL. 1+ pitting edema bilaterally, significantly improved. NEUROLOGICAL: Cranial nerves II through XII grossly intact. Normal speech, gait not observed. Psych: Pleasant, thought process linear, appropriate affect LABS Laboratory Results - last 24 hr 10/30/17 10/30/17 10/30/17 11:36 16:46 21:49 POC Glucometer 265 257 209 10/31/17 06:26 POC Glucometer 197 HOSPITAL COURSE: Date of Admission:10/25/17 Date of Discharge: 10/31/17 72 yo woman w/ pmh of COPD, CAD (stents in 2012), diastolic CHF, HTN, DM,, dementia, who presented to ED with progressive increased WOB/SOB after >1 week of finishing steroid taper, unresponsive to home O2/duoneb tx, satting in low 80s at home with hx of multiple admissions for COPD/CHF exacerbations. Pt was afebrile, with no WBC count, negative trops and a BNP of 467 and BP was stable at 150/85. Her ABG on presentation was 7.36/67/37/86 and she was treated for acute hypercapneic respiratory distress secondary to COPD exacerbation. She was started on medrol 60 BID, duonebs q6h, ventolin prn and O2 tx. Pt was moderately delirious on presentation w/ baseline mild dementia per daughter and was refusing Bipap. CXR on admission showed BL pleural effusion. Pt was given lasix 40 mg IV and her home BB was held. She was seen by cardiology and pulmonology during her admission and was treated with low dose lasix 20mg for fluid status and started on hyzaar, BB and amlodipine for her HTN. She was continue on inhaled bronchodilators, O2 and medrol taper and was prescribed for BiPap at night, however pt was non-compliant with bipap device. Pt was also seen by Dr. Malone of for a liver lesion noted on prior imaging, but he recommended no further intervention and family agreed. Pt improved on the stated tx and her mental status and SOB improved during her stay. She was gradually tapered off her solumedrol to 40mg IV daily and, given her significant clinical improvement, she was discharged on 10/31 with outpt follow- up scheduled with Dr. Key, her graphic arts technician, and Dr. Gonzalez, her arcade games mechanic. Micro: No Micro Imaging: CXR 10/29 - Decreased congestion. Improved. CXR 10/26 - BL Pleural effusions. L compressive ateclectasis EKG 10/25 - RBBB. Extreme R axis deviation. TWI in v1-v3, v6. Consults: Cardiology - Dr. Velasco Seen by Dr. Velasco for further evaluation/management of CHF/HTN. Recommended above stated tx regimen and outpt f/u. Plan per cardiology during admission- 1. Lasix 20 qd with monitor diuretic response, renal fxn and electrolytes 2. Continue bronchodilator, IV steroid taper, empiric abx course, O2 as needed to keep SpO2 >90%, BiPAP to assist in work of breathing 3. Continue ASA 81 qd, Metoprolol XL 100 qd, Hyzaar 1 qd, Amlodipine 10 qd and Ranexa 500 bid as tolerated 4. Continue DVT and GI prophylaxis, tobacco cessation Pulmonology - Dr. Benz/Dr. James Pt was seen by pulmonology team during admission, recommended above stated tx with outpt f/u. Plan per pulmonology: IV STEROIDS INHALED BRONCHODILATORS DIURETICS O2 BIPAP AT NIGHT AND PRN F/U CHEST X-RAY SMOKING CESSATION Gastroenterology - Dr. Malone Saw pt for liver lesion noted on prior imaging. Determined likely benign. Recommended no further work-up/tx. GI recommendation: There is no need to do procedures and she is DNR/DNI Gastric lesion likely benign. Elevated CEA secondary to tobacco use. Management of respiratory and cardiac symptoms only Patient is stable and medically cleared for discharge with resolution of pulmonary symptoms. She will follow-up with her outpt graphic arts technician, Dr. Key, for further management of her chronic COPD, as well as her arcade games mechanic, Dr. Gonzalez, for continued management of her CHF. Minutes to complete discharge: 25 Discharge Summary Reason For Visit: CHF Current Active Problems Acute on chronic respiratory failure with hypoxia and hypercapnia (Acute) COPD exacerbation (Acute) Condition: Stable - Instructions Diet, Activity, Other Instructions: You were treated for acute exacerbation of your COPD and acute exacerbation of your CHF The following changes were made to your home medications: continue your prednisone taper: 11/01 - 11/03 50mg po daily 11/04 - 11/07 40mg po daily 11/08 - 11/11 30 mg daily 11/12 - 11/15 20mg po daily 11/16 - 11/20 10mg po daily last day of your taper is 11/20 continue protonix while on prednisone. You were started on the following blood pressure medications Hyzaar therapy Lasix therapy with close monitoring of renal function and calcium levels Previous home medicatios: Continue Toprol-XL therapy Continue Ranexa therapy Continue Aspirin therapy Please taking your Metformin. Follow-ups: 1. Dr. Hill, your PCP 2. Dr. Key for pulmonology 3. Dr. Krishnan for cardiology Diet: Diabetic diet A registered dietitian can help make an eating plan just for you. It should take into account your weight, medicines, lifestyle, and other health problems you have. Healthy diabetic eating includes Limiting foods that are high in sugar Eating smaller portions, spread out over the day Being careful about when and how many carbohydrates you eat Eating a variety of whole-grain foods, fruits and vegetables every day Eating less fat Limiting your use of alcohol Using less salt You are approved for the following exercise regimen: Walking with oxygen as tolerated. PLEASE REFRAIN FROM SMOKING. YOU ARE CURRENTLY ON HOME OXYGEN THERAPY AND DOING SO COULD LEAD TO SEVERE STONE/FIRES AND WILL CAUSE FURTHER EXACERBATION OF YOUR COPD. Please return to the hospital if you experience persistent shortness of breath, chest pain, fever/chills or any new symptoms for >3 days. Referrals: Karina Krishnan MD [Staff Physician] - 2 Weeks Ramona Hill MD [Primary Care Provider] - 1 Week Tee Key MD [Staff Physician] - 1 Week Disposition: VNS/HOME HEALTH CARE - Home Medications Comprehensive Discharge Medication List: Ambulatory Orders Amlodipine Besylate [Norvasc -] 10 mg PO HS 10/25/17 Aspirin [ASA -] 81 mg PO DAILY 10/25/17 Fluticasone Propionate 32 gm NS DAILY 10/25/17 Gabapentin [Neurontin] 300 mg PO HS 10/25/17 Glipizide [Glipizide ER] 5 mg PO DAILY 10/25/17 Metoprolol Succinate [Toprol Xl] 100 mg PO DAILY 10/25/17 Multivitamin [One Daily] 1 each PO DAILY 10/25/17 Omeprazole 40 mg PO DAILY 10/25/17 Ranolazine [Ranexa] 500 mg PO BID 10/25/17 Risperidone [Risperdal] 1 mg PO HS 10/25/17 Albuterol 2.5/Ipratropium 0.5 [Duoneb -] 1 amp NEB QIDR amp 10/31/17 Budesonide/Formeterol Fumarate [SYMBICORT 80/4.5mcg -] 2 puff IH BID #1 inhaler 10/31/17 Furosemide [Lasix -] 20 mg PO DAILY #30 tablet 10/31/17 Losartan 50Mg/Hctz 12.5MG [Hyzaar -] 1 tab PO DAILY #30 tablet 10/31/17 Nicotine Patch [Nicoderm Patch -] 7 mg TD DAILY patch 10/31/17 Polyethylene Glycol 3350 [Miralax 119 gm Btl -] 17 gm PO DAILY bottle 10/31/17 Prednisone See Taper PO DAILY #60 tablet 10/31/17 Problem List - Problems (1) Acute on chronic respiratory failure with hypoxia and hypercapnia Code(s): J96.21 - ACUTE AND CHRONIC RESPIRATORY FAILURE WITH HYPOXIA; J96.22 - ACUTE AND CHRONIC RESPIRATORY FAILURE WITH HYPERCAPNIA (2) COPD exacerbation Code(s): J44.1 - CHRONIC OBSTRUCTIVE PULMONARY DISEASE W (ACUTE) EXACERBATION (3) Hypertension Code(s): I10 - ESSENTIAL (PRIMARY) HYPERTENSION Qualifiers: Hypertension type: essential hypertension Qualified Code(s): I10 - Essential (primary) hypertension This patient is new to me today: No Emergency Visit: Yes ED Registration Date: 10/25/17 Care time: The patient presented to the Emergency Department on the above date and was hospitalized for further evaluation of their emergent condition. Critical Care patient: No - Discharge Referral Referred to [facility] Med P.C.: No
== END 2017-10-31 11:54 | disposition home health service (06) | DRG 189 ==
LOC: JER 17:10 → JERBED 23:02 → UNDOADMIN 23:58 → J8W 10-26 09:17
PROVIDERS: ADMIT Internal Medicine; ATTEND Internal Medicine
PROC: 5A09457 Assistance with Respiratory Ventilation, 24-96 Consecutive Hours, Continuous Positive Airway Pressure (ICD-10-PCS; principal; 2017-10-26)
DX: J96.02 Acute respiratory failure with hypercapnia (principal); I50.33 Acute on chronic diastolic (congestive) heart failure; J44.1 Chronic obstructive pulmonary disease with (acute) exacerbation; J98.11 Atelectasis; J96.01 Acute respiratory failure with hypoxia; I25.10 Atherosclerotic heart disease of native coronary artery without angina pectoris; F03.90 Unspecified dementia, unspecified severity, without behavioral disturbance, psychotic disturbance, mood disturbance, and anxiety; K31.89 Other diseases of stomach and duodenum; E78.5 Hyperlipidemia, unspecified; F32.89 Other specified depressive episodes; K76.0 Fatty (change of) liver, not elsewhere classified; I71.2 Thoracic aortic aneurysm, without rupture; F17.210 Nicotine dependence, cigarettes, uncomplicated; I45.19 Other right bundle-branch block; K21.9 Gastro-esophageal reflux disease without esophagitis; E11.40 Type 2 diabetes mellitus with diabetic neuropathy, unspecified; M06.80 Other specified rheumatoid arthritis, unspecified site; E66.01 Morbid (severe) obesity due to excess calories; G47.39 Other sleep apnea; R51 Headache; I11.0 Hypertensive heart disease with heart failure; Z95.5 Presence of coronary angioplasty implant and graft; Z99.81 Dependence on supplemental oxygen; Z86.73 Personal history of transient ischemic attack (TIA), and cerebral infarction without residual deficits
CPT/HCPCS: 36415; 36600; 71010-TC; 71020-TC; 80048; 80053; 82550; 82803; 83735; 83880; 84484; 85025; 85027; 93005; 93010; 94640; 94660; 97116-GP; 97161-GP; 99285-25; J1644; J2794

== ENCOUNTER 2017-12-04 10:10 | Inpatient (IN) | payer OTHER ==
[2017-12-04 10:34] VITALS: BMI 32.2
[2017-12-04] MEDS ORDERED: ALBUTEROL SO4 2.5/IPRATROPIUM 0.5 INH SOL 3 ML VIAL.NEB. NEB ONE ×2 (11:19→11:21)
[2017-12-04 11:25] LABS: EOS % 0.7 % (0-4.5); HEMATOCRIT 38.5 % (32.4-45.2); HEMOGLOBIN 12.2 GM/dL (10.7-15.3); LYMPH % 17.3 % (8-40); MCH 30.6 pg (25.7-33.7); MCHC 31.7 g/dl (32.0-36.0); MEAN CELL VOLUME 96.4 fl (80-96); MEAN PLT VOLUME 8.6 fl (7.5-11.1); MONO % 6.8 % (3.8-10.2); NEUT % 74.2 % (42.8-82.8); PLATELET COUNT 229 K/MM3 (134-434); RBC 3.99 M/mm3 (3.60-5.2); RDW 14.5 % (11.6-15.6); WHITE BLOOD COUNT 6.9 K/mm3 (4.0-10.0)
[2017-12-04] MEDS ORDERED: FUROSEMIDE 40 MG/4 ML INJECTABLE VIAL IVPUSH ONE ×2 (11:39→18:00)
[2017-12-04] MEDS ORDERED: FUROSEMIDE 40 MG/4 ML INJECTABLE VIAL ONE (11:43)
--- NOTE | 2017-12-04 11:47 | PDOC ---
History of Present Illness - General Chief Complaint: Altered Mental Status Stated Complaint: ALTER MENTAL STATUS Time Seen by Provider: 12/04/17 10:12 History Source: Patient Exam Limitations: No Limitations - History of Present Illness Initial Comments: 12/04/17 11:47 72 y/o lady with h/o COPD exacerbation usually on 3L O2, RA, TIA, ascending aortic aneurism (4.5cm) active smoking, CAD, s/p stenting , D CHF, GAstric mass , DM , HL, GI bleed , and other medical problems who presented with SOB and was found by her daughter to be desating in the mid-70's and confused, not correctly identifying some people around her. Called EMS who sent the patient to [place] but daughter managed to have her sent to here instead. 12/04/17 11:50 12/04/17 12:29 12/04/17 13:14 Past History - Past Medical History Allergies/Adverse Reactions: Allergies Allergy/AdvReac Type Severity Reaction Status Date / Time No Known Allergies Allergy Verified 12/04/17 10:31 Home Medications: Ambulatory Orders Amlodipine Besylate [Norvasc -] 10 mg PO HS 10/25/17 Aspirin [ASA -] 81 mg PO DAILY 10/25/17 Fluticasone Propionate 32 gm NS DAILY 10/25/17 Gabapentin [Neurontin] 300 mg PO HS 10/25/17 Glipizide [Glipizide ER] 5 mg PO DAILY 10/25/17 Metoprolol Succinate [Toprol Xl] 100 mg PO DAILY 10/25/17 Multivitamin [One Daily] 1 each PO DAILY 10/25/17 Omeprazole 40 mg PO DAILY 10/25/17 Ranolazine [Ranexa] 500 mg PO BID 10/25/17 Risperidone [Risperdal] 1 mg PO HS 10/25/17 Albuterol 2.5/Ipratropium 0.5 [Duoneb -] 1 amp NEB QIDR amp 10/31/17 Budesonide/Formeterol Fumarate [SYMBICORT 80/4.5mcg -] 2 puff IH BID #1 inhaler 10/31/17 Furosemide [Lasix -] 20 mg PO DAILY #30 tablet 10/31/17 Losartan 50Mg/Hctz 12.5MG [Hyzaar -] 1 tab PO DAILY #30 tablet 10/31/17 Nicotine Patch [Nicoderm Patch -] 7 mg TD DAILY patch 10/31/17 Polyethylene Glycol 3350 [Miralax 119 gm Btl -] 17 gm PO DAILY bottle 10/31/17 Prednisone See Taper PO DAILY #60 tablet 10/31/17 Anemia: No Asthma: No Cancer: No Cardiac Disorders: No CVA: Yes (TIAs) COPD: Yes CHF: No Dementia: Yes Diabetes: Yes (NIDDM) GI Disorders: Yes (Rectal bleed 2013) Disorders: No HTN: Yes Hypercholesterolemia: Yes Liver Disease: Yes (FATTY) Seizures: No Thyroid Disease: No - Surgical History Abdominal Surgery: Yes (ASCENDING AORTIC ANEURYSM) Appendectomy: No Cardiac Surgery: No Cholecystectomy: Yes GI Surgery: Yes (bleeding ulcers) Lung Surgery: No Neurologic Surgery: No Orthopedic Surgery: Yes (ACL repair) - Immunization History Immunization Up to Date: Yes - Suicide/Smoking/Psychosocial Hx Smoking Status: Yes Smoking History: Former smoker Have you smoked in the past 12 months: No Number of Cigarettes Smoked Daily: 3 If you are a former smoker, when did you quit?: 6 months Cigars Per Day: 0 Information on smoking cessation initiated: No 'Breaking Loose' booklet given: 12/17/14 Hx Alcohol Use: No Drug/Substance Use Hx: No Substance Use Type: None Hx Substance Use Treatment: No Cardiac Specific PMH - Complaint Specific PMHX Pacemaker: No Review of Systems - Review of Systems Able to Perform ROS?: Yes Is the patient limited Albanian proficient: No Constitutional: No: Symptoms Reported HEENTM: No: Symptoms Reported Respiratory: Yes: Cough, Shortness of Breath Cardiac (ROS): No: Symptoms Reported ABD/GI: No: Symptoms Reported : Yes: Symptoms Reported Musculoskeletal: Yes: Symptoms Reported Integumentary: Yes: Symptoms Reported Neurological: Yes: Symptoms reported *Physical Exam - Vital Signs Last Vital Signs Temp Pulse Resp BP Pulse Ox 99.5 F 76 18 144/75 94 L 12/04/17 10:10 12/04/17 10:10 12/04/17 10:10 12/04/17 10:10 12/04/17 11:00 - Physical Exam General Appearance: Yes: Mild Distress, Obese HEENT: positive: EOMI, MEHUL, Normal ENT Inspection Neck: negative: Tender Respiratory/Chest: positive: Labored Respiration, Rapid RR, Decreased Breath Sounds. negative: Chest Tender, Respiratory Distress Cardiovascular: positive: Regular Rhythm, Regular Rate, S1, S2 Gastrointestinal/Abdominal: positive: Normal Bowel Sounds, Protuberent Musculoskeletal: positive: CVA Tenderness (L) Neurologic: positive: Alert, Normal Mood/Affect. negative: Fully Oriented ( oriented to self and place) ED Treatment Course - LABORATORY CBC & Chemistry Diagram: 12/04/17 11:12 12/04/17 11:12 - ADDITIONAL ORDERS Additional order review: Laboratory Results 12/04/17 12/04/17 12/04/17 12:30 11:17 11:17 PT with INR 11.40 INR 1.01 PTT (Actin FS) 28.1 VBG pH 7.36 POC VBG pCO2 67.9 H* POC VBG pO2 46.7 Mixed VBG HCO3 37.7 H Sodium Potassium Chloride Carbon Dioxide Anion Gap BUN Creatinine Creat Clearance w eGFR Random Glucose Calcium Phosphorus Magnesium Total Bilirubin AST ALT Alkaline Phosphatase Creatine Kinase Troponin I B-Natriuretic Peptide Total Protein Albumin Urine Color Yellow Urine Appearance Clear Urine pH 5.0 Ur Specific [place] 1.016 Urine Protein Negative Urine Glucose (UA) Negative Urine Ketones Negative Urine Blood Negative Urine Nitrite Negative Urine Bilirubin Negative Urine Urobilinogen Negative Ur Leukocyte Esterase Negative 12/04/17 12/04/17 12/04/17 11:17 11:12 11:12 PT with INR INR PTT (Actin FS) VBG pH POC VBG pCO2 POC VBG pO2 Mixed VBG HCO3 Sodium 142 Potassium 4.4 Chloride 101 Carbon Dioxide 35 H Anion Gap 6 L BUN 21 H Creatinine 1.0 Creat Clearance w eGFR 54.20 Random Glucose 224 H Calcium 10.3 H Phosphorus 2.8 Magnesium 2.0 Total Bilirubin 0.2 D AST 16 D ALT 21 Alkaline Phosphatase 78 Creatine Kinase 63 Troponin I < 0.02 B-Natriuretic Peptide 232.60 H Total Protein 6.4 Albumin 3.0 L Urine Color Urine Appearance Urine pH Ur Specific [place] Urine Protein Urine Glucose (UA) Urine Ketones Urine Blood Urine Nitrite Urine Bilirubin Urine Urobilinogen Ur Leukocyte Esterase 12/04/17 11:12 RBC 3.99 MCV 96.4 H MCHC 31.7 L RDW 14.5 MPV 8.6 Neutrophils % 74.2 Lymphocytes % 17.3 D Monocytes % 6.8 Eosinophils % 0.7 D Basophils % 1.0 D - RADIOLOGY Radiology Studies Ordered: Category Date Time Status HEAD CT WITHOUT CONTRAST [CT] Stat CT Scan 12/04/17 10:16 Taken CHEST X-RAY PORTABLE* [RAD] Stat Radiology 12/04/17 10:26 Completed - Medications Given in the ED: ED Medications Discontinued Medications Generic Name Dose Route Start Last Admin Trade Name Dylan PRN Reason Stop Dose Admin Albuterol/Ipratropium 1 amp 12/04/17 11:19 12/04/17 11:29 Duoneb - NEB 12/04/17 11:20 1 amp ONCE ONE Administration Furosemide 40 mg 12/04/17 11:39 12/04/17 12:02 Lasix Injection - IVPUSH 12/04/17 11:40 40 mg ONCE ONE Administration Methylprednisolone Sodium Succinate 125 mg 12/04/17 12:27 12/04/17 13:14 Solu-Medrol - IVPUSH 12/04/17 12:28 125 mg ONCE ONE Administration Piperacillin/Tazobactam/Dextrose 3.375 gm 12/04/17 12:30 12/04/17 12:47 Zosyn 3.375gm Ivpb (Premix) IVPB 12/04/17 12:31 3.375 gm ONCE ONE Administration Vancomycin HCl 1,000 mg 12/04/17 12:27 12/04/17 13:14 Vancomycin (Pre-Docked) IVPB 12/04/17 12:28 1,000 mg ONCE ONE Administration Protocol Medical Decision Making - Medical Decision Making 12/04/17 12:11 Patient saturating in the 75's to 100"s Septic workup ordered. CXR: Since 10/29/2017, there is a progressive left pleural effusion with left base infiltrate. There is also some increased markings noted in the right hemithorax. There is a large heart, sclerotic unfolded aorta, prominent nicole and some scarring or postsurgical change seen in the right midlung field. Correlation recommended Impression: Worse. See above. 12/04/17 12:13 12/04/17 13:20 Patient started on duonebs, steroids and antibiotics. Daugther gave patient her home meds *DC/Admit/Observation/Transfer Diagnosis at time of Disposition: COPD exacerbation - Discharge Dispostion Admit: Yes - Referrals Referrals: Ramona Hill MD [Primary Care Provider] - - Patient Instructions - Post Discharge Activity
[2017-12-04 11:53] LABS: VENOUS PH 7.36 (7.32-7.42); VENOUS PO2 46.7 mmHg (28-48)
[2017-12-04 11:54] LABS: VENOUS PC02 67.9 mmHg (38-52)
[2017-12-04 12:02] LABS: INR 1.01 (0.82-1.09); PROTHROMBIN TIME (PATIENT) 11.4 SEC (9.98-11.88)
[2017-12-04 12:04] LABS: ACTIVATED PTT 28.1 SECONDS (26.9-34.4)
--- NOTE | 2017-12-04 12:15 | PDOC ---
Attending Attestation - Resident Resident Name: Naveed Sweeney - ED Attending Attestation I have performed the following: I have examined & evaluated the patient, The case was reviewed & discussed with the resident, I agree w/resident's findings & plan, Exceptions are as noted - HPI HPI: 12/04/17 12:13 "The patient is a 72 year old female with past medical history of asthma, diabetes, COPD and CHF who arrives to the ED, from home, with her daughter for altered mental status and SOB. As per daughter, she has noticed a significant decrease in patients mental baseline, stating that the pt has had increased confusion, though this appears to wax and wane. She also notes that the patient has become generally more weak for the past week. The patient is usually on 3L home O2, but the daughter reports putting her up to 5L due to desaturation to mid 70s. Last finger stick as taken this morning which was reported to be in the 200s. Daughter notes that pt was short of breath this morning. However, the patient currently denies any complaints. No F/C noted at home. No CP. No increased leg swelling. - Physicial Exam PE: 12/04/17 12:18 "GENERAL: Awake, alert, oriented to person and place, in mild respiratory distress HEAD: No signs of trauma EYES: PERRLA, EOMI, sclera anicteric, conjunctiva clear ENT: Auricles normal inspection, hearing grossly normal, nares patent, oropharynx clear without exudates. Moist mucosa NECK: Nontender, no stepoffs, Normal ROM, supple, no lymphadenopathy, JVD, or masses LUNGS: + diminished breath sounds L lung base, expiratory wheezes bilaterally HEART: Regular rate and rhythm, normal S1 and S2, no murmurs, rubs or gallops ABDOMEN: Soft, nontender, normoactive bowel sounds. No guarding, no rebound. No masses EXTREMITIES: +1 PE BLE NEUROLOGICAL: Cranial nerves II through XII intact. 5/5 strength and sensation in all extremities, Normal speech, normal gait SKIN: Warm, Dry, normal turgor, no rashes or lesions noted. " - Medical Decision Making 12/04/17 12:21 72 F with SOB and hypoxia at home, likely 2/2 COPD vs CHF. Pt with mild wheezes on exam. Pt also reportedly having waxing and waning confusion, possibly 2/2 infectious process vs hypercapnia vs other metabolic derangement. Neurologically non-focal at this time. Low suspicion for acute stroke. - Labs, blood gas - UA, CXR - CTH - Nebulizers, steroids
[2017-12-04] MEDS ORDERED: VANCOMYCIN 1 GRAM (PRE-DOCKED) 1,000 MG/250 ML BAG IVPB ONE ×2 (12:27→13:12)
[2017-12-04] MEDS ORDERED: AZITHROMYCIN IVPB 500 MG in DEXTROSE 5%-WATER - 250 ML IVPB ONE (12:27)
[2017-12-04] MEDS ORDERED: methylPREDNISolone NA SUCC 125 MG/2 ML VIAL IVPUSH ONE (12:27)
[2017-12-04] MEDS ORDERED: PIPERACIL/TAZOB 3.375 GM 3.375 GM/50 ML PREMIX IVPB ONE (12:30)
[2017-12-04 12:40] LABS: URINE APPEARANCE CLEAR; URINE BILIRUBIN NEGATIVE (NEGATIVE); URINE BLOOD NEGATIVE (NEGATIVE); URINE COLOR YELLOW; URINE GLUCOSE (UA) NEGATIVE (NEGATIVE); URINE KETONE NEGATIVE (NEGATIVE); URINE LEUK ESTERASE NEGATIVE (NEGATIVE); URINE NITRITE NEGATIVE (NEGATIVE); URINE PROTEIN NEGATIVE (NEGATIVE); URINE UROBILINOGEN NEGATIVE mg/dL (0.2-1.0)
[2017-12-04 13:05] LABS: ALK PHOS 78 U/L (45-117); ANION GAP 6 (8-16); BILIRUBIN,TOTAL 0.2 mg/dL (0.2-1.0); BLOOD UREA NITROGEN 21 mg/dL (7-18); CALCIUM 10.3 mg/dL (8.5-10.1); CHLORIDE 101 mmol/L (98-107); CO2 35 mmol/L (21-32); GLUCOSE,RANDOM 224 mg/dL (74-106); PHOSPHOROUS 2.8 mg/dL (2.5-4.9); SGPT/ALT 21 U/L (12-78); SODIUM 142 mmol/L (136-145); TOT PROT 6.4 g/dl (6.4-8.2)
[2017-12-04 13:07] LABS: POTASSIUM 4.4 mmol/L (3.5-5.1)
[2017-12-04 13:08] LABS: SGOT/AST 16 U/L (15-37)
[2017-12-04] MEDS ORDERED: AZITHROMYCIN IVPB 250 ML IVPB ONE (13:12)
[2017-12-04] MEDS ORDERED: methylPREDNISolone NA SUCC 125 MG/2 ML VIAL ONE (13:13)
--- NOTE | 2017-12-04 13:58 | HP ---
CHIEF COMPLAINT: SOB, desaturation on home O2 Boiler Maker: Dr. Key Platform Operations Director: Dr. Krishnan HISTORY OF PRESENT ILLNESS: 72 year-old woman with a PMH significant for HTN, diastolic HF, CAD s/p stents, COPD oxygen dependent, IDDM, and dementia, was brought to the ED by her daughter for increased confusion and weakness. Daughter reported patient desatting to 70s on 3L home O2. Patient has had multiple admissions for CHF/ COPD exacerbations. She refuses BiPAP. ER course was notable for: (1) afebrile, no leukocytosis (2) CXR: progressive left pleural effusion since 10/29/17; left base infiltrate; increased markings right hemithorax (2) Solumedrol 125mg x 1; azithro x 1; zosyn x 1; lasix IV 40mg x 1 (3) duonebs x 1 Recent Travel: No PAST MEDICAL HISTORY: Hypertension Hyperlipidemia COPD on 3L O2 Diastolic heart failure Coronary artery disease Ascending aortic aneurysm Rheumatoid arthritis IDDM h/o GI bleed Gastric mass Dementia PAST SURGICAL HISTORY: Cardiac stents (2012) Social History: Smoking: quit 6 months ago Alcohol: Drugs: Family History: Allergies No Known Allergies Allergy (Verified 12/04/17 10:31) HOME MEDICATIONS: Home Medications Medication Instructions Recorded Amlodipine Besylate [Norvasc -] 10 mg PO HS 10/25/17 Aspirin [ASA -] 81 mg PO DAILY 10/25/17 Fluticasone Propionate 32 gm NS DAILY 10/25/17 Gabapentin [Neurontin] 300 mg PO HS 10/25/17 Glipizide [Glipizide ER] 5 mg PO DAILY 10/25/17 Metoprolol Succinate [Toprol Xl] 100 mg PO DAILY 10/25/17 Multivitamin [One Daily] 1 each PO DAILY 10/25/17 Omeprazole 40 mg PO DAILY 10/25/17 Ranolazine [Ranexa] 500 mg PO BID 10/25/17 Risperidone [Risperdal] 1 mg PO HS 10/25/17 Albuterol 2.5/Ipratropium 0.5 1 amp NEB QIDR amp 10/31/17 [Duoneb -] Budesonide/Formeterol Fumarate 2 puff IH BID #1 inhaler 10/31/17 [SYMBICORT 80/4.5mcg -] Furosemide [Lasix -] 20 mg PO DAILY #30 tablet 10/31/17 Losartan 50Mg/Hctz 12.5MG [Hyzaar 1 tab PO DAILY #30 tablet 10/31/17 -] Nicotine Patch [Nicoderm Patch -] 7 mg TD DAILY patch 10/31/17 Polyethylene Glycol 3350 [Miralax 17 gm PO DAILY bottle 10/31/17 119 gm Btl -] Prednisone See Taper PO DAILY #60 tablet 10/31/17 REVIEW OF SYSTEMS Patient unable to provide due to AMS; daughter not available PHYSICAL EXAMINATION Vital Signs - 24 hr 12/04/17 12/04/17 10:10 11:00 Temperature 99.5 F Pulse Rate 76 Respiratory 18 Rate Blood Pressure 144/75 O2 Sat by Pulse 100 94 L Oximetry (%) GENERAL: Confused. Agitated with medical interventions. LUNGS: Poor inspiratory effort. Diminished breath sounds throughout. HEART: Regular rate and rhythm, normal S1 and S2 ABDOMEN: Soft, nontender, not distended MUSCULOSKELETAL: Normal range of motion at all joints. No bony deformities or tenderness. No CVA tenderness. UPPER EXTREMITIES: 2+ pulses, warm, well-perfused. No cyanosis. No clubbing. LOWER EXTREMITIES: 2+ pulses, warm, well-perfused. No calf tenderness. Trace bilateral lower extremity edema. Laboratory Results - last 24 hr 12/04/17 12/04/17 12/04/17 11:12 11:12 11:12 WBC 6.9 RBC 3.99 Hgb 12.2 Hct 38.5 MCV 96.4 H MCH 30.6 MCHC 31.7 L RDW 14.5 Plt Count 229 MPV 8.6 Neutrophils % 74.2 Lymphocytes % 17.3 D Monocytes % 6.8 Eosinophils % 0.7 D Basophils % 1.0 D PT with INR INR PTT (Actin FS) VBG pH POC VBG pCO2 POC VBG pO2 Mixed VBG HCO3 Sodium 142 Potassium 4.4 Chloride 101 Carbon Dioxide 35 H Anion Gap 6 L BUN 21 H Creatinine 1.0 Creat Clearance w eGFR 54.20 Random Glucose 224 H Calcium 10.3 H Phosphorus 2.8 Magnesium 2.0 Total Bilirubin 0.2 D AST 16 D ALT 21 Alkaline Phosphatase 78 Creatine Kinase Troponin I B-Natriuretic Peptide 232.60 H Total Protein 6.4 Albumin 3.0 L Urine Color Urine Appearance Urine pH Ur Specific [place] Urine Protein Urine Glucose (UA) Urine Ketones Urine Blood Urine Nitrite Urine Bilirubin Urine Urobilinogen Ur Leukocyte Esterase 12/04/17 12/04/17 12/04/17 11:17 11:17 11:17 WBC RBC Hgb Hct MCV MCH MCHC RDW Plt Count MPV Neutrophils % Lymphocytes % Monocytes % Eosinophils % Basophils % PT with INR 11.40 INR 1.01 PTT (Actin FS) 28.1 VBG pH 7.36 POC VBG pCO2 67.9 H* POC VBG pO2 46.7 Mixed VBG HCO3 37.7 H Sodium Potassium Chloride Carbon Dioxide Anion Gap BUN Creatinine Creat Clearance w eGFR Random Glucose Calcium Phosphorus Magnesium Total Bilirubin AST ALT Alkaline Phosphatase Creatine Kinase 63 Troponin I < 0.02 B-Natriuretic Peptide Total Protein Albumin Urine Color Urine Appearance Urine pH Ur Specific [place] Urine Protein Urine Glucose (UA) Urine Ketones Urine Blood Urine Nitrite Urine Bilirubin Urine Urobilinogen Ur Leukocyte Esterase 12/04/17 12:30 WBC RBC Hgb Hct MCV MCH MCHC RDW Plt Count MPV Neutrophils % Lymphocytes % Monocytes % Eosinophils % Basophils % PT with INR INR PTT (Actin FS) VBG pH POC VBG pCO2 POC VBG pO2 Mixed VBG HCO3 Sodium Potassium Chloride Carbon Dioxide Anion Gap BUN Creatinine Creat Clearance w eGFR Random Glucose Calcium Phosphorus Magnesium Total Bilirubin AST ALT Alkaline Phosphatase Creatine Kinase Troponin I B-Natriuretic Peptide Total Protein Albumin Urine Color Yellow Urine Appearance Clear Urine pH 5.0 Ur Specific [place] 1.016 Urine Protein Negative Urine Glucose (UA) Negative Urine Ketones Negative Urine Blood Negative Urine Nitrite Negative Urine Bilirubin Negative Urine Urobilinogen Negative Ur Leukocyte Esterase Negative ASSESSMENT/PLAN 72 year-old woman with a PMH significant for HTN, diastolic HF, CAD s/p stents, COPD oxygen dependent, IDDM and dementia. Admitted for respiratory failure secondary to pneumonia and CHF exacerbation. ER course was notable for: (1) afebrile, no leukocytosis (2) CXR: progressive left pleural effusion since 10/29/17; left base infiltrate; increased markings right hemithorax (2) Solumedrol 125mg x 1; azithro x 1; zosyn x 1; lasix IV 40mg x 1 (3) duonebs x 1 Hypercarbic, hypoxic respiratory failure --ABG 7.38/54/64 on 4L --BiPAP ordered but patient refusing --maintain SpO2>92% Altered mental status --likely multifactorial: hypercarbia, hypoxemia, worsening dementia Acute on chronic diastolic heart failure --05/2017 echo: impaired LV relaxation; RV normal; trace to mild AI --CXR: progressive left pleural effusion since 10/29/17, increased markings right hemithorax --Lasix IV x 40 x 1 given in ED; give another dose now, then Lasix IV 40mg BID --daily weights, strict I&Os Pneumonia --CXR: left base infiltrate --ceftriaxone, azithromycin --flu, urine antigens ordered COPD exacerbation --Solumedrol IV 40 q8h --duonebs --inhalers Hypertension --continue Losartan/HCTZ, Toprol XL, amlodipine Coronary artery disease s/p stents --continue Toprol XL, Ranexa, amlodipine, ASA IDDM --Novolog sliding scale coverage Dementia --continue home Risperdal DVT prophylaxis: subq heparin Visit type - Emergency Visit Emergency Visit: Yes ED Registration Date: 12/04/17 Care time: The patient presented to the Emergency Department on the above date and was hospitalized for further evaluation of their emergent condition. - New Patient This patient is new to me today: Yes Date on this admission: 12/05/17 - Critical Care Critical Care patient: No
[2017-12-04] MEDS ORDERED: OLANZapine 10 MG TABLET ONE (15:33)
[2017-12-04 17:33] LABS: ARTERIAL BLD GAS O2 SATURATION 87.1 % (90-98.9); ARTERIAL BLOOD GAS PCO2 64.5 mmHg (35-45); ARTERIAL BLOOD GAS PO2 54.4 mmHg (70-100); ARTERIAL BLOOD GAS pH 7.38 (7.35-7.45)
[2017-12-04 17:39] LABS: ALLENS TEST POSITIVE
[2017-12-04] MEDS: INSULIN SLIDING SCALE (NOVOLOG) 1 VIAL SQ SCH ×2 (17:40→22:42)
[2017-12-04] MEDS ORDERED: LORazepam 2 MG/ML SDV VIAL ONE (18:36)
[2017-12-04] MEDS ORDERED: LORazepam 2 MG/ML SDV VIAL IVPUSH ONE (18:45)
[2017-12-04] MEDS: ALBUTEROL SO4 2.5/IPRATROPIUM 0.5 INH SOL 3 ML VIAL.NEB. NEB SCH (20:13)
[2017-12-04] MEDS ORDERED: PT OWN MED DRAWER 7, Y5N ONE (22:31)
[2017-12-04] MEDS: HEPARIN NA (PORCINE) 5,000 UNITS/ML 1ML VIAL SQ SCH (22:39)
[2017-12-04] MEDS: risperiDONE 1 MG TABLET (FP) PO SCH (22:39)
[2017-12-04] MEDS: amLODIPine BESYLATE 10 MG TABLET (FP) PO SCH (22:39)
[2017-12-04] MEDS: GABAPENTIN 300 MG CAPSULE (FP) PO SCH (22:39)
[2017-12-04] MEDS: BUDESONIDE/FORMETEROL FUMARATE 80/4.5 mcg INHALER IH SCH (23:30)
[2017-12-04] MEDS: RANOLAZINE E.R. 500 MG TABLET (FP) PO SCH (23:31)
[2017-12-05] MEDS: HEPARIN NA (PORCINE) 5,000 UNITS/ML 1ML VIAL SQ SCH ×3 (06:02→21:10)
[2017-12-05] MEDS: FUROSEMIDE 40 MG/4 ML INJECTABLE VIAL IVPUSH SCH ×2 (06:02→15:07)
[2017-12-05] MEDS: INSULIN SLIDING SCALE (NOVOLOG) 1 VIAL SQ SCH ×4 (06:39→22:15)
[2017-12-05] MEDS: ALBUTEROL SO4 2.5/IPRATROPIUM 0.5 INH SOL 3 ML VIAL.NEB. NEB SCH ×4 (07:13→21:00)
[2017-12-05 07:30] LABS: BASO % 0.3 % (0-2.0); HEMATOCRIT 37.9 % (32.4-45.2); HEMOGLOBIN 11.9 GM/dL (10.7-15.3); LYMPH % 10.6 % (8-40); MCH 30.1 pg (25.7-33.7); MCHC 31.5 g/dl (32.0-36.0); MEAN CELL VOLUME 95.7 fl (80-96); MEAN PLT VOLUME 8.7 fl (7.5-11.1); MONO % 4.9 % (3.8-10.2); NEUT % 84.2 % (42.8-82.8); PLATELET COUNT 219 K/MM3 (134-434); RBC 3.96 M/mm3 (3.60-5.2); RDW 14.3 % (11.6-15.6); WHITE BLOOD COUNT 7.9 K/mm3 (4.0-10.0)
[2017-12-05 08:34] LABS: ALBUMIN 2.7 g/dl (3.4-5.0); ANION GAP 4 (8-16); BILIRUBIN,TOTAL 0.3 mg/dL (0.2-1.0); BLOOD UREA NITROGEN 23 mg/dL (7-18); CALCIUM 10.2 mg/dL (8.5-10.1); CHLORIDE 100 mmol/L (98-107); CO2 38 mmol/L (21-32); GLUCOSE,RANDOM 185 mg/dL (74-106); MAGNESIUM 2.1 mg/dL (1.8-2.4); POTASSIUM 3.8 mmol/L (3.5-5.1); SGOT/AST 7 U/L (15-37); SGPT/ALT 18 U/L (12-78); SODIUM 142 mmol/L (136-145); TOT PROT 6.3 g/dl (6.4-8.2)
[2017-12-05 08:35] LABS: ALK PHOS 69 U/L (45-117)
[2017-12-05] MEDS ORDERED: PT OWN MED DRAWER 7, Y5N ONE ×2 (09:30→21:43)
[2017-12-05] MEDS: CEFTRIAXONE 1 G/50 ML PREMIX 50 ML IVPB SCH (09:32)
[2017-12-05] MEDS: BUDESONIDE/FORMETEROL FUMARATE 80/4.5 mcg INHALER IH SCH ×2 (09:33→22:09)
[2017-12-05] MEDS: ASPIRIN 81 MG CHEWABLE TABLETS PO SCH (09:37)
[2017-12-05] MEDS: LOSARTAN 50MG/HCTZ 12.5MG 1 TAB (FP) PO SCH (09:37)
[2017-12-05] MEDS: METOPROLOL SUCCINATE 100 MG TAB.SR.24H (FP) PO SCH (09:37)
[2017-12-05] MEDS: PANTOPRAZOLE 40 MG TABLET (FP) PO SCH (09:37)
[2017-12-05] MEDS: RANOLAZINE E.R. 500 MG TABLET (FP) PO SCH ×2 (09:38→22:10)
[2017-12-05] MEDS: POLYETHYLENE GLYCOL 3350 119 GM BTL PO SCH (09:38)
[2017-12-05] MEDS ORDERED: ALBUTEROL SO4 0.083% IH SOL 2.5 MG/3 ML VIAL.NEB. NEB ONE (09:55)
[2017-12-05] MEDS ORDERED: methylPREDNISolone NA SUCC 40 MG/1 ML VIAL IVPUSH SCH (10:00)
[2017-12-05] MEDS ORDERED: FUROSEMIDE 20 MG TABLET (FP) PO SCH (10:00)
--- NOTE | 2017-12-05 10:22 | PN ---
Progress Note (short form) - Note Progress Note: Subjective: The patient was seen and examined at the bedside, she reports feeling much better today. Long discussion with daughter who would like to explore prison options including hospice. Current Medications Generic Name Dose Route Start Last Admin Trade Name Dylan PRN Reason Stop Dose Admin Albuterol/Ipratropium 1 amp 12/04/17 20:00 12/05/17 07:13 Duoneb - NEB 1 amp RQID IVANIA Administration Amlodipine Besylate 10 mg 12/04/17 22:00 12/04/17 22:39 Norvasc - PO 10 mg HS IVANIA Administration Aspirin 81 mg 12/05/17 10:00 12/05/17 09:37 Asa - PO 81 mg DAILY IVANIA Administration Budesonide/Formoterol Fumarate 2 puff 12/04/17 22:00 12/05/17 09:33 Symbicort 80/4.5mcg - IH 2 puff BID IVANIA Administration Furosemide 40 mg 12/05/17 06:00 12/05/17 06:02 Lasix Injection - IVPUSH 40 mg BID@0600,1400 IVANIA Administration Gabapentin 300 mg 12/04/17 22:00 12/04/17 22:39 Neurontin - PO 300 mg HS IVANIA Administration HCTZ/Losartan Potassium 1 tab 12/05/17 10:00 12/05/17 09:37 Hyzaar - PO 1 tab DAILY IVANIA Administration Heparin Sodium (Porcine) 5,000 unit 12/04/17 22:00 12/05/17 06:02 Heparin - SQ 5,000 unit TID IVANIA Administration Azithromycin 250 mg/ Dextrose 250 mls @ 250 mls/hr 12/05/17 10:00 IVPB 12/08/17 10:59 DAILY IVANIA CEFTRIAXONE 1 G/50 ML PREMIX 50 mls @ 100 mls/hr 12/05/17 10:00 12/05/17 09: 32 Ceftriaxone 1 Gm-D5w Bag IVPB 100 mls/hr DAILY IVANIA Administration Insulin Aspart 1 vial 12/04/17 22:00 12/05/17 06:39 Novolog Vial Sliding Scale - SQ 4 units ACHS IVANIA Administration Protocol Methylprednisolone Sodium Succinate 40 mg 12/05/17 10:00 12/05/17 09:35 Solu-Medrol - IVPUSH 40 mg Q8H-IV IVANIA Administration Metoprolol Succinate 100 mg 12/05/17 10:00 01/08/18 09:37 Toprol Xl - PO 100 mg DAILY IVANIA Administration Pantoprazole Sodium 40 mg 12/05/17 10:00 12/05/17 09:37 Protonix - PO 40 mg DAILY IVANIA Administration Polyethylene Glycol 17 gm 12/05/17 10:00 12/05/17 09:38 Miralax (For Daily Use) - PO Not Given DAILY IVANIA Ranolazine 500 mg 12/04/17 22:00 12/05/17 09:38 Ranexa - PO 500 mg BID IVANIA Administration Risperidone 1 mg 12/04/17 22:00 12/04/17 22:39 Risperdal - PO 1 mg HS IVANIA Administration Objective: Vital Signs Period Temp Pulse Resp BP Sys/Cox Pulse Ox Last 24 Hr 98.1 F-98.4 F 85-98 22-24 107-134/70-84 91-98 Physical Exam: General: NAD, A&Ox1 (person only) HEENT: moonshine face Lungs: End expiratory wheezing bilaterally Heart: RRR, S1S2 Abd: Soft, non-tender, non-distended. Ext: B/l lower extremity 2+ DP/PT. No edema CBCD WBC 7.9 K/mm3 (4.0-10.0) 12/05/17 07:00 RBC 3.96 M/mm3 (3.60-5.2) 12/05/17 07:00 Hgb 11.9 GM/dL (10.7-15.3) 12/05/17 07:00 Hct 37.9 % (32.4-45.2) 12/05/17 07:00 MCV 95.7 fl (80-96) 12/05/17 07:00 MCHC 31.5 g/dl (32.0-36.0) L 12/05/17 07:00 RDW 14.3 % (11.6-15.6) 12/05/17 07:00 Plt Count 219 K/MM3 (134-434) 12/05/17 07:00 MPV 8.7 fl (7.5-11.1) 12/05/17 07:00 CMP Sodium 142 mmol/L (136-145) 12/05/17 07:00 Potassium 3.8 mmol/L (3.5-5.1) 12/05/17 07:00 Chloride 100 mmol/L (98-107) 12/05/17 07:00 Carbon Dioxide 38 mmol/L (21-32) H 12/05/17 07:00 Anion Gap 4 (8-16) L 12/05/17 07:00 BUN 23 mg/dL (7-18) H 12/05/17 07:00 Creatinine 1.0 mg/dL (0.55-1.02) 12/05/17 07:00 Creat Clearance w eGFR 54.20 (>60) 12/05/17 07:00 Random Glucose 185 mg/dL (74-106) H 12/05/17 07:00 Calcium 10.2 mg/dL (8.5-10.1) H 12/05/17 07:00 Total Bilirubin 0.3 mg/dL (0.2-1.0) D 12/05/17 07:00 AST 7 U/L (15-37) L D 12/05/17 07:00 ALT 18 U/L (12-78) 12/05/17 07:00 Alkaline Phosphatase 69 U/L (45-117) 12/05/17 07:00 Total Protein 6.3 g/dl (6.4-8.2) L 12/05/17 07:00 Albumin 2.7 g/dl (3.4-5.0) L 12/05/17 07:00 CARDIAC ENZYMES Creatine Kinase 63 IU/L (26-192) 12/04/17 11:17 Troponin I < 0.02 ng/ml (0.00-0.05) 12/04/17 11:17 Microbiology 12/04/17 12:30 Urine - Urine Clean Catch Urine Culture - Final Contaminated: Please Repeat Assessment: This is a 72 year old female with PMHx of HTN, diastolic heart failure, CAD s/p stents, COPD (on O2 at home), IDDM, dementia, who presented to the ED with confusion and weakness Plan: 1) Acute hypercapnic, hypoxic respiratory failure 2/2 COPD - O2 as needed, patient refusing bipap. Attempt ventimask or nasal cannula - Duonebs - Continue Symbicort - Solu-medrol 40mg q8h - F/u pulmonary consult 2) Left base pneumonia - WBC WNL, afebrile - Continue Ceftriaxone - Continue Azithromycin - F/u urine legionella Ag 3) Altered mental status - Likely 2/2 worsening dementia vs. hypercapnia - Continue to monitor 4) Acute on chronic diastolic heart failure - ECHO 05/2017 with impaired LV relaxation, normal RV, trace to mild AI - Chest x-ray 12/04/17: progressive left pleural effusion - Strict I&O - Daily weight: down from previous admission - Continue Lasix 40mg bid, monitor Cr - F/u cardiology consult 5) Dementia - Continue Risperdal - Ativan given for agitation 6) IDDM - BGM ACHS - ISS ACHS 7) F/E/N: - Diabetic, low sodium diet - Monitor electrolytes 8) Prophylaxis: - Heparin 5,000u sq tid - PT evaluation 9) Dispo: - Requires continued inpatient care - Daughter would like to discuss pier worker care options, she states she is no longer able to take care of her mom at home CODE STATUS: DNR/DNI Visit type - Emergency Visit Emergency Visit: Yes ED Registration Date: 12/04/17 Care time: The patient presented to the Emergency Department on the above date and was hospitalized for further evaluation of their emergent condition. - New Patient This patient is new to me today: Yes Date on this admission: 12/05/17 - Critical Care Critical Care patient: No
[2017-12-05] MEDS: AZITHROMYCIN IVPB 250 MG in DEXTROSE 5%-WATER - 250 ML IVPB SCH (11:34)
[2017-12-05] MEDS ORDERED: LORazepam 2 MG/ML SDV VIAL IVPB ONE (12:25)
--- NOTE | 2017-12-05 12:45 | EKG ---
Test Reason : Blood Pressure : / mmHG Vent. Rate : 090 BPM Atrial Rate : 090 BPM P-R Int : 144 ms QRS Dur : 140 ms QT Int : 384 ms P-R-T Axes : 059 269 032 degrees QTc Int : 469 ms NORMAL SINUS RHYTHM RIGHT BUNDLE BRANCH BLOCK , PLUS RIGHT VENTRICULAR HYPERTROPHY ABNORMAL ECG WHEN COMPARED WITH ECG OF 25-OCT-2017 23:36, NO SIGNIFICANT CHANGE WAS FOUND Confirmed by AMY KRISHNAMURTHY, MANDA ([id number]) on 12/05/2017 12:45:08 PM Referred By: Confirmed By:MANDA REYES MD
--- NOTE | 2017-12-05 13:05 | CON.PULM ---
Consult Consult Specialty:: PULMONARY Referred by:: BAM Yousif Reason for Consultation:: COPD - History of Present Illness Chief Complaint: altered mental status History of Present Illness: 72yo female with h/o HTN, CAD s/p stents, COPD, chronic hypoxic and hypercapneic respiratory failure, LV diastolic dysfunction, DM, dementia who was admitted with generalized weakness and altered mental status. Reported to be hypoxic to 70s even on home O2. Multiple previous admissions for similar presentations. Given lasix and solumedrol with improvement in symptoms. CXR consistent with CHF with left pleural effusion. - History Source History Provided By: Patient, Medical Record Limitations to Obtaining History: Dementia - Past Medical History DIRECTOR OF RADIO SERVICES: Yes: Dementia Cardio/Vascular: Yes: CAD, CHF, HTN Pulmonary: Yes: COPD, Sleep Apnea Renal/: Yes: Renal Inusuff Rheumatology: Yes: Rheumatoid Arthritis Endocrine: Yes: Diabetes Mellitus - Past Surgical History Past Surgical History: Yes: Hysterectomy, Appendectomy, Cholecystectomy - Alcohol/Substance Use Hx Alcohol Use: No History of Substance Use: reports: None - Smoking History Smoking history: Former smoker Have you smoked in the past 12 months: No Aproximately how many cigarettes per day: 3 If you are a former smoker, when did you quit?: 6 months - Social History Usual Living Arrangement: With Child ADL: Family Assistance History of Recent Travel: No Home Medications - Allergies Allergies/Adverse Reactions: Allergies Allergy/AdvReac Type Severity Reaction Status Date / Time No Known Allergies Allergy Verified 12/04/17 10:31 - Home Medications Home Medications: Ambulatory Orders Amlodipine Besylate [Norvasc -] 10 mg PO HS 10/25/17 Aspirin [ASA -] 81 mg PO DAILY 10/25/17 Fluticasone Propionate 50 mcg NS DAILY 10/25/17 Gabapentin [Neurontin] 300 mg PO HS 10/25/17 Glipizide [Glipizide ER] 5 mg PO DAILY 10/25/17 Metoprolol Succinate [Toprol Xl] 100 mg PO DAILY 10/25/17 Multivitamin [One Daily] 1 each PO DAILY 10/25/17 Omeprazole 40 mg PO DAILY 10/25/17 Ranolazine [Ranexa] 500 mg PO BID 10/25/17 Risperidone [Risperdal] 1 mg PO HS 10/25/17 Albuterol 2.5/Ipratropium 0.5 [Duoneb -] 1 amp NEB QIDR amp 10/31/17 Budesonide/Formeterol Fumarate [SYMBICORT 80/4.5mcg -] 2 puff IH BID #1 inhaler 10/31/17 Furosemide [Lasix -] 20 mg PO DAILY #30 tablet 10/31/17 Losartan 50Mg/Hctz 12.5MG [Hyzaar -] 1 tab PO DAILY #30 tablet 10/31/17 Polyethylene Glycol 3350 [Miralax 119 gm Btl -] 17 gm PO DAILY bottle 10/31/17 Insulin (LOG) Aspart [NovoLOG -] 5 units BID 12/04/17 Family Disease History - Family Disease History Family Disease History: Heart Disease: Father, Brother, Sister Review of Systems - Review of Systems Constitutional: denies: Chills, Fever Eyes: denies: Recent Change in Vision HENT: denies: Nasal Congestion, Throat Pain Neck: denies: Stiffness, Tenderness Cardiovascular: reports: Edema, Shortness of Breath. denies: Chest Pain, Palpitations Respiratory: reports: Cough, SOB on Exertion, Wheezing Gastrointestinal: denies: Abdominal Pain, Nausea, Vomiting Genitourinary: denies: Dysuria, Hematuria Neurological: denies: Dizziness, Headache Physical Exam Vital Sings: Vital Signs Temperature 98.1 F 12/05/17 06:00 Pulse Rate 98 H 12/05/17 10:14 Respiratory Rate 22 12/05/17 06:00 Blood Pressure 128/72 12/05/17 06:00 O2 Sat by Pulse Oximetry (%) 93 L 12/05/17 10:14 Constitutional: Yes: Other (agitated) Eyes: Yes: Conjunctiva Clear, EOM Intact HENT: Yes: Atraumatic, Normocephalic Neck: Yes: Supple, Trachea Midline Cardiovascular: Yes: Regular Rate and Rhythm Respiratory: Yes: Rales (left base) ...Clubbing: No Gastrointestinal: Yes: Normal Bowel Sounds, Soft. No: Tenderness Edema: Yes (distal) Neurological: Yes: Confusion Labs: CBC, BMP 12/05/17 07:00 12/05/17 07:00 ABG Results ABG pH 7.38 (7.35-7.45) 12/04/17 17:27 ABG pCO2 at Pt Temp 64.5 mmHg (35-45) H* 12/04/17 17:27 ABG pO2 at Pt Temp 54.4 mmHg (70-100) L 12/04/17 17:27 ABG HCO3 37.0 meq/L (22-26) H 12/04/17 17:27 ABG O2 Sat (Measured) 87.1 % (90-98.9) L 12/04/17 17:27 ABG O2 Content 14.3 % vol (15-22) L 12/04/17 17:27 ABG Base Excess 10.0 meq/l (-2-2) H 12/04/17 17:27 Imaging - Results Chest X-ray: Report Reviewed, Image Reviewed (pulmonary vascular congestion, left effusion) Problem List - Problems (1) Acute on chronic respiratory failure with hypoxia and hypercapnia Code(s): J96.21 - ACUTE AND CHRONIC RESPIRATORY FAILURE WITH HYPOXIA; J96.22 - ACUTE AND CHRONIC RESPIRATORY FAILURE WITH HYPERCAPNIA (2) Acute on chronic diastolic CHF (congestive heart failure) Code(s): I50.33 - ACUTE ON CHRONIC DIASTOLIC (CONGESTIVE) HEART FAILURE (3) Diabetes mellitus Code(s): E11.9 - TYPE 2 DIABETES MELLITUS WITHOUT COMPLICATIONS Qualifiers: Diabetes mellitus type: type 2 Diabetes mellitus complication status: without complication Diabetes mellitus railways assistant insulin use: without railways assistant use Qualified Code(s): E11.9 - Type 2 diabetes mellitus without complications (4) Hypertension Code(s): I10 - ESSENTIAL (PRIMARY) HYPERTENSION Qualifiers: Hypertension type: essential hypertension Qualified Code(s): I10 - Essential (primary) hypertension (5) Morbid obesity Code(s): E66.01 - MORBID (SEVERE) OBESITY DUE TO EXCESS CALORIES Assessment/Plan Acute on Chronic Hypoxic and Hypercapneic Respiratory Failure Acute on Chronic Diastolic Heart Failure Pleural Effusion COPD HTN DM Dementia - IV lasix - monitor urine output, creatinine - rapid taper off steroids, less likely COPD exacerbation - O2 to keep SpO2 >88% - BiPAP if pt allows - inhaled bronchodilators - DVT prophylaxis Thank you for this consult Jayden James MD
--- NOTE | 2017-12-05 13:29 | CON.CARD ---
Consult Consult Specialty:: Cardiology Referred by:: Hospitalist Medicine Reason for Consultation:: Dyspnea - History of Present Illness Chief Complaint: Dyspnea History of Present Illness: Patient is a 72 year old female with underlying history of coronary artery disease post PCI, angina pectoris, hypertension, type 2 diabetes mellitus, COPD with history of exacerbation, chronic hypoxic and hypercapneic respiratory failure, LV diastolic dysfunction, rheumatoid arthritis, ascending aortic aneurysm, tobacco abuse and dementia who was admitted with generalized weakness , dyspnea and altered mental status. Found to be hypoxic saO2=70s even on home O2. Multiple previous admissions for similar presentations. Given lasix and solumedrol with improvement in symptoms. CXR consistent with CHF with left pleural effusion, reports diet and medication compliance. She denies chest pain , near or true syncope, palpitations, orthopnea, PND or LE edema. - History Source History Provided By: Medical Record Limitations to Obtaining History: Poor Historian - Past Medical History STORES DESPATCH HAND: Yes: Dementia Cardio/Vascular: Yes: CAD, CHF, HTN Pulmonary: Yes: COPD, Sleep Apnea Renal/: Yes: Renal Inusuff Rheumatology: Yes: Rheumatoid Arthritis Endocrine: Yes: Diabetes Mellitus - Past Surgical History Past Surgical History: Yes: Hysterectomy, Appendectomy, Cholecystectomy - Alcohol/Substance Use Hx Alcohol Use: No History of Substance Use: reports: None - Smoking History Smoking history: Former smoker Have you smoked in the past 12 months: No Aproximately how many cigarettes per day: 3 If you are a former smoker, when did you quit?: 6 months - Social History Usual Living Arrangement: With Child ADL: Family Assistance History of Recent Travel: No Home Medications - Allergies Allergies/Adverse Reactions: Allergies Allergy/AdvReac Type Severity Reaction Status Date / Time No Known Allergies Allergy Verified 12/04/17 10:31 - Home Medications Home Medications: Ambulatory Orders Amlodipine Besylate [Norvasc -] 10 mg PO HS 10/25/17 Aspirin [ASA -] 81 mg PO DAILY 10/25/17 Fluticasone Propionate 50 mcg NS DAILY 10/25/17 Gabapentin [Neurontin] 300 mg PO HS 10/25/17 Glipizide [Glipizide ER] 5 mg PO DAILY 10/25/17 Metoprolol Succinate [Toprol Xl] 100 mg PO DAILY 10/25/17 Multivitamin [One Daily] 1 each PO DAILY 10/25/17 Omeprazole 40 mg PO DAILY 10/25/17 Ranolazine [Ranexa] 500 mg PO BID 10/25/17 Risperidone [Risperdal] 1 mg PO HS 10/25/17 Albuterol 2.5/Ipratropium 0.5 [Duoneb -] 1 amp NEB QIDR amp 10/31/17 Budesonide/Formeterol Fumarate [SYMBICORT 80/4.5mcg -] 2 puff IH BID #1 inhaler 10/31/17 Furosemide [Lasix -] 20 mg PO DAILY #30 tablet 10/31/17 Losartan 50Mg/Hctz 12.5MG [Hyzaar -] 1 tab PO DAILY #30 tablet 10/31/17 Polyethylene Glycol 3350 [Miralax 119 gm Btl -] 17 gm PO DAILY bottle 10/31/17 Insulin (LOG) Aspart [NovoLOG -] 5 units BID 12/04/17 Family Disease History - Family Disease History Family Disease History: Heart Disease: Father, Brother, Sister Review of Systems - Review of Systems Constitutional: reports: Lethargy Respiratory: reports: SOB Neurological: reports: Confusion Vital Signs: Vital Signs Temperature 98.2 F 12/05/17 10:00 Pulse Rate 98 H 12/05/17 10:14 Respiratory Rate 24 12/05/17 10:00 Blood Pressure 159/86 12/05/17 10:00 O2 Sat by Pulse Oximetry (%) 93 L 12/05/17 10:14 Constitutional: Yes: No Distress, Calm Neck: Yes: Supple Respiratory: Yes: Regular, Diminished, On Nasal O2 Gastrointestinal: Yes: Soft, Abdomen, Obese, Hypoactive Bowel Sounds Cardiovascular: Yes: Regular Rate and Rhythm JVD: No Carotid Bruit: No Heart Sounds: Yes: S1, S2 Murmur: Yes: Systolic Murmur, Grade 1 Edema: Yes Edema: LLE: Trace, RLE: Trace - Other Data Labs, Other Data: CBC, BMP 12/05/17 07:00 12/05/17 07:00 INR, PTT INR 1.01 (0.82-1.09) 12/04/17 11:17 NSR @ 90 RBBB, RVH Ejection Fraction %: LVEF > or = 40 % Imaging - Results Chest X-ray: Report Reviewed (Left effusion with left base infiltrate) Cat Scan: Report Reviewed (HCT: Cerebrovascular disease with old lacunar infarct ) Problem List - Problems (1) COPD (chronic obstructive pulmonary disease) Code(s): J44.9 - CHRONIC OBSTRUCTIVE PULMONARY DISEASE, UNSPECIFIED Qualifiers: COPD type: unspecified COPD Qualified Code(s): J44.9 - Chronic obstructive pulmonary disease, unspecified (2) Acute on chronic diastolic CHF (congestive heart failure) Code(s): I50.33 - ACUTE ON CHRONIC DIASTOLIC (CONGESTIVE) HEART FAILURE (3) Acute on chronic respiratory failure with hypoxia and hypercapnia Code(s): J96.21 - ACUTE AND CHRONIC RESPIRATORY FAILURE WITH HYPOXIA; J96.22 - ACUTE AND CHRONIC RESPIRATORY FAILURE WITH HYPERCAPNIA (4) Diabetes mellitus Code(s): E11.9 - TYPE 2 DIABETES MELLITUS WITHOUT COMPLICATIONS Qualifiers: Diabetes mellitus type: type 2 Diabetes mellitus complication status: without complication Diabetes mellitus fpc insulin use: without meterman use Qualified Code(s): E11.9 - Type 2 diabetes mellitus without complications (5) Hypertension Code(s): I10 - ESSENTIAL (PRIMARY) HYPERTENSION Qualifiers: Hypertension type: essential hypertension Qualified Code(s): I10 - Essential (primary) hypertension (6) Morbid obesity Code(s): E66.01 - MORBID (SEVERE) OBESITY DUE TO EXCESS CALORIES (7) Right bundle branch block (RBBB) Code(s): I45.10 - UNSPECIFIED RIGHT BUNDLE-BRANCH BLOCK (8) Pleural effusion due to CHF (congestive heart failure) Code(s): I50.9 - HEART FAILURE, UNSPECIFIED Assessment/Plan Echocardiography performed 06/14/2017 revealed Normal LV size and function, abnormal left ventricular compliance, mild aortic dilatation And no significant valve abnormality 1. Acute on chronic hypercapenic, hypoxemic respiratory failure related to 2. Acute on Chronic left ventricular diastolic failure with pleural effusion 3. Coronary artery disease angina pectoris 4. COPD not in flare 5. Hypertension/hypertensive cardiovascular disease 6. Diabetes mellitus 7. Hypercholesterolemia 8. Ascending thoracic aortic aneurysm 9. Complete right bundle branch block 10. History of obstructive sleep apnea 11. History of rheumatoid arthritis 12. Prior history of GI bleed 13. Prior history of tobacco abuse PLAN: 1. Continue IV Lasix therapy with close monitoring of diuretic response, renal function and electrolytes 2. Continue Hyzaar 50/12.5 qd, Norvasc 10 qd 3. Continue Toprol-XL 100 qd 4. Continue Ranexa 500 bid 5. Continue Aspirin 81 qd 6. Continue bronchodilator, O2 to keep SpO2 >88%, Bipap as needed and rapid steroid taper as per pulmonary service 7. DVT prophylaxis 8. Thank you for consultative opportunity
[2017-12-05] MEDS: HALOPERIDOL LACTATE 5 MG/ML IM PRN ×2 (13:57→22:45)
[2017-12-05] MEDS ORDERED: INSULIN (NOVOLOG) ASPART 100 UNITS/ML 10ML VIAL ONE (20:43)
[2017-12-05] MEDS: GABAPENTIN 300 MG CAPSULE (FP) PO SCH (21:11)
[2017-12-05] MEDS: risperiDONE 1 MG TABLET (FP) PO SCH (22:10)
[2017-12-05] MEDS: amLODIPine BESYLATE 10 MG TABLET (FP) PO SCH (22:11)
[2017-12-05] MEDS ORDERED: LORazepam 2 MG/ML SDV VIAL IVPUSH ONE (22:45)
[2017-12-06] MEDS: FUROSEMIDE 40 MG/4 ML INJECTABLE VIAL IVPUSH SCH ×2 (06:19→13:27)
[2017-12-06] MEDS: HEPARIN NA (PORCINE) 5,000 UNITS/ML 1ML VIAL SQ SCH ×3 (06:19→21:00)
[2017-12-06] MEDS: INSULIN SLIDING SCALE (NOVOLOG) 1 VIAL SQ SCH ×4 (06:27→21:16)
[2017-12-06] MEDS: ALBUTEROL SO4 2.5/IPRATROPIUM 0.5 INH SOL 3 ML VIAL.NEB. NEB SCH ×4 (07:13→20:10)
[2017-12-06 08:38] LABS: HEMATOCRIT 40.7 % (32.4-45.2); HEMOGLOBIN 12.8 GM/dL (10.7-15.3); MCH 30.1 pg (25.7-33.7); MCHC 31.5 g/dl (32.0-36.0); MEAN CELL VOLUME 95.7 fl (80-96); MEAN PLT VOLUME 8.6 fl (7.5-11.1); PLATELET COUNT 249 K/MM3 (134-434); RBC 4.26 M/mm3 (3.60-5.2); RDW 14.9 % (11.6-15.6); WHITE BLOOD COUNT 7.9 K/mm3 (4.0-10.0)
[2017-12-06 09:07] LABS: ANION GAP 5 (8-16); BLOOD UREA NITROGEN 28 mg/dL (7-18); CALCIUM 10.7 mg/dL (8.5-10.1); CHLORIDE 98 mmol/L (98-107); CO2 37 mmol/L (21-32); GLUCOSE,RANDOM 134 mg/dL (74-106); POTASSIUM 3.3 mmol/L (3.5-5.1); SODIUM 140 mmol/L (136-145)
[2017-12-06] MEDS: AZITHROMYCIN IVPB 250 MG in DEXTROSE 5%-WATER - 250 ML IVPB SCH (09:09)
[2017-12-06 09:12] LABS: ALK PHOS 75 U/L (45-117); BILIRUBIN,TOTAL 0.5 mg/dL (0.2-1.0); CREATININE 1.1 mg/dL (0.55-1.02); SGOT/AST 12 U/L (15-37); SGPT/ALT 22 U/L (12-78); TOT PROT 6.9 g/dl (6.4-8.2)
[2017-12-06] MEDS: PANTOPRAZOLE 40 MG TABLET (FP) PO SCH (11:21)
[2017-12-06] MEDS: ASPIRIN 81 MG CHEWABLE TABLETS PO SCH (11:21)
[2017-12-06] MEDS: CEFTRIAXONE 1 G/50 ML PREMIX 50 ML IVPB SCH (11:21)
[2017-12-06] MEDS: methylPREDNISolone NA SUCC 40 MG/1 ML VIAL IVPUSH SCH (11:21)
[2017-12-06] MEDS: LOSARTAN 50MG/HCTZ 12.5MG 1 TAB (FP) PO SCH (11:22)
[2017-12-06] MEDS: RANOLAZINE E.R. 500 MG TABLET (FP) PO SCH ×2 (11:22→21:00)
[2017-12-06] MEDS: POLYETHYLENE GLYCOL 3350 119 GM BTL PO SCH (11:22)
[2017-12-06] MEDS: BUDESONIDE/FORMETEROL FUMARATE 80/4.5 mcg INHALER IH SCH ×2 (11:22→21:01)
[2017-12-06] MEDS: METOPROLOL SUCCINATE 100 MG TAB.SR.24H (FP) PO SCH (11:22)
--- NOTE | 2017-12-06 11:59 | PN ---
Progress Note, Physician Chief Complaint: Events noted Feels better today History of Present Illness: Patient was seen and examined. Awake. Chart was reviewed Denies chest pain or palpitations Less SOB and cough - Current Medication List Current Medications: Active Medications Albuterol/Ipratropium (Duoneb -) 1 amp NEB RQID [facility] Last Admin: 12/06/17 07:13 Dose: 1 amp Amlodipine Besylate (Norvasc -) 10 mg PO HS [facility] Last Admin: 12/05/17 22:11 Dose: 10 mg Aspirin (Asa -) 81 mg PO DAILY [facility] Last Admin: 12/06/17 11:21 Dose: 81 mg Budesonide/Formoterol Fumarate (Symbicort 80/4.5mcg -) 2 puff IH BID [facility] Last Admin: 12/06/17 11:22 Dose: 2 puff Furosemide (Lasix Injection -) 40 mg IVPUSH BID@0600,1400 [facility] Last Admin: 12/06/17 06:19 Dose: 40 mg Gabapentin (Neurontin -) 300 mg PO HS [facility] Last Admin: 12/05/17 21:11 Dose: 300 mg HCTZ/Losartan Potassium (Hyzaar -) 1 tab PO DAILY [facility] Last Admin: 12/06/17 11:22 Dose: 1 tab Haloperidol (Haldol Injection (Fast Acting) -) 5 mg IM Q8H PRN PRN Reason: AGITATION Last Admin: 12/05/17 22:45 Dose: 5 mg Heparin Sodium (Porcine) (Heparin -) 5,000 unit SQ TID [facility] Last Admin: 12/06/17 06:19 Dose: 5,000 unit Azithromycin 250 mg/ Dextrose 250 mls @ 250 mls/hr IVPB DAILY [facility] Stop: 12/08/17 10:59 Last Admin: 12/06/17 09:09 Dose: 250 mls/hr CEFTRIAXONE 1 G/50 ML PREMIX (Ceftriaxone 1 Gm-D5w Bag) 50 mls @ 100 mls/hr IVPB DAILY [facility] Last Admin: 12/06/17 11:21 Dose: 100 mls/hr Insulin Aspart (Novolog Vial Sliding Scale -) 1 vial SQ ACHS [facility] PRN Reason: Protocol Last Admin: 12/06/17 11:32 Dose: 4 units Methylprednisolone Sodium Succinate (Solu-Medrol -) 40 mg IVPUSH DAILY [facility] Last Admin: 12/06/17 11:21 Dose: 40 mg Metoprolol Succinate (Toprol Xl -) 100 mg PO DAILY [facility] Last Admin: 12/06/17 11:22 Dose: 100 mg Pantoprazole Sodium (Protonix -) 40 mg PO DAILY [facility] Last Admin: 12/06/17 11:21 Dose: 40 mg Polyethylene Glycol (Miralax (For Daily Use) -) 17 gm PO DAILY [facility] Last Admin: 12/06/17 11:22 Dose: Not Given Ranolazine (Ranexa -) 500 mg PO BID [facility] Last Admin: 12/06/17 11:22 Dose: 500 mg Risperidone (Risperdal -) 1 mg PO HS [facility] Last Admin: 12/05/17 22:10 Dose: 1 mg - Objective Vital Signs: Vital Signs Temperature 98.2 F 12/06/17 09:00 Pulse Rate 88 12/06/17 09:00 Respiratory Rate 20 12/06/17 09:00 Blood Pressure 127/69 12/06/17 09:00 O2 Sat by Pulse Oximetry (%) 91 L 12/06/17 00:21 Eyes: Yes: PERRL HENT: Yes: Atraumatic Neck: Yes: Supple Cardiovascular: Yes: Regular Rate and Rhythm, Murmur (Soft SM), S1, S2 Respiratory: Yes: Diminished Gastrointestinal: Yes: Normal Bowel Sounds, Soft. No: Tenderness Edema: No Additional Findings/Remarks: - Review of Systems Constitutional: denies: Chills, Fever Cardiovascular: reports: Shortness of Breath. denies: Chest Pain, Palpitations Respiratory: reports: Cough, SOB. denies: Hemoptysis, Orthopnea, PND Gastrointestinal: denies: Abdominal Pain, Constipation, Diarrhea, Melena, Nausea , Rectal Bleeding, Vomiting Genitourinary: denies: Dysuria Musculoskeletal: denies: Joint Pain Neurological: denies: Dizziness, Headache, Seizure, Syncope, Weakness Labs: CBC, BMP 12/06/17 07:45 12/06/17 07:45 INR, PTT INR 1.01 (0.82-1.09) 12/04/17 11:17 Problem List - Problems (1) Acute on chronic diastolic CHF (congestive heart failure) Code(s): I50.33 - ACUTE ON CHRONIC DIASTOLIC (CONGESTIVE) HEART FAILURE (2) COPD (chronic obstructive pulmonary disease) Code(s): J44.9 - CHRONIC OBSTRUCTIVE PULMONARY DISEASE, UNSPECIFIED Qualifiers: COPD type: unspecified COPD Qualified Code(s): J44.9 - Chronic obstructive pulmonary disease, unspecified (3) Pleural effusion due to CHF (congestive heart failure) Code(s): I50.9 - HEART FAILURE, UNSPECIFIED (4) Diabetes mellitus Code(s): E11.9 - TYPE 2 DIABETES MELLITUS WITHOUT COMPLICATIONS Qualifiers: Diabetes mellitus type: type 2 Diabetes mellitus complication status: without complication Diabetes mellitus oil heaterman insulin use: without oil heaterman use Qualified Code(s): E11.9 - Type 2 diabetes mellitus without complications (5) Hypertension Code(s): I10 - ESSENTIAL (PRIMARY) HYPERTENSION Qualifiers: Hypertension type: essential hypertension Qualified Code(s): I10 - Essential (primary) hypertension (6) Right bundle branch block (RBBB) Code(s): I45.10 - UNSPECIFIED RIGHT BUNDLE-BRANCH BLOCK (7) Hypercholesterolemia Code(s): E78.00 - PURE HYPERCHOLESTEROLEMIA, UNSPECIFIED (8) Obstructive sleep apnea Code(s): G47.33 - OBSTRUCTIVE SLEEP APNEA (ADULT) (PEDIATRIC) Assessment/Plan 1. Acute on chronic hypercapenic, hypoxemic respiratory failure 2. Acute on Chronic left ventricular diastolic failure with pleural effusion 3. Coronary artery disease angina pectoris 4. COPD 5. Hypertension/hypertensive cardiovascular disease 6. Diabetes mellitus 7. Hypercholesterolemia 8. Ascending thoracic aortic aneurysm 9. Complete right bundle branch block 10. History of obstructive sleep apnea 11. History of rheumatoid arthritis 12. Prior history of GI bleed PLAN: 1. Continue IV Lasix therapy with close monitoring of renal function and electrolytes 2. Continue Hyzaar 50/12.5 qd, Norvasc 10 qd and Toprol-XL 100 qd 3. Continue Ranexa 500 bid 4. Continue Aspirin 81 qd 5. Continue bronchodilator, O2, Bipap as tolerated and steroid taper as per pulmonary service 6. DVT prophylaxis Spoke with daughter by bedside. shell worker advice regarding placement as daughter wants her mother to be placed in a possible nursing facility Neto Valdez MD
[2017-12-06] MEDS: HALOPERIDOL LACTATE 5 MG/ML IM PRN (14:41)
--- NOTE | 2017-12-06 16:05 | PN ---
Progress Note (short form) - Note Progress Note: Subjective: The patient was seen and examined at the bedside, she reports feeling much better today. Current Medications Generic Name Dose Route Start Last Admin Trade Name Dylan PRN Reason Stop Dose Admin Albuterol/Ipratropium 1 amp 12/04/17 20:00 12/06/17 10:45 Duoneb - NEB 1 amp RQID IVANIA Administration Amlodipine Besylate 10 mg 12/04/17 22:00 12/05/17 22:11 Norvasc - PO 10 mg HS IVANIA Administration Aspirin 81 mg 12/05/17 10:00 12/06/17 11:21 Asa - PO 81 mg DAILY IVANIA Administration Budesonide/Formoterol Fumarate 2 puff 12/04/17 22:00 12/06/17 11:22 Symbicort 80/4.5mcg - IH 2 puff BID IVANIA Administration Furosemide 40 mg 12/05/17 06:00 12/06/17 13:27 Lasix Injection - IVPUSH 40 mg BID@0600,1400 IVANIA Administration Gabapentin 300 mg 12/04/17 22:00 12/05/17 21:11 Neurontin - PO 300 mg HS IVANIA Administration HCTZ/Losartan Potassium 1 tab 12/05/17 10:00 12/06/17 11:22 Hyzaar - PO 1 tab DAILY IVANIA Administration Haloperidol 5 mg 12/05/17 13:15 12/06/17 14:41 Haldol Injection (Fast Acting) - IM 5 mg Q8H PRN Administration AGITATION Heparin Sodium (Porcine) 5,000 unit 12/04/17 22:00 12/06/17 13:27 Heparin - SQ 5,000 unit TID IVANIA Administration Azithromycin 250 mg/ Dextrose 250 mls @ 250 mls/hr 12/05/17 10:00 12/06/17 09 :09 IVPB 12/08/17 10:59 250 mls/hr DAILY IVANIA Administration CEFTRIAXONE 1 G/50 ML PREMIX 50 mls @ 100 mls/hr 12/05/17 10:00 12/06/17 11: 21 Ceftriaxone 1 Gm-D5w Bag IVPB 100 mls/hr DAILY IVANIA Administration Insulin Aspart 1 vial 12/04/17 22:00 12/06/17 11:32 Novolog Vial Sliding Scale - SQ 4 units ACHS IVANIA Administration Protocol Methylprednisolone Sodium Succinate 40 mg 12/06/17 10:00 12/06/17 11:21 Solu-Medrol - IVPUSH 40 mg DAILY IVANIA Administration Metoprolol Succinate 100 mg 12/05/17 10:00 12/06/17 11:22 Toprol Xl - PO 100 mg DAILY IVANIA Administration Pantoprazole Sodium 40 mg 12/05/17 10:00 12/06/17 11:21 Protonix - PO 40 mg DAILY IVANIA Administration Polyethylene Glycol 17 gm 12/05/17 10:00 12/06/17 11:22 Miralax (For Daily Use) - PO Not Given DAILY IVANIA Ranolazine 500 mg 12/04/17 22:00 12/06/17 11:22 Ranexa - PO 500 mg BID IVANIA Administration Risperidone 1 mg 12/04/17 22:00 12/05/17 22:10 Risperdal - PO 1 mg HS IVANIA Administration Objective: Vital Signs Period Temp Pulse Resp BP Sys/Cox Pulse Ox Last 24 Hr 97.4 F-98.2 F 88-104 20-24 125-156/56-79 89-91 Physical Exam: General: NAD, A&Ox1 (person only) HEENT: moonshine face Lungs: End expiratory wheezing bilaterally Heart: RRR, S1S2 Abd: Soft, non-tender, non-distended. Ext: B/l lower extremity 2+ DP/PT. No edema CBCD WBC 7.9 K/mm3 (4.0-10.0) 12/06/17 07:45 RBC 4.26 M/mm3 (3.60-5.2) 12/06/17 07:45 Hgb 12.8 GM/dL (10.7-15.3) 12/06/17 07:45 Hct 40.7 % (32.4-45.2) 12/06/17 07:45 MCV 95.7 fl (80-96) 12/06/17 07:45 MCHC 31.5 g/dl (32.0-36.0) L 12/06/17 07:45 RDW 14.9 % (11.6-15.6) 12/06/17 07:45 Plt Count 249 K/MM3 (134-434) 12/06/17 07:45 MPV 8.6 fl (7.5-11.1) 12/06/17 07:45 CMP Sodium 140 mmol/L (136-145) 12/06/17 07:45 Potassium 3.3 mmol/L (3.5-5.1) L 12/06/17 07:45 Chloride 98 mmol/L (98-107) 12/06/17 07:45 Carbon Dioxide 37 mmol/L (21-32) H 12/06/17 07:45 Anion Gap 5 (8-16) L 12/06/17 07:45 BUN 28 mg/dL (7-18) H D 12/06/17 07:45 Creatinine 1.1 mg/dL (0.55-1.02) H 12/06/17 07:45 Creat Clearance w eGFR 48.55 (>60) 12/06/17 07:45 Random Glucose 134 mg/dL (74-106) H D 12/06/17 07:45 Calcium 10.7 mg/dL (8.5-10.1) H 12/06/17 07:45 Total Bilirubin 0.5 mg/dL (0.2-1.0) D 12/06/17 07:45 AST 12 U/L (15-37) L D 12/06/17 07:45 ALT 22 U/L (12-78) D 12/06/17 07:45 Alkaline Phosphatase 75 U/L (45-117) 12/06/17 07:45 Total Protein 6.9 g/dl (6.4-8.2) 12/06/17 07:45 Albumin 3.0 g/dl (3.4-5.0) L 12/06/17 07:45 CARDIAC ENZYMES Creatine Kinase 63 IU/L (26-192) 12/04/17 11:17 Troponin I < 0.02 ng/ml (0.00-0.05) 12/04/17 11:17 Microbiology 12/04/17 11:00 Blood - Peripheral Venous Blood Culture - Preliminary NO GROWTH OBTAINED AFTER 48 HOURS, INCUBATION TO CONTINUE FOR 3 DAYS. 12/04/17 11:00 Blood - Peripheral Venous Blood Culture - Preliminary NO GROWTH OBTAINED AFTER 48 HOURS, INCUBATION TO CONTINUE FOR 3 DAYS. 12/05/17 18:00 Nasopharyngeal Swab Influenza Types A,B Antigen (CLAY) - Final 12/05/17 18:00 Nasopharyngeal Swab - Final 12/04/17 12:30 Urine - Urine Clean Catch Urine Culture - Final Contaminated: Please Repeat Assessment: This is a 72 year old female with PMHx of HTN, diastolic heart failure, CAD s/p stents, COPD (on O2 at home), IDDM, dementia, who presented to the ED with confusion and weakness Plan: 1) Acute hypercapnic, hypoxic respiratory failure 2/2 COPD - O2 as needed, patient refusing bipap - Duonebs - Continue Symbicort - Solu-medrol 40mg daily - Appreciate pulmonary consult 2) Left base pneumonia - WBC WNL, afebrile - Continue Ceftriaxone - Continue Azithromycin - F/u urine legionella Ag 3) Altered mental status - Likely 2/2 worsening dementia vs. hypercapnia - Continue to monitor 4) Acute on chronic diastolic heart failure - ECHO 05/2017 with impaired LV relaxation, normal RV, trace to mild AI - Chest x-ray 12/04/17: progressive left pleural effusion - Strict I&O - Daily weight: down from previous admission - Continue Lasix 40mg bid, monitor Cr - Continue ASA - Appreciate cardiology consult 5) HTN - Continue Hyzaar - Continue Norvasc - Continue Toprol XL - Continue Ranexa 6) Dementia - Continue Risperdal - Ativan given for agitation 7) IDDM - BGM ACHS - ISS ACHS 8) F/E/N: - Diabetic, low sodium diet - Monitor electrolytes 9) Prophylaxis: - Heparin 5,000u sq tid - PT evaluation 10) Dispo: - Requires continued inpatient care - Daughter would like to discuss termite control technician care options, she states she is no longer able to take care of her mom at home CODE STATUS: DNR/DNI Visit type - Emergency Visit Emergency Visit: Yes ED Registration Date: 12/04/17 Care time: The patient presented to the Emergency Department on the above date and was hospitalized for further evaluation of their emergent condition. - New Patient This patient is new to me today: No - Critical Care Critical Care patient: No
--- NOTE | 2017-12-06 16:13 | PN ---
Progress Note (short form) - Note Progress Note: PULMONARY States breathing is improving. Some nonproductive cough and wheezing. Last Vital Signs Temp Pulse Resp BP Pulse Ox 98.2 F 88 20 127/69 90 L 12/06/17 09:00 12/06/17 09:00 12/06/17 09:00 12/06/17 09:00 12/06/17 09:00 Gen: NAD at rest Heart: RRR Lung: decreased breath sounds at the bases, rare wheeze Abd: soft, nontender Ext: distal edema CBC, BMP 12/06/17 07:45 12/06/17 07:45 Active Medications Albuterol/Ipratropium (Duoneb -) 1 amp NEB RQID [facility] Last Admin: 12/06/17 10:45 Dose: 1 amp Amlodipine Besylate (Norvasc -) 10 mg PO HS [facility] Last Admin: 12/05/17 22:11 Dose: 10 mg Aspirin (Asa -) 81 mg PO DAILY [facility] Last Admin: 12/06/17 11:21 Dose: 81 mg Budesonide/Formoterol Fumarate (Symbicort 80/4.5mcg -) 2 puff IH BID [facility] Last Admin: 12/06/17 11:22 Dose: 2 puff Furosemide (Lasix Injection -) 40 mg IVPUSH BID@0600,1400 [facility] Last Admin: 12/06/17 13:27 Dose: 40 mg Gabapentin (Neurontin -) 300 mg PO HS [facility] Last Admin: 12/05/17 21:11 Dose: 300 mg HCTZ/Losartan Potassium (Hyzaar -) 1 tab PO DAILY [facility] Last Admin: 12/06/17 11:22 Dose: 1 tab Haloperidol (Haldol Injection (Fast Acting) -) 5 mg IM Q8H PRN PRN Reason: AGITATION Last Admin: 12/06/17 14:41 Dose: 5 mg Heparin Sodium (Porcine) (Heparin -) 5,000 unit SQ TID [facility] Last Admin: 12/06/17 13:27 Dose: 5,000 unit Azithromycin 250 mg/ Dextrose 250 mls @ 250 mls/hr IVPB DAILY [facility] Stop: 12/08/17 10:59 Last Admin: 12/06/17 09:09 Dose: 250 mls/hr CEFTRIAXONE 1 G/50 ML PREMIX (Ceftriaxone 1 Gm-D5w Bag) 50 mls @ 100 mls/hr IVPB DAILY [facility] Last Admin: 12/06/17 11:21 Dose: 100 mls/hr Insulin Aspart (Novolog Vial Sliding Scale -) 1 vial SQ ACHS [facility] PRN Reason: Protocol Last Admin: 12/06/17 11:32 Dose: 4 units Lorazepam (Ativan Injection -) 0.5 mg IVPUSH Q8H PRN PRN Reason: ANXIETY Methylprednisolone Sodium Succinate (Solu-Medrol -) 40 mg IVPUSH DAILY [facility] Last Admin: 12/06/17 11:21 Dose: 40 mg Metoprolol Succinate (Toprol Xl -) 100 mg PO DAILY [facility] Last Admin: 12/06/17 11:22 Dose: 100 mg Pantoprazole Sodium (Protonix -) 40 mg PO DAILY [facility] Last Admin: 12/06/17 11:21 Dose: 40 mg Polyethylene Glycol (Miralax (For Daily Use) -) 17 gm PO DAILY [facility] Last Admin: 12/06/17 11:22 Dose: Not Given Ranolazine (Ranexa -) 500 mg PO BID [facility] Last Admin: 12/06/17 11:22 Dose: 500 mg Risperidone (Risperdal -) 1 mg PO HS [facility] Last Admin: 12/05/17 22:10 Dose: 1 mg A/P Acute on Chronic Hypoxic and Hypercapneic Respiratory Failure Acute on Chronic Diastolic Heart Failure Pleural Effusion COPD HTN DM Dementia - continue lasix - monitor urine output, creatinine - repeat CXR in AM - rapid taper off steroids, less likely COPD exacerbation - O2 to keep SpO2 >88% - BiPAP if pt allows - inhaled bronchodilators - DVT prophylaxis Problem List - Problems (1) Acute on chronic respiratory failure with hypoxia and hypercapnia Code(s): J96.21 - ACUTE AND CHRONIC RESPIRATORY FAILURE WITH HYPOXIA; J96.22 - ACUTE AND CHRONIC RESPIRATORY FAILURE WITH HYPERCAPNIA (2) Acute on chronic diastolic CHF (congestive heart failure) Code(s): I50.33 - ACUTE ON CHRONIC DIASTOLIC (CONGESTIVE) HEART FAILURE (3) Diabetes mellitus Code(s): E11.9 - TYPE 2 DIABETES MELLITUS WITHOUT COMPLICATIONS Qualifiers: Diabetes mellitus type: type 2 Diabetes mellitus complication status: without complication Diabetes mellitus director of database marketing insulin use: without director of database marketing use Qualified Code(s): E11.9 - Type 2 diabetes mellitus without complications (4) Hypertension Code(s): I10 - ESSENTIAL (PRIMARY) HYPERTENSION Qualifiers: Hypertension type: essential hypertension Qualified Code(s): I10 - Essential (primary) hypertension (5) Morbid obesity Code(s): E66.01 - MORBID (SEVERE) OBESITY DUE TO EXCESS CALORIES
[2017-12-06] MEDS ORDERED: INSULIN (NOVOLOG) ASPART 100 UNITS/ML 10ML VIAL SQ ONE (17:04)
[2017-12-06] MEDS: LORazepam 2 MG/ML SDV VIAL IVPUSH PRN (20:31)
[2017-12-06] MEDS ORDERED: PT OWN MED DRAWER 7, Y5N ONE (20:50)
[2017-12-06] MEDS: risperiDONE 1 MG TABLET (FP) PO SCH (21:00)
[2017-12-06] MEDS: amLODIPine BESYLATE 10 MG TABLET (FP) PO SCH (21:00)
[2017-12-06] MEDS: GABAPENTIN 300 MG CAPSULE (FP) PO SCH (21:00)
[2017-12-06] MEDS ORDERED: INSULIN (NOVOLOG) ASPART 100 UNITS/ML 10ML VIAL ONE (21:11)
[2017-12-07] MEDS: FUROSEMIDE 40 MG/4 ML INJECTABLE VIAL IVPUSH SCH ×2 (06:24→15:07)
[2017-12-07] MEDS: INSULIN SLIDING SCALE (NOVOLOG) 1 VIAL SQ SCH ×4 (06:24→21:03)
[2017-12-07] MEDS: HEPARIN NA (PORCINE) 5,000 UNITS/ML 1ML VIAL SQ SCH ×3 (06:24→21:00)
[2017-12-07] MEDS: ALBUTEROL SO4 2.5/IPRATROPIUM 0.5 INH SOL 3 ML VIAL.NEB. NEB SCH ×4 (08:10→22:10)
[2017-12-07 08:56] LABS: HEMATOCRIT 41.7 % (32.4-45.2); HEMOGLOBIN 13.1 GM/dL (10.7-15.3); MCH 30.2 pg (25.7-33.7); MCHC 31.4 g/dl (32.0-36.0); MEAN CELL VOLUME 96.2 fl (80-96); MEAN PLT VOLUME 9.5 fl (7.5-11.1); PLATELET COUNT 243 K/MM3 (134-434); RBC 4.33 M/mm3 (3.60-5.2); RDW 14.7 % (11.6-15.6); WHITE BLOOD COUNT 7.9 K/mm3 (4.0-10.0)
[2017-12-07] MEDS ORDERED: PT OWN MED DRAWER 7, Y5N ONE ×3 (09:11→20:58)
[2017-12-07] MEDS: methylPREDNISolone NA SUCC 40 MG/1 ML VIAL IVPUSH SCH (09:21)
[2017-12-07] MEDS: METOPROLOL SUCCINATE 100 MG TAB.SR.24H (FP) PO SCH (09:21)
[2017-12-07] MEDS: POLYETHYLENE GLYCOL 3350 119 GM BTL PO SCH (09:21)
[2017-12-07] MEDS: ASPIRIN 81 MG CHEWABLE TABLETS PO SCH (09:21)
[2017-12-07] MEDS: RANOLAZINE E.R. 500 MG TABLET (FP) PO SCH ×2 (09:21→21:00)
[2017-12-07] MEDS: CEFTRIAXONE 1 G/50 ML PREMIX 50 ML IVPB SCH (09:22)
[2017-12-07] MEDS: LOSARTAN 50MG/HCTZ 12.5MG 1 TAB (FP) PO SCH (09:22)
[2017-12-07] MEDS: PANTOPRAZOLE 40 MG TABLET (FP) PO SCH (09:22)
[2017-12-07] MEDS: BUDESONIDE/FORMETEROL FUMARATE 80/4.5 mcg INHALER IH SCH ×2 (09:23→21:01)
[2017-12-07 09:24] LABS: CHLORIDE 98 mmol/L (98-107); POTASSIUM 3.7 mmol/L (3.5-5.1); SODIUM 140 mmol/L (136-145)
[2017-12-07 09:42] LABS: ALBUMIN 3.1 g/dl (3.4-5.0); ALK PHOS 79 U/L (45-117); ANION GAP 7 (8-16); BILIRUBIN,TOTAL 0.5 mg/dL (0.2-1.0); BLOOD UREA NITROGEN 24 mg/dL (7-18); CALCIUM 10.8 mg/dL (8.5-10.1); CO2 35 mmol/L (21-32); CREATININE 0.9 mg/dL (0.55-1.02); GLUCOSE,RANDOM 178 mg/dL (74-106); SGOT/AST 12 U/L (15-37); SGPT/ALT 21 U/L (12-78); TOT PROT 6.9 g/dl (6.4-8.2)
[2017-12-07] MEDS: AZITHROMYCIN IVPB 250 MG in DEXTROSE 5%-WATER - 250 ML IVPB SCH (09:42)
[2017-12-07] MEDS ORDERED: INSULIN (NOVOLOG) ASPART 100 UNITS/ML 10ML VIAL ONE ×2 (11:02→20:58)
--- NOTE | 2017-12-07 11:46 | PN ---
Progress Note (short form) - Note Progress Note: Subjective: The patient was seen and examined at the bedside, she reports feeling much better today. Current Medications Generic Name Dose Route Start Last Admin Trade Name Dylan PRN Reason Stop Dose Admin Albuterol/Ipratropium 1 amp 12/04/17 20:00 12/07/17 08:10 Duoneb - NEB 1 amp RQID IVANIA Administration Amlodipine Besylate 10 mg 12/04/17 22:00 12/06/17 21:00 Norvasc - PO 10 mg HS IVANIA Administration Aspirin 81 mg 12/05/17 10:00 12/07/17 09:21 Asa - PO 81 mg DAILY IVANIA Administration Budesonide/Formoterol Fumarate 2 puff 12/04/17 22:00 12/07/17 09:23 Symbicort 80/4.5mcg - IH 2 puff BID IVANIA Administration Furosemide 40 mg 12/08/17 10:00 Lasix - PO DAILY IVANIA Gabapentin 300 mg 12/04/17 22:00 12/06/17 21:00 Neurontin - PO 300 mg HS IVANIA Administration HCTZ/Losartan Potassium 1 tab 12/05/17 10:00 12/07/17 09:22 Hyzaar - PO 1 tab DAILY IVANIA Administration Haloperidol 5 mg 12/05/17 13:15 12/06/17 14:41 Haldol Injection (Fast Acting) - IM 5 mg Q8H PRN Administration AGITATION Heparin Sodium (Porcine) 5,000 unit 12/04/17 22:00 12/07/17 06:24 Heparin - SQ 5,000 unit TID IVANIA Administration Azithromycin 250 mg/ Dextrose 250 mls @ 250 mls/hr 12/05/17 10:00 12/07/17 09 :42 IVPB 12/08/17 10:59 250 mls/hr DAILY IVANIA Administration CEFTRIAXONE 1 G/50 ML PREMIX 50 mls @ 100 mls/hr 12/05/17 10:00 12/07/17 09: 22 Ceftriaxone 1 Gm-D5w Bag IVPB 100 mls/hr DAILY IVANIA Administration Insulin Aspart 1 vial 12/04/17 22:00 12/07/17 06:24 Novolog Vial Sliding Scale - SQ 2 units ACHS IVANIA Administration Protocol Lorazepam 0.5 mg 12/06/17 20:14 12/06/17 20:31 Ativan Injection - IVPUSH 0.5 mg Q8H PRN Administration ANXIETY Methylprednisolone Sodium Succinate 40 mg 12/06/17 10:00 12/07/17 09:21 Solu-Medrol - IVPUSH 40 mg DAILY IVANIA Administration Metoprolol Succinate 100 mg 12/05/17 10:00 12/07/17 09:21 Toprol Xl - PO 100 mg DAILY IVANIA Administration Pantoprazole Sodium 40 mg 12/05/17 10:00 12/07/17 09:22 Protonix - PO 40 mg DAILY IVANIA Administration Polyethylene Glycol 17 gm 12/05/17 10:00 12/07/17 09:21 Miralax (For Daily Use) - PO 17 grams DAILY IVANIA Administration Ranolazine 500 mg 12/04/17 22:00 12/07/17 09:21 Ranexa - PO 500 mg BID IVANIA Administration Risperidone 1 mg 12/04/17 22:00 12/06/17 21:00 Risperdal - PO 1 mg HS IVANIA Administration Objective: Vital Signs Period Temp Pulse Resp BP Sys/Cox Pulse Ox Last 24 Hr 97.8 F-98.5 F 86-102 18-20 135-143/70-74 90-94 Physical Exam: General: NAD, A&Ox1 (person only) HEENT: moonshine face Lungs: End expiratory wheezing Heart: RRR, S1S2 Abd: Soft, non-tender, non-distended. Ext: B/l lower extremity 2+ DP/PT. No edema CBCD WBC 7.9 K/mm3 (4.0-10.0) 12/07/17 07:00 RBC 4.33 M/mm3 (3.60-5.2) 12/07/17 07:00 Hgb 13.1 GM/dL (10.7-15.3) 12/07/17 07:00 Hct 41.7 % (32.4-45.2) 12/07/17 07:00 MCV 96.2 fl (80-96) H 12/07/17 07:00 MCHC 31.4 g/dl (32.0-36.0) L 12/07/17 07:00 RDW 14.7 % (11.6-15.6) 12/07/17 07:00 Plt Count 243 K/MM3 (134-434) 12/07/17 07:00 MPV 9.5 fl (7.5-11.1) D 12/07/17 07:00 CMP Sodium 140 mmol/L (136-145) 12/07/17 06:00 Potassium 3.7 mmol/L (3.5-5.1) 12/07/17 06:00 Chloride 98 mmol/L (98-107) 12/07/17 06:00 Carbon Dioxide 35 mmol/L (21-32) H 12/07/17 06:00 Anion Gap 7 (8-16) L 12/07/17 06:00 BUN 24 mg/dL (7-18) H 12/07/17 06:00 Creatinine 0.9 mg/dL (0.55-1.02) 12/07/17 06:00 Creat Clearance w eGFR > 60 (>60) 12/07/17 06:00 Random Glucose 178 mg/dL (74-106) H D 12/07/17 06:00 Calcium 10.8 mg/dL (8.5-10.1) H 12/07/17 06:00 Total Bilirubin 0.5 mg/dL (0.2-1.0) 12/07/17 06:00 AST 12 U/L (15-37) L 12/07/17 06:00 ALT 21 U/L (12-78) 12/07/17 06:00 Alkaline Phosphatase 79 U/L (45-117) 12/07/17 06:00 Total Protein 6.9 g/dl (6.4-8.2) 12/07/17 06:00 Albumin 3.1 g/dl (3.4-5.0) L 12/07/17 06:00 CARDIAC ENZYMES Creatine Kinase 63 IU/L (26-192) 12/04/17 11:17 Troponin I < 0.02 ng/ml (0.00-0.05) 12/04/17 11:17 Microbiology 12/04/17 11:00 Blood - Peripheral Venous Blood Culture - Preliminary NO GROWTH OBTAINED AFTER 48 HOURS, INCUBATION TO CONTINUE FOR 3 DAYS. 12/04/17 11:00 Blood - Peripheral Venous Blood Culture - Preliminary NO GROWTH OBTAINED AFTER 48 HOURS, INCUBATION TO CONTINUE FOR 3 DAYS. 12/05/17 18:00 Nasopharyngeal Swab Influenza Types A,B Antigen (CLAY) - Final 12/05/17 18:00 Nasopharyngeal Swab - Final 12/04/17 12:30 Urine - Urine Clean Catch Urine Culture - Final Contaminated: Please Repeat Assessment: This is a 72 year old female with PMHx of HTN, diastolic heart failure, CAD s/p stents, COPD (on O2 at home), IDDM, dementia, stomach cancer, who presented to the ED with confusion and weakness Plan: 1) Acute hypercapnic, hypoxic respiratory failure 2/2 COPD - O2 as needed, patient refusing bipap - Duonebs - Continue Symbicort - Solu-medrol 40mg daily - ABG today with low O2 on NC. Placed patient on ventimask and ordered repeat ABG (daughter refused) - Appreciate pulmonary consult 2) Left base pneumonia - WBC WNL, afebrile - Continue Ceftriaxone - Continue Azithromycin - F/u urine legionella Ag 3) Altered mental status - Likely 2/2 worsening dementia vs. hypercapnia - Continue to monitor 4) Acute on chronic diastolic heart failure - ECHO 05/2017 with impaired LV relaxation, normal RV, trace to mild AI - Chest x-ray 12/04/17, 12/07/17: progressive left pleural effusion - Continue Lasix 40mg po daily - Strict I&O - Daily weight - Continue ASA - Appreciate cardiology consult 5) HTN - Continue Hyzaar - Continue Norvasc - Continue Toprol XL - Continue Ranexa 6) Dementia - Continue Risperdal - Ativan given for agitation 7) Stomach mass, elevated CEA - Family has opted for conservative management - Chronic hypercalcemia likely 2/2 malignancy - Continue to monitor Ca level closely 8) IDDM - BGM ACHS - ISS ACHS 9) F/E/N: - Diabetic, low sodium diet - Monitor electrolytes 10) Prophylaxis: - Heparin 5,000u sq tid - PT evaluation 11) Dispo: - Awaiting SNF placement CODE STATUS: DNR/DNI Visit type - Emergency Visit Emergency Visit: Yes ED Registration Date: 12/04/17 Care time: The patient presented to the Emergency Department on the above date and was hospitalized for further evaluation of their emergent condition. - New Patient This patient is new to me today: No - Critical Care Critical Care patient: No
--- NOTE | 2017-12-07 14:33 | PN ---
Progress Note, Physician History of Present Illness: PULMONARY MORE LETHARGIC,-TACHYPNEA - Current Medication List Current Medications: Active Medications Albuterol/Ipratropium (Duoneb -) 1 amp NEB RQID [facility] Last Admin: 12/07/17 12:14 Dose: 1 amp Amlodipine Besylate (Norvasc -) 10 mg PO HS [facility] Last Admin: 12/06/17 21:00 Dose: 10 mg Aspirin (Asa -) 81 mg PO DAILY [facility] Last Admin: 12/07/17 09:21 Dose: 81 mg Budesonide/Formoterol Fumarate (Symbicort 80/4.5mcg -) 2 puff IH BID [facility] Last Admin: 12/07/17 09:23 Dose: 2 puff Furosemide (Lasix -) 40 mg PO DAILY [facility] Gabapentin (Neurontin -) 300 mg PO HS [facility] Last Admin: 12/06/17 21:00 Dose: 300 mg HCTZ/Losartan Potassium (Hyzaar -) 1 tab PO DAILY [facility] Last Admin: 12/07/17 09:22 Dose: 1 tab Haloperidol (Haldol Injection (Fast Acting) -) 5 mg IM Q8H PRN PRN Reason: AGITATION Last Admin: 12/06/17 14:41 Dose: 5 mg Heparin Sodium (Porcine) (Heparin -) 5,000 unit SQ TID [facility] Last Admin: 12/07/17 06:24 Dose: 5,000 unit Azithromycin 250 mg/ Dextrose 250 mls @ 250 mls/hr IVPB DAILY [facility] Stop: 12/08/17 10:59 Last Admin: 12/07/17 09:42 Dose: 250 mls/hr CEFTRIAXONE 1 G/50 ML PREMIX (Ceftriaxone 1 Gm-D5w Bag) 50 mls @ 100 mls/hr IVPB DAILY [facility] Last Admin: 12/07/17 09:22 Dose: 100 mls/hr Insulin Aspart (Novolog Vial Sliding Scale -) 1 vial SQ ACHS [facility] PRN Reason: Protocol Last Admin: 12/07/17 11:44 Dose: 6 units Lorazepam (Ativan Injection -) 0.5 mg IVPUSH Q8H PRN PRN Reason: ANXIETY Last Admin: 12/06/17 20:31 Dose: 0.5 mg Methylprednisolone Sodium Succinate (Solu-Medrol -) 40 mg IVPUSH DAILY [facility] Last Admin: 01/10/18 09:21 Dose: 40 mg Metoprolol Succinate (Toprol Xl -) 100 mg PO DAILY [facility] Last Admin: 12/07/17 09:21 Dose: 100 mg Pantoprazole Sodium (Protonix -) 40 mg PO DAILY [facility] Last Admin: 12/07/17 09:22 Dose: 40 mg Polyethylene Glycol (Miralax (For Daily Use) -) 17 gm PO DAILY [facility] Last Admin: 12/07/17 09:21 Dose: 17 grams Ranolazine (Ranexa -) 500 mg PO BID [facility] Last Admin: 12/07/17 09:21 Dose: 500 mg Risperidone (Risperdal -) 1 mg PO HS [facility] Last Admin: 12/06/17 21:00 Dose: 1 mg - Objective Vital Signs: Vital Signs Temperature 97.8 F 12/07/17 06:00 Pulse Rate 86 12/07/17 08:09 Respiratory Rate 20 12/07/17 06:00 Blood Pressure 135/74 12/07/17 06:00 O2 Sat by Pulse Oximetry (%) 90 L 12/07/17 08:09 Constitutional: Yes: Well Nourished, Other (LETHARGIC) Eyes: Yes: WNL HENT: Yes: WNL Neck: Yes: WNL Cardiovascular: Yes: Regular Rate and Rhythm, S1, S2 Respiratory: Yes: Wheezes (SCATTERED BRISEYDA WHEEZES) Gastrointestinal: Yes: Normal Bowel Sounds, Soft Extremities: Yes: WNL Edema: No Labs: CBC, BMP 12/07/17 07:00 12/07/17 06:00 INR, PTT INR 1.01 (0.82-1.09) 12/04/17 11:17 - ....Imaging Chest X-ray: Report Reviewed, Image Reviewed (INCREASING LEFT PLEURAL EFFUSION, CONSOLIDATION) Assessment/Plan A/P Acute on Chronic Hypoxic and Hypercapneic Respiratory Failure Acute on Chronic Diastolic Heart Failure Pleural Effusion COPD HTN DM Dementia - lasix iv - monitor urine output, creatinine - repeat CXR in AM - rapid taper off steroids, less likely COPD exacerbation - O2 to keep SpO2 >88% - BiPAP if pt allows - inhaled bronchodilators - DVT prophylaxis - abg - consider thoracentesis Problem List - Problems (1) Acute on chronic respiratory failure with hypoxia and hypercapnia Code(s): J96.21 - ACUTE AND CHRONIC RESPIRATORY FAILURE WITH HYPOXIA; J96.22 - ACUTE AND CHRONIC RESPIRATORY FAILURE WITH HYPERCAPNIA (2) Acute on chronic diastolic CHF (congestive heart failure) Code(s): I50.33 - ACUTE ON CHRONIC DIASTOLIC (CONGESTIVE) HEART FAILURE (3) Diabetes mellitus Code(s): E11.9 - TYPE 2 DIABETES MELLITUS WITHOUT COMPLICATIONS Qualifiers: Diabetes mellitus type: type 2 Diabetes mellitus complication status: without complication Diabetes mellitus skilled nursing insulin use: without skilled nursing use Qualified Code(s): E11.9 - Type 2 diabetes mellitus without complications (4) Hypertension Code(s): I10 - ESSENTIAL (PRIMARY) HYPERTENSION Qualifiers: Hypertension type: essential hypertension Qualified Code(s): I10 - Essential (primary) hypertension (5) Morbid obesity Code(s): E66.01 - MORBID (SEVERE) OBESITY DUE TO EXCESS CALORIES
[2017-12-07 15:13] LABS: ARTERIAL BLD GAS O2 SATURATION 76.7 % (90-98.9); ARTERIAL BLOOD GAS BASE EXCESS 10.3 meq/l (-2-2); ARTERIAL BLOOD GAS PCO2 54.6 mmHg (35-45); ARTERIAL BLOOD GAS pH 7.44 (7.35-7.45)
[2017-12-07 15:18] LABS: ALLENS TEST POSITIVE; ARTERIAL BLOOD GAS PO2 42.1 mmHg (70-100)
[2017-12-07] MEDS: LORazepam 2 MG/ML SDV VIAL IVPUSH PRN (15:47)
--- NOTE | 2017-12-07 16:10 | PN ---
Progress Note, Physician History of Present Illness: Dyspnea and O2 requirement increased, IV diuresis resumed, now on bipap. - Current Medication List Current Medications: Active Medications Albuterol/Ipratropium (Duoneb -) 1 amp NEB RQID [facility] Last Admin: 12/07/17 12:14 Dose: 1 amp Amlodipine Besylate (Norvasc -) 10 mg PO HS [facility] Last Admin: 12/06/17 21:00 Dose: 10 mg Aspirin (Asa -) 81 mg PO DAILY [facility] Last Admin: 12/07/17 09:21 Dose: 81 mg Budesonide/Formoterol Fumarate (Symbicort 80/4.5mcg -) 2 puff IH BID [facility] Last Admin: 12/07/17 09:23 Dose: 2 puff Furosemide (Lasix Injection -) 40 mg IVPUSH DAILY [facility] Last Admin: 12/07/17 15:07 Dose: 40 mg Gabapentin (Neurontin -) 300 mg PO HS [facility] Last Admin: 12/06/17 21:00 Dose: 300 mg HCTZ/Losartan Potassium (Hyzaar -) 1 tab PO DAILY [facility] Last Admin: 12/07/17 09:22 Dose: 1 tab Haloperidol (Haldol Injection (Fast Acting) -) 5 mg IM Q8H PRN PRN Reason: AGITATION Last Admin: 12/06/17 14:41 Dose: 5 mg Heparin Sodium (Porcine) (Heparin -) 5,000 unit SQ TID [facility] Last Admin: 12/07/17 15:07 Dose: 5,000 unit Azithromycin 250 mg/ Dextrose 250 mls @ 250 mls/hr IVPB DAILY [facility] Stop: 12/08/17 10:59 Last Admin: 12/07/17 09:42 Dose: 250 mls/hr CEFTRIAXONE 1 G/50 ML PREMIX (Ceftriaxone 1 Gm-D5w Bag) 50 mls @ 100 mls/hr IVPB DAILY [facility] Last Admin: 12/07/17 09:22 Dose: 100 mls/hr Insulin Aspart (Novolog Vial Sliding Scale -) 1 vial SQ ACHS [facility] PRN Reason: Protocol Last Admin: 12/07/17 11:44 Dose: 6 units Lorazepam (Ativan Injection -) 0.5 mg IVPUSH Q8H PRN PRN Reason: ANXIETY Last Admin: 12/07/17 15:47 Dose: 0.5 mg Methylprednisolone Sodium Succinate (Solu-Medrol -) 40 mg IVPUSH DAILY [facility] Last Admin: 12/07/17 09:21 Dose: 40 mg Metoprolol Succinate (Toprol Xl -) 100 mg PO DAILY [facility] Last Admin: 12/07/17 09:21 Dose: 100 mg Pantoprazole Sodium (Protonix -) 40 mg PO DAILY [facility] Last Admin: 12/07/17 09:22 Dose: 40 mg Polyethylene Glycol (Miralax (For Daily Use) -) 17 gm PO DAILY [facility] Last Admin: 12/07/17 09:21 Dose: 17 grams Ranolazine (Ranexa -) 500 mg PO BID [facility] Last Admin: 12/07/17 09:21 Dose: 500 mg Risperidone (Risperdal -) 1 mg PO HS [facility] Last Admin: 12/06/17 21:00 Dose: 1 mg - Objective Vital Signs: Vital Signs Temperature 97.9 F 12/07/17 14:49 Pulse Rate 94 H 12/07/17 14:49 Respiratory Rate 22 12/07/17 09:00 Blood Pressure 133/84 12/07/17 14:49 O2 Sat by Pulse Oximetry (%) 90 L 12/07/17 09:00 Constitutional: Yes: No Distress, Calm Neck: Yes: Supple Cardiovascular: Yes: Regular Rate and Rhythm Respiratory: Yes: Regular, Diminished, On BiPap Gastrointestinal: Yes: Normal Bowel Sounds, Soft Edema: No Labs: CBC, BMP 12/07/17 07:00 12/07/17 06:00 INR, PTT INR 1.01 (0.82-1.09) 12/04/17 11:17 - ....Imaging Chest X-ray: Report Reviewed (Increased left effusion) Problem List - Problems (1) COPD (chronic obstructive pulmonary disease) Code(s): J44.9 - CHRONIC OBSTRUCTIVE PULMONARY DISEASE, UNSPECIFIED Qualifiers: COPD type: unspecified COPD Qualified Code(s): J44.9 - Chronic obstructive pulmonary disease, unspecified (2) Acute on chronic diastolic CHF (congestive heart failure) Code(s): I50.33 - ACUTE ON CHRONIC DIASTOLIC (CONGESTIVE) HEART FAILURE (3) Acute on chronic respiratory failure with hypoxia and hypercapnia Code(s): J96.21 - ACUTE AND CHRONIC RESPIRATORY FAILURE WITH HYPOXIA; J96.22 - ACUTE AND CHRONIC RESPIRATORY FAILURE WITH HYPERCAPNIA (4) Diabetes mellitus Code(s): E11.9 - TYPE 2 DIABETES MELLITUS WITHOUT COMPLICATIONS Qualifiers: Diabetes mellitus type: type 2 Diabetes mellitus complication status: without complication Diabetes mellitus terminal computer operator insulin use: without terminal computer operator use Qualified Code(s): E11.9 - Type 2 diabetes mellitus without complications (5) Hypertension Code(s): I10 - ESSENTIAL (PRIMARY) HYPERTENSION Qualifiers: Hypertension type: essential hypertension Qualified Code(s): I10 - Essential (primary) hypertension (6) Morbid obesity Code(s): E66.01 - MORBID (SEVERE) OBESITY DUE TO EXCESS CALORIES (7) Right bundle branch block (RBBB) Code(s): I45.10 - UNSPECIFIED RIGHT BUNDLE-BRANCH BLOCK (8) Pleural effusion due to CHF (congestive heart failure) Code(s): I50.9 - HEART FAILURE, UNSPECIFIED Assessment/Plan Echocardiography performed 06/14/2017 revealed Normal LV size and function, abnormal left ventricular compliance, mild aortic dilatation And no significant valve abnormality 1. Acute on chronic hypercapenic, hypoxemic respiratory failure 2. Acute on Chronic left ventricular diastolic failure with pleural effusion 3. Coronary artery disease angina pectoris 4. COPD 5. Hypertension/hypertensive cardiovascular disease 6. Diabetes mellitus 7. Hypercholesterolemia 8. Ascending thoracic aortic aneurysm 9. Complete right bundle branch block 10. History of obstructive sleep apnea 11. History of rheumatoid arthritis 12. Prior history of GI bleed PLAN: 1. Resumed IV Lasix therapy with close monitoring of diuretic rsponse, renal function and electrolytes, consider thoracentesis 2. Continue Hyzaar 50/12.5 qd, Norvasc 10 qd and Toprol-XL 100 qd 3. Continue Ranexa 500 bid 4. Continue Aspirin 81 qd 5. Continue bronchodilator, O2, Bipap as tolerated, empiric abx course and steroid taper as per pulmonary service 6. DVT prophylaxis
[2017-12-07] MEDS: GABAPENTIN 300 MG CAPSULE (FP) PO SCH (21:00)
[2017-12-07] MEDS: amLODIPine BESYLATE 10 MG TABLET (FP) PO SCH (21:00)
[2017-12-07] MEDS: risperiDONE 1 MG TABLET (FP) PO SCH (21:00)
[2017-12-07] MEDS: HALOPERIDOL LACTATE 5 MG/ML IM PRN (21:01)
[2017-12-08] MEDS: INSULIN SLIDING SCALE (NOVOLOG) 1 VIAL SQ SCH ×4 (06:30→21:09)
[2017-12-08] MEDS: HEPARIN NA (PORCINE) 5,000 UNITS/ML 1ML VIAL SQ SCH ×3 (06:31→21:09)
[2017-12-08] MEDS: ALBUTEROL SO4 2.5/IPRATROPIUM 0.5 INH SOL 3 ML VIAL.NEB. NEB SCH ×4 (07:11→20:00)
[2017-12-08] MEDS: METOPROLOL SUCCINATE 100 MG TAB.SR.24H (FP) PO SCH (09:40)
[2017-12-08] MEDS: RANOLAZINE E.R. 500 MG TABLET (FP) PO SCH ×2 (09:40→21:08)
[2017-12-08] MEDS: ASPIRIN 81 MG CHEWABLE TABLETS PO SCH (09:40)
[2017-12-08] MEDS: LOSARTAN 50MG/HCTZ 12.5MG 1 TAB (FP) PO SCH (09:40)
[2017-12-08] MEDS: PANTOPRAZOLE 40 MG TABLET (FP) PO SCH (09:40)
[2017-12-08] MEDS: FUROSEMIDE 40 MG/4 ML INJECTABLE VIAL IVPUSH SCH (09:41)
[2017-12-08] MEDS: methylPREDNISolone NA SUCC 40 MG/1 ML VIAL IVPUSH SCH (09:41)
[2017-12-08] MEDS: CEFTRIAXONE 1 G/50 ML PREMIX 50 ML IVPB SCH (09:42)
[2017-12-08] MEDS: POLYETHYLENE GLYCOL 3350 119 GM BTL PO SCH (09:42)
[2017-12-08] MEDS: AZITHROMYCIN IVPB 250 MG in DEXTROSE 5%-WATER - 250 ML IVPB SCH (09:43)
[2017-12-08] MEDS ORDERED: FUROSEMIDE 40 MG TABLET (FP) PO SCH (10:00)
[2017-12-08] MEDS: BUDESONIDE/FORMETEROL FUMARATE 80/4.5 mcg INHALER IH SCH ×2 (10:57→21:08)
--- NOTE | 2017-12-08 11:10 | PN ---
Progress Note (short form) - Note Progress Note: PULMONARY States breathing is improving. Still with some nonproductive cough and wheezing. Last Vital Signs Temp Pulse Resp BP Pulse Ox 98.6 F 105 H 18 140/73 94 L 12/08/17 05:50 12/08/17 05:50 12/08/17 05:50 12/08/17 05:50 12/07/17 21:12 Gen: NAD at rest Heart: RRR Lung: decreased breath sounds at the bases, rare wheeze Abd: soft, nontender Ext: distal edema CBC, BMP 12/07/17 07:00 12/07/17 06:00 Active Medications Acetaminophen (Tylenol -) 650 mg PO Q6H PRN PRN Reason: MILD PAIN Albuterol/Ipratropium (Duoneb -) 1 amp NEB RQID [facility] Last Admin: 12/08/17 07:11 Dose: 1 amp Amlodipine Besylate (Norvasc -) 10 mg PO HS [facility] Last Admin: 12/07/17 21:00 Dose: 10 mg Aspirin (Asa -) 81 mg PO DAILY [facility] Last Admin: 12/08/17 09:40 Dose: 81 mg Budesonide/Formoterol Fumarate (Symbicort 80/4.5mcg -) 2 puff IH BID [facility] Last Admin: 12/08/17 10:57 Dose: 2 puff Furosemide (Lasix Injection -) 40 mg IVPUSH DAILY [facility] Last Admin: 12/08/17 09:41 Dose: 40 mg Gabapentin (Neurontin -) 300 mg PO HS [facility] Last Admin: 12/07/17 21:00 Dose: 300 mg HCTZ/Losartan Potassium (Hyzaar -) 1 tab PO DAILY [facility] Last Admin: 12/08/17 09:40 Dose: 1 tab Haloperidol (Haldol Injection (Fast Acting) -) 5 mg IM Q8H PRN PRN Reason: AGITATION Last Admin: 12/07/17 21:01 Dose: 5 mg Heparin Sodium (Porcine) (Heparin -) 5,000 unit SQ TID [facility] Last Admin: 12/08/17 06:31 Dose: 5,000 unit CEFTRIAXONE 1 G/50 ML PREMIX (Ceftriaxone 1 Gm-D5w Bag) 50 mls @ 100 mls/hr IVPB DAILY [facility] Last Admin: 12/08/17 09:42 Dose: 100 mls/hr Insulin Aspart (Novolog Vial Sliding Scale -) 1 vial SQ ACHS [facility] PRN Reason: Protocol Last Admin: 12/08/17 06:30 Dose: 4 units Lorazepam (Ativan Injection -) 0.5 mg IVPUSH Q8H PRN PRN Reason: ANXIETY Last Admin: 12/07/17 15:47 Dose: 0.5 mg Methylprednisolone Sodium Succinate (Solu-Medrol -) 40 mg IVPUSH DAILY [facility] Last Admin: 12/08/17 09:41 Dose: 40 mg Metoprolol Succinate (Toprol Xl -) 100 mg PO DAILY [facility] Last Admin: 12/08/17 09:40 Dose: 100 mg Pantoprazole Sodium (Protonix -) 40 mg PO DAILY [facility] Last Admin: 12/08/17 09:40 Dose: 40 mg Polyethylene Glycol (Miralax (For Daily Use) -) 17 gm PO DAILY [facility] Last Admin: 12/08/17 09:42 Dose: 17 grams Ranolazine (Ranexa -) 500 mg PO BID [facility] Last Admin: 12/08/17 09:40 Dose: 500 mg Risperidone (Risperdal -) 1 mg PO HS [facility] Last Admin: 12/07/17 21:00 Dose: 1 mg A/P Acute on Chronic Hypoxic and Hypercapneic Respiratory Failure Acute on Chronic Diastolic Heart Failure Pleural Effusion COPD HTN DM Dementia - continue lasix - monitor urine output, creatinine - taper off steroids - can consider left thoracentesis if not responding to diuresis - O2 to keep SpO2 >88% - BiPAP if pt allows - inhaled bronchodilators - DVT prophylaxis Problem List - Problems (1) Acute on chronic respiratory failure with hypoxia and hypercapnia Code(s): J96.21 - ACUTE AND CHRONIC RESPIRATORY FAILURE WITH HYPOXIA; J96.22 - ACUTE AND CHRONIC RESPIRATORY FAILURE WITH HYPERCAPNIA (2) Acute on chronic diastolic CHF (congestive heart failure) Code(s): I50.33 - ACUTE ON CHRONIC DIASTOLIC (CONGESTIVE) HEART FAILURE (3) Diabetes mellitus Code(s): E11.9 - TYPE 2 DIABETES MELLITUS WITHOUT COMPLICATIONS Qualifiers: Diabetes mellitus type: type 2 Diabetes mellitus complication status: without complication Diabetes mellitus long-term insulin use: without long-term use Qualified Code(s): E11.9 - Type 2 diabetes mellitus without complications (4) Hypertension Code(s): I10 - ESSENTIAL (PRIMARY) HYPERTENSION Qualifiers: Hypertension type: essential hypertension Qualified Code(s): I10 - Essential (primary) hypertension (5) Morbid obesity Code(s): E66.01 - MORBID (SEVERE) OBESITY DUE TO EXCESS CALORIES
--- NOTE | 2017-12-08 11:51 | PN ---
Progress Note, Physician History of Present Illness: Dyspnea and O2 requirement improved with resumption of IV diuresis, now on NC. - Current Medication List Current Medications: Active Medications Acetaminophen (Tylenol -) 650 mg PO Q6H PRN PRN Reason: MILD PAIN Albuterol/Ipratropium (Duoneb -) 1 amp NEB RQID [facility] Last Admin: 12/08/17 07:11 Dose: 1 amp Amlodipine Besylate (Norvasc -) 10 mg PO HS [facility] Last Admin: 12/07/17 21:00 Dose: 10 mg Aspirin (Asa -) 81 mg PO DAILY [facility] Last Admin: 12/08/17 09:40 Dose: 81 mg Budesonide/Formoterol Fumarate (Symbicort 80/4.5mcg -) 2 puff IH BID [facility] Last Admin: 12/08/17 10:57 Dose: 2 puff Furosemide (Lasix Injection -) 40 mg IVPUSH DAILY [facility] Last Admin: 12/08/17 09:41 Dose: 40 mg Gabapentin (Neurontin -) 300 mg PO HS [facility] Last Admin: 12/07/17 21:00 Dose: 300 mg HCTZ/Losartan Potassium (Hyzaar -) 1 tab PO DAILY [facility] Last Admin: 12/08/17 09:40 Dose: 1 tab Haloperidol (Haldol Injection (Fast Acting) -) 5 mg IM Q8H PRN PRN Reason: AGITATION Last Admin: 12/07/17 21:01 Dose: 5 mg Heparin Sodium (Porcine) (Heparin -) 5,000 unit SQ TID [facility] Last Admin: 12/08/17 06:31 Dose: 5,000 unit CEFTRIAXONE 1 G/50 ML PREMIX (Ceftriaxone 1 Gm-D5w Bag) 50 mls @ 100 mls/hr IVPB DAILY [facility] Last Admin: 12/08/17 09:42 Dose: 100 mls/hr Insulin Aspart (Novolog Vial Sliding Scale -) 1 vial SQ ACHS [facility] PRN Reason: Protocol Last Admin: 12/08/17 06:30 Dose: 4 units Lorazepam (Ativan Injection -) 0.5 mg IVPUSH Q8H PRN PRN Reason: ANXIETY Last Admin: 12/07/17 15:47 Dose: 0.5 mg Metoprolol Succinate (Toprol Xl -) 100 mg PO DAILY [facility] Last Admin: 12/08/17 09:40 Dose: 100 mg Pantoprazole Sodium (Protonix -) 40 mg PO DAILY [facility] Last Admin: 12/08/17 09:40 Dose: 40 mg Polyethylene Glycol (Miralax (For Daily Use) -) 17 gm PO DAILY [facility] Last Admin: 12/08/17 09:42 Dose: 17 grams Prednisone (Deltasone -) 30 mg PO DAILY [facility] Ranolazine (Ranexa -) 500 mg PO BID [facility] Last Admin: 12/08/17 09:40 Dose: 500 mg Risperidone (Risperdal -) 1 mg PO HS [facility] Last Admin: 12/07/17 21:00 Dose: 1 mg - Objective Vital Signs: Vital Signs Temperature 98.6 F 12/08/17 05:50 Pulse Rate 105 H 12/08/17 05:50 Respiratory Rate 18 12/08/17 05:50 Blood Pressure 140/73 12/08/17 05:50 O2 Sat by Pulse Oximetry (%) 94 L 12/07/17 21:12 Constitutional: Yes: No Distress, Calm Neck: Yes: Supple Cardiovascular: Yes: Regular Rate and Rhythm Respiratory: Yes: Regular, Diminished, On Nasal O2 Gastrointestinal: Yes: Normal Bowel Sounds, Soft, Abdomen, Obese Edema: No Labs: CBC, BMP 12/07/17 07:00 12/07/17 06:00 INR, PTT INR 1.01 (0.82-1.09) 12/04/17 11:17 Problem List - Problems (1) COPD (chronic obstructive pulmonary disease) Code(s): J44.9 - CHRONIC OBSTRUCTIVE PULMONARY DISEASE, UNSPECIFIED Qualifiers: COPD type: unspecified COPD Qualified Code(s): J44.9 - Chronic obstructive pulmonary disease, unspecified (2) Acute on chronic diastolic CHF (congestive heart failure) Code(s): I50.33 - ACUTE ON CHRONIC DIASTOLIC (CONGESTIVE) HEART FAILURE (3) Acute on chronic respiratory failure with hypoxia and hypercapnia Code(s): J96.21 - ACUTE AND CHRONIC RESPIRATORY FAILURE WITH HYPOXIA; J96.22 - ACUTE AND CHRONIC RESPIRATORY FAILURE WITH HYPERCAPNIA (4) Diabetes mellitus Code(s): E11.9 - TYPE 2 DIABETES MELLITUS WITHOUT COMPLICATIONS Qualifiers: Diabetes mellitus type: type 2 Diabetes mellitus complication status: without complication Diabetes mellitus intermediate insulin use: without intermediate use Qualified Code(s): E11.9 - Type 2 diabetes mellitus without complications (5) Hypertension Code(s): I10 - ESSENTIAL (PRIMARY) HYPERTENSION Qualifiers: Hypertension type: essential hypertension Qualified Code(s): I10 - Essential (primary) hypertension (6) Morbid obesity Code(s): E66.01 - MORBID (SEVERE) OBESITY DUE TO EXCESS CALORIES (7) Right bundle branch block (RBBB) Code(s): I45.10 - UNSPECIFIED RIGHT BUNDLE-BRANCH BLOCK (8) Pleural effusion due to CHF (congestive heart failure) Code(s): I50.9 - HEART FAILURE, UNSPECIFIED Assessment/Plan Echocardiography performed 06/14/2017 revealed Normal LV size and function, abnormal left ventricular compliance, mild aortic dilatation And no significant valve abnormality 1. Acute on chronic hypercapenic, hypoxemic respiratory failure 2. Acute on Chronic left ventricular diastolic failure with pleural effusion improving 3. Coronary artery disease angina pectoris 4. COPD 5. Hypertension/hypertensive cardiovascular disease 6. Diabetes mellitus 7. Hypercholesterolemia 8. Ascending thoracic aortic aneurysm 9. Complete right bundle branch block 10. History of obstructive sleep apnea 11. History of rheumatoid arthritis 12. Prior history of GI bleed PLAN: 1. Continue IV Lasix therapy with close monitoring of diuretic response, renal function and electrolytes, consider thoracentesis if not responding adequately to diuresis 2. Continue Hyzaar 50/12.5 qd, Norvasc 10 qd and Toprol-XL 100 qd 3. Continue Ranexa 500 bid 4. Continue Aspirin 81 qd 5. Continue bronchodilator, O2 to keep SpO2 >88%, Bipap as tolerated, empiric abx course and steroid taper as per pulmonary service 6. DVT prophylaxis, check CXR in AM
[2017-12-08] MEDS: LORazepam 2 MG/ML SDV VIAL IVPUSH PRN (13:59)
--- NOTE | 2017-12-08 14:50 | PN ---
Physical Exam: SUBJECTIVE: Patient seen and examined oob to chair. Daughter present. Patient states "it's hard to breathe." On 5L NC. OBJECTIVE: Vital Signs Period Temp Pulse Resp BP Sys/Cox Pulse Ox Last 24 Hr 98.1 F-98.6 F 92-105 18-18 132-145/68-73 94-94 GENERAL: The patient is awake, alert. LUNGS: No appreciable air movement on left; coarse rhonchi on right HEART: Regular rate and rhythm, +murmur ABDOMEN: Soft, nontender, nondistended, normoactive bowel sounds, no guarding, no rebound, no hepatosplenomegaly, no masses. EXTREMITIES: 2+ pulses, warm, well-perfused, trace bilateral edema NEUROLOGICAL: Cranial nerves II through XII grossly intact. Laboratory Results - last 24 hr 12/07/17 12/07/17 12/07/17 15:05 16:45 21:02 Puncture Site Left radial ABG pH 7.44 ABG pCO2 at Pt Temp 54.6 H ABG pO2 at Pt Temp 42.1 L* D ABG HCO3 36.1 H ABG O2 Sat (Measured) 76.7 L ABG O2 Content 13.0 L ABG Base Excess 10.3 H Reji Test Positive O2 Delivery Device Nasal cannula Oxygen Flow Rate 5 Mechanical Rate No PEEP 0.0 POC Glucometer 386 364 12/08/17 12/08/17 06:29 12:05 Puncture Site ABG pH ABG pCO2 at Pt Temp ABG pO2 at Pt Temp ABG HCO3 ABG O2 Sat (Measured) ABG O2 Content ABG Base Excess Reji Test O2 Delivery Device Oxygen Flow Rate Mechanical Rate PEEP POC Glucometer 227 377 Active Medications Generic Name Dose Route Start Last Admin Trade Name Freq PRN Reason Stop Dose Admin Acetaminophen 650 mg 12/08/17 10:30 Tylenol - PO Q6H PRN MILD PAIN Albuterol/Ipratropium 1 amp 12/04/17 20:00 12/08/17 12:38 Duoneb - NEB 1 amp RQID IVANIA Administration Amlodipine Besylate 10 mg 12/04/17 22:00 12/07/17 21:00 Norvasc - PO 10 mg HS IVANIA Administration Aspirin 81 mg 12/05/17 10:00 12/08/17 09:40 Asa - PO 81 mg DAILY IVANIA Administration Budesonide/Formoterol Fumarate 2 puff 12/04/17 22:00 12/08/17 10:57 Symbicort 80/4.5mcg - IH 2 puff BID IVANIA Administration Furosemide 40 mg 12/07/17 14:45 12/08/17 09:41 Lasix Injection - IVPUSH 40 mg DAILY IVANIA Administration Gabapentin 300 mg 12/04/17 22:00 12/07/17 21:00 Neurontin - PO 300 mg HS IVANIA Administration HCTZ/Losartan Potassium 1 tab 12/05/17 10:00 12/08/17 09:40 Hyzaar - PO 1 tab DAILY [facility] Administration Haloperidol 5 mg 12/05/17 13:15 12/07/17 21:01 Haldol Injection (Fast Acting) - IM 5 mg Q8H PRN Administration AGITATION Heparin Sodium (Porcine) 5,000 unit 12/04/17 22:00 12/08/17 13:58 Heparin - SQ 5,000 unit TID IVANIA Administration CEFTRIAXONE 1 G/50 ML PREMIX 50 mls @ 100 mls/hr 12/05/17 10:00 12/08/17 09: 42 Ceftriaxone 1 Gm-D5w Bag IVPB 100 mls/hr DAILY [facility] Administration Insulin Aspart 1 vial 12/04/17 22:00 12/08/17 12:06 Novolog Vial Sliding Scale - SQ 10 units ACHS IVANIA Administration Protocol Lorazepam 0.5 mg 12/06/17 20:14 12/08/17 13:59 Ativan Injection - IVPUSH 0.5 mg Q8H PRN Administration ANXIETY Metoprolol Succinate 100 mg 12/05/17 10:00 12/08/17 09:40 Toprol Xl - PO 100 mg DAILY [facility] Administration Pantoprazole Sodium 40 mg 12/05/17 10:00 12/08/17 09:40 Protonix - PO 40 mg DAILY [facility] Administration Polyethylene Glycol 17 gm 12/05/17 10:00 12/08/17 09:42 Miralax (For Daily Use) - PO 17 grams DAILY [facility] Administration Prednisone 30 mg 12/09/17 10:00 Deltasone - PO DAILY [facility] Ranolazine 500 mg 12/04/17 22:00 12/08/17 09:40 Ranexa - PO 500 mg BID [facility] Administration Risperidone 1 mg 12/04/17 22:00 12/07/17 21:00 Risperdal - PO 1 mg HS [facility] Administration ASSESSMENT/PLAN 72 year-old woman with a PMH significant for HTN, diastolic HF, CAD s/p stents, COPD oxygen dependent, IDDM and dementia. Admitted for respiratory failure secondary to pneumonia and CHF exacerbation. Hypercarbic, hypoxic respiratory failure --worsening oxygenation --not tolerating BiPAP -- Altered mental status --waxes and wanes --likely multifactorial: hypercarbia, hypoxemia, worsening dementia Acute on chronic diastolic heart failure Left pleural effusion --05/2017 echo: impaired LV relaxation; RV normal; trace to mild AI --worsening CXR --give two doses Lasix IV 40mg today; BID tomorrow; repeat CXR in am --daughter does NOT want thoracentesis; will try to improve with diuresis Pneumonia --CXR: left base infiltrate --ceftriaxone, azithromycin --flu, urine antigens ordered COPD exacerbation --Solumedrol IV 40 q8h --duonebs --inhalers Hypertension --continue Losartan/HCTZ, Toprol XL, amlodipine Coronary artery disease s/p stents --continue Toprol XL, Ranexa, amlodipine, ASA IDDM --Novolog sliding scale coverage Dementia --continue home Risperdal DVT prophylaxis: subq heparin
[2017-12-08] MEDS ORDERED: FUROSEMIDE 40 MG/4 ML INJECTABLE VIAL IVPUSH ONE (15:05)
[2017-12-08] MEDS: ACETAMINOPHEN 325 MG TABLET (FP) PO PRN (17:52)
[2017-12-08] MEDS ORDERED: PT OWN MED DRAWER 7, Y5N ONE (21:04)
[2017-12-08] MEDS ORDERED: INSULIN (NOVOLOG) ASPART 100 UNITS/ML 10ML VIAL ONE (21:04)
[2017-12-08] MEDS: GABAPENTIN 300 MG CAPSULE (FP) PO SCH (21:08)
[2017-12-08] MEDS: risperiDONE 1 MG TABLET (FP) PO SCH (21:08)
[2017-12-08] MEDS: amLODIPine BESYLATE 10 MG TABLET (FP) PO SCH (21:09)
[2017-12-08] MEDS: HALOPERIDOL LACTATE 5 MG/ML IM PRN (21:09)
[2017-12-09] MEDS ORDERED: FUROSEMIDE 40 MG/4 ML INJECTABLE VIAL IVPUSH SCH (06:00)
[2017-12-09] MEDS: HEPARIN NA (PORCINE) 5,000 UNITS/ML 1ML VIAL SQ SCH ×2 (06:36→12:59)
[2017-12-09] MEDS: INSULIN SLIDING SCALE (NOVOLOG) 1 VIAL SQ SCH ×3 (06:37→16:52)
[2017-12-09] MEDS: ALBUTEROL SO4 2.5/IPRATROPIUM 0.5 INH SOL 3 ML VIAL.NEB. NEB SCH ×3 (08:50→16:30)
[2017-12-09] MEDS: RANOLAZINE E.R. 500 MG TABLET (FP) PO SCH (09:38)
[2017-12-09] MEDS: LOSARTAN 50MG/HCTZ 12.5MG 1 TAB (FP) PO SCH (09:38)
[2017-12-09] MEDS: CEFTRIAXONE 1 G/50 ML PREMIX 50 ML IVPB SCH (09:39)
[2017-12-09] MEDS: METOPROLOL SUCCINATE 100 MG TAB.SR.24H (FP) PO SCH (09:39)
[2017-12-09] MEDS: PANTOPRAZOLE 40 MG TABLET (FP) PO SCH (09:39)
[2017-12-09] MEDS: ASPIRIN 81 MG CHEWABLE TABLETS PO SCH (09:39)
[2017-12-09] MEDS: BUDESONIDE/FORMETEROL FUMARATE 80/4.5 mcg INHALER IH SCH (09:41)
[2017-12-09] MEDS: POLYETHYLENE GLYCOL 3350 119 GM BTL PO SCH (09:46)
[2017-12-09] MEDS ORDERED: predniSONE 10 MG TABLET (UD) PO SCH (10:00)
[2017-12-09] MEDS: LORazepam 2 MG/ML SDV VIAL IVPUSH PRN (10:23)
[2017-12-09] MEDS: ACETAMINOPHEN 325 MG TABLET (FP) PO PRN (10:25)
[2017-12-09 11:06] VITALS: BP 121/80; PULSE 86; TEMP 98.2
[2017-12-09 11:24] LABS: BASO % 0.6 % (0-2.0); EOS % 0.4 % (0-4.5); HEMATOCRIT 39.7 % (32.4-45.2); HEMOGLOBIN 12.7 GM/dL (10.7-15.3); MCH 30.7 pg (25.7-33.7); MCHC 31.9 g/dl (32.0-36.0); MEAN PLT VOLUME 8.8 fl (7.5-11.1); MONO % 6.9 % (3.8-10.2); NEUT % 77.1 % (42.8-82.8); PLATELET COUNT 221 K/MM3 (134-434); RBC 4.13 M/mm3 (3.60-5.2); RDW 14.7 % (11.6-15.6)
[2017-12-09 11:57] LABS: ALBUMIN 2.8 g/dl (3.4-5.0); ANION GAP 8 (8-16); BLOOD UREA NITROGEN 29 mg/dL (7-18); CALCIUM 10.7 mg/dL (8.5-10.1); CHLORIDE 93 mmol/L (98-107); CO2 37 mmol/L (21-32); CREATININE 1.2 mg/dL (0.55-1.02); MAGNESIUM 2.2 mg/dL (1.8-2.4); SGOT/AST 19 U/L (15-37); SGPT/ALT 26 U/L (12-78); SODIUM 138 mmol/L (136-145)
[2017-12-09 11:58] LABS: ALK PHOS 98 U/L (45-117); TOT PROT 6.6 g/dl (6.4-8.2)
[2017-12-09 12:22] LABS: BILIRUBIN,TOTAL 0.3 mg/dL (0.2-1.0)
[2017-12-09 12:23] LABS: GLUCOSE,RANDOM 389 mg/dL (74-106)
--- NOTE | 2017-12-09 12:23 | PN ---
Progress Note, Physician History of Present Illness: Dyspnea and O2 requirement improved with resumption of IV diuresis, now on NC. - Current Medication List Current Medications: Active Medications Acetaminophen (Tylenol -) 650 mg PO Q6H PRN PRN Reason: MILD PAIN Last Admin: 12/09/17 10:25 Dose: 650 mg Albuterol/Ipratropium (Duoneb -) 1 amp NEB RQID [facility] Last Admin: 12/09/17 11:04 Dose: 1 amp Amlodipine Besylate (Norvasc -) 10 mg PO HS [facility] Last Admin: 12/08/17 21:09 Dose: 10 mg Aspirin (Asa -) 81 mg PO DAILY [facility] Last Admin: 12/09/17 09:39 Dose: 81 mg Budesonide/Formoterol Fumarate (Symbicort 80/4.5mcg -) 2 puff IH BID [facility] Last Admin: 12/09/17 09:41 Dose: 2 puff Furosemide (Lasix Injection -) 40 mg IVPUSH BID@0600,1400 [facility] Last Admin: 12/09/17 06:36 Dose: 40 mg Gabapentin (Neurontin -) 300 mg PO HS [facility] Last Admin: 12/08/17 21:08 Dose: 300 mg HCTZ/Losartan Potassium (Hyzaar -) 1 tab PO DAILY [facility] Last Admin: 12/09/17 09:38 Dose: 1 tab Haloperidol (Haldol Injection (Fast Acting) -) 5 mg IM Q8H PRN PRN Reason: AGITATION Last Admin: 12/08/17 21:09 Dose: 5 mg Heparin Sodium (Porcine) (Heparin -) 5,000 unit SQ TID [facility] Last Admin: 12/09/17 06:36 Dose: 5,000 unit CEFTRIAXONE 1 G/50 ML PREMIX (Ceftriaxone 1 Gm-D5w Bag) 50 mls @ 100 mls/hr IVPB DAILY [facility] Last Admin: 12/09/17 09:39 Dose: 100 mls/hr Insulin Aspart (Novolog Vial Sliding Scale -) 1 vial SQ ACHS [facility] PRN Reason: Protocol Last Admin: 12/09/17 11:52 Dose: 10 units Lorazepam (Ativan Injection -) 0.5 mg IVPUSH Q8H PRN PRN Reason: ANXIETY Last Admin: 12/09/17 10:23 Dose: 0.5 mg Metoprolol Succinate (Toprol Xl -) 100 mg PO DAILY [facility] Last Admin: 12/09/17 09:39 Dose: 100 mg Pantoprazole Sodium (Protonix -) 40 mg PO DAILY [facility] Last Admin: 12/09/17 09:39 Dose: 40 mg Polyethylene Glycol (Miralax (For Daily Use) -) 17 gm PO DAILY [facility] Last Admin: 12/09/17 09:46 Dose: 17 grams Prednisone (Deltasone -) 30 mg PO DAILY [facility] Last Admin: 12/09/17 09:38 Dose: 30 mg Ranolazine (Ranexa -) 500 mg PO BID [facility] Last Admin: 12/09/17 09:38 Dose: 500 mg Risperidone (Risperdal -) 1 mg PO HS [facility] Last Admin: 12/08/17 21:08 Dose: 1 mg - Objective Vital Signs: Vital Signs Temperature 98.2 F 12/09/17 08:00 Pulse Rate 86 12/09/17 08:00 Respiratory Rate 18 12/09/17 08:00 Blood Pressure 121/80 12/09/17 08:00 O2 Sat by Pulse Oximetry (%) 93 L 12/08/17 21:00 Constitutional: Yes: No Distress, Calm Neck: Yes: Supple Cardiovascular: Yes: Regular Rate and Rhythm Respiratory: Yes: Regular, Diminished, On Nasal O2 Gastrointestinal: Yes: Normal Bowel Sounds, Soft, Abdomen, Obese Edema: No Labs: CBC, BMP 12/09/17 10:55 12/09/17 10:55 INR, PTT INR 1.01 (0.82-1.09) 12/04/17 11:17 - ....Imaging Chest X-ray: Report Reviewed (Moderate left effusion with compressive atelectasis) Problem List - Problems (1) COPD (chronic obstructive pulmonary disease) Code(s): J44.9 - CHRONIC OBSTRUCTIVE PULMONARY DISEASE, UNSPECIFIED Qualifiers: COPD type: unspecified COPD Qualified Code(s): J44.9 - Chronic obstructive pulmonary disease, unspecified (2) Acute on chronic diastolic CHF (congestive heart failure) Code(s): I50.33 - ACUTE ON CHRONIC DIASTOLIC (CONGESTIVE) HEART FAILURE (3) Acute on chronic respiratory failure with hypoxia and hypercapnia Code(s): J96.21 - ACUTE AND CHRONIC RESPIRATORY FAILURE WITH HYPOXIA; J96.22 - ACUTE AND CHRONIC RESPIRATORY FAILURE WITH HYPERCAPNIA (4) Diabetes mellitus Code(s): E11.9 - TYPE 2 DIABETES MELLITUS WITHOUT COMPLICATIONS Qualifiers: Diabetes mellitus type: type 2 Diabetes mellitus complication status: without complication Diabetes mellitus extermination inspector insulin use: without extermination inspector use Qualified Code(s): E11.9 - Type 2 diabetes mellitus without complications (5) Hypertension Code(s): I10 - ESSENTIAL (PRIMARY) HYPERTENSION Qualifiers: Hypertension type: essential hypertension Qualified Code(s): I10 - Essential (primary) hypertension (6) Morbid obesity Code(s): E66.01 - MORBID (SEVERE) OBESITY DUE TO EXCESS CALORIES (7) Right bundle branch block (RBBB) Code(s): I45.10 - UNSPECIFIED RIGHT BUNDLE-BRANCH BLOCK (8) Pleural effusion due to CHF (congestive heart failure) Code(s): I50.9 - HEART FAILURE, UNSPECIFIED Assessment/Plan Echocardiography performed 06/14/2017 revealed Normal LV size and function, abnormal left ventricular compliance, mild aortic dilatation And no significant valve abnormality 1. Acute on chronic hypercapenic, hypoxemic respiratory failure 2. Acute on Chronic left ventricular diastolic failure with pleural effusion improving 3. Coronary artery disease angina pectoris 4. COPD 5. Hypertension/hypertensive cardiovascular disease 6. Diabetes mellitus 7. Hypercholesterolemia 8. Ascending thoracic aortic aneurysm 9. Complete right bundle branch block 10. History of obstructive sleep apnea 11. History of rheumatoid arthritis 12. Prior history of GI bleed PLAN: 1. Decrease Lasix 40 IV qd with close monitoring of diuretic response, renal function and electrolytes, consider thoracentesis if not responding adequately to diuresis 2. Continue Hyzaar 50/12.5 qd, Norvasc 10 qd and Toprol-XL 100 qd 3. Continue Ranexa 500 bid 4. Continue Aspirin 81 qd 5. Continue bronchodilator, O2 to keep SpO2 >88%, Bipap as tolerated, empiric abx course and oral steroid taper as per pulmonary service 6. DVT prophylaxis
[2017-12-09] MEDS: HALOPERIDOL LACTATE 5 MG/ML IM PRN (12:55)
--- NOTE | 2017-12-09 14:06 | PN ---
Progress Note (short form) - Note Progress Note: PULMONARY VSS/AFEBRILE GIVEN HALDOL DUE TO AGITATION VSS/AFEBRILE ANICTERIC DIMINISHED BREATH SOUNDS SCATTERED CRACKLES S1S2 OBESE SOFT LESS EDEMA LABS/MEDS/NOTES/IMAGES NOTED PER NURSE, FAMILY IS CONSIDERING CALVARY Acute on Chronic Hypoxic and Hypercapneic Respiratory Failure Acute on Chronic Diastolic Heart Failure Pleural Effusion COPD HTN DM Dementia - lasix - monitor urine output, creatinine - taper off steroids - can consider left thoracentesis if not responding to diuresis - O2 to keep SpO2 >88% - BiPAP if pt allows - inhaled bronchodilators - DVT proph - agree with comfort care Jessica FRANKLIN MD
--- NOTE | 2017-12-09 18:30 | DS ---
Physical Exam: SUBJECTIVE: Patient seen and examined OBJECTIVE: Vital Signs Period Temp Pulse Resp BP Sys/Cox Pulse Ox Last 24 Hr 97.7 F-98.2 F 83-97 18-19 118-133/75-81 91-93 PHYSICAL EXAM GENERAL: Confused. Agitated with medical interventions. LUNGS: Poor inspiratory effort. Diminished breath sounds throughout. HEART: Regular rate and rhythm, normal S1 and S2 ABDOMEN: Soft, nontender, not distended MUSCULOSKELETAL: Normal range of motion at all joints. No bony deformities or tenderness. No CVA tenderness. UPPER EXTREMITIES: 2+ pulses, warm, well-perfused. No cyanosis. No clubbing. LOWER EXTREMITIES: 2+ pulses, warm, well-perfused. No calf tenderness. Trace bilateral lower extremity edema. LABS CBCD WBC 8.0 K/mm3 (4.0-10.0) 12/09/17 10:55 RBC 4.13 M/mm3 (3.60-5.2) 12/09/17 10:55 Hgb 12.7 GM/dL (10.7-15.3) 12/09/17 10:55 Hct 39.7 % (32.4-45.2) 12/09/17 10:55 MCV 96.0 fl (80-96) 12/09/17 10:55 MCHC 31.9 g/dl (32.0-36.0) L 12/09/17 10:55 RDW 14.7 % (11.6-15.6) 12/09/17 10:55 Plt Count 221 K/MM3 (134-434) 12/09/17 10:55 MPV 8.8 fl (7.5-11.1) 12/09/17 10:55 CMP Sodium 138 mmol/L (136-145) 12/09/17 10:55 Potassium 4.0 mmol/L (3.5-5.1) 12/09/17 10:55 Chloride 93 mmol/L (98-107) L 12/09/17 10:55 Carbon Dioxide 37 mmol/L (21-32) H 12/09/17 10:55 Anion Gap 8 (8-16) 12/09/17 10:55 BUN 29 mg/dL (7-18) H 12/09/17 10:55 Creatinine 1.2 mg/dL (0.55-1.02) H 12/09/17 10:55 Creat Clearance w eGFR 43.91 (>60) 12/09/17 10:55 Calcium 10.7 mg/dL (8.5-10.1) H 12/09/17 10:55 Total Bilirubin 0.3 mg/dL (0.2-1.0) D 12/09/17 10:55 AST 19 U/L (15-37) D 12/09/17 10:55 ALT 26 U/L (12-78) D 12/09/17 10:55 Alkaline Phosphatase 98 U/L (45-117) D 12/09/17 10:55 Total Protein 6.6 g/dl (6.4-8.2) 12/09/17 10:55 Albumin 2.8 g/dl (3.4-5.0) L 12/09/17 10:55 HOSPITAL COURSE: Date of Admission:12/04/17 Date of Discharge: 12/09/17 PAST MEDICAL HISTORY: Hypertension Hyperlipidemia COPD on 3L O2 Diastolic heart failure Coronary artery disease Ascending aortic aneurysm Rheumatoid arthritis IDDM h/o GI bleed Gastric mass Dementia PAST SURGICAL HISTORY Cardiac stents (2012) PRE HOSPITAL COURSE 72 year-old woman with a PMH significant for HTN, diastolic HF, CAD s/p stents, COPD oxygen dependent, IDDM, and dementia, was brought to the ED by her daughter for increased confusion and weakness. Daughter reported patient desatting to 70s on 3L home O2. Patient has had multiple admissions for CHF/ COPD exacerbations. She refuses BiPAP. ER COURSE (1) afebrile, no leukocytosis (2) CXR: progressive left pleural effusion since 10/29/17; left base infiltrate; increased markings right hemithorax (2) Solumedrol 125mg x 1; azithro x 1; zosyn x 1; lasix IV 40mg x 1 (3) duonebs x 1 SUBSEQUENT HOSPITAL COURSE BY PROBLEM LIST Hypercarbic, hypoxic respiratory failure --ABG 7.38/54/64 on 4L --BiPAP ordered but patient refuses --maintain SpO2>92% Altered mental status --likely multifactorial: hypercarbia, hypoxemia, worsening dementia --haldol and ativan PRN for agitation Acute on chronic diastolic heart failure Left pleural effusion --05/2017 echo: impaired LV relaxation; RV normal; trace to mild AI --CXR: progressive left pleural effusion since 10/29/17, increased markings right hemithorax --attempted to aggressively diurese the patient but left pleural effusion persists as of CXR 12/09/17 Pneumonia --CXR: left base infiltrate --continue ceftriaxone: at time of discharge, needs three more doses to complete 7 day course; azithromycin course complete --flu negative --blood cultures negative COPD exacerbation --At time of discharge on prednisone PO 30mg daily; please taper 20mg x 2 days, 10mg x 2 days, 5mg x 2 days, off --duonebs QID --Symbicort 2 puffs BID Hypertension --continue Losartan/HCTZ, Toprol XL, amlodipine Coronary artery disease s/p stents --continue Toprol XL, Ranexa, amlodipine, ASA IDDM --Novolog sliding scale coverage Dementia --continue home Risperdal --Haldol and ativan PRN for agitation DVT prophylaxis: subq heparin Minutes to complete discharge: 35 Discharge Summary Reason For Visit: OBSTRUCTIVE CHRONIC BRONCHITIS Current Active Problems Acute on chronic diastolic CHF (congestive heart failure) (Acute) COPD (chronic obstructive pulmonary disease) (Acute) COPD exacerbation (Acute) Hypercholesterolemia (Acute) Obstructive sleep apnea (Acute) Pleural effusion due to CHF (congestive heart failure) (Acute) Condition: Guarded - Instructions Referrals: Ramona Hill MD [Primary Care Provider] - Disposition: TRANSFER ACUTE CARE/OTHER HOSP - Home Medications Comprehensive Discharge Medication List: Ambulatory Orders Amlodipine Besylate [Norvasc -] 10 mg PO HS 10/25/17 Aspirin [ASA -] 81 mg PO DAILY 10/25/17 Fluticasone Propionate 50 mcg NS DAILY 10/25/17 Gabapentin [Neurontin] 300 mg PO HS 10/25/17 Glipizide [Glipizide ER] 5 mg PO DAILY 10/25/17 Metoprolol Succinate [Toprol Xl] 100 mg PO DAILY 10/25/17 Omeprazole 40 mg PO DAILY 10/25/17 Ranolazine [Ranexa] 500 mg PO BID 10/25/17 Risperidone [Risperdal] 1 mg PO HS 10/25/17 Albuterol 2.5/Ipratropium 0.5 [Duoneb -] 1 amp NEB QIDR amp 10/31/17 Budesonide/Formeterol Fumarate [SYMBICORT 80/4.5mcg -] 2 puff IH BID #1 inhaler 10/31/17 Furosemide [Lasix -] 20 mg PO DAILY #30 tablet 10/31/17 Losartan 50Mg/Hctz 12.5MG [Hyzaar -] 1 tab PO DAILY #30 tablet 10/31/17 Polyethylene Glycol 3350 [Miralax 119 gm Btl -] 17 gm PO DAILY bottle 10/31/17 Insulin (LOG) Aspart [NovoLOG -] 5 units BID 12/04/17 Ceftriaxone 1 G/50 ml Premix [Ceftriaxone 1 gm-D5w Bag] 1 g IVPB DAILY #3 bag Haloperidol Injection [Haldol Injection (Fast Acting) -] 5 mg IM Q8H PRN #5 mg 12/09/17 Lorazepam [Ativan Injection -] 0.5 mg IVPUSH Q8H PRN #0.5 mg MDD 3 12/09/17 This patient is new to me today: No Emergency Visit: Yes ED Registration Date: 12/04/17 Care time: The patient presented to the Emergency Department on the above date and was hospitalized for further evaluation of their emergent condition. Critical Care patient: No - Discharge Referral Referred to [facility] No
[2017-12-10] MEDS ORDERED: FUROSEMIDE 40 MG/4 ML INJECTABLE VIAL IVPUSH SCH ×2 (06:00→10:00)
== END 2017-12-09 20:01 | disposition hospice, inpatient (51) | DRG 291 ==
LOC: JER 10:10 → JERBED 14:39 → J6S 15:56
PROVIDERS: ADMIT Internal Medicine; ATTEND Nurse Practitioner Acute Care
DX: I11.0 Hypertensive heart disease with heart failure (principal); J18.9 Pneumonia, unspecified organism; J96.21 Acute and chronic respiratory failure with hypoxia; J96.22 Acute and chronic respiratory failure with hypercapnia; J44.0 Chronic obstructive pulmonary disease with (acute) lower respiratory infection; J44.1 Chronic obstructive pulmonary disease with (acute) exacerbation; I25.10 Atherosclerotic heart disease of native coronary artery without angina pectoris; I50.33 Acute on chronic diastolic (congestive) heart failure; E11.9 Type 2 diabetes mellitus without complications; Z86.73 Personal history of transient ischemic attack (TIA), and cerebral infarction without residual deficits; F17.210 Nicotine dependence, cigarettes, uncomplicated; Z79.84 Long term (current) use of oral hypoglycemic drugs; Z99.81 Dependence on supplemental oxygen; F03.90 Unspecified dementia, unspecified severity, without behavioral disturbance, psychotic disturbance, mood disturbance, and anxiety; M06.9 Rheumatoid arthritis, unspecified; E78.5 Hyperlipidemia, unspecified; Z66 Do not resuscitate; E66.01 Morbid (severe) obesity due to excess calories; Z98.61 Coronary angioplasty status; I45.10 Unspecified right bundle-branch block; Z68.28 Body mass index [BMI] 28.0-28.9, adult; R19.00 Intra-abdominal and pelvic swelling, mass and lump, unspecified site
CPT/HCPCS: 36415; 36600; 70450-TC; 71045-TC; 80053; 81003; 82550; 82803; 82962; 83735; 83880; 84100; 84484; 85025; 85027; 85610; 85730; 87040; 87086; 87804; 93005; 93010; 94640; 94660; 97116-GP; 97161-GP; 99285-25; J1644; J2794